=== PATIENT | male | born 1980 | race Caucasian/White ===

== ENCOUNTER 2023-04-25 15:43 | Emergency (ER) | payer MEDICAID, SELFPAY ==
[2023-04-25 15:46] VITALS: BP 141/90; PULSE 88; RESP 18; TEMP 36.4; O2SAT 98; BMI 36.0
--- NOTE | 2023-04-25 15:50 | XR_ITS ---
[address] [address] Patient Name: ARIADNA MONTEIRO MRN: [id number] date: 1980 Sex: M Assigned Patient Location: ER Current Patient Location: ER Accession/Order Number: [id number] Exam Date: 04/25/2023 15:55 Report Date: 04/25/2023 16:44 At the request of: GALINA BROWNE Procedure: XR knee LT 4V EXAM: XR knee LT 4V HISTORY: Left knee pain COMPARISON: None. TECHNIQUE: 4 views FINDINGS: No osseous lesion, fracture, dislocation or subluxation. Joint spaces are normal. No visualized effusion. No visualized soft tissue edema. XR/XR knee LT 4V IMPRESSION: Normal x-rays Electronically authenticated by: MICHAEL HATHAWAY Date: 04/25/2023 16:44
--- NOTE | 2023-04-25 16:03 | ED.LOWEXI1 ---
HPI - Extremity Injury (Lower) General Chief Complaint: Extremity Injury, Lower Stated Complaint: KNEE INJURY Time Seen by Provider: 04/25/23 15:47 Source: patient Mode of arrival: walk-in Limitations: no limitations History of Present Illness HPI Narrative: patient is a 42-year-old male who presents to the emergency department for the evaluation of a left knee injury that occurred two days ago. Patient states he was lifting a piece of plywood when it fell onto his left anterior knee. He denies any other associated symptoms or injuries. He reports pain to the left anterior knee with minimal pain to the left posterior knee. He is able to ambulate. No medications taken prior to arrival. Related Data Home Medications Medication Instructions Recorded Confirmed lisinopril 5 mg tablet 5 mg PO DAILY 04/25/23 04/25/23 Previous Rx's Medication Instructions Recorded naproxen sodium 550 mg tablet 550 mg PO BID PRN pain #10 tabs 04/25/23 Allergies Allergy/AdvReac Type Severity Reaction Status Date / Time Penicillins Allergy Intermediate Verified 04/25/23 15:50 tramadol [From Ultra] Allergy Intermediate Verified 04/25/23 15:50 Review of Systems ROS Constitutional Denies: fever or chills Ears, nose, mouth, and throat Denies: throat pain or neck pain Respiratory Denies: shortness of breath or cough Gastrointestinal Denies: nausea or vomiting Musculoskeletal Reports: extremity pain and joint pain; Denies: back pain or neck pain Integumentary/Breast Denies: rash Neurological Denies: headache Allergic/Immunologic Denies: hives Exam Narrative Exam Narrative: Gen.: Awake, alert, in no distress Head: Normocephalic, atraumatic ENT: Moist mucous membranes Respiratory: No respiratory distress Extremities: left knee is mildly edematous, tender to palpation in the left anterior patella and patellar tendon. No obvious deformity or laxity of the knee. No bony point tenderness of the distal tibia or left hip. 2+ left DP pulse. No abrasions or lacerations the left knee, minimal joint effusion noted with minimal pain to the left posterior knee. Pain with flexion and extension. Psych: Normal mood and affect Neuro: No focal neuro deficit Skin: Warm, dry, intact Constitutional Vital Signs, click to edit/add: Last Vital Signs Temp 97.6 F 04/25/23 15:46 Pulse 88 04/25/23 15:46 Resp 18 04/25/23 15:46 BP 141/90 H 04/25/23 15:46 Pulse Ox 98 04/25/23 15:46 O2 Del Method Room Air 04/25/23 15:46 Course Vital Signs Vital signs: Vital Signs Temperature 97.6 F 04/25/23 15:46 Pulse Rate 88 04/25/23 15:46 Respiratory Rate 18 04/25/23 15:46 Blood Pressure 141/90 H 04/25/23 15:46 Pulse Oximetry 98 04/25/23 15:46 Oxygen Delivery Method Room Air 04/25/23 15:46 Temperature 97.6 F 04/25/23 15:46 Pulse Rate 88 04/25/23 15:46 Respiratory Rate 18 04/25/23 15:46 Blood Pressure 141/90 H 04/25/23 15:46 Pulse Oximetry 98 04/25/23 15:46 Oxygen Delivery Method Room Air 04/25/23 15:46 MDM - Extremity Injury (Lower) MDM Narrative Medical decision making narrative: x-rays of the left knee with no evidence of fracture or dislocation. Patient placed in an Jarrell wrap and remains neurovascularly intact. Rest, ice, elevate. Crutches given as needed and the patient started on NSAIDs. Follow-up with PCP and return to the Emergency Room if symptoms change or worsen. Medical Records Attestation: I reviewed the patient's medical records. Imaging Data XR knee: Attestation: I have reviewed the pertinent imaging results. Radiologist's impression: Procedure: XR knee LT 4V EXAM: XR knee LT 4V HISTORY: Left knee pain COMPARISON: None. TECHNIQUE: 4 views FINDINGS: No osseous lesion, fracture, dislocation or subluxation. Joint spaces are normal. No visualized effusion. No visualized soft tissue edema. IMPRESSION: Normal x-rays Electronically authenticated by: MICHAEL HATHAWAY Date: 04/25/2023 16:44 Discharge Plan Discharge Chief Complaint: Extremity Injury, Lower Clinical Impression: Contusion of left knee Patient Disposition: Home, Self-Care Time of Disposition Decision: 16:54 Condition: Good Prescriptions / Home Meds: New naproxen sodium 550 mg tablet 550 mg PO BID PRN (Reason: pain) Qty: 10 0RF No Action lisinopril 5 mg tablet 5 mg PO DAILY Instructions: Contusion in Adults (ED), Knee Pain (ED) Stand Alone Forms: Portal Instructions Referrals: RODRIGUEZ KAPLAN [Primary Care Provider] - 1 week
== END 2023-04-25 17:07 | disposition home or self-care (01) ==
PROVIDERS: Emergency Provider Emergency Medicine; PCP Nurse Practitioner Family
DX: S80.02XA Contusion of left knee, initial encounter (principal); W20.8XXA Other cause of strike by thrown, projected or falling object, initial encounter; Z79.899 Other long term (current) drug therapy
CPT/HCPCS: 73564; 99283

== ENCOUNTER 2023-06-13 12:43 | Outpatient (OUT) | payer MEDICAID, SELFPAY ==
[2023-06-13 13:12] LABS: Basophils Absolute Auto 0.1 10^3/uL (0.0-0.1); Basophils Percent Auto 0.6 % (0.2-2.0); Eosinophils Absolute Auto 0.1 10^3/uL (0.0-0.7); Eosinophils Percent Auto 0.7 % (0.9-7.0); Hemoglobin 15.3 g/dL (14.0-18.0); Immature Granulocytes Abs Auto 0.05 10^3/uL (0.00-0.03); Immature Granulocytes Pct Auto 0.6 % (0.0-0.5); Lymphocytes Absolute Auto 2.4 10^3/uL (1.2-3.8); Lymphocytes Percent Auto 29.3 % (20.5-60.0); Mean Corpuscular HGB Conc 34.8 g/dL (29.9-35.2); Mean Corpuscular Hemoglobin 29.3 pg (25.9-34.0); Mean Corpuscular Volume 84.1 fL (80.0-94.0); Mean Platelet Volume 8.7 fL (9.5-13.5); Monocytes Absolute Auto 0.6 10^3/uL (0.3-0.8); Neutrophils Percent Auto 61.8 % (43.0-75.0); Platelet Count 175 10^3/uL (150-450); Red Blood Count 5.23 10^6/uL (4.70-6.10); Red Cell Distribution Width 12.3 % (11.0-15.0); White Blood Count 8.1 10^3/uL (4.0-11.0)
[2023-06-13 13:31] LABS: Estimated Average Glucose 94 mg/dL; Glycohemoglobin A1C 4.9 % (4.5-6.2)
[2023-06-13 15:01] LABS: Alanine Aminotransferase 42 U/L (16-63); Albumin Globulin Ratio 1.2; Albumin Level 4.3 g/dL (3.4-5.0); Alkaline Phosphatase 92 U/L (46-116); Anion Gap 11.9; Aspartate Amino Transferase 22 U/L (15-37); BUN Creatinine Ratio 18.5; Bilirubin Total 1.4 mg/dL (0.2-1.0); Carbon Dioxide 26.6 mmol/L (21.0-32.0); Chloride 104 mmol/L (98-107); Chol HDL Ratio 5.2; Cholesterol 197 mg/dL (<=200); Estimated GFR (African America >60 (>=60); Estimated GFR (Non-African Ame >60 (>=60); Free T3 3.18 pg/mL (2.18-3.98); Globulin 3.5 g/dL; Glucose 80 mg/dL (74-106); HDL Cholesterol 38 mg/dL (40-60); Potassium 4.5 mmol/L (3.5-5.1); Sodium 138 mmol/L (136-145); Thyroid Stimulating Hormone 2.037 uIU/mL (0.358-3.740); Total Protein 7.8 g/dL (6.4-8.2); Triglycerides 117 mg/dL (<=150); VLDL CHOLESTEROL 23.4 mg/dL
== END 2023-06-13 12:44 | disposition home or self-care (01) ==
LOC: LAB 12:43
PROVIDERS: PCP Nurse Practitioner Family; Visit Provider Nurse Practitioner Family
DX: Z00.00 Encounter for general adult medical examination without abnormal findings (principal)
CPT/HCPCS: 36415; 80053; 80061; 83036; 83525; 84436; 84443; 84481; 85025

== ENCOUNTER 2023-07-25 15:31 | Outpatient (OUT) | payer MEDICAID, SELFPAY ==
--- NOTE | 2023-07-25 15:39 | XR_ITS ---
The [address] [address] Patient Name: ARIADNA MONTEIRO MRN: [id number] date: 1980 Sex: M Assigned Patient Location: [facility] Current Patient Location: Accession/Order Number: [id number] Exam Date: 07/25/2023 15:39 Report Date: 07/27/2023 09:24 At the request of: RODRIGUEZ KAPLAN Procedure: XR lumbar spine 2-3V EXAMINATION: XR lumbar spine 2-3V HISTORY: Sacrococcygeal Disorder M53.3 low back pain for several months; no known injury COMPARISON: XR L-spine 02/22/2022 FINDINGS: BONES: No significant spondylosis, scoliosis, fracture, or visible bony lesion. DISC SPACES: Moderate narrowing L4-5. PARASPINOUS: Negative. No paraspinous abnormality is seen. OTHER: Negative. XR/XR lumbar spine 2-3V IMPRESSION: 1. L4-5 moderate degenerative disc disease; stable to slightly progressed compared to prior study. Electronically authenticated by: APRYL RIOS Date: 07/27/2023 09:24
== END 2023-07-25 15:32 | disposition home or self-care (01) ==
LOC: RAD 15:33
PROVIDERS: PCP Nurse Practitioner Family; Visit Provider Nurse Practitioner Family
DX: M53.3 Sacrococcygeal disorders, not elsewhere classified (principal); M51.36 Other intervertebral disc degeneration, lumbar region
CPT/HCPCS: 72100

== ENCOUNTER 2023-08-19 14:53 | Outpatient (OUT) | payer MEDICAID, SELFPAY ==
--- NOTE | 2023-08-19 14:59 | XR_ITS ---
The [place] [id number] Patient Name: ARIADNA MONTEIRO MRN: [id number] date: 1980 Sex: M Assigned Patient Location: [facility] Current Patient Location: Accession/Order Number: [id number] Exam Date: 08/19/2023 15:20 Report Date: 08/21/2023 22:08 At the request of: RODRIGUEZ KAPLAN Procedure: XR sacrum coccyx min 2V EXAM: XR sacrum coccyx min 2V HISTORY: Back pain COMPARISON: Lumbar spine x-rays 07/25/2023 TECHNIQUE: 3 views FINDINGS: There is no fracture, dislocation, subluxation or osseous lesion. The sacroiliac joints, pubic symphysis and hip joints are normal. The sacrum and coccyx are unremarkable. Age-related changes of the visualized lumbar spine and lumbosacral junction. XR/XR sacrum coccyx min 2V IMPRESSION: Normal x-rays Electronically authenticated by: MICHAEL HATHAWAY Date: 08/21/2023 22:08
== END 2023-08-19 14:54 | disposition home or self-care (01) ==
LOC: RAD 14:54
PROVIDERS: PCP Nurse Practitioner Family; Visit Provider Nurse Practitioner Family
DX: M53.3 Sacrococcygeal disorders, not elsewhere classified (principal)
CPT/HCPCS: 72220

== ENCOUNTER 2023-09-11 00:45 | Emergency (ER) | payer MEDICAID, SELFPAY ==
[2023-09-11 01:19] VITALS: BP 145/81; PULSE 116; RESP 22; TEMP 37.5; O2SAT 96; BMI 36.9
[2023-09-11 01:38] VITALS: PULSE 116
--- NOTE | 2023-09-11 01:47 | ECG_ITS ---
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
--- NOTE | 2023-09-11 01:51 | ED_ITS ---
HPI - Nausea/Vomiting/Diarrhea General Chief complaint: Nausea/Vomiting/Diarrhea Stated complaint: NAuSEA, VOMITING Time Seen by Provider: 09/11/23 01:48 Source: patient Mode of arrival: walk-in Limitations: no limitations History of Present Illness HPI Narrative: patient states he has been ill for a week. cough, chills, feels dizzy. Watery diarrhea for 3 days and body aches. Not short of breath. No abdominal pain. No known exposures MD elicited complaint: Reports diarrhea Related Data Home Medications Medication Instructions Recorded Confirmed lisinopril 5 mg tablet 5 mg PO DAILY 04/25/23 04/25/23 Previous Rx's Medication Instructions Recorded naproxen sodium 550 mg tablet 550 mg PO BID PRN pain #10 tabs 04/25/23 Allergies Allergy/AdvReac Type Severity Reaction Status Date / Time Penicillins Allergy Intermediate Verified 09/11/23 01:24 tramadol [From Ultram] Allergy Intermediate Verified 09/11/23 01:24 Review of Systems ROS Status of ROS 10 or more systems reviewed and unremark able except as noted in history and below Constitutional Reports: fever and chills PFSH PFSH Social History Smoking status: Never smoker Exam Constitutional Vital Signs, click to edit/add: Last Vital Signs Temp 99.5 F 09/11/23 01:19 Pulse 116 H 09/11/23 01:19 Resp 22 09/11/23 01:19 BP 145/81 H 09/11/23 01:19 Pulse Ox 96 09/11/23 01:19 Common normals: no apparent distress, oriented x3, no limitations, healthy appearing and alert Eye Common normals: PERRL and EOMs intact bilaterally Respiratory Common normals: normal respiratory effort, no retractions, no use of accessory muscles and clear to auscultation bilaterally Cardio Common normals: S1 normal heart sound and S2 normal heart sound Rate: tachycardic GI Other: mild RUQ tenderness Extremity Common normals: normal to inspection and full ROM Neuro Common normals: oriented x3, CN's II-XII intact bilaterally, moves all extremities and no focal motor deficits Psych Appearance: grossly normal Course Vital Signs Vital signs: Vital Signs Temperature 99.5 F 09/11/23 01:19 Pulse Rate 116 H 09/11/23 01:19 Respiratory Rate 22 09/11/23 01:19 Blood Pressure 145/81 H 09/11/23 01:19 Pulse Oximetry 96 09/11/23 01:19 Temperature 99.5 F 09/11/23 01:19 Pulse Rate 116 H 09/11/23 01:19 Respiratory Rate 22 09/11/23 01:19 Blood Pressure 145/81 H 09/11/23 01:19 Pulse Oximetry 96 09/11/23 01:19 MDM - Nausea/Vomiting/Diarrhea MDM Narrative Medical decision making narrative: patient presents with cough, diarrhea and body aches. Latic acid elevated but resolved to normal with hydration. Cxray with findings of bronchiolitis. Patient feeling better after hydration and Toradol. discharged home with zithromax and zofran UA with evidence of hematuria. Will have him follow up with his doctor regarding his hematuria Lab Data Labs: Lab Results 09/11/23 09/11/23 09/11/23 Range/Units 01:20 02:40 04:33 WBC 10.8 (4.0-11.0) 10^3/uL RBC 4.97 (4.70-6.10) 10^6/uL Hgb 14.4 (14.0-18.0) g/dL Hct 42.9 (42.0-54.0) % MCV 86.3 (80.0-94.0) fL MCH 29.0 (25.9-34.0) pg MCHC 33.6 (29.9-35.2) g/dL RDW 11.9 (11.0-15.0) % Plt Count 141 L (150-450) 10^3/uL MPV 8.7 L (9.5-13.5) fL Neut % (Auto) 85.5 H (43.0-75.0) % Lymph % (Auto) 7.0 L (20.5-60.0) % [place] % (Auto) 5.8 (1.7-12.0) % Eos % (Auto) 0.2 L (0.9-7.0) % Baso % (Auto) 0.4 (0.2-2.0) % Neut # (Auto) 9.2 H (1.4-6.5) 10^3/uL Lymph # (Auto) 0.8 L (1.2-3.8) 10^3/uL [place] # (Auto) 0.6 (0.3-0.8) 10^3/uL Eos # (Auto) 0.0 (0.0-0.7) 10^3/uL Baso # (Auto) 0.0 (0.0-0.1) 10^3/uL Abs Immat Gran (auto) 0.12 H (0.00-0.03) 10^3/uL Imm/Tot Granulo (auto) 1.1 H (0.0-0.5) % Sodium 135 L (136-145) mmol/L Potassium 3.8 (3.5-5.1) mmol/L Chloride 100 (98-107) mmol/L Carbon Dioxide 26.4 (21.0-32.0) mmol/L Anion Gap 12.4 BUN 15.0 (7.0-18.0) mg/dL Creatinine 1.62 H (0.70-1.30) mg/dL Est GFR ( Amer) 57 L (>=60) Est GFR (Non-Af Amer) 47 L (>=60) BUN/Creatinine Ratio 9.3 Glucose 159 H (74-106) mg/dL Lactate 2.4 H* 0.8 (0.4-2.0) mmol/L Calcium 9.5 (8.5-10.1) mg/dL Total Bilirubin 1.0 (0.2-1.0) mg/dL AST 17 (15-37) U/L ALT 21 (16-63) U/L Alkaline Phosphatase 95 (46-116) U/L Total Protein 7.5 (6.4-8.2) g/dL Albumin 3.7 (3.4-5.0) g/dL Globulin 3.8 g/dL Albumin/Globulin Ratio 1.0 Urine Color Yellow (YELLOW) Urine Clarity Clear (CLEAR) Urine pH 6.0 (5.0-9.0) Ur Specific [place] 1.015 (1.005-1.025) Urine Protein 30 A (NEG/TRACE) mg/dL Urine Glucose (UA) Negative (NEGATIVE) mg/dL Urine Ketones Negative (NEGATIVE) mg/dL Urine Occult Blood Large A (NEGATIVE) Urine Nitrite Negative (NEGATIVE) Urine Bilirubin Negative (NEGATIVE) Urine Urobilinogen 0.2 (0.2-1.0) EU/dL Ur Leukocyte Esterase Negative (NEGATIVE) Urine RBC 0-2 (0-2) #/HPF Urine WBC None seen (NONE SEEN) #/HPF Ur Squamous Epith Cells None seen (NONE/RARE) #/LPF Urine Crystals None seen (None Seen) #/HPF Urine Bacteria None seen (NONE SEEN) #/HPF Urine Casts None seen (NONE SEEN) #/LPF Urine Mucus None seen (NONE SEEN) Urine Sperm Seen Imaging Data Chest x-ray: Radiologist's impression: TABITHA EMERSON Procedure: XR chest 2V XR chest 2V 09/11/2023 2:35 AM EST CLINICAL INDICATION: Cough COMPARISON: None. TECHNIQUE: PA and lateral views of the chest. FINDINGS: There are no tubes or implants noted. The cardiomediastinal silhouette and pulmonary vasculature are within normal limits. Interstitial lung markings with peribronchial cuffing. No lobar consolidation. No pneumothorax or pleural effusion. Osseous structures and soft tissues are within normal limits. XR/XR chest 2V IMPRESSION: Findings which may represent infectious or inflammatory bronchiolitis. Discharge Plan Discharge Chief Complaint: Nausea/Vomiting/Diarrhea Clinical Impression: Bronchiolitis, Gastroenteritis Patient Disposition: Home, Self-Care Prescriptions / Home Meds: No Action lisinopril 5 mg tablet 5 mg PO DAILY naproxen sodium 550 mg tablet 550 mg PO BID PRN (Reason: pain) Qty: 10 0RF Instructions: Gastroenteritis (ED), Acute Bronchitis (ED) Stand Alone Forms: Portal Instructions Referrals: RODRIGUEZ KAPLAN [Primary Care Provider] - 1 week
--- NOTE | 2023-09-11 01:57 | XR_ITS ---
The [place] [id number] Patient Name: ARIADNA MONTEIRO MRN: [id number] date: 1980 Sex: M Assigned Patient Location: ER Current Patient Location: ER Accession/Order Number: [id number] Exam Date: 09/11/2023 02:35 Report Date: 09/11/2023 02:58 At the request of: TABITHA EMERSON Procedure: XR chest 2V XR chest 2V 09/11/2023 2:35 AM EST CLINICAL INDICATION: Cough COMPARISON: None. TECHNIQUE: PA and lateral views of the chest. FINDINGS: There are no tubes or implants noted. The cardiomediastinal silhouette and pulmonary vasculature are within normal limits. Interstitial lung markings with peribronchial cuffing. No lobar consolidation. No pneumothorax or pleural effusion. Osseous structures and soft tissues are within normal limits. XR/XR chest 2V IMPRESSION: Findings which may represent infectious or inflammatory bronchiolitis. Electronically authenticated by: ANDRE MCDANIELS Date: 09/11/2023 02:58
[2023-09-11] MEDS: 0.9 % SODIUM CHLORIDE 1,000 ML 999 ML IV ×2 (02:13→03:07)
[2023-09-11 02:17] LABS: Basophils Percent Auto 0.4 % (0.2-2.0); Eosinophils Percent Auto 0.2 % (0.9-7.0); Hematocrit 42.9 % (42.0-54.0); Hemoglobin 14.4 g/dL (14.0-18.0); Immature Granulocytes Abs Auto 0.12 10^3/uL (0.00-0.03); Immature Granulocytes Pct Auto 1.1 % (0.0-0.5); Lymphocytes Absolute Auto 0.8 10^3/uL (1.2-3.8); Mean Corpuscular HGB Conc 33.6 g/dL (29.9-35.2); Mean Corpuscular Volume 86.3 fL (80.0-94.0); Mean Platelet Volume 8.7 fL (9.5-13.5); Monocytes Absolute Auto 0.6 10^3/uL (0.3-0.8); Monocytes Percent Auto 5.8 % (1.7-12.0); Neutrophils Absolute Auto 9.2 10^3/uL (1.4-6.5); Neutrophils Percent Auto 85.5 % (43.0-75.0); Platelet Count 141 10^3/uL (150-450); Red Blood Count 4.97 10^6/uL (4.70-6.10); Red Cell Distribution Width 11.9 % (11.0-15.0); White Blood Count 10.8 10^3/uL (4.0-11.0)
[2023-09-11 02:29] LABS: Alanine Aminotransferase 21 U/L (16-63); Albumin Level 3.7 g/dL (3.4-5.0); Alkaline Phosphatase 95 U/L (46-116); Anion Gap 12.4; Aspartate Amino Transferase 17 U/L (15-37); BUN Creatinine Ratio 9.3; Calcium 9.5 mg/dL (8.5-10.1); Carbon Dioxide 26.4 mmol/L (21.0-32.0); Chloride 100 mmol/L (98-107); Estimated GFR (African America 57 (>=60); Estimated GFR (Non-African Ame 47 (>=60); Globulin 3.8 g/dL; Glucose 159 mg/dL (74-106); Potassium 3.8 mmol/L (3.5-5.1); Sodium 135 mmol/L (136-145); Total Protein 7.5 g/dL (6.4-8.2)
[2023-09-11 02:47] LABS: Lactate/Lactic Acid 2.4 mmol/L (0.4-2.0)
[2023-09-11 02:53] LABS: Bilirubin Urine NEGATIVE (NEGATIVE); Blood Urine LARGE (NEGATIVE); Clarity Urine CLEAR (CLEAR); Color Urine YELLOW (YELLOW); Glucose Urine UA NEGATIVE (NEGATIVE); Ketones Urine NEGATIVE (NEGATIVE); Leukocyte Esterase Urine NEGATIVE (NEGATIVE); Nitrite Urine NEGATIVE (NEGATIVE); Protein Urine 30 mg/dL (NEG/TRACE); Specific Gravity Urine 1.015 (1.005-1.025); Urobilinogen Urine 0.2 EU/dL (0.2-1.0)
[2023-09-11 02:55] LABS: Urine Microscopic Indicated YES
[2023-09-11 03:01] LABS: Bacteria Urine NONE SEEN #/HPF (NONE SEEN); Cast Seen? NONE SEEN #/LPF (NONE SEEN); Crystals Seen? None Seen #/HPF (None Seen); Mucus Urine NONE SEEN (NONE SEEN); RBC Urine 0-2 #/HPF (0-2); Sperm Urine SEEN; Squamous Epithelial Cell Urine NONE SEEN #/LPF (NONE/RARE); WBC Urine NONE SEEN #/HPF (NONE SEEN)
[2023-09-11] MEDS: ACETAMINOPHEN 325 MG TABLET 1000 MG PO (03:07)
[2023-09-11] MEDS: KETOROLAC TROMETHAMINE 30 MG/ML VIAL IVP (03:50)
[2023-09-11 05:29] LABS: Lactate/Lactic Acid 0.8 mmol/L (0.4-2.0)
[2023-09-11 08:52] LABS: C. Difficile PCR NEGATIVE (NEGATIVE)
== END 2023-09-11 06:07 | disposition home or self-care (01) ==
PROVIDERS: Emergency Provider Internal Medicine; PCP Nurse Practitioner Family
DX: K52.9 Noninfective gastroenteritis and colitis, unspecified (principal); J21.9 Acute bronchiolitis, unspecified; Z79.899 Other long term (current) drug therapy
CPT/HCPCS: 0202U; 36415; 71046; 80053; 81001; 83605; 85025; 87045; 87046; 87427; 87493; 93005; 96361; 96374; 99285

== ENCOUNTER 2023-10-16 21:18 | Emergency (ER) | payer MEDICAID, SELFPAY ==
[2023-10-16] VITALS (19 sets, daily range): BP systolic 126–141; BP diastolic 86–95; PULSE 85–113; RESP 8–24; TEMP 37.1; O2SAT 95–98; BMI 36.5
--- OUTSIDE RECORDS SUMMARY | 2023-10-16 21:23 | XMS_ITS | CCD ---
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 Role Phone Nilo Mendez Unavailable Unavailable JEAN HARPER Primary Care Unavailable KENYATTA KEN Attending Unavailable SANDOVALRI, ARTEMIO Consulting Unavailable Tim, Clari A Primary Care Provider [phone] Tim, Clari A Primary Care Provider [phone] Tim, Clari A Primary Care Provider [phone] TIM, CLARI A Primary Care Unavailable SHAHRZAD ZENG Referring Unavailable TIM, CLARI A Primary Care Unavailable TIM, CLARI A Primary Care Unavailable INTERIANOSAHIL R Referring Unavailable TIM, CLARI A Primary Care Unavailable SAHIL INTERIANO R Referring Unavailable INTERIANOSAHIL R Referring Unavailable TIM, CLARI A Primary Care Unavailable SHAHRZAD ZENG Referring Unavailable TIM, CLARI A Primary Care Unavailable TIM, CLARI A Primary Care Unavailable TIM, CLARI A Primary Care Unavailable INTERIANOSAHIL R Referring Unavailable TIM, CLARI A Primary Care Unavailable INTERIANOSAHIL R Referring Unavailable FATUMA MCKEON Referring Unavailable TIM, CLARI A Primary Care Unavailable INTERIANOSAHIL R Referring Unavailable TIM, CLARI A Primary Care Unavailable INTERIANOSAHIL R Referring Unavailable TIM, CLARI A Primary Care Unavailable SAHIL INTERIANO R Referring Unavailable TIM, CLARI A Primary Care Unavailable TIM, CLARI A Primary Care Unavailable INTERIANOSAHIL R Referring Unavailable TIM, CLARI A Primary Care Unavailable INTERIANOSAHIL R Referring Unavailable TIM, CLARI A Primary Care Unavailable INTERIANO, SAHIL R Referring Unavailable INTERIANO, SAHIL R Referring Unavailable TIM, CLARI A Primary Care Unavailable FRANCIS PINTO Attending Unavailable TIM, CLARI A Primary Care Unavailable KATE OLIVIER Attending Unavailable TIM, CLARI A Primary Care Unavailable EUSEBIO, RODRIGUEZ Primary Care Unavailable CONTRERAS ., DR YULI Schmidt Attending Unavailable CONTRERAS ., DR YULI Schmidt Consulting Unavailable CONTRERAS ., DR YULI Schmidt Admitting Unavailable EUSEBIO, RODRIGUEZ Primary Care Unavailable HOY ., DR PEARSON Referring Unavailable HOY ., DR PEARSON Attending Unavailable HOY ., DR PEARSON Consulting Unavailable HOY ., DR PEARSON Admitting Unavailable WEST, DR MICHAEL Carr Consulting Unavailable ZIEBER, DR RIKI Loera Consulting Unavailable ZIEBER, DR RIKI Loera Consulting Unavailable EUSEBIO, RODRIGUEZ Attending Unavailable EUSEBIO, RODRIGUEZ Admitting Unavailable TIM, CLARI Primary Care Unavailable EUSEBIO, RODRIGUEZ Consulting Unavailable EUSEBIO, RODRIGUEZ Admitting Unavailable EUSEBIO, RODRIGUEZ Attending Unavailable EUSEBIO, RODRIGUEZ Primary Care Unavailable Lakshmi Ruiz DDS Attending Unavailable APLINGTIMOTHY Attending Unavailable APLINGTIMOTHY B Referring Unavailable NILLDavid Attending Unavailable EUSEBIO, RODRIGUEZ S Referring Unavailable Allergies Allergy Classification Reported Allergen(s) Allergy Type Date of Onset Reaction(s) Facility Opioid Agonists (13 sources) traMADol Drug Allergy 6 [facility] Penicillins (antibiotic) (13 sources) Penicillins Drug Allergy 1 [facility] (6 sources) Penicillins; Translations: [penicillins] Propensity to adverse reactions to drug 1 [place] (5 sources) traMADol Drug Allergy 6 [place] (1 source) Penicillin Drug Allergy 8 [facility] (2 sources) traMADol; Translations: [Ultram] Drug Allergy [facility] Medications Current Medications Medication Drug Class(es) Dates Sig (Normalized) Sig (Original) acetaminophen 500 mg oral tablet (18 sources) Start: 01-08-2011 take 1 tablet by mouth every four hours as needed acetaminophen (TYLENOL) 500 MG tablet Take 500 mg by mouth every 4 hours as needed. 0 01/08/2011 Active allopurinol 100 mg oral tablet (14 sources) Xanthine Oxidase Inhibitor End: 09-13-2021 take 1 tablet by mouth once daily allopurinol (ZYLOPRIM) 100 MG tablet Take 100 mg by mouth daily 0 09/13/2021 Discontinued (LIST CLEANUP) citalopram 20 mg oral tablet (5 sources) Serotonin Reuptake Inhibitor take 2 tablets by mouth once daily citalopram (CELEXA) 20 MG tablet Take 40 mg by mouth daily 0 Active take 1 tablet by mouth once stevenson y citalopram (CELEXA) 20 MG tablet Take 20 mg by mouth daily 0 Active ibuprofen 600 mg oral tablet (15 sources) Nonsteroidal Anti-inflammatory Drug Start: 03-01-2021 take 1 tablet by mouth every six hours as needed for pain ibuprofen (IBU) 600 MG tablet Take 1 tablet by mouth every 6 hours as needed for Pain 35 tablet 0 03/01/2021 Active 1 ml ketorolac tromethamine 30 mg/ml cartridge (4 sources) Nonsteroidal Anti-inflammatory Drug, Cyclooxygenase Inhibitor Start: 09-06-2019 ketorolac (TORADOL) injection 30 mg Start: 09-06-2019 take 1 tablet by meme th every eight hours as needed for pain ketorolac (TORADOL) 10 MG tablet Take 1 tablet by mouth every 8 hours as needed for Pain 15 tablet 0 09/06/2019 Active meloxicam 15 mg oral tablet (13 sources) Nonsteroidal Anti-inflammatory Drug Start: 03-27-2021 take 1 tablet by mouth once daily at breakfast meloxicam (MOBIC) 15 MG tablet Take 1 tablet by mouth daily (with breakfast) 60 tablet 1 03/27/2021 Active predniSONE 20 mg oral tablet (2 sources) Start: 09-04-2019 End: 09-11-2019 take 1 tablet by mouth twice daily predniSONE (DELTASONE) 20 MG tablet Take 1 tablet by mouth 2 times daily for 7 days 14 tablet 0 09/04/2019 09/11/2019 Active 1 ml triamcinolone acetonide 40 mg/ml prefilled syringe (13 sources) Corticosteroid Start: 03-27-2021 triamcinolone acetonide (KENALOG-40) injection 40 mg Completed/Discontinued Medications Medication Drug Class(es) Dates Sig (Normalized) Sig (Original) acetaminophen 325 mg / HYDROcodone bitartrate 5 mg oral tablet (3 sources) Opioid Agonist Start: 09-13-2021 End: 09-13-2021 HYDROcodone-acetam inophen (NORCO) 5-325 MG per tablet 1 tablet Start: 09-04-2019 End: 09-09-2019 take 1 tablet by mouth every six hours as needed for pain HYDROcodone-acetaminophen (NORCO) 5-325 MG per tablet Indications: Injury of right knee, initial encounter , Effusion of right knee joint Take 1 tablet by mouth every 6 hours as needed for Pain for up to 5 days. 15 tablet 0 09/04/2019 09/09/2019 Active acetaminophen 325 mg / oxyCODONE hydrochloride 5 mg oral tablet (1 source) Opioid Agonist Start: 09-04-2019 End: 09-04-2019 oxyCODONE-acetaminophen (PERCOCET) 5-325 MG per tablet 2 tablet 200 actuat albuterol 0.09 mg/actuat metered dose inhaler (1 source) beta2-Adrenergic Agonist End: 05-12-2019 take 2 puff(s) by inhalation every six hours as needed for wheezing albuterol (PROVENTIL HFA;VENTOLIN HFA) 108 (90 BASE) MCG/ACT inhaler Inhale 2 puffs into the lungs every 6 hours as needed for Wheezing. 0 05/12/2019 Discontinued (LIST CLEANUP) etodolac 400 mg oral tablet (1 source) Nonsteroidal Anti-inflammator y Drug Start: 09-06-2018 End: 05-12-2019 take 1 tablet by mouth twice daily etodolac (LODINE) 400 MG tablet Take 1 tablet by mouth 2 times daily 30 tablet 0 09/06/2018 05/12/2019 Discontinued (LIST CLEANUP) Problems Active Problems Problem Classification Problem Date Documented Date Episodic/Chronic Abdominal pain (1 source) Flank pain; Translations: [Unspecified abdominal pain] Episodic Essential hypertension (1 source) Essential (primary) hypertension; Translations: [ESSENTIAL PRIMARY HYPERTENSION] Onset: 07-09-2022 Chronic Genitourinary symptoms and ill-defined conditions (1 source) Microscopic hematuria; Translations: [Other microscopic hematuria] Episodic Other connective tissue disease (14 sources) Weakness of right hand; Translations: [Other symptoms and signs involving the musculoskeletal system] 04-20-2019 Episodic Other connective tissue disease (4 sources) Weakness of right hand; Translations: [Right hand weakness] 04-20-2019 Other diseases of kidney and ureters (1 source) Hydronephrosis due to ureteral obstruction; Translations: [Hydronephrosis with renal and ureteral calculous obstruction] Episodic Other nervous system disorders (1 source) Other specified diseases of spinal cord; Translations: [OTH SPECIFIED DISEASES SPINAL CORD] Onset: 07-09-2022 Chronic Other non-traumatic joint disorders (4 sources) Effusion of right knee joint; Translations: [Effusion of right knee joint] Onset: 09-04-2019 09-04-2019 Residual codes; unclassified (1 source) Pain; Translations: [Pain, unspecified] Episodic Rheumatoid arthritis and related disease (8 sources) Seropositive rheumatoid arthritis; Translations: [Rheumatoid arthritis with rheumatoid factor, unspecified] Chronic Spondylosis; intervertebral disc disorders; other back problems (6 sources) Other intervertebral disc degeneration, lumbar region; Translations: [Spondylosis without myelopathy or radiculopathy, lumbar region] Onset: 02-25-2022 Chronic Sprains and strains (4 sources) Sprain of knee; Translations: [Strain of muscle of upper limb] Episodic Unclassified (4 sources) Injury of right knee; Translations: [Injury of right knee, initial encounter] Onset: 09-04-2019 09-04-2019 Unclassified (3 sources) LOW BACK PAIN, UNSPECIFIED; Translations: [LOW BACK PAIN, UNSPECIFIED] Onset: 07-09-2022 Past or Other Problems Problem Classification Problem Date Documented Da te Episodic/Chronic Gastrointestinal hemorrhage (18 sources) Rectal hemorrhage; Translations: [Hemorrhage of anus and rectum] Onset: 01-12-2011 01-12-2011 Episodic Open wounds of head; neck; and trunk (18 sources) Fracture of tooth ; Translations: [Fracture of tooth (traumatic), initial encounter for closed fracture] Onset: 09-06-2018 09-06-2018 Episodic Other gastrointestinal disorders (18 sources) Diarrhea; Translations: [Diarrhea, unspecified] Onset: 01-12-2011 01-12-2011 Episodic Other injuries and conditions due to external causes (14 sources) Injury of right knee; Translations: [Unspecified injury of right lower leg, initial encounter] Onset: 09-04-2019 09-04-2019 Episodic Other non-traumatic joint disorders (14 sources) Effusion of right knee joint; Translations: [Effusion, right knee] Onset: 09-04-2019 09-04-2019 Episodic Superficial injury; contusion (19 sources) Contusion of face; Translations: [Contusion of hand] Onset: 09-06-2018 09-06-2018 Episodic Unclassified (1 source) LOW BACK PAIN, UNSPECIFIED; Translations: [LOW BACK PAIN, UNSPECIFIED] Onset: 07-06-2022 Results Test Name Value Interpretation Reference Range Facility Physician Referralon 023 Physician Referral [id number] Normal [facility] MRI LSPINE WO CONon 05-21-20 22 MRI LSPINE WO CON EXAMINATION: MRI LSPINE WO CON HISTORY: Degeneration of lumbar intervertebral disc COMPARISON: No relevant comparison available. TECHNIQUE: A variety of imaging planes and parameters were utilized for visualization of suspected pathology. FINDINGS: For the purposes of numbering, sagittal T2 image # 8 extends from the T11 vertebral body superiorly to the S4 level inferiorly. PARASPINAL AREA: Normal with no visible mass. BONES: Normal alignment of the lumbar vertebral bodies with no acute fracture or spondylolisthesis. Increased T1 and T2 signal in the L4 and L5 vertebral bodies likely representing Modic type II changes. Round area of signal abnormality in the L4 vertebral body measuring 1.8 cm, a hemangioma is favored CORD/CAUDA EQUINA: Normal caliber, contour, and signal intensity. DISC LEVELS: 12-L1: No significant disc/facet abnormality, spinal stenosis, or foraminal stenosis. L1-L2: No significant disc/facet abnormality, spinal stenosis, or foraminal stenosis. L2-L3: No significant disc/facet abnormality, spinal stenosis, or foraminal stenosis. L3-L4: No significant disc/facet abnormality, spinal stenosis, or foraminal stenosis. L4-L5: Moderate disc space narrowing and disc desiccation with endplate sclerosis. Mild diffuse disc/osteophyte complex and facet osteoarthropathy. No central canal stenosis. Minimal bilateral foraminal stenosis. L5-S1: No significant disc/facet abnormality, spinal stenosis, or foraminal stenosis. IMPRESSION: Moderate discogenic and degenerative changes L4-L5 resulting in minimal bilateral foraminal stenosis Electronically authenticated by: MICHAEL RAE Date: 2022-05-21 18:38 Normal [facility] XR FOREIGN BODY EYEon 2021 XR FOREIGN BODY EYE EXAMINATION: XR FOREIGN BODY EYE HISTORY: Foreign body in eye COMPARISON: No relevant comparison available. FINDINGS: ORBITS: Negative for a metallic foreign body. OTHER: Negative. IMPRESSION: 1. No metallic foreign body within the orbits. Electronically authenticated by: RIKI RIOS Date: 2022-05-21 10:36 Normal [facility] XR LSPINE MIN 4 VIEWSon 02-01 XR LSPINE MIN 4 VIEWS EXAMINATION: XR LSPINE MIN 4 VIEWS HISTORY: Low back pain COMPARISON: XR lumbar spine 10/18/2016 FINDINGS: BONES: Unchanged mild anterior wedging of T12 vertebral body; developmental versus remote injury. No acute fracture, bone lesion, or listhesis. Mild degenerative facet arthropathy L4-5. DISC SPACES: Moderate narrowing L4-5. Mild narrowing L5-S1. PARASPINOUS: Negative. No paraspinous abnormality is seen. OTHER: Negative. IMPRESSION: 1. Mild to moderate degenerative changes of the lower lumbar spine; slightly progressed compared to 2017. Electronically authenticated by: RIKI RIOS Date: 2022-02-22 11:06 Normal [facility] CBC with Diffon 09-23-2021 Abs. Basophil 0.02 k/uL Normal 0.0-0.2 [facility] Comment on above: Performed By: #### C ELOY LOPEZ, IPF ####[address] [place] [address] Lab Director: Michael Meyer MD Abs.Imm.Granulocyte 0.02 k/uL Normal 0.00-0.30 [facility] Comment on above: Performed By: #### C ELOY LOPEZ, IPF ####[address] [place] [address] lab Director: Michael Meyer MD Abs.Neutrophil (Seg) 1.28 k/uL Low 1.50-8.10 [facility] Comment on above: Performed By: #### C ELOY LOPEZ, IPF ####[address] [place] [address] lab Director: Michael Meyer MD Basophils/100 WBC (Bld) 1 % Normal 0-2 [facility] Comment on above: Performed By: #### C DP, CP, IPF ####[address] , [place] [id number] Lab Director: Michael Meyer MD Eosinophils (Bld) [#/Vol] 0.00 10*3/uL Normal 0.00-0.44 [facility] Comment on above: Performed By: #### C DP, CP, IPF ####[address] , [place] [id number] Lab Director: Michael Meyer MD Eosinophils/100 WBC (Bld) 0 % Low 1-4 [facility] Comment on above: Performed By: #### C DP, CP, IPF ####[address] , [facility]83 Lab Director: Michael Meyer MD Immature granulocytes/100 WBC (Bld) 1 % High 0 [facility] Comment on above: Performed By: #### C JESSICA, CP, IPF ####[address] , [facility]83 Lab Director: Michael Meyer MD Lymphocytes (Bld) [#/Vol] 0.73 10*3/uL Low 1.10-3.70 [facility] Comment on above: Performed By: #### C DP, CP, IPF ####[address] [place] [address] Lab Director: Michael Meyer MD Lymphocytes/100 WBC (Bld) 33 % Normal 24-43 [facility] Comment on above: Performed By: #### C DP, CP, IPF ####[address] , [place] [id number] Lab Director: Michael Meyer MD Monocytes (Bld) [#/Vol] 0.15 10*3/uL Normal 0.10-1.20 [facility] Comment on above: Performed By: #### C DP, CP, IPF ####[address] , [place] [id number] Lab Director: Michael Meyer MD Monocytes/100 WBC (Bld) 7 % Normal 3-12 [facility] Comment on above: Performed By: #### C DP, CP, IPF ####[address] , [facility]83 Lab Director: Michael Meyer MD Morphology Fernando (Bld) [Interp] Platelet scan shows Normal Platelets Normal [facility] Comment on above: Performed By: #### C DP, CP, IPF ####[address] , [facility]83 Lab Director: Michael Meyer MD Neutrophil (Seg) 58 % Normal 36-65 [facility] Comment on above: Performed By: #### C DP, CP, IPF ####[address] , [facility]83 Lab Director: Michael Meyer MD Erythrocyte distribution width (RBC) [Ratio] 11.2 % Low 11.8-14.4 [facility] Comment on above: Performed By: #### C DP, CP, IPF ####[address] , [place] [id number] Lab Director: Michael Meyer MD Hematocrit (Bld) [Volume fraction] 46.3 % Normal 40.7-50.3 [facility] Comment on above: Performed By: #### C DP, CP, IPF ####[address] [place] [address] Lab Director: Michael Meyer MD Hemoglobin (Bld) [Mass/Vol] 15.6 g/dL Normal 13.0-17.0 [facility] Comment on above: Performed By: #### C DP, CP, IPF ####[address] , [place] [address] Lab Director: Michael Meyer MD MCH (RBC) [Entitic mass] 28.5 pg Normal 25.2-33.5 [facility] Comment on above: Performed By: #### C DP, CP, IPF ####[address] , [place] [id number] lab Director: Michael Meyer MD MCHC (RBC) [Mass/Vol] 33.7 g/dL Normal 28.4-34.8 [facility] Comment on above: Performed By: #### C DP, CP, IPF ####[address] [place] [address] [facility] Director: Michael Meyer MD MCV (RBC) [Entitic vol] 84.6 fL Normal 82.6-102.9 [facility] Comment on above: Performed By: #### C DP, CP, IPF ####[address] [place] [address] Cds Director: Michael Meyer MD NRBC Automated 0.0 per 100 WBC Normal 0.0 [facility] Comment on above: Performed By: #### C DP, CP, IPF ####[address] , [place] [id number] lab Director: Michael Meyer MD Platelet Count See Reflexed IPF Result Normal 138-453 [facility] Comment on above: Performed By: #### C DP, CP, IPF ####[address] , [place] [id number] Lab Director: Michael Meyer MD RBC (Bld) [#/Vol] 5.47 10*6/uL Normal 4.21-5.77 [facility] Comment on above: Performed By: #### C DP, CP, IPF ####[address] , [place] [id number] Lab Director: Michael Meyer MD WBC (Bld) [#/Vol] 2.2 10*3/uL Low 3.5-11.3 [facility] Comment on above: Performed By: #### C DP, CP, IPF ####[facility] [place] [address] Lab Director: Michael Meyer MD Auto Diff Performed NOT REPORTED Normal [facility] Comment on above: Performed By: #### C DP, CP, IPF ####[address] , [place] [phone] Director: Michael Meyer MD MPV NOT REPORTED Normal 8.1-13.5 [facility] Comment on above: Performed By: #### C DP, CP, IPF ####[address] [place] [address] Lab Director: Michael Meyer MD Platelet Comment NOT REPORTED Normal [facility] Comment on above: Performed By: #### C DP, CP, IPF ####[address] [place] [address] Lab Director: Michael Meyer MD RBC morphology finding Nom (Bld) NOT REPORTED Normal [facility] Comment on above: Performed By: #### C DP, CP, IPF ####[address] , [place] [phone] Director: Michael Meyer MD WBC Morphology NOT REPORTED Normal [facility] Comment on above: Performed By: #### C DP, CP, IPF ####[address] [place] [address] Lab Director: Michael Meyer MD Comp Metabolic Profon 2020 (cont.) Normal [facility] Comment on above: Result Comment: Aver age GFR for 40-49 years old: 99 mL/min/1.73sq m Chronic Kidney Disease: <60 mL/min/1.73sq m Kidney failure: <15 mL/min/1.73sq m eGFR calculated using average adult body mass. Additional eGFR calculator available at: http://[email or web address]_crcl_2012.htm Performed By: #### C DP, CP, IPF ####[address] [place] [address] Lab Director: Michael Meyer MD Albumin [Mass/Vol] 4.1 g/dL Normal 3.5-5.2 [facility] Comment on above: Performed By: #### C DP, CP, IPF ####[address] [place] [address] Lab Director: Michael Meyer MD Albumin/Glob Ratio 1.1 Normal 1.0-2.5 [facility] Comment on above: Performed By: #### C DP, CP, IPF ####[address] [place] [address] Lab Director: Michael Meyer MD Alkaline Phos 87 U/L Normal 40-129 [facility] Comment on above: Performed By: #### C DP, CP, IPF ####[address] [place] [address] Lab Director: Michael Meyer MD ALT [Catalytic activity/Vol] 65 U/L High 5-41 [facility] Comment on above: Performed By: #### C DP, CP, IPF ####[address] [place] [address] Lab Director: Micheal Meyer MD Anion gap [Moles/Vol] 13 mmol/L Normal 9-17 [facility] Comment on above: Performed By: #### C DP, CP, IPF ####[address] [place] [address] Lab Director: Michael Meyer MD AST [Catalytic activity/Vol] 68 U/L High <40 [facility] Comment on above: Performed By: #### C DP, CP, IPF ####[address] , [place] [id number] Lab Director: Michael Meyer MD Bilirubin [Mass/Vol] 0.52 mg/dL Normal 0.3-1.2 [facility] Comment on above: Performed By: #### C DP, CP, IPF ####[address] , [place] [id number] lab Director: Michael Meyer MD BUN/CRE Ratio 8 Low 9-20 [facility] Comment on above: Performed By: #### C DP, CP, IPF ####[address] , [place] [id number] lab Director: Michael Meyer MD Calcium [Mass/Vol] 8.8 mg/dL Normal 8.6-10.4 [facility] Comment on above: Performed By: #### C DP, CP, IPF ####[address] , [place] [id number] Lab Director: Michael Meyer MD Chloride [Moles/Vol] 100 mmol/L Normal 98-107 [facility] Comment on above: Performed By: #### C DP, CP, IPF ####[address] [place] [address] Lab Director: Michael Meyer MD CO2 [Moles/Vol] 23 mmol/L Normal 20-31 [facility] Comment on above: Performed By: #### C DP, CP, IPF ####[address] , [place] [id number] lab Director: Michael Meyer MD Creatinine [Mass/Vol] 1.55 mg/dL High 0.70-1.20 [facility] Comment on above: Performed By: #### C DP, CP, IPF ####[address] [place] [address] Lab Director: Michael Meyer MD GFR, Amer >60 Normal >60 [facility] Comment on above: Performed By: #### C DP, CP, IPF ####[address] [place] [address] Lab Director: Michael Meyer MD GFR,non Amer 50 mL/min Low >60 [facility] Comment on above: Performed By: #### C DP, CP, IPF ####[address] [place] [address] Lab Director: Michael Meyer MD Glucose [Mass/Vol] 94 mg/dL Normal 70-99 [facility] Comment on above: Performed By: #### C DP, CP, IPF ####[address] [place] [address] Lab Director: Michael Meyer MD Potassium [Moles/Vol] 3.9 mmol/L Normal 3.7-5.3 [facility] Comment on above: Performed By: #### C DP, CP, IPF ####[address] [place] [address] Lab Director: Michael Meyer MD Protein [Mass/Vol] 7.9 g/dL Normal 6.4-8.3 [facility] Comment on above: Performed By: #### C DP, CP, IPF ####[address] [place] [address] Lab Director: Michael Meyer MD Sodium [Moles/Vol] 136 mmol/L Normal 135-144 [facility] Comment on above: Performed By: #### C DP, CP, IPF ####[address] [place] [address] Lab Director: Michael Meyer MD Staging: Normal [facility] Comment on above: Result Comment: Stag e 1: Some kidney damage normal GFR Stage 2: Mild kidney damage GFR 60-89 Stage 3: Moderate kidney damage GFR 30-59 Stage 4: Severe kidney damage GFR 15-29 Stage 5: Severe kidney damage GFR <15 ESRD - chronic treatment by dialysis or transplant Performed By: #### C DP, CP, IPF ####[address] , [place] [id number] [facility] Director: Michael Meyer MD Urea nitrogen [Mass/Vol] 13 mg/dL Normal 6-20 [facility] Comment on above: Performed By: #### C JESSICA, CP, IPF ####[address] [place] [address] Lab Director: Michael Meyer MD Lactic Acidon 09-23-2021 Lactate [Moles/Vol] 0.9 mmol/L Normal 0.5-2.2 [facility] Comment on above: Performed By: #### L ACTIC ####[address] [place] [address] [facility] Director: Michael Meyer MD Lactic Acid,Whole Bl NOT REPORTED Normal 0.7-2.1 [facility] Comment on above: Performed By: #### L ACTIC ####[address] [place] [address] [facility] Director: Michael Meyer MD PLT, Immature Fract.on 09-23 Platelet, Fluoresc. 42 k/uL Low 138-453 [facility] Comment on above: Performed By: #### C DP, CP, IPF #### [address] [place] [address] Medical Laboratory Technical Officer: Michael Meyer MD PLT, Immature Fract. 1.2 % Normal 1.1-10.3 [facility] Comment on above: Performed By: #### C DP, CP, IPF #### [address] [place], [place] [id number] Medical Laboratory Technical Officer: Michael Meyer MD XR CHEST (SINGLE VIEW FRONTA L)on 09-23-2021 XR CHEST (SINGLE VIEW FRONTAL) EXAMINATION: ONE XRAY VIEW OF THE CHEST 09/22/2021 10:38 pm COMPARISON: 04/20/2019 HISTORY: ORDERING SYSTEM PROVIDED HISTORY: sob cough and pos covid test TECHNOLOGIST PROVIDED HISTORY: sob cough and pos covid test FINDINGS: Heart size and pulmonary vasculature are normal. Minor patchy interstitial/airsp linnette opacities are present bilaterally. Lung volumes are low. No pneumothorax or pleural effusion. Surrounding structures are unremarkable. IMPRESSION: Findings compatible with early COVID-19 pneumonia. Interpreted by: Julio C Calderón Signed by: Julio C Calderón 09/22/21 Final result Normal [facility] Resp Viral Panelon 1 Adenovirus Not detected Normal [facility] Comment on above: Performed By: #### R MONITORING ENGINEER ####[address] [address] Lab Director: Juan R Tang[address] [place] [id number] Lab Director: Michael Meyer MD Bordet.parapertussis Not detected Normal [facility] Comment on above: Performed By: #### R MONITORING ENGINEER ####[address] [place] [address] Lab Director: Juan R Tang[address] [place] [id number] Lab Director: Michael Meyer MD Bordetella pertussis Not detected Normal [facility] Comment on above: Performed By: #### R MONITORING ENGINEER ####[address] [place] [address] Lab Director: Juan R Tang[address] [place] [address] Lab Director: Michael Meyer MD Chlamyd.pneumoniae Not detected Normal [facility] Comment on above: Performed By: #### R MONITORING ENGINEER ####[facility] [address] [place] [address] Lab Director: Juan R [facility] [place] [address] Lab Director: Michael Meyer MD Coronavirus 229E Not detected [facility] Comment on above: Performed By: #### R MONITORING ENGINEER ####[address] [address] Lab Director: Juan R Tang[address] [place] [phone] Director: Michael Meyer MD Coronavirus HKU1 Not detected [facility] Comment on above: Performed By: #### R MONITORING ENGINEER ####[address] [address] Lab Director: Juan R [address] [place] [phone] Director: Michael Meyer MD Coronavirus NL63 Not detected [facility] Comment on above: Performed By: #### R MONITORING ENGINEER ####[address] [address] Lab Director: Juan R [address] [place] [address] Lab Director: Michael Meyer MD Coronavirus OC43 Not detected [facility] Comment on above: Performed By: #### R MONITORING ENGINEER ####[address] [place] [address] Lab Director: Juan R [address] [place] [address] Lab Director: Michael Meyer MD Human Metapneumo Not detected [facility] Comment on above: Performed By: #### R MONITORING ENGINEER ####[facility] [address] [place], [place] [phone] Director: Juan R [address] [place] [address] Lab Director: Michael Meyer MD Influenza A Not detected Normal [facility] Comment on above: Performed By: #### R MONITORING ENGINEER ####[facility] [address] [place] [address] Lab Director: Juan R [address] [place] [address] Lab Director: Michael Meyer MD Influenza B Not detected [facility] Comment on above: Performed By: #### R MONITORING ENGINEER ####[facility] [address] [place], [place] [phone] Director: Juan R [address] [place] [address] Lab Director: Michael Meyer MD Mycoplas.pneumoniae Not detected Normal [facility] Comment on above: Result Comment: Perf ormed by multiplexed nucleic acid assay. Performed By: #### R MONITORING ENGINEER ####[facility] [address] [place], [place] [id number])[phone] Director: Juan R [address] [place] [address] Lab Director: Michael Meyer MD Parainfluenza 1 Not detected Normal [facility] Comment on above: Performed By: #### R MONITORING ENGINEER ####[facility] [address] [place], [place] [id number])[phone] Director: Juan R [address] [place] [address] Lab Director: Michael Meyer MD Parainfluenza 2 Not detected Normal [facility] Comment on above: Performed By: #### R MONITORING ENGINEER ####[facility] [address] [place], [place] [id number])[phone] Director: Juan R [address] [place] [address] Lab Director: Michael Meyer MD Parainfluenza 3 Not detected Normal [facility] Comment on above: Performed By: #### R MONITORING ENGINEER ####[facility] [address] [place], [place] [phone])[phone] Director: Juan R Tang[address] [place] [address] Lab Director: Michael Meyer MD Parainfluenza 4 Not detected Normal [facility] Comment on above: Performed By: #### R MONITORING ENGINEER ####[facility] [address] [place] [address] Lab Director: Juan R [address] [place] [address] Lab Director: Michael Meyer MD Resp Syncytial Virus Not detected Normal [facility] Comment on above: Performed By: #### R MONITORING ENGINEER ####[facility] [address] [place], [place] [id number])[phone] Director: Juan R [address] [place] [address] Lab Director: Michael Meyer MD Rhino/Enterovirus Not detected Normal [facility] Comment on above: Performed By: #### R MONITORING ENGINEER ####[facility] [address] [place] [address] Lab Director: Juan R [address] [place] [address] Lab Director: Michael Meyer MD SARS-CoV-2 (COVID-19) RNA LYNDON+probe Ql (Unsp spec) Detected Abnormal [facility] Comment on above: Result Comment: Resu lts reported to the appropriate Health Department Performed By: #### R MONITORING ENGINEER ####[facility] [address] [place], [place] [id number])[phone] Director: Juan R [address] [place] [address] Lab Director: Michael Meyer MD Resp Viral Panelon 1 Source: .NASOPHARYNGEAL SWAB Normal [facility] Comment on above: Performed By: #### R MONITORING ENGINEER ####[facility] [address] [place], [place] [phone] Director: Juan R [facility] [place] [address] Lab Director: Michael Meyer MD Influenza A H1 NOT REPORTED Normal [facility] Comment on above: Performed By: #### R MONITORING ENGINEER ####[facility] [address] [place], [place] [phone])[phone] Director: Juan R [address] [place] [address] Lab Director: Michael Meyer MD Influenza A H1-2009 NOT REPORTED Normal [facility] Comment on above: Performed By: #### R MONITORING ENGINEER ####[facility] [address] [place] [address] Lab Director: Juan R [address] [place] [address] Lab Director: Michael Meyer MD Influenza A H3 NOT REPORTED Normal [facility] Comment on above: Performed By: #### R MONITORING ENGINEER ####[facility] [address] [place], [place] [phone])[phone] Director: Juan R Tang[address] [place] [address] Lab Director: Michael Meyer MD No Panel Informationon 09-13 No acute findings. [facility] EXAMINATION: THREE XRAY VIEWS OF THE RIGHT ANKLE; THREE XRAY VIEWS OF THE LEFT FOOT 09/13/2021 9:16 am COMPARISON: None. HISTORY: ORDERING SYSTEM PROVIDED HISTORY: Pain TECHNOLOGIST PROVIDED HISTORY: Pain FINDINGS: No acute fracture demonstrated. 2 threaded screws noted medial malleolus from repair prior injury. Alignment anatomic. Small plantar and dorsal calcaneal spurs present. Ipou-qx-orihmess degenerative change primarily midfoot. Overall alignment anatomic. Soft tissues unremarkable. [facility] Jeronimo Art DO - 09/13/2021 EXAMINATION: THREE XRAY VIEWS OF THE RIGHT ANKLE; THREE XRAY VIEWS OF THE LEFT FOOT 09/13/2021 9:16 am COMPARISON: None. HISTORY: ORDERING SYSTEM PROVIDED HISTORY: Pain TECHNOLOGIST PROVIDED HISTORY: Pain FINDINGS: No acute fracture demonstrated. 2 threaded screws noted medial malleolus from repair prior injury. Alignment anatomic. Small plantar and dorsal calcaneal spurs present. Ddtu-vt-wvujsawm degenerative change primarily midfoot. Overall alignment anatomic. Soft tissues unremarkable. IMPRESSION: No acute findings. [employer] Work Phone: [facility] Work Phone: No acute findings. [facility] EXAMINATION: THREE XRAY VIEWS OF THE RIGHT FOOT; THREE XRAY VIEWS OF THE LEFT ANKLE 09/13/2021 9:14 am COMPARISON: None. HISTORY: ORDERING SYSTEM PROVIDED HISTORY: pain TECHNOLOGIST PROVIDED HISTORY: pain FINDINGS: No acute fracture demonstrated. Alignment is anatomic. 2 threaded screws noted within the medial malleolus. Hult-uz-yrpufngz degenerative change primarily midfoot. Small plantar and dorsal calcaneal spurs present. Soft tissues unremarkable. [facility] Jeronimo Art DO - 09/13/2021 EXAMINATION: THREE XRAY VIEWS OF THE RIGHT FOOT; THREE XRAY VIEWS OF THE LEFT ANKLE 09/13/2021 9:14 am COMPARISON: None. HISTORY: ORDERING SYSTEM PROVIDED HISTORY: pain TECHNOLOGIST PROVIDED HISTORY: pain FINDINGS: No acute fracture demonstrated. Alignment is anatomic. 2 threaded screws noted within the medial malleolus. Lfuz-le-hooubabx degenerative change primarily midfoot. Small plantar and dorsal calcaneal spurs present. Soft tissues unremarkable. IMPRESSION: No acute findings. [employer] Phone: No Panel InformationOrdered By: Jeronimo Art on 09-13-2021 [employer] Phone: XR ANKLE LEFT (MIN 3 VIEWS)o n 09-13-2021 XR ANKLE LEFT (MIN 3 VIEWS) EXAMINATION: THREE XRAY VIEWS OF THE RIGHT FOOT; THREE XRAY VIEWS OF THE LEFT ANKLE 09/13/2021 9:14 am COMPARISON: None. HISTORY: ORDERING SYSTEM PROVIDED HISTORY: pain TECHNOLOGIST PROVIDED HISTORY: pain FINDINGS: No acute fracture demonstrated. Alignment is anatomic. 2 threaded screws noted within the medial malleolus. Jbsr-ss-uhxekobj degenerative change primarily midfoot. Small plantar and dorsal calcaneal spurs present. Soft tissues unremarkable. IMPRESSION: No acute findings. Interpreted by: Jeronimo Art DO Signed by: Jeronimo Art DO 09/13/21 Final result Normal [facility] Radiology Study observation (narrative) [employer] Phone: XR ANKLE RIGHT (MIN 3 VIEWS) on 09-13-2021 XR ANKLE RIGHT (MIN 3 VIEWS) EXAMINATION: THREE XRAY VIEWS OF THE RIGHT ANKLE; THREE XRAY VIEWS OF THE LEFT FOOT 09/13/2021 9:16 am COMPARISON: None. HISTORY: ORDERING SYSTEM PROVIDED HISTORY: Pain TECHNOLOGIST PROVIDED HISTORY: Pain FINDINGS: No acute fracture demonstrated. 2 threaded screws noted medial malleolus from repair prior injury. Alignment anatomic. Small plantar and dorsal calcaneal spurs present. Cwry-tc-ewzphoam degenerative change primarily midfoot. Overall alignment anatomic. Soft tissues unremarkable. IMPRESSION: No acute findings. Interpreted by: Jeronimo Art DO Signed by: Jeronimo Art DO 09/13/21 Final result Normal [facility] Study observation (narrative) [employer] Phone: XR FOOT LEFT (MIN 3 VIEWS)on 09-13-2021 XR FOOT LEFT (MIN 3 VIEWS) EXAMINATION: THREE XRAY VIEWS OF THE RIGHT ANKLE; THREE XRAY VIEWS OF THE LEFT FOOT 09/13/2021 9:16 am COMPARISON: None. HISTORY: ORDERING SYSTEM PROVIDED HISTORY: Pain TECHNOLOGIST PROVIDED HISTORY: Pain FINDINGS: No acute fracture demonstrated. 2 threaded screws noted medial malleolus from repair prior injury. Alignment anatomic. Small plantar and dorsal calcaneal spurs present. Xyud-pj-cmfqsokm degenerative change primarily midfoot. Overall alignment anatomic. Soft tissues unremarkable. IMPRESSION: No acute findings. Interpreted by: Jeronimo Art DO Signed by: Jeronimo Art DO 09/13/21 Final result Normal [facility] Study observation (narrative) [employer] Work Phone: XR FOOT RIGHT (MIN 3 VIEWS)o n 09-13-2021 XR FOOT RIGHT (MIN 3 VIEWS) EXAMINATION: THREE XRAY VIEWS OF THE RIGHT FOOT; THREE XRAY VIEWS OF THE LEFT ANKLE 09/13/2021 9:14 am COMPARISON: None. HISTORY: ORDERING SYSTEM PROVIDED HISTORY: pain TECHNOLOGIST PROVIDED HISTORY: pain FINDINGS: No acute fracture demonstrated. Alignment is anatomic. 2 threaded screws noted within the medial malleolus. Lfxu-tc-bsvpitcg degenerative change primarily midfoot. Small plantar and dorsal calcaneal spurs present. Soft tissues unremarkable. IMPRESSION: No acute findings. Interpreted by: Jeronimo Art DO Signed by: Jeronimo Art DO 09/13/21 Final result Normal [facility] Study observation (narrative) [employer] Work Phone: XR ABDOMEN (KUB) (SINGLE AP VIEW)on 05-08-2021 XR ABDOMEN (KUB) (SINGLE AP VIEW) EXAMINATION: ONE SUPINE XRAY VIEW(S) OF THE ABDOMEN 05/08/2021 10:35 am COMPARISON: 01 May 2021 HISTORY: ORDERING SYSTEM PROVIDED HISTORY: Microscopic hematuria FINDINGS: The bowel gas pattern is non obstructive. No organomegaly, free air or abnormal calcifications are noted. Mild levo scoliotic curvature is present. IMPRESSION: Nonobstructive bowel gas pattern. No radiodensities diagnostic of nephroliths. Interpreted by: Kerri Scott MD Signed by: Kerri Sctot MD 05/08/21 Final result Normal [facility] XR ABDOMEN (KUB) (SINGLE AP VIEW)Ordered By: Sahil Interiano on 05-08-2021 Nonobstructive bowel gas pattern. No radiodensities diagnostic of nephroliths. [employer] Phone: EXAMINATION: ONE SUPINE XRAY VIEW(S) OF THE ABDOMEN 05/08/2021 10:35 am COMPARISON: 01 May 2021 HISTORY: ORDERING SYSTEM PROVIDED HISTORY: Microscopic hematuria FINDINGS: The bowel gas pattern is non obstructive. No organomegaly, free air or abnormal calcifications are noted. Mild levo scoliotic curvature is present. [employer] Phone: Luther, Mh[employer] Incoming Radiant Results From Outline - 05/08/2021 2:06 PM EDT EXAMINATION: ONE SUPINE XRAY VIEW(S) OF THE ABDOMEN 05/08/2021 10:35 am COMPARISON: 01 May 2021 HISTORY: ORDERING SYSTEM PROVIDED HISTORY: Microscopic hematuria FINDINGS: The bowel gas pattern is non obstructive. No organomegaly, free air or abnormal calcifications are noted. Mild levo scoliotic curvature is present. IMPRESSION: Nonobstructive bowel gas pattern. No radiodensities diagnostic of nephroliths. [employer] Phone: [employer] Phone: No Panel InformationOrdered By: Fatuma Mckeon on 05-01-2021 1. No acute osseous abnormality of the right ankle. Posttraumatic and postsurgical changes as above. Mild tibiotalar joint osteoarthritis. 2. Acute osseous abnormality of the right foot. Chronic appearing well-defined erosion or subchondral cyst at the base of the 3rd metatarsal without associated joint space loss. This is a nonspecific finding. [employer] Phone: EXAMINATION: THREE XRAY VIEWS OF THE RIGHT ANKLE; TWO XRAY VIEWS OF THE RIGHT FOOT 05/01/2021 11:04 am COMPARISON: None HISTORY: ORDERING SYSTEM PROVIDED HISTORY: Seropositive rheumatoid arthritis (HCC) Chronic right ankle pain and right foot pain. FINDINGS: Right ankle: There has been prior ORIF of the medial malleolus. Hypertrophic osseous changes are present at the tip of the medial and lateral malleolus consistent with remote ligamentous injuries. No acute fracture or dislocation. No evidence of osteochondral lesion. There is mild tibiotalar joint osteoarthritis. No erosions are present. Mild calcaneal enthesopathy at the insertion of the Achilles tendon and the plantar aponeurosis. Right foot: No acute fracture or dislocation is present. Alignment and joint spaces are maintained. Well-defined chronic appearing erosion at the base of the 3rd metatarsal is nonspecific. [employer] Phone: Luther, pn Incoming Radiant Results From Outline - 05/01/2021 5:46 PM EDT EXAMINATION: THREE XRAY VIEWS OF THE RIGHT ANKLE; TWO XRAY VIEWS OF THE RIGHT FOOT 05/01/2021 11:04 am COMPARISON: None HISTORY: ORDERING SYSTEM PROVIDED HISTORY: Seropositive rheumatoid arthritis (HCC) Chronic right ankle pain and right foot pain. FINDINGS: Right ankle: There has been prior ORIF of the medial malleolus. Hypertrophic osseous changes are present at the tip of the medial and lateral malleolus consistent with remote ligamentous injuries. No acute fracture or dislocation. No evidence of osteochondral lesion. There is mild tibiotalar joint osteoarthritis. No erosions are present. Mild calcaneal enthesopathy at the insertion of the Achilles tendon and the plantar aponeurosis. Right foot: No acute fracture or dislocation is present. Alignment and joint spaces are maintained. Well-defined chronic appearing erosion at the base of the 3rd metatarsal is nonspecific. IMPRESSION: 1. No acute osseous abnormality of the right ankle. Posttraumatic and postsurgical changes as above. Mild tibiotalar joint osteoarthritis. 2. Acute osseous abnormality of the right foot. Chronic appearing well-defined erosion or subchondral cyst at the base of the 3rd metatarsal without associated joint space loss. This is a nonspecific finding. [employer] Phone: [employer] Phone: Unremarkable left wrist/left hand series. There are no plain radiographic findings to suggest an active synovial process of bone as rheumatoid arthritis [employer] Phone: EXAMINATION: 2 XRAY VIEWS OF THE LEFT WRIST; TWO XRAY VIEWS OF THE LEFT HAND 05/01/2021 11:10 am COMPARISON: None. HISTORY: ORDERING SYSTEM PROVIDED HISTORY: Seropositive rheumatoid arthritis (HCC) FINDINGS: The bones and joints are unremarkable without definite fracture, dislocation, significant degenerative/erosi ve change, radiopaque foreign body, abnormal soft tissue calcification or bony destructive lesion [employer] Phone: Luther, pn Incoming Radiant Results From Outline - 05/01/2021 11:26 AM EDT EXAMINATION: 2 XRAY VIEWS OF THE LEFT WRIST; TWO XRAY VIEWS OF THE LEFT HAND 05/01/2021 11:10 am COMPARISON: None. HISTORY: ORDERING SYSTEM PROVIDED HISTORY: Seropositive rheumatoid arthritis (HCC) FINDINGS: The bones and joints are unremarkable without definite fracture, dislocation, significant degenerative/erosi ve change, radiopaque foreign body, abnormal soft tissue calcification or bony destructive lesion IMPRESSION: Unremarkable left wrist/left hand series. There are no plain radiographic findings to suggest an active synovial process of bone as rheumatoid arthritis [employer] Phone: [employer] Phone: XR ABDOMEN (KUB) (SINGLE AP VIEW)on 05-01-2021 XR ABDOMEN (KUB) (SINGLE AP VIEW) EXAMINATION: ONE SUPINE XRAY VIEW(S) OF THE ABDOMEN 05/01/2021 10:51 am COMPARISON: None. HISTORY: ORDERING SYSTEM PROVIDED HISTORY: Pain FINDINGS: Nonobstructive bowel gas pattern. No abnormal calcifications overlying the gallbladder urinary tract. No mass effect. Osseous structures grossly intact. IMPRESSION: No significant radiographic abnormality in the abdomen. Interpreted by: Linda Albarran MD Signed by: Linda Albarran MD 05/01/21 Final result Normal [facility] XR ABDOMEN (KUB) (SINGLE AP VIEW)Ordered By: Sahil nIteriano on 05-01-2021 No significant radiographic abnormality in the abdomen. [employer] Phone: EXAMINATION: ONE SUPINE XRAY VIEW(S) OF THE ABDOMEN 05/01/2021 10:51 am COMPARISON: None. HISTORY: ORDERING SYSTEM PROVIDED HISTORY: Pain FINDINGS: Nonobstructive bowel gas pattern. No abnormal calcifications overlying the gallbladder urinary tract. No mass effect. Osseous structures grossly intact. [employer] Phone: [place], pn Incoming Radiant Results From Outline - 05/01/2021 11:21 AM EDT EXAMINATION: ONE SUPINE XRAY VIEW(S) OF THE ABDOMEN 05/01/2021 10:51 am COMPARISON: None. HISTORY: ORDERING SYSTEM PROVIDED HISTORY: Pain FINDINGS: Nonobstructive bowel gas pattern. No abnormal calcifications overlying the gallbladder urinary tract. No mass effect. Osseous structures grossly intact. IMPRESSION: No significant radiographic abnormality in the abdomen. [employer] Phone: [employer] Phone: XR ANKLE LEFT (MIN 3 VIEWS)o n 05-01-2021 XR ANKLE LEFT (MIN 3 VIEWS) EXAMINATION: THREE XRAY VIEWS OF THE LEFT ANKLE 05/01/2021 11:12 am COMPARISON: None. HISTORY: ORDERING SYSTEM PROVIDED HISTORY: Seropositive rheumatoid arthritis (HCC) FINDINGS: There is moderate spurring of the superior aspect of the os calcis. The bones and joints are otherwise unremarkable without definite effusion, acute fracture, dislocation radiopaque foreign body or bony destructive lesion IMPRESSION: Moderate calcaneal spurring Interpreted by: Clarissa Gomez MD Signed by: Clarissa Gomez MD 05/01/21 Final result Normal [facility] XR ANKLE LEFT (MIN 3 VIEWS)O rdered By: Fatuma Mckeon on 05-01-2021 Moderate calcaneal spurring [employer] Phone: EXAMINATION: THREE XRAY VIEWS OF THE LEFT ANKLE 05/01/2021 11:12 am COMPARISON: None. HISTORY: ORDERING SYSTEM PROVIDED HISTORY: Seropositive rheumatoid arthritis (HCC) FINDINGS: There is moderate spurring of the superior aspect of the os calcis. The bones and joints are otherwise unremarkable without definite effusion, acute fracture, dislocation radiopaque foreign body or bony destructive lesion [employer] Phone: Luther, pn Incoming Radiant Results From [employer] - 05/01/2021 11:21 AM EDT EXAMINATION: THREE XRAY VIEWS OF THE LEFT ANKLE 05/01/2021 11:12 am COMPARISON: None. HISTORY: ORDERING SYSTEM PROVIDED HISTORY: Seropositive rheumatoid arthritis (HCC) FINDINGS: There is moderate spurring of the superior aspect of the os calcis. The bones and joints are otherwise unremarkable without definite effusion, acute fracture, dislocation radiopaque foreign body or bony destructive lesion IMPRESSION: Moderate calcaneal spurring [facility] Work Phone: [facility] [employer] Work Phone: XR ANKLE RIGHT (MIN 3 VIEWS) on 05-01-2021 XR ANKLE RIGHT (MIN 3 VIEWS) EXAMINATION: THREE XRAY VIEWS OF THE RIGHT ANKLE; TWO XRAY VIEWS OF THE RIGHT FOOT 05/01/2021 11:04 am COMPARISON: None HISTORY: ORDERING SYSTEM PROVIDED HISTORY: Seropositive rheumatoid arthritis (HCC) Chronic right ankle pain and right foot pain. FINDINGS: Right ankle: There has been prior ORIF of the medial malleolus. Hypertrophic osseous changes are present at the tip of the medial and lateral malleolus consistent with remote ligamentous injuries. No acute fracture or dislocation. No evidence of osteochondral lesion. There is mild tibiotalar joint osteoarthritis. No erosions are present. Mild calcaneal enthesopathy at the insertion of the Achilles tendon and the plantar aponeurosis. Right foot: No acute fracture or dislocation is present. Alignment and joint spaces are maintained. Well-defined chronic appearing erosion at the base of the 3rd metatarsal is nonspecific. IMPRESSION: 1. No acute osseous abnormality of the right ankle. Posttraumatic and postsurgical changes as above. Mild tibiotalar joint osteoarthritis. 2. Acute osseous abnormality of the right foot. Chronic appearing well-defined erosion or subchondral cyst at the base of the 3rd metatarsal without associated joint space loss. This is a nonspecific finding. Interpreted by: Michael Caceres MD Signed by: Michael Caceres MD 05/01/21 Final result Normal [facility] XR FOOT LEFT (2 VIEWS)on XR FOOT LEFT (2 VIEWS) EXAMINATION: TWO XRAY VIEWS OF THE LEFT FOOT 05/01/2021 11:11 am COMPARISON: None. HISTORY: ORDERING SYSTEM PROVIDED HISTORY: Seropositive rheumatoid arthritis (HCC) FINDINGS: There is moderate spurring of the superior and mild spurring of the plantar aspects of the os calcis. There is minimal spurring of the anterior aspect of the distal tibia and dorsal aspect of mid tarsal bones. The bones and joints are otherwise unremarkable without definite fracture, dislocation, more significant degenerative/erosi ve change, abnormal soft tissue calcification, periostitis, radiopaque foreign body or bony destructive lesion IMPRESSION: Mild degenerative changes There are no plain radiographic findings to suggest an active synovial process of bone as rheumatoid arthritis Interpreted by: Clarissa Gomez MD Signed by: Clarissa Gomez MD 05/01/21 Final result Normal [facility] XR FOOT LEFT (2 VIEWS)Ordere d By: Fatuma Mckeon on 05-01-2021 Mild degenerative changes There are no plain radiographic findings to suggest an active synovial process of bone as rheumatoid arthritis [facility] Phone: EXAMINATION: TWO XRAY VIEWS OF THE LEFT FOOT 05/01/2021 11:11 am COMPARISON: None. HISTORY: ORDERING SYSTEM PROVIDED HISTORY: Seropositive rheumatoid arthritis (HCC) FINDINGS: There is moderate spurring of the superior and mild spurring of the plantar aspects of the os calcis. There is minimal spurring of the anterior aspect of the distal tibia and dorsal aspect of mid tarsal bones. The bones and joints are otherwise unremarkable without definite fracture, dislocation, more significant degenerative/erosi ve change, abnormal soft tissue calcification, periostitis, radiopaque foreign body or bony destructive lesion [facility] Phone: [place], pn Incoming Radiant Results From [employer] - 05/01/2021 11:29 AM EDT EXAMINATION: TWO XRAY VIEWS OF THE LEFT FOOT 05/01/2021 11:11 am COMPARISON: None. HISTORY: ORDERING SYSTEM PROVIDED HISTORY: Seropositive rheumatoid arthritis (HCC) FINDINGS: There is moderate spurring of the superior and mild spurring of the plantar aspects of the os calcis. There is minimal spurring of the anterior aspect of the distal tibia and dorsal aspect of mid tarsal bones. The bones and joints are otherwise unremarkable without definite fracture, dislocation, more significant degenerative/erosi ve change, abnormal soft tissue calcification, periostitis, radiopaque foreign body or bony destructive lesion IMPRESSION: Mild degenerative changes There are no plain radiographic findings to suggest an active synovial process of bone as rheumatoid arthritis [facility] Phone: [facility] Phone: XR FOOT RIGHT (2 VIEWS)on XR FOOT RIGHT (2 VIEWS) EXAMINATION: THREE XRAY VIEWS OF THE RIGHT ANKLE; TWO XRAY VIEWS OF THE RIGHT FOOT 05/01/2021 11:04 am COMPARISON: None HISTORY: ORDERING SYSTEM PROVIDED HISTORY: Seropositive rheumatoid arthritis (HCC) Chronic right ankle pain and right foot pain. FINDINGS: Right ankle: There has been prior ORIF of the medial malleolus. Hypertrophic osseous changes are present at the tip of the medial and lateral malleolus consistent with remote ligamentous injuries. No acute fracture or dislocation. No evidence of osteochondral lesion. There is mild tibiotalar joint osteoarthritis. No erosions are present. Mild calcaneal enthesopathy at the insertion of the Achilles tendon and the plantar aponeurosis. Right foot: No acute fracture or dislocation is present. Alignment and joint spaces are maintained. Well-defined chronic appearing erosion at the base of the 3rd metatarsal is nonspecific. IMPRESSION: 1. No acute osseous abnormality of the right ankle. Posttraumatic and postsurgical changes as above. Mild tibiotalar joint osteoarthritis. 2. Acute osseous abnormality of the right foot. Chronic appearing well-defined erosion or subchondral cyst at the base of the 3rd metatarsal without associated joint space loss. This is a nonspecific finding. Interpreted by: Michael Caceres MD Signed by: Michael Caceres MD 05/01/21 Final result Normal [facility] XR HAND LEFT (2 VIEWS)on XR HAND LEFT (2 VIEWS) EXAMINATION: 2 XRAY VIEWS OF THE LEFT WRIST; TWO XRAY VIEWS OF THE LEFT HAND 05/01/2021 11:10 am COMPARISON: None. HISTORY: ORDERING SYSTEM PROVIDED HISTORY: Seropositive rheumatoid arthritis (HCC) FINDINGS: The bones and joints are unremarkable without definite fracture, dislocation, significant degenerative/erosi ve change, radiopaque foreign body, abnormal soft tissue calcification or bony destructive lesion IMPRESSION: Unremarkable left wrist/left hand series. There are no plain radiographic findings to suggest an active synovial process of bone as rheumatoid arthritis Interpreted by: Clarissa Gomez MD Signed by: Clarissa Gomez MD 05/01/21 Final result Normal [facility] XR HAND RIGHT (2 VIEWS)on XR HAND RIGHT (2 VIEWS) EXAMINATION: TWO XRAY VIEWS OF THE RIGHT HAND 05/01/2021 11:12 am COMPARISON: None. HISTORY: ORDERING SYSTEM PROVIDED HISTORY: Seropositive rheumatoid arthritis (HCC) FINDINGS: The bones and joints are unremarkable without definite fracture, dislocation, significant degenerative/erosi ve change, radiopaque foreign body, abnormal soft tissue calcification or bony destructive lesion IMPRESSION: Unremarkable two-view right hand series. There are no definite plain radiographic findings to suggest an active synovial process of bone as rheumatoid arthritis Interpreted by: Clarissa Gomez MD Signed by: Clarissa Gomez MD 05/01/21 Final result Normal [facility] XR HAND RIGHT (2 VIEWS)Order ed By: Fatuma Mckeon on 05-01-2021 Unremarkable two-view right hand series. There are no definite plain radiographic findings to suggest an active synovial process of bone as rheumatoid arthritis [employer] Phone: EXAMINATION: TWO XRAY VIEWS OF THE RIGHT HAND 05/01/2021 11:12 am COMPARISON: None. HISTORY: ORDERING SYSTEM PROVIDED HISTORY: Seropositive rheumatoid arthritis (HCC) FINDINGS: The bones and joints are unremarkable without definite fracture, dislocation, significant degenerative/erosi ve change, radiopaque foreign body, abnormal soft tissue calcification or bony destructive lesion [employer] Phone: [place], [facility] Incoming Radiant Results From [employer] - 05/01/2021 11:24 AM EDT EXAMINATION: TWO XRAY VIEWS OF THE RIGHT HAND 05/01/2021 11:12 am COMPARISON: None. HISTORY: ORDERING SYSTEM PROVIDED HISTORY: Seropositive rheumatoid arthritis (HCC) FINDINGS: The bones and joints are unremarkable without definite fracture, dislocation, significant degenerative/erosi ve change, radiopaque foreign body, abnormal soft tissue calcification or bony destructive lesion IMPRESSION: Unremarkable two-view right hand series. There are no definite plain radiographic findings to suggest an active synovial process of bone as rheumatoid arthritis [employer] Phone: [employer] Phone: XR WRIST LEFT (2 VIEWS)on XR WRIST LEFT (2 VIEWS) EXAMINATION: 2 XRAY VIEWS OF THE LEFT WRIST; TWO XRAY VIEWS OF THE LEFT HAND 05/01/2021 11:10 am COMPARISON: None. HISTORY: ORDERING SYSTEM PROVIDED HISTORY: Seropositive rheumatoid arthritis (HCC) FINDINGS: The bones and joints are unremarkable without definite fracture, dislocation, significant degenerative/erosi ve change, radiopaque foreign body, abnormal soft tissue calcification or bony destructive lesion IMPRESSION: Unremarkable left wrist/left hand series. There are no plain radiographic findings to suggest an active synovial process of bone as rheumatoid arthritis Interpreted by: Clarissa Gomez MD Signed by: Clarissa Gomez MD 05/01/21 Final result Normal [facility] XR WRIST RIGHT (2 VIEWS)on 0 05-01-2021 XR WRIST RIGHT (2 VIEWS) EXAMINATION: 2 XRAY VIEWS OF THE RIGHT WRIST; 05/01/2021 11:11 am COMPARISON: None. HISTORY: ORDERING SYSTEM PROVIDED HISTORY: Seropositive rheumatoid arthritis (HCC) FINDINGS: The bones and joints are unremarkable without definite fracture, dislocation, significant degenerative/erosi ve change, radiopaque foreign body or bony destructive lesion IMPRESSION: Unremarkable two-view right wrist series Interpreted by: Clarissa Gomez MD Signed by: Clarissa Gomez MD 05/01/21 Final result Normal [facility] XR WRIST RIGHT (2 VIEWS)Orde red By: Fatuma Mckeon on 05-01-2021 Unremarkable two-view right wrist series [employer] Phone: EXAMINATION: 2 XRAY VIEWS OF THE RIGHT WRIST; 05/01/2021 11:11 am COMPARISON: None. HISTORY: ORDERING SYSTEM PROVIDED HISTORY: Seropositive rheumatoid arthritis (HCC) FINDINGS: The bones and joints are unremarkable without definite fracture, dislocation, significant degenerative/erosi ve change, radiopaque foreign body or bony destructive lesion [employer] Phone: [place], [facility] Incoming Radiant Results From [employer] - 05/01/2021 11:23 AM EDT EXAMINATION: 2 XRAY VIEWS OF THE RIGHT WRIST; 05/01/2021 11:11 am COMPARISON: None. HISTORY: ORDERING SYSTEM PROVIDED HISTORY: Seropositive rheumatoid arthritis (HCC) FINDINGS: The bones and joints are unremarkable without definite fracture, dislocation, significant degenerative/erosi ve change, radiopaque foreign body or bony destructive lesion IMPRESSION: Unremarkable two-view right wrist series [employer] Phone: [employer] Phone: XR WRIST RIGHT (MIN 3 VIEWS) on 03-01-2021 XR WRIST RIGHT (MIN 3 VIEWS) EXAMINATION: 3 XRAY VIEWS OF THE RIGHT WRIST 03/01/2021 6:30 pm COMPARISON: None. HISTORY: ORDERING SYSTEM PROVIDED HISTORY: right wrist pain after lifting hay lan TECHNOLOGIST PROVIDED HISTORY: right wrist pain after lifting hay lan FINDINGS: Frontal, lateral, and oblique view radiographs of the right wrist were obtained. Bone mineralization is normal. The osseous structures are intact without acute fracture or destructive abnormality. Carpal joint relationships are maintained. No significant degenerative findings. No appreciable soft tissue abnormality. IMPRESSION: Unremarkable right wrist. Interpreted by: Ebenezer Pepe MD Signed by: Ebenezer Pepe MD 03/01/21 Final result Normal [facility] XR WRIST RIGHT (MIN 3 VIEWS) Ordered By: Riki Tucker on 03-01-2021 Unremarkable right wrist. [employer] Phone: EXAMINATION: 3 XRAY VIEWS OF THE RIGHT WRIST 03/01/2021 6:30 pm COMPARISON: None. HISTORY: ORDERING SYSTEM PROVIDED HISTORY: right wrist pain after lifting hay lan TECHNOLOGIST PROVIDED HISTORY: right wrist pain after lifting hay lan FINDINGS: Frontal, lateral, and oblique view radiographs of the right wrist were obtained. Bone mineralization is normal. The osseous structures are intact without acute fracture or destructive abnormality. Carpal joint relationships are maintained. No significant degenerative findings. No appreciable soft tissue abnormality. [employer] Phone: [place], [facility] Incoming Radiant Results From [employer] - 03/01/2021 7:52 PM EDT EXAMINATION: 3 XRAY VIEWS OF THE RIGHT WRIST 03/01/2021 6:30 pm COMPARISON: None. HISTORY: ORDERING SYSTEM PROVIDED HISTORY: right wrist pain after lifting hay lan TECHNOLOGIST PROVIDED HISTORY: right wrist pain after lifting hay lan FINDINGS: Frontal, lateral, and oblique view radiographs of the right wrist were obtained. Bone mineralization is normal. The osseous structures are intact without acute fracture or destructive abnormality. Carpal joint relationships are maintained. No significant degenerative findings. No appreciable soft tissue abnormality. IMPRESSION: Unremarkable right wrist. [employer] Phone: [employer] Phone: XR KNEE RIGHT (1-2 VIEWS)on 11-07-2020 XR KNEE RIGHT (1-2 VIEWS) EXAMINATION: TWO XRAY VIEWS OF THE RIGHT KNEE 11/07/2020 2:42 pm COMPARISON: 09/04/2019 HISTORY: ORDERING SYSTEM PROVIDED HISTORY: Acute pain of right knee FINDINGS: Mild medial compartment joint space narrowing. Moderate to large patellofemoral joint effusion. Mild patellofemoral spurring. No fracture identified. IMPRESSION: Mild degenerative changes are noted. Moderate to large patellofemoral joint effusion is noted. This is of uncertain significance and should be correlated clinically. Interpreted by: Damion Leung MD Signed by: Damion Leung MD 11/07/20 Recipients: EDIE Ramon CNP - (authorizing provider) Final result Normal [facility] XR KNEE RIGHT (3 VIEWS)on Joint effusion without acute osseous abnormality. [facility] EXAMINATION: THREE XRAY VIEWS OF THE RIGHT KNEE 09/04/2019 6:01 pm COMPARISON: Right knee radiographs performed 07/14/2011 surgeons HISTORY: ORDERING SYSTEM PROVIDED HISTORY: Pain after peak pushed him against the gait. TECHNOLOGIST PROVIDED HISTORY: Pain after peak pushed him against the gait. FINDINGS: There is no acute osseous abnormality. The joint spaces are maintained. There is a joint effusion. The periarticular soft tissues are unremarkable. [facility] [place], [facility] Incoming Radiant Results From [employer] - 09/04/2019 6:08 PM EST EXAMINATION: THREE XRAY VIEWS OF THE RIGHT KNEE 09/04/2019 6:01 pm COMPARISON: Right knee radiographs performed 07/14/2011 surgeons HISTORY: ORDERING SYSTEM PROVIDED HISTORY: Pain after peak pushed him against the gait. TECHNOLOGIST PROVIDED HISTORY: Pain after peak pushed him against the gait. FINDINGS: There is no acute osseous abnormality. The joint spaces are maintained. There is a joint effusion. The periarticular soft tissues are unremarkable. IMPRESSION: Joint effusion without acute osseous abnormality. [facility] [employer] XR HAND LEFT (MIN 3 VIEWS)on 05-12-2019 No acute osseous abnormality. [facility] EXAMINATION: THREE XRAY VIEWS OF THE LEFT HAND 05/12/2019 12:22 pm COMPARISON: November 12, 2018 HISTORY: ORDERING SYSTEM PROVIDED HISTORY: pain TECHNOLOGIST PROVIDED HISTORY: pain FINDINGS: There is no evidence of acute fracture. There is normal alignment. No acute joint abnormality. No focal osseous lesion. No focal soft tissue abnormality. [facility] [place], [facility] Incoming Radiant Results From [employer] - 05/12/2019 12:48 PM EDT EXAMINATION: THREE XRAY VIEWS OF THE LEFT HAND 05/12/2019 12:22 pm COMPARISON: November 12, 2018 HISTORY: ORDERING SYSTEM PROVIDED HISTORY: pain TECHNOLOGIST PROVIDED HISTORY: pain FINDINGS: There is no evidence of acute fracture. There is normal alignment. No acute joint abnormality. No focal osseous lesion. No focal soft tissue abnormality. IMPRESSION: No acute osseous abnormality. [facility] MEHREEN COBB MRI BRAIN WO CONTRASTon 04-03 MRI BRAIN WO CONTRAST EXAMINATION: MRI OF THE BRAIN WITHOUT CONTRAST 04/20/2019 11:54 am TECHNIQUE: Multiplanar multisequence MRI of the brain was performed without the administration of intravenous contrast. COMPARISON: None. HISTORY: ORDERING SYSTEM PROVIDED HISTORY: STROKE Initial evaluation. FINDINGS: INTRACRANIAL STRUCTURES/VENTRIC LES: There is no acute infarct. The ventricles and cisternal spaces are normal in size, shape, and configuration for the age of the patient. No areas of abnormal signal are identified in the brain parenchyma. There is no midline shift or mass effect. There are no areas of restricted diffusion. ORBITS: The visualized portion of the orbits demonstrate no acute abnormality. SINUSES: The visualized paranasal sinuses and mastoid air cells are clear. BONES/SOFT TISSUES: The bone marrow signal intensity appears normal. The soft tissues demonstrate no acute abnormality. IMPRESSION: No acute brain parenchymal abnormality. Interpreted by: Tiffanie Hughes MD Signed by: Tiffanie Hughes MD 04/24/19 Final result Normal [facility] MRI CERVICAL SPINE WO CONTRA STon 04-24-2019 MRI CERVICAL SPINE WO CONTRAST EXAMINATION: MRI OF THE CERVICAL SPINE WITHOUT CONTRAST 04/20/2019 11:54 am TECHNIQUE: Multiplanar multisequence MRI of the cervical spine was performed without the administration of intravenous contrast. COMPARISON: None. HISTORY: ORDERING SYSTEM PROVIDED HISTORY: NECK PAIN, CERVICAL SPINE Initial evaluation. FINDINGS: BONES/ALIGNMENT: There is normal alignment of the spine. The vertebral body heights are maintained. The bone marrow signal appears unremarkable. There are vertebral body hemangiomas at C6, and T1. SPINAL CORD: No abnormal signal is identified within the spinal cord. SOFT TISSUES: No paraspinal mass identified. C2-C3: The thecal sac and neural foramina are intact. C3-C4: The thecal sac and neural foramina are intact. C4-C5: The thecal sac and neural foramina are intact. C5-C6: C5 The thecal sac and neural foramina are intact. C6-C7: The thecal sac and neural foramina are intact. C7-T1: The thecal sac and neural foramina are intact. IMPRESSION: No disc abnormality, stenosis of the thecal sac, or narrowing of the neural foramina in the cervical region. Interpreted by: Tiffanie Hughes MD Signed by: Tiffanie Hughes MD 04/24/19 Final result Normal [facility] Vital Signs Date Time Vital Sign Value Performing Clinician Robson henry 09-13-2021 08:22-0500 Diastolic blood pressure 86 mm[Hg] Francis MarleyMadefire Work Phone: [facility] 09-13-2021 08:22-0500 Systolic blood pressure 147 mm[Hg] Francis BeachroMadefire Work Phone: [facility] 09-13-2021 08:20-0500 Body mass index (BMI) [Ratio] 37.2 kg/m2 Francis MarleyMadefire Work Phone: [employer] 09-13-2021 08:20-0500 Body temperature 97.39 [degF] Francis [facility] DO Work Phone: [employer] 09-13-2021 08:20-0500 Body weight 95.25 kg Francis BeachroMadefire Work Phone: [employer] 09-13-2021 08:20-0500 Heart rate 85 /min Francis MarleyMadefire Work Phone: [employer] 09-13-2021 08:20-0500 Respiratory rate 16 /min Francis MarleyMadefire Work Phone: [facility] 09-13-2021 08:20-0500 SaO2% (BldA) [Mass fraction] 99 % Francis Pinto DO Work Phone: [employer] 03-01-2021 18:28-0400 Diastolic blood pressure 96 mm[Hg] Claricordell Bach Work Phone: [employer] Work Phone: 03-01-2021 18:28-0400 Systolic blood pressure 151 mm[Hg] Clari Tim Work Phone: [employer] Work Phone: 03-01-2021 18:26-0400 Body temperature 98.71 [degF] Clari Glasgowhmann Work Phone: [employer] Work Phone: 03-01-2021 18:26-0400 Heart rate 70 /min [employer] [facility] Work Phone: [employer] Work Phone: 03-01-2021 18:26-0400 Respiratory rate 18 /min Clari [employer] Work Phone: [employer] Work Phone: 03-01-2021 18:26-0400 SaO2% (BldA) [Mass fraction] 98 % Clari [employer] Work Phone: [employer] Work Phone: 09-06-2019 20:00-0500 Body Temperature 97.9 [degF] Oscar [employer] [place] [place] 09-06-2019 20:00-0500 BP Diastolic 100 mm[Hg] [facility] [employer] [place] , [place] 09-06-2019 20:00-0500 BP Systolic 154 mm[Hg] [facility] [place] 09-06-2019 20:00-0500 Pulse (Heart Rate) 89 /min [facility] [place] 09-06-2019 20:00-0500 Pulse Oximetry 97 % [facility] [place] 09-06-2019 20:00-0500 Respiratory Rate 19 /min Oscar Zuniga [facility], [place] 09-04-2019 17:38-0500 BMI (Body Mass Index) 36.49 kg/m2 David Perez [facility], [place] 09-04-2019 17:38-0500 Body Temperature 98.2 [degF] [facility] 09-04-2019 17:38-0500 Body weight 93.44 kg David Perez [facility], [place] 09-04-2019 17:38-0500 BP Diastolic 94 mm[Hg] David Perez [facility] 09-04-2019 17:38-0500 BP Systolic 142 mm[Hg] David Perez [facility] 09-04-2019 17:38-0500 Pulse (Heart Rate) 87 /min David Carter [facility], [place] 09-04-2019 17:38-0500 Pulse Oximetry 99 % David Perez [facility] 09-04-2019 17:38-0500 Respiratory Rate 14 /min David Perez [facility], [place] 05-12-2019 12:15-0400 Body Temperature 98.01 [degF] [place] 05-12-2019 12:14-0400 BP Diastolic 85 mm[Hg] [place] 05-12-2019 12:14-0400 BP Systolic 152 mm[Hg] [place] 05-12-2019 12:14-0400 Pulse (Heart Rate) 87 /min [place] 05-12-2019 12:14-0400 Pulse Oximetry 96 % [place]ari [place] 05-12-2019 12:14-0400 Respiratory Rate 16 /min Clari [place] Encounters Encounter Date Encounter Type Care Provider Facility Start: 09-27-2023 ambulatory David DIAMOND Facility :[facility] Start: 09-12-2023 End: 09-13-2023 ambulatory TIMOTHY WILL Not Available Start: 08-22-2023 ambulatory David DARA Facility:Marilu Schmidt [facility] Start: 08-12-2023 ambulatory Lakshmi Ruiz [facility] Start: 07-06-2022 End: 07-07-2022 ambulatory RODRIGUEZ KAPLAN Facility:[facility] Start: 05-21-2022 End: 05-22-2022 ambulatory RODRIGUEZ KAPLAN Facility:[facility] Start: 03-19-2022 End: 03-27-2022 ambulatory RODRIGUEZ KAPLAN Facility:[facility] Start: 02-22-2022 End: 02-23-[address] RIKI RIOS Facility:[facility] Start: 09-23-2021 End: 09-23-2021 [facility]: 09-21-2021 End: 09-21-2021 Emergency department patient visit [facility] Start: 09-13-2021 End: 09-13-2021 Emergency department patient visit PROVIDENCE Indira PINTO [facility] Start: 09-13-2021 End: 09-13-2021 Emergency department patient visit Francis Ribera [facility] DO Work Phone: [facility] ED Comment on above: Sprain of right foot , initial encounter (Primary Dx); Sprain of left ankle, unspecified ligament, initial encounter Start: 05-08-2021 End: 05-11-2021 ambulatory [facility]IL INTERIAN[facility] Start: 05-08-2021 End: 05-10-2021 Subsequent hospital visit by physician Karoline Meek Dr Room 4 [facility] Comment on above: Microscopic hematuri a; Flank pain; Hydronephrosis with ureteral calculus Start: 05-01-2021 End: 05-04-2021 ambulatory SAHIL INTERIANO [facility] Start: 05-01-2021 End: 05-03-2021 Subsequent hospital visit by physician Karoline Meek Dr Room 2 [facility] Comment on above: Seropositive rheumat oid arthritis (HCC) Pain Start: 03-01-2021 End: 03-01-2021 Emergency department patient visit [facility] Start: 03-01-2021 End: 03-01-2021 Emergency department patient visit Clari Tim Work Phone: [facility] ED Comment on above: Strain of right wris t, initial encounter (Primary Dx) Start: 11-07-2020 End: 11-10-2020 ambulatory SHAHRZAD ZENG [facility] Start: 11-07-2020 End: 11-09-2020 Subsequent hospital visit by physician Clari [facility] Start: 09-06-2019 End: 09-06-2019 Emergency department patient visit Oscar Zuniga Work Phone: [facility] ED Comment on above: Sprain of collateral ligament of right knee, initial encounter (Primary Dx) Start: 09-04-2019 End: 09-04-2019 Emergency department patient visit David Reynoso Perez [facility] ED Comment on above: Injury of right knee , initial encounter (Primary Dx); Effusion of right knee joint Start: 05-12-2019 End: 05-12-2019 Emergency department patient visit [facility] ED Comment on above: Contusion of left coles nd including fingers, initial encounter (Primary Dx) Start: 04-20-2019 End: 04-20-2019 Emergency department patient visit JEAN HARPER [facility] Start: 07-29-2017 End: 07-30-2017 Ambulatory Nilo Hastingsen Facility:[facility]urg[facility] Procedures Date Procedure Procedure Detail Performing Clinician Start: 09-13-2021 End: 09-13-2021 Radex ankle complete minimum 3 views Francis Pinto DO Work Phone: Start: 05-08-2021 Radiologic exam abdo men 1 view Sahil Interiano Work Phone: Start: 05-01-2021 End: 05-01-2021 Radex ankle complete minimum 3 views Fatuma Mckeon MD Work Phone: Start: 03-01-2021 Radex wrist complete minimum 3 views Riki Tucker PA-C Work Phone: Start: 09-04-2019 Radiologic examinati on knee 3 views David Reynoso Chris Start: 05-12-2019 Radex hand minimum 3 views Itzel Nice Work Phone: Start: 04-20-2019 Mri brain brain stem w/o contrast material JEAN LEROY Start: 04-20-2019 Mri spinal canal cer vical w/o contrast matrl JEAN LEROY Start: 04-20-2019 IP CONSULT TO NEUROLOGY JEANCANDE AHRPER Plan of Treatment Date Care Activity Detail Author Start: 11-28-2027 DTaP/Tdap/Td vaccine (2 - Td or Tdap) DTaP/Tdap/Td vaccine (2 - Td or Tdap) [facility] Start: 11-28-2027 DTaP/Tdap/Td vaccine (2 - Td) DTaP/Tdap/Td vaccine (2 - Td) [place], [place] Start: 11-25-2021 End: 11-25-2021 Patient encounter procedure 11/25/2021 Office Visit Rheumatology Fatuma Mckeon MD [address] [place] [id number] [facility] Start: 06-24-2021 End: 06-24-2021 Patient encounter procedure 06/24/2021 Office Visit Rheumatology Fatuma Mckeon MD [address] [place] [address] [id number] [facility] Start: 06-03-2021 Influenza vaccination [facility] Start: 2021 Lipid panel Lipid screen [facility] Start: 06-03-2020 Influenza vaccination Flu vaccine (# 1) [place], [place] Start: 06-03-2019 Influenza vaccination Flu vaccine (# 1) [place] Start: 2016 Diabetes screen Diabetes screen [facility] Start: 2000 DTaP/Tdap/Td vaccine (1 - Tdap) DTaP/Tdap/Td vaccine (1 - Tdap) [place], [place] Start: 1996 HIV screen HIV screen [place], [place] Start: 1996 HIV screening [facility] Start: 1994 Varicella Vaccine (1 of 2 - 13+ 2-dose series) Varicella Vaccine (1 of 2 - 13+ 2-dose series) [place], [place] Start: 1993 COVID-19 Vaccine (1) COVID-19 Vaccin e (1) [facility] Start: 1992 DTaP/Tdap/Td vaccine (1 - Tdap) DTaP/Tdap/Td vaccine (1 - Tdap) [place], [place] Start: 1982 Varicella Vaccine (1 of 2 - 2-dose childhood series) Varicella Vaccine (1 of 2 - 2-dose childhood series) [facility] Start: 1981 Hepatitis C screening Hepatitis C sc reen [facility] End: 05-12-2019 Splint application Splint application Procedures STAT One Time for 1 Occurrences starting 05/12/2019 until 05/12/2019 [place], [place] Comment on above: One Time for 1 Occur rences starting 05/12/2019 until 05/12/2019 Immunizations Immunization Date Immunization Notes Care Provider Deisy duong 07-14-2010 influenza virus vacc ine, whole virus Clari Tim [place], [place] Payers Date Payer Category Payer Medicaid [id number] 2020 Unknown [id number] 2019 Unknown [id number] 2019 Unknown [facility] [id number] xxxxxxxxx 2019-Present [address] [address] [place] [address] xxxxxxxxx [id number] 1981 Unknown [id number] 2.16.840.1.156961.3.579.2.175 1981 Unknown [id number] 2.16.840.1.377762.3.579.2.173 1981 Unknown [id number] 2.16.840.1.465496.3.579.2.173 1981 Unknown [id number] 2.16.840.1.382843.3.579.2.173 1981 Unknown [id number] 2.16.840.1.826146.3.579.2.173 1981 Unknown [id number] 2.16.840.1.208752.3.579.2.173 1981 Unknown [id number] 2.16.840.1.659502.3.579.2.173 1981 Unknown [id number] 2.16840.1.307801.3.579.2.173 1981 Unknown [id number] 2.16840.1.490758.3.579.2.173 1981 Unknown [id number] 2.840.1.195814.3.579.2.173 1981 Unknown [id number] 2.16840.1.484561.3.579.2.173 1981 Unknown [id number] 2.16840.1.098318.3.579.2.173 1981 Unknown [id number] 2.16840.1.387126.3.579.2.173 1981 Unknown [id number] 2.16840.1.835919.3.579.2.173 1981 Unknown [id number] 2.16840.1.685096.3.579.2.173 1981 Unknown [id number] 2.16840.1.735373.3.579.2.173 1981 Unknown [id number] 2.16840.1.145223.3.579.2.173 1981 Unknown [id number] 2.16840.1.483825.3.579.2.173 1981 Unknown [id number] 2.16840.1.825182.3.579.2.173 1981 Unknown [id number] 2.16.840.1.953632.3.579.2.173 1981 Unknown [id number] 2.16.840.1.219919.3.579.2.593 1981 Unknown [id number] 2.16.840.1.863498.3.579.2.593 1981 Unknown [id number] 2.16.840.1.289182.3.579.2.593 1981 Unknown [id number] 2.16.840.1.406395.3.579.2.593 1981 Unknown [id number] 2.16.840.1.327589.3.579.2.1259 1981 Unknown [id number] 2.16.840.1.331210.3.579.2.1259 1981 Unknown [id number] 2.16.840.1.629940.3.579.2.727 1959 Unknown [id number] 1.2.840.253893.1.13.239.2.7.3.6 [id number] 1959 Unknown [id number] Social History Date Type Detail Facility Start: 11-08-2014 End: 09-04-2019 Tobacco smoking status KYIS Never smoker [facility] Start: 09-04-2019 End: 03-27-2021 Alcohol intake Current non-drinker of alcohol (finding) [place], [place] Start: 10-16-2017 Alcohol Comment [facility] [place] Start: 1980 Sex Assigned At Not on file [place], [place] Start: 05-12-2019 Alcohol intake No Emma [place] Start: 11-08-2014 End: 09-06-2019 Tobacco use and exposure Never used [place], [place] Exposure to SARS-CoV -2 (event) Not sure [facility] Start: 03-27-2021 Alcohol Comment very rare Emma parikh Work Phone: Consultation note 07-06-2022 Note Date & Type Note Facility 07-06-2022 Note CONSULTATION CONSULTATION DATE: 07/06/2022 CHIEF COMPLAINT: Low back pain.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
--- NOTE | 2023-10-16 21:35 | ED_ITS ---
HPI - General Adult General Chief complaint: Chest Pain Stated complaint: Chest Pain, Nausea/Vomiting, Dizziness Time Seen by Provider: 10/16/23 21:29 Source: patient Mode of arrival: walk-in Limitations: no limitations History of Present Illness HPI narrative: patient states he has not felt well since yesterday. Describes chest tightness and productive cough. Feels short of breath and has a headache. Nonsmoker. No body aches. no associated nausea Onset (ago): day(s) Related Data Home Medications Medication Instructions Recorded Confirmed No Known Home Medications 10/16/23 10/16/23 Allergies Allergy/AdvReac Type Severity Reaction Status Date / Time Penicillins Allergy Intermediate Verified 09/11/23 01:24 tramadol [From Ultram] Allergy Intermediate Verified 09/11/23 01:24 Review of Systems ROS Status of ROS 10 or more systems reviewed and unremark able except as noted in history and below [facility] Social History Smoking status: Never smoker Exam Constitutional Vital Signs, click to edit/add: Last Vital Signs Temp 98.7 F 10/16/23 21:21 Pulse 95 H 10/16/23 22:41 Resp 17 10/16/23 22:41 BP 137/86 10/16/23 22:41 Pulse Ox 98 10/16/23 22:41 O2 Del Method Room Air 10/16/23 21:21 Common normals: no apparent distress, average body habitus and oriented x3 Eye Common normals: EOMs intact bilaterally and conjunctivae normal Respiratory Common normals: normal respiratory effort, no retractions, no use of accessory muscles and clear to auscultation bilaterally Cardio Common normals: regular rate, regular rhythm, S1 normal heart sound and S2 normal heart sound GI Common normals: Normal to inspection, nondistended, normoactive bowel sounds present, soft to palpation and non-tender Extremity Common normals: normal to inspection and full ROM Neuro Common normals: oriented x3, CN's II-XII intact bilaterally, moves all extremities, no focal motor deficits and no sensory deficits noted Psych Appearance: grossly normal Course Vital Signs Vital signs: Vital Signs Temperature 98.7 F 10/16/23 21:21 Pulse Rate 99 H 10/16/23 21:21 Respiratory Rate 10/16/23 21:21 Blood Pressure 126/93 H 10/16/23 21:21 Pulse Oximetry 95 10/16/23 21:21 Oxygen Delivery Method Room Air 10/16/23 21:21 Temperature 98.7 F 10/16/23 21:21 Pulse Rate 95 H 10/16/23 22:41 Respiratory Rate 17 10/16/23 22:41 Blood Pressure 137/86 10/16/23 22:41 Pulse Oximetry 98 10/16/23 22:41 Oxygen Delivery Method Room Air 10/16/23 21:21 Medical Decision Making MDM Narrative Medical decision making narrative: ill for couple of days . cough. chest pain and heaviness. Feels short of breath. swab positive for flu. CT with findings of bronchiolitis. Patient treated with zpak and referred to his PCP Lab Data Labs: Lab Results 10/16/23 10/16/23 Range/Units 21:40 21:42 WBC 7.3 (4.0-11.0) 10^3/uL RBC 5.04 (4.70-6.10) 10^6/uL Hgb 14.7 (14.0-18.0) g/dL Hct 43.6 (42.0-54.0) % MCV 86.5 (80.0-94.0) fL MCH 29.2 (25.9-34.0) pg MCHC 33.7 (29.9-35.2) g/dL RDW 12.6 (11.0-15.0) % Plt Count 109 L (150-450) 10^3/uL MPV 8.6 L (9.5-13.5) fL Neut % (Auto) 67.7 (43.0-75.0) % Lymph % (Auto) 10.9 L (20.5-60.0) % [place] % (Auto) 16.3 H (1.7-12.0) % Eos % (Auto) 2.5 (0.9-7.0) % Baso % (Auto) 1.0 (0.2-2.0) % Neut # (Auto) 4.9 (1.4-6.5) 10^3/uL Lymph # (Auto) 0.8 L (1.2-3.8) 10^3/uL [place] # (Auto) 1.2 H (0.3-0.8) 10^3/uL Eos # (Auto) 0.2 (0.0-0.7) 10^3/uL Baso # (Auto) 0.1 (0.0-0.1) 10^3/uL Abs Immat Gran (auto) 0.12 H (0.00-0.03) 10^3/uL Imm/Tot Granulo (auto) 1.6 H (0.0-0.5) % D-Dimer 1.45 H* (<=0.59) mg/L FEU Sodium 135 L (136-145) mmol/L Potassium 4.0 (3.5-5.1) mmol/L Chloride 102 (98-107) mmol/L Carbon Dioxide 25.1 (21.0-32.0) mmol/L Anion Gap 11.9 BUN 6.0 L (7.0-18.0) mg/dL Creatinine 1.37 H (0.70-1.30) mg/dL Est GFR ( Amer) >60 (>=60) Est GFR (Non-Af Amer) 57 L (>=60) BUN/Creatinine Ratio 4.4 Glucose 96 (74-106) mg/dL Calcium 9.0 (8.5-10.1) mg/dL Troponin I High Sens 4.8 (4.0-76.1) pg/mL Adenovirus (PCR) Not detected (NOT DETECTE) C. pneumoniae DNA (PCR) Not detected (NOT DETECTE) Coronavirus Type OC43 Not detected (NOT DETECTE) Coronavirus Type HKU1 Not detected (NOT DETECTE) Coronavirus Type 229E Not detected (NOT DETECTE) Coronavirus Type NL63 Not detected (NOT DETECTE) Human Metapneumovir PCR Not detected (NOT DETECTE) Influ A (H1N1/09) PCR Detected M. pneumoniae (PCR) Not detected (NOT DETECTE) Parainfluenza PCR Not detected (NOT DETECTE) Parainfluenza 2 (PCR) Not detected (NOT DETECTE) Parainfluenza 3 (PCR) Not detected (NOT DETECTE) Parainfluenza 4 (PCR) Not detected (NOT DETECTE) RSV (RT-PCR) Not detected (NOT DETECTE) Entero/Rhino (PCR) Not detected (NOT DETECTE) SARS-CoV-2 (PCR) Not detected (NOT DETECTE) Bordetella pertussis (PCR) Not detected (NOT DETECTE) B parapertussis DNA PCR Not detected (NOT DETECTE) Influenza Type A (PCR) Not detected (NOT DETECTE) Influenza Type B (PCR) Not detected (NOT DETECTE) Imaging Data CT scan - chest: Radiologist's impression: ITS Impressions Chest X-Ray 10/16/23 21:38 IMPRESSION: No acute cardiopulmonary process. Electronically authenticated by: MARCELINO SALVADOR Date: 10/16/2023 22:01 Chest CTA 10/16/23 22:13 IMPRESSION: No evidence for pulmonary embolism or aortic dissection. Diffuse mosaic attenuation throughout the lungs may be seen with bronchiolitis or small airway disease. Electronically authenticated by: MARCELINO SALVADOR Date: 10/16/2023 22:56 Discharge Plan Discharge Chief Complaint: Chest Pain Clinical Impression: Bronchiolitis, Influenza Patient Disposition: Home, Self-Care Prescriptions / Home Meds: No Action No Known Home Medications Instructions: Influenza (ED) Stand Alone Forms: Portal Instructions Referrals: RODRIGUEZ KAPLAN [Primary Care Provider] - 1 week
--- NOTE | 2023-10-16 21:38 | XR_ITS ---
[address] [address] Patient Name: ARIADNA MONTEIRO MRN: [id number] date: 1980 Sex: M Assigned Patient Location: ER Current Patient Location: ER Accession/Order Number: [id number] Exam Date: 10/16/2023 21:44 Report Date: 10/16/2023 22:01 At the request of: TABITHA EMERSON Procedure: XR chest 1V EXAM: XR chest 1V HISTORY: cough COMPARISON: Chest x-ray 09/11/2023 TECHNIQUE: Single AP radiograph of the chest FINDINGS: No pneumothorax, pleural effusion or consolidation. Normal heart size. No acute osseous abnormality. XR/XR chest 1V IMPRESSION: No acute cardiopulmonary process. Electronically authenticated by: MARCELINO SALVADOR Date: 10/16/2023 22:01
--- NOTE | 2023-10-16 21:38 | ECG_ITS ---
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
[2023-10-16 21:46] LABS: Basophils Absolute Auto 0.1 10^3/uL (0.0-0.1); Eosinophils Absolute Auto 0.2 10^3/uL (0.0-0.7); Eosinophils Percent Auto 2.5 % (0.9-7.0); Hematocrit 43.6 % (42.0-54.0); Hemoglobin 14.7 g/dL (14.0-18.0); Immature Granulocytes Abs Auto 0.12 10^3/uL (0.00-0.03); Immature Granulocytes Pct Auto 1.6 % (0.0-0.5); Lymphocytes Absolute Auto 0.8 10^3/uL (1.2-3.8); Lymphocytes Percent Auto 10.9 % (20.5-60.0); Mean Corpuscular HGB Conc 33.7 g/dL (29.9-35.2); Mean Corpuscular Hemoglobin 29.2 pg (25.9-34.0); Mean Corpuscular Volume 86.5 fL (80.0-94.0); Mean Platelet Volume 8.6 fL (9.5-13.5); Monocytes Absolute Auto 1.2 10^3/uL (0.3-0.8); Monocytes Percent Auto 16.3 % (1.7-12.0); Neutrophils Absolute Auto 4.9 10^3/uL (1.4-6.5); Neutrophils Percent Auto 67.7 % (43.0-75.0); Platelet Count 109 10^3/uL (150-450); Red Blood Count 5.04 10^6/uL (4.70-6.10); Red Cell Distribution Width 12.6 % (11.0-15.0); White Blood Count 7.3 10^3/uL (4.0-11.0)
[2023-10-16 22:04] LABS: D Dimer 1.45 mg/L FEU (<=0.59)
[2023-10-16 22:06] LABS: Anion Gap 11.9; BUN Creatinine Ratio 4.4; Carbon Dioxide 25.1 mmol/L (21.0-32.0); Chloride 102 mmol/L (98-107); Estimated GFR (African America >60 (>=60); Estimated GFR (Non-African Ame 57 (>=60); Glucose 96 mg/dL (74-106); Sodium 135 mmol/L (136-145); Troponin I High Sensitivity 4.8 pg/mL (4.0-76.1)
[2023-10-16 22:11] LABS: Adenovirus NOT DETECTED (NOT DETECTE); Bordetella parapertussis NOT DETECTED (NOT DETECTE); Coronavirus 229E NOT DETECTED (NOT DETECTE); Coronavirus HKU1 NOT DETECTED (NOT DETECTE); Coronavirus NL63 NOT DETECTED (NOT DETECTE); Coronavirus OC43 NOT DETECTED (NOT DETECTE); Human Metapneumovirus NOT DETECTED (NOT DETECTE); Human Rhinovirus/Enterovirus NOT DETECTED (NOT DETECTE); Influenza A NOT DETECTED (NOT DETECTE); Influenza B NOT DETECTED (NOT DETECTE); Mycoplasma pneumoniae NOT DETECTED (NOT DETECTE); Parainfluenza Virus 1 NOT DETECTED (NOT DETECTE); Parainfluenza Virus 2 NOT DETECTED (NOT DETECTE); Parainfluenza Virus 3 NOT DETECTED (NOT DETECTE); Parainfluenza Virus 4 NOT DETECTED (NOT DETECTE); Respiratory Syncytial Virus NOT DETECTED (NOT DETECTE); SARS-CoV-2 NOT DETECTED (NOT DETECTE)
--- NOTE | 2023-10-16 22:13 | CT_ITS ---
The [address] [address] Patient Name: ARAIDNA MONTEIRO MRN: [id number] date: 1980 Sex: M Assigned Patient Location: ER Current Patient Location: ER Accession/Order Number: [id number] Exam Date: 10/16/2023 23:30 Report Date: 10/16/2023 22:56 At the request of: TABITHA EMERSON Procedure: CT angio chest EXAM: CTA chest. CLINICAL SYMPTOMS: Male, 43 years, short of breath. COMPARISONS: Chest x-ray 10/16/2023. TECHNIQUE: Helical CTA of the pulmonary arteries was performed following rapid injection of intravenous contrast with coronal and sagittal MIP images following the administration of IV contrast. Dose reduction techniques were achieved by using automated exposure control and/or adjustment of mA and/or KVP according to patient size and/or use of iterative reconstruction technique. FINDINGS: Neck/Mediastinum: Normal imaged thyroid. No lymphadenopathy. Cardiovascular: Normal heart size without pericardial effusion or thickening. Normal caliber of the ascending thoracic aorta and main pulmonary artery. No central filling defects in the pulmonary arteries. No aortic dissection. Lungs/pleura/airways: No pneumothorax, pleural effusion or consolidation. There is diffuse mosaic attenuation throughout the lungs. No concerning pulmonary nodules. The trachea and mainstem bronchi are clear. Atelectasis at the lung bases. Upper Abdomen: Punctate calcification of the spleen likely sequelae of prior granulomatous disease. Musculoskeletal/Soft Tissues: No acute fracture or aggressive osseous abnormality. Normal appearance of the soft tissues. CT/CT angio chest IMPRESSION: No evidence for pulmonary embolism or aortic dissection. Diffuse mosaic attenuation throughout the lungs may be seen with bronchiolitis or small airway disease. Electronically authenticated by: MARCELINO SALVADOR Date: 10/16/2023 22:56
[2023-10-16 23:04] LABS: Influenza A\\H1-2009 DETECTED
[2023-10-16] MEDS: AZITHROMYCIN 250 MG TABLET 500 MG PO (23:45)
== END 2023-10-17 | disposition home or self-care (01) ==
PROVIDERS: Emergency Provider Internal Medicine; PCP Nurse Practitioner Family
DX: J10.1 Influenza due to other identified influenza virus with other respiratory manifestations (principal); Z20.822 Contact with and (suspected) exposure to COVID-19
CPT/HCPCS: 0202U; 36415; 71045; 71275; 80048; 84484; 85025; 85378; 93005; 99285; Q9967

== ENCOUNTER 2023-10-26 13:07 | Outpatient (RCR) | payer MEDICAID, SELFPAY | END 2023-11-03 12:17 | disposition home or self-care (01) | LOC: PT 13:07 | PROVIDERS: PCP Nurse Practitioner Family; Visit Provider Nurse Practitioner Family | DX: R42 Dizziness and giddiness (principal) | CPT/HCPCS: 97012; 97110; 97140; 97162 ==

== ENCOUNTER 2023-11-09 07:04 | Outpatient (OUT) | payer MEDICAID, SELFPAY ==
--- OUTSIDE RECORDS SUMMARY | 2023-11-09 07:06 | XMS_ITS | CCD ---
Author Name Unknown Address [address] [place] [address] Organization [facility] Care Team Providers Care Proj Mgr Name Role Phone Nilo Mendez Unavailable Unavailable JEAN HARPER Primary Care Unavailable KENYATTA KEN Attending Unavailable SANDOVALRI, ARTEMIO Consulting Unavailable Tim, Clari A Primary Care Provider [phone] Tim, Clari A Primary Care Provider [phone] Tim, Clari A Primary Care Provider [phone] TIM, CLARI A Primary Care Unavailable SHAHRZAD [...] Agonists (13 sources) traMADol Drug Allergy 6 [facility] Penicillins (antibiotic) (13 sources) Penicillins Drug Allergy 1 [facility] (6 sources) Penicillins; Translations: [penicillins] Propensity to adverse reactions to drug 1 [place], [place] (5 sources) traMADol Drug Allergy 6 [place] (1 source) Penicillin Drug Allergy 8 [facility] (2 sources) traMADol; Translations: [Ultram] Drug Allergy [facility] Medications Current Medications Medication Drug [...] Facility Physician Referralon 023 Physician Referral [phone] [id number] Normal [facility] MRI LSPINE WO CONon 05-21-20 22 [...] by: MICHAEL RAE Date: 2022-05-21 18:[address] [facility] XR FOREIGN BODY EYEon 2021 XR FOREIGN BODY EYE EXAMINATION: XR FOREIGN BODY EYE HISTORY: Foreign body in eye COMPARISON: No relevant comparison available. FINDINGS: ORBITS: Negative for a metallic foreign body. OTHER: Negative. IMPRESSION: 1. No metallic foreign body within the orbits. Electronically authenticated by: RIKI RIOS Date: 2022-05-21 10:[address] [facility] XR LSPINE MIN 4 VIEWSon 02-01 XR [...] by: RIKI RIOS Date: 2022-02-22 11:[address] [facility] CBC with Diffon 09-23-2021 Abs. Basophil 0.02 k/uL Normal 0.0-0.2 [facility] Comment on above: Performed By: #### C ELOY LOPEZ, IPF ####[address] [place] [address] Lab Director: Michael Meyer MD Abs.Imm.Granulocyte 0.02 k/uL Normal 0.00-0.30 [facility] Comment on above: Performed By: #### C ELOY LOPEZ, IPF ####[address] [place] [address] lab Director: Michael Meyer MD Abs.Neutrophil (Seg) 1.28 k/uL Low 1.50-8.10 [facility] Comment on above: Performed By: #### C ELOY LOPEZ, IPF ####[address] [place] [address] lab Director: Michael Meyer MD Basophils/100 WBC (Bld) 1 % Normal 0-2 M [facility] Comment on above: Performed By: #### C DP, CP, IPF ####[address] , [place] [phone] Lab Director: Michael Meyer MD Eosinophils (Bld) [#/Vol] 0.00 10*3/uL Normal 0.00-0.44 [facility] Comment on above: Performed By: #### C DP, CP, IPF ####[address] , [place] [phone] Lab Director: Michael Meyer MD Eosinophils/100 WBC (Bld) 0 % Low 1-4 [facility] Comment on above: Performed By: #### C DP, CP, IPF ####[address] , [facility] Lab Director: Michael Meyer MD Immature granulocytes/100 WBC (Bld) 1 % High 0 [facility] Comment on above: Performed By: #### C JESSICA, CP, IPF ####[address] , [facility] Lab Director: Michael Meyer MD Lymphocytes (Bld) [#/Vol] 0.73 10*3/uL Low 1.10-3.70 [facility] Comment on above: Performed By: #### C DP, CP, IPF ####[address] [place] [address] Lab Director: Michael Meyer MD Lymphocytes/100 WBC (Bld) 33 % Normal 24-43 [facility] Comment on above: Performed By: #### C DP, CP, IPF ####[address] , [place] [phone] Lab Director: Michael Meyer MD Monocytes (Bld) [#/Vol] 0.15 10*3/uL Normal 0.10-1.20 [facility] Comment on above: Performed By: #### C DP, CP, IPF ####[address] , [place] [phone] Lab Director: Michael Meyer MD Monocytes/100 WBC (Bld) 7 % Normal 3-12 M [facility] Comment on above: Performed By: #### C DP, CP, IPF ####[address] , [facility] Lab Director: Michael Meyer MD Morphology Fernando (Bld) [Interp] Platelet scan shows Normal Platelets Normal [facility] Comment on above: Performed By: #### C DP, CP, IPF ####[address] , [facility] Lab Director: Michael Meyer MD Neutrophil (Seg) 58 % Normal 36-65 [facility] Comment on above: Performed By: #### C DP, CP, IPF ####[address] , [facility] Lab Director: Michael Meyer MD Erythrocyte distribution width (RBC) [Ratio] 11.2 % Low 11.8-14.4 [facility] Comment on above: Performed By: #### C DP, CP, IPF ####[address] , [place] [phone] Lab Director: Michael Meyer MD Hematocrit (Bld) [Volume fraction] 46.3 % Normal 40.7-50.3 [facility] Comment on above: Performed By: #### C DP, CP, IPF ####[address] [place] [address] Lab Director: Michael Meyer MD Hemoglobin (Bld) [Mass/Vol] 15.6 g/dL Normal 13.0-17.0 [facility] Comment on above: Performed By: #### C DP, CP, IPF ####[address] , [place] [phone] Lab Director: Michael Meyer MD MCH (RBC) [Entitic mass] 28.5 pg Normal 25.2-33.5 [facility] Comment on above: Performed By: #### C DP, CP, IPF ####[address] , [place] [phone] lab Director: Michael Meyer MD MCHC (RBC) [Mass/Vol] 33.7 g/dL Normal 28.4-34.8 [facility] Comment on above: Performed By: #### C DP, CP, IPF ####[address] [place] [address] [employer] Director: Michael Meyer MD MCV (RBC) [Entitic vol] 84.6 fL Normal 82.6-102.9 M [facility] Comment on above: Performed By: #### C DP, CP, IPF ####[address] [place] [address] [employer]ky Director: Michael Meyer MD NRBC Automated 0.0 per 100 WBC Normal 0.0 [facility] Comment on above: Performed By: #### C DP, CP, IPF ####[address] , [place] 16[address] lab Director: Michael Meyer MD Platelet Count See Reflexed IPF Result Normal 138-453 [facility] Comment on above: Performed By: #### C DP, CP, IPF ####[address] , [place] 16[address]83 Lab Director: Michael Meyer MD RBC (Bld) [#/Vol] 5.47 10*6/uL Normal 4.21-5.77 [facility] Comment on above: Performed By: #### C DP, CP, IPF ####[address] , [place] 9[address]83 Lab Director: Michael Meyer MD WBC (Bld) [#/Vol] 2.2 10*3/uL Low 3.5-11.3 [facility] Comment on above: Performed By: #### C DP, CP, IPF ####[facility] [place] [address] Lab Director: Michael Meyer MD Auto Diff Performed NOT REPORTED Normal [facility] Comment on above: Performed By: #### C DP, CP, IPF ####[address] , [place] [phone] Director: Michael Meyer MD MPV NOT REPORTED Normal 8.1-13.5 [facility] Comment on above: Performed By: #### C DP, CP, IPF ####[address] [place] [address] Lab Director: Michael Meyer MD Platelet Comment NOT REPORTED Normal [facility] Comment on above: Performed By: #### C DP, CP, IPF ####[address] [place] [address] Lab Director: Michael Meyer MD RBC morphology finding Nom (Bld) NOT REPORTED Normal [facility] Comment on above: Performed By: #### C DP, CP, IPF ####[address] , [place] [phone] Director: Michael Meyer MD WBC Morphology NOT REPORTED Normal [facility] Comment on above: Performed By: #### C DP, CP, IPF ####[address] [place] [address] Lab Director: Michael Meyer MD Comp Metabolic Profon 2020 (cont.) Normal [facility] Comment on above: Result Comment: Aver age GFR for 40-49 years old: 99 mL/min/1.73sq m Chronic Kidney Disease: <60 mL/min/1.73sq m Kidney failure: <15 mL/min/1.73sq m eGFR calculated using average adult body mass. Additional eGFR calculator available at: http://www.[employer]/multiple_crcl_2012.htm Performed By: #### C DP, CP, IPF ####[address] [place] [address] Lab Director: Michael Meyer MD Albumin [Mass/Vol] 4.1 g/dL Normal 3.5-5.2 [facility] Comment on above: Performed By: #### C DP, CP, IPF ####[address] [place] [address] Lab Director: Michael Meyer MD Albumin/Glob Ratio 1.1 Normal 1.0-2.5 [facility] Comment on above: Performed By: #### C DP, CP, IPF ####[address] [place] [address] Lab Director: Michael Meyer MD Alkaline Phos 87 U/L Normal 40-129 [facility] Comment on above: Performed By: #### C DP, CP, IPF ####[address] [place] [address] Lab Director: Michael Meyer MD ALT [Catalytic activity/Vol] 65 U/L High 5-41 [facility] Comment on above: Performed By: #### C DP, CP, IPF ####[address] [place] [address] Lab Director: Michael Meyer MD Anion gap [Moles/Vol] 13 mmol/L Normal 9-17 [facility] Comment on above: Performed By: #### C DP, CP, IPF ####[address] [place] [address] Lab Director: Michael Meyer MD AST [Catalytic activity/Vol] 68 U/L High <40 [facility] Comment on above: Performed By: #### C DP, CP, IPF ####[address] , [place] 713[address] Lab Director: Michael Meyer MD Bilirubin [Mass/Vol] 0.52 mg/dL Normal 0.3-1.2 [facility] Comment on above: Performed By: #### C DP, CP, IPF ####[address] , [place] 170[address]83 lab Director: Michael Meyer MD BUN/CRE Ratio 8 Low 9-20 [facility] Comment on above: Performed By: #### C DP, CP, IPF ####[address] , [place] 2960383 lab Director: Michale Meyer MD Calcium [Mass/Vol] 8.8 mg/dL Normal 8.6-10.4 [facility] Comment on above: Performed By: #### C DP, CP, IPF ####[address] , [place] 6[address] Lab Director: Michael Meyer MD Chloride [Moles/Vol] 100 mmol/L Normal 98-107 [facility] Comment on above: Performed By: #### C DP, CP, IPF ####[address] [place] [address] Lab Director: Michael Meyer MD CO2 [Moles/Vol] 23 mmol/L Normal 20-31 [facility] Comment on above: Performed By: #### C DP, CP, IPF ####[address] , [place] [phone] lab Director: Michael Meyer MD Creatinine [Mass/Vol] 1.55 mg/dL High 0.70-1.20 [facility] Comment on above: Performed By: #### C DP, CP, IPF ####[address] [place] [address] Lab Director: Michael Meyer MD GFR, Amer >60 Normal >60 [facility] Comment on above: Performed By: #### C DP, CP, IPF ####[address] [place] [address] Lab Director: Michael Meyer MD GFR,non Amer 50 mL/min Low >60 [facility] Comment on above: Performed By: #### C DP, CP, IPF ####[address] [place] [address] Lab Director: Michael Meyer MD Glucose [Mass/Vol] 94 mg/dL Normal 70-99 [facility] Comment on above: Performed By: #### C DP, CP, IPF ####[address] [place] [address] Lab Director: Michael Meyer MD Potassium [Moles/Vol] 3.9 mmol/L Normal 3.7-5.3 [facility] Comment on above: Performed By: #### C DP, CP, IPF ####[address] [place] [address] Lab Director: Mihcael Meyer MD Protein [Mass/Vol] 7.9 g/dL Normal 6.4-8.3 [facility] Comment on above: Performed By: #### C DP, CP, IPF ####[address] [place] [address] Lab Director: Michael Meyer MD Sodium [Moles/Vol] 136 mmol/L Normal 135-144 [facility] Comment on above: Performed By: #### C DP, CP, IPF ####[address] [place] [address] Lab Director: Michael Meyer MD Staging: Normal [facility] Comment on above: Result Comment: Stag e 1: Some kidney damage normal GFR Stage 2: Mild kidney damage GFR 60-89 Stage 3: Moderate kidney damage GFR 30-59 Stage 4: Severe kidney damage GFR 15-29 Stage 5: Severe kidney damage GFR <15 ESRD - chronic treatment by dialysis or transplant Performed By: #### C DP, CP, IPF ####[address] , [place] [phone] [facility] Director: Michael Meyer MD Urea nitrogen [Mass/Vol] 13 mg/dL Normal 6-20 [facility] Comment on above: Performed By: #### C JESSICA, CP, IPF ####[address] [place] [address] Lab Director: Michael Meyer MD Lactic Acidon 09-23-2021 Lactate [Moles/Vol] 0.9 mmol/L Normal 0.5-2.2 [facility] Comment on above: Performed By: #### L ACTIC ####[address] [place] [address] [facility] Director: Michael Meyer MD Lactic Acid,Whole Bl NOT REPORTED Normal 0.7-2.1 [facility] Comment on above: Performed By: #### L ACTIC ####[address] [place] [address] [facility] Director: Michael Meyer MD PLT, Immature Fract.on 09-23 Platelet, Fluoresc. 42 k/uL Low 138-453 [facility] Comment on above: Performed By: #### C DP, CP, IPF #### [address] [place] [address] Immigration Investigator: Michael Meyer MD PLT, Immature Fract. 1.2 % Normal 1.1-10.3 [facility] Comment on above: Performed By: #### C DP, CP, IPF #### [address] [place], [place] [address] Immigration Investigator: Michael Meyer MD XR CHEST (SINGLE VIEW [...] Julio C Calderón 09/22/21 Final result Normal [facility] Resp Viral Panelon 1 Adenovirus Not detected Normal [facility] Comment on above: Performed By: #### R [employer] ####[address] [address] Lab Director: Juan R Tang[address] [place] [phone] Lab Director: Michael Meyer MD Bordet.parapertussis Not detected Normal [facility] Comment on above: Performed By: #### R [employer] ####[address] [place] [address] Lab Director: Juan R Tang[address] [place] [phone] Lab Director: Michael Meyer MD Bordetella pertussis Not detected Normal [facility] Comment on above: Performed By: #### R [employer] ####[address] [place] [address] Lab Director: Juan R Tang[address] [place] [address] Lab Director: Michael Meyer MD Chlamyd.pneumoniae Not detected Normal [facility] Comment on above: Performed By: #### R [employer] ####[facility] [address] [place] [address] Lab Director: Juan R [facility] [place] [address] Lab Director: Michael Meyer MD Coronavirus 229E Not detected [facility] Comment on above: Performed By: #### [employer] ####[address] [address] Lab Director: Juan R Tang[address] [place] [phone] Director: Michael Meyer MD Coronavirus HKU1 Not detected [facility] Comment on above: Performed By: #### [employer] ####[address] [address] Lab Director: Juan R Tang[address] [place] [phone] Director: Michael Meyer MD Coronavirus NL63 Not detected [facility] Comment on above: Performed By: #### [employer] ####[address] [address] Lab Director: Juan R [address] [place] [address] Lab Director: Michael Meyer MD Coronavirus OC43 Not detected [facility] Comment on above: Performed By: #### [employer] ####[address] [place] [address] Lab Director: Juan R [address] [place] [address] Lab Director: Michael Meyer MD Human Metapneumo Not detected [facility] Comment on above: Performed By: #### R [employer] ####[facility] [address] [place], [place] [phone] Director: Juan R Tang[address] [place] [address] Lab Director: Michael Meyer MD Influenza A Not detected Normal [facility] Comment on above: Performed By: #### R [employer] ####[facility] [address] [place] [address] Lab Director: Juan R [address] [place] [address] Lab Director: Michael Meyer MD Influenza B Not detected [facility] Comment on above: Performed By: #### R [employer] ####[facility] [address] [place], [place] [phone] Director: Juan R Tang[address] [place] [address] Lab Director: Michael Meyer MD Mycoplas.pneumoniae Not detected Normal [facility] Comment on above: Result Comment: Perf ormed by multiplexed nucleic acid assay. Performed By: #### R [employer] ####[facility] [address] [place], [place] [phone] Director: Juan R Tang[address] [place] [address] Lab Director: Michael Meyer MD Parainfluenza 1 Not detected Normal [facility] Comment on above: Performed By: #### R [employer] ####[facility] [address] [place], [place] [phone] Director: Juan R Tang[address] [place] [address] Lab Director: Michael Meyer MD Parainfluenza 2 Not detected Normal [facility] Comment on above: Performed By: #### R [employer] ####[facility] [address] [place], [place] [phone] Director: Juan R Tagn[address] [place] [address] Lab Director: Michael Meyer MD Parainfluenza 3 Not detected Normal [facility] Comment on above: Performed By: #### R [employer] ####[facility] [address] [place], [place] [phone] Director: Juan R Tang[address] [place] [address] Lab Director: Michael Meyer MD Parainfluenza 4 Not detected Normal [facility] Comment on above: Performed By: #### R [employer] ####[facility] [address] [place] [address] Lab Director: Juan R [address] [place] [address] Lab Director: Michael Meyer MD Resp Syncytial Virus Not detected Normal [facility] Comment on above: Performed By: #### [employer] ####[facility] [address] [place], [place] [phone] Director: Juan R [address] [place] [address] Lab Director: Michael Meyer MD Rhino/Enterovirus Not detected Normal [facility] Comment on above: Performed By: #### R [employer] ####[facility] [address] [place] [address] Lab Director: Juan R Tang[address] [place] [address] Lab Director: Michael Meyer MD SARS-CoV-2 (COVID-19) RNA LYNDON+probe Ql (Unsp spec) Detected Abnormal [facility] Comment on above: Result Comment: Resu lts reported to the appropriate Health Department Performed By: #### R [employer] ####[facility] [address] [place], [place] [phone] Director: Juan R Tang[address] [place] [address] Lab Director: Michael Meyer MD Resp Viral Panelon 1 Source: .NASOPHARYNGEAL SWAB Normal [facility] Comment on above: Performed By: #### R [employer] ####[facility] [address] [place], [place] [phone] Director: Juan R [facility] [place] [address] Lab Director: Michael Meyer MD Influenza A H1 NOT REPORTED Normal [facility] Comment on above: Performed By: #### R [employer] ####[facility] [address] [place], [place] [phone] Director: Juan R Tang[address] [place] [address] Lab Director: Michael Meyer MD Influenza A H1-2009 NOT REPORTED Normal [facility] Comment on above: Performed By: #### R [employer] ####[facility] [address] [place] [address] Lab Director: Juan R Tang[address] [place] [address] Lab Director: Michael Meyer MD Influenza A H3 NOT REPORTED Normal [facility] Comment on above: Performed By: #### R [employer] ####[facility] [address] [place], [place] [phone] Director: Juan R Tang[address] [place] [address] Lab Director: Michael Meyer MD No Panel Informationon 09-13 No acute findings. [facility] EXAMINATION: THREE XRAY VIEWS OF THE RIGHT ANKLE; THREE XRAY VIEWS OF THE LEFT FOOT 09/13/2021 9:16 am COMPARISON: None. HISTORY: ORDERING SYSTEM PROVIDED HISTORY: Pain TECHNOLOGIST PROVIDED HISTORY: Pain FINDINGS: No acute fracture demonstrated. 2 threaded screws noted medial malleolus from repair prior injury. Alignment anatomic. Small plantar and dorsal calcaneal spurs present. Mqbo-jh-gorpyptx degenerative change primarily midfoot. Overall alignment anatomic. Soft tissues unremarkable. [facility] Jeronimo Art DO - 09/13/2021 EXAMINATION: THREE XRAY VIEWS OF THE RIGHT ANKLE; THREE XRAY VIEWS OF THE LEFT FOOT 09/13/2021 9:16 am COMPARISON: None. HISTORY: ORDERING SYSTEM PROVIDED HISTORY: Pain TECHNOLOGIST PROVIDED HISTORY: Pain FINDINGS: No acute fracture demonstrated. 2 threaded screws noted medial malleolus from repair prior injury. Alignment anatomic. Small plantar and dorsal calcaneal spurs present. Zsqx-gl-lzspqizt degenerative change primarily midfoot. Overall alignment anatomic. Soft tissues unremarkable. IMPRESSION: No acute findings. [employer] Work Phone: [facility] Work Phone: No acute findings. [facility] EXAMINATION: THREE XRAY VIEWS OF THE RIGHT FOOT; THREE XRAY VIEWS OF THE LEFT ANKLE 09/13/2021 9:14 am COMPARISON: None. HISTORY: ORDERING SYSTEM PROVIDED HISTORY: pain TECHNOLOGIST PROVIDED HISTORY: pain FINDINGS: No acute fracture demonstrated. Alignment is anatomic. 2 threaded screws noted within the medial malleolus. Dtir-ax-varxndol degenerative change primarily midfoot. Small plantar and dorsal calcaneal spurs present. Soft tissues unremarkable. [facility] Jeronimo Art DO - 09/13/2021 EXAMINATION: THREE XRAY VIEWS OF THE RIGHT FOOT; THREE XRAY VIEWS OF THE LEFT ANKLE 09/13/2021 9:14 am COMPARISON: None. HISTORY: ORDERING SYSTEM PROVIDED HISTORY: pain TECHNOLOGIST PROVIDED HISTORY: pain FINDINGS: No acute fracture demonstrated. Alignment is anatomic. 2 threaded screws noted within the medial malleolus. Utgq-mi-pwklsjkj degenerative change primarily midfoot. Small plantar and dorsal calcaneal spurs present. Soft tissues unremarkable. IMPRESSION: No acute findings. [employer] Phone: No Panel InformationOrdered By: Jeronimo Art on 09-13-2021 [employer] Phone: XR ANKLE LEFT (MIN 3 VIEWS)o n 09-13-2021 XR ANKLE LEFT (MIN 3 VIEWS) EXAMINATION: THREE XRAY VIEWS OF THE RIGHT FOOT; THREE XRAY VIEWS OF THE LEFT ANKLE 09/13/2021 9:14 am COMPARISON: None. HISTORY: ORDERING SYSTEM PROVIDED HISTORY: pain TECHNOLOGIST PROVIDED HISTORY: pain FINDINGS: No acute fracture demonstrated. Alignment is anatomic. 2 threaded screws noted within the medial malleolus. Ahna-js-qqpdjlcf degenerative change primarily midfoot. Small plantar and dorsal calcaneal spurs present. Soft tissues unremarkable. IMPRESSION: No acute findings. Interpreted by: Jeronimo Art DO Signed by: Jeronimo Art DO 09/13/21 Final result Normal [facility] Radiology Study observation (narrative) [email or web address] Phone: XR ANKLE RIGHT (MIN 3 VIEWS) [...] Small plantar and dorsal calcaneal spurs present. Eyqj-fk-wrzjgnmy degenerative change primarily midfoot. Overall alignment anatomic. Soft tissues unremarkable. IMPRESSION: No acute findings. Interpreted by: Jeronimo Art DO Signed by: Jeronimo Art DO 09/13/21 Final result Normal [facility] Radiology Study observation (narrative) [employer] Phone: XR FOOT LEFT (MIN 3 VIEWS)on [...] Small plantar and dorsal calcaneal spurs present. Csdp-hm-htrfqmqa degenerative change primarily midfoot. Overall alignment anatomic. Soft tissues unremarkable. IMPRESSION: No acute findings. Interpreted by: Jeronimo Art DO Signed by: Jeronimo Art DO 09/13/21 Final result Normal [facility] Radiology Study observation (narrative) [employer] Work [...] threaded screws noted within the medial malleolus. Tlgj-cd-vrlntspv degenerative change primarily midfoot. Small plantar and dorsal calcaneal spurs present. Soft tissues unremarkable. IMPRESSION: No acute findings. Interpreted by: Jeronimo Art DO Signed by: Jeronimo Art DO 09/13/21 Final result Normal [facility] Radiology Study observation (narrative) [employer] Work [...] by: Kerri Scott MD Signed by: Kerri Scott MD 05/08/21 Final result Normal [facility] XR ABDOMEN (KUB) (SINGLE AP VIEW)Ordered By: Sahil Interiano on 05-08-2021 Nonobstructive bowel gas pattern. No radiodensities diagnostic of nephroliths. Clctin Phone: EXAMINATION: ONE SUPINE XRAY VIEW(S) OF THE ABDOMEN 05/08/2021 10:35 am COMPARISON: 01 May 2021 HISTORY: ORDERING SYSTEM PROVIDED HISTORY: Microscopic hematuria FINDINGS: The bowel gas pattern is non obstructive. No organomegaly, free air or abnormal calcifications are noted. Mild levo scoliotic curvature is present. Clctin Phone: Luther, Mhpn Incoming Radiant Results From ImpulseFlyer - 05/08/2021 2:06 PM EDT EXAMINATION: ONE SUPINE XRAY VIEW(S) OF THE ABDOMEN 05/08/2021 10:35 am COMPARISON: 01 May 2021 HISTORY: ORDERING SYSTEM PROVIDED HISTORY: Microscopic hematuria FINDINGS: The bowel gas pattern is non obstructive. No organomegaly, free air or abnormal calcifications are noted. Mild levo scoliotic curvature is present. IMPRESSION: Nonobstructive bowel gas pattern. No radiodensities diagnostic of nephroliths. Clctin Phone: Clctin Phone: No Panel InformationOrdered By: Fatuma Mckeon on 05-01-2021 1. No acute osseous abnormality of the right ankle. Posttraumatic and postsurgical changes as above. Mild tibiotalar joint osteoarthritis. 2. Acute osseous abnormality of the right foot. Chronic appearing well-defined erosion or subchondral cyst at the base of the 3rd metatarsal without associated joint space loss. This is a nonspecific finding. Clctin Phone: EXAMINATION: THREE XRAY VIEWS OF THE [...] base of the 3rd metatarsal is nonspecific. Clctin Phone: Luther, pn Incoming Radiant Results From ImpulseFlyer - 05/01/2021 5:46 PM EDT EXAMINATION: THREE [...] space loss. This is a nonspecific finding. Clctin Phone: Clctin Phone: Unremarkable left wrist/left hand series. There are no plain radiographic findings to suggest an active synovial process of bone as rheumatoid arthritis Clctin Phone: EXAMINATION: 2 XRAY VIEWS OF THE LEFT WRIST; TWO XRAY VIEWS OF THE LEFT HAND 05/01/2021 11:10 am COMPARISON: None. HISTORY: ORDERING SYSTEM PROVIDED HISTORY: Seropositive rheumatoid arthritis (HCC) FINDINGS: The bones and joints are unremarkable without definite fracture, dislocation, significant degenerative/erosi ve change, radiopaque foreign body, abnormal soft tissue calcification or bony destructive lesion Clctin Phone: Luther, pn Incoming Radiant Results From ImpulseFlyer - 05/01/2021 11:26 AM EDT EXAMINATION: 2 [...] synovial process of bone as rheumatoid arthritis Clctin Phone: Clctin Phone: XR ABDOMEN (KUB) (SINGLE AP VIEW)on [...] Linda Albarran MD 05/01/21 Final result Normal [facility] XR ABDOMEN (KUB) (SINGLE AP VIEW)Ordered By: Sahil Interiano on 05-01-2021 No significant radiographic abnormality in the abdomen. Clctin Phone: EXAMINATION: ONE SUPINE XRAY VIEW(S) OF THE ABDOMEN 05/01/2021 10:51 am COMPARISON: None. HISTORY: ORDERING SYSTEM PROVIDED HISTORY: Pain FINDINGS: Nonobstructive bowel gas pattern. No abnormal calcifications overlying the gallbladder urinary tract. No mass effect. Osseous structures grossly intact. Clctin Phone: Luther, pn Incoming Radiant Results From ImpulseFlyer - 05/01/2021 11:21 AM EDT EXAMINATION: ONE SUPINE XRAY VIEW(S) OF THE ABDOMEN 05/01/2021 10:51 am COMPARISON: None. HISTORY: ORDERING SYSTEM PROVIDED HISTORY: Pain FINDINGS: Nonobstructive bowel gas pattern. No abnormal calcifications overlying the gallbladder urinary tract. No mass effect. Osseous structures grossly intact. IMPRESSION: No significant radiographic abnormality in the abdomen. Clctin Phone: Clctin Phone: XR ANKLE LEFT (MIN 3 VIEWS)o [...] Clarissa Gomez MD 05/01/21 Final result Normal [facility] XR ANKLE LEFT (MIN 3 VIEWS)O rdered By: Fatuma Mckeon on 05-01-2021 Moderate calcaneal spurring Clctin Phone: EXAMINATION: THREE XRAY VIEWS OF THE LEFT ANKLE 05/01/2021 11:12 am COMPARISON: None. HISTORY: ORDERING SYSTEM PROVIDED HISTORY: Seropositive rheumatoid arthritis (HCC) FINDINGS: There is moderate spurring of the superior aspect of the os calcis. The bones and joints are otherwise unremarkable without definite effusion, acute fracture, dislocation radiopaque foreign body or bony destructive lesion Clctin Phone: Luther, pn Incoming Radiant Results From Yantra/Drop Messages - 05/01/2021 11:21 AM EDT EXAMINATION: THREE [...] bony destructive lesion IMPRESSION: Moderate calcaneal spurring [facility] [employer] Work Phone: XR ANKLE RIGHT (MIN 3 [...] Michael Caceres MD 05/01/21 Final result Normal [facility] XR FOOT LEFT (2 VIEWS)on XR FOOT [...] Clarissa Gomez MD 05/01/21 Final result Normal [facility] XR FOOT LEFT (2 VIEWS)Ordere d By: Fatuma Mckeon on 05-01-2021 Mild degenerative changes There are no plain radiographic findings to suggest an active synovial process of bone as rheumatoid arthritis [email or web address] Phone: EXAMINATION: TWO XRAY VIEWS OF THE [...] radiopaque foreign body or bony destructive lesion [email or web address] Phone: Luther, pn Incoming Radiant Results From Yantra/Drop Messages - 05/01/2021 11:29 AM EDT EXAMINATION: TWO [...] synovial process of bone as rheumatoid arthritis [email or web address] Phone: [email or web address] Phone: XR FOOT RIGHT (2 VIEWS)on XR [...] Michael Caceres MD 05/01/21 Final result Normal [facility] XR HAND LEFT (2 VIEWS)on XR HAND [...] Clarissa Gomez MD 05/01/21 Final result Normal [facility] XR HAND RIGHT (2 VIEWS)on XR HAND [...] Clarissa Gomez MD 05/01/21 Final result Normal [facility] XR HAND RIGHT (2 VIEWS)Order ed By: Fatuma Mckeon on 05-01-2021 Unremarkable two-view right hand series. There are no definite plain radiographic findings to suggest an active synovial process of bone as rheumatoid arthritis Clctin Phone: EXAMINATION: TWO XRAY VIEWS OF THE RIGHT HAND 05/01/2021 11:12 am COMPARISON: None. HISTORY: ORDERING SYSTEM PROVIDED HISTORY: Seropositive rheumatoid arthritis (HCC) FINDINGS: The bones and joints are unremarkable without definite fracture, dislocation, significant degenerative/erosi ve change, radiopaque foreign body, abnormal soft tissue calcification or bony destructive lesion Clctin Phone: Luther, [facility] Incoming Radiant Results From Yantra/Drop Messages - 05/01/2021 11:24 AM EDT EXAMINATION: TWO [...] synovial process of bone as rheumatoid arthritis Clctin Phone: Clctin Phone: XR WRIST LEFT (2 VIEWS)on XR [...] Clarissa Gomez MD 05/01/21 Final result Normal [facility] XR WRIST RIGHT (2 VIEWS)on 0 05-01-2021 [...] Clarissa Gomez MD 05/01/21 Final result Normal [facility] XR WRIST RIGHT (2 VIEWS)Orde red By: Fatuma Mckeon on 05-01-2021 Unremarkable two-view right wrist series Clctin Phone: EXAMINATION: 2 XRAY VIEWS OF THE RIGHT WRIST; 05/01/2021 11:11 am COMPARISON: None. HISTORY: ORDERING SYSTEM PROVIDED HISTORY: Seropositive rheumatoid arthritis (HCC) FINDINGS: The bones and joints are unremarkable without definite fracture, dislocation, significant degenerative/erosi ve change, radiopaque foreign body or bony destructive lesion Clctin Phone: Luther, [facility] Incoming Radiant Results From Yantra/Drop Messages - 05/01/2021 11:23 AM EDT EXAMINATION: 2 XRAY VIEWS OF THE RIGHT WRIST; 05/01/2021 11:11 am COMPARISON: None. HISTORY: ORDERING SYSTEM PROVIDED HISTORY: Seropositive rheumatoid arthritis (HCC) FINDINGS: The bones and joints are unremarkable without definite fracture, dislocation, significant degenerative/erosi ve change, radiopaque foreign body or bony destructive lesion IMPRESSION: Unremarkable two-view right wrist series Clctin Phone: Clctin Phone: XR WRIST RIGHT (MIN 3 VIEWS) [...] Ebenezer Pepe MD 03/01/21 Final result Normal [facility] XR WRIST RIGHT (MIN 3 VIEWS) Ordered By: Riki Tucker on 03-01-2021 Unremarkable right wrist. Clctin Phone: EXAMINATION: 3 XRAY VIEWS OF THE [...] degenerative findings. No appreciable soft tissue abnormality. Clctin Phone: Luther, [facility] Incoming Radiant Results From Yantra/JobConvos - 03/01/2021 7:52 PM EDT EXAMINATION: 3 [...] soft tissue abnormality. IMPRESSION: Unremarkable right wrist. Clctin Phone: Clctin Phone: XR KNEE RIGHT (1-2 VIEWS)on 11-07-2020 [...] CNP - (authorizing provider) Final result Normal [facility] XR KNEE RIGHT (3 VIEWS)on Joint effusion without acute osseous abnormality. [facility] [place] EXAMINATION: THREE XRAY VIEWS OF THE RIGHT [...] effusion. The periarticular soft tissues are unremarkable. [facility] [place] Luther, Mhpn Incoming Radiant Results From Yantra/JobConvos - 09/04/2019 6:08 PM EST EXAMINATION: THREE [...] IMPRESSION: Joint effusion without acute osseous abnormality. [facility] [employer] XR HAND LEFT (MIN 3 VIEWS)on 05-12-2019 No acute osseous abnormality. [facility] [place] EXAMINATION: THREE XRAY VIEWS OF THE LEFT HAND 05/12/2019 12:22 pm COMPARISON: November 12, 2018 HISTORY: ORDERING SYSTEM PROVIDED HISTORY: pain TECHNOLOGIST PROVIDED HISTORY: pain FINDINGS: There is no evidence of acute fracture. There is normal alignment. No acute joint abnormality. No focal osseous lesion. No focal soft tissue abnormality. [facility] Luther, Mhpn Incoming Radiant Results From Saran[employer]/Pacs - 05/12/2019 12:48 PM EDT EXAMINATION: THREE XRAY VIEWS OF THE LEFT HAND 05/12/2019 12:22 pm COMPARISON: November 12, 2018 HISTORY: ORDERING SYSTEM PROVIDED HISTORY: pain TECHNOLOGIST PROVIDED HISTORY: pain FINDINGS: There is no evidence of acute fracture. There is normal alignment. No acute joint abnormality. No focal osseous lesion. No focal soft tissue abnormality. IMPRESSION: No acute osseous abnormality. [facility] MEHREEN COBB MRI BRAIN WO CONTRASTon 04-03 [...] Tiffanie Hughes MD 04/24/19 Final result Normal [facility] MRI CERVICAL SPINE WO CONTRA STon [...] Tiffanie Hughes MD 04/24/19 Final result Normal [facility] Vital Signs Date Time Vital Sign Value Performing Clinician Robson henry 09-13-2021 08:22-0500 Diastolic blood pressure 86 mm[Hg] Francis MarleyDietBetter Work Phone: [facility] 09-13-2021 08:22-0500 Systolic blood pressure 147 mm[Hg] Francis BeachroDietBetter Work Phone: [facility] 09-13-2021 08:20-0500 Body mass index (BMI) [Ratio] 37.2 kg/m2 Francis MarleyDietBetter Work Phone: [employer] 09-13-2021 08:20-0500 Body temperature 97.39 [degF] Francis BeachroPhantom Pay DO Work Phone: [employer] 09-13-2021 08:20-0500 Body weight 95.25 kg Francis BeachroDietBetter Work Phone: [employer] 09-13-2021 08:20-0500 Heart rate 85 /min Francis MarleyDietBetter Work Phone: [employer] 09-13-2021 08:20-0500 Respiratory rate 16 /min Francis MarleyDietBetter Work Phone: [facility] 09-13-2021 08:20-0500 SaO2% (BldA) [Mass fraction] 99 % Francis Pinto DO Work Phone: [employer] 03-01-2021 18:28-0400 Diastolic blood pressure 96 mm[Hg] Claricordell Bach Work Phone: [employer] Work Phone: 03-01-2021 18:28-0400 Systolic blood pressure 151 mm[Hg] Clari Tim Work Phone: [employer] Work Phone: 03-01-2021 18:26-0400 Body temperature 98.71 [degF] Clari Glasgowhmann Work Phone: [employer] Work Phone: 03-01-2021 18:26-0400 Heart rate 70 /min [employer] Work Phone: [employer] Work Phone: 03-01-2021 18:26-0400 Respiratory rate 18 /min Clari [employer] Work Phone: [employer] Work Phone: 03-01-2021 18:26-0400 SaO2% (BldA) [Mass fraction] 98 % Clari [employer] Work Phone: [employer] Work Phone: 09-06-2019 20:00-0500 Body Temperature 97.9 [degF] [facility] 09-06-2019 20:00-0500 BP Diastolic 100 mm[Hg] [facility] [place] , [place] 09-06-2019 20:00-0500 BP Systolic 154 mm[Hg] [facility] [place] 09-06-2019 20:00-0500 Pulse (Heart Rate) 89 /min [facility] [place] 09-06-2019 20:00-0500 Pulse Oximetry 97 % [facility] [place] 09-06-2019 20:00-0500 Respiratory Rate 19 /min Oscar Zuniga [facility], [place] 09-04-2019 17:38-0500 BMI (Body Mass Index) 36.49 kg/m2 David Perez [facility], [place] 09-04-2019 17:38-0500 Body Temperature 98.2 [degF] [facility] [place] 09-04-2019 17:38-0500 Body weight 93.44 kg David Perez [facility], [place] 09-04-2019 17:38-0500 BP Diastolic 94 mm[Hg] David Perez [facility], [place] 09-04-2019 17:38-0500 BP Systolic 142 mm[Hg] David Perez [facility], [place] 09-04-2019 17:38-0500 Pulse (Heart Rate) 87 /min David Carter [facility], [place] 09-04-2019 17:38-0500 Pulse Oximetry 99 % David Perez [facility], [place] 09-04-2019 17:38-0500 Respiratory Rate 14 /min David Perez [facility], [place] 05-12-2019 12:15-0400 Body Temperature 98.01 [degF] [place] 05-12-2019 12:14-0400 BP Diastolic 85 mm[Hg] [place] 05-12-2019 12:14-0400 BP Systolic 152 mm[Hg] [place] 05-12-2019 12:14-0400 Pulse (Heart Rate) 87 /min [place] 05-12-2019 12:14-0400 Pulse Oximetry 96 % [place] 05-12-2019 12:14-0400 Respiratory Rate 16 /min [place] Encounters Encounter Date Encounter Type Care Provider Facility Start: 09-27-2023 ambulatory David DIAMOND Facility :[facility] Start: 09-12-2023 End: 09-13-2023 ambulatory TIMOTHY WILL Not Available Start: 08-22-2023 ambulatory David DARA Facility:Marilu Schmidt [place] Start: 08-12-2023 ambulatory Lakshmi Ruiz [facility] Start: 07-06-2022 End: 07-07-2022 ambulatory RODRIGUEZ KAPLAN Facility:[facility] Start: 05-21-2022 End: 05-22-2022 ambulatory RODRIGUEZ KAPLAN Facility:[facility] Start: 03-19-2022 End: 03-27-2022 ambulatory RODRIGUEZ KAPLAN Facility:[facility] Start: 02-22-2022 End: 02-23-[address] RIKI RIOS Facility:[facility] Start: 09-23-2021 End: 09-23-2021 [facility] Start: 09-21-2021 End: 09-21-2021 Emergency department patient [facility] Start: 09-13-2021 End: 09-13-2021 Emergency department patient visit [place] Indira PINTO [facility] Start: 09-13-2021 End: 09-13-2021 Emergency department patient visit Francis Ribera [facility] DO Work Phone: [facility] ED Comment on above: Sprain of right foot , initial encounter (Primary Dx); Sprain of left ankle, unspecified ligament, initial encounter Start: 05-08-2021 End: 05-11-2021 ambulatory SAHIL INTERIANO [facility] Start: 05-08-2021 End: 05-10-2021 Subsequent hospital visit by physician Karoline Meek Dr Room 4 [facility] Comment on above: Microscopic hematuri a; Flank pain; Hydronephrosis with ureteral calculus Start: 05-01-2021 End: 05-04-2021 ambulatory SAHIL INTERIANO [facility] Start: 05-01-2021 End: 05-03-2021 Subsequent hospital visit by physician Karoline Meek Dr Room 2 [facility] Comment on above: Seropositive rheumat oid arthritis (HCC) Pain Start: 03-01-2021 End: 03-01-2021 Emergency department patient visit [facility] Start: 03-01-2021 End: 03-01-2021 Emergency department patient visit Clari Tim Work Phone: [facility] ED Comment on above: Strain of right wris t, initial encounter (Primary Dx) Start: 11-07-2020 End: 11-10-2020 ambulatory SHAHRZAD ZENG [facility] Start: 11-07-2020 End: 11-09-2020 Subsequent hospital visit by physician Clari [facility] Start: 09-06-2019 End: 09-06-2019 Emergency department patient visit Oscar Zuniga Work Phone: [facility] ED Comment on above: Sprain of collateral ligament of right knee, initial encounter (Primary Dx) Start: 09-04-2019 End: 09-04-2019 Emergency department patient visit David Reynoso Perez [facility] ED Comment on above: Injury of right knee , initial encounter (Primary Dx); Effusion of right knee joint Start: 05-12-2019 End: 05-12-2019 Emergency department patient visit [facility] ED Comment on above: Contusion of left coles nd including fingers, initial encounter (Primary Dx) Start: 04-20-2019 End: 04-20-2019 Emergency department patient visit JEAN HARPER [facility] Start: 07-29-2017 End: 07-30-2017 Ambulatory Nilo Hastingsen Facility:[facility] Procedures Date Procedure Procedure Detail Performing Clinician [...] Start: 04-20-2019 IP CONSULT TO NEUROLOGY JEANCANDE HARPER Plan of Treatment Date Care Activity Detail Author Start: 11-28-2027 DTaP/Tdap/Td vaccine (2 - Td or Tdap) DTaP/Tdap/Td vaccine (2 - Td or Tdap) [facility] Start: 11-28-2027 DTaP/Tdap/Td vaccine (2 - Td) DTaP/Tdap/Td vaccine (2 - Td) [place] Start: 11-25-2021 End: 11-25-2021 Patient encounter procedure 11/25/2021 Office Visit Rheumatology Fatuma Mckeon MD [address] [place] [id number] [facility] Start: 06-24-2021 End: 06-24-2021 Patient encounter procedure 06/24/2021 Office Visit Rheumatology Fatuma Mckeon MD [address] [place] [address] [id number] [facility] Start: 06-03-2021 Influenza vaccination [facility] Start: 2021 Lipid panel Lipid screen [facility] Start: 06-03-2020 Influenza vaccination Flu vaccine (# 1) [place], [place] Start: 06-03-2019 Influenza vaccination Flu vaccine (# 1) [place] Start: 2016 Diabetes screen Diabetes screen [facility] Start: 2000 DTaP/Tdap/Td vaccine (1 - Tdap) DTaP/Tdap/Td vaccine (1 - Tdap) [place], [place] Start: 1996 HIV screen HIV screen [place], [place] Start: 1996 [facility] Start: 1994 Varicella Vaccine (1 of 2 - 13+ 2-dose series) Varicella Vaccine (1 of 2 - 13+ 2-dose series) [place], [place] Start: 1993 COVID-19 Vaccine (1) COVID-19 Vaccin e (1) [facility] Start: 1992 DTaP/Tdap/Td vaccine (1 - Tdap) DTaP/Tdap/Td vaccine (1 - Tdap) [place] Start: 1982 Varicella Vaccine (1 of 2 - 2-dose childhood series) Varicella Vaccine (1 of 2 - 2-dose childhood series) [facility] Start: 1981 Hepatitis C screening Hepatitis C sc reen [facility] End: 05-12-2019 Splint application Splint application Procedures STAT One Time for 1 Occurrences starting 05/12/2019 until 05/12/2019 [place], [place] Comment on above: One Time for 1 Occur rences starting 05/12/2019 until 05/12/2019 Immunizations Immunization Date Immunization Notes Care Provider Deisy duong 07-14-2010 influenza virus vacc ine, whole virus Clari Tim [place], [place] Payers Date Payer Category Payer Medicaid [id number] 2020 Unknown [id number] 2019 Unknown [id number] 2019 Unknown [facility] [id number] xxxxxxxxx 2019-Present [address] [address] [place] [address] xxxxxxxxx [id number] 1981 Unknown [id number] [id number] 1981 Unknown [id number] [id number]3 1981 Unknown [id number] 2.16.840.1.333993.3.579.2.173 1981 Unknown [id number] 2.16.840.1.791582.3.579.2.173 1981 Unknown [id number] 2.16.840.1.991134.3.579.2.173 1981 Unknown [id number] 2.16.840.1.852161.3.579.2.173 1981 Unknown [id number] 2.16.840.1.465124.3.579.2.173 1981 Unknown [id number] 2.16840.1.506580.3.579.2.173 1981 Unknown [id number] 2.16840.1.633010.3.579.2.173 1981 Unknown [id number] 2.840.1.622751.3.579.2.173 1981 Unknown [id number] 2.16840.1.221222.3.579.2.173 1981 Unknown [id number] 2.16840.1.663029.3.579.2.173 1981 Unknown [id number] 2.16840.1.945321.3.579.2.173 1981 Unknown [id number] 2.16840.1.618529.3.579.2.173 1981 Unknown [id number] 2.16840.1.230975.3.579.2.173 1981 Unknown [id number] 2.16840.1.182377.3.579.2.173 1981 Unknown [id number] 2.16840.1.450978.3.579.2.173 1981 Unknown [id number] 2.16840.1.969643.3.579.2.173 1981 Unknown [id number] 2.16840.1.236785.3.579.2.173 1981 Unknown [id number] 2.16.840.1.219331.3.579.2.173 1981 Unknown [id number] 2.16.840.1.550499.3.579.2.593 1981 Unknown [id number] 2.16.840.1.297379.3.579.2.593 1981 Unknown [id number] 2.16.840.1.458644.3.579.2.593 1981 Unknown [id number] 2.16.840.1.267888.3.579.2.593 1981 Unknown [id number] 2.16.840.1.326460.3.579.2.1259 1981 Unknown [id number] 2.16.840.1.137439.3.579.2.1259 1981 Unknown [id number] 2.16.840.1.596351.3.579.2.727 1959 Unknown [id number] [id number].3.6 [id number] 1959 Unknown [id number] Social History Date Type Detail Facility Start: 11-08-2014 End: 09-04-2019 Tobacco smoking status UTIS Never smoker [facility] Start: 09-04-2019 End: 03-27-2021 Alcohol intake Current non-drinker of alcohol (finding) [place], [place] Start: 10-16-2017 Alcohol Comment very reare [facility] [place] Start: 1981 Sex Assigned At Not on file [place], [place] Start: 05-12-2019 Alcohol intake No Emma [place] Start: 11-08-2014 End: 09-06-2019 Tobacco use and exposure Never used [place], [place] Exposure to SARS-CoV -2 (event) Not sure [facility] Start: 03-27-2021 Alcohol Comment very rare Emma [...] his work. 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 He has low back pain 3/10. The [...] in office. CC: Chen Kaplan CNP [facility] Discharge instructions 09-13-2021 InstructionsAttachments Note Date & Type Note Facility 09-13-2021 Hospital Discharg e instructions Francis Pinto, - 09/13/2021 Return to the Emergency Department immediately if you develop worsening pain, numbness, weakness , or you have any other concerns. Please follow up with your orthopaeidc doctor in 2-3 days. Ice, elevate Use crutches The following attachments cannot be sent through Care Everywhere.Ankle Sprain (Stateless)documented in this encounter Clctin Phone: Evaluation note Note Date & Type Note Facility Evaluation note Diagnosis Strain of right wrist, initial encounter- Primary documented in this encounter Clctin Phone: Evaluation note Note Date & Type Note Facility Evaluation note Diagnosis Seropositive rheumatoid arthritis (HCC) Rheumatoid arthritis documented in this encounter Clctin Phone: Evaluation note Note Date & Type Note Facility Evaluation note Diagnosis Pain Generalized pain documented in this encounter Clctin Phone: Evaluation note Note Date & Type Note Facility Evaluation note Diagnosis Microscopic hematuria Flank pain Abdominal pain, unspecified site Hydronephrosis with ureteral calculus Calculus of ureter documented in this encounter Clctin Phone: Evaluation note Note Date & Type Note Facility Evaluation note Diagnosis Sprain of right foot, initial encounter- Primary Sprain of left ankle, unspecified ligament, initial encounter documented in this encounter Clctin Phone: Hospital Discharge instructions Attachments Note Date & Type Note Facility Hospital Discharge instructions The following attachments cannot be sent through Care Everywhere.Strain or Sprain (Stateless)documented in this encounter Clctin Phone: Summary Purpose Family History No Family History Records FoundNo Family History Records FoundNo Family History Records FoundNo Family History Records FoundNo Family History Records FoundNo Family History Records FoundNo Family History Records Found Advance Directives No Advanced Directives Records FoundDocuments on File Type Date Recorded Patient Superintendent System Operation Expl anation Advance Directives and Living Will Power of Outside Production Inspector Documents on File Type Date Recorded Patient Superintendent System Operation Expl anation ACP-Advance Directive ACP-Power of Outside Production Inspector Assessments Diagnosis Injury of right knee, initial [...] sent through Care Everywhere. * Finger: Bruises (Stateless) documented in this encounter* Attachments The following attachments cannot be sent through Care Everywhere. * Knee Sprain (Stateless) documented in this encounter Additional Source Comments (unrecognized sect ion and content) No Status Records FoundNo Status Records FoundNo Status Records FoundNo Status Records FoundNo Status Records FoundNo Status Records FoundNo Status Records Found INFORMATION SOURCE (unrecogn ized section and content) DATE CREATED AUTHOR 03/31/2018 [facility] DATE CREATED AUTHOR AUTHOR'S ORGANIZ ATION 04/26/2019 [facility] DATE CREATED AUTHOR AUTHOR'S ORGANIZ ATION 09/23/2021 [facility] DATE CREATED AUTHOR AUTHOR'S ORGANIZ ATION 02/16/2023 [facility] DATE CREATED AUTHOR AUTHOR'S ORGANIZ ATION 08/14/2023 [facility] DATE CREATED AUTHOR AUTHOR'S ORGANIZ ATION 09/18/2023 [facility] EPIC DATE CREATED AUTHOR AUTHOR'S ORGANIZ ATION 09/29/2023 [facility] Reason for Visit (unrecogniz ed section and [...] Care Teams (unrecognized sec tion and content) Proj Mgr Relationship Specialty Start Date End Date TimClari [address] [place] [address] PCP - General Nurse Practitioner 04/21/19 FOR [...] BE BASED ON THE PRIMARY CLINICAL RECORDS. [employer] provides no warranty or guarantee of the accuracy or completeness of information in this document.
--- NOTE | 2023-11-09 15:22 | P.STRESS_ITS ---
Stress Test Stress Test Allergies Allergy/AdvReac Type Severity Reaction Status Date / Time Penicillins Allergy Intermediate Verified 09/11/23 01:24 tramadol [From Ultram] Allergy Intermediate Verified 09/11/23 01:24 Requesting physician: RODRIGUEZ KAPLAN Procedure: Exercise stress test General Information: Reason for Stress Test: Chest pain Cardiac History and Risk Factors: No personal history. Mother has afib and grandmother had CABG. Resting 12 - Lead Electrocardiogram: Rate & rhythm: Normal sinus at a rate of 81. [place]: Normal T-waves/ST-segments: Inverted in II & aVF Stress Test: Protocol: Rubin protocol was followed. Exercise capacity: Good exercise capacity. Total exercise time of 7 minutes 16 seconds reached Rubin stage 3 at 3.4MPH, 14% grade, & 10.1 METs. Blood pressure: Initial: 138/90, Maximum: 206/98, Recovery: 150/92 Rate & rhythm: Patient remained in sinus rhythm during the exercise and recovery portions of the study.? The maximum heart rate was 151, which was 85% of the maximum predicted heart rate 178. ST-segments & T-waves: T-waves in III became positive and were biphasic in lateral leads V4-6 during initial recovery. Returned to baseline at end of study. Patient response/symptoms: There were no symptoms similar to the chief complaint. Interpretation: Non-diagnostic exercise stress test based on abnormal T-wave findings in the inferolateral leads during recovery. Asymptomatic of chief complaint. [place] treadmill score is 7.3, which places patient in a low risk category. Clinical correlation required.
== END 2023-11-09 07:05 | disposition home or self-care (01) ==
LOC: CARD 07:04
PROVIDERS: PCP Nurse Practitioner Family; Visit Provider Family Medicine
DX: R07.9 Chest pain, unspecified (principal)
CPT/HCPCS: 93017

== ENCOUNTER 2023-11-09 08:22 | Outpatient (OUT) | payer MEDICAID, SELFPAY ==
--- OUTSIDE RECORDS SUMMARY | 2023-11-09 08:29 | XMS_ITS | CCD ---
Author Name Unknown Address [address] [place] [address] Organization [facility] Care Team Providers Care Skin Therapist Name Role Phone Nilo Mendez Unavailable Unavailable JEAN HARPER Primary Care Unavailable KENYATTA KEN Attending Unavailable SANDOVALRI, ARTEMIO Consulting Unavailable Tim, Clari A Primary Care Provider [phone] Tim, Clari A Primary Care Provider [phone] Tim, Clari A Primary Care Provider [phone] TIM, CLARI A Primary Care Unavailable SHAHRZAD [...] Agonists (13 sources) traMADol Drug Allergy 6 [facility] Penicillins (antibiotic) (13 sources) Penicillins Drug Allergy 1 [facility] (6 sources) Penicillins; Translations: [penicillins] Propensity to adverse reactions to drug 1 [place], [place] (5 sources) traMADol Drug Allergy 6 [place] (1 source) Penicillin Drug Allergy 8 [facility] Repository (2 sources) traMADol; Translations: [Ultram] Drug Allergy [facility] Repository Medications Current Medications Medication Drug Class(es) [...] Facility Physician Referralon 023 Physician Referral [phone] [id number] Normal [facility] MRI LSPINE WO CONon 05-21-20 22 MRI [...] by: MICHAEL RAE Date: 2022-05-21 18:38 Normal [facility] XR FOREIGN BODY EYEon 2021 XR FOREIGN BODY EYE EXAMINATION: XR FOREIGN BODY EYE HISTORY: Foreign body in eye COMPARISON: No relevant comparison available. FINDINGS: ORBITS: Negative for a metallic foreign body. OTHER: Negative. IMPRESSION: 1. No metallic foreign body within the orbits. Electronically authenticated by: RIKI RIOS Date: 2022-05-21 10:36 Normal [facility] XR LSPINE MIN 4 VIEWSon 02-01 [...] by: RIKI RIOS Date: 2022-02-22 11:06 Normal [facility] CBC with Diffon 09-23-2021 Abs. Basophil 0.02 k/uL Normal 0.0-0.2 [facility] Comment on above: Performed By: #### C ELOY LOPEZ, IPF ####[address] [place] [address] Lab Director: Michael Meyer MD Abs.Imm.Granulocyte 0.02 k/uL Normal 0.00-0.30 [facility] Comment on above: Performed By: #### C ELOY LOPEZ, IPF ####[address] [place] [address] lab Director: Michael Meyer MD Abs.Neutrophil (Seg) 1.28 k/uL Low 1.50-8.[address] [facility] Comment on above: Performed By: #### C ELOY LOPEZ, IPF ####[address] [place] [address] lab Director: Michael Meyer MD Basophils/100 WBC (Bld) 1 % Normal 0-2 M [facility] Comment on above: Performed By: #### C DP, CP, IPF ####[address] , [place] 134[address]83 Lab Director: Michael Meyer MD Eosinophils (Bld) [#/Vol] 0.00 10*3/uL Normal 0.00-0.44 [facility] Comment on above: Performed By: #### C DP, CP, IPF ####[address] , [place] 8[address] Lab Director: Michael Meyer MD Eosinophils/100 WBC (Bld) 0 % Low 1-4 [facility] Comment on above: Performed By: #### C DP, CP, IPF ####[address] , [facility]83 Lab Director: Michael Meyer MD Immature granulocytes/100 WBC (Bld) 1 % High 0 [facility] Comment on above: Performed By: #### C JESSICA, CP, IPF ####[address] , [facility] Lab Director: Michael Meyer MD Lymphocytes (Bld) [#/Vol] 0.73 10*3/uL Low 1.10-3.70 [facility] Comment on above: Performed By: #### C DP, CP, IPF ####[address] [place] [address] Lab Director: Michael Meyer MD Lymphocytes/100 WBC (Bld) 33 % Normal 24-43 [facility] Comment on above: Performed By: #### C DP, CP, IPF ####[address] , [place] 06[address] Lab Director: Michael Meyer MD Monocytes (Bld) [#/Vol] 0.15 10*3/uL Normal 0.10-1.20 [facility] Comment on above: Performed By: #### C DP, CP, IPF ####[address] , [place] 8[address] Lab Director: Michael Meyer MD Monocytes/100 WBC (Bld) 7 % Normal 3-12 M [facility] Comment on above: Performed By: #### C DP, CP, IPF ####[address] , [facility] Lab Director: Michael Meyer MD Morphology Fernando (Bld) [Interp] Platelet scan shows Normal Platelets Normal [facility] Comment on above: Performed By: #### C DP, CP, IPF ####[address] , [facility] Lab Director: Michael Meyer MD Neutrophil (Seg) 58 % Normal 36-65 [facility] Comment on above: Performed By: #### C DP, CP, IPF ####[address] , [facility] Lab Director: Michael Meyer MD Erythrocyte distribution width (RBC) [Ratio] 11.2 % Low 11.8-14.4 [facility] Comment on above: Performed By: #### C DP, CP, IPF ####[address] , [place] [address]83 Lab Director: Michael Meyer MD Hematocrit (Bld) [Volume fraction] 46.3 % Normal 40.7-50.3 [facility] Comment on above: Performed By: #### C DP, CP, IPF ####[address] [place] [address] Lab Director: Michael Meyer MD Hemoglobin (Bld) [Mass/Vol] 15.6 g/dL Normal 13.0-17.0 [facility] Comment on above: Performed By: #### C DP, CP, IPF ####[address] , [place] 258[address] Lab Director: Michael Meyer MD MCH (RBC) [Entitic mass] 28.5 pg Normal 25.2-33.5 [facility] Comment on above: Performed By: #### C DP, CP, IPF ####[address] , [place] [address] lab Director: Michael Meyer MD MCHC (RBC) [Mass/Vol] 33.7 g/dL Normal 28.4-34.8 [facility] Comment on above: Performed By: #### C DP, CP, IPF ####[address] [place] [address] Eea Director: Michael Meyer MD MCV (RBC) [Entitic vol] 84.6 fL Normal 82.6-102.9 M [facility] Comment on above: Performed By: #### C DP, CP, IPF ####[address] [place] [address] Sdr Director: Michael Meyer MD NRBC Automated 0.0 per 100 WBC Normal 0.0 [facility] Comment on above: Performed By: #### C DP, CP, IPF ####[address] , [place] 9047[address] lab Director: Michael Meyer MD Platelet Count See Reflexed IPF Result Normal 138-453 [facility] Comment on above: Performed By: #### C DP, CP, IPF ####[address] , [place] 4158[address] Lab Director: Michael Meyer MD RBC (Bld) [#/Vol] 5.47 10*6/uL Normal 4.21-5.77 [facility] Comment on above: Performed By: #### C DP, CP, IPF ####[address] , [place] 9[address]83 Lab Director: Michael Meyer MD WBC (Bld) [#/Vol] 2.2 10*3/uL Low 3.5-11.3 [facility] Comment on above: Performed By: #### C DP, CP, IPF ####[facility] [place] [address] Lab Director: Michael Meyer MD Auto Diff Performed NOT REPORTED Normal [facility] Comment on above: Performed By: #### C DP, CP, IPF ####[address] , [place] [phone] Director: Michael Meyer MD MPV NOT REPORTED Normal 8.1-13.5 [facility] Comment on above: Performed By: #### C DP, CP, IPF ####[address] [place] [address] Lab Director: Michael Meyer MD Platelet Comment NOT REPORTED Normal [facility] Comment on above: Performed By: #### C DP, CP, IPF ####[address] [place] [address] Lab Director: Michael Meyer MD RBC morphology finding Nom (Bld) NOT REPORTED Normal [facility] Comment on above: Performed By: #### C DP, CP, IPF ####[address] , [place] [phone] Director: Michael Meyer MD WBC Morphology NOT REPORTED Normal [facility] Comment on above: Performed By: #### C DP, CP, IPF ####[address] [place] [address] Lab Director: Michael Meyer MD Comp Metabolic Profon 2020 (cont.) Normal [facility] Comment on above: Result Comment: Aver age GFR for 40-49 years old: 99 mL/min/1.73sq m Chronic Kidney Disease: <60 mL/min/1.73sq m Kidney failure: <15 mL/min/1.73sq m eGFR calculated using average adult body mass. Additional eGFR calculator available at: http://www.WorldViz/multiple_crcl_2012.htm Performed By: #### C DP, CP, IPF ####[address] [place] [address] Lab Director: Michael Meyer MD Albumin [Mass/Vol] 4.1 g/dL Normal 3.5-5.2 [facility] Comment on above: Performed By: #### C DP, CP, IPF ####[address] [place] [address] Lab Director: Michael Meyer MD Albumin/Glob Ratio 1.1 Normal 1.0-2.5 [facility] Comment on above: Performed By: #### C DP, CP, IPF ####[address] [place] [address] Lab Director: Michael Meyer MD Alkaline Phos 87 U/L Normal 40-129 [facility] Comment on above: Performed By: #### C DP, CP, IPF ####[address] [place] [address] Lab Director: Michael Meyer MD ALT [Catalytic activity/Vol] 65 U/L High 5-41 [facility] Comment on above: Performed By: #### C DP, CP, IPF ####[address] [place] [address] Lab Director: Michael Meyer MD Anion gap [Moles/Vol] 13 mmol/L Normal 9-17 [facility] Comment on above: Performed By: #### C DP, CP, IPF ####[address] [place] [address] Lab Director: Michael Meyer MD AST [Catalytic activity/Vol] 68 U/L High <40 [facility] Comment on above: Performed By: #### C DP, CP, IPF ####[address] , [place] 1634[address] Lab Director: Michael Meyer MD Bilirubin [Mass/Vol] 0.52 mg/dL Normal 0.3-1.[address] [facility] Comment on above: Performed By: #### C DP, CP, IPF ####[address] , [place] 496[address]83 lab Director: Michael Meyer MD BUN/CRE Ratio 8 Low 9-20 [facility] Comment on above: Performed By: #### C DP, CP, IPF ####[address] , [place] 1178883 lab Director: Michael Meyer MD Calcium [Mass/Vol] 8.8 mg/dL Normal 8.6-10.4 [facility] Comment on above: Performed By: #### C DP, CP, IPF ####[address] , [place] 8457[address] Lab Director: Michael Meyer MD Chloride [Moles/Vol] 100 mmol/L Normal 98-[address] [facility] Comment on above: Performed By: #### C DP, CP, IPF ####[address] [place] [address] Lab Director: Michael Meyer MD CO2 [Moles/Vol] 23 mmol/L Normal 20-31 [facility] Comment on above: Performed By: #### C DP, CP, IPF ####[address] , [place] [address] lab Director: Michael Meyer MD Creatinine [Mass/Vol] 1.55 mg/dL High 0.70-1.20 [facility] Comment on above: Performed By: #### C DP, CP, IPF ####[address] [place] [address] Lab Director: Michael Meyer MD GFR, Amer >60 Normal >60 [facility] Comment on above: Performed By: #### C DP, CP, IPF ####[address] [place] [address] Lab Director: Michael Meyer MD GFR,non Amer 50 mL/min Low >[address] [facility] Comment on above: Performed By: #### C DP, CP, IPF ####[address] [place] [address] Lab Director: Michael Meyer MD Glucose [Mass/Vol] 94 mg/dL Normal 70-99 [facility] Comment on above: Performed By: #### C DP, CP, IPF ####[address] [place] [address] Lab Director: Michael Meyer MD Potassium [Moles/Vol] 3.9 mmol/L Normal 3.7-5.3 [facility] Comment on above: Performed By: #### C DP, CP, IPF ####[address] [place] [address] Lab Director: Michael Meyer MD Protein [Mass/Vol] 7.9 g/dL Normal 6.4-8.3 [facility] Comment on above: Performed By: #### C DP, CP, IPF ####[address] [place] [address] Lab Director: Michael Meyer MD Sodium [Moles/Vol] 136 mmol/L Normal 135-144 [facility] Comment on above: Performed By: #### C DP, CP, IPF ####[address] [place] [address] Lab Director: Michael Meyer MD Staging: Normal [facility] Comment on above: Result Comment: Stag e 1: Some kidney damage normal GFR Stage 2: Mild kidney damage GFR 60-89 Stage 3: Moderate kidney damage GFR 30-59 Stage 4: Severe kidney damage GFR 15-29 Stage 5: Severe kidney damage GFR <15 ESRD - chronic treatment by dialysis or transplant Performed By: #### C DP, CP, IPF ####[address] , [place] 7[address] [facility] Director: Michael Meyer MD Urea nitrogen [Mass/Vol] 13 mg/dL Normal 6-20 [facility] Comment on above: Performed By: #### C JESSICA, CP, IPF ####[address] [place] [address] Lab Director: Michael Meyer MD Lactic Acidon 09-23-2021 Lactate [Moles/Vol] 0.9 mmol/L Normal 0.5-2.2 [facility] Comment on above: Performed By: #### L ACTIC ####[address] [place] [address] [facility] Director: Michael Meyer MD Lactic Acid,Whole Bl NOT REPORTED Normal 0.7-2.1 [facility] Comment on above: Performed By: #### L ACTIC ####[address] [place] [address] [facility] Director: Michael Meyer MD PLT, Immature Fract.on 09-23 Platelet, Fluoresc. 42 k/uL Low 138-453 [facility] Comment on above: Performed By: #### C DP, CP, IPF #### [address] [place] [address] [employer]ch[employer]: Michael Meyer MD PLT, Immature Fract. 1.2 % Normal 1.1-10.[address] [facility] Comment on above: Performed By: #### C DP, CP, IPF #### [address] [place], [place] [address] Merchandiser Seasonal: Michael Meyer MD XR CHEST (SINGLE VIEW [...] Julio C Calderón 09/22/21 Final result Normal [facility] Resp Viral Panelon 1 Adenovirus Not detected Normal [facility] Comment on above: Performed By: #### R SILVER BRAZER ####[address] [address] Lab Director: Juan R Tang[address] [place] [id number] Lab Director: Michael Meyer MD Bordet.parapertussis Not detected Normal [facility] Comment on above: Performed By: #### R SILVER BRAZER ####[place] [place] [place] [address] Lab Director: Juan R Tang[address] [place] [id number] Lab Director: Michael Meyer MD Bordetella pertussis Not detected Normal [facility] Comment on above: Performed By: #### R SILVER BRAZER ####[address] [place] [address] Lab Director: Juan R Tang[address] [place] [address] Lab Director: Michael Meyer MD Chlamyd.pneumoniae Not detected Normal [facility] Comment on above: Performed By: #### R SILVER BRAZER ####[facility] [address] [place] [address] Lab Director: Juan R [facility] [place] [address] Lab Director: Michael Meyer MD Coronavirus 229E Not detected [facility] Comment on above: Performed By: #### R SILVER BRAZER ####[address] [address] Lab Director: Juan R Tang[address] [place] [phone] Director: Michael Meyer MD Coronavirus HKU1 Not detected [facility] Comment on above: Performed By: #### R SILVER BRAZER ####[address] [address] Lab Director: Juan R Tang[address] [place] [phone] Director: Michael Meyer MD Coronavirus NL63 Not detected [facility] Comment on above: Performed By: #### R SILVER BRAZER ####[address] [address] Lab Director: Juan R Tang[address] [place] [address] Lab Director: Michael Meyer MD Coronavirus OC43 Not detected [facility] Comment on above: Performed By: #### R SILVER BRAZER ####[address] [place] [address] Lab Director: Juan R [address] [place] [address] Lab Director: Michael Meyer MD Human Metapneumo Not detected [facility] Comment on above: Performed By: #### R SILVER BRAZER ####[facility] [address] [place], [place] [phone] Director: Juan R [address] [place] [address] Lab Director: Michael Meyer MD Influenza A Not detected Normal [facility] Comment on above: Performed By: #### R SILVER BRAZER ####[facility] [address] [place] [address] Lab Director: Juan R Tang[address] [place] [address] Lab Director: Michael Meyer MD Influenza B Not detected [facility] Comment on above: Performed By: #### R SILVER BRAZER ####[facility] [address] [place], [place] [phone] Director: Juan R Tang[address] [place] [address] Lab Director: Michael Meyer MD Mycoplas.pneumoniae Not detected Normal [facility] Comment on above: Result Comment: Perf ormed by multiplexed nucleic acid assay. Performed By: #### R SILVER BRAZER ####[facility] [address] [place], [place] [phone] Director: Juan R Tang[address] [place] [address] Lab Director: Michael Meyer MD Parainfluenza 1 Not detected Normal [facility] Comment on above: Performed By: #### R SILVER BRAZER ####[facility] [address] [place], [place] [phone] Director: Juan R Tang[address] [place] [address] Lab Director: Michael Meyer MD Parainfluenza 2 Not detected Normal [facility] Comment on above: Performed By: #### R SILVER BRAZER ####[facility] [address] [place], [place] [phone] Director: Juan R Tang[address] [place] [address] Lab Director: Michael Meyer MD Parainfluenza 3 Not detected Normal [facility] Comment on above: Performed By: #### R SILVER BRAZER ####[facility] [address] [place], [place] [phone] Director: Juan R Tang[address] [place] [address] Lab Director: Michael Meyer MD Parainfluenza 4 Not detected Normal [facility] Comment on above: Performed By: #### R SILVER BRAZER ####[facility] [address] [place] [address] Lab Director: Juan R Tang[address] [place] [address] Lab Director: Michael Meyer MD Resp Syncytial Virus Not detected Normal [facility] Comment on above: Performed By: #### R SILVER BRAZER ####[facility] [address] [place], [place] [phone] Director: Juan R Tang[address] [place] [address] Lab Director: Michael Meyer MD Rhino/Enterovirus Not detected Normal [facility] Comment on above: Performed By: #### R SILVER BRAZER ####[facility] [address] [place] [address] Lab Director: Juan R Tang[address] [place] [address] Lab Director: Michael Meyer MD SARS-CoV-2 (COVID-19) RNA LYNDON+probe Ql (Unsp spec) Detected Abnormal [facility] Comment on above: Result Comment: Resu lts reported to the appropriate Health Department Performed By: #### R SILVER BRAZER ####[facility] [address] [place], [place] [phone] Director: Juan R Tang[address] [place] [address] Lab Director: Michael Meyer MD Resp Viral Panelon 1 Source: .NASOPHARYNGEAL SWAB Normal [facility] Comment on above: Performed By: #### R SILVER BRAZER ####[facility] [address] [place], [place] [phone] Director: Juan R [facility] [place] [address] Lab Director: Michael Meyer MD Influenza A H1 NOT REPORTED Normal [facility] Comment on above: Performed By: #### R SILVER BRAZER ####[facility] [address] [place], [place] [phone] Director: Juan R Tang[address] [place] [address] Lab Director: Michael Meyer MD Influenza A H1-2009 NOT REPORTED Normal [facility] Comment on above: Performed By: #### R SILVER BRAZER ####[facility] [address] [place] [address] Lab Director: Juan R Tang[address] [place] [address] Lab Director: Michael Meyer MD Influenza A H3 NOT REPORTED Normal [facility] Comment on above: Performed By: #### R SILVER BRAZER ####[facility] [address] [place], [place] [phone] Director: Juan R Tang[address] [place] [address] Lab Director: Michael Meyer MD No Panel Informationon 09-13 No acute findings. [facility] EXAMINATION: THREE XRAY VIEWS OF THE RIGHT ANKLE; THREE XRAY VIEWS OF THE LEFT FOOT 09/13/2021 9:16 am COMPARISON: None. HISTORY: ORDERING SYSTEM PROVIDED HISTORY: Pain TECHNOLOGIST PROVIDED HISTORY: Pain FINDINGS: No acute fracture demonstrated. 2 threaded screws noted medial malleolus from repair prior injury. Alignment anatomic. Small plantar and dorsal calcaneal spurs present. Qzgs-sd-xeahkmab degenerative change primarily midfoot. Overall alignment anatomic. Soft tissues unremarkable. [facility] Jeronimo Art DO - 09/13/2021 EXAMINATION: THREE XRAY VIEWS OF THE RIGHT ANKLE; THREE XRAY VIEWS OF THE LEFT FOOT 09/13/2021 9:16 am COMPARISON: None. HISTORY: ORDERING SYSTEM PROVIDED HISTORY: Pain TECHNOLOGIST PROVIDED HISTORY: Pain FINDINGS: No acute fracture demonstrated. 2 threaded screws noted medial malleolus from repair prior injury. Alignment anatomic. Small plantar and dorsal calcaneal spurs present. Lztq-ej-iwvlwras degenerative change primarily midfoot. Overall alignment anatomic. Soft tissues unremarkable. IMPRESSION: No acute findings. [employer] Work Phone: [facility] Work Phone: No acute findings. [facility] EXAMINATION: THREE XRAY VIEWS OF THE RIGHT FOOT; THREE XRAY VIEWS OF THE LEFT ANKLE 09/13/2021 9:14 am COMPARISON: None. HISTORY: ORDERING SYSTEM PROVIDED HISTORY: pain TECHNOLOGIST PROVIDED HISTORY: pain FINDINGS: No acute fracture demonstrated. Alignment is anatomic. 2 threaded screws noted within the medial malleolus. Kcrw-re-pcqiketm degenerative change primarily midfoot. Small plantar and dorsal calcaneal spurs present. Soft tissues unremarkable. [facility] Jeronimo Art DO - 09/13/2021 EXAMINATION: THREE XRAY VIEWS OF THE RIGHT FOOT; THREE XRAY VIEWS OF THE LEFT ANKLE 09/13/2021 9:14 am COMPARISON: None. HISTORY: ORDERING SYSTEM PROVIDED HISTORY: pain TECHNOLOGIST PROVIDED HISTORY: pain FINDINGS: No acute fracture demonstrated. Alignment is anatomic. 2 threaded screws noted within the medial malleolus. Omre-ve-tkaqlnfn degenerative change primarily midfoot. Small plantar and dorsal calcaneal spurs present. Soft tissues unremarkable. IMPRESSION: No acute findings. [employer] Phone: No Panel InformationOrdered By: Jeronimo Art on 09-13-2021 [employer] Phone: XR ANKLE LEFT (MIN 3 VIEWS)o n 09-13-2021 XR ANKLE LEFT (MIN 3 VIEWS) EXAMINATION: THREE XRAY VIEWS OF THE RIGHT FOOT; THREE XRAY VIEWS OF THE LEFT ANKLE 09/13/2021 9:14 am COMPARISON: None. HISTORY: ORDERING SYSTEM PROVIDED HISTORY: pain TECHNOLOGIST PROVIDED HISTORY: pain FINDINGS: No acute fracture demonstrated. Alignment is anatomic. 2 threaded screws noted within the medial malleolus. Hfjv-xs-ifqvpxke degenerative change primarily midfoot. Small plantar and dorsal calcaneal spurs present. Soft tissues unremarkable. IMPRESSION: No acute findings. Interpreted by: Jeronimo Art DO Signed by: Jeronimo Art DO 09/13/21 Final result Normal [facility] Radiology Study observation (narrative) [employer] [place] Phone: XR ANKLE RIGHT (MIN 3 VIEWS) [...] Small plantar and dorsal calcaneal spurs present. Pkir-hm-ayobeztn degenerative change primarily midfoot. Overall alignment anatomic. Soft tissues unremarkable. IMPRESSION: No acute findings. Interpreted by: Jeronimo Art DO Signed by: Jeronimo Art DO 09/13/21 Final result Normal [facility] Radiology Study observation (narrative) [employer] Phone: XR FOOT LEFT (MIN 3 VIEWS)on [...] Small plantar and dorsal calcaneal spurs present. Ghnc-hv-fiaqcmjx degenerative change primarily midfoot. Overall alignment anatomic. Soft tissues unremarkable. IMPRESSION: No acute findings. Interpreted by: Jeronimo Art DO Signed by: Jeronimo Art DO 09/13/21 Final result Normal [facility] Radiology Study observation (narrative) Emma peralta Work [...] threaded screws noted within the medial malleolus. Ngyd-dk-nygrjeat degenerative change primarily midfoot. Small plantar and dorsal calcaneal spurs present. Soft tissues unremarkable. IMPRESSION: No acute findings. Interpreted by: Jeronimo Art DO Signed by: Jeronimo Art DO 09/13/21 Final result Normal [facility] Radiology Study observation (narrative) Emma peralta Work [...] Kerri Scott MD 05/08/21 Final result Normal [facility] XR ABDOMEN (KUB) (SINGLE AP VIEW)Ordered By: Sahil Interiano on 05-08-2021 Nonobstructive bowel gas pattern. No radiodensities diagnostic of nephroliths. [employer] Phone: EXAMINATION: ONE SUPINE XRAY VIEW(S) OF THE ABDOMEN 05/08/2021 10:35 am COMPARISON: 01 May 2021 HISTORY: ORDERING SYSTEM PROVIDED HISTORY: Microscopic hematuria FINDINGS: The bowel gas pattern is non obstructive. No organomegaly, free air or abnormal calcifications are noted. Mild levo scoliotic curvature is present. FOODSCR[employer]GE Phone: Luther, Mhpn Incoming Radiant Results From [employer] - 05/08/2021 2:06 PM EDT EXAMINATION: ONE SUPINE XRAY VIEW(S) OF THE ABDOMEN 05/08/2021 10:35 am COMPARISON: 01 May 2021 HISTORY: ORDERING SYSTEM PROVIDED HISTORY: Microscopic hematuria FINDINGS: The bowel gas pattern is non obstructive. No organomegaly, free air or abnormal calcifications are noted. Mild levo scoliotic curvature is present. IMPRESSION: Nonobstructive bowel gas pattern. No radiodensities diagnostic of nephroliths. FOOD[employer]GE Phone: FO[employer]GE Phone: No Panel InformationOrdered By: Fatuma Mckeon on 05-01-2021 1. No acute osseous abnormality of the right ankle. Posttraumatic and postsurgical changes as above. Mild tibiotalar joint osteoarthritis. 2. Acute osseous abnormality of the right foot. Chronic appearing well-defined erosion or subchondral cyst at the base of the 3rd metatarsal without associated joint space loss. This is a nonspecific finding. [employer]GE Phone: EXAMINATION: THREE XRAY VIEWS OF THE [...] base of the 3rd metatarsal is nonspecific. FOOD[employer]GE Phone: Luther, pn Incoming Radiant Results From [employer] - 05/01/2021 5:46 PM EDT EXAMINATION: THREE [...] space loss. This is a nonspecific finding. [employer] Phone: [employer] Phone: Unremarkable left wrist/left hand series. There are no plain radiographic findings to suggest an active synovial process of bone as rheumatoid arthritis [employer] Phone: EXAMINATION: 2 XRAY VIEWS OF THE LEFT WRIST; TWO XRAY VIEWS OF THE LEFT HAND 05/01/2021 11:10 am COMPARISON: None. HISTORY: ORDERING SYSTEM PROVIDED HISTORY: Seropositive rheumatoid arthritis (HCC) FINDINGS: The bones and joints are unremarkable without definite fracture, dislocation, significant degenerative/erosi ve change, radiopaque foreign body, abnormal soft tissue calcification or bony destructive lesion [employer] Phone: Luther, pn Incoming Radiant Results From [employer] - 05/01/2021 11:26 AM EDT EXAMINATION: 2 [...] synovial process of bone as rheumatoid arthritis [employer] Phone: [employer]GE Phone: XR ABDOMEN (KUB) (SINGLE AP VIEW)on [...] Linda Albarran MD 05/01/21 Final result Normal [facility] XR ABDOMEN (KUB) (SINGLE AP VIEW)Ordered By: Sahil Interiano on 05-01-2021 No significant radiographic abnormality in the abdomen. [employer] Phone: EXAMINATION: ONE SUPINE XRAY VIEW(S) OF THE ABDOMEN 05/01/2021 10:51 am COMPARISON: None. HISTORY: ORDERING SYSTEM PROVIDED HISTORY: Pain FINDINGS: Nonobstructive bowel gas pattern. No abnormal calcifications overlying the gallbladder urinary tract. No mass effect. Osseous structures grossly intact. FOODS[employer]GE Phone: Luther, pn Incoming Radiant Results From [employer] - 05/01/2021 11:21 AM EDT EXAMINATION: ONE SUPINE XRAY VIEW(S) OF THE ABDOMEN 05/01/2021 10:51 am COMPARISON: None. HISTORY: ORDERING SYSTEM PROVIDED HISTORY: Pain FINDINGS: Nonobstructive bowel gas pattern. No abnormal calcifications overlying the gallbladder urinary tract. No mass effect. Osseous structures grossly intact. IMPRESSION: No significant radiographic abnormality in the abdomen. FO[employer] Phone: FO[employer] Phone: XR ANKLE LEFT (MIN 3 VIEWS)o [...] Clarissa Gomez MD 05/01/21 Final result Normal [facility] XR ANKLE LEFT (MIN 3 VIEWS)O rdered By: Fatuma Mckeon on 05-01-2021 Moderate calcaneal spurring [employer] Phone: EXAMINATION: THREE XRAY VIEWS OF THE LEFT ANKLE 05/01/2021 11:12 am COMPARISON: None. HISTORY: ORDERING SYSTEM PROVIDED HISTORY: Seropositive rheumatoid arthritis (HCC) FINDINGS: There is moderate spurring of the superior aspect of the os calcis. The bones and joints are otherwise unremarkable without definite effusion, acute fracture, dislocation radiopaque foreign body or bony destructive lesion FO[employer]SCR[employer]GE Phone: Luther, pn Incoming Radiant Results From [employer] - 05/01/2021 11:21 AM EDT EXAMINATION: THREE [...] bony destructive lesion IMPRESSION: Moderate calcaneal spurring [facility] Work [facility]: [facility] [place] Work Phone: XR ANKLE RIGHT (MIN 3 [...] Michael Caceres MD 05/01/21 Final result Normal [facility] XR FOOT LEFT (2 VIEWS)on XR FOOT [...] Clarissa Gomez MD 05/01/21 Final result Normal [facility] XR FOOT LEFT (2 VIEWS)Ordere d By: Fatuma Mckeon on 05-01-2021 Mild degenerative changes There are no plain radiographic findings to suggest an active synovial process of bone as rheumatoid arthritis [facility] Phone: EXAMINATION: TWO XRAY VIEWS OF THE [...] radiopaque foreign body or bony destructive lesion [facility] Phone: Luther, pn Incoming Radiant Results From [employer] - 05/01/2021 11:29 AM EDT EXAMINATION: TWO [...] synovial process of bone as rheumatoid arthritis [facility] Phone: [facility] Phone: XR FOOT RIGHT (2 VIEWS)on XR [...] Michael Caceres MD 05/01/21 Final result Normal [facility] XR HAND LEFT (2 VIEWS)on XR HAND [...] Clarissa Gomez MD 05/01/21 Final result Normal [facility] XR HAND RIGHT (2 VIEWS)on XR HAND [...] Clarissa Gomez MD 05/01/21 Final result Normal [facility] XR HAND RIGHT (2 VIEWS)Order ed By: Fatuma Mckeon on 05-01-2021 Unremarkable two-view right hand series. There are no definite plain radiographic findings to suggest an active synovial process of bone as rheumatoid arthritis [employer] Phone: EXAMINATION: TWO XRAY VIEWS OF THE RIGHT HAND 05/01/2021 11:12 am COMPARISON: None. HISTORY: ORDERING SYSTEM PROVIDED HISTORY: Seropositive rheumatoid arthritis (HCC) FINDINGS: The bones and joints are unremarkable without definite fracture, dislocation, significant degenerative/erosi ve change, radiopaque foreign body, abnormal soft tissue calcification or bony destructive lesion [employer]GE Phone: Luther, [facility] Incoming Radiant Results From [employer] - 05/01/2021 11:24 AM EDT EXAMINATION: TWO [...] synovial process of bone as rheumatoid arthritis [employer] Phone: FO[employer]GE Phone: XR WRIST LEFT (2 VIEWS)on XR [...] Clarissa Gomez MD 05/01/21 Final result Normal [facility] XR WRIST RIGHT (2 VIEWS)on 0 05-01-2021 [...] Clarissa Gomez MD 05/01/21 Final result Normal [facility] XR WRIST RIGHT (2 VIEWS)Orde red By: Fatuma Mckeon on 05-01-2021 Unremarkable two-view right wrist series [employer] Phone: EXAMINATION: 2 XRAY VIEWS OF THE RIGHT WRIST; 05/01/2021 11:11 am COMPARISON: None. HISTORY: ORDERING SYSTEM PROVIDED HISTORY: Seropositive rheumatoid arthritis (HCC) FINDINGS: The bones and joints are unremarkable without definite fracture, dislocation, significant degenerative/erosi ve change, radiopaque foreign body or bony destructive lesion [employer] Phone: Luther, [facility] Incoming Radiant Results From [employer] - 05/01/2021 11:23 AM EDT EXAMINATION: 2 XRAY VIEWS OF THE RIGHT WRIST; 05/01/2021 11:11 am COMPARISON: None. HISTORY: ORDERING SYSTEM PROVIDED HISTORY: Seropositive rheumatoid arthritis (HCC) FINDINGS: The bones and joints are unremarkable without definite fracture, dislocation, significant degenerative/erosi ve change, radiopaque foreign body or bony destructive lesion IMPRESSION: Unremarkable two-view right wrist series FO[employer]GE Phone: FO[employer]GE Phone: XR WRIST RIGHT (MIN 3 VIEWS) [...] Ebenezer Pepe MD 03/01/21 Final result Normal [facility] XR WRIST RIGHT (MIN 3 VIEWS) Ordered By: Riki Tucker on 03-01-2021 Unremarkable right wrist. [employer] Phone: EXAMINATION: 3 XRAY VIEWS OF THE [...] degenerative findings. No appreciable soft tissue abnormality. FOOD[employer]GE Phone: Luther, [facility] Incoming Radiant Results From [employer] - 03/01/2021 7:52 PM EDT EXAMINATION: 3 [...] soft tissue abnormality. IMPRESSION: Unremarkable right wrist. FOODSCR[employer]GE Phone: FO[employer]GE Phone: XR KNEE RIGHT (1-2 VIEWS)on 11-07-2020 [...] CNP - (authorizing provider) Final result Normal [facility] XR KNEE RIGHT (3 VIEWS)on Joint effusion without acute osseous abnormality. [facility] [place] EXAMINATION: THREE XRAY VIEWS OF THE RIGHT [...] effusion. The periarticular soft tissues are unremarkable. [facility] [place] Luther, Mhpn Incoming Radiant Results From [employer] - 09/04/2019 6:08 PM EST EXAMINATION: THREE [...] IMPRESSION: Joint effusion without acute osseous abnormality. [facility] [employer] XR HAND LEFT (MIN 3 VIEWS)on 05-12-2019 No acute osseous abnormality. [facility] [place] EXAMINATION: THREE XRAY VIEWS OF THE LEFT HAND 05/12/2019 12:22 pm COMPARISON: November 12, 2018 HISTORY: ORDERING SYSTEM PROVIDED HISTORY: pain TECHNOLOGIST PROVIDED HISTORY: pain FINDINGS: There is no evidence of acute fracture. There is normal alignment. No acute joint abnormality. No focal osseous lesion. No focal soft tissue abnormality. [facility] [place], [facility]pn Incoming Radiant Results From [employer] - 05/12/2019 12:48 PM EDT EXAMINATION: THREE XRAY VIEWS OF THE LEFT HAND 05/12/2019 12:22 pm COMPARISON: November 12, 2018 HISTORY: ORDERING SYSTEM PROVIDED HISTORY: pain TECHNOLOGIST PROVIDED HISTORY: pain FINDINGS: There is no evidence of acute fracture. There is normal alignment. No acute joint abnormality. No focal osseous lesion. No focal soft tissue abnormality. IMPRESSION: No acute osseous abnormality. [facility] MEHREEN COBB MRI BRAIN WO CONTRASTon [...] Tiffanie Hughes MD 04/24/19 Final result Normal [facility] MRI CERVICAL SPINE WO CONTRA STon [...] Tiffanie Hughes MD 04/24/19 Final result Normal [facility] Vital Signs Date Time Vital Sign Value Performing Clinician Robson henry 09-13-2021 08:22-0500 Diastolic blood pressure 86 mm[Hg] Francis MarleySyndicatePlus Work Phone: [facility] 09-13-2021 08:22-0500 Systolic blood pressure 147 mm[Hg] Francis BeachroSyndicatePlus Work Phone: [facility] 09-13-2021 08:20-0500 Body mass index (BMI) [Ratio] 37.2 kg/m2 Francis MarleySyndicatePlus Work Phone: [employer] 09-13-2021 08:20-0500 Body temperature 97.39 [degF] Francis BeachroCittadino DO Work Phone: [employer] 09-13-2021 08:20-0500 Body weight 95.25 kg Francis BeachroSyndicatePlus Work Phone: [employer] 09-13-2021 08:20-0500 Heart rate 85 /min Francis MarleySyndicatePlus Work Phone: [employer] 09-13-2021 08:20-0500 Respiratory rate 16 /min Francis MarleySyndicatePlus Work Phone: [facility] 09-13-2021 08:20-0500 SaO2% (BldA) [Mass fraction] 99 % Francis Pinto DO Work Phone: [employer] 03-01-2021 18:28-0400 Diastolic blood pressure 96 mm[Hg] Claricordell Bach Work Phone: [employer] Work Phone: 03-01-2021 18:28-0400 Systolic blood pressure 151 mm[Hg] Clari Tim Work Phone: [employer] Work Phone: 03-01-2021 18:26-0400 Body temperature 98.71 [degF] Clari Glasgowhmann Work Phone: [employer] Work Phone: 03-01-2021 18:26-0400 Heart rate 70 /min [employer] Work Phone: [employer] Work Phone: 03-01-2021 18:26-0400 Respiratory rate 18 /min Clari klinify Work Phone: [employer] Work Phone: 03-01-2021 18:26-0400 SaO2% (BldA) [Mass fraction] 98 % Clari [employer]linify Work Phone: [employer] Work Phone: 09-06-2019 20:00-0500 Body Temperature 97.9 [degF] Oscar Savision[place] 09-06-2019 20:00-0500 BP Diastolic 100 mm[Hg] Oscar Savision [place] , [place] 09-06-2019 20:00-0500 BP Systolic 154 mm[Hg] [facility] [place] 09-06-2019 20:00-0500 Pulse (Heart Rate) 89 /min [facility] [place] 09-06-2019 20:00-0500 Pulse Oximetry 97 % Oscar [facility] [place] 09-06-2019 20:00-0500 Respiratory Rate 19 /min Oscar Zuniga [facility], [place] 09-04-2019 17:38-0500 BMI (Body Mass Index) 36.49 kg/m2 David Preez [facility], [place] 09-04-2019 17:38-0500 Body Temperature 98.2 [degF] David Perez [facility] 09-04-2019 17:38-0500 Body weight 93.44 kg David Perez [facility], [place] 09-04-2019 17:38-0500 BP Diastolic 94 mm[Hg] David Perez [facility], [place] 09-04-2019 17:38-0500 BP Systolic 142 mm[Hg] David Perez [facility], [place] 09-04-2019 17:38-0500 Pulse (Heart Rate) 87 /min David Carter [facility], [place] 09-04-2019 17:38-0500 Pulse Oximetry 99 % David Perez [facility], [place] 09-04-2019 17:38-0500 Respiratory Rate 14 /min David Perez [facility], [place] 05-12-2019 12:15-0400 Body Temperature 98.01 [degF] [place]ari [place] 05-12-2019 12:14-0400 BP Diastolic 85 mm[Hg] [place] 05-12-2019 12:14-0400 BP Systolic 152 mm[Hg] [place] 05-12-2019 12:14-0400 Pulse (Heart Rate) 87 /min [place], [place] 05-12-2019 12:14-0400 Pulse Oximetry 96 % [place] 05-12-2019 12:14-0400 Respiratory Rate 16 /min Clari [place] Encounters Encounter Date Encounter Type Care Provider Facility Start: 09-27-2023 ambulatory David DIAMOND Facility :[facility] Start: 09-12-2023 End: 09-13-2023 ambulatory TIMOTHY WILL Not Available Start: 08-22-2023 ambulatory David DARA Facility:Marilu Schmidt [place] Start: 08-12-2023 ambulatory Lakshmi Ruiz [facility] Start: 07-06-2022 End: 07-07-2022 ambulatory RODRIGUEZ KAPLAN Facility:[facility] Start: 05-21-2022 End: 05-22-2022 ambulatory RODRIGUEZ KAPLAN Facility:[facility] Start: 03-19-2022 End: 03-27-2022 ambulatory RODRIGUEZ KAPLAN Facility:[facility] Start: 02-22-2022 End: 02-23-[address] RIKI RIOS Facility:[facility] Start: 09-23-2021 End: 09-23-2021 [facility] Start: 09-21-2021 End: 09-21-2021 [facility] Start: 09-13-2021 End: 09-13-2021 Emergency department patient visit JACKSON Indira PINTO [facility] Start: 09-13-2021 End: 09-13-2021 Emergency department patient visit Francis Ribera [facility] DO Work Phone: [facility] ED Comment on above: Sprain of right foot , initial encounter (Primary Dx); Sprain of left ankle, unspecified ligament, initial encounter Start: 05-08-2021 End: 05-11-2021 ambulatory SAHIL INTERIANO [facility] Start: 05-08-2021 End: 05-10-2021 Subsequent hospital visit by physician Karoline Meek Dr Room 4 [facility] Radiology Comment on above: Microscopic hematuri a; Flank pain; Hydronephrosis with ureteral calculus Start: 05-01-2021 End: 05-04-2021 ambulatory SAHIL INTERIANO [facility] Start: 05-01-2021 End: 05-03-2021 Subsequent hospital visit by physician Karoline Meek Dr Room 2 [facility] Radiology Comment on above: Seropositive rheumat oid arthritis (HCC) Pain Start: 03-01-2021 End: 03-01-2021 Emergency department [facility] Start: 03-01-2021 End: 03-01-2021 Emergency department patient visit Clari Tim Work Phone: [facility] ED Comment on above: Strain of right wris t, initial encounter (Primary Dx) Start: 11-07-2020 End: 11-10-2020 ambulatory SHAHRZAD ZENG [facility] Start: 11-07-2020 End: 11-09-2020 Subsequent hospital visit by physician Clari [facility] Radiology Start: 09-06-2019 End: 09-06-2019 Emergency department patient visit Oscar Zuniga Work Phone: [facility] ED Comment on above: Sprain of collateral ligament of right knee, initial encounter (Primary Dx) Start: 09-04-2019 End: 09-04-2019 Emergency department patient visit David Reynoso Perez [facility] ED Comment on above: Injury of right knee , initial encounter (Primary Dx); Effusion of right knee joint Start: 05-12-2019 End: 05-12-2019 Emergency department patient visit [facility] ED Comment on above: Contusion of left coles nd including fingers, initial encounter (Primary Dx) Start: 04-20-2019 End: 04-20-2019 Emergency department patient visit JEAN HARPER [facility] Start: 07-29-2017 End: 07-30-2017 Ambulatory Nilo Hastingsen Facility:[facility]urg[facility] Procedures Date Procedure Procedure Detail Performing [...] DTaP/Tdap/Td vaccine (2 - Td or Tdap) Start: 11-28-2027 DTaP/Tdap/Td vaccine (2 - Td) DTaP/Tdap/Td vaccine (2 - Td) [place], [place] Start: 11-25-2021 End: 11-25-2021 Patient encounter procedure 11/25/2021 Office Visit Rheumatology Fatuma Mckeon MD [address] [place] [id number] [facility] Start: 06-24-2021 End: 06-24-2021 Patient encounter procedure 06/24/2021 Office Visit Rheumatology Fatuma Mckeon MD [address] [place] [address] [id number] [facility] Start: 06-03-2021 Influenza vaccination [facility] Start: 2021 Lipid panel Lipid screen [facility] Start: 06-03-2020 Influenza vaccination Flu vaccine (# 1) [place], [place] Start: 06-03-2019 Influenza vaccination Flu vaccine (# 1) [place], [place] Start: 2016 Diabetes screen Diabetes screen [facility] Start: 2000 DTaP/Tdap/Td vaccine (1 - Tdap) DTaP/Tdap/Td vaccine (1 - Tdap) [place], [place] Start: 1996 HIV screen HIV screen [place], [place] Start: 1996 [facility] Start: 1994 Varicella Vaccine (1 of 2 - 13+ 2-dose series) Varicella Vaccine (1 of 2 - 13+ 2-dose series) [place], [place] Start: 1993 COVID-19 Vaccine (1) COVID-19 Vaccin e (1) Start: 1992 DTaP/Tdap/Td vaccine (1 - Tdap) DTaP/Tdap/Td vaccine (1 - Tdap) [place], [place] Start: 1982 Varicella Vaccine (1 of 2 - 2-dose childhood series) Varicella Vaccine (1 of 2 - 2-dose childhood series) Start: 1981 Hepatitis C screening Hepatitis C sc reen End: 05-12-2019 Splint application Splint application Procedures STAT One Time for 1 Occurrences starting 05/12/2019 until 05/12/2019 [place], [place] Comment on above: One Time for 1 Occur rences starting 05/12/2019 until 05/12/2019 Immunizations Immunization Date Immunization Notes Care Provider Deisy duong 07-14-2010 influenza virus vacc ine, whole virus Clari Tim [place], [place] Payers Date Payer Category Payer Medicaid [id number] 2020 Unknown [id number] 2019 Unknown [id number] 2019 Unknown [facility] [id number] xxxxxxxxx 2019-Present [address] [address] [place] [address] xxxxxxxxx [id number] 1981 Unknown [id number] [id number] 1981 Unknown [id number] 2.16.840.1.392680.3.579.2.173 1981 Unknown [id number] 2.16.840.1.910969.3.579.2.173 1981 Unknown [id number] 2.16.840.1.495433.3.579.2.173 1981 Unknown [id number] 2.16.840.1.884605.3.579.2.173 1981 Unknown [id number] 2.16.840.1.774930.3.579.2.173 1981 Unknown [id number] 2.16.840.1.268939.3.579.2.173 1981 Unknown [id number] 2.16840.1.224737.3.579.2.173 1981 Unknown [id number] 2.16840.1.033449.3.579.2.173 1981 Unknown [id number] 2.840.1.555470.3.579.2.173 1981 Unknown [id number] 2.16840.1.280344.3.579.2.173 1981 Unknown [id number] 2.16840.1.636805.3.579.2.173 1981 Unknown [id number] 2.16840.1.039322.3.579.2.173 1981 Unknown [id number] 2.16840.1.902389.3.579.2.173 1981 Unknown [id number] 2.16840.1.701192.3.579.2.173 1981 Unknown [id number] 2.16840.1.007364.3.579.2.173 1981 Unknown [id number] 2.16840.1.069073.3.579.2.173 1981 Unknown [id number] 2.16840.1.390702.3.579.2.173 1981 Unknown [id number] 2.16840.1.457077.3.579.2.173 1981 Unknown [id number] 2.16.840.1.217801.3.579.2.173 1981 Unknown [id number] 2.16.840.1.304448.3.579.2.593 1981 Unknown [id number] 2.16.840.1.952055.3.579.2.593 1981 Unknown [id number] 2.16.840.1.390778.3.579.2.593 1981 Unknown [id number] 2.16.840.1.580188.3.579.2.593 1981 Unknown [id number] 2.16.840.1.634198.3.579.2.1259 1981 Unknown [id number] 2.16.840.1.334774.3.579.2.1259 1981 Unknown [id number] 2.16.840.1.849901.3.579.2.727 1959 Unknown [id number] [id number].3.6 [id number] 1959 Unknown [id number] Social History Date Type Detail Facility Start: 11-08-2014 End: 09-04-2019 Tobacco smoking status LAIS Never smoker Start: 09-04-2019 End: 03-27-2021 Alcohol intake Current non-drinker of alcohol (finding) [place], [place] Start: 10-16-2017 Alcohol Comment very reare [facility] [place] Start: 1981 Sex Assigned At Not on file [place], [place] Start: 05-12-2019 Alcohol intake No Emma [place] Start: 11-08-2014 End: 09-06-2019 Tobacco use and exposure Never used [place], [place] Exposure to SARS-CoV -2 (event) Not sure Start: 03-27-2021 Alcohol Comment very rare Emma [...] his work. 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 He has low back pain 3/10. The [...] in office. CC: Chen Kaplan CNP [facility] Discharge instructions 09-13-2021 InstructionsAttachments Note [...] cannot be sent through Care Everywhere.Ankle Sprain (Icelandic)documented in this encounter [employer] Phone: Evaluation note Note Date & Type Note Facility Evaluation note Diagnosis Strain of right wrist, initial encounter- Primary documented in this encounter [employer] Phone: Evaluation note Note Date & Type Note Facility Evaluation note Diagnosis Seropositive rheumatoid arthritis (HCC) Rheumatoid arthritis documented in this encounter [employer] Phone: Evaluation note Note Date & Type Note Facility Evaluation note Diagnosis Pain Generalized pain documented in this encounter [employer] Phone: Evaluation note Note Date & Type Note Facility Evaluation note Diagnosis Microscopic hematuria Flank pain Abdominal pain, unspecified site Hydronephrosis with ureteral calculus Calculus of ureter documented in this encounter [employer] Phone: Evaluation note Note Date & Type Note Facility Evaluation note Diagnosis Sprain of right foot, initial encounter- Primary Sprain of left ankle, unspecified ligament, initial encounter documented in this encounter [employer]SCR[employer]GE Phone: Hospital Discharge instructions Attachments Note Date & Type Note Facility Hospital Discharge instructions The following attachments cannot be sent through Care Everywhere.Strain or Sprain (Icelandic)documented in this encounter [employer] Phone: Summary Purpose Family History No Family History Records FoundNo Family History Records FoundNo Family History Records FoundNo Family History Records FoundNo Family History Records FoundNo Family History Records FoundNo Family History Records Found Advance Directives No Advanced Directives Records FoundDocuments on File Type Date Recorded 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 * Finger: Bruises (Icelandic) documented in this encounter* Attachments The following attachments cannot be sent through Care Everywhere. * Knee Sprain (Icelandic) documented in this encounter Additional Source Comments (unrecognized sect ion and content) No Status Records FoundNo Status Records FoundNo Status Records FoundNo Status Records FoundNo Status Records FoundNo Status Records FoundNo Status Records Found INFORMATION SOURCE (unrecogn ized section and content) DATE CREATED AUTHOR 03/31/2018 [facility] DATE CREATED AUTHOR AUTHOR'S ORGANIZ ATION 04/26/[address] [facility] DATE CREATED AUTHOR AUTHOR'S ORGANIZ ATION 09/23/2021 [facility] DATE CREATED AUTHOR AUTHOR'S ORGANIZ ATION 02/16/2023 [facility] DATE CREATED AUTHOR AUTHOR'S ORGANIZ ATION 08/14/2023 [facility] DATE CREATED AUTHOR AUTHOR'S ORGANIZ ATION 09/18/2023 [facility] DATE CREATED AUTHOR AUTHOR'S ORGANIZ ATION 09/29/2023 [facility] Reason for Visit (unrecogniz ed section and [...] Care Teams (unrecognized sec tion and content) Skin Therapist Relationship Specialty Start Date End Date TimClari [address] [place] [address] PCP - General Nurse Practitioner 04/21/19 FOR [...] BE BASED ON THE PRIMARY CLINICAL RECORDS. [email or web address] provides no warranty or guarantee of the accuracy or completeness of information in this document.
[2023-11-09 08:59] LABS: Basophils Absolute Auto 0.1 10^3/uL (0.0-0.1); Basophils Percent Auto 0.9 % (0.2-2.0); Eosinophils Absolute Auto 0.1 10^3/uL (0.0-0.7); Eosinophils Percent Auto 1.2 % (0.9-7.0); Hematocrit 45.2 % (42.0-54.0); Hemoglobin 15.3 g/dL (14.0-18.0); Immature Granulocytes Abs Auto 0.05 10^3/uL (0.00-0.03); Immature Granulocytes Pct Auto 0.6 % (0.0-0.5); Lymphocytes Absolute Auto 2.4 10^3/uL (1.2-3.8); Lymphocytes Percent Auto 29.2 % (20.5-60.0); Mean Corpuscular HGB Conc 33.8 g/dL (29.9-35.2); Mean Corpuscular Hemoglobin 29.5 pg (25.9-34.0); Mean Corpuscular Volume 87.1 fL (80.0-94.0); Monocytes Absolute Auto 0.7 10^3/uL (0.3-0.8); Monocytes Percent Auto 7.9 % (1.7-12.0); Neutrophils Absolute Auto 4.9 10^3/uL (1.4-6.5); Neutrophils Percent Auto 60.2 % (43.0-75.0); Platelet Count 177 10^3/uL (150-450); Red Blood Count 5.19 10^6/uL (4.70-6.10); Red Cell Distribution Width 12.8 % (11.0-15.0); White Blood Count 8.2 10^3/uL (4.0-11.0)
[2023-11-09 09:14] LABS: C Reactive Protein 0.65 mg/dL (<=0.50); Uric Acid 9.3 mg/dL (3.5-7.2)
[2023-11-10 08:13] LABS: Antistreptolysin O Ab 93.6 IU/mL (0.0-200.0); Rheumatoid Factor (RF) 38.2 IU/mL (<14.0)
== END 2023-11-09 08:23 | disposition home or self-care (01) ==
LOC: LAB 08:25
PROVIDERS: PCP Nurse Practitioner Family; Visit Provider Nurse Practitioner Family
DX: R07.9 Chest pain, unspecified (principal); M25.50 Pain in unspecified joint; R53.83 Other fatigue
CPT/HCPCS: 36415; 84550; 85025; 86038; 86060; 86140; 86430; 86431; 93017

== ENCOUNTER 2023-11-27 14:56 | Emergency (ER) | payer MEDICAID, SELFPAY ==
[2023-11-27 14:59] VITALS: BP 166/91; PULSE 93; RESP 20; TEMP 36.6; O2SAT 97; BMI 36.5
--- OUTSIDE RECORDS SUMMARY | 2023-11-27 15:01 | XMS_ITS | CCD ---
Author Name Unknown Address [address] [place] [address] Organization [facility] Care Team Providers Care Medical Insurance Claims Specialist Name Role Phone Nilo Mendez Unavailable Unavailable JEAN HARPER Primary Care Unavailable KENYATTA KEN Attending Unavailable SANDOVALRI, ARTEMIO Consulting Unavailable Tim, Clari A Primary Care Provider [phone] Tim, Clari A Primary Care Provider [phone] Tim, Clari A Primary Care Provider [phone] TIM, CLARI A Primary Care Unavailable SHAHRZAD ZENG Referring Unavailable TIM, CLARI A Primary Care Unavailable TIM, CLARI A Primary Care Unavailable INTERIANOSAHIL R Referring Unavailable TIM, CLARI A Primary Care Unavailable INTERIANOSAHIL R Referring Unavailable INTERIANOSAHIL R Referring Unavailable [...] Care Unavailable INTERIANO, SAHIL R Referring Unavailable TIM, [...] DR RIKI Loera Consulting Unavailable ZIEBER, DR IRKI Loera Consulting Unavailable EUSEBIO, RODRIGUEZ Attending Unavailable [...] Agonists (13 sources) traMADol Drug Allergy 6 [facility] Penicillins (antibiotic) (13 sources) Penicillins Drug Allergy 1 [facility] (6 sources) Penicillins; Translations: [penicillins] Propensity to adverse reactions to drug 1 [place], [place] (5 sources) traMADol Drug Allergy 6 [place], [place] (1 source) Penicillin Drug Allergy 8 [facility] (2 sources) traMADol; Translations: [Ultram] Drug Allergy [facility] Medications Current Medications Medication Drug [...] Facility Physician Referralon 023 Physician Referral [phone] [id number] Normal [facility] MRI LSPINE WO CONon 05-21-20 22 MRI [...] by: MICHAEL RAE Date: 2022-05-21 18:38 Normal [facility] XR FOREIGN BODY EYEon 2021 XR FOREIGN BODY EYE EXAMINATION: XR FOREIGN BODY EYE HISTORY: Foreign body in eye COMPARISON: No relevant comparison available. FINDINGS: ORBITS: Negative for a metallic foreign body. OTHER: Negative. IMPRESSION: 1. No metallic foreign body within the orbits. Electronically authenticated by: RIKI RIOS Date: 2022-05-21 10:36 Normal [facility] XR LSPINE MIN 4 VIEWSon 02-01 XR [...] by: RIKI RIOS Date: 2022-02-22 11:06 Normal [facility] CBC with Diffon 09-23-2021 Abs. Basophil 0.02 k/uL Normal 0.0-0.2 [facility] Comment on above: Performed By: #### C ELOY LOPEZ, IPF ####[address] [place] [address] Lab Director: Michael Meyer MD Abs.Imm.Granulocyte 0.02 k/uL Normal 0.00-0.30 [facility] Comment on above: Performed By: #### C ELOY LOPEZ, IPF ####[address] [place] [address] lab Director: Michael Meyer MD Abs.Neutrophil (Seg) 1.28 k/uL Low 1.50-8.10 [facility] Comment on above: Performed By: #### C ELOY LOPEZ, IPF ####[address] [place] [address] lab Director: Michael Meyer MD Basophils/100 WBC (Bld) 1 % Normal 0-2 [facility] Comment on above: Performed By: #### C DP, CP, IPF ####[address] , [place] [address] Lab Director: Michael Meyer MD Eosinophils (Bld) [#/Vol] 0.00 10*3/uL Normal 0.00-0.44 [facility] Comment on above: Performed By: #### C DP, CP, IPF ####[address] , [place] [address] Lab Director: Michael Meyer MD Eosinophils/100 WBC (Bld) 0 % Low 1-4 [facility] Comment on above: Performed By: #### C DP, CP, IPF ####[address] , [facility] Lab Director: Michael Meyer MD Immature granulocytes/100 WBC (Bld) 1 % High 0 [facility] Comment on above: Performed By: #### C JESSICA, CP, IPF ####[address] , [facility] Lab Director: Michael Meyer MD Lymphocytes (Bld) [#/Vol] 0.73 10*3/uL Low 1.10-3.70 [facility] Comment on above: Performed By: #### C DP, CP, IPF ####[address] [place] [address] Lab Director: Michael Meyer MD Lymphocytes/100 WBC (Bld) 33 % Normal 24-43 [facility] Comment on above: Performed By: #### C DP, CP, IPF ####[address] , [place] [address] Lab Director: Michael Meyer MD Monocytes (Bld) [#/Vol] 0.15 10*3/uL Normal 0.10-1.20 [facility] Comment on above: Performed By: #### C DP, CP, IPF ####[address] , [place] [address] Lab Director: Michael Meyer MD Monocytes/100 WBC (Bld) 7 % Normal 3-12 [facility] Comment on above: Performed By: #### C DP, CP, IPF ####[address] , [facility] Lab Director: Michael Meyer MD Morphology Fernando (Bld) [Interp] Platelet scan shows Normal Platelets Normal [facility] Comment on above: Performed By: #### C DP, CP, IPF ####[address] , [facility] Lab Director: Michael Meyer MD Neutrophil (Seg) 58 % Normal 36-65 [facility] Comment on above: Performed By: #### C DP, CP, IPF ####[address] , [facility] Lab Director: Michael Meyer MD Erythrocyte distribution width (RBC) [Ratio] 11.2 % Low 11.8-14.4 [facility] Comment on above: Performed By: #### C DP, CP, IPF ####[address] , [place] [address] Lab Director: Michael Meyer MD Hematocrit (Bld) [Volume fraction] 46.3 % Normal 40.7-50.3 [facility] Comment on above: Performed By: #### C DP, CP, IPF ####[address] [place] [address] Lab Director: Michael Meyer MD Hemoglobin (Bld) [Mass/Vol] 15.6 g/dL Normal 13.0-17.0 [facility] Comment on above: Performed By: #### C DP, CP, IPF ####[address] , [place] 125[address] Lab Director: Michael Meyer MD MCH (RBC) [Entitic mass] 28.5 pg Normal 25.2-33.5 [facility] Comment on above: Performed By: #### C DP, CP, IPF ####[address] , [place] 46[address] lab Director: Michael Meyer MD MCHC (RBC) [Mass/Vol] 33.7 g/dL Normal 28.4-34.8 [facility] Comment on above: Performed By: #### C DP, CP, IPF ####[address] [place] [address] Fym Director: Michael Meyer MD MCV (RBC) [Entitic vol] 84.6 fL Normal 82.6-102.9 [facility] Comment on above: Performed By: #### C DP, CP, IPF ####[address] [place] [address] Bqf Director: Michael Meyer MD NRBC Automated 0.0 per 100 WBC Normal 0.0 [facility] Comment on above: Performed By: #### C DP, CP, IPF ####[address] , [place] 477[address] lab Director: Michael Meyer MD Platelet Count See Reflexed IPF Result Normal 138-453 [facility] Comment on above: Performed By: #### C DP, CP, IPF ####[address] , [place] [address]83 Lab Director: Michael Meyer MD RBC (Bld) [#/Vol] 5.47 10*6/uL Normal 4.21-5.77 [facility] Comment on above: Performed By: #### C DP, CP, IPF ####[address] , [place] 222[address]83 Lab Director: Michael Meyer MD WBC (Bld) [#/Vol] 2.2 10*3/uL Low 3.5-11.3 [facility] Comment on above: Performed By: #### C DP, CP, IPF ####[facility] [place] [address] Lab Director: Michael Meyer MD Auto Diff Performed NOT REPORTED Normal [facility] Comment on above: Performed By: #### C DP, CP, IPF ####[address] , [place] [phone] Director: Michael Meyer MD MPV NOT REPORTED Normal 8.1-13.5 [facility] Comment on above: Performed By: #### C DP, CP, IPF ####[address] [place] [address] Lab Director: Michael Meyer MD Platelet Comment NOT REPORTED Normal [facility] Comment on above: Performed By: #### C DP, CP, IPF ####[address] [place] [address] Lab Director: Michael Meyer MD RBC morphology finding Nom (Bld) NOT REPORTED Normal [facility] Comment on above: Performed By: #### C DP, CP, IPF ####[address] , [place] [phone] Director: Michael Meyer MD WBC Morphology NOT REPORTED Normal [facility] Comment on above: Performed By: #### C DP, CP, IPF ####[address] [place] [address] Lab Director: Michael Meyer MD Comp Metabolic Profon 2020 (cont.) Normal [facility] Comment on above: Result Comment: Aver age GFR for 40-49 years old: 99 mL/min/1.73sq m Chronic Kidney Disease: <60 mL/min/1.73sq m Kidney failure: <15 mL/min/1.73sq m eGFR calculated using average adult body mass. Additional eGFR calculator available at: http://www.[employer]/multiple_crcl_2012.htm Performed By: #### C DP, CP, IPF ####[address] [place] [address] Lab Director: Michael Meyer MD Albumin [Mass/Vol] 4.1 g/dL Normal 3.5-5.2 [facility] Comment on above: Performed By: #### C DP, CP, IPF ####[address] [place] [address] Lab Director: Michael Meyer MD Albumin/Glob Ratio 1.1 Normal 1.0-2.5 [facility] Comment on above: Performed By: #### C DP, CP, IPF ####[address] [place] [address] Lab Director: Michael Meyer MD Alkaline Phos 87 U/L Normal 40-129 [facility] Comment on above: Performed By: #### C DP, CP, IPF ####[address] [place] [address] Lab Director: Michael Meyer MD ALT [Catalytic activity/Vol] 65 U/L High 5-41 [facility] Comment on above: Performed By: #### C DP, CP, IPF ####[address] [place] [address] Lab Director: Michael Meyer MD Anion gap [Moles/Vol] 13 mmol/L Normal 9-17 [facility] Comment on above: Performed By: #### C DP, CP, IPF ####[address] [place] [address] Lab Director: Michael Meyer MD AST [Catalytic activity/Vol] 68 U/L High <40 [facility] Comment on above: Performed By: #### C DP, CP, IPF ####[address] , [place] 6459[address] Lab Director: Michael Meyer MD Bilirubin [Mass/Vol] 0.52 mg/dL Normal 0.3-1.2 [facility] Comment on above: Performed By: #### C DP, CP, IPF ####[address] , [place] 4736[address] lab Director: Michael Meyer MD BUN/CRE Ratio 8 Low 9-20 [facility] Comment on above: Performed By: #### C DP, CP, IPF ####[address] , [place] 2916983 lab Director: Michael Meyer MD Calcium [Mass/Vol] 8.8 mg/dL Normal 8.6-10.4 [facility] Comment on above: Performed By: #### C DP, CP, IPF ####[address] , [place] 796[address]83 Lab Director: Michael Meyer MD Chloride [Moles/Vol] 100 mmol/L Normal 98-107 [facility] Comment on above: Performed By: #### C DP, CP, IPF ####[address] [place] [address] Lab Director: Michael Meyer MD CO2 [Moles/Vol] 23 mmol/L Normal 20-31 [facility] Comment on above: Performed By: #### C DP, CP, IPF ####[address] , [place] 64[address]83 lab Director: Michael Meyer MD Creatinine [Mass/Vol] 1.55 mg/dL High 0.70-1.20 [facility] Comment on above: Performed By: #### C DP, CP, IPF ####[address] [place] [address] Lab Director: Michael Meyer MD GFR, Amer >60 Normal >60 [facility] Comment on above: Performed By: #### C DP, CP, IPF ####[address] [place] [address] Lab Director: Michael Meyer MD GFR,non Amer 50 mL/min Low >60 [facility] Comment on above: Performed By: #### C DP, CP, IPF ####[address] [place] [address] Lab Director: Michael Meyer MD Glucose [Mass/Vol] 94 mg/dL Normal 70-99 [facility] Comment on above: Performed By: #### C DP, CP, IPF ####[address] [place] [address] Lab Director: Michael Meyer MD Potassium [Moles/Vol] 3.9 mmol/L Normal 3.7-5.3 [facility] Comment on above: Performed By: #### C DP, CP, IPF ####[address] [place] [address] Lab Director: Michael Meyer MD Protein [Mass/Vol] 7.9 g/dL Normal 6.4-8.3 [facility] Comment on above: Performed By: #### C DP, CP, IPF ####[address] [place] [address] Lab Director: Michael Meyer MD Sodium [Moles/Vol] 136 mmol/L Normal 135-144 [facility] Comment on above: Performed By: #### C DP, CP, IPF ####[address] [place] [address] Lab Director: Michael Meyer MD Staging: Normal [facility] Comment on above: Result Comment: Stag e 1: Some kidney damage normal GFR Stage 2: Mild kidney damage GFR 60-89 Stage 3: Moderate kidney damage GFR 30-59 Stage 4: Severe kidney damage GFR 15-29 Stage 5: Severe kidney damage GFR <15 ESRD - chronic treatment by dialysis or transplant Performed By: #### C DP, CP, IPF ####[address] , [place] 078[address] [facility] Director: Michael Meyer MD Urea nitrogen [Mass/Vol] 13 mg/dL Normal 6-20 [facility] Comment on above: Performed By: #### C JESSICA, CP, IPF ####[address] [place] [address] Lab Director: Michael Meyer MD Lactic Acidon 09-23-2021 Lactate [Moles/Vol] 0.9 mmol/L Normal 0.5-2.2 [facility] Comment on above: Performed By: #### L ACTIC ####[address] [place] [address] [facility] Director: Michael Meyer MD Lactic Acid,Whole Bl NOT REPORTED Normal 0.7-2.1 [facility] Comment on above: Performed By: #### L ACTIC ####[address] [place] [address] [facility] Director: Michael Meyer MD PLT, Immature Fract.on 09-23 Platelet, Fluoresc. 42 k/uL Low 138-453 [facility] Comment on above: Performed By: #### C DP, CP, IPF #### [address] [place] [address] Sash Clamp Operator: Michael Meyer MD PLT, Immature Fract. 1.2 % Normal 1.1-10.3 [facility] Comment on above: Performed By: #### C DP, CP, IPF #### [address] [place], [place] [address] [employer] Cl[employer] Operator: Michael Meyer MD XR CHEST (SINGLE VIEW [...] Julio C Calderón 09/22/21 Final result Normal [facility] Resp Viral Panelon 1 Adenovirus Not detected Normal [facility] Comment on above: Performed By: #### R MEDIUM CYCLE SALESPERSON ####[address] [address] Lab Director: Juan R Tang[address] [place] [id number] Lab Director: Michael Meyer MD Bordet.parapertussis Not detected Normal [facility] Comment on above: Performed By: #### R MEDIUM CYCLE SALESPERSON ####[address] [place] [address] Lab Director: Juan R aTng[address] [place] [id number] Lab Director: Michael Meyer MD Bordetella pertussis Not detected Normal [facility] Comment on above: Performed By: #### R MEDIUM CYCLE SALESPERSON ####[address] [place] [address] Lab Director: Juan R Tang[address] [place] [address] Lab Director: Michael Meyer MD Chlamyd.pneumoniae Not detected Normal [facility] Comment on above: Performed By: #### R MEDIUM CYCLE SALESPERSON ####[facility] [address] [place] [address] Lab Director: Juan R [facility] [place] [address] Lab Director: Michael Meyer MD Coronavirus 229E Not detected [facility] Comment on above: Performed By: #### R MEDIUM CYCLE SALESPERSON ####[address] [address] Lab Director: Juan R Tang[address] [place] [phone] Director: Michael Meyer MD Coronavirus HKU1 Not detected [facility] Comment on above: Performed By: #### R MEDIUM CYCLE SALESPERSON ####[address] [address] Lab Director: Juan R Tang[address] [place] [phone] Director: Michael Meyer MD Coronavirus NL63 Not detected [facility] Comment on above: Performed By: #### R MEDIUM CYCLE SALESPERSON ####[address] [address] Lab Director: Juan R Tang[address] [place] [address] Lab Director: Michael Meyer MD Coronavirus OC43 Not detected [facility] Comment on above: Performed By: #### R MEDIUM CYCLE SALESPERSON ####[address] [place] [address] Lab Director: Juan R [address] [place] [address] Lab Director: Michael Meyer MD Human Metapneumo Not detected [facility] Comment on above: Performed By: #### R MEDIUM CYCLE SALESPERSON ####[facility] [address] [place], [place] [phone])[phone] Director: Juan R Tang[address] [place] [address] Lab Director: Michael Meyer MD Influenza A Not detected Normal [facility] Comment on above: Performed By: #### R MEDIUM CYCLE SALESPERSON ####[facility] [address] [place] [address] Lab Director: Juan R Tang[address] [place] [address] Lab Director: Michael Meyer MD Influenza B Not detected [facility] Comment on above: Performed By: #### R MEDIUM CYCLE SALESPERSON ####[facility] [address] [place], [place] [phone] Director: Juan R Tang[address] [place] [address] Lab Director: Michael Meyer MD Mycoplas.pneumoniae Not detected Normal [facility] Comment on above: Result Comment: Perf ormed by multiplexed nucleic acid assay. Performed By: #### R MEDIUM CYCLE SALESPERSON ####[facility] [address] [place], [place] [phone])[phone] Director: Juan R Tang[address] [place] [address] Lab Director: Michael Meyer MD Parainfluenza 1 Not detected Normal [facility] Comment on above: Performed By: #### R MEDIUM CYCLE SALESPERSON ####[facility] [address] [place], [place] [phone] Director: Juan R Tang[address] [place] [address] Lab Director: Michael Meyer MD Parainfluenza 2 Not detected Normal [facility] Comment on above: Performed By: #### R MEDIUM CYCLE SALESPERSON ####[facility] [address] [place], [place] [phone] Director: Juan R Tang[address] [place] [address] Lab Director: Michael Meyer MD Parainfluenza 3 Not detected Normal [facility] Comment on above: Performed By: #### R MEDIUM CYCLE SALESPERSON ####[facility] [address] [place], [place] [phone] Director: Juan R Tang[address] [place] [address] Lab Director: Michael Meyer MD Parainfluenza 4 Not detected Normal [facility] Comment on above: Performed By: #### R MEDIUM CYCLE SALESPERSON ####[facility] [address] [place] [address] Lab Director: Juan R Tang[address] [place] [address] Lab Director: Michael Meyer MD Resp Syncytial Virus Not detected Normal [facility] Comment on above: Performed By: #### R MEDIUM CYCLE SALESPERSON ####[facility] [address] [place], [place] [phone])[phone] Director: Juan R Tang[address] [place] [address] Lab Director: Michael Meyer MD Rhino/Enterovirus Not detected Normal [facility] Comment on above: Performed By: #### R MEDIUM CYCLE SALESPERSON ####[facility] [address] [place] [address] Lab Director: Juan R Tang[address] [place] [address] Lab Director: Michael Meyer MD SARS-CoV-2 (COVID-19) RNA LYNDON+probe Ql (Unsp spec) Detected Abnormal [facility] Comment on above: Result Comment: Resu lts reported to the appropriate Health Department Performed By: #### R MEDIUM CYCLE SALESPERSON ####[facility] [address] [place], [place] [phone])[phone] Director: Juan R Tang[address] [place] [address] Lab Director: Michael Meyer MD Resp Viral Panelon 1 Source: .NASOPHARYNGEAL SWAB Normal [facility] Comment on above: Performed By: #### R MEDIUM CYCLE SALESPERSON ####[facility] [address] [place], [place] [phone])[phone] Director: Juan R [facility] [place] [address] Lab Director: Michael Meyer MD Influenza A H1 NOT REPORTED Normal [facility] Comment on above: Performed By: #### R MEDIUM CYCLE SALESPERSON ####[facility] [address] [place], [place] [phone])[phone] Director: Juan R Tang[address] [place] [address] Lab Director: Michael Meyer MD Influenza A H1-2009 NOT REPORTED Normal [facility] Comment on above: Performed By: #### R MEDIUM CYCLE SALESPERSON ####[facility] [address] [place] [address] Lab Director: Juan R Tang[address] [place] [address] Lab Director: Michael Meyer MD Influenza A H3 NOT REPORTED Normal [facility] Comment on above: Performed By: #### R MEDIUM CYCLE SALESPERSON ####[facility] [address] [place], [place] [phone] Director: Juan R Tang[address] [place] [address] Lab Director: Michael Meyer MD No Panel Informationon 09-13 No acute findings. [facility] EXAMINATION: THREE XRAY VIEWS OF THE RIGHT ANKLE; THREE XRAY VIEWS OF THE LEFT FOOT 09/13/2021 9:16 am COMPARISON: None. HISTORY: ORDERING SYSTEM PROVIDED HISTORY: Pain TECHNOLOGIST PROVIDED HISTORY: Pain FINDINGS: No acute fracture demonstrated. 2 threaded screws noted medial malleolus from repair prior injury. Alignment anatomic. Small plantar and dorsal calcaneal spurs present. Renf-dm-lswdunlr degenerative change primarily midfoot. Overall alignment anatomic. Soft tissues unremarkable. [facility] Jeronimo Art DO - 09/13/2021 EXAMINATION: THREE XRAY VIEWS OF THE RIGHT ANKLE; THREE XRAY VIEWS OF THE LEFT FOOT 09/13/2021 9:16 am COMPARISON: None. HISTORY: ORDERING SYSTEM PROVIDED HISTORY: Pain TECHNOLOGIST PROVIDED HISTORY: Pain FINDINGS: No acute fracture demonstrated. 2 threaded screws noted medial malleolus from repair prior injury. Alignment anatomic. Small plantar and dorsal calcaneal spurs present. Vbhj-bo-jyfvvmvn degenerative change primarily midfoot. Overall alignment anatomic. Soft tissues unremarkable. IMPRESSION: No acute findings. [employer] Work Phone: [facility] Work Phone: No acute findings. [facility] EXAMINATION: THREE XRAY VIEWS OF THE RIGHT FOOT; THREE XRAY VIEWS OF THE LEFT ANKLE 09/13/2021 9:14 am COMPARISON: None. HISTORY: ORDERING SYSTEM PROVIDED HISTORY: pain TECHNOLOGIST PROVIDED HISTORY: pain FINDINGS: No acute fracture demonstrated. Alignment is anatomic. 2 threaded screws noted within the medial malleolus. Hkrk-qq-bhhwqotm degenerative change primarily midfoot. Small plantar and dorsal calcaneal spurs present. Soft tissues unremarkable. [facility] Jeronimo Art DO - 09/13/2021 EXAMINATION: THREE XRAY VIEWS OF THE RIGHT FOOT; THREE XRAY VIEWS OF THE LEFT ANKLE 09/13/2021 9:14 am COMPARISON: None. HISTORY: ORDERING SYSTEM PROVIDED HISTORY: pain TECHNOLOGIST PROVIDED HISTORY: pain FINDINGS: No acute fracture demonstrated. Alignment is anatomic. 2 threaded screws noted within the medial malleolus. Gbbn-hd-satjsgje degenerative change primarily midfoot. Small plantar and dorsal calcaneal spurs present. Soft tissues unremarkable. IMPRESSION: No acute findings. [employer] Phone: No Panel InformationOrdered By: Jeronimo Art on 09-13-2021 [employer] Phone: XR ANKLE LEFT (MIN 3 VIEWS)o n 09-13-2021 XR ANKLE LEFT (MIN 3 VIEWS) EXAMINATION: THREE XRAY VIEWS OF THE RIGHT FOOT; THREE XRAY VIEWS OF THE LEFT ANKLE 09/13/2021 9:14 am COMPARISON: None. HISTORY: ORDERING SYSTEM PROVIDED HISTORY: pain TECHNOLOGIST PROVIDED HISTORY: pain FINDINGS: No acute fracture demonstrated. Alignment is anatomic. 2 threaded screws noted within the medial malleolus. Owoe-kr-axtxvnhx degenerative change primarily midfoot. Small plantar and dorsal calcaneal spurs present. Soft tissues unremarkable. IMPRESSION: No acute findings. Interpreted by: Jeronimo Art DO Signed by: Jeronimo Art DO 09/13/21 Final result Normal [facility] Radiology Study observation (narrative) [employer] Phone: XR ANKLE RIGHT (MIN 3 VIEWS) [...] Small plantar and dorsal calcaneal spurs present. Bfdg-fy-ortlpfxs degenerative change primarily midfoot. Overall alignment anatomic. Soft tissues unremarkable. IMPRESSION: No acute findings. Interpreted by: Jeronimo Art DO Signed by: Jeronimo Art DO 09/13/21 Final result Normal [facility] Radiology Study observation (narrative) [employer] Phone: XR FOOT LEFT (MIN 3 VIEWS)on [...] Small plantar and dorsal calcaneal spurs present. Bwbe-fl-uosvbzqy degenerative change primarily midfoot. Overall alignment anatomic. Soft tissues unremarkable. IMPRESSION: No acute findings. Interpreted by: Jeronimo Art DO Signed by: Jeronimo Art DO 09/13/21 Final result Normal [facility] Radiology Study observation (narrative) Emma peralta Work [...] threaded screws noted within the medial malleolus. [id number] degenerative change primarily midfoot. Small plantar and dorsal calcaneal spurs present. Soft tissues unremarkable. IMPRESSION: No acute findings. Interpreted by: Jeronimo Art DO Signed by: Jeronimo Art DO 09/13/21 Final result Normal [facility] Radiology Study observation (narrative) Emma peralta Work [...] Kerri Scott MD 05/08/21 Final result Normal [facility] XR ABDOMEN (KUB) (SINGLE AP VIEW)Ordered By: Sahil Interiano on 05-08-2021 Nonobstructive bowel gas pattern. No radiodensities diagnostic of nephroliths. [employer] Phone: EXAMINATION: ONE SUPINE XRAY VIEW(S) OF THE ABDOMEN 05/08/2021 10:35 am COMPARISON: 01 May 2021 HISTORY: ORDERING SYSTEM PROVIDED HISTORY: Microscopic hematuria FINDINGS: The bowel gas pattern is non obstructive. No organomegaly, free air or abnormal calcifications are noted. Mild levo scoliotic curvature is present. [employer] Phone: Luther, Mhpn Incoming Radiant Results From Sulia - 05/08/2021 2:06 PM EDT EXAMINATION: ONE SUPINE XRAY VIEW(S) OF THE ABDOMEN 05/08/2021 10:35 am COMPARISON: 01 May 2021 HISTORY: ORDERING SYSTEM PROVIDED HISTORY: Microscopic hematuria FINDINGS: The bowel gas pattern is non obstructive. No organomegaly, free air or abnormal calcifications are noted. Mild levo scoliotic curvature is present. IMPRESSION: Nonobstructive bowel gas pattern. No radiodensities diagnostic of nephroliths. [employer] Phone: [employer] Phone: No Panel InformationOrdered By: Fatuma Mckeon on 05-01-2021 1. No acute osseous abnormality of the right ankle. Posttraumatic and postsurgical changes as above. Mild tibiotalar joint osteoarthritis. 2. Acute osseous abnormality of the right foot. Chronic appearing well-defined erosion or subchondral cyst at the base of the 3rd metatarsal without associated joint space loss. This is a nonspecific finding. [employer] Phone: EXAMINATION: THREE XRAY VIEWS OF THE [...] base of the 3rd metatarsal is nonspecific. [employer] Phone: Luther, pn Incoming Radiant Results From Sul[facility] - 05/01/2021 5:46 PM EDT EXAMINATION: THREE [...] space loss. This is a nonspecific finding. [employer] Phone: [employer] Phone: Unremarkable left wrist/left hand series. There are no plain radiographic findings to suggest an active synovial process of bone as rheumatoid arthritis [employer] Phone: EXAMINATION: 2 XRAY VIEWS OF THE LEFT WRIST; TWO XRAY VIEWS OF THE LEFT HAND 05/01/2021 11:10 am COMPARISON: None. HISTORY: ORDERING SYSTEM PROVIDED HISTORY: Seropositive rheumatoid arthritis (HCC) FINDINGS: The bones and joints are unremarkable without definite fracture, dislocation, significant degenerative/erosi ve change, radiopaque foreign body, abnormal soft tissue calcification or bony destructive lesion [employer] Phone: Luther, pn Incoming Radiant Results From Sulia - 05/01/2021 11:26 AM EDT EXAMINATION: 2 [...] synovial process of bone as rheumatoid arthritis [employer] Phone: [employer] Phone: XR ABDOMEN (KUB) (SINGLE AP VIEW)on [...] Linda Albarran MD 05/01/21 Final result Normal [facility] XR ABDOMEN (KUB) (SINGLE AP VIEW)Ordered By: Sahil Interiano on 05-01-2021 No significant radiographic abnormality in the abdomen. [employer] Phone: EXAMINATION: ONE SUPINE XRAY VIEW(S) OF THE ABDOMEN 05/01/2021 10:51 am COMPARISON: None. HISTORY: ORDERING SYSTEM PROVIDED HISTORY: Pain FINDINGS: Nonobstructive bowel gas pattern. No abnormal calcifications overlying the gallbladder urinary tract. No mass effect. Osseous structures grossly intact. [employer] Phone: Luther, pn Incoming Radiant Results From [facility] - 05/01/2021 11:21 AM EDT EXAMINATION: ONE SUPINE XRAY VIEW(S) OF THE ABDOMEN 05/01/2021 10:51 am COMPARISON: None. HISTORY: ORDERING SYSTEM PROVIDED HISTORY: Pain FINDINGS: Nonobstructive bowel gas pattern. No abnormal calcifications overlying the gallbladder urinary tract. No mass effect. Osseous structures grossly intact. IMPRESSION: No significant radiographic abnormality in the abdomen. [employer] Phone: [employer] Phone: XR ANKLE LEFT (MIN 3 VIEWS)o [...] Clarissa Gomez MD 05/01/21 Final result Normal [facility] XR ANKLE LEFT (MIN 3 VIEWS)O rdered By: Fatuma Mckeon on 05-01-2021 Moderate calcaneal spurring [employer] Phone: EXAMINATION: THREE XRAY VIEWS OF THE LEFT ANKLE 05/01/2021 11:12 am COMPARISON: None. HISTORY: ORDERING SYSTEM PROVIDED HISTORY: Seropositive rheumatoid arthritis (HCC) FINDINGS: There is moderate spurring of the superior aspect of the os calcis. The bones and joints are otherwise unremarkable without definite effusion, acute fracture, dislocation radiopaque foreign body or bony destructive lesion [employer] Phone: Luther, pn Incoming Radiant Results From [employer] - 05/01/2021 11:21 AM EDT EXAMINATION: THREE [...] bony destructive lesion IMPRESSION: Moderate calcaneal spurring [facility] Work Phone: [facility] [employer] Work Phone: XR ANKLE RIGHT (MIN 3 [...] Michael Caceres MD 05/01/21 Final result Normal [facility] XR FOOT LEFT (2 VIEWS)on XR FOOT [...] Clarissa Gomez MD 05/01/21 Final result Normal [facility] XR FOOT LEFT (2 VIEWS)Ordere d By: Fatuma Mckeon on 05-01-2021 Mild degenerative changes There are no plain radiographic findings to suggest an active synovial process of bone as rheumatoid arthritis [facility] Phone: EXAMINATION: TWO XRAY VIEWS OF THE [...] radiopaque foreign body or bony destructive lesion [facility] Phone: Luther, pn Incoming Radiant Results From [employer] - 05/01/2021 11:29 AM EDT EXAMINATION: TWO [...] synovial process of bone as rheumatoid arthritis [facility] Phone: [facility] Phone: XR FOOT RIGHT (2 VIEWS)on XR [...] Michael Caceres MD 05/01/21 Final result Normal [facility] XR HAND LEFT (2 VIEWS)on XR HAND [...] Clarissa Gomez MD 05/01/21 Final result Normal [facility] XR HAND RIGHT (2 VIEWS)on XR HAND [...] Clarissa Gomez MD 05/01/21 Final result Normal [facility] XR HAND RIGHT (2 VIEWS)Order ed By: Fatuma Mckeon on 05-01-2021 Unremarkable two-view right hand series. There are no definite plain radiographic findings to suggest an active synovial process of bone as rheumatoid arthritis [employer] Phone: EXAMINATION: TWO XRAY VIEWS OF THE RIGHT HAND 05/01/2021 11:12 am COMPARISON: None. HISTORY: ORDERING SYSTEM PROVIDED HISTORY: Seropositive rheumatoid arthritis (HCC) FINDINGS: The bones and joints are unremarkable without definite fracture, dislocation, significant degenerative/erosi ve change, radiopaque foreign body, abnormal soft tissue calcification or bony destructive lesion [employer] Phone: Luther, [facility] Incoming Radiant Results From [employer] - 05/01/2021 11:24 AM EDT EXAMINATION: TWO [...] synovial process of bone as rheumatoid arthritis [employer] Phone: [employer] Phone: XR WRIST LEFT (2 VIEWS)on XR [...] Clarissa Gomez MD 05/01/21 Final result Normal [facility] XR WRIST RIGHT (2 VIEWS)on 0 05-01-2021 [...] Clarissa Gomez MD 05/01/21 Final result Normal [facility] XR WRIST RIGHT (2 VIEWS)Orde red By: Fatuma Mckeon on 05-01-2021 Unremarkable two-view right wrist series [employer] Phone: EXAMINATION: 2 XRAY VIEWS OF THE RIGHT WRIST; 05/01/2021 11:11 am COMPARISON: None. HISTORY: ORDERING SYSTEM PROVIDED HISTORY: Seropositive rheumatoid arthritis (HCC) FINDINGS: The bones and joints are unremarkable without definite fracture, dislocation, significant degenerative/erosi ve change, radiopaque foreign body or bony destructive lesion [employer] Phone: Luther, [facility] Incoming Radiant Results From [employer] - 05/01/2021 11:23 AM EDT EXAMINATION: 2 XRAY VIEWS OF THE RIGHT WRIST; 05/01/2021 11:11 am COMPARISON: None. HISTORY: ORDERING SYSTEM PROVIDED HISTORY: Seropositive rheumatoid arthritis (HCC) FINDINGS: The bones and joints are unremarkable without definite fracture, dislocation, significant degenerative/erosi ve change, radiopaque foreign body or bony destructive lesion IMPRESSION: Unremarkable two-view right wrist series [employer] Phone: [employer] Phone: XR WRIST RIGHT (MIN 3 VIEWS) [...] Ebenezer Pepe MD 03/01/21 Final result Normal [facility] XR WRIST RIGHT (MIN 3 VIEWS) Ordered By: Riki Tucker on 03-01-2021 Unremarkable right wrist. [employer] Phone: EXAMINATION: 3 XRAY VIEWS OF THE [...] degenerative findings. No appreciable soft tissue abnormality. [employer] Phone: Luther, [facility] Incoming Radiant Results From [employer] - 03/01/2021 7:52 PM EDT EXAMINATION: 3 [...] soft tissue abnormality. IMPRESSION: Unremarkable right wrist. [employer] Phone: [employer] Phone: XR KNEE RIGHT (1-2 VIEWS)on 11-07-2020 [...] Signed by: Damion Leung MD 11/07/20 Recipients: EDEI Ramon CNP - (authorizing provider) Final result Normal [facility] XR KNEE RIGHT (3 VIEWS)on Joint effusion without acute osseous abnormality. [facility] [place] EXAM[facility]ATION: THREE XRAY VIEWS OF THE RIGHT [...] effusion. The periarticular soft tissues are unremarkable. [facility] [place] Luther, Mhpn Incoming Radiant Results From [employer] - 09/04/2019 6:08 PM EST EXAMINATION: THREE [...] IMPRESSION: Joint effusion without acute osseous abnormality. [facility] [employer] XR HAND LEFT (MIN 3 VIEWS)on 05-12-2019 No acute osseous abnormality. [facility] [place] EXAMINATION: THREE XRAY VIEWS OF THE LEFT HAND 05/12/2019 12:22 pm COMPARISON: November 12, 2018 HISTORY: ORDERING SYSTEM PROVIDED HISTORY: pain TECHNOLOGIST PROVIDED HISTORY: pain FINDINGS: There is no evidence of acute fracture. There is normal alignment. No acute joint abnormality. No focal osseous lesion. No focal soft tissue abnormality. [facility] Luther, Mhpn Incoming Radiant Results From [employer] - 05/12/2019 12:48 PM EDT EXAMINATION: THREE XRAY VIEWS OF THE LEFT HAND 05/12/2019 12:22 pm COMPARISON: November 12, 2018 HISTORY: ORDERING SYSTEM PROVIDED HISTORY: pain TECHNOLOGIST PROVIDED HISTORY: pain FINDINGS: There is no evidence of acute fracture. There is normal alignment. No acute joint abnormality. No focal osseous lesion. No focal soft tissue abnormality. IMPRESSION: No acute osseous abnormality. [facility] MEHREEN COBB MRI BRAIN WO CONTRASTon 04-03 [...] Tiffanie Hughes MD 04/24/19 Final result Normal [facility] MRI CERVICAL SPINE WO CONTRA STon [...] Tiffanie Hughes MD 04/24/19 Final result Normal [facility] Vital Signs Date Time Vital Sign Value Performing Clinician Robson henry 09-13-2021 08:22-0500 Diastolic blood pressure 86 mm[Hg] Francis MarleyWeeve Work Phone: [facility] 09-13-2021 08:22-0500 Systolic blood pressure 147 mm[Hg] Francis BeachroWeeve Work Phone: [facility] 09-13-2021 08:20-0500 Body mass index (BMI) [Ratio] 37.2 kg/m2 Francis MarleyWeeve Work Phone: [employer] 09-13-2021 08:20-0500 Body temperature 97.39 [degF] Francis BeachroVictorOps DO Work Phone: [employer] 09-13-2021 08:20-0500 Body weight 95.25 kg Francis BeachroWeeve Work Phone: [employer] 09-13-2021 08:20-0500 Heart rate 85 /min Francis MarleyWeeve Work Phone: [employer] 09-13-2021 08:20-0500 Respiratory rate 16 /min Francis MarleyWeeve Work Phone: [facility] 09-13-2021 08:20-0500 SaO2% (BldA) [Mass fraction] 99 % Francis Pinto DO Work Phone: [employer] 03-01-2021 18:28-0400 Diastolic blood pressure 96 mm[Hg] Claricordell Bach Work Phone: [employer] Work Phone: 03-01-2021 18:28-0400 Systolic blood pressure 151 mm[Hg] Clari Tim Work Phone: [employer] Work Phone: 03-01-2021 18:26-0400 Body temperature 98.71 [degF] Clari Glasgowhmann Work Phone: [employer] Work Phone: 03-01-2021 18:26-0400 Heart rate 70 /min [employer] Work Phone: [employer] Work Phone: 03-01-2021 18:26-0400 Respiratory rate 18 /min Clari [employer] Work Phone: [employer] Work Phone: 03-01-2021 18:26-0400 SaO2% (BldA) [Mass fraction] 98 % Clari [employer] Work Phone: [employer] Work Phone: 09-06-2019 20:00-0500 Body Temperature 97.9 [degF] Oscar O[place]- [place], [place] 09-06-2019 20:00-0500 BP Diastolic 100 mm[Hg] Oscar O[place] , [place] 09-06-2019 20:00-0500 BP Systolic 154 mm[Hg] [facility] [place] 09-06-2019 20:00-0500 Pulse (Heart Rate) 89 /min [facility] [place] 09-06-2019 20:00-0500 Pulse Oximetry 97 % [facility] [place] 09-06-2019 20:00-0500 Respiratory Rate 19 /min Oscar Zuniga [facility], [place] 09-04-2019 17:38-0500 BMI (Body Mass Index) 36.49 kg/m2 David Perez [facility], [place] 09-04-2019 17:38-0500 Body Temperature 98.2 [degF] [facility], [place] 09-04-2019 17:38-0500 Body weight 93.44 kg David Perez [facility], [place] 09-04-2019 17:38-0500 BP Diastolic 94 mm[Hg] David Perez [facility], [place] 09-04-2019 17:38-0500 BP Systolic 142 mm[Hg] David Perez [facility], [place] 09-04-2019 17:38-0500 Pulse (Heart Rate) 87 /min David Carter [facility], [place] 09-04-2019 17:38-0500 Pulse Oximetry 99 % David Perez [facility], [place] 09-04-2019 17:38-0500 Respiratory Rate 14 /min David Perez [facility], [place] 05-12-2019 12:15-0400 Body Temperature 98.01 [degF] [place] 05-12-2019 12:14-0400 BP Diastolic 85 mm[Hg] [place] 05-12-2019 12:14-0400 BP Systolic 152 mm[Hg] [place], [place] 05-12-2019 12:14-0400 Pulse (Heart Rate) 87 /min [place], [place] 05-12-2019 12:14-0400 Pulse Oximetry 96 % [place], [place] 05-12-2019 12:14-0400 Respiratory Rate 16 /min [place] Encounters Encounter Date Encounter Type Care Provider Facility Start: 09-27-2023 ambulatory David DIAMOND Facility :DARIAN Nicholas Start: 09-12-2023 End: 09-13-2023 ambulatory TIMOTHY WILL Not Available Start: 08-22-2023 ambulatory David DARA Facility:Marilu Schmidt Yu Start: 08-12-2023 ambulatory Lakshmi Ruiz [facility] Start: 07-06-2022 End: 07-07-2022 ambulatory RODRIGUEZ KAPLAN Facility:[facility]1 Start: 05-21-2022 End: 05-22-2022 ambulatory RODRIGUEZ KAPLAN Facility:[facility] Start: 03-19-2022 End: 03-27-2022 ambulatory RODRIGUEZ KAPLAN Facility:[facility]1 Start: 02-22-2022 End: 02-23-[address] RIKI RIOS Facility:[facility]1 Start: 09-23-2021 End: 09-23-2021 [facility] Start: 09-21-2021 End: 09-21-2021 Emergency department patient visit [facility] Start: 09-13-2021 End: 09-13-2021 Emergency department patient visit JONESBORO Indira PINTO [facility] Start: 09-13-2021 End: 09-13-2021 Emergency department patient visit Francis Ribera [facility] DO Work Phone: [facility] ED Comment on above: Sprain of right foot , initial encounter (Primary Dx); Sprain of left ankle, unspecified ligament, initial encounter Start: 05-08-2021 End: 05-11-2021 ambulatory SAHIL INTERIANO [facility] Start: 05-08-2021 End: 05-10-2021 Subsequent hospital visit by physician Karoline Meek Dr Room 4 [facility] Comment on above: Microscopic hematuri a; Flank pain; Hydronephrosis with ureteral calculus Start: 05-01-2021 End: 05-04-2021 ambulatory SAHIL INTERIANO [facility] Start: 05-01-2021 End: 05-03-2021 Subsequent hospital visit by physician Karoline Meek Dr Room 2 [facility] Comment on above: Seropositive rheumat oid arthritis (HCC) Pain Start: 03-01-2021 End: 03-01-2021 Emergency department patient visit [facility] Start: 03-01-2021 End: 03-01-2021 Emergency department patient visit Clari Tim Work Phone: [facility] ED Comment on above: Strain of right wris t, initial encounter (Primary Dx) Start: 11-07-2020 End: 11-10-2020 ambulatory SHAHRZAD ZENG [facility] Start: 11-07-2020 End: 11-09-2020 Subsequent hospital visit by physician Clari [facility] Start: 09-06-2019 End: 09-06-2019 Emergency department patient visit Oscar Zuniga Work Phone: [facility] ED Comment on above: Sprain of collateral ligament of right knee, initial encounter (Primary Dx) Start: 09-04-2019 End: 09-04-2019 Emergency department patient visit David Reynoso Perez [facility] ED Comment on above: Injury of right knee , initial encounter (Primary Dx); Effusion of right knee joint Start: 05-12-2019 End: 05-12-2019 Emergency department patient visit [facility] ED Comment on above: Contusion of left coles nd including fingers, initial encounter (Primary Dx) Start: 04-20-2019 End: 04-20-2019 Emergency department patient visit JEAN HARPER [facility] Start: 07-29-2017 End: 07-30-2017 Ambulatory Nilo Hastingsen Facility:[facility] Procedures Date Procedure Procedure Detail [...] DTaP/Tdap/Td vaccine (2 - Td or Tdap) [facility] Start: 11-28-2027 DTaP/Tdap/Td vaccine (2 - Td) DTaP/Tdap/Td vaccine (2 - Td) [place], [place] Start: 11-25-2021 End: 11-25-2021 Patient encounter procedure 11/25/2021 Office Visit Rheumatology Fatuma Mckeon MD [address] [place] [id number] [facility] Start: 06-24-2021 End: 06-24-2021 Patient encounter procedure 06/24/2021 Office Visit Rheumatology Fatuma Mckeon MD [address] [place] [address] [id number] [facility] Start: 06-03-2021 Influenza vaccination [facility] Start: 2021 Lipid panel Lipid screen [facility] Start: 06-03-2020 Influenza vaccination Flu vaccine (# 1) [place], [place] Start: 06-03-2019 Influenza vaccination Flu vaccine (# 1) [place] Start: 2016 Diabetes screen Diabetes screen [facility] Start: 2000 DTaP/Tdap/Td vaccine (1 - Tdap) DTaP/Tdap/Td vaccine (1 - Tdap) [place], [place] Start: 1996 HIV screen HIV screen [place], [place] Start: 1996 [facility] screening [facility] Start: 1994 Varicella Vaccine (1 of 2 - 13+ 2-dose series) Varicella Vaccine (1 of 2 - 13+ 2-dose series) [place], [place] Start: 1993 COVID-19 Vaccine (1) COVID-19 Vaccin e (1) [facility] Start: 1992 DTaP/Tdap/Td vaccine (1 - Tdap) DTaP/Tdap/Td vaccine (1 - Tdap) [place] Start: 1982 Varicella Vaccine (1 of 2 - 2-dose childhood series) Varicella Vaccine (1 of 2 - 2-dose childhood series) [facility] Start: 1981 Hepatitis C screening Hepatitis C sc reen [facility] End: 05-12-2019 Splint application Splint application Procedures STAT One Time for 1 Occurrences starting 05/12/2019 until 05/12/2019 [place], [place] Comment on above: One Time for 1 Occur rences starting 05/12/2019 until 05/12/2019 Immunizations Immunization Date Immunization Notes Care Provider Deisy duong 07-14-2010 influenza virus vacc ine, whole virus Clari Tim [place], [place] Payers Date Payer Category Payer Medicaid [id number] 2020 Unknown [id number] 2019 Unknown [id number] 2019 Unknown [facility] [id number] xxxxxxxxx 2019-Present [address] [address] [place] [address] xxxxxxxxx [id number] 1981 Unknown [id number] [id number] 1981 Unknown [id number] [id number]3 1981 Unknown [id number] 2.16.840.1.487911.3.579.2.173 1981 Unknown [id number] 2.16.840.1.242573.3.579.2.173 1981 Unknown [id number] 2.16.840.1.966296.3.579.2.173 1981 Unknown [id number] 2.16.840.1.743255.3.579.2.173 1981 Unknown [id number] 2.16.840.1.115032.3.579.2.173 1981 Unknown [id number] 2.16840.1.893709.3.579.2.173 1981 Unknown [id number] 2.16840.1.872769.3.579.2.173 1981 Unknown [id number] 2.840.1.781083.3.579.2.173 1981 Unknown [id number] 2.16840.1.592204.3.579.2.173 1981 Unknown [id number] 2.16840.1.945231.3.579.2.173 1981 Unknown [id number] 2.16840.1.715722.3.579.2.173 1981 Unknown [id number] 2.16840.1.392778.3.579.2.173 1981 Unknown [id number] 2.16840.1.266133.3.579.2.173 1981 Unknown [id number] 2.16840.1.712716.3.579.2.173 1981 Unknown [id number] 2.16840.1.153028.3.579.2.173 1981 Unknown [id number] 2.16840.1.801889.3.579.2.173 1981 Unknown [id number] 2.16840.1.443649.3.579.2.173 1981 Unknown [id number] 2.16.840.1.315390.3.579.2.173 1981 Unknown [id number] 2.16.840.1.115625.3.579.2.593 1981 Unknown [id number] 2.16.840.1.100669.3.579.2.593 1981 Unknown [id number] 2.16.840.1.184438.3.579.2.593 1981 Unknown [id number] 2.16.840.1.100578.3.579.2.593 1981 Unknown [id number] 2.16.840.1.413853.3.579.2.1259 1981 Unknown [id number] 2.16.840.1.482603.3.579.2.1259 1981 Unknown [id number] 2.16.840.1.159142.3.579.2.727 1959 Unknown [id number] [id number] [id number] 1959 Unknown [id number] Social History Date Type Detail Facility Start: 11-08-2014 End: 09-04-2019 Tobacco smoking status PAIS Never smoker [facility] Start: 09-04-2019 End: 03-27-2021 Alcohol intake Current non-drinker of alcohol (finding) [place], [place] Start: 10-16-2017 Alcohol Comment very reare [facility] [place] Start: 1981 Sex Assigned At Not on file [place], [place] Start: 05-12-2019 Alcohol intake No Emma [place] Start: 11-08-2014 End: 09-06-2019 Tobacco use and exposure Never used [place], [place] Exposure to SARS-CoV -2 (event) Not sure [facility] Start: 03-27-2021 Alcohol Comment very rare Emma parikh Work Phone: Clinical Note 11-11-2023 Note Date & Type Note Facility 11-11-2023 Note TC to Home number fo r [employer] referral for: Elevated Rheumatoid Factor Referral in mediator Spoke with son and provider Rheum clinic call back number. Son states he will give his father the message to return call. [facility] Consultation note 07-06-2022 Note Date & Type [...] his work. 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 He has low back pain 3/10. The [...] in office. CC: Chen Kaplan CNP [facility] Discharge instructions 09-13-2021 InstructionsAttachments Note Date & Type Note Facility 09-13-2021 Hospital Discharg e instructions Francis Pinto, - 09/13/2021 Return to the Emergency Department immediately if you develop worsening pain, numbness, weakness , or you have any other concerns. Please follow up with your orthopaeidc doctor in 2-3 days. Ice, elevate Use crutches The following attachments cannot be sent through Care Everywhere.Ankle Sprain (Polish)documented in this encounter [employer] Phone: Evaluation note Note Date & Type Note Facility Evaluation note Diagnosis Strain of right wrist, initial encounter- Primary documented in this encounter [employer] Phone: Evaluation note Note Date & Type Note Facility Evaluation note Diagnosis Seropositive rheumatoid arthritis (HCC) Rheumatoid arthritis documented in this encounter [employer] Phone: Evaluation note Note Date & Type Note Facility Evaluation note Diagnosis Pain Generalized pain documented in this encounter [employer] Phone: Evaluation note Note Date & Type Note Facility Evaluation note Diagnosis Microscopic hematuria Flank pain Abdominal pain, unspecified site Hydronephrosis with ureteral calculus Calculus of ureter documented in this encounter [employer] Phone: Evaluation note Note Date & Type Note Facility Evaluation note Diagnosis Sprain of right foot, initial encounter- Primary Sprain of left ankle, unspecified ligament, initial encounter documented in this encounter [employer] Phone: Hospital Discharge instructions Attachments Note Date & Type Note Facility Hospital Discharge instructions The following attachments cannot be sent through Care Everywhere.Strain or Sprain (Polish)documented in this encounter [employer] Phone: Summary Purpose Family History No Family History Records FoundNo Family History Records FoundNo Family History Records FoundNo Family History Records FoundNo Family History Records FoundNo Family History Records FoundNo Family History Records FoundNo Family History Records Found Advance Directives No Advanced Directives Records FoundDocuments on File Type Date Recorded 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 * Finger: Bruises (Polish) documented in this encounter* Attachments The following attachments cannot be sent through Care Everywhere. * Knee Sprain (Polish) documented in this encounter Additional Source Comments (unrecognized sect ion and content) No Status Records FoundNo Status Records FoundNo Status Records FoundNo Status Records FoundNo Status Records FoundNo Status Records FoundNo Status Records FoundNo Status Records Found INFORMATION SOURCE (unrecogn ized section and content) DATE CREATED AUTHOR 03/31/2018 [facility] DATE CREATED AUTHOR AUTHOR'S ORGANIZ ATION 04/26/2019 [facility] DATE CREATED AUTHOR AUTHOR'S ORGANIZ ATION 09/23/2021 [facility] DATE CREATED AUTHOR AUTHOR'S ORGANIZ ATION 02/16/2023 [facility] DATE CREATED AUTHOR AUTHOR'S ORGANIZ ATION 08/14/2023 [facility] DATE CREATED AUTHOR AUTHOR'S ORGANIZ ATION 09/18/2023 [facility] DATE CREATED AUTHOR AUTHOR'S ORGANIZ ATION 09/29/2023 [facility] DATE CREATED AUTHOR AUTHOR'S ORGANIZ ATION 11/13/2023 [facility] Reason for Visit (unrecogniz ed section [...] On 03/01/21 at 1915, For 1 dose 1941 (Given - Provid er: Jean Auguste RN) Scheduled Medication Order 09/11/2021 09/12/2021 09/13/2021 HYDROcodone-acetaminophen (NORCO) 5-325 MG per tablet 1 tablet (COMPLETED) 1 tablet, Oral, ONCE, On 09/13/21 at 1015, For 1 dose, Maximum dose of acetaminophen is 4000 mg from all sources in 24 hours. 1020 (Given - Provid er: Rocio Neville RN) Care Teams (unrecognized sec tion and content) Medical Insurance Claims Specialist Relationship Specialty Start Date End Date Clari Bach [address] [place] [address] PCP - General Nurse Practitioner 04/21/19 FOR [...] BE BASED ON THE PRIMARY CLINICAL RECORDS. [facility]. provides no warranty or guarantee of the accuracy or completeness of information in this document.
--- NOTE | 2023-11-27 15:14 | XR_ITS ---
The [address] [address] Patient Name: ARIADNA MONTEIRO MRN: [id number] date: 1980 Sex: M Assigned Patient Location: ER Current Patient Location: ER Accession/Order Number: [id number] Exam Date: 11/27/2023 15:29 Report Date: 11/27/2023 16:08 At the request of: YOUNG REID Procedure: XR foot RT min 3V EXAM: XR foot RT min 3V HISTORY: pain dorsum of foot. COMPARISON: None. TECHNIQUE: 3 views right foot FINDINGS: No acute displaced fracture is evident. Lisfranc joint is congruent on this nonweightbearing study. The midfoot is congruent. Partially imaged surgical changes involving the medial malleolus. Mild midfoot osteoarthritis. Achilles enthesophyte and inferior calcaneal spur are noted. XR/XR foot RT min 3V IMPRESSION: No acute osseous abnormality. Electronically authenticated by: CHASITY MCMANUS Date: 11/27/2023 16:08
--- NOTE | 2023-11-27 15:14 | XR_ITS ---
The [address] [address] Patient Name: ARIADNA MONTEIRO MRN: [id number] date: 1980 Sex: M Assigned Patient Location: ER Current Patient Location: ER Accession/Order Number: [id number] Exam Date: 11/27/2023 15:29 Report Date: 11/27/2023 16:07 At the request of: YOUNG REID Procedure: XR lumbar spine 2-3V EXAM: XR lumbar spine 2-3V HISTORY: pain lower back COMPARISON: 07/25/2023 TECHNIQUE: 3 views lumbar spine FINDINGS: 5 nonrib-bearing lumbar vertebrae. Normal lumbar lordosis without severe listhesis. Vertebral body heights are maintained. No acute displaced fracture identified. Mild degenerative disc disease and facet arthropathy at the L4-L5 and L5-S1 levels. Visualized bony pelvis is congruent. The bowel gas pattern is nonobstructive. XR/XR lumbar spine 2-3V IMPRESSION: Degenerative changes without acute osseous abnormality. Electronically authenticated by: CHASITY MCMANUS Date: 11/27/2023 16:07
--- NOTE | 2023-11-27 15:16 | ED.LOWEXI1 ---
HPI - Extremity Injury (Lower) General Chief Complaint: Extremity Injury, Lower Stated Complaint: Lower Extremity Injury Time Seen by Provider: 11/27/23 15:07 Source: patient Mode of arrival: walk-in Limitations: no limitations History of Present Illness HPI Narrative: 43-year-old male presents to the ER with concerns of right foot pain. Patient states he was doing fired yesterday and dropped a large piece of wood on his foot, was wearing his shoe. No skin injury. Remote history of pins in his right ankle. Patient states preceding this he is experiencing low back pain from repetitious bending and lifting. 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 Denies numbness or tingling radiating into his legs. Notes occasional pain into the left lateral hip and lateral thigh. no bowel or bladder incontince or ha paresthesias. Pt last took motrin yesterday. MD complaint: Reports foot injury Injury: Right: foot Place: Reports home Severity: moderate Relieving factors: Reports nothing Exacerbating factors: Reports movement Context: Reports direct blow Associated symptoms: Reports swelling; Denies tingling Other symptoms: Reports other (low back pain after llifting/ pending preceeding days.. Of concern, but not primary reason for visit.. (using motrin) ) Related Data Previous Rx's Medication Instructions Recorded ibuprofen 600 mg tablet 600 mg PO TID PRN pain #30 tabs 11/27/23 Allergies Allergy/AdvReac Type Severity Reaction Status Date / Time Penicillins Allergy Intermediate Verified 09/11/23 01:24 tramadol [From Ultram] Allergy Intermediate Verified 09/11/23 01:24 Review of Systems ROS Constitutional Denies: fever or chills Eyes Denies: change in vision or blurry vision Ears, nose, mouth, and throat Denies: throat pain or neck pain Cardiovascular Denies: chest pain or palpitations Respiratory Denies: shortness of breath or cough Gastrointestinal Denies: abdominal pain Genitourinary Denies: testicular pain Musculoskeletal Reports: back pain, extremity pain, extremity swelling and joint pain (right foot); Denies: neck pain Integumentary/Breast Denies: rash Neurological Denies: headache Psychiatric Denies: anxiety or mood swings Hematologic/Lymphatic Denies: easy bruising Allergic/Immunologic Denies: hives PFSH PFSH Social History Smoking status: Never smoker Exam Narrative Exam Narrative: Vital Signs reviewed and nurse's notes reviewed. The patient is not hypoxic. General: Alert, no acute distress, patient resting comfortably Skin: warm, intact, no pallor noted, no rash Head: Normocephalic, atraumatic Eye: Normal conjunctiva, EOMI Respiratory: No acute distress Abdomen: Normal bowel sounds, soft, nontender, no masses detected. No rebound, guarding, or rigidity noted. No midline pulsatile mass. Back: inspection of the back shows no obvious deformity, no swelling, no ecchymosis, contusion, abrasion, swelling, erythema, fluctuance or induration. No step offs or crepitus noted. No CVA tenderness noted bilaterally. Tenderness noted to Paravertebral lower lumbar sacral junction.Myofascial tenderness noted. No midline bony tenderness. . Straight leg raise on left is Negative. Straight leg raise on right is Negative. Musculoskeletal: No deformity noted to bilateral lower extremities. + tenderness to 2nd tow and 2nd / 3rd MT. remote scar to ankle. no heel pain . no obvious hematoma or nail injury. no cyanosis or mottling noted. normal pulses at DP and PT 2+ bilaterally and symmetrically. Normal 5/5 strength at ankles with dorsiflexion and plantar flexion. Patient is able to ambulate. Normal sensation noted to the bilateral lower extremities. Neurological: alert and oriented x4, normal sensory and motor observed. DTR 2+ at patellar and achilles bilaterally. Psychiatric: Cooperative Constitutional Vital Signs, click to edit/add: Last Vital Signs Temp 98 F 11/27/23 14:59 Pulse 93 H 11/27/23 14:59 Resp 20 11/27/23 14:59 BP 166/91 H 11/27/23 14:59 Pulse Ox 97 11/27/23 14:59 O2 Del Method Room Air 11/27/23 14:59 Course Vital Signs Vital signs: Vital Signs Temperature 98 F 11/27/23 14:59 Pulse Rate 93 H 11/27/23 14:59 Respiratory Rate 11/27/23 14:59 Blood Pressure 166/91 H 11/27/23 14:59 Pulse Oximetry 97 11/27/23 14:59 Oxygen Delivery Method Room Air 11/27/23 14:59 Temperature 98 F 11/27/23 14:59 Pulse Rate 93 H 11/27/23 14:59 Respiratory Rate 20 11/27/23 14:59 Blood Pressure 166/91 H 11/27/23 14:59 Pulse Oximetry 97 11/27/23 14:59 Oxygen Delivery Method Room Air 11/27/23 14:59 MDM - Extremity Injury (Lower) MDM Narrative Medical decision making narrative: The patient was noted to be grossly neurologically intact. The patient was treated with adequate analgesia here in the emergency department. The patient vital signs were reviewed in the patient had no neurologic deficit noted. Due to the nature of the patient's history of present illness and the benign physical exam Xray preformed on right foot and lower back. The patient is to followup in the next 3-5 days for repeat evaluation or to return to the emergency department if symptoms worsen or new symptoms develop. The patient will be discharged home with adequate analgesia. The patient has no other questions or concerns at this time. 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 pt will contact pcp to discuss possible therapy referral for back. cont ice and motrin 600mg . Imaging Data l/s spine and (R) foot. : Radiologist's impression: ITS Impressions Foot X-Ray 11/27/23 15:14 IMPRESSION: No acute osseous abnormality. Electronically authenticated by: CHASITY MCMANUS Date: 11/27/2023 16:08 Lumbar Spine X-Ray 11/27/23 15:14 IMPRESSION: Degenerative changes without acute osseous abnormality. Electronically authenticated by: CHASITY MCMANUS Date: 11/27/2023 16:07 Discharge Plan Discharge Chief Complaint: Extremity Injury, Lower Clinical Impression: Low back strain, Acute pain of right foot, Contusion of right foot Patient Disposition: Home, Self-Care Time of Disposition Decision: 16:13 Condition: Good Prescriptions / Home Meds: New ibuprofen 600 mg tablet 600 mg PO TID PRN (Reason: pain) Qty: 30 0RF Instructions: Low Back Strain (ED), Foot Contusion (ED), Lower Back Exercises (ED) Stand Alone Forms: Portal Instructions Referrals: RODRIGUEZ KAPLAN [Primary Care Provider] - 1 week Tung Alexander DPM [Physician] - As soon as possible
[2023-11-27] MEDS: KETOROLAC TROMETHAMINE 60 MG/2 ML VIAL IM (15:33)
[2023-11-27 16:26] VITALS: BP 123/96; PULSE 87; RESP 16; O2SAT 95
== END 2023-11-27 16:28 | disposition home or self-care (01) ==
PROVIDERS: Emergency Provider Emergency Medicine; PCP Nurse Practitioner Family
DX: S90.31XA Contusion of right foot, initial encounter (principal); S39.012A Strain of muscle, fascia and tendon of lower back, initial encounter; X50.3XXA Overexertion from repetitive movements, initial encounter; W22.8XXA Striking against or struck by other objects, initial encounter
CPT/HCPCS: 72100; 73630; 96372; 99285; J1885

== ENCOUNTER 2023-12-12 14:27 | Outpatient (OUT) | payer MEDICAID, SELFPAY ==
[2023-12-12 14:56] LABS: Uric Acid 9.4 mg/dL (3.5-7.2)
[2023-12-12 15:04] LABS: Erythrocyte Sedimentation Rate 17 mm/hr (<=15)
== END 2023-12-12 14:28 | disposition home or self-care (01) ==
LOC: LAB 14:30
PROVIDERS: PCP Nurse Practitioner Family; Visit Provider Nurse Practitioner Family
DX: M10.9 Gout, unspecified (principal)
CPT/HCPCS: 36415; 84550; 85652

== ENCOUNTER 2024-01-14 22:44 | Emergency (ER) | payer MEDICAID, SELFPAY ==
[2024-01-14 22:46] VITALS: BP 158/100; PULSE 76; TEMP 36.6; O2SAT 97; BMI 36.5
--- OUTSIDE RECORDS SUMMARY | 2024-01-14 22:51 | XMS_ITS | CCD ---
Author Organization [facility] Care Team Providers Care Manager Of Sustainability Name Role Phone Nilo Mendez Unavailable Unavailable JEAN HARPER Primary Care Unavailable KENYATTA KEN Attending Unavailable SANDOVALRI, ARTEMIO Consulting Unavailable Tim, Clari A Primary Care Provider [phone] Tim, Clari A Primary Care Provider [phone] Tim, Clari A Primary Care Provider TIM, CLARI A Primary Care Unavailable YARITZA HENSLEY Referring Unavailable TIM, CLARI A Primary Care Unavailable TIM, CLARI A Primary Care Unavailable SAHIL INTERIANO R Referring Unavailable TIM, CLARI A Primary Care Unavailable SAHIL INTERIANO R Referring Unavailable INTERIANOSAHIL R Referring Unavailable TIM, CLARI A Primary Care Unavailable YARITZA HENSLEY Referring Unavailable TIM, CLARI A Primary Care Unavailable TIM, CLARI A Primary Care Unavailable TIM, CLARI A Primary Care Unavailable SAHIL INTERIANO R Referring Unavailable TIM, CLARI A Primary Care Unavailable INTERIANOSAHIL R Referring Unavailable FATUMA MCKEON Referring Unavailable TIM, CLARI A Primary Care Unavailable INTERIANO SAHIL R Referring Unavailable TIM, CLARI A Primary Care Unavailable INTERIANO SAHIL R Referring Unavailable TIM, CLARI A Primary Care Unavailable INTERIANO SAHIL R Referring Unavailable TIM, CLARI A Primary Care Unavailable TIM, CLARI A Primary Care Unavailable INTERIANO, SAHIL R Referring Unavailable TIM, CLARI A Primary Care Unavailable INTERIANO SAHIL R Referring Unavailable TIM, CLARI A Primary Care Unavailable INTERIANO SAHIL R Referring Unavailable INTERIANO SAHIL R Referring Unavailable TIM, CLARI A [...] Unavailable ZIEBER, DR RIKI Loera Consulting Unavailable ZIEBGILBERT, DR RIKI Loera Consulting Unavailable EUSEBIO, RODRIGUEZ Attending Unavailable EUSEBIO, RODRIGUEZ Admitting Unavailable TIM, CLARI Primary Care Unavailable EUSEBIO, RODRIGUEZ Consulting Unavailable EUSEBIO, RODRIGUEZ Admitting Unavailable EUSEBIO, RODRIGUEZ Attending Unavailable EUSEBIO, RODRIGUEZ Primary Care Unavailable Lakshmi Ruiz DDS Attending Unavailable David DIAMOND Attending Unavailable EUSEBIO, RODRIGUEZ S Referring Unavailable APLING, TIMOTHY B Attending Unavailable APLING, TIMOTHY B Referring Unavailable APLING, TIMOTHY B Referring Unavailable APLING, TIMOTHY B Attending Unavailable APLING, TIMOTHY B Attending Unavailable APLING, TIMOTHY B Attending Unavailable APLING, TIMOTHY B Referring Unavailable Allergies Allergy Classification Reported Allergen(s) Allergy Type Date of Onset Reaction(s) Facility Opioid Agonists (13 sources) traMADol Drug Allergy 6 [facility] Penicillins (antibiotic) (13 sources) Penicillins Drug Allergy 1 [facility] (6 sources) Penicillins; Translations: [penicillins] Propensity to adverse reactions to drug 1 [place] (5 sources) traMADol Drug Allergy 6 [place] (1 source) Penicillin Drug Allergy 8 [facility] Repository (2 sources) traMADol; Translations: [Ultram] Drug Allergy [facility] Medications Current Medications Medication Drug Class(es) [...] Facility Physician Referralon 023 Physician Referral [phone] [id number] Normal [facility] MRI LSPINE WO CONon 05-21-20 22 [...] by: MICHAEL RAE Date: 2022-05-21 18:38 Normal [facility] XR FOREIGN BODY EYEon 2021 XR FOREIGN BODY EYE EXAMINATION: XR FOREIGN BODY EYE HISTORY: Foreign body in eye COMPARISON: No relevant comparison available. FINDINGS: ORBITS: Negative for a metallic foreign body. OTHER: Negative. IMPRESSION: 1. No metallic foreign body within the orbits. Electronically authenticated by: RIKI RIOS Date: 2022-05-21 10:36 Normal [facility] XR LSPINE MIN 4 VIEWSon 02-01 [...] lower lumbar spine; slightly progressed compared to 2016. Electronically authenticated by: RIKI RIOS Date: 2022-02-22 11:06 Normal [facility] CBC with Diffon 09-23-2021 Abs. Basophil 0.02 k/uL Normal 0.0-0.2 [facility] Comment on above: Performed By: #### C ELOY LOPEZ, IPF ####[address] [place] [address] Lab Director: Michael Meyer MD Abs.Imm.Granulocyte 0.02 k/uL Normal 0.00-0.30 [facility] Comment on above: Performed By: #### C ELOY LOPEZ, IPF ####[facility] [place] [address] Lab Director: Michael Meyer MD Abs.Neutrophil (Seg) 1.28 k/uL Low 1.50-8.10 [facility] Comment on above: Performed By: #### C ELOY LOPEZ, IPF ####[facility] [place] [address] Lab Director: Michael Meyer MD Basophils/100 WBC (Bld) 1 % Normal 0-2 M [facility] Comment on above: Performed By: #### C JESSICA CP, IPF ####[address] , [place] [address] Lab Director: Michael Meyer MD Eosinophils (Bld) [#/Vol] 0.00 10*3/uL Normal 0.00-0.44 [facility] Comment on above: Performed By: #### C JESSICA, CP, IPF ####[address] [place] [address] Lab Director: Michael Meyer MD Eosinophils/100 WBC (Bld) 0 % Low 1-4 [facility] Comment on above: Performed By: #### C JESSICA CP, IPF ####[address] [place] [address] Lab Director: Michael Meyer MD Immature granulocytes/100 WBC (Bld) 1 % High 0 [facility] Comment on above: Performed By: #### C ELOY LOPEZ, IPF ####[address] [place] [address] Lab Director: Michael Meyer MD Lymphocytes (Bld) [#/Vol] 0.73 10*3/uL Low 1.10-3.70 [facility] Comment on above: Performed By: #### C JESSICA CP, IPF ####[address] [place] [address] Lab Director: Michael Meyer MD Lymphocytes/100 WBC (Bld) 33 % Normal 24-43 [facility] Comment on above: Performed By: #### C JESSICA CP, IPF ####[address] , [place] [id number] Lab Director: Michael Meyer MD Monocytes (Bld) [#/Vol] 0.15 10*3/uL Normal 0.10-1.20 [facility] Comment on above: Performed By: #### C DP, CP, IPF ####[address] [place] [address] Lab Director: Michael Meyer MD Monocytes/100 WBC (Bld) 7 % Normal 3-12 M [facility] Comment on above: Performed By: #### C DP, CP, IPF ####[address] , [facility] Lab Director: Michael Meyer MD Morphology Fernando (Bld) [Interp] Platelet scan shows Normal Platelets Normal [facility] Comment on above: Performed By: #### C DP, CP, IPF ####[address] [place] [address] Lab Director: Michael Meyer MD Neutrophil (Seg) 58 % Normal 36-65 [facility] Comment on above: Performed By: #### C DP, CP, IPF ####[address] [place] [address] Lab Director: Michael Meyer MD Erythrocyte distribution width (RBC) [Ratio] 11.2 % Low 11.8-14.4 [facility] Comment on above: Performed By: #### C DP, CP, IPF ####[address] , [place] [address])[phone] Director: Michael Meyer MD Hematocrit (Bld) [Volume fraction] 46.3 % Normal 40.7-50.3 [facility] Comment on above: Performed By: #### C DP, CP, IPF ####[address] , [place] 136[address] Lab Director: Michael Meyer MD Hemoglobin (Bld) [Mass/Vol] 15.6 g/dL Normal 13.0-17.0 [facility] Comment on above: Performed By: #### C DP, CP, IPF ####[address] , [place] [address] Lab Director: Michael Meyer MD MCH (RBC) [Entitic mass] 28.5 pg Normal 25.2-33.5 [facility] Comment on above: Performed By: #### C DP, CP, IPF ####[address] , [facility]83419)[phone] Director: Michael Meyer MD MCHC (RBC) [Mass/Vol] 33.7 g/dL Normal 28.4-34.8 [facility] Comment on above: Performed By: #### C DP, CP, IPF ####[address] , [facility]83419)[phone] Director: Michael Meyer MD MCV (RBC) [Entitic vol] 84.6 fL Normal 82.6-102.9 M [facility] Comment on above: Performed By: #### C DP, CP, IPF ####[address] , [facility]83419)[phone] Director: Michael Meyer MD NRBC Automated 0.0 per 100 WBC Normal 0.0 [facility] Comment on above: Performed By: #### C DP, CP, IPF ####[address] , [facility] lab Director: Michael Meyer MD Platelet Count See Reflexed IPF Result Normal 138-453 [facility] Comment on above: Performed By: #### C DP, CP, IPF ####[address] , [place] [address] lab Director: Michael Meyer MD RBC (Bld) [#/Vol] 5.47 10*6/uL Normal 4.21-5.77 [facility] Comment on above: Performed By: #### C DP, CP, IPF ####[address] [phone] Director: Michael Meyer MD WBC (Bld) [#/Vol] 2.2 10*3/uL Low 3.5-11.3 [facility] Comment on above: Performed By: #### C DP, CP, IPF ####[address] [place] [address] Lab Director: Michael Meyer MD Auto Diff Performed NOT REPORTED Normal [facility] Comment on above: Performed By: #### C DP, CP, IPF ####[address] , [place] [phone] Director: Michael Meyer MD MPV NOT REPORTED Normal 8.1-13.5 [facility] Comment on above: Performed By: #### C DP, CP, IPF ####[address] [place] [address] Lab Director: Michael Meyer MD Platelet Comment NOT REPORTED Normal [facility] Comment on above: Performed By: #### C DP, CP, IPF ####[address] [place] [address] Lab Director: Michael Meyer MD RBC morphology finding Nom (Bld) NOT REPORTED Normal [facility] Comment on above: Performed By: #### C DP, CP, IPF ####[address] [place] [address] Lab Director: Michael Meyer MD WBC Morphology NOT REPORTED Normal [facility] Comment on above: Performed By: #### C DP, CP, IPF ####[address] , [place] [address] Lab Director: Michael Meyer MD Comp Metabolic Profon 2020 (cont.) Normal [facility] Comment on above: Result Comment: Aver age GFR for 40-49 years old: 99 mL/min/1.73sq m Chronic Kidney Disease: <60 mL/min/1.73sq m Kidney failure: <15 mL/min/1.73sq m eGFR calculated using average adult body mass. Additional eGFR calculator available at: http://www.[employer]/multiple_crcl_2012.htm Performed By: #### C DP, CP, IPF ####[address] [place] [address] Lab Director: Michael Meyer MD Albumin [Mass/Vol] 4.1 g/dL Normal 3.5-5.2 [facility] Comment on above: Performed By: #### C DP, CP, IPF ####[address] [place] [address] Lab Director: Michael Meyer MD Albumin/Glob Ratio 1.1 Normal 1.0-2.5 [facility] Comment on above: Performed By: #### C DP, CP, IPF ####[address] [place] [address] Lab Director: Michael Meyer MD Alkaline Phos 87 U/L Normal 40-129 [facility] Comment on above: Performed By: #### C DP, CP, IPF ####[address] , [place] [phone] Director: Michael Meyer MD ALT [Catalytic activity/Vol] 65 U/L High 5-41 [facility] Comment on above: Performed By: #### C DP, CP, IPF ####[address] [place] [address] Lab Director: Michael Meyer MD Anion gap [Moles/Vol] 13 mmol/L Normal 9-17 [facility] Comment on above: Performed By: #### C DP, CP, IPF ####[address] , [place] [phone] Director: Michael Meyer MD AST [Catalytic activity/Vol] 68 U/L High <40 [facility] Comment on above: Performed By: #### C DP, CP, IPF ####[address] , [place] 1025483 Lab Director: Michael Meyer MD Bilirubin [Mass/Vol] 0.52 mg/dL Normal 0.3-1.2 [facility] Comment on above: Performed By: #### C DP, CP, IPF ####[address] [place] [address] Lab Director: Michael Meyer MD BUN/CRE Ratio 8 Low 9-20 [facility] Comment on above: Performed By: #### C DP, CP, IPF ####[address] [place] [address] Lab Director: Michael Meyer MD Calcium [Mass/Vol] 8.8 mg/dL Normal 8.6-10.4 [facility] Comment on above: Performed By: #### C DP, CP, IPF ####[address] [place] [address] Lab Director: Michael Meyer MD Chloride [Moles/Vol] 100 mmol/L Normal 98-107 [facility] Comment on above: Performed By: #### C DP, CP, IPF ####[address] [place] [address] Lab Director: Michael Meyer MD CO2 [Moles/Vol] 23 mmol/L Normal 20-31 [facility] Comment on above: Performed By: #### C DP, CP, IPF ####[address] , [place] 37[address] Lab Director: Michael Meyer MD Creatinine [Mass/Vol] 1.55 mg/dL High 0.70-1.20 [facility] Comment on above: Performed By: #### C DP CP, IPF ####[address] [place] [address] Lab Director: Michael Meyer MD GFR, Amer >60 Normal >60 [facility] Comment on above: Performed By: #### C DP, CP, IPF ####[facility] [place] [address] Lab Director: Michael Meyer MD GFR,non Amer 50 mL/min Low >60 [facility] Comment on above: Performed By: #### C DP, CP, IPF ####[address] [place] [address] Lab Director: Michael Meyer MD Glucose [Mass/Vol] 94 mg/dL Normal 70-99 [facility] Comment on above: Performed By: #### C DP, CP, IPF ####[address] [place] [address] Lab Director: Michael Meyer MD Potassium [Moles/Vol] 3.9 mmol/L Normal 3.7-5.3 [facility] Comment on above: Performed By: #### C DP, CP, IPF ####[address] [place] [address] Lab Director: Michael Meyer MD Protein [Mass/Vol] 7.9 g/dL Normal 6.4-8.3 [facility] Comment on above: Performed By: #### C DP, CP, IPF ####[address] [place] [address] Lab Director: Michael Meyer MD Sodium [Moles/Vol] 136 mmol/L Normal 135-144 [facility] Comment on above: Performed By: #### C DP, CP, IPF ####[address] [place] [address] Lab Director: Michael Meyer MD Staging: Normal [facility] Comment on above: Result Comment: Stag e 1: Some kidney damage normal GFR Stage 2: Mild kidney damage GFR 60-89 Stage 3: Moderate kidney damage GFR 30-59 Stage 4: Severe kidney damage GFR 15-29 Stage 5: Severe kidney damage GFR <15 ESRD - chronic treatment by dialysis or transplant Performed By: #### C JESSICA CP, IPF ####[address] , [place] 824[address]83 [facility] Director: Michael Meyer MD Urea nitrogen [Mass/Vol] 13 mg/dL Normal 6-20 [facility] Comment on above: Performed By: #### C ELOY LOPEZ, IPF ####[address] [place], [place] [address] [facility] Director: Michael Meyre MD Lactic Acidon 09-23-2021 Lactate [Moles/Vol] 0.9 mmol/L Normal 0.5-2.2 [facility] Comment on above: Performed By: #### L ACTIC ####[address] , [place] [id number] [facility] Director: Michael Meyer MD Lactic Acid,Whole Bl NOT REPORTED Normal 0.7-2.1 [facility] Comment on above: Performed By: #### L ACTIC ####[address] , [place] 60[address] [facility] Director: Michael Meyer MD PLT, Immature Fract.on 09-23 Platelet, Fluoresc. 42 k/uL Low 138-453 [facility] Comment on above: Performed By: #### C ELOY LOPEZ, IPF #### [address] [place], [place] 190[address]83 [employer]: Michael Meyer MD PLT, Immature Fract. 1.2 % Normal 1.1-10.3 [facility] Comment on above: Performed By: #### C JESSICA, CP, IPF #### [address] [place], [place] [address]83 [employer]: Michael Meyer MD XR CHEST (SINGLE VIEW [...] Julio C Calderón 09/22/21 Final result Normal [facility] Resp Viral Panelon 1 Adenovirus Not detected Normal [facility] Comment on above: Performed By: #### R PRODUCT DEVELOPMENT COORDINATOR ####[place] [address] [place] [address] Lab Director: Juan R Tang[address] [place], [place] [address] Lab Director: Michael Meyer MD Bordet.parapertussis Not detected Normal [facility] Comment on above: Performed By: #### R PRODUCT DEVELOPMENT COORDINATOR ####[facility] [address] [place] [address] Lab Director: Juan R Tang[address] [place] [address] Lab Director: Michael Meyer MD Bordetella pertussis Not detected Normal [facility] Comment on above: Performed By: #### R PRODUCT DEVELOPMENT COORDINATOR ####[facility] [address] [place] [address] Lab Director: Juan R Tang[address] [place], [place] 8385[address] Lab Director: Michael Meyer MD Chlamyd.pneumoniae Not detected Normal [facility] Comment on above: Performed By: #### R PRODUCT DEVELOPMENT COORDINATOR ####[facility] [address] [place] [address] Lab Director: [facility] [place] [address] Lab Director: Michael Meyer MD Coronavirus 229E Not detected Normal [facility] Comment on above: Performed By: #### R PRODUCT DEVELOPMENT COORDINATOR ####[facility] [address] [place] [address] Lab Director: Juan R Tang[address] [place] [address] Lab Director: Michael Meyer MD Coronavirus HKU1 Not detected [facility] Comment on above: Performed By: #### R PRODUCT DEVELOPMENT COORDINATOR ####[address] [address] Lab Director: Juan R Tang[address] [place] [phone] Director: Michael Meyer MD Coronavirus NL63 Not detected [facility] Comment on above: Performed By: #### R PRODUCT DEVELOPMENT COORDINATOR ####[facility] [place] [address] Lab Director: Juan R Tang[address] [place] [address] Lab Director: Michael Meyer MD Coronavirus OC43 Not detected [facility] Comment on above: Performed By: #### R PRODUCT DEVELOPMENT COORDINATOR ####[facility] [address] [place] [address] Lab Director: Juan R Tang[address] [place] [address] Lab Director: Michael Meyer MD Human Metapneumo Not detected Normal [facility] Comment on above: Performed By: #### R PRODUCT DEVELOPMENT COORDINATOR ####[facility] [address] [place] [address] Lab Director: Juan R [facility] [place] [address] Lab Director: Michael Meyer MD Influenza A Not detected [facility] Comment on above: Performed By: #### R PRODUCT DEVELOPMENT COORDINATOR ####[facility] [address] [place], [place] [phone] Director: Juan R [facility] [place] [address] Lab Director: Michael Meyer MD Influenza B Not detected [facility] Comment on above: Performed By: #### R PRODUCT DEVELOPMENT COORDINATOR ####[facility] [address] [place] [address] Lab Director: Juan R Tang[address] [place] [address] Lab Director: Michael Meyer MD Mycoplas.pneumoniae Not detected [facility] Comment on above: Result Comment: Perf ormed by multiplexed nucleic acid assay. Performed By: #### R PRODUCT DEVELOPMENT COORDINATOR ####[facility] [address] [place], [place] [phone])[phone] Director: Juan R Tnag[address] [place] [address] Lab Director: Michael Meyer MD Parainfluenza 1 Not detected [facility] Comment on above: Performed By: #### R PRODUCT DEVELOPMENT COORDINATOR ####[facility] [address] [place], [place] [phone])[phone] Director: Juan R Tang[address] [place] [address] Lab Director: Michael Meyer MD Parainfluenza 2 Not detected Normal [facility] Comment on above: Performed By: #### R PRODUCT DEVELOPMENT COORDINATOR ####[facility] [address] [place] [address] Lab Director: Juan R Tang[address] [place] [address] Lab Director: Michael Meyer MD Parainfluenza 3 Not detected Normal [facility] Comment on above: Performed By: #### R PRODUCT DEVELOPMENT COORDINATOR ####[facility] [address] [place], [place] [phone])[phone] Director: Juan R Tang[address] [place] [address] Lab Director: Michael Meyer MD Parainfluenza 4 Not detected Normal [facility] Comment on above: Performed By: #### R PRODUCT DEVELOPMENT COORDINATOR ####[facility] [address] [place] [address] Lab Director: Juan R Tang[address] [place] [address] Lab Director: Michael Meyer MD Resp Syncytial Virus Not detected Normal [facility] Comment on above: Performed By: #### R PRODUCT DEVELOPMENT COORDINATOR ####[facility] [address] [place], [place] [phone] Director: Juan R Tang[address] [place] [address] Lab Director: Michael Meyer MD Rhino/Enterovirus Not detected Normal [facility] Comment on above: Performed By: #### R PRODUCT DEVELOPMENT COORDINATOR ####[facility] [address] [place] [address] Lab Director: Juan R Tang[address] [place] [address] Lab Director: Michael Meyer MD SARS-CoV-2 (COVID-19) RNA LYNDON+probe Ql (Unsp spec) Detected Abnormal [facility] Comment on above: Result Comment: Resu lts reported to the appropriate Health Department Performed By: #### R PRODUCT DEVELOPMENT COORDINATOR ####[facility] [address] [place], [place] [phone] Director: Juan R Tang[address] [place] [address] Lab Director: Michael Meyer MD Resp Viral Panelon 1 Source: .NASOPHARYNGEAL SWAB Normal [facility] Comment on above: Performed By: #### R PRODUCT DEVELOPMENT COORDINATOR ####[facility] [address] [place], [place] [phone])[phone] Director: Juan R Tang[address] [place] [address] Lab Director: Michael Meyer MD Influenza A H1 NOT REPORTED Normal [facility] Comment on above: Performed By: #### R PRODUCT DEVELOPMENT COORDINATOR ####[facility] [address] [place], [place] [id number])[phone] Director: Juan R Tang[address] [place] [address] Lab Director: Michael Meyer MD Influenza A H1-2009 NOT REPORTED Normal [facility] Comment on above: Performed By: #### R PRODUCT DEVELOPMENT COORDINATOR ####[facility] [address] [place], [place] [phone] Director: Juan R Tang[address] [place] [address] Lab Director: Michael Meyer MD Influenza A H3 NOT REPORTED Normal [facility] Comment on above: Performed By: #### R PRODUCT DEVELOPMENT COORDINATOR ####[facility] [address] [place], [place] [phone] Director: Juan R Tang [facility] [place] [address] lab Director: Michael Meyer MD No Panel Informationon 09-13 No acute findings. [facility] EXAMINATION: THREE XRAY VIEWS OF THE RIGHT ANKLE; THREE XRAY VIEWS OF THE LEFT FOOT 09/13/2021 9:16 am COMPARISON: None. HISTORY: ORDERING SYSTEM PROVIDED HISTORY: Pain TECHNOLOGIST PROVIDED HISTORY: Pain FINDINGS: No acute fracture demonstrated. 2 threaded screws noted medial malleolus from repair prior injury. Alignment anatomic. Small plantar and dorsal calcaneal spurs present. Lqmb-iz-pymymrmo degenerative change primarily midfoot. Overall alignment anatomic. Soft tissues unremarkable. [facility] Jeronimo Art DO - 09/13/2021 EXAMINATION: THREE XRAY VIEWS OF THE RIGHT ANKLE; THREE XRAY VIEWS OF THE LEFT FOOT 09/13/2021 9:16 am COMPARISON: None. HISTORY: ORDERING SYSTEM PROVIDED HISTORY: Pain TECHNOLOGIST PROVIDED HISTORY: Pain FINDINGS: No acute fracture demonstrated. 2 threaded screws noted medial malleolus from repair prior injury. Alignment anatomic. Small plantar and dorsal calcaneal spurs present. Vfgs-bp-urbpkfag degenerative change primarily midfoot. Overall alignment anatomic. Soft tissues unremarkable. IMPRESSION: No acute findings. [facility] [employer] Work Phone: [facility] [employer] Work Phone: No acute findings. [facility] EXAMINATION: THREE XRAY VIEWS OF THE RIGHT FOOT; THREE XRAY VIEWS OF THE LEFT ANKLE 09/13/2021 9:14 am COMPARISON: None. HISTORY: ORDERING SYSTEM PROVIDED HISTORY: pain TECHNOLOGIST PROVIDED HISTORY: pain FINDINGS: No acute fracture demonstrated. Alignment is anatomic. 2 threaded screws noted within the medial malleolus. Vdtj-ne-zqkklmcy degenerative change primarily midfoot. Small plantar and dorsal calcaneal spurs present. Soft tissues unremarkable. [facility] Jeronimo Art DO - 09/13/2021 EXAMINATION: THREE XRAY VIEWS OF THE RIGHT FOOT; THREE XRAY VIEWS OF THE LEFT ANKLE 09/13/2021 9:14 am COMPARISON: None. HISTORY: ORDERING SYSTEM PROVIDED HISTORY: pain TECHNOLOGIST PROVIDED HISTORY: pain FINDINGS: No acute fracture demonstrated. Alignment is anatomic. 2 threaded screws noted within the medial malleolus. Rwns-ug-jyueukia degenerative change primarily midfoot. Small plantar and dorsal calcaneal spurs present. Soft tissues unremarkable. IMPRESSION: No acute findings. [employer] Phone: No Panel InformationOrdered By: Jeronimo Art on 09-13-2021 [employer] Phone: XR ANKLE LEFT (MIN 3 VIEWS)o n 09-13-2021 XR ANKLE LEFT (MIN 3 VIEWS) EXAMINATION: THREE XRAY VIEWS OF THE RIGHT FOOT; THREE XRAY VIEWS OF THE LEFT ANKLE 09/13/2021 9:14 am COMPARISON: None. HISTORY: ORDERING SYSTEM PROVIDED HISTORY: pain TECHNOLOGIST PROVIDED HISTORY: pain FINDINGS: No acute fracture demonstrated. Alignment is anatomic. 2 threaded screws noted within the medial malleolus. Ccra-la-qqotnmhn degenerative change primarily midfoot. Small plantar and dorsal calcaneal spurs present. Soft tissues unremarkable. IMPRESSION: No acute findings. Interpreted by: Jeronimo Art DO Signed by: Jeronimo Art DO 09/13/21 Final result Normal [facility] Radiology Study observation (narrative) Emma Ford [employer] Phone: XR ANKLE RIGHT (MIN 3 VIEWS) [...] Small plantar and dorsal calcaneal spurs present. Eqcu-qn-cchodhjn degenerative change primarily midfoot. Overall alignment anatomic. Soft tissues unremarkable. IMPRESSION: No acute findings. Interpreted by: Jeronimo Art DO Signed by: Jeronimo Art DO 09/13/21 Final result Normal [facility] [place] Radiology Study observation (narrative) Emma Ford [employer] Work Phone: XR FOOT LEFT (MIN 3 VIEWS)on [...] Small plantar and dorsal calcaneal spurs present. Qjqz-tj-fxauomvn degenerative change primarily midfoot. Overall alignment anatomic. Soft tissues unremarkable. IMPRESSION: No acute findings. Interpreted by: Jeronimo Art DO Signed by: Jeronimo Art DO 09/13/21 Final result Normal [facility] Radiology Study observation (narrative) Emma [employer]alta Work [...] threaded screws noted within the medial malleolus. Plrh-aq-coipmubp degenerative change primarily midfoot. Small plantar and dorsal calcaneal spurs present. Soft tissues unremarkable. IMPRESSION: No acute findings. Interpreted by: Jeronimo Art DO Signed by: Jeronimo Art DO 09/13/21 Final result Normal [facility] [place] Radiology Study observation (narrative) Emma [employer] Work [...] Kerri Scott MD 05/08/21 Final result Normal [facility] XR ABDOMEN (KUB) (SINGLE AP VIEW)Ordered By: Sahil Interiano on 05-08-2021 Nonobstructive bowel gas pattern. No radiodensities diagnostic of nephroliths. [employer] Phone: EXAMINATION: ONE SUPINE XRAY VIEW(S) OF THE ABDOMEN 05/08/2021 10:35 am COMPARISON: 01 May 2021 HISTORY: ORDERING SYSTEM PROVIDED HISTORY: Microscopic hematuria FINDINGS: The bowel gas pattern is non obstructive. No organomegaly, free air or abnormal calcifications are noted. Mild levo scoliotic curvature is present. [employer] Phone: [place], pn Incoming Radiant Results From [employer] - 05/08/2021 2:06 PM EDT EXAMINATION: ONE SUPINE XRAY VIEW(S) OF THE ABDOMEN 05/08/2021 10:35 am COMPARISON: 01 May 2021 HISTORY: ORDERING SYSTEM PROVIDED HISTORY: Microscopic hematuria FINDINGS: The bowel gas pattern is non obstructive. No organomegaly, free air or abnormal calcifications are noted. Mild levo scoliotic curvature is present. IMPRESSION: Nonobstructive bowel gas pattern. No radiodensities diagnostic of nephroliths. [employer] Phone: [employer] Phone: No Panel InformationOrdered By: Fatuma Mckeon on 05-01-2021 1. No acute osseous abnormality of the right ankle. Posttraumatic and postsurgical changes as above. Mild tibiotalar joint osteoarthritis. 2. Acute osseous abnormality of the right foot. Chronic appearing well-defined erosion or subchondral cyst at the base of the 3rd metatarsal without associated joint space loss. This is a nonspecific finding. [employer] Phone: EXAMINATION: THREE XRAY VIEWS OF THE [...] base of the 3rd metatarsal is nonspecific. [employer] Phone: [place], pn Incoming Radiant Results From [employer] - 05/01/2021 5:46 PM EDT EXAMINATION: THREE [...] space loss. This is a nonspecific finding. [employer] Phone: [employer] Phone: Unremarkable left wrist/left hand series. There are no plain radiographic findings to suggest an active synovial process of bone as rheumatoid arthritis [employer] Phone: EXAMINATION: 2 XRAY VIEWS OF THE LEFT WRIST; TWO XRAY VIEWS OF THE LEFT HAND 05/01/2021 11:10 am COMPARISON: None. HISTORY: ORDERING SYSTEM PROVIDED HISTORY: Seropositive rheumatoid arthritis (HCC) FINDINGS: The bones and joints are unremarkable without definite fracture, dislocation, significant degenerative/erosi ve change, radiopaque foreign body, abnormal soft tissue calcification or bony destructive lesion [employer] Phone: [place], [facility] Incoming Radiant Results From [employer] - 05/01/2021 11:26 AM EDT EXAMINATION: 2 [...] synovial process of bone as rheumatoid arthritis [employer] Phone: [employer] Phone: XR ABDOMEN (KUB) (SINGLE AP VIEW)on [...] Linda Albarran MD 05/01/21 Final result Normal [facility] XR ABDOMEN (KUB) (SINGLE AP VIEW)Ordered By: Sahil Interiano on 05-01-2021 No significant radiographic abnormality in the abdomen. [employer] Phone: EXAMINATION: ONE SUPINE XRAY VIEW(S) OF THE ABDOMEN 05/01/2021 10:51 am COMPARISON: None. HISTORY: ORDERING SYSTEM PROVIDED HISTORY: Pain FINDINGS: Nonobstructive bowel gas pattern. No abnormal calcifications overlying the gallbladder urinary tract. No mass effect. Osseous structures grossly intact. [employer] Phone: [place], [facility] Incoming Radiant Results From [employer] - 05/01/2021 11:21 AM EDT EXAMINATION: ONE SUPINE XRAY VIEW(S) OF THE ABDOMEN 05/01/2021 10:51 am COMPARISON: None. HISTORY: ORDERING SYSTEM PROVIDED HISTORY: Pain FINDINGS: Nonobstructive bowel gas pattern. No abnormal calcifications overlying the gallbladder urinary tract. No mass effect. Osseous structures grossly intact. IMPRESSION: No significant radiographic abnormality in the abdomen. [employer] Phone: [employer] Phone: XR ANKLE LEFT (MIN 3 VIEWS)o [...] Clarissa Gomez MD 05/01/21 Final result Normal [facility] XR ANKLE LEFT (MIN 3 VIEWS)O rdered By: Fatuma Mckeon on 05-01-2021 Moderate calcaneal spurring [employer] Phone: EXAMINATION: THREE XRAY VIEWS OF THE LEFT ANKLE 05/01/2021 11:12 am COMPARISON: None. HISTORY: ORDERING SYSTEM PROVIDED HISTORY: Seropositive rheumatoid arthritis (HCC) FINDINGS: There is moderate spurring of the superior aspect of the os calcis. The bones and joints are otherwise unremarkable without definite effusion, acute fracture, dislocation radiopaque foreign body or bony destructive lesion [employer] Phone: [place], pn Incoming Radiant Results From [employer] - 05/01/2021 11:21 AM EDT EXAMINATION: THREE [...] bony destructive lesion IMPRESSION: Moderate calcaneal spurring [employer] Work Phone: [facility] Work Phone: XR ANKLE RIGHT (MIN 3 [...] Michael Caceres MD 05/01/21 Final result Normal [facility] XR FOOT LEFT (2 VIEWS)on XR FOOT [...] Clarissa Gomez MD 05/01/21 Final result Normal [facility] XR FOOT LEFT (2 VIEWS)Ordere d By: Fatuma Mckeon on 05-01-2021 Mild degenerative changes There are no plain radiographic findings to suggest an active synovial process of bone as rheumatoid arthritis [employer] Phone: EXAMINATION: TWO XRAY VIEWS OF THE [...] radiopaque foreign body or bony destructive lesion [employer] Phone: [place], pn Incoming Radiant Results From [employer] - 05/01/2021 11:29 AM EDT EXAMINATION: TWO [...] synovial process of bone as rheumatoid arthritis [facility] Phone: [facility] Phone: XR FOOT RIGHT (2 VIEWS)on XR [...] Michael Caceres MD 05/01/21 Final result Normal [facility] XR HAND LEFT (2 VIEWS)on XR HAND [...] by: Clarissa Gomez MD Signed by: Clarissa Gmoez MD 05/01/21 Final result Normal [facility] XR HAND RIGHT (2 VIEWS)on XR HAND [...] Clarissa Gomez MD 05/01/21 Final result Normal [facility] XR HAND RIGHT (2 VIEWS)Order ed By: Fatuma Mckeon on 05-01-2021 Unremarkable two-view right hand series. There are no definite plain radiographic findings to suggest an active synovial process of bone as rheumatoid arthritis [employer] Phone: EXAMINATION: TWO XRAY VIEWS OF THE RIGHT HAND 05/01/2021 11:12 am COMPARISON: None. HISTORY: ORDERING SYSTEM PROVIDED HISTORY: Seropositive rheumatoid arthritis (HCC) FINDINGS: The bones and joints are unremarkable without definite fracture, dislocation, significant degenerative/erosi ve change, radiopaque foreign body, abnormal soft tissue calcification or bony destructive lesion [employer] Phone: [place], [facility] Incoming Radiant Results From [employer] - 05/01/2021 11:24 AM EDT EXAMINATION: TWO [...] synovial process of bone as rheumatoid arthritis [employer] Phone: [employer] Phone: XR WRIST LEFT (2 VIEWS)on XR [...] Clarissa Gomez MD 05/01/21 Final result Normal [facility] XR WRIST RIGHT (2 VIEWS)on 0 05-01-2021 [...] Clarissa Gomez MD 05/01/21 Final result Normal [facility] XR WRIST RIGHT (2 VIEWS)Orde red By: Fatuma Mckeon on 05-01-2021 Unremarkable two-view right wrist series [employer] Phone: EXAMINATION: 2 XRAY VIEWS OF THE RIGHT WRIST; 05/01/2021 11:11 am COMPARISON: None. HISTORY: ORDERING SYSTEM PROVIDED HISTORY: Seropositive rheumatoid arthritis (HCC) FINDINGS: The bones and joints are unremarkable without definite fracture, dislocation, significant degenerative/erosi ve change, radiopaque foreign body or bony destructive lesion [employer] Phone: [place], pn Incoming Radiant Results From [employer] - 05/01/2021 11:23 AM EDT EXAMINATION: 2 XRAY VIEWS OF THE RIGHT WRIST; 05/01/2021 11:11 am COMPARISON: None. HISTORY: ORDERING SYSTEM PROVIDED HISTORY: Seropositive rheumatoid arthritis (HCC) FINDINGS: The bones and joints are unremarkable without definite fracture, dislocation, significant degenerative/erosi ve change, radiopaque foreign body or bony destructive lesion IMPRESSION: Unremarkable two-view right wrist series [employer] Phone: [employer] Phone: XR WRIST RIGHT (MIN 3 VIEWS) [...] Ebenezer Pepe MD 03/01/21 Final result Normal [facility] XR WRIST RIGHT (MIN 3 VIEWS) Ordered By: Riki Tucker on 03-01-2021 Unremarkable right wrist. [employer] Phone: EXAMINATION: 3 XRAY VIEWS OF THE [...] degenerative findings. No appreciable soft tissue abnormality. [employer] Phone: [place], pn Incoming Radiant Results From [employer] - 03/01/2021 7:52 PM EDT EXAMINATION: 3 [...] soft tissue abnormality. IMPRESSION: Unremarkable right wrist. [employer] Phone: [facility] [employer] Work Phone: XR KNEE RIGHT (1-2 VIEWS)on 11-07-2020 [...] Signed by: Damion Leung MD 11/07/20 Recipients: Yaritza Hensley APRN - VENDOR MANAGEMENT SPECIALIST - (authorizing provider) Final result Normal [facility] XR KNEE RIGHT (3 VIEWS)on Joint effusion without acute osseous abnormality. [facility] [employer] EXAMINATION: THREE XRAY VIEWS OF THE RIGHT [...] effusion. The periarticular soft tissues are unremarkable. [facility] [place], [facility] Incoming Radiant Results From [employer] - 09/04/2019 6:08 PM EST EXAMINATION: THREE [...] IMPRESSION: Joint effusion without acute osseous abnormality. [facility] [employer] XR HAND LEFT (MIN 3 VIEWS)on 05-12-2019 No acute osseous abnormality. [facility] [employer] [place] EXAMINATION: THREE XRAY VIEWS OF THE LEFT HAND 05/12/2019 12:22 pm COMPARISON: November 12, 2018 HISTORY: ORDERING SYSTEM PROVIDED HISTORY: pain TECHNOLOGIST PROVIDED HISTORY: pain FINDINGS: There is no evidence of acute fracture. There is normal alignment. No acute joint abnormality. No focal osseous lesion. No focal soft tissue abnormality. [facility] [place], [facility] Incoming Radiant Results From [employer] - 05/12/2019 12:48 PM EDT EXAMINATION: THREE XRAY VIEWS OF THE LEFT HAND 05/12/2019 12:22 pm COMPARISON: November 12, 2018 HISTORY: ORDERING SYSTEM PROVIDED HISTORY: pain TECHNOLOGIST PROVIDED HISTORY: pain FINDINGS: There is no evidence of acute fracture. There is normal alignment. No acute joint abnormality. No focal osseous lesion. No focal soft tissue abnormality. IMPRESSION: No acute osseous abnormality. [facility] [place] MRI BRAIN WO CONTRASTon 04-03 MRI BRAIN [...] Tiffanie Hughes MD 04/24/19 Final result Normal [facility] MRI CERVICAL SPINE WO CONTRA [...] Tiffanie Hughes MD 04/24/19 Final result Normal [facility] Vital Signs Date Time Vital Sign Value Performing Clinician Robson henry 09-13-2021 08:22-0500 Diastolic blood pressure 86 mm[Hg] Francis MarleyBee Ware DO Work Phone: [facility] 09-13-2021 08:22-0500 Systolic blood pressure 147 mm[Hg] Francis BeachroBee Ware DO Work Phone: [employer] 09-13-2021 08:20-0500 Body mass index (BMI) [Ratio] 37.2 kg/m2 Francis BeachroBee Ware DO Work Phone: [employer] 09-13-2021 08:20-0500 Body temperature 97.39 [degF] Francis BeachroBee Ware DO Work Phone: [employer] 09-13-2021 08:20-0500 Body weight 95.25 kg Francis MarleyBee Ware DO Work Phone: [employer] 09-13-2021 08:20-0500 Heart rate 85 /min Francis MarleyBacktrace I/O Work Phone: [employer] 09-13-2021 08:20-0500 Respiratory rate 16 /min Francis MarleyBee Ware DO Work Phone: [employer] 09-13-2021 08:20-0500 SaO2% (BldA) [Mass fraction] 99 % Francis Pinto DO Work Phone: [employer] 03-01-2021 18:28-0400 Diastolic blood pressure 96 mm[Hg] Clari Tim Work Phone: [employer] Work Phone: 03-01-2021 18:28-0400 Systolic blood pressure 151 mm[Hg] Clari Tim Work Phone: [employer] Work Phone: 03-01-2021 18:26-0400 Body temperature 98.71 [degF] Clari Trendient Work Phone: [employer] Work Phone: 03-01-2021 18:26-0400 Heart rate 70 /min [employer] Work Phone: [employer] Work Phone: 03-01-2021 18:26-0400 Respiratory rate 18 /min [employer] Work Phone: [employer] Work Phone: 03-01-2021 18:26-0400 SaO2% (BldA) [Mass fraction] 98 % [employer] Work Phone: [employer] Work Phone: 09-06-2019 20:00-0500 Body Temperature 97.9 [degF] Oscar [employer] [place] 09-06-2019 20:00-0500 BP Diastolic 100 mm[Hg] [facility] [place] 09-06-2019 20:00-0500 BP Systolic 154 mm[Hg] Oscar [facility] [place] 09-06-2019 20:00-0500 Pulse (Heart Rate) 89 /min Oscar [facility]uniga [facility] [place] 09-06-2019 20:00-0500 Pulse Oximetry 97 % Oscar [facility] [place] 09-06-2019 20:00-0500 Respiratory Rate 19 /min Oscar [facility]uniga [facility], [place] 09-04-2019 17:38-0500 BMI (Body Mass Index) 36.49 kg/m2 David Perez [facility], [place] 09-04-2019 17:38-0500 Body Temperature 98.2 [degF] [facility] Perez [facility], [place] 09-04-2019 17:38-0500 Body weight 93.44 kg David Perez [facility], [place] 09-04-2019 17:38-0500 BP Diastolic 94 mm[Hg] David Perez [facility], [place] 09-04-2019 17:38-0500 BP Systolic 142 mm[Hg] David Perez [facility], [place] 09-04-2019 17:38-0500 Pulse (Heart Rate) 87 /min David Carter [facility], [place] 09-04-2019 17:38-0500 Pulse Oximetry 99 % David Perez [facility], [place] 09-04-2019 17:38-0500 Respiratory Rate 14 /min David Perez [facility], [place] 05-12-2019 12:15-0400 Body Temperature 98.01 [degF] [place] 05-12-2019 12:14-0400 BP Diastolic 85 mm[Hg] [place] 05-12-2019 12:14-0400 BP Systolic 152 mm[Hg] [place] 05-12-2019 12:14-0400 Pulse (Heart Rate) 87 /min [place] 05-12-2019 12:14-0400 Pulse Oximetry 96 % [place] 05-12-2019 12:14-0400 Respiratory Rate 16 /min [place]ari [place], [place] Encounters Encounter Date Encounter Type Care Provider Facility Start: 01-11-2024 End: 01-11-2024 ambulatory TIMOTHY B APLING Not Available Start: 12-12-2023 End: 12-12-2023 ambulatory TIMOTHY Elkins APLING Not Available Start: 11-28-2023 End: 11-29-2023 ambulatory TIMOTHY Elkins APLING Not Available Start: 09-27-2023 ambulatory David DIAMOND Facility :[facility] Start: 09-12-2023 End: 09-13-2023 ambulatory TIMOTHY Elkins APLING Not Available Start: 08-22-2023 ambulatory David DIAMOND [facility] Start: 08-12-2023 ambulatory Rangelnicole Ruiz DDS [facility] Start: 07-06-2022 End: 07-07-2022 ambulatory RODRIGUEZ KAPLAN Facility:[facility] Start: 05-21-2022 End: 05-22-2022 ambulatory RODRIGUEZ KAPLAN Facility:[facility] Start: 03-19-2022 End: 03-27-2022 ambulatory RODRIGUEZ KAPLAN Facility:[facility] Start: 02-22-2022 End: 02-23-[address] RIKI RIOS Facility:[facility] Start: 09-23-2021 End: 09-23-2021 [facility] Start: 09-21-2021 End: 09-21-2021 Emergency department patient visit CLARI WOLFHMANN [facility] Start: 09-13-2021 End: 09-13-2021 Emergency department patient visit FRANCIS Bacilio PINTO [facility] Start: 09-13-2021 End: 09-13-2021 Emergency department patient visit Francis Ribera Yongrich Work Phone: [facility] ED Comment on above: Sprain of right foot , initial encounter (Primary Dx); Sprain of left ankle, unspecified ligament, initial encounter Start: 05-08-2021 End: 05-11-2021 ambulatory SAHIL INTERIANO [facility] Start: 05-08-2021 End: 05-10-2021 Subsequent hospital visit by physician Karoline Meek Dr Room 4 [facility] Comment on above: Microscopic hematuri a; Flank pain; Hydronephrosis with ureteral calculus Start: 05-01-2021 End: 08-02-2021 ambulatory SAHIL INTERIANO [facility] Start: 05-01-2021 End: 05-03-2021 Subsequent hospital visit by physician Karoline Meek Dr Room 2 [facility] Radiology Comment on above: Seropositive rheumat oid arthritis (HCC) Pain Start: 03-01-2021 End: 03-01-2021 [facility] Start: 03-01-2021 End: 03-01-2021 Emergency department patient visit Clari Tim Work Phone: [facility] ED Comment on above: Strain of right wris t, initial encounter (Primary Dx) Start: 11-07-2020 End: 11-10-2020 ambulatory [facility]ITZA HENSLEY [facility] Start: 11-07-2020 End: 11-09-2020 Subsequent hospital visit by physician Clari Bach [facility] Start: 09-06-2019 End: 09-06-2019 Emergency department patient visit Oscar Zuniga Work Phone: [facility] ED Comment on above: Sprain of collateral ligament of right knee, initial encounter (Primary Dx) Start: 09-04-2019 End: 09-04-2019 Emergency department patient visit David Angeles Perez [facility] ED Comment on above: Injury of right knee , initial encounter (Primary Dx); Effusion of right knee joint Start: 05-12-2019 End: 05-12-2019 Emergency department patient visit [facility] ED Comment on above: Contusion of left coles nd including fingers, initial encounter (Primary Dx) Start: 04-20-2019 End: 04-20-2019 Emergency department patient visit JEAN HARPER [facility] Start: 07-29-2017 End: 07-30-2017 Ambulatory Nilo Mendez Facility:[facility] Procedures Date Procedure Procedure Detail [...] Mri brain brain stem w/o contrast material [facility] Start: 04-20-2019 Mri spinal canal cer vical w/o contrast matrl [facility] Start: 04-20-2019 IP CONSULT TO NEUROLOGY [facility] Plan of Treatment Date Care Activity Detail Author Start: 11-28-2027 DTaP/Tdap/Td vaccine (2 - Td or Tdap) DTaP/Tdap/Td vaccine (2 - Td or Tdap) [facility] Start: 11-28-2027 DTaP/Tdap/Td vaccine (2 - Td) DTaP/Tdap/Td vaccine (2 - Td) [place] Start: 11-25-2021 End: 11-25-2021 Patient encounter procedure 11/25/2021 Office Visit Rheumatology Fatuma Mckeon MD [address] [place] [address] [facility] Start: 06-24-2021 End: 06-24-2021 Patient encounter procedure 06/24/2021 Office Visit Rheumatology Fatuma Mckeon MD [address] [place], [place] [id number] [facility] Start: 06-03-2021 Influenza vaccination [facility] Start: 2021 Lipid panel Lipid screen [facility] Start: 06-03-2020 Influenza vaccination Flu vaccine (# 1) [place] Start: 06-03-2019 Influenza vaccination Flu vaccine (# 1) [place] Start: 2016 Diabetes screen Diabetes screen [facility] Start: 2000 DTaP/Tdap/Td vaccine (1 - Tdap) DTaP/Tdap/Td vaccine (1 - Tdap) [place] Start: 1996 HIV screen HIV screen [place], [place] Start: 1996 HIV screening HIV screen [facility] Start: 1994 Varicella Vaccine (1 of 2 - 13+ 2-dose series) Varicella Vaccine (1 of 2 - 13+ 2-dose series) [place] Start: 1993 COVID-19 Vaccine (1) COVID-19 Vaccin e (1) [facility] Start: 1992 DTaP/Tdap/Td vaccine (1 - Tdap) DTaP/Tdap/Td vaccine (1 - Tdap) [place] Start: 1982 Varicella Vaccine (1 of 2 - 2-dose childhood series) Varicella Vaccine (1 of 2 - 2-dose childhood series) [facility] Start: 1981 Hepatitis C screening Hepatitis C sc [facility] End: 05-12-2019 Splint application Splint application Procedures STAT One Time for 1 Occurrences starting 05/12/2019 until 05/12/2019 [place] Comment on above: One Time for 1 Occur rences starting 05/12/2019 until 05/12/2019 Immunizations Immunization Date Immunization Notes Care Provider eDisy duong 07-14-2010 influenza virus vacc ine, whole virus Clari Tim [place], [place] Payers Date Payer Category Payer Medicaid [id number] 2020 Unknown [id number] 2019 Unknown [id number] 2019 Unknown [facility] [id number] xxxxxxxxx 2019-Present [address] [address] [place] [address] xxxxxxxxx [id number] 1981 Unknown [id number] 1981 Unknown [id number] [id number] 1981 Unknown [id number] [id number] 1981 Unknown [id number] [id number] 1981 Unknown [id number] [id number] 1981 Unknown [id number] [id number] 1981 Unknown [id number] [id number] 1981 Unknown [id number] [id number] 1981 Unknown [id number] [id number] 1981 Unknown [id number] [id number] 1981 Unknown [id number] [id number] 1981 Unknown [id number] [id number] 1981 Unknown [id number] [id number] 1981 Unknown [id number] [id number] 1981 Unknown [id number] [id number] 1981 Unknown [id number] 2.16840.1.383286.3.579.2.173 1981 Unknown [id number] [id number] 1981 Unknown [id number] [id number] 1981 Unknown [id number] 1980 Unknown [id number] 2.16840.1.548841.3.579.2.173 1980 Unknown [id number] 2.16.840.1.099544.3.579.2.593 1980 Unknown [id number] 2.16840.1.148184.3.579.2.593 1980 Unknown [id number] 2.840.1.501183.3.579.2.593 1981 Unknown [id number] 2.840.1.517020.3.579.2.593 1980 Unknown [id number] 2.840.1.661381.3.579.2.727 1981 Unknown [id number] 2.16840.1.592164.3.579.2.1259 1981 Unknown [id number] 2.16840.1.882800.3.579.2.1259 1981 Unknown [id number] 2.840.1.100189.3.579.2.1259 1981 Unknown [id number] 2.16.840.1.433227.3.579.2.1259 1981 Unknown [id number] 2.16840.1.490438.3.579.2.1259 1981 Unknown [id number] 2.16.840.1.707442.3.579.2.1259 1981 Unknown [id number] 2.16.840.1.563446.3.579.2.1259 1959 Unknown [id number] 1.2.840.455668.1.13.239.2.7.3.6 [id number] 1959 Unknown [id number] Social History Date Type Detail Facility Start: 11-08-2014 End: 09-04-2019 Tobacco smoking status NHIS Never smoker [facility] Start: 09-04-2019 End: 03-27-2021 Alcohol intake Current non-drinker of alcohol (finding) [facility] [employer] [place], [place] Start: 10-16-2017 Alcohol Comment very [place] Start: 1980 Sex Assigned At Not on file M [place], [place] Start: 05-12-2019 Alcohol intake No [place] Start: 11-08-2014 End: 09-06-2019 Tobacco use and exposure Never used [place], [place] Exposure to SARS-CoV -2 (event) Not sure [facility] Start: 03-27-2021 Alcohol Comment very rare Emma parikh Work Phone: Clinical Note 11-11-2023 Note Date & Type Note Facility 11-11-2023 Note TC to Home number fo r SLAT GRADER referral for: Elevated Rheumatoid Factor Referral in media analytics manager Spoke with son and provider Rheum clinic call back number. Son states he will give his father the message to return call. [facility] Consultation note 07-06-2022 Note Date & Type [...] his work. 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 He has low back pain 3/10. The [...] in office. CC: Chen Kaplan CNP [facility] Discharge instructions 09-13-2021 InstructionsAttachments Note Date & Type Note Facility 09-13-2021 Hospital Discharg e instructions Francis Pinto, - 09/13/2021 Return to the Emergency Department immediately if you develop worsening pain, numbness, weakness , or you have any other concerns. Please follow up with your orthopaeidc doctor in 2-3 days. Ice, elevate Use crutches The following attachments cannot be sent through Care Everywhere.Ankle Sprain (Luxembourger)documented in this encounter [facility] Phone: Evaluation note Note Date & Type Note Facility Evaluation note Diagnosis Strain of right wrist, initial encounter- Primary documented in this encounter [facility] Phone: Evaluation note Note Date & Type Note Facility Evaluation note Diagnosis Seropositive rheumatoid arthritis (HCC) Rheumatoid arthritis documented in this encounter [facility] Phone: Evaluation note Note Date & Type Note Facility Evaluation note Diagnosis Pain Generalized pain documented in this encounter [employer] Phone: Evaluation note Note Date & Type Note Facility Evaluation note Diagnosis Microscopic hematuria Flank pain Abdominal pain, unspecified site Hydronephrosis with ureteral calculus Calculus of ureter documented in this encounter [employer] Phone: Evaluation note Note Date & Type Note Facility Evaluation note Diagnosis Sprain of right foot, initial encounter- Primary Sprain of left ankle, unspecified ligament, initial encounter documented in this encounter [facility] Phone: Hospital Discharge instructions Attachments Note Date & Type Note Facility Hospital Discharge instructions The following attachments cannot be sent through Care Everywhere.Strain or Sprain (Luxembourger)documented in this encounter [facility] Phone: Summary Purpose Family History No Family History Records FoundNo Family History Records FoundNo Family History Records FoundNo Family History Records FoundNo Family History Records FoundNo Family History Records FoundNo Family History Records FoundNo Family History Records Found Advance Directives No Advanced Directives Records FoundDocuments on File Type Date Recorded 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 * Finger: Bruises (Luxembourger) documented in this encounter* Attachments The following attachments cannot be sent through Care Everywhere. * Knee Sprain (Luxembourger) documented in this encounter Additional Source Comments (unrecognized sect ion and content) No Status Records FoundNo Status Records FoundNo Status Records FoundNo Status Records FoundNo Status Records FoundNo Status Records FoundNo Status Records FoundNo Status Records Found INFORMATION SOURCE (unrecogn ized section and content) DATE CREATED AUTHOR 03/31/2018 [facility] DATE CREATED AUTHOR AUTHOR'S ORGANIZ ATION 04/26/2019 [facility] DATE CREATED AUTHOR AUTHOR'S ORGANIZ ATION 09/23/2021 [facility] DATE CREATED AUTHOR AUTHOR'S ORGANIZ ATION 02/16/2023 [facility] DATE CREATED AUTHOR AUTHOR'S ORGANIZ ATION 08/14/2023 [facility] DATE CREATED AUTHOR AUTHOR'S ORGANIZ ATION 09/29/2023 [facility] DATE CREATED AUTHOR AUTHOR'S ORGANIZ ATION 11/13/2023 [facility] DATE CREATED AUTHOR AUTHOR'S ORGANIZ ATION 01/12/2024 [facility] EPIC Reason for Visit (unrecogniz ed section and [...] On 03/01/21 at 1915, For 1 dose 1940 (Given - Provid er: Jean Auguste RN) Scheduled Medication Order 09/11/2021 09/12/2021 09/13/2021 HYDROcodone-acetaminophen (NORCO) 5-325 MG per tablet 1 tablet (COMPLETED) 1 tablet, Oral, ONCE, On 09/13/21 at 1015, For 1 dose, Maximum dose of acetaminophen is 4000 mg from all sources in 24 hours. 1020 (Given - Provid er: Rocio Neville RN) Care Teams (unrecognized sec tion and content) Manager Of Sustainability Relationship Specialty Start Date End Date Clari Bach [address] [place], [place] [id number] PCP - General Nurse Practitioner 04/21/19 FOR [...] BE BASED ON THE PRIMARY CLINICAL RECORDS. [facility]. provides no warranty or guarantee of the accuracy or completeness of information in this document.
--- NOTE | 2024-01-14 22:55 | XR_ITS ---
The [address] [address] Patient Name: ARIADNA MONTEIRO MRN: [id number] date: 1980 Sex: M Assigned Patient Location: ER Current Patient Location: ER Accession/Order Number: [id number] Exam Date: 01/14/2024 23:00 Report Date: 01/14/2024 23:59 At the request of: WHITNEY FLYNN Procedure: XR hand LT min 3V EXAM: XR hand LT min 3V HISTORY: Pain, third finger third digit crush injury with pain and swelling. COMPARISON: None. TECHNIQUE: AP, oblique and lateral right hand x-rays. FINDINGS: There is prominent third digit/middle finger soft tissue swelling centered around the PIP joint. No acute right hip fracture or osseous malalignment is seen. Bony mineralization is normal. There is no soft tissue gas or foreign body. XR/XR hand LT min 3V IMPRESSION: Third digit soft tissue swelling. No acute right hand fracture or osseous malalignment. Electronically authenticated by: YAZMIN PELAYO Date: 01/14/2024 23:59
--- NOTE | 2024-01-14 22:55 | ED.UPPEXIN1 ---
HPI HPI - Extremity Injury (Upper) General Chief Complaint: Extremity Injury, Upper Stated Complaint: upper extremity injury Time Seen by Provider: 01/14/24 22:47 Source: patient Mode of arrival: walk-in Limitations: no limitations History of Present Illness HPI narrative: 43-year-old male presents for injury to his left third finger. Yesterday he was closing a gate and accidentally closed the gate on his third finger at the PIP. No other injury was sustained. It has been continuously swollen so he came in to get checked. He is right-handed. Related Data Previous Rx's ?Medication ?Instructions ?Recorded ibuprofen 600 mg tablet 600 mg PO TID PRN pain #30 tabs 11/27/23 Allergies Allergy/AdvReac Type Severity Reaction Status Date / Time Penicillins Allergy Intermediate Verified 01/14/24 22:53 tramadol [From Ultram] Allergy Intermediate Verified 01/14/24 22:53 Opioid HPI Opioid Management Most Recent Pain and Opioid Data: Last Pain Scale 9 01/14/24 23:28 Last ED Pain Assessment 01/14/24 22:56 Review of Systems ROS Narrative A ten point review of systems is negative except as noted above. PFSH PFSH Social History Smoking status: Never smoker Exam Narrative Exam Narrative: Nurses note and vital signs reviewed and patient is not hypoxic. General: The patient appears well and in no apparent distress. Patient is resting comfortably on cart. Skin: Warm, dry, no pallor noted. There is no rash noted. Head: Normocephalic, atraumatic Eye: Normal conjunctiva, no drainage Ears, Nose, Mouth, and Throat: oral mucosa is moist. Nares patent. Cardiovascular: Regular Rate and Rhythm Respiratory: Patient is in no distress, no accessory muscle use, lungs are clear to auscultation, no wheezing, rales or rhonchi Back: non-tender GI: Soft and nontender Musculoskeletal: The left hand is inspected. The first second fourth and fifth fingers are nontender and have full range of motion. He has swelling at the PIP of the middle finger. Skin intact. Neurological: A&O, normal speech Psychiatric: Cooperative Constitutional Vital Signs, click to edit/add: Last Vital Signs Temp 97.8 F 01/14/24 22:46 Pulse 76 01/14/24 22:46 Resp 16 04/13/24 22:46 BP 158/100 H 01/14/24 22:46 Pulse Ox 97 01/14/24 22:46 O2 Del Method Room Air 01/14/24 22:46 Course Vital Signs Vital signs: Vital Signs Temperature 97.8 F 01/14/24 22:46 Pulse Rate 76 01/14/24 22:46 Respiratory Rate 16 01/14/24 22:46 Blood Pressure 158/100 H 01/14/24 22:46 Pulse Oximetry 97 01/14/24 22:46 Oxygen Delivery Method Room Air 01/14/24 22:46 Temperature 97.8 F 01/14/24 22:46 Pulse Rate 76 01/14/24 22:46 Respiratory Rate 16 01/14/24 22:46 Blood Pressure 158/100 H 01/14/24 22:46 Pulse Oximetry 97 01/14/24 22:46 Oxygen Delivery Method Room Air 01/14/24 22:46 MDM - Extremity Injury (Upper) MDM Narrative Medical decision making narrative: X-ray of the finger on my interpretation shows no acute findings. Splint applied, application checked by me and found to be appropriate. He is neurovascularly intact. Treatment diagnosis and follow-up were discussed with the patient. Differential Diagnosis Differential diagnosis: Likely other (Finger fracture, finger sprain) Imaging Data Hand x-ray: My impression: No acute findings. Some degenerative changes are noted. Discharge Plan Discharge Stand Alone Forms: Portal Instructions Chief Complaint: Extremity Injury, Upper Clinical Impression: Finger sprain Patient Disposition: Home, Self-Care Time of Disposition Decision: 00:01 Condition: Good Mode of Transportation: Private Vehicle Prescriptions / Home Meds: No Action ibuprofen 600 mg tablet 600 mg PO TID PRN (Reason: pain) Qty: 30 0RF Print Language: Albanian Instructions: Finger Sprain (ED) Referrals: RODRIGUEZ KAPLAN [Primary Care Provider] - 1 week
[2024-01-14] MEDS: IBUPROFEN 400 MG TABLET 800 MG PO (23:28)
== END 2024-01-15 00:07 | disposition home or self-care (01) ==
PROVIDERS: Emergency Provider Emergency Medicine; PCP Nurse Practitioner Family
DX: S63.613A Unspecified sprain of left middle finger, initial encounter (principal); W23.0XXA Caught, crushed, jammed, or pinched between moving objects, initial encounter
CPT/HCPCS: 29130; 73130; 99283

== ENCOUNTER 2024-02-13 08:15 | Outpatient (OUT) | payer MEDICAID, SELFPAY ==
--- NOTE | 2024-02-13 | PCN_ITS ---
CARDIAC STRESS TEST Requesting Physician: Isabella Jimenes CNP Procedure Date: 02/13/2024 PERFORMING PROVIDER: Tayler Mccray M.D. REASON FOR TEST: Abnormal EKG. STRESS TEST PROTOCOL: Rubin protocol. Resting heart rate: 81 beats per minute. Maximum heart rate: 153 beats per minute. Peak maximal heart rate percentage: 85%. Resting blood pressure: 154/82 Maximum blood pressure: 192/80 Exercise time: 8 minutes 28 seconds Stage reached: 4 METS: 10.10 ST changes: Non-specific ST changes. No definite EKG changes meeting the criteria for ischemia. Symptoms: None reported. Arrhythmias: PVCs. CONCLUSIONS: 1. Resting EKG demonstrates normal sinus rhythm, minimal voltage criteria for LVH, may be normal variant. Patient had non-specific T-wave abnormality. 2. Patient exercised for 8 minutes and 28 second. He reached stage 4, at 10.10 METS. 3. Lake treadmill score is 8, portending low risk for angiographically significant coronary artery disease. 4. Patient had non-specific T-wave abnormality on resting EKG and with exercise. There were no definite EKG changes meeting the criteria for ischemia. 5. Clinical correlation recommending. MTDD
--- NOTE | 2024-02-13 08:00 | NM_ITS ---
Patient Name: ARIADNA MONTEIRO MR#: [id number] : 1980 Exam Date: 02/13/2024 Ordering Doctor: RODRIGUEZ KAPLAN CNP RADIOLOGY REPORT PROCEDURE: NM SANGEETA PERF SPECT REST STR COMPARISON: None. INDICATIONS: Abnormal EKG TECHNIQUE: Exam Description: Stress/Rest one day protocol gated SPECT Rest Imagin.5 mCi Tc-99m Cardiolite IV on 02/13/2024 Stress Imaging 29.7 mCi Tc-99m Cardiolite IV on 02/13/2024 Exercise Protocol: Rubin Heart Rate (bpm): Rest: 81 Max: 153 PMHR: 85 Blood Pressure: Rest: 154/82 Max: 192/88 Exercise Time: Minutes: 8 Seconds: 28 Stage Reached: Stage: 4 Mets 10.1 Symptoms: Rest and peak stress ECG findings were normal and the exercise portion of the study was normal per attending physician Dr. Mccray . For more details please see separate cardiac stress test report. FINDINGS: QUALITY OF STUDY: Excellent. PERFUSION DEFECT: None. LOCATION: N/A SIZE: N/A. SEVERITY: N/A. TYPE: N/A. WALL MOTION: Normal. LV SIZE: Normal. 78 mL. TID / TCD: None; 0.8 LVEF: Normal. Calculated EF 59%. SUMMARY: Myocardial perfusion imaging study is NORMAL. CONCLUSION: 1. Normal nuclear medicine myocardial perfusion scan. Dictated by: Riki Rebolledo M.D. on 02/14/2024 at 12:07 Approved by: Riki Rebolledo M.D. on 02/14/2024 at 12:12
== END 2024-02-13 08:16 | disposition home or self-care (01) ==
LOC: NM 08:15
PROVIDERS: PCP Nurse Practitioner Family; Visit Provider Nurse Practitioner Family
DX: R94.31 Abnormal electrocardiogram [ECG] [EKG] (principal)
CPT/HCPCS: 78452; 93017; A9500

== ENCOUNTER 2024-04-13 12:56 | Outpatient (OUT) | payer MEDICAID, SELFPAY | END 2024-04-13 12:57 | disposition home or self-care (01) | LOC: CARD 12:56 | PROVIDERS: PCP Nurse Practitioner Family; Visit Provider Nurse Practitioner Family | DX: R00.0 Tachycardia, unspecified (principal) | CPT/HCPCS: 93242 ==

== ENCOUNTER 2024-06-07 11:31 | Outpatient (REF) | payer BC, SELFPAY ==
--- OUTSIDE RECORDS SUMMARY | 2024-06-07 11:56 | XMS_ITS | CCD ---
Author Organization [facility] Care Team Providers Care Rivet Spinner Name Role Phone Nilo Mendez Unavailable Unavailable FRUTH, JEAN Primary Care Unavailable KENYATTA KEN Attending Unavailable CHIRRI, ARTEMIO Consulting Unavailable Tim, Clari A Primary Care Provider Tim, Clari A Primary Care Provider Tim, Clari A Primary Care Provider [phone] TIM, CLARI A Primary Care Unavailable YARITZA HENSLEY Referring Unavailable TIM, CLARI A Primary Care Unavailable TIM, CLARI A Primary Care Unavailable INTERIANO, SAHIL R Referring Unavailable TIM, CLARI A Primary Care Unavailable INTERIANO, SAHIL R Referring Unavailable INTERIANO, SAHIL R Referring Unavailable TIM, CLARI A Primary Care Unavailable YARITZA HENSLEY Referring Unavailable TMI, CLARI A Primary Care Unavailable TIM, CLARI A Primary Care Unavailable TIM, CLARI A Primary Care Unavailable INTERIANO, SAHIL R Referring Unavailable TIM, CLARI A Primary Care Unavailable INTERIANO, SAHIL R Referring Unavailable FATUMA SANCHEZ Referring Unavailable TIM, CLARI A Primary Care [...] Consulting Unavailable EUSEBIO, RODRIGUEZ Admitting Unavailable EUSEBIO, RORDIGUEZ Attending Unavailable EUSEBIO, RODRIGUEZ Primary Care Unavailable Ruiz Lakshmi PARISH Attending Unavailable APLING, TIMOTHY B Attending Unavailable APLING, TIMOTHY B Referring Unavailable APLING, TIMOTHY B Referring Unavailable APLING, TIMOTHY B Attending Unavailable APLING, TIMOTHY B Attending Unavailable WILL SANTANA Attending Unavailable APLING, TIMOTHY B Attending Unavailable APLING, TIMOTHY B Referring Unavailable TIM, CLARI A Primary Care Physician [phone] RODRIGUEZ KAPLAN S Referring Unavailable NILL, David R Attending Unavailable EUSEBIO, RODRIGUEZ S Referring Unavailable NILLDavid R Attending Unavailable Allergies Allergy Classification Reported Allergen(s) Allergy Type Date of Onset Reaction(s) Facility Opioid Agonists (13 sources) traMADol Drug Allergy 6 [facility] Penicillins (antibiotic) (13 sources) Penicillins Drug Allergy 1 [facility] (7 sources) Penicillins; Translations: [penicillins] Propensity to adverse reactions to drug 1 Rash, Eruption of skin (disorder) [place] (6 sources) traMADol; Translations: [tramadol] Drug Allergy 6 Rash, Eruption of skin (disorder) [place] (1 source) Penicillin Drug Allergy [address] [facility] (2 sources) traMADol; Translations: [Ultram] Drug Allergy [facility] Medications Current Medications Medication Drug Class(es) Dates Sig (Normalized) Sig (Original) acetaminophen 500 mg oral tablet (18 sources) Start: 01-08-2011 take 1 tablet by mouth every four hours as needed acetaminophen (TYLENOL) 500 MG tablet Take 500 mg by mouth every 4 hours as needed. 0 01/08/2011 Active allopurinol 100 mg oral tablet (15 sources) Xanthine Oxidase Inhibitor Start: 05-15-2024 take 1 tablet by mouth once daily allopurinol 100 mg Tab 100 mg = 1 tab(s), Oral, Daily, Refills(s) 0 Start Date: 05/15/24 Status: Ordered End: 09-13-2021 take 1 tablet by mouth [...] 20 mg by mouth daily 0 Active hydroCHLOROthiazide 12.5 mg oral capsule (1 source) Thiazide Diuretic Start: 05-15-2024 take 1 capsule by mouth once daily hydrochlorothiazide 12.5 mg Cap 12.5 mg = 1 cap(s), Oral, Daily, Refills(s) 0 Start Date: 05/15/24 Status: Ordered ibuprofen 600 mg oral tablet (15 sources) [...] days 14 tablet 0 09/04/2019 09/11/2019 Active tamsulosin hydrochloride 0.4 mg oral capsule (1 source) alpha-Adrenergic Tracey Start: 05-04-2021 take 1 capsule by mouth twice daily Flomax 0.4 mg Cap 0.4 mg = 1 cap(s), Oral, BID, # 20 cap(s), Refills(s) 0, Pharmacy: [id number], 160, cm, 05/04/21 15:08:00 EDT, Height/Length Dosing, 92, kg, 05/04/21 15:08:00 EDT, Weight Dosing Start Date: 05/04/21 Status: Ordered 1 ml triamcinolone acetonide 40 mg/ml prefilled [...] Active Problems Problem Classification Problem Date Documented Da te Episodic/Chronic Abdominal pain (2 sources) Flank pain; Translations: [Unspecified abdominal pain] Episodic Anal and rectal conditions (4 sources) Anal fissure; Translations: [Anal fissure, unspecified] Onset: 05-15-2024 Episodic Anxiety disorders (2 sources) Anxiety; Translations: [Posttraumatic stress disorder] Onset: 04-30-2019 08-26-2023 Chronic Calculus of urinary tract (2 sources) Kidney stone 05-04-2021 Episodic Essential hypertension (3 sources) Essential (primary) hypertension; Translations: [Essential hypertension] Onset: 07-09-2022 08-26-2023 Chronic Gastrointestinal hemorrhage (20 sources) Rectal hemorrhage; Translations: [Hemorrhage of anus and rectum] Onset: 01-12-2011 01-12-2011 Episodic Genitourinary symptoms and ill-defined conditions (3 sources) Microscopic hematuria; Translations: [Other microscopic hematuria] Episodic Gout and other crystal arthropathies (1 source) Chronic gouty arthritis Onset: 01-05-2021 08-26-2023 Chronic Headache; including migraine (1 source) Cluster headache 05-04-2021 Chronic Mood disorders (1 source) Bipolar disorder, most recent episode depression 05-04-2021 Chronic Osteoarthritis (1 source) Arthritis 05-04-2021 Chronic Other connective tissue disease (14 sources) Weakness of right hand; Translations: [Other symptoms and signs involving the musculoskeletal system] 04-20-2019 Episodic Other connective tissue disease (4 sources) Weakness of right hand; Translations: [Right hand weakness] 04-20-2019 Other diseases of kidney and ureters (2 sources) Hydronephrosis due to ureteral obstruction; Translations: [Hydronephrosis with renal and ureteral calculous obstruction] Episodic Other gastrointestinal disorders (2 sources) Altered bowel function; Translations: [Change in bowel habit] Onset: 05-15-2024 Episodic Other nervous system disorders (1 source) Other specified diseases of spinal cord; Translations: [OTH SPECIFIED DISEASES SPINAL CORD] Onset: 07-09-2022 Chronic Other non-traumatic joint disorders (4 sources) Effusion of right knee joint; Translations: [Effusion of right knee joint] Onset: 09-04-2019 09-04-2019 Other nutritional; endocrine; and metabolic disorders (1 source) Body mass index 30+ - obesity 05-15-2024 Chronic Other nutritional; endocrine; and metabolic disorders (1 source) Obesity caused by energy imbalance 05-15-2024 Chronic Residual codes; unclassified (1 source) Pain; Translations: [Pain, unspecified] Episodic Residual codes; unclassified (1 source) Insomnia 08-26-2023 Episodic Rheumatoid arthritis and related disease (9 sources) Seropositive rheumatoid arthritis; Translations: [Rheumatoid arthritis with rheumatoid factor, unspecified] Chronic Spondylosis; intervertebral disc disorders; other back problems (7 sources) Other intervertebral disc degeneration, lumbar region; [...] Classification Problem Date Documented Da te Episodic/Chronic Open wounds of head; neck; and trunk [...] Test Name Value Interpretation Reference Range Facility Ambulatory Visit Summaryon 0 05-15-2024 Ambulatory Visit Summary Ambulatory Visit Summary ARIADNA MONTEIRO :1980 Visit Date:05/15/2024 Ambulatory Visit Instructions Your Diagnosis Change in bowel habits Rectal bleeding Rectal or anal pain Anal fissure Your Care Team Attending Physician - David DIAMOND MD Primary Care Physician - CLARI DUMONT CNP Referring Physician - RODRIGUEZ KAPLAN CNP This Is Your Medications List Contact prescribing physician if questions or concerns allopurinol (allopurinol 100 mg Tab) hydrochlorothiazide (hydrochlorothiazide 12.5 mg Cap) tamsulosin (Flomax 0.4 mg Cap) Procedures Performed Ankle fracture, Colonoscopy. Discharge Vitals Heart Rate (Peripheral) 76 Respiratory Rate 16 Blood Pressure 118/76 Height 160 cm Height 63 in Weight 91 kg Weight 200.2 lb BMI 35.55 Medications What How Much When Instructions Unchanged allopurinol (allopurinol 100 mg Tab) 1 Tablets By Mouth Every day Contact prescribing physician if questions or concerns Unchanged hydrochlorothiazide (hydrochlorothiazide 12.5 mg Cap) 1 Capsules By Mouth Every day Contact prescribing physician if questions or concerns Unchanged tamsulosin (Flomax 0.4 mg Cap) 1 Capsules By Mouth 2 times a day Contact prescribing physician if questions or concerns Allergies Ultram (Rash) penicillins (Rash) Problems Ongoing - Any problem that you are currently receiving treatment for. Anal fissure Anxiety Arthritis Bilateral kidney stones Bipolar depression BMI 35.0-35.9,adult Change in bowel habits Chronic gouty arthritis Cluster headaches Degeneration of lumbar intervertebral disc Essential hypertension Flank pain Hydronephrosis with ureteral calculus Hypertension Insomnia Kidney stone Microscopic hematuria Nocturia Obesity due to excess calories Posttraumatic stress disorder Rectal bleeding Rectal or anal pain Seropositive rheumatoid arthritis Patient Survey You may receive a survey via text or e-mail asking about your office visit. Please share your experience with us by completing your survey. We appreciate your feedback and thank you for choosing us for your care. [facility] Ambulatory Visit Summary Ambulatory Visit Summary ARIADNA MONTEIRO :1980 Visit Date:05/15/2024 Ambulatory Visit Instructions Your Care Team Attending Physician - DARA FARIAS, David Loera Primary Care Physician - TIM JANE, CLARI Ribera Referring Physician - EUSEBIO JANE, RODRIGUEZ Schmidt This Is Your Medications List Contact prescribing physician if questions or concerns allopurinol (allopurinol 100 mg Tab) hydrochlorothiazide (hydrochlorothiazide 12.5 mg Cap) tamsulosin (Flomax 0.4 mg Cap) Procedures Performed Ankle fracture, Colonoscopy. Discharge Vitals Heart Rate (Peripheral) 76 Respiratory Rate 16 Blood Pressure 118/76 Height 160 cm Height 63 in Weight 91 kg Weight 200.2 lb BMI 35.55 Medications What How Much When Instructions Unchanged allopurinol (allopurinol 100 mg Tab) 1 Tablets By Mouth Every day Contact prescribing physician if questions or concerns Unchanged hydrochlorothiazide (hydrochlorothiazide 12.5 mg Cap) 1 Capsules By Mouth Every day Contact prescribing physician if questions or concerns Unchanged tamsulosin (Flomax 0.4 mg Cap) 1 Capsules By Mouth 2 times a day Contact prescribing physician if questions or concerns Allergies Ultram (Rash) penicillins (Rash) Problems Ongoing - Any problem that you are currently receiving treatment for. Anxiety Arthritis Bilateral kidney stones Bipolar depression BMI 35.0-35.9,adult Chronic gouty arthritis Cluster headaches Degeneration of lumbar intervertebral disc Essential hypertension Flank pain Hydronephrosis with ureteral calculus Hypertension Insomnia Kidney stone Microscopic hematuria Nocturia Obesity due to excess calories Posttraumatic stress disorder Seropositive rheumatoid arthritis Patient Survey You may receive a survey via text or e-mail asking about your office visit. Please share your experience with us by completing your survey. We appreciate your feedback and thank you for choosing us for your care. [facility] Physician Referralon 08-23- 023 Physician Referral [phone] [id number] TIFF [facility] MRI LSPINE WO CONon 05-21-20 22 MRI [...] MICHAEL RAE Date: 2022-05-21 18:[address] [facility] XR FOREIGN BODY EYEon 2021 XR FOREIGN BODY EYE EXAMINATION: XR FOREIGN BODY EYE HISTORY: Foreign body in eye COMPARISON: No relevant comparison available. FINDINGS: ORBITS: Negative for a metallic foreign body. OTHER: Negative. IMPRESSION: 1. No metallic foreign body within the orbits. Electronically authenticated by: RIKI RIOS Date: 2022-05-21 10:36 Normal [facility] XR LSPINE MIN 4 VIEWSon 02-01 XR LSPINE MIN 4 VIEWS EXAMINATION: XR LS PINE MIN 4 VIEWS HISTORY: Low back pain [...] RIKI RIOS Date: 2022-02-22 11:[address] [facility] CBC with Diffon 09-23-2021 Abs. Basophil 0.02 k/uL Normal 0.0-0.2 [facility] Comment on above: Performed By: #### C ELOY LOPEZ, IPF ####[address] [place] [id number] Lab Director: Michael Meyer MD Abs.Imm.Granulocyte 0.02 k/uL Normal 0.00-0.30 [facility] Comment on above: Performed By: #### C JESSICA CP, IPF ####[address] , [facility] Lab Director: Michael Meyer MD Abs.Neutrophil (Seg) 1.28 k/uL Low 1.50-8.10 [facility] Comment on above: Performed By: #### C ELOY LOPEZ, IPF ####[address] , [place] [address] Lab Director: Michael Meyer MD Basophils/100 WBC (Bld) 1 % Normal 0-2 [facility] Comment on above: Performed By: #### C JESSICA CP, IPF ####[address] , [facility] Lab Director: Michael Meyer MD Eosinophils (Bld) [#/Vol] 0.00 10*3/uL Normal 0.00-0.44 [facility] Comment on above: Performed By: #### C JESSICA CP, IPF ####[address] [place] [address] Lab Director: Michael Meyer MD Eosinophils/100 WBC (Bld) 0 % Low 1-4 [facility] Comment on above: Performed By: #### C DP, CP, IPF ####[address] [place] [address] Lab Director: Michael Meyer MD Immature granulocytes/100 WBC (Bld) 1 % High 0 [facility] Comment on above: Performed By: #### C DP, CP, IPF ####[address] , [place] [address])[phone] Director: Michael Meyer MD Lymphocytes (Bld) [#/Vol] 0.73 10*3/uL Low 1.10-3.70 [facility] Comment on above: Performed By: #### C JESSICA, CP, IPF ####[address] , [facility]83[facility])[phone] Director: Michael Meyer MD Lymphocytes/100 WBC (Bld) 33 % Normal 24-43 [facility] Comment on above: Performed By: #### C JESSICA CP, IPF ####[address] [place] [address] Lab Director: Michael Meyer MD Monocytes (Bld) [#/Vol] 0.15 10*3/uL Normal 0.10-1.20 [facility] Comment on above: Performed By: #### C DP, CP, IPF ####[address] [place] [address] Lab Director: Michael Meyer MD Monocytes/100 WBC (Bld) 7 % Normal 3-12 [facility] Comment on above: Performed By: #### C DP, CP, IPF ####[address] [place] [address] Lab Director: Michael Meyer MD Morphology Fernando (Bld) [Interp] Platelet scan shows Normal Platelets Normal [facility] Comment on above: Performed By: #### C JESSICA CP, IPF ####[address] , [place] [id number] Lab Director: Michael Meyer MD Neutrophil (Seg) 58 % Normal 36-65 [facility] Comment on above: Performed By: #### C DP, CP, IPF ####[address] [place] [address] Lab Director: Michael Meyer MD Erythrocyte distribution width (RBC) [Ratio] 11.2 % Low 11.8-14.4 [facility] Comment on above: Performed By: #### C JESSICA CP, IPF ####[address] , [place] [address] Lab Director: Michael Meyer MD Hematocrit (Bld) [Volume fraction] 46.3 % Normal 40.7-50.3 [facility] Comment on above: Performed By: #### C ELOY LOPEZ, IPF ####[address] [place] [address] Lab Director: Michael Meyer MD Hemoglobin (Bld) [Mass/Vol] 15.6 g/dL Normal 13.0-17.0 [facility] Comment on above: Performed By: #### C DP CP, IPF ####[address] [place] [address] Lab Director: Michael Meyer MD MCH (RBC) [Entitic mass] 28.5 pg Normal 25.2-33.5 [facility] Comment on above: Performed By: #### C DP, CP, IPF ####[address] , [place] [address] Lab Director: Michael Meyer MD MCHC (RBC) [Mass/Vol] 33.7 g/dL Normal 28.4-34.8 [facility] Comment on above: Performed By: #### C DP, CP, IPF ####[address] , [place] [phone] Director: Michael Meyer MD MCV (RBC) [Entitic vol] 84.6 fL Normal 82.6-102.9 [facility] Comment on above: Performed By: #### C DP, CP, IPF ####[address] , [place] [phone] Director: Michael Meyer MD NRBC Automated 0.0 per 100 WBC Normal 0.0 [facility] Comment on above: Performed By: #### C DP, CP, IPF ####[address] , [place] [id number])[phone] Director: Michael Meyer MD Platelet Count See Reflexed IPF Result Normal 138-453 [facility] Comment on above: Performed By: #### C DP, CP, IPF ####[address] , [place] [phone] Director: Michael Meyer MD RBC (Bld) [#/Vol] 5.47 10*6/uL Normal 4.21-5.77 [facility] Comment on above: Performed By: #### C DP, CP, IPF ####[address] [place] [address] Lab Director: Michael Meyer MD WBC (Bld) [#/Vol] 2.2 10*3/uL Low 3.5-11.3 [facility] Comment on above: Performed By: #### C DP, CP, IPF ####[address] [place] [address] Lab Director: Michael Meyer MD Auto Diff Performed NOT REPORTED Normal [facility] Comment on above: Performed By: #### C DP, CP, IPF ####[facility] , [place] [address] Lab Director: Michael Meyer MD MPV NOT REPORTED Normal 8.1-13.5 [facility] Comment on above: Performed By: #### C DP, CP, IPF ####[facility] , [place] [address] Lab Director: Michael Meyer MD Platelet Comment NOT REPORTED Normal [facility] Comment on above: Performed By: #### C DP, CP, IPF ####[address] [place] [address] Lab Director: Michael Meyer MD RBC morphology finding Nom (Bld) NOT REPORTED Normal [facility] Comment on above: Performed By: #### C DP, CP, IPF ####[address] [place] [address] Lab Director: Michael Meyer MD WBC Morphology NOT REPORTED Normal [facility] Comment on above: Performed By: #### C DP, CP, IPF ####[address] , [place] [address] Lab Director: Michael Meyer MD Comp Metabolic Profon 2020 (cont.) Normal [facility] Comment on above: Result Comment: Aver age GFR for 40-49 years old: 99 mL/min/1.73sq m Chronic Kidney Disease: <60 mL/min/1.73sq m Kidney failure: <15 mL/min/1.73sq m eGFR calculated using average adult body mass. Additional eGFR calculator available at: http://www.[employer].Invaluable/multiple_crcl_2012.htm Performed By: #### C DP, CP, IPF ####[address] , [place] [address] Lab Director: Michael Meyer MD Albumin [Mass/Vol] 4.1 g/dL Normal 3.5-5.2 [facility] Comment on above: Performed By: #### C DP, CP, IPF ####[address] [place] [address] Lab Director: Michael Meyer MD Albumin/Glob Ratio 1.1 Normal 1.0-2.5 [facility] Comment on above: Performed By: #### C DP, CP, IPF ####[address] [place] [address] Lab Director: Michael Meyer MD Alkaline Phos 87 U/L Normal 40-129 [facility] Comment on above: Performed By: #### C DP, CP, IPF ####[address] , [place] [address] Lab Director: Michael Meyer MD ALT [Catalytic activity/Vol] 65 U/L High 5-41 [facility] Comment on above: Performed By: #### C DP, CP, IPF ####[address] [place] [address] Lab Director: Michael Meyer MD Anion gap [Moles/Vol] 13 mmol/L Normal 9-17 [facility] Comment on above: Performed By: #### C DP, CP, IPF ####[address] [place] [address] Lab Director: Michael Meyer MD AST [Catalytic activity/Vol] 68 U/L High <40 [facility] Comment on above: Performed By: #### C DP, CP, IPF ####[address] [place] [address] Lab Director: Michael Meyer MD Bilirubin [Mass/Vol] 0.52 mg/dL Normal 0.3-1.2 [facility] Comment on above: Performed By: #### C DP, CP, IPF ####[address] , [place] [address] Lab Director: Michael Meyer MD BUN/CRE Ratio 8 Low 9-20 [facility] Comment on above: Performed By: #### C DP, CP, IPF ####[address] , [place] [address] lab Director: Michael Meyer MD Calcium [Mass/Vol] 8.8 mg/dL Normal 8.6-10.4 [facility] Comment on above: Performed By: #### C DP, CP, IPF ####[address] , [place] [address] lab Director: Michael Meyer MD Chloride [Moles/Vol] 100 mmol/L Normal 98-107 [facility] Comment on above: Performed By: #### C DP, CP, IPF ####[address] , [place] [address]238[address] lab Director: Michael Meyer MD CO2 [Moles/Vol] 23 mmol/L Normal 20-31 [facility] Comment on above: Performed By: #### C DP CP, IPF ####[address] , [place] 40[address] lab Director: Michael Meyer MD Creatinine [Mass/Vol] 1.55 mg/dL High 0.70-1.20 [facility] Comment on above: Performed By: #### C DP, CP, IPF ####[address] , [place] [address] lab Director: Michael Meyer MD GFR, Amer >60 Normal >60 [facility] Comment on above: Performed By: #### C DP, CP, IPF ####[address] , [place] [address] lab Director: Michael Meyer MD GFR,non Amer 50 mL/min Low >60 [facility] Comment on above: Performed By: #### C DP, CP, IPF ####[address] , [place] [address] Lab Director: Michael Meyer MD Glucose [Mass/Vol] 94 mg/dL Normal 70-99 [facility] Comment on above: Performed By: #### C DP, CP, IPF ####[address] , [place] [address] Lab Director: Michael Meyer MD Potassium [Moles/Vol] 3.9 mmol/L Normal 3.7-5.3 [facility] Comment on above: Performed By: #### C DP, CP, IPF ####[address] , [place] [id number] lab Director: Michael Meyer MD Protein [Mass/Vol] 7.9 g/dL Normal 6.4-8.3 [facility] Comment on above: Performed By: #### C DP, CP, IPF ####[address] , [place] [address] Lab Director: Michael Meyer MD Sodium [Moles/Vol] 136 mmol/L Normal 135-144 [facility] Comment on above: Performed By: #### C DP, CP, IPF ####[address] , [place] [address] Lab Director: Michael Meyer MD Staging: Normal [facility] Comment on above: Result Comment: Stag e 1: Some kidney damage normal GFR Stage 2: Mild kidney damage GFR 60-89 Stage 3: Moderate kidney damage GFR 30-59 Stage 4: Severe kidney damage GFR 15-29 Stage 5: Severe kidney damage GFR <15 ESRD - chronic treatment by dialysis or transplant Performed By: #### C DP, CP, IPF ####[address] , [place] [address] Lab Director: Michael Meyer MD Urea nitrogen [Mass/Vol] 13 mg/dL Normal 6-20 [facility] Comment on above: Performed By: #### C DP, CP, IPF ####[facility] , [place] [address] [facility] Director: Michael Meyer MD Lactic Acidon 09-23-2021 Lactate [Moles/Vol] 0.9 mmol/L Normal 0.5-2.2 [facility] Comment on above: Performed By: #### L ACTIC ####[facility] [address] [facility] Director: Michael Meyer MD Lactic Acid,Whole Bl NOT REPORTED Normal 0.7-2.1 [facility] Comment on above: Performed By: #### L ACTIC ####[facility] , [place] 9[address] [facility] Director: Michael Meyer MD PLT, Immature Fract.on 09-23 Platelet, Fluoresc. 42 k/uL Low 138-453 [facility] Comment on above: Performed By: #### C DP, CP, IPF #### [address] [place], [place] [address] Research Attorney: Michael Meyer MD PLT, Immature Fract. 1.2 % Normal 1.1-10.3 [facility] Comment on above: Performed By: #### C DP, CP, IPF #### [facility] [address] [place], [place] [phone] Research Attorney: Michael Meyer MD XR CHEST (SINGLE VIEW FRONTA L)on 09-23-2021 XR CHEST (SINGLE VIEW FRONTAL) EXAMINATION: ONE XRAY VIEW OF THE CHEST 09/22/2021 10:38 pm COMPARISON: 04/20/2019 HISTORY: ORDERING SYSTEM PROVIDED HISTORY: sob cough and pos covid test TECHNOLOGIST PROVIDED HISTORY: sob cough and pos covid test FINDINGS: Heart size and pulmonary vasculature are normal. Minor patchy interstitial/airspace opacities are present bilaterally. Lung volumes are low. No pneumothorax or pleural effusion. Surrounding structures are unremarkable. IMPRESSION: Findings compatible with early COVID-19 pneumonia. Interpreted by: Will Calderón Signed by: Will Calderón 09/22/21 Final result Normal [facility] Resp Viral Panelon 1 Adenovirus Not detected Normal [facility] Comment on above: Performed By: #### R PASTRYCOOK ####[facility] [address] [place], [place] [phone] Director: Juan R [address] [place] [address] Lab Director: MD Guille Oviedodet.parapertussis Not detected Normal [facility] Comment on above: Performed By: #### R PASTRYCOOK ####[facility] [address]sdwrf[address] [place], [place] [id number])[phone] Director: Juan [facility] [place] [address] Lab Director: Michael Meyer MD Bordetella pertussis Not detected Normal [facility] Comment on above: Performed By: #### R PASTRYCOOK ####[facility] Hjldsjmvbudn6[address] [place], [place] [id number])[phone] Director: Juan R Tang[address] [place] [address] Lab Director: Michael Meyer MD Chlamyd.pneumoniae Not detected Normal [facility] Comment on above: Performed By: #### R PASTRYCOOK ####[facility] [address] [place], [place] [id number])[phone] Director: Juan R [address] [place] [address] Lab Director: Michael Meyer MD Coronavirus 229E Not detected [facility] Comment on above: Performed By: #### R PASTRYCOOK ####[facility] [address] [place] [address] Lab Director: Juan R [address] [place] [address] Lab Director: Michael Meyer MD Coronavirus HKU1 Not detected [facility] Comment on above: Performed By: #### R PASTRYCOOK ####[facility] [address] [place] [address] Lab Director: [facility] [place] [address] Lab Director: Michael Meyer MD Coronavirus NL63 Not detected [facility] Comment on above: Performed By: #### R PASTRYCOOK ####[facility] Yrzfwhmjxcij7469 [place], [place] [phone])[phone] Director: Juan R [address] [place] [address] Lab Director: Michael Meyer MD Coronavirus OC43 Not detected [facility] Comment on above: Performed By: #### R PASTRYCOOK ####[facility] [address] [place] [address] Lab Director: Juan R [address] [place] [address] Lab Director: Michael Meyer MD Human Metapneumo Not detected [facility] Comment on above: Performed By: #### R PASTRYCOOK ####[facility] [address] [place] [address] Lab Director: Juan [facility] [place] [address] Lab Director: Michael Meyer MD Influenza A Not detected [facility] Comment on above: Performed By: #### R PASTRYCOOK ####[facility] [address] [place] [address] Lab Director: Juan R [address] [place] [address] Lab Director: Michael Meyer MD Influenza B Not detected Normal [facility] Comment on above: Performed By: #### R PASTRYCOOK ####[facility] [address] [place], [place] [id number])[phone] Director: Juan R [facility] [place] [address] Lab Director: Michael Meyer MD Mycoplas.pneumoniae Not detected Normal [facility] Comment on above: Result Comment: Perf ormed by multiplexed nucleic acid assay. Performed By: #### R PASTRYCOOK ####[facility] [address] [place], [place] [id number])[phone] Director: Juan R [address] [place] [address] Lab Director: Michael Meyer MD Parainfluenza 1 Not detected [facility] Comment on above: Performed By: #### R PASTRYCOOK ####[facility] [address] [place], [place] [id number])[phone] Director: Juan R [address] [place] [address] Lab Director: Michael Meyer MD Parainfluenza 2 Not detected [facility] Comment on above: Performed By: #### R PASTRYCOOK ####[facility] [address] [place], [place] [id number])[phone] Director: Juan R [address] [place] [address] Lab Director: Michael Meyer MD Parainfluenza 3 Not detected [facility] Comment on above: Performed By: #### R PASTRYCOOK ####[facility] [address] [place], [place] [id number])[phone] Director: Juan R [address] [place] [address] Lab Director: Michale Meyer MD Parainfluenza 4 Not detected Normal [facility] Comment on above: Performed By: #### R PASTRYCOOK ####[facility] [address] [place], [place] [id number])[phone] Director: Juan R [address] [place] [address] Lab Director: Michael Meyer MD Resp Syncytial Virus Not detected Normal [facility] Comment on above: Performed By: #### R PASTRYCOOK ####[facility] [address] [place], [place] [id number])[phone] Director: Juan R [address] [place] [address] Lab Director: Michael Meyer MD Rhino/Enterovirus Not detected Normal [facility] Comment on above: Performed By: #### R PASTRYCOOK ####[facility] [address] [place], [place] [id number])[phone] Director: Juan R [address] [place] [address] Lab Director: Michael Meyer MD SARS-CoV-2 (COVID-19) RNA LYNDON+probe Ql (Unsp spec) Detected Abnormal [facility] Comment on above: Result Comment: Resu lts reported to the appropriate Health Department Performed By: #### R PASTRYCOOK ####[facility] [address] [place], [place] [id number])[phone] Director: Juan R [address] [place] [address] Lab Director: Michael Meyer MD Resp Viral Panelon Source: .NASOPHARYNGEAL SWAB Normal [facility] Comment on above: Performed By: #### R PASTRYCOOK ####[facility] [address] [place] [address] Lab Director: Juan R [facility] , [place] [id number] Lab Director: Michael Meyer MD Influenza A H1 NOT REPORTED Normal [facility] Comment on above: Performed By: #### R PASTRYCOOK ####[facility] [address] [place] [address] Lab Director: Juan R [facility] [place], [place] [id number] Lab Director: Michael Meyer MD Influenza A H1-2009 NOT REPORTED Normal [facility] Comment on above: Performed By: #### R PASTRYCOOK ####[address] [address] Lab Director: Juan R [address] [place] [address] Lab Director: Michael Meyer MD Influenza A H3 NOT REPORTED Normal [facility] Comment on above: Performed By: #### R PASTRYCOOK ####[address] [place] [address] Lab Director: Juan R Patricia[address] [place] [address] Lab Director: Michael Meyer MD No Panel Informationon 09-13 No acute findings. [facility] CONSOLID[facility] EXAMINATION: THREE XRAY VIEWS OF THE RIGHT ANKLE; THREE XRAY VIEWS OF THE LEFT FOOT 09/13/2021 9:16 am COMPARISON: None. HISTORY: ORDERING SYSTEM PROVIDED HISTORY: Pain TECHNOLOGIST PROVIDED HISTORY: Pain FINDINGS: No acute fracture demonstrated. 2 threaded screws noted medial malleolus from repair prior injury. Alignment anatomic. Small plantar and dorsal calcaneal spurs present. Cdxj-xe-gbbovlep degenerative change primarily midfoot. Overall alignment anatomic. Soft tissues unremarkable. [facility] CONSOLID[facility] Art DO Jeronimo - 09/13/2021 EXAMINATION: THREE XRAY VIEWS OF THE RIGHT ANKLE; THREE XRAY VIEWS OF THE LEFT FOOT 09/13/2021 9:16 am COMPARISON: None. HISTORY: ORDERING SYSTEM PROVIDED HISTORY: Pain TECHNOLOGIST PROVIDED HISTORY: Pain FINDINGS: No acute fracture demonstrated. 2 threaded screws noted medial malleolus from repair prior injury. Alignment anatomic. Small plantar and dorsal calcaneal spurs present. Crly-wm-bthhfdre degenerative change primarily midfoot. Overall alignment anatomic. Soft tissues unremarkable. IMPRESSION: No acute findings. Pops Phone: Pops Phone: No acute findings. [facility] CONSOL[facility] EXAMINATION: THREE XRAY VIEWS OF THE RIGHT FOOT; THREE XRAY VIEWS OF THE LEFT ANKLE 09/13/2021 9:14 am COMPARISON: None. HISTORY: ORDERING SYSTEM PROVIDED HISTORY: pain TECHNOLOGIST PROVIDED HISTORY: pain FINDINGS: No acute fracture demonstrated. Alignment is anatomic. 2 threaded screws noted within the medial malleolus. Ihzm-de-mtdqebsw degenerative change primarily midfoot. Small plantar and dorsal calcaneal spurs present. Soft tissues unremarkable. [facility] CONSOLIDATED ArtVicDO cordell - 09/13/2021 EXAMINATION: THREE XRAY VIEWS OF THE RIGHT FOOT; THREE XRAY VIEWS OF THE LEFT ANKLE 09/13/2021 9:14 am COMPARISON: None. HISTORY: ORDERING SYSTEM PROVIDED HISTORY: pain TECHNOLOGIST PROVIDED HISTORY: pain FINDINGS: No acute fracture demonstrated. Alignment is anatomic. 2 threaded screws noted within the medial malleolus. Idkz-fb-eoqywxwt degenerative change primarily midfoot. Small plantar and dorsal calcaneal spurs present. Soft tissues unremarkable. IMPRESSION: No acute findings. Pops Phone: No Panel InformationOrdered By: Jeronimo Art on 09-13-2021 Pops Phone: XR ANKLE LEFT (MIN 3 VIEWS)o n 09-13-2021 XR ANKLE LEFT (MIN 3 VIEWS) EXAMINATION: THREE XRAY VIEWS OF THE RIGHT FOOT; THREE XRAY VIEWS OF THE LEFT ANKLE 09/13/2021 9:14 am COMPARISON: None. HISTORY: ORDERING SYSTEM PROVIDED HISTORY: pain TECHNOLOGIST PROVIDED HISTORY: pain FINDINGS: No acute fracture demonstrated. Alignment is anatomic. 2 threaded screws noted within the medial malleolus. Aosc-yn-gtpmkmiy degenerative change primarily midfoot. Small plantar and dorsal calcaneal spurs present. Soft tissues unremarkable. IMPRESSION: No acute findings. Interpreted by: Jeronimo Art DO Signed by: Jeronimo Art DO 09/13/21 Final result Normal [facility] Radiology Study observation (narrative) Pops Phone: XR ANKLE RIGHT (MIN 3 VIEWS) [...] Small plantar and dorsal calcaneal spurs present. Gral-uw-ofxwreda degenerative change primarily midfoot. Overall alignment anatomic. Soft tissues unremarkable. IMPRESSION: No acute findings. Interpreted by: Jeronimo Art DO Signed by: Jeronimo Art DO 09/13/21 Final result Normal [facility] Radiology Study observation (narrative) Pops Phone: XR FOOT LEFT (MIN 3 VIEWS)on [...] Small plantar and dorsal calcaneal spurs present. Pnrp-cq-rslmmbxn degenerative change primarily midfoot. Overall alignment anatomic. Soft tissues unremarkable. IMPRESSION: No acute findings. Interpreted by: Jeronimo Art DO Signed by: Jeronimo Art DO 09/13/21 Final result Normal [facility] Radiology Study observation (narrative) Pops Phone: XR FOOT RIGHT (MIN 3 VIEWS)o n 09-13-2021 XR FOOT RIGHT (MIN 3 VIEWS) EXAMINATION: THREE XRAY VIEWS OF THE RIGHT FOOT; THREE XRAY VIEWS OF THE LEFT ANKLE 09/13/2021 9:14 am COMPARISON: None. HISTORY: ORDERING SYSTEM PROVIDED HISTORY: pain TECHNOLOGIST PROVIDED HISTORY: pain FINDINGS: No acute fracture demonstrated. Alignment is anatomic. 2 threaded screws noted within the medial malleolus. Uvrx-fd-cobrpnph degenerative change primarily midfoot. Small plantar and dorsal calcaneal spurs present. Soft tissues unremarkable. IMPRESSION: No acute findings. Interpreted by: Jeronimo Art DO Signed by: Jeronimo Art DO 09/13/21 Final result Normal [facility] Radiology Study observation (narrative) Pops Phone: XR ABDOMEN (KUB) (SINGLE AP VIEW)on [...] Kerri Scott MD 05/08/21 Final result Normal [facility] XR ABDOMEN (KUB) (SINGLE AP VIEW)Ordered By: Sahil Interiano on 05-08-2021 Nonobstructive bowel gas pattern. No radiodensities diagnostic of nephroliths. Pops Phone: EXAMINATION: ONE SUPINE XRAY VIEW(S) OF THE ABDOMEN 05/08/2021 10:35 am COMPARISON: 01 May 2021 HISTORY: ORDERING SYSTEM PROVIDED HISTORY: Microscopic hematuria FINDINGS: The bowel gas pattern is non obstructive. No organomegaly, free air or abnormal calcifications are noted. Mild levo scoliotic curvature is present. Pops Phone: Luther, M[facility] Incoming Radiant Results From [employer] - 05/08/2021 2:06 PM EDT EXAMINATION: ONE SUPINE XRAY VIEW(S) OF THE ABDOMEN 05/08/2021 10:35 am COMPARISON: 01 May 2021 HISTORY: ORDERING SYSTEM PROVIDED HISTORY: Microscopic hematuria FINDINGS: The bowel gas pattern is non obstructive. No organomegaly, free air or abnormal calcifications are noted. Mild levo scoliotic curvature is present. IMPRESSION: Nonobstructive bowel gas pattern. No radiodensities diagnostic of nephroliths. Pops Phone: Pops Phone: No Panel InformationOrdered By: Fatuma Sanchez on 05-01-2021 1. No acute osseous abnormality of the right ankle. Posttraumatic and postsurgical changes as above. Mild tibiotalar joint osteoarthritis. 2. Acute osseous abnormality of the right foot. Chronic appearing well-defined erosion or subchondral cyst at the base of the 3rd metatarsal without associated joint space loss. This is a nonspecific finding. [employer] Phone: EXAMINATION: THREE XRAY VIEWS OF THE [...] base of the 3rd metatarsal is nonspecific. Pops Phone: Luther, pn Incoming Radiant Results From [employer] - 05/01/2021 5:46 PM EDT EXAMINATION: THREE [...] space loss. This is a nonspecific finding. Pops Phone: Pops Phone: Unremarkable left wrist/left hand series. There are no plain radiographic findings to suggest an active synovial process of bone as rheumatoid arthritis [employer] Phone: EXAMINATION: 2 XRAY VIEWS OF THE LEFT WRIST; TWO XRAY VIEWS OF THE LEFT HAND 05/01/2021 11:10 am COMPARISON: None. HISTORY: ORDERING SYSTEM PROVIDED HISTORY: Seropositive rheumatoid arthritis (HCC) FINDINGS: The bones and joints are unremarkable without definite fracture, dislocation, significant degenerative/erosive change, radiopaque foreign body, abnormal soft tissue calcification or bony destructive lesion Pops Phone: [place], [facility] Incoming Radiant Results From [employer] - 05/01/2021 11:26 AM EDT EXAMINATION: 2 XRAY VIEWS OF THE LEFT WRIST; TWO XRAY VIEWS OF THE LEFT HAND 05/01/2021 11:10 am COMPARISON: None. HISTORY: ORDERING SYSTEM PROVIDED HISTORY: Seropositive rheumatoid arthritis (HCC) FINDINGS: The bones and joints are unremarkable without definite fracture, dislocation, significant degenerative/erosive change, radiopaque foreign body, abnormal soft tissue calcification or bony destructive lesion IMPRESSION: Unremarkable left wrist/left hand series. There are no plain radiographic findings to suggest an active synovial process of bone as rheumatoid arthritis Pops Phone: Pops Phone: XR ABDOMEN (KUB) (SINGLE AP VIEW)on [...] MD 05/01/21 Final result Normal [facility] XR ABDOMEN (KUB) (SINGLE AP VIEW)Ordered By: Sahil Interiano on 05-01-2021 No significant radiographic abnormality in the abdomen. [employer]ops Phone: EXAMINATION: ONE SUPINE XRAY VIEW(S) OF THE ABDOMEN 05/01/2021 10:51 am COMPARISON: None. HISTORY: ORDERING SYSTEM PROVIDED HISTORY: Pain FINDINGS: Nonobstructive bowel gas pattern. No abnormal calcifications overlying the gallbladder urinary tract. No mass effect. Osseous structures grossly intact. Pops Phone: [place], pn Incoming Radiant Results From [employer] - 05/01/2021 11:21 AM EDT EXAMINATION: ONE SUPINE XRAY VIEW(S) OF THE ABDOMEN 05/01/2021 10:51 am COMPARISON: None. HISTORY: ORDERING SYSTEM PROVIDED HISTORY: Pain FINDINGS: Nonobstructive bowel gas pattern. No abnormal calcifications overlying the gallbladder urinary tract. No mass effect. Osseous structures grossly intact. IMPRESSION: No significant radiographic abnormality in the abdomen. Pops Phone: Pops Phone: XR ANKLE LEFT (MIN 3 VIEWS)o n 07-30-2021 XR ANKLE LEFT (MIN 3 VIEWS) EXAMINATION: [...] MD 05/01/21 Final result Normal [facility] XR ANKLE LEFT (MIN 3 VIEWS)O rdered By: Fatuma Sanchez on 05-01-2021 Moderate calcaneal spurring Pops Phone: EXAMINATION: THREE XRAY VIEWS OF THE LEFT ANKLE 05/01/2021 11:12 am COMPARISON: None. HISTORY: ORDERING SYSTEM PROVIDED HISTORY: Seropositive rheumatoid arthritis (HCC) FINDINGS: There is moderate spurring of the superior aspect of the os calcis. The bones and joints are otherwise unremarkable without definite effusion, acute fracture, dislocation radiopaque foreign body or bony destructive lesion Pops Phone: [place], pn Incoming Radiant Results From [employer] - 05/01/2021 11:21 AM EDT EXAMINATION: THREE [...] bony destructive lesion IMPRESSION: Moderate calcaneal spurring Pops Phone: Pops Phone: XR ANKLE RIGHT (MIN 3 VIEWS) [...] MD 05/01/21 Final result Normal [facility] XR FOOT LEFT (2 VIEWS)on XR [...] unremarkable without definite fracture, dislocation, more significant degenerative/erosive change, abnormal soft tissue calcification, periostitis, radiopaque foreign body or bony destructive lesion IMPRESSION: Mild degenerative changes There are no plain radiographic findings to suggest an active synovial process of bone as rheumatoid arthritis Interpreted by: Clarissa Gomez MD Signed by: Clarissa Gomez MD 05/01/21 Final result Normal [facility] XR FOOT LEFT (2 VIEWS)Ordere d By: Fatuma Sanchez on 05-01-2021 Mild degenerative changes There are no plain radiographic findings to suggest an active synovial process of bone as rheumatoid arthritis [employer] Work Phone: EXAMINATION: TWO XRA Y VIEWS OF THE LEFT FOOT 05/01/2021 11:11 [...] unremarkable without definite fracture, dislocation, more significant degenerative/erosive change, abnormal soft tissue calcification, periostitis, radiopaque foreign body or bony destructive lesion Pops Phone: [place], [facility] Incoming Radiant Results From [employer] - 05/01/2021 11:29 AM EDT EXAMINATION: TWO [...] unremarkable without definite fracture, dislocation, more significant degenerative/erosive change, abnormal soft tissue calcification, periostitis, radiopaque foreign body or bony destructive lesion IMPRESSION: Mild degenerative changes There are no plain radiographic findings to suggest an active synovial process of bone as rheumatoid arthritis Pops Phone: Pops Phone: XR FOOT RIGHT (2 VIEWS)on XR [...] MD 05/01/21 Final result Normal [facility] XR HAND LEFT (2 VIEWS)on XR HAND LEFT (2 VIEWS) EXAMINATION: 2 XRAY VIEWS OF THE LEFT WRIST; TWO XRAY VIEWS OF THE LEFT HAND 05/01/2021 11:10 am COMPARISON: None. HISTORY: ORDERING SYSTEM PROVIDED HISTORY: Seropositive rheumatoid arthritis (HCC) FINDINGS: The bones and joints are unremarkable without definite fracture, dislocation, significant degenerative/erosive change, radiopaque foreign body, abnormal soft tissue calcification or bony destructive lesion IMPRESSION: Unremarkable left wrist/left hand series. There are no plain radiographic findings to suggest an active synovial process of bone as rheumatoid arthritis Interpreted by: Clarissa Gomez MD Signed by: Clarissa Gomez MD 05/01/21 Final result Normal [facility] XR HAND RIGHT (2 VIEWS)on XR HAND RIGHT (2 VIEWS) EXAMINATION: TWO XRAY VIEWS OF THE RIGHT HAND 05/01/2021 11:12 am COMPARISON: None. HISTORY: ORDERING SYSTEM PROVIDED HISTORY: Seropositive rheumatoid arthritis (HCC) FINDINGS: The bones and joints are unremarkable without definite fracture, dislocation, significant degenerative/erosive change, radiopaque foreign body, abnormal soft tissue calcification or bony destructive lesion IMPRESSION: Unremarkable two-view right hand series. There are no definite plain radiographic findings to suggest an active synovial process of bone as rheumatoid arthritis Interpreted by: Clarissa Gomez MD Signed by: Clarissa Gomez MD 05/01/21 Final result Normal [facility] XR HAND RIGHT (2 VIEWS)Order ed By: Fatuma Sanchez on 05-01-2021 Unremarkable two-vie w right hand series. There are no definite plain radiographic findings to suggest an active synovial process of bone as rheumatoid arthritis [employer] Phone: EXAMINATION: TWO XRA Y VIEWS OF THE RIGHT HAND 05/01/2021 11:12 am COMPARISON: None. HISTORY: ORDERING SYSTEM PROVIDED HISTORY: Seropositive rheumatoid arthritis (HCC) FINDINGS: The bones and joints are unremarkable without definite fracture, dislocation, significant degenerative/erosive change, radiopaque foreign body, abnormal soft tissue calcification or bony destructive lesion Pops Phone: Luther, pn Incoming Radiant Results From [employer] - 05/01/2021 11:24 AM EDT EXAMINATION: TWO XRAY VIEWS OF THE RIGHT HAND 05/01/2021 11:12 am COMPARISON: None. HISTORY: ORDERING SYSTEM PROVIDED HISTORY: Seropositive rheumatoid arthritis (HCC) FINDINGS: The bones and joints are unremarkable without definite fracture, dislocation, significant degenerative/erosive change, radiopaque foreign body, abnormal soft tissue calcification or bony destructive lesion IMPRESSION: Unremarkable two-view right hand series. There are no definite plain radiographic findings to suggest an active synovial process of bone as rheumatoid arthritis Pops Phone: Pops Phone: XR WRIST LEFT (2 VIEWS)on XR WRIST LEFT (2 VIEWS) EXAMINATION: 2 XRAY VIEWS OF THE LEFT WRIST; TWO XRAY VIEWS OF THE LEFT HAND 05/01/2021 11:10 am COMPARISON: None. HISTORY: ORDERING SYSTEM PROVIDED HISTORY: Seropositive rheumatoid arthritis (HCC) FINDINGS: The bones and joints are unremarkable without definite fracture, dislocation, significant degenerative/erosive change, radiopaque foreign body, abnormal soft tissue calcification or bony destructive lesion IMPRESSION: Unremarkable left wrist/left hand series. There are no plain radiographic findings to suggest an active synovial process of bone as rheumatoid arthritis Interpreted by: Clarissa Gomez MD Signed by: Clarissa Gomez MD 05/01/21 Final result Normal [facility] XR WRIST RIGHT (2 VIEWS)on 0 05-01-2021 XR WRIST RIGHT (2 VIEWS) EXAMINATION: 2 XRAY VIEWS OF THE RIGHT WRIST; 05/01/2021 11:11 am COMPARISON: None. HISTORY: ORDERING SYSTEM PROVIDED HISTORY: Seropositive rheumatoid arthritis (HCC) FINDINGS: The bones and joints are unremarkable without definite fracture, dislocation, significant degenerative/erosive change, radiopaque foreign body or bony destructive lesion IMPRESSION: Unremarkable two-view right wrist series Interpreted by: Clarissa Gomez MD Signed by: Clarissa Gomez MD 05/01/21 Final result Normal [facility] XR WRIST RIGHT (2 VIEWS)Orde red By: Fatuma Sanchez on 05-01-2021 Unremarkable two-vie w right wrist series [employer] Phone: EXAMINATION: 2 XRAY VIEWS OF THE RIGHT WRIST; 05/01/2021 11:11 am COMPARISON: None. HISTORY: ORDERING SYSTEM PROVIDED HISTORY: Seropositive rheumatoid arthritis (HCC) FINDINGS: The bones and joints are unremarkable without definite fracture, dislocation, significant degenerative/erosive change, radiopaque foreign body or bony destructive lesion Pops Phone: Luther, pn Incoming Radiant Results From [employer] - 05/01/2021 11:23 AM EDT EXAMINATION: 2 XRAY VIEWS OF THE RIGHT WRIST; 05/01/2021 11:11 am COMPARISON: None. HISTORY: ORDERING SYSTEM PROVIDED HISTORY: Seropositive rheumatoid arthritis (HCC) FINDINGS: The bones and joints are unremarkable without definite fracture, dislocation, significant degenerative/erosive change, radiopaque foreign body or bony destructive lesion IMPRESSION: Unremarkable two-view right wrist series Pops Phone: Pops Phone: XR WRIST RIGHT (MIN 3 VIEWS) [...] MD 03/01/21 Final result Normal [facility] XR WRIST RIGHT (MIN 3 VIEWS) Ordered By: Riki Tucker on 03-01-2021 Unremarkable right wrist. [employer] Phone: EXAMINATION: 3 XRAY VIEWS OF THE [...] degenerative findings. No appreciable soft tissue abnormality. Pops Phone: Luther, pn Incoming Radiant Results From [employer] - 03/01/2021 7:52 PM EDT EXAMINATION: 3 [...] soft tissue abnormality. IMPRESSION: Unremarkable right wrist. Pops Phone: Pops Phone: XR KNEE RIGHT (1-2 VIEWS)on 11-07-2020 [...] MD Signed by: Damion Leung MD 11/07/20 CC Recipients: Yaritza Hensley APRN - CREDIT COLLECTIONS ANALYST - (authorizing provider) Final result Normal [facility] XR KNEE RIGHT (3 VIEWS)on Joint effusion witho ut acute osseous abnormality. [facility] [place] EXAMINATION: THREE XRAY VIEWS OF THE RIGHT [...] effusion. The periarticular soft tissues are unremarkable. [facility] [employer] [facility] [employer] [facility] [place], [facility] Incoming Radiant Results From [employer] - 09/04/2019 6:08 PM EST EXAMINATION: THREE [...] IMPRESSION: Joint effusion without acute osseous abnormality. [facility] [place] [facility])on 05-12-2019 No acute osseous abnormality. [facility] [place] EX[facility]: THREE XRAY VIEWS OF THE LEFT HAND 05/12/2019 12:22 pm COMPARISON: November 12, 2018 HISTORY: ORDERING SYSTEM PROVIDED HISTORY: pain TECHNOLOGIST PROVIDED HISTORY: pain FINDINGS: There is no evidence of acute fracture. There is normal alignment. No acute joint abnormality. No focal osseous lesion. No focal soft tissue abnormality. [facility] [employer], [facility] Incoming Radiant Results From Beyond [employer] - 05/12/2019 12:48 PM EDT EXAMINATION: THREE XRAY VIEWS OF THE LEFT HAND 05/12/2019 12:22 pm COMPARISON: November 12, 2018 HISTORY: ORDERING SYSTEM PROVIDED HISTORY: pain TECHNOLOGIST PROVIDED HISTORY: pain FINDINGS: There is no evidence of acute fracture. There is normal alignment. No acute joint abnormality. No focal osseous lesion. No focal soft tissue abnormality. IMPRESSION: No acute osseous abnormality. [facility] [place] MRI BRAIN WO CONTRASTon 04-03 MRI BRAIN WO CONTRAST EXAMINATION: MRI OF THE BRAIN WITHOUT CONTRAST 04/20/2019 11:54 am TECHNIQUE: Multiplanar multisequence MRI of the brain was performed without the administration of intravenous contrast. COMPARISON: None. HISTORY: ORDERING SYSTEM PROVIDED HISTORY: STROKE Initial evaluation. FINDINGS: INTRACRANIAL STRUCTURES/VENTRICLES: There is no acute infarct. The ventricles [...] Tiffanie Hughes MD 04/24/19 Final result Normal [facility] MRI CERVICAL SPINE WO CONTRA [...] Tiffanie Hughes MD 04/24/19 Final result Normal [facility] Vital Signs Date Time Vital Sign Value Performing Clinician Robson henry 05-15-2024 14:12-0400 Blood Pressure Location [facility] 05-15-2024 14:12-0400 Diastolic blood pressure 76 mm[Hg] David NILL [facility] 05-15-2024 14:12-0400 Heart rate 76 /min David NILL [facility] 05-15-2024 14:12-0400 Respiratory rate 16 /min David ArQuleL [facility] 05-15-2024 14:12-0400 Systolic blood pressure 118 mm[Hg] David NILL [facility] 09-13-2021 08:22-0500 Diastolic blood pressure 86 mm[Hg] Francis Yongrov DO Work Phone: [facility] [employer] 09-13-2021 08:22-0500 Systolic blood pressure 147 mm[Hg] Francis Bobrov DO Work Phone: [facility] 09-13-2021 08:20-0500 Body mass index (BMI) [Ratio] 37.2 kg/m2 Francis Bobrov DO Work Phone: [facility] [employer] 09-13-2021 08:20-0500 Body temperature 97.39 [degF] Francis Bobrov DO Work Phone: [facility] [employer] 09-13-2021 08:20-0500 Body weight 95.25 kg Francis Bobrov DO Work Phone: [facility] [employer] 09-13-2021 08:20-0500 Heart rate 85 /min Francis Bobrov DO Work Phone: [employer] 09-13-2021 08:20-0500 Respiratory rate 16 /min Francis Pinto DO Work Phone: [employer] 09-13-2021 08:20-0500 SaO2% (BldA) [Mass fraction] 99 % Francis Pinto DO Work Phone: [employer] 03-01-2021 18:28-0400 Diastolic blood pressure 96 mm[Hg] Clari Tim Work Phone: [employer] Work Phone: 03-01-2021 18:28-0400 Systolic blood pressure 151 mm[Hg] Clari Tim Work Phone: [employer] Work Phone: 03-01-2021 18:26-0400 Body temperature 98.71 [degF] Clari Tim Work Phone: [employer] Work Phone: 03-01-2021 18:26-0400 Heart rate 70 /min Clari Tim Work Phone: [employer] Work Phone: 03-01-2021 18:26-0400 Respiratory rate 18 /min [employer] Work Phone: [employer] Work Phone: 03-01-2021 18:26-0400 SaO2% (BldA) [Mass fraction] 98 % Clari Tim Work Phone: [employer] Work Phone: 09-06-2019 20:00-0500 Body Temperature 97.9 [degF] Oscar [facility] 09-06-2019 20:00-0500 BP Diastolic 100 mm[Hg] Oscar AdventEnna [place] , [place] 09-06-2019 20:00-0500 BP Systolic 154 mm[Hg] [facility] [place] 09-06-2019 20:00-0500 Pulse (Heart Rate) 89 /min Oscar Zuniga [facility], [place] 09-06-2019 20:00-0500 Pulse Oximetry 97 % [facility] , [place] 09-06-2019 20:00-0500 Respiratory Rate 19 /min [facility] [place] 09-04-2019 17:38-0500 BMI (Body Mass Index) 36.49 kg/m2 David Perez [facility], [place] 09-04-2019 17:38-0500 Body Temperature 98.2 [degF] David Perez [facility], [place] 09-04-2019 17:38-0500 Body weight 93.44 kg David Perez [facility], [place] 09-04-2019 17:38-0500 BP Diastolic 94 mm[Hg] David Perez [facility], [place] 09-04-2019 17:38-0500 BP Systolic 142 mm[Hg] [facility] [place] 09-04-2019 17:38-0500 Pulse (Heart Rate) 87 /min David Carter [facility], [place] 09-04-2019 17:38-0500 Pulse Oximetry 99 % David Perez [facility], [place] 09-04-2019 17:38-0500 Respiratory Rate 14 /min [facility] [place] 05-12-2019 12:15-0400 Body Temperature 98.01 [degF] Clari Glasgowhmann [facility], [place] 05-12-2019 12:14-0400 BP Diastolic 85 mm[Hg] [place] , [place] 05-12-2019 12:14-0400 BP Systolic 152 mm[Hg] [place] 05-12-2019 12:14-0400 Pulse (Heart Rate) 87 /min [place] 05-12-2019 12:14-0400 Pulse Oximetry 96 % [place] 05-12-2019 12:14-0400 Respiratory Rate 16 /min [facility] [place] [place] Encounters Encounter Date Encounter Type Care Provider Facility Start: 05-15-2024 End: 05-15-2024 ambulatory RODRIGUEZ KAPLAN Facility: [place] Start: 05-15-2024 End: 05-15-2024 Patient encounter procedure David Loera DARA [facility] [place] Start: 01-24-2024 End: 01-24-2024 ambulatory WILL SANTANA Not Available Start: 01-11-2024 End: 01-11-2024 ambulatory TIMOTHY Elkins APLING Not Available Start: 12-12-2023 End: 12-12-2023 ambulatory TIMOTHY B APLING Not Available Start: 11-28-2023 End: 11-29-2023 ambulatory TIMOTHY B APLING Not Available Start: 09-27-2023 ambulatory RODRIGUEZ Roxana EUSEBIO Facilit y:DARIAN Nicholas Start: 09-12-2023 End: 09-13-2023 ambulatory TIMOTHY B APLING Not Available Start: 08-22-2023 ambulatory RODRIGUEZ KAPLAN Facility: [place] Start: 08-12-2023 [facility] Start: 07-06-2022 End: 07-07-2022 ambulatory RODRIGUEZ KAPLAN Facility:[facility] Start: 05-21-2022 End: 05-22-2022 ambulatory RODRIGUEZ KAPLAN Facility:[facility] Start: 03-19-2022 End: 03-27-2022 ambulatory RODRIGUEZ KAPLAN Facility:[facility] Start: 02-22-2022 End: 02-23-[address] RIKI RIOS Facility:[facility] Start: 09-23-2021 End: 09-23-2021 [facility] Start: 09-21-2021 End: 09-21-2021 Emergency department patient visit CLARI A [facility] Start: 09-13-2021 End: 09-13-2021 Emergency department patient visit FRANCIS PINTO [facility] Start: 09-13-2021 End: 09-13-2021 Emergency department patient visit Francis Pinto DO Work Phone: [facility] ED Comment on above: Sprain of right foot , initial encounter (Primary Dx); Sprain of left ankle, unspecified ligament, initial encounter Start: 05-08-2021 End: 05-11-2021 ambulatory SAIHL ITNERIANO [facility] Start: 05-08-2021 End: 05-10-2021 Subsequent hospital visit by physician Karoline Meek Dr Room 4 [facility] Radiology Comment on above: Microscopic hematuri a; Flank pain; Hydronephrosis with ureteral calculus Start: 05-01-2021 End: 05-04-2021 ambulatory SAHIL INTERIANO [facility] Start: 05-01-2021 End: 05-03-2021 Subsequent hospital visit by physician Karoline Meek Dr Room 2 [facility] Radiology Comment on above: Seropositive rheumat oid arthritis (HCC) Pain Start: 03-01-2021 End: 03-01-2021 Emergency department patient visit CLARI Ribera [facility] Start: 03-01-2021 End: 03-01-2021 Emergency department patient [facility] Work Phone: [facility] ED Comment on above: Strain of right wris t, initial encounter (Primary Dx) Start: 11-07-2020 End: 11-10-2020 ambulatory YARITZA HENSLEY [facility] Start: 11-07-2020 End: 11-09-2020 [facility] Start: 09-06-2019 End: 09-06-2019 Emergency department patient visit Oscar Claytonimes Work Phone: [facility] ED Comment on above: Sprain of collateral ligament of right knee, initial encounter (Primary Dx) Start: 09-04-2019 End: 09-04-2019 Emergency department patient visit David Perez [facility] ED Comment on above: Injury of right knee , initial encounter (Primary Dx); Effusion of right knee joint Start: 05-12-2019 End: 05-12-2019 Emergency department patient visit [facility] ED Comment on above: Contusion of left coles nd including fingers, initial encounter (Primary Dx) Start: 04-20-2019 End: 04-20-2019 Emergency department patient visit JEAN [facility] Start: 07-29-2017 End: 07-30-2017 Ambulatory Nilo Mendez Facility:[facility]urosurgic [facility] Procedures Date Procedure Procedure Detail Performing Clinician Start: 09-13-2021 End: 09-13-2021 Radex ankle complete minimum 3 views Francis Pinto DO Work Phone: Start: 05-08-2021 Radiologic exam abdo men 1 view Sahil Luz Maria Interiano Work Phone: Start: 05-01-2021 End: 05-01-2021 Radex ankle complete minimum 3 views Fatuma Sanchez MD Work Phone: Start: 03-01-2021 Radex wrist complete minimum 3 views Riki Tucker PA-C Work Phone: Start: 09-04-2019 Radiologic examinati on knee 3 views David Perez Start: 05-12-2019 Radex hand minimum 3 views Itzel Tex Work Phone: Start: 04-20-2019 Mri brain brain stem w/o contrast material JEAN LEROY Start: 04-20-2019 Mri spinal canal cer vical w/o contrast matrl JEAN LEROY Start: 04-20-2019 IP CONSULT TO NEUROLOGY JEAN DIAMOND Fracture of ankle (disorder) David DIAMOND Plan of Treatment Date Care Activity Detail Author Start: 11-28-2027 DTaP/Tdap/Td vaccine (2 - Td or Tdap) DTaP/Tdap/Td vaccine (2 - Td or Tdap) [facility] Start: 11-28-2027 DTaP/Tdap/Td vaccine (2 - Td) DTaP/Tdap/Td vaccine (2 - Td) [facility] [place], [place] Start: 11-25-2021 End: 11-25-2021 Patient encounter procedure 11/25/2021 Office Visit Rheumatology Fatuma Sanchez MD [address] [place] [address] [facility] Start: 06-24-2021 End: 06-24-2021 Patient encounter procedure 06/24/2021 Office Visit Rheumatology Fatuma Sanchez MD [address] [place] [address] [phone] [facility] Start: 06-03-2021 Influenza vaccination [facility] Start: 2021 Lipid panel Lipid screen [facility] Start: 06-03-2020 Influenza vaccination Flu vaccine (# 1) [place], [place] Start: 06-03-2019 Influenza vaccination Flu vaccine (# 1) [place] Start: 2016 Diabetes screen Diabetes screen [facility] Start: 2000 DTaP/Tdap/Td vaccine (1 - Tdap) DTaP/Tdap/Td vaccine (1 - Tdap) [place], [place] Start: 1996 HIV screen HIV screen [place], [place] Start: 1996 HIV screening HIV screen [facility] Start: 1994 Varicella Vaccine (1 of 2 - 13+ 2-dose series) Varicella Vaccine (1 of 2 - 13+ 2-dose series) [place], [place] Start: 1993 COVID-19 Vaccine (1) COVID-19 Vaccin e (1) [facility] Start: 1992 DTaP/Tdap/Td vaccine (1 - Tdap) DTaP/Tdap/Td vaccine (1 - Tdap) [place], [place] Start: 1982 Varicella Vaccine (1 of 2 - 2-dose childhood series) Varicella Vaccine (1 of 2 - 2-dose childhood series) [facility] Start: 1981 Hepatitis C screening Hepatitis C sc reen [facility] End: 05-12-2019 Splint application Splint application Procedures STAT One Time for 1 Occurrences starting 05/12/2019 until 05/12/2019 [place] Comment on above: One Time for 1 Occur rences starting 05/12/2019 until 05/12/2019 Immunizations Immunization Date Immunization Notes Care Provider Deisy duong 07-14-2010 influenza virus vaccine, whole virus Clari [place], [place] NEGATED: Highlighted row has not occurred!05-11-2021 SARS-CoV-2 (COVID-19) Ad26 vaccine, recombinant David NILL [facility] Payers Date Payer Category Payer Unknown [id number] 2022 Medicaid [id number] 2020 Unknown [id number] 2019 Unknown [id number] 2019 Unknown [facility] [id number] xxxxxxxxx 2019-Present [address] [address] [place] [address] xxxxxxxxx [id number] [id number] 1981 Unknown [id number] 2.840.1.315146.3.579.2.175 1981 Unknown [id number] 2.0.1.436094.3.579.2.173 1981 Unknown [id number] 11.18.830.1.870245.3.579.2.173 1981 Unknown [id number] 2.840.1.632707.3.579.2.173 1981 Unknown [id number] 2.840.1.286716.3.579.2.173 1981 Unknown [id number] 2.840.1.962646.3.579.2.173 1981 Unknown [id number] 2.840.1.150140.3.579.2.173 1981 Unknown [id number] 2.16.840.1.664957.3.579.2.173 1981 Unknown [id number] 2.16.840.1.223586.3.579.2.173 1981 Unknown [id number] 2.16.840.1.347663.3.579.2.173 1981 Unknown [id number] 2.16.840.1.549682.3.579.2.173 1981 Unknown [id number] 2.16.840.1.724901.3.579.2.173 1981 Unknown [id number] 2.16.840.1.866612.3.579.2.173 1981 Unknown [id number] 2.16.840.1.114821.3.579.2.173 1981 Unknown [id number] 2.16840.1.324492.3.579.2.173 1981 Unknown [id number] 2.16.840.1.451551.3.579.2.173 1981 Unknown [id number] 2.16840.1.693657.3.579.2.173 1981 Unknown [id number] 2.16.840.1.866376.3.579.2.173 1981 Unknown [id number] 2.16840.1.200387.3.579.2.173 1981 Unknown [id number] 2.16.840.1.218939.3.579.2.173 1981 Unknown [id number] 2.16.840.1.070091.3.579.2.593 1981 Unknown [id number] 2.16.840.1.604823.3.579.2.593 1981 Unknown [id number] 2.16.840.1.047586.3.579.2.593 1981 Unknown [id number] 2.16.840.1.069269.3.579.2.593 1981 Unknown [id number] 2.16.840.1.116853.3.579.2.1259 1981 Unknown [id number] 2.16.840.1.390209.3.579.2.1259 1981 Unknown [id number] 2.16.840.1.427781.3.579.2.1259 1981 Unknown [id number] 2.16.840.1.514657.3.579.2.1259 1981 Unknown [id number] 2.16.840.1.117227.3.579.2.1259 1981 Unknown [id number] 2.16.840.1.227489.3.579.2.1259 1981 Unknown [id number] 2.16.840.1.911820.3.579.2.1259 1981 Unknown [id number] 2.16.840.1.111472.3.579.2.1259 1981 Unknown [id number] 2.16.840.1.714573.3.579.2.727 1981 Unknown [id number] 2.16.840.1.410693.3.579.2.727 1959 Unknown [id number] 1.2.840.458863.1.13.239.2.7.3.6 [id number] 1959 Unknown [id number] Social History Date Type Detail Facility Start: 09-04-2019 End: 05-15-2024 Tobacco smoking status NHIS Never smoker [facility] Start: 09-04-2019 End: 03-27-2021 Alcohol intake Current non-drinker of alcohol (finding) [place], [place] Start: 10-16-2017 Alcohol Comment very reare Emma Davis [place], [place] Start: 1981 Sex Assigned At Not on file [place], [place] Start: 05-12-2019 Alcohol intake No [facility] Start: 11-08-2014 End: 09-06-2019 Tobacco use and exposure Never used [employer]- [place], [place] Exposure to SARS-CoV -2 (event) Not sure [employer] Start: 03-27-2021 Alcohol Comment very rare Emma parikh Work Phone: Tobacco smoking status [facility] [place] Functional Status Date Assessment Result Facility 05-15-2024 Functional Status N/A [facility] [place] Clinical Notes 09-13-2021 to 05-15-2024 InstructionsAttachments Note Date & Type Note Facility 05-15-2024 Note General Surgery Offi ce/Clinic Note Chief Complaint consultation for rectal pain and bleeding HPI Staff 43 year old male presents on consultation from Chen Kaplan for rectal pain. Reports experiencing several month history of intermittent stated complaints. Reports over the past 2-3 months, he has constant rectal pain and right red blood per rectum with bowel movements. Verbalized blood in toiler water and on toilet tissue. Reports intermittent lower abdominal pain. Verbalized he has been experiencing constipation over the past 2-3 months. Verbalized PRN use of Colace. Denies nausea or vomiting. Last colonoscopy completed greater that 10 years ago for complaint of diarrhea reported normal per patient. History of Present Illness 43 yo male with h/o htn, nephrolithiasis, referred for daily rectal pain and rectal bleeding; initially began 1 year ago, was intermittent; some constipation; now daily pain and worsening constipation, firm bms every several days, has to strain, has red blood with bm, on outside of stool and with wiping; no abd pain, no N/V or wt loss; has used some hemorrhoid creams with temporary results; no asa or NSAID use; no tobacco use; no abd or anal operations; remote colonoscopy > 10 years ago, wnl; no tobacco use; no fmhx of GI malignancy or IBD. Review of Systems PHQ Score Initial Depression Screen Score: 0 SCORE ROS - Provider Constitutional: no fever, no sweats, no weight loss. Eyes: no glasses, no blurred vision, no visual loss. ENMT: no dentures, no hoarseness, no swallowing difficulties, no hearing loss, no ear infection(s), no nose bleeds. Cardiovascular: normal blood pressure, no chest pain, regular heartbeat, no heart murmur. Respiratory: no shortness of breath, no cough, no asthma, no wheezing. Gastrointestinal: no nausea, no vomiting, no diarrhea, no constipation, no blood in stool, no change in bowel habits, no abdominal pain, no hepatitis. Genitourinary: no kidney stones, no urine infection, no dysuria. Musculoskeletal: no pain, no weakness. Skin: no changing moles, no rash, no skin lumps. Neurologic: no seizures, no epilepsy, no headache. Psychiatric: no emotional or psychiatric problem. Heme/Lymph: no bleeding problems, no anemia, no blood clots, no transfusions. Allergy/Immunologic: no swollen lymph nodes/glands, no IV drug abuse. Other: Additional ROS info: Except as noted in the above Review of Systems and in the History of Present Illness, all other systems have been reviewed and are negative or noncontributory. Physical Exam Vitals & Measurements HR: 76(Peripheral) RR: 16 BP: 118/76 HT: 63 in HT: 160 cm WT: 91 kg WT: 200.2 lb BMI: 35.55 HEENT: normal conjunctiva, sclera clear, no scleral icterus, EOM intact, PERRLA, oral mucosa moist without lesions. Neck: trachea midline, no mass, symmetric, no thyromegaly or nodules, no adenopathy Respiratory: lungs CTA, respirations non labored. Cardiovascular: regular rate and rhythm, no murmur, no pedal edema or varicosities. Gastrointestinal: soft, non distended, no tenderness, no masses, no palpable hernias, diastasis recti no, no hepatosplenomegaly; normal bs rectal: acute left lateral anal fissure, no bleeding; posterior scarring; no external hemorrhoids Lymphatic: no cervical adenopathy, no supraclavicular adenopathy. Musculoskeletal: normal gait, digits and nails without infection, nodes, cyanosis, clubbing. Skin: no rashes, no lesions, no ulcers, no subcutaneous nodules, induration. Psychiatric/Neuro: oriented to time, place, person, judgement normal, affect appropriate for age, insight intact, no focal deficits. Tests: , review of old records completed , Discussed surgical options, risks, and possible complications with patient. Assessment/Plan 1. Change in bowel habits (R19.4: Change in bowel habit) plan colonoscopy under anesthesia for further evaluation, informed consent obtained. recommend high fiber diet and daily fiber supplement, total of 25-30 gms/day; increased water intake; MiraLAX daily. 2. Rectal bleeding (K62.5: Hemorrhage of anus and rectum) see # 1 3. Rectal or anal pain (K62.89: Other specified diseases of anus and rectum) see # 1 4. Anal fissure (K60.2: Anal fissure, unspecified) sitz baths before and after bms; over the counter topical numbing agents as needed. Follow-up No qualifying data available Problem List/Past Medical History Ongoing Anal fissure Anxiety Arthritis Bilateral kidney stones Bipolar depression BMI 35.0-35.9,adult Change in bowel habits Chronic gouty arthritis Cluster headaches Degeneration of lumbar intervertebral disc Essential hypertension Flank pain Hydronephrosis with ureteral calculus Hypertension Insomnia Kidney stone Microscopic hematuria Nocturia Obesity due to excess calories Posttraumatic stress disorder Rectal bleeding Rectal or anal pain Seropositive rheumatoid arthritis Historical No qualifying data Procedure/Surgica (more content not included)... [facility] Comment on above: Result Comment: Elec tronically Signed By: DARA FARIAS, David Loera\.parag\Date and Time Signed: 05/15/24 14:59 EDT 11-11-2023 Note TC to Home number fo r [employer] referral for: Elevated Rheumatoid Factor Referral in digital media strategist Spoke with son and provider Rheum clinic call back number. Son states he will give his father the message to return call. [facility] 07-06-2022 Note CONSULTATION CONSULTATION DATE: 07/06/2022 CHIEF [...] his work. 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 He has low back pain [...] in office. CC: Chen Kaplan CNP [facility] 09-13-2021 Hospital Discharge instructions Francis Pinto DO - 09/13/2021 Return to the Emergency Department immediately if you develop worsening pain, numbness, weakness , or you have any other concerns. Please follow up with your orthopaeidc doctor in 2-3 days. Ice, elevate Use crutches The following attachments cannot be sent through Care Everywhere.Ankle Sprain (Egyptian)documented in this encounter [employer] Work Phone: Evaluation + Plan note No data available for this section [facility] [place] Evaluation note Diagnosis Strain of right wrist, initial encounter- Primary documented in this encounter [employer] Phone: [email or web address] note* Diagnosis Seropositive rheumatoid arthritis (HCC) Rheumatoid arthritis documented in this encounter [employer] Phone: [email or web address] note* Diagnosis Pain Generalized pain documented in this encounter [employer] Phone: [email or web address] note* Diagnosis Microscopic hematuria Flank pain Abdominal pain, unspecified site Hydronephrosis with ureteral calculus Calculus of ureter documented in this encounter [employer] Phone: [email or web address] note* Diagnosis Sprain of right foot, initial encounter- Primary Sprain of left ankle, unspecified ligament, initial encounter documented in this encounter [employer] Phone: Hospital Discharge instructions* Attachments The following attachments cannot be sent through Care Everywhere. * Strain or Sprain (Egyptian) documented in this encounterPops Phone: Hospital Discharge instructions No data available for this section [facility] [employer] Progress note No data available for this section [facility] [employer] Summary Purpose Family History No Family History Records FoundNo Family History Records FoundNo Family History Records FoundNo Family History Records FoundNo Family History Records FoundNo Family History Records FoundNo Family History Records Found No data available for this section No Family History Records Found Advance Directives No Advanced Directives Records FoundDocuments on File Type Date Recorded Patient Manager Specialty Expl anation Advance Directives and Living Will Power of Political Reporter Documents on File Type Date Recorded Patient Manager Specialty Expl anation ACP-Advance Directive ACP-Power of Political Reporter Assessments Diagnosis Injury of right knee, initial [...] sent through Care Everywhere. * Finger: Bruises (Egyptian) documented in this encounter* Attachments The following attachments cannot be sent through Care Everywhere. * Knee Sprain (Egyptian) documented in this encounter Additional Source Comments (unrecognized sect ion and content) No Status Records FoundNo Status Records FoundNo Status Records FoundNo Status Records FoundNo Status Records FoundNo Status Records FoundNo Status Records FoundNo Status Records Found INFORMATION SOURCE (unrecogn ized section and content) DATE CREATED AUTHOR 03/31/2018 [facility] DATE CREATED AUTHOR AUTHOR'S ORGANIZ ATION 04/26/2019 [facility] DATE CREATED AUTHOR AUTHOR'S ORGANIZ ATION 09/23/2021 [facility] DATE CREATED AUTHOR AUTHOR'S ORGANIZ ATION 02/16/2023 [facility] DATE CREATED AUTHOR AUTHOR'S ORGANIZ ATION 08/14/2023 [facility] DATE CREATED AUTHOR AUTHOR'S ORGANIZ ATION 11/13/2023 [facility] DATE CREATED AUTHOR AUTHOR'S ORGANIZ ATION 01/25/2024 [facility] EPIC DATE CREATED AUTHOR AUTHOR'S ORGANIZ ATION 05/16/2024 [facility] Reason for Visit (unrecogniz ed [...] 1 dose 1941 (Given - Provid er: Jaen Auguste RN) Scheduled Medication Order 09/11/2021 09/12/2021 09/13/2021 HYDROcodone-acetaminophen (NORCO) 5-325 MG per tablet 1 tablet (COMPLETED) 1 tablet, Oral, ONCE, On 09/13/21 at 1015, For 1 dose, Maximum dose of acetaminophen is 4000 mg from all sources in 24 hours. 1020 (Given - Provid er: Rocio Neville RN) Care Teams (unrecognized sec tion and content) Rivet Spinner Relationship Specialty Start Date End Date TimClari [address] [place] [address] PCP - General Nurse Practitioner 04/21/19 FOR [...] BE BASED ON THE PRIMARY CLINICAL RECORDS. [employer] [facility]. provides no warranty or guarantee of the accuracy or completeness of information in this document.
[2024-06-07 12:30] LABS: Internal Control Within Normal Limits; SARS-CoV-2 Ag POSITIVE (NEGATIVE)
== END 2024-06-07 11:32 | disposition home or self-care (01) ==
LOC: LAB 11:31
PROVIDERS: PCP Nurse Practitioner Family; Visit Provider Nurse Practitioner Family
DX: J06.9 Acute upper respiratory infection, unspecified (principal)
CPT/HCPCS: 87811

== ENCOUNTER 2024-06-18 13:05 | Outpatient (OUT) | payer BC, SELFPAY | END 2024-06-18 13:06 | disposition home or self-care (01) | LOC: PST 13:06 | PROVIDERS: PCP Nurse Practitioner Family; Visit Provider Surgery | DX: Z01.818 Encounter for other preprocedural examination (principal); K62.89 Other specified diseases of anus and rectum; K62.5 Hemorrhage of anus and rectum ==

== ENCOUNTER 2024-06-27 06:22 | Day surgery (SDC) | payer BC, SELFPAY ==
--- NOTE | 2024-06-27 | OP_ITS ---
OPERATION DATE: 06/27/2024 PREOPERATIVE DIAGNOSIS: Rectal bleeding, rectal pain, change in bowel habits. POSTOPERATIVE DIAGNOSIS: Normal colonoscopy to cecum. PROCEDURE: Colonoscopy to cecum. SURGEON: David Murphy M.D. ANESTHESIA: Monitored anesthesia care. ESTIMATED BLOOD LOSS: Zero. INDICATIONS AND CONSENT: Patient is a 44-year-old male with history of intermittent rectal pain and bleeding, as well as change in bowel habits. Indications, risks, benefits, alternatives of proceeding with colonoscopy were explained extensively to the patient, including the risks of bleeding, colon perforation or anesthetic complications. All of his questions were answered. Informed consent was obtained. PROCEDURE: Patient brought to the operating room, placed in the left lateral decubitus position. Monitored anesthesia care was provided. Rectal exam was performed which revealed some decreased tone, no masses or blood, no fissures. The scope was inserted into the anal canal. Under direct visualization was advanced. It was advanced to the cecum where cecal markings were clearly identified. There was noted to be a good prep. Upon withdrawal of the scope, mucosal surfaces were carefully examined. There were no mass lesions or polyps. No inflammatory changes or ulcerations. No significant diverticulosis. The scope was retroflexed in the anal canal. There was no significant hemorrhoidal disease. Scope was then withdrawn. Patient tolerated procedure well, was sent to recovery room in good condition. Follow up screening colonoscopy should be in 10 years. CC: BUCK Boone
--- OUTSIDE RECORDS SUMMARY | 2024-06-27 06:25 | XMS_ITS | CCD ---
Author Organization [facility] Care Team Providers Care Service Tech Name Role Phone Nilo Mendez Unavailable Unavailable FRUTH, JEAN Primary Care Unavailable KENYATTA KEN Attending Unavailable CHIRRI, ARTEMIO Consulting Unavailable Tim, Clari A Primary Care Provider [phone] Tim, Clari A Primary Care Provider [phone] Tim, Clari A Primary Care Provider TIM, [...] DR PEARSON Consulting Unavailable HOY ., DR EPARSON Admitting Unavailable WEST, DR MICHAEL Carr Consulting [...] Unavailable TIM, CLARI A Primary Care Physician [phone] RODRIGUEZ KAPLAN S Referring Unavailable NILL, David R Attending Unavailable EUSEBIO, RODRIGUEZ S Referring Unavailable NILLDavid R Attending Unavailable Allergies Allergy Classification Reported Allergen(s) Allergy Type Date of Onset Reaction(s) Facility Opioid Agonists (13 sources) traMADol Drug Allergy 6 [facility] Penicillins (antibiotic) (13 sources) Penicillins Drug Allergy 1 [facility] (7 sources) Penicillins; Translations: [penicillins] Propensity to adverse reactions to drug 1 Rash, Eruption of skin (disorder) [place], [place] (6 sources) traMADol; Translations: [tramadol] Drug Allergy 6 Rash, Eruption of skin (disorder) [place] (1 source) Penicillin Drug Allergy [address] [facility] (2 sources) traMADol; Translations: [Ultram] Drug Allergy [facility] Medications Current Medications Medication Drug [...] BID, # 20 cap(s), Refills(s) 0, Pharmacy: [facility] 1622, 160, cm, 05/04/21 15:08:00 [...] you for choosing us for your care. [facility] Ambulatory Visit Summary Ambulatory Visit Summary [...] you for choosing us for your care. [facility] Physician Referralon 08-23- 023 Physician Referral [phone] [id number] TIFF [facility] MRI LSPINE WO CONon 05-21-20 22 [...] MICHAEL RAE Date: 2022-05-21 18:[address] [facility] XR FOREIGN BODY EYEon 2021 XR FOREIGN BODY EYE EXAMINATION: XR FOREIGN BODY EYE HISTORY: Foreign body in eye COMPARISON: No relevant comparison available. FINDINGS: ORBITS: Negative for a metallic foreign body. OTHER: Negative. IMPRESSION: 1. No metallic foreign body within the orbits. Electronically authenticated by: RIKI RIOS Date: 2022-05-21 10:36 Normal [facility] XR LSPINE MIN 4 VIEWSon 02-01 [...] RIKI RIOS Date: 2022-02-22 11:[address] [facility] CBC with Diffon 09-23-2021 Abs. Basophil 0.02 k/uL Normal 0.0-0.2 [facility] Comment on above: Performed By: #### C ELOY LOPEZ, IPF ####[address] [place] [id number] Lab Director: Michael Meyer MD Abs.Imm.Granulocyte 0.02 k/uL Normal 0.00-0.30 [facility] Comment on above: Performed By: #### C JESSICA CP, IPF ####[address] , [facility]83 Lab Director: Michael Meyer MD Abs.Neutrophil (Seg) 1.28 k/uL Low 1.50-8.10 [facility] Comment on above: Performed By: #### C ELOY LOPEZ, IPF ####[address] , [place] [address] Lab Director: Michael Meyer MD Basophils/100 WBC (Bld) 1 % Normal 0-2 [facility] Comment on above: Performed By: #### C JESSICA CP, IPF ####[address] , [facility]83 Lab Director: Michael Meyer MD Eosinophils (Bld) [#/Vol] 0.00 10*3/uL Normal 0.00-0.44 [facility] Comment on above: Performed By: #### C JESSICA CP, IPF ####[address] [place] [address] Lab Director: Michael Meyer MD Eosinophils/100 WBC (Bld) 0 % Low 1-4 [facility] Comment on above: Performed By: #### C DP, CP, IPF ####[address] [place] [address] Lab Director: Michael Meyer MD Immature granulocytes/100 WBC (Bld) 1 % High 0 [facility] Comment on above: Performed By: #### C DP, CP, IPF ####[address] , [place] [address])[phone] Director: Michael Meyer MD Lymphocytes (Bld) [#/Vol] 0.73 10*3/uL Low 1.10-3.70 [facility] Comment on above: Performed By: #### C JESSICA, CP, IPF ####[address] , [facility]83[facility])[phone] Director: Michael Meyer MD Lymphocytes/100 WBC (Bld) 33 % Normal 24-43 [facility] Comment on above: Performed By: #### C JESSICA CP, IPF ####[address] [place] [address] Lab Director: Michael Meyer MD Monocytes (Bld) [#/Vol] 0.15 10*3/uL Normal 0.10-1.20 [facility] Comment on above: Performed By: #### C DP, CP, IPF ####[address] [place] [address] Lab Director: Michael Meyer MD Monocytes/100 WBC (Bld) 7 % Normal 3-12 [facility] Comment on above: Performed By: #### C DP, CP, IPF ####[address] [place] [address] Lab Director: Michael Meyer MD Morphology Fernando (Bld) [Interp] Platelet scan shows Normal Platelets Normal [facility] Comment on above: Performed By: #### C JESSICA CP, IPF ####[address] , [place] 326[address]83 Lab Director: Michael Meyer MD Neutrophil (Seg) 58 % Normal 36-65 [facility] Comment on above: Performed By: #### C DP, CP, IPF ####[address] [place] [address] Lab Director: Michael Meyer MD Erythrocyte distribution width (RBC) [Ratio] 11.2 % Low 11.8-14.4 [facility] Comment on above: Performed By: #### C JESSICA CP, IPF ####[address] , [place] 1249683 Lab Director: Michael Meyer MD Hematocrit (Bld) [Volume fraction] 46.3 % Normal 40.7-50.3 [facility] Comment on above: Performed By: #### C ELOY LOPEZ, IPF ####[address] [place] [address] Lab Director: Michael Meyer MD Hemoglobin (Bld) [Mass/Vol] 15.6 g/dL Normal 13.0-17.0 [facility] Comment on above: Performed By: #### C DP CP, IPF ####[address] [place] [address] Lab Director: Michael Meyer MD MCH (RBC) [Entitic mass] 28.5 pg Normal 25.2-33.5 [facility] Comment on above: Performed By: #### C DP, CP, IPF ####[address] , [place] 9038183 Lab Director: Michael Meyer MD MCHC (RBC) [Mass/Vol] 33.7 g/dL Normal 28.4-34.8 [facility] Comment on above: Performed By: #### C DP, CP, IPF ####[address] , [place] [phone] Director: Michael Meyer MD MCV (RBC) [Entitic vol] 84.6 fL Normal 82.6-102.9 [facility] Comment on above: Performed By: #### C DP, CP, IPF ####[address] , [place] [phone] Director: Michael Meyer MD NRBC Automated 0.0 per 100 WBC Normal 0.0 [facility] Comment on above: Performed By: #### C DP, CP, IPF ####[address] , [place] [phone] Director: Michael Meyer MD Platelet Count See Reflexed IPF Result Normal 138-453 [facility] Comment on above: Performed By: #### C DP, CP, IPF ####[address] , [place] [phone] Director: Michael Meyer MD RBC (Bld) [#/Vol] 5.47 10*6/uL Normal 4.21-5.77 [facility] Comment on above: Performed By: #### C DP, CP, IPF ####[address] [place] [address] Lab Director: Michael Meyer MD WBC (Bld) [#/Vol] 2.2 10*3/uL Low 3.5-11.3 [facility] Comment on above: Performed By: #### C DP, CP, IPF ####[address] [place] [address] Lab Director: Michael Meyer MD Auto Diff Performed NOT REPORTED Normal [facility] Comment on above: Performed By: #### C DP, CP, IPF ####[facility] [place] , [place] 3156883 Lab Director: Michael Meyer MD MPV NOT REPORTED Normal 8.1-13.5 [facility] Comment on above: Performed By: #### C DP, CP, IPF ####[facility] [place] , [place] 7833883 Lab Director: Michael Meyer MD Platelet Comment NOT REPORTED Normal [facility] Comment on above: Performed By: #### C DP, CP, IPF ####[address] [place] [address] Lab Director: Michael Meyer MD RBC morphology finding Nom (Bld) NOT REPORTED Normal [facility] Comment on above: Performed By: #### C DP, CP, IPF ####[address] [place] [address] Lab Director: Michael Meyer MD WBC Morphology NOT REPORTED Normal [facility] Comment on above: Performed By: #### C DP, CP, IPF ####[address] , [place] 7422[address] Lab Director: Michael Meyer MD Comp Metabolic Profon 2020 (cont.) Normal [facility] Comment on above: Result Comment: Aver age GFR for 40-49 years old: 99 mL/min/1.73sq m Chronic Kidney Disease: <60 mL/min/1.73sq m Kidney failure: <15 mL/min/1.73sq m eGFR calculated using average adult body mass. Additional eGFR calculator available at: http://www.[employer]/multiple_crcl_2012.htm Performed By: #### C DP, CP, IPF ####[address] , [place] 3613083 Lab Director: Michael Meyer MD Albumin [Mass/Vol] 4.1 g/dL Normal 3.5-5.2 [facility] Comment on above: Performed By: #### C DP, CP, IPF ####[address] [place] [address] Lab Director: Michael Meyer MD Albumin/Glob Ratio 1.1 Normal 1.0-2.5 [facility] Comment on above: Performed By: #### C DP, CP, IPF ####[address] [place] [address] Lab Director: Michael Meyer MD Alkaline Phos 87 U/L Normal 40-129 [facility] Comment on above: Performed By: #### C DP, CP, IPF ####[address] , [place] 0[address] Lab Director: Michael Meyer MD ALT [Catalytic activity/Vol] 65 U/L High 5-41 [facility] Comment on above: Performed By: #### C DP, CP, IPF ####[address] [place] [address] Lab Director: Michael Meyer MD Anion gap [Moles/Vol] 13 mmol/L Normal 9-17 [facility] Comment on above: Performed By: #### C DP, CP, IPF ####[address] [place] [address] Lab Director: Michael Meyer MD AST [Catalytic activity/Vol] 68 U/L High <40 [facility] Comment on above: Performed By: #### C DP, CP, IPF ####[address] [place] [address] Lab Director: Michael Meyer MD Bilirubin [Mass/Vol] 0.52 mg/dL Normal 0.3-1.2 [facility] Comment on above: Performed By: #### C DP, CP, IPF ####[address] , [place] 2818483 Lab Director: Michael Meyer MD BUN/CRE Ratio 8 Low 9-20 [facility] Comment on above: Performed By: #### C DP, CP, IPF ####[address] , [place] 7764883 lab Director: Michael Meyer MD Calcium [Mass/Vol] 8.8 mg/dL Normal 8.6-10.4 [facility] Comment on above: Performed By: #### C DP, CP, IPF ####[address] , [place] 4800683 lab Director: Michael Meyer MD Chloride [Moles/Vol] 100 mmol/L Normal 98-107 [facility] Comment on above: Performed By: #### C DP, CP, IPF ####[address] , [place] 4342783 lab Director: Michael Meyer MD CO2 [Moles/Vol] 23 mmol/L Normal 20-31 [facility] Comment on above: Performed By: #### C DP CP, IPF ####[address] , [place] 6696383 lab Director: Michael Meyer MD Creatinine [Mass/Vol] 1.55 mg/dL High 0.70-1.20 [facility] Comment on above: Performed By: #### C DP, CP, IPF ####[address] , [place] 3949383 lab Director: Michael Meyer MD GFR, Amer >60 Normal >60 [facility] Comment on above: Performed By: #### C DP, CP, IPF ####[address] , [place] 5000[address] lab Director: Michael Meyer MD GFR,non Amer 50 mL/min Low >60 [facility] Comment on above: Performed By: #### C DP, CP, IPF ####[address] , [place] 944[address]83 Lab Director: Michael Meyer MD Glucose [Mass/Vol] 94 mg/dL Normal 70-99 [facility] Comment on above: Performed By: #### C DP, CP, IPF ####[address] , [place] 8197683 Lab Director: Michael Meyer MD Potassium [Moles/Vol] 3.9 mmol/L Normal 3.7-5.3 [facility] Comment on above: Performed By: #### C DP, CP, IPF ####[address] , [place] 196[address]83 lab Director: Michael Meyer MD Protein [Mass/Vol] 7.9 g/dL Normal 6.4-8.3 [facility] Comment on above: Performed By: #### C DP, CP, IPF ####[address] , [place] 6958[address] Lab Director: Michael Meyer MD Sodium [Moles/Vol] 136 mmol/L Normal 135-144 [facility] Comment on above: Performed By: #### C DP, CP, IPF ####[address] , [place] 6557[address] Lab Director: Michael Meyer MD Staging: Normal [facility] Comment on above: Result Comment: Stag e 1: Some kidney damage normal GFR Stage 2: Mild kidney damage GFR 60-89 Stage 3: Moderate kidney damage GFR 30-59 Stage 4: Severe kidney damage GFR 15-29 Stage 5: Severe kidney damage GFR <15 ESRD - chronic treatment by dialysis or transplant Performed By: #### C DP, CP, IPF ####[address] , [place] 8196483 Lab Director: Michael Meyer MD Urea nitrogen [Mass/Vol] 13 mg/dL Normal 6-20 [facility] Comment on above: Performed By: #### C DP, CP, IPF ####[facility] , [place] 0431283 [facility] Director: Michael Meyer MD Lactic Acidon 09-23-2021 Lactate [Moles/Vol] 0.9 mmol/L Normal 0.5-2.2 [facility] Comment on above: Performed By: #### L ACTIC ####[facility] [phone] [facility] Director: Michael Meyer MD Lactic Acid,Whole Bl NOT REPORTED Normal 0.7-2.1 [facility] Comment on above: Performed By: #### L ACTIC ####[facility] , [place] 2096483 [facility] Director: Michael Meyer MD PLT, Immature Fract.on 09-23 Platelet, Fluoresc. 42 k/uL Low 138-453 [facility] Comment on above: Performed By: #### C DP, CP, IPF #### [address] [place], [place] [address]83 Manager Recovery: Michael Meyer MD PLT, Immature Fract. 1.2 % Normal 1.1-10.3 [facility] Comment on above: Performed By: #### C DP, CP, IPF #### [facility] [address] [place], [place] 7418383 Manager Recovery: Michael Meyer MD XR CHEST (SINGLE VIEW [...] by: Will Calderón 09/22/21 Final result Normal [facility] Resp Viral Panelon 1 Adenovirus Not detected Normal [facility] Comment on above: Performed By: #### R ASSOCIATE WEB DEVELOPER ####[facility] [address] [place], [place] [phone] Director: Juan R [address] [place] [address] Lab Director: MD Guille Oviedodet.parapertussis Not detected Normal [facility] Comment on above: Performed By: #### R ASSOCIATE WEB DEVELOPER ####[facility] [address]wa[address] [place], [place] [phone] Director: Juan R [facility] [place] [address] Lab Director: Michael Meyer MD Bordetella pertussis Not detected Normal [facility] Comment on above: Performed By: #### R ASSOCIATE WEB DEVELOPER ####[facility] Rrpoxfqpelxl1260 [place], [place] [phone])[phone] Director: Juan R [address] [place] [address] Lab Director: Michael Meyer MD Chlamyd.pneumoniae Not detected Normal [facility] Comment on above: Performed By: #### R ASSOCIATE WEB DEVELOPER ####[facility] [address] [place], [place] [phone] Director: Juan R [address] [place] [address] Lab Director: Michael Meyer MD Coronavirus 229E Not detected [facility] Comment on above: Performed By: #### R ASSOCIATE WEB DEVELOPER ####[facility] Ntx[address]xvwkcz4601 [place] [address] Lab Director: Juan R [address] [place] [address] Lab Director: Michael Meyer MD Coronavirus HKU1 Not detected [facility] Comment on above: Performed By: #### R ASSOCIATE WEB DEVELOPER ####[facility] [address] [place] [address] Lab Director: Juan R [facility] [place] [address] Lab Director: Michael Meyer MD Coronavirus NL63 Not detected [facility] Comment on above: Performed By: #### R ASSOCIATE WEB DEVELOPER ####[facility] Zk[address]zqevep1181 [place], [place] [phone] Director: Juan R [address] [place] [address] Lab Director: Michael Meyer MD Coronavirus OC43 Not detected [facility] Comment on above: Performed By: #### R ASSOCIATE WEB DEVELOPER ####[facility] [address] [place] [address] Lab Director: Juan R [address] [place] [address] Lab Director: Michael Meyer MD Human Metapneumo Not detected [facility] Comment on above: Performed By: #### R ASSOCIATE WEB DEVELOPER ####[facility] [address] [place] [address] Lab Director: Juan R [facility] [place] [address] Lab Director: Michael Meyer MD Influenza A Not detected [facility] Comment on above: Performed By: #### R ASSOCIATE WEB DEVELOPER ####[facility] [address] [place] [address] Lab Director: Juan R [address] [place] [address] Lab Director: Michael Meyer MD Influenza B Not detected Normal [facility] Comment on above: Performed By: #### R ASSOCIATE WEB DEVELOPER ####[facility] [address]ql[address] [place], [place] [phone] Director: Juan R [facility] [place] [address] Lab Director: Michael Meyer MD Mycoplas.pneumoniae Not detected Normal [facility] Comment on above: Result Comment: Perf ormed by multiplexed nucleic acid assay. Performed By: #### R ASSOCIATE WEB DEVELOPER ####[facility] [address] [place], [place] [phone])[phone] Director: Juan R [address] [place] [address] Lab Director: Michael Meyer MD Parainfluenza 1 Not detected [facility] Comment on above: Performed By: #### R ASSOCIATE WEB DEVELOPER ####[facility] [address] [place], [place] [phone] Director: Juan R [address] [place] [address] Lab Director: Michael Meyer MD Parainfluenza 2 Not detected [facility] Comment on above: Performed By: #### R ASSOCIATE WEB DEVELOPER ####[facility] [address] [place], [place] [phone])[phone] Director: Juan R [address] [place] [address] Lab Director: Michael Meyer MD Parainfluenza 3 Not detected [facility] Comment on above: Performed By: #### R ASSOCIATE WEB DEVELOPER ####[facility] [address] [place], [place] [phone])[phone] Director: Juan R [address] [place] [address] Lab Director: Michael Meyer MD Parainfluenza 4 Not detected Normal [facility] Comment on above: Performed By: #### R ASSOCIATE WEB DEVELOPER ####[facility] [address] [place], [place] [id number])[phone] Director: Juan R [address] [place] [address] Lab Director: Michael Meyer MD Resp Syncytial Virus Not detected Normal [facility] Comment on above: Performed By: #### R ASSOCIATE WEB DEVELOPER ####[facility] F[address] [place], [place] [phone] Director: Juan R [address] [place] [address] Lab Director: Michael Meyer MD Rhino/Enterovirus Not detected Normal [facility] Comment on above: Performed By: #### R ASSOCIATE WEB DEVELOPER ####[facility] [address] [place], [place] [phone] Director: Juan R [address] [place] [address] Lab Director: Michael Meyer MD SARS-CoV-2 (COVID-19) RNA LYNDON+probe Ql (Unsp spec) Detected Abnormal [facility] Comment on above: Result Comment: Resu lts reported to the appropriate Health Department Performed By: #### R ASSOCIATE WEB DEVELOPER ####[facility] [address] [place], [place] [phone] Director: Juan R [address] [place] [address] Lab Director: Michael Meyer MD Resp Viral Panelon Source: .NASOPHARYNGEAL SWAB Normal [facility] Comment on above: Performed By: #### R ASSOCIATE WEB DEVELOPER ####[facility] [address] [place] [address] Lab Director: Juan R [facility] , [place] 111[address] Lab Director: Michael Meyer MD Influenza A H1 NOT REPORTED Normal [facility] Comment on above: Performed By: #### R ASSOCIATE WEB DEVELOPER ####[facility] [address] [place] [address] Lab Director: Juan R [facility] [place], [place] 1348083 Lab Director: Michael Meyer MD Influenza A H1-2009 NOT REPORTED Normal [facility] Comment on above: Performed By: #### R ASSOCIATE WEB DEVELOPER ####[address] [address] Lab Director: Juan R [address] [place] [address] Lab Director: Michael Meyer MD Influenza A H3 NOT REPORTED Normal [facility] Comment on above: Performed By: #### R ASSOCIATE WEB DEVELOPER ####[place] [address] [place] [address] Lab Director: Juan R [address] [place] [address] Lab Director: Michael Meyer MD No Panel Informationon 09-13 No acute findings. [facility] RIS CONSOLIDATED EXAMINATION: THREE XRAY VIEWS OF THE RIGHT ANKLE; THREE XRAY VIEWS OF THE LEFT FOOT 09/13/2021 9:16 am COMPARISON: None. HISTORY: ORDERING SYSTEM PROVIDED HISTORY: Pain TECHNOLOGIST PROVIDED HISTORY: Pain FINDINGS: No acute fracture demonstrated. 2 threaded screws noted medial malleolus from repair prior injury. Alignment anatomic. Small plantar and dorsal calcaneal spurs present. Almi-bm-uxtdjvzl degenerative change primarily midfoot. Overall alignment anatomic. Soft tissues unremarkable. [facility] CONSOLID[facility] Art DO Jeronimo - 09/13/2021 EXAMINATION: THREE XRAY VIEWS OF THE RIGHT ANKLE; THREE XRAY VIEWS OF THE LEFT FOOT 09/13/2021 9:16 am COMPARISON: None. HISTORY: ORDERING SYSTEM PROVIDED HISTORY: Pain TECHNOLOGIST PROVIDED HISTORY: Pain FINDINGS: No acute fracture demonstrated. 2 threaded screws noted medial malleolus from repair prior injury. Alignment anatomic. Small plantar and dorsal calcaneal spurs present. Iczu-kg-rtafilcr degenerative change primarily midfoot. Overall alignment anatomic. Soft tissues unremarkable. IMPRESSION: No acute findings. [employer] Phone: [employer] Phone: No acute findings. [facility] CON[facility] EXAMINATION: THREE XRAY VIEWS OF THE RIGHT FOOT; THREE XRAY VIEWS OF THE LEFT ANKLE 09/13/2021 9:14 am COMPARISON: None. HISTORY: ORDERING SYSTEM PROVIDED HISTORY: pain TECHNOLOGIST PROVIDED HISTORY: pain FINDINGS: No acute fracture demonstrated. Alignment is anatomic. 2 threaded screws noted within the medial malleolus. Edzg-sx-gkwifxba degenerative change primarily midfoot. Small plantar and dorsal calcaneal spurs present. Soft tissues unremarkable. [facility] CONSOL[facility] ArtVicDO cordell - 09/13/2021 EXAMINATION: THREE XRAY VIEWS OF THE RIGHT FOOT; THREE XRAY VIEWS OF THE LEFT ANKLE 09/13/2021 9:14 am COMPARISON: None. HISTORY: ORDERING SYSTEM PROVIDED HISTORY: pain TECHNOLOGIST PROVIDED HISTORY: pain FINDINGS: No acute fracture demonstrated. Alignment is anatomic. 2 threaded screws noted within the medial malleolus. Gkbr-yg-kklggoeu degenerative change primarily midfoot. Small plantar and dorsal calcaneal spurs present. Soft tissues unremarkable. IMPRESSION: No acute findings. [employer] Phone: No Panel InformationOrdered By: Jeronimo Art on 09-13-2021 [employer] Phone: XR ANKLE LEFT (MIN 3 VIEWS)o n 09-13-2021 XR ANKLE LEFT (MIN 3 VIEWS) EXAMINATION: THREE XRAY VIEWS OF THE RIGHT FOOT; THREE XRAY VIEWS OF THE LEFT ANKLE 09/13/2021 9:14 am COMPARISON: None. HISTORY: ORDERING SYSTEM PROVIDED HISTORY: pain TECHNOLOGIST PROVIDED HISTORY: pain FINDINGS: No acute fracture demonstrated. Alignment is anatomic. 2 threaded screws noted within the medial malleolus. Godt-ur-ctaajpgx degenerative change primarily midfoot. Small plantar and dorsal calcaneal spurs present. Soft tissues unremarkable. IMPRESSION: No acute findings. Interpreted by: Jeronimo Art DO Signed by: Jeronimo Art DO 09/13/21 Final result Normal [facility] Radiology Study observation (narrative) [employer] Phone: XR ANKLE RIGHT (MIN 3 VIEWS) [...] Small plantar and dorsal calcaneal spurs present. Ajba-bd-quxualmh degenerative change primarily midfoot. Overall alignment anatomic. Soft tissues unremarkable. IMPRESSION: No acute findings. Interpreted by: Jeronimo Art DO Signed by: Jeronimo Art DO 09/13/21 Final result Normal [facility] Radiology Study observation (narrative) [employer] Phone: XR FOOT LEFT (MIN 3 VIEWS)on [...] Small plantar and dorsal calcaneal spurs present. Evau-yq-[id number] degenerative change primarily midfoot. Overall alignment anatomic. Soft tissues unremarkable. IMPRESSION: No acute findings. Interpreted by: Jeronimo Art DO Signed by: Jeronimo Art DO 09/13/21 Final result Normal [facility] Radiology Study observation (narrative) [employer] Phone: XR FOOT RIGHT (MIN 3 VIEWS)o n 09-13-2021 XR FOOT RIGHT (MIN 3 VIEWS) EXAMINATION: THREE XRAY VIEWS OF THE RIGHT FOOT; THREE XRAY VIEWS OF THE LEFT ANKLE 09/13/2021 9:14 am COMPARISON: None. HISTORY: ORDERING SYSTEM PROVIDED HISTORY: pain TECHNOLOGIST PROVIDED HISTORY: pain FINDINGS: No acute fracture demonstrated. Alignment is anatomic. 2 threaded screws noted within the medial malleolus. Gmdg-px-[id number] degenerative change primarily midfoot. Small plantar and dorsal calcaneal spurs present. Soft tissues unremarkable. IMPRESSION: No acute findings. Interpreted by: Jeronimo Art DO Signed by: Jeronimo Art DO 09/13/21 Final result Normal [facility] Radiology Study observation (narrative) [employer] Phone: XR ABDOMEN (KUB) (SINGLE AP VIEW)on [...] Kerri Scott MD 05/08/21 Final result Normal [facility] XR ABDOMEN (KUB) (SINGLE AP VIEW)Ordered By: Sahil Interiano on 05-08-2021 Nonobstructive bowel gas pattern. No radiodensities diagnostic of nephroliths. [employer] Phone: EXAMINATION: ONE SUPINE XRAY VIEW(S) OF THE ABDOMEN 05/08/2021 10:35 am COMPARISON: 01 May 2021 HISTORY: ORDERING SYSTEM PROVIDED HISTORY: Microscopic hematuria FINDINGS: The bowel gas pattern is non obstructive. No organomegaly, free air or abnormal calcifications are noted. Mild levo scoliotic curvature is present. [employer] Phone: Luther, Mhpn Incoming Radiant Results From [employer] - 05/08/2021 2:06 PM EDT EXAMINATION: ONE SUPINE XRAY VIEW(S) OF THE ABDOMEN 05/08/2021 10:35 am COMPARISON: 01 May 2021 HISTORY: ORDERING SYSTEM PROVIDED HISTORY: Microscopic hematuria FINDINGS: The bowel gas pattern is non obstructive. No organomegaly, free air or abnormal calcifications are noted. Mild levo scoliotic curvature is present. IMPRESSION: Nonobstructive bowel gas pattern. No radiodensities diagnostic of nephroliths. [employer] Phone: [employer] Phone: No Panel InformationOrdered By: Fatuma Sanchez on 05-01-2021 1. No acute osseous abnormality of the right ankle. Posttraumatic and postsurgical changes as above. Mild tibiotalar joint osteoarthritis. 2. Acute osseous abnormality of the right foot. Chronic appearing well-defined erosion or subchondral cyst at the base of the 3rd metatarsal without associated joint space loss. This is a nonspecific finding. [employer] Phone: EXAMINATION: THREE XRAY VIEWS OF THE [...] base of the 3rd metatarsal is nonspecific. [employer] Phone: Luther, pn Incoming Radiant Results From [employer] - 05/01/2021 5:46 PM EDT EXAMINATION: THREE [...] space loss. This is a nonspecific finding. [employer] Phone: [employer] Phone: Unremarkable left wrist/left hand series. There are no plain radiographic findings to suggest an active synovial process of bone as rheumatoid arthritis [employer] Phone: EXAMINATION: 2 XRAY VIEWS OF THE LEFT WRIST; TWO XRAY VIEWS OF THE LEFT HAND 05/01/2021 11:10 am COMPARISON: None. HISTORY: ORDERING SYSTEM PROVIDED HISTORY: Seropositive rheumatoid arthritis (HCC) FINDINGS: The bones and joints are unremarkable without definite fracture, dislocation, significant degenerative/erosive change, radiopaque foreign body, abnormal soft tissue calcification or bony destructive lesion [employer] Phone: Luther, Mhpn Incoming Radiant Results From [employer] - 05/01/2021 11:26 AM EDT EXAMINATION: 2 [...] synovial process of bone as rheumatoid arthritis [employer] Phone: [employer] Phone: XR ABDOMEN (KUB) (SINGLE AP VIEW)on [...] Linda Albarran MD 05/01/21 Final result Normal [facility] XR ABDOMEN (KUB) (SINGLE AP VIEW)Ordered By: Sahil Interiano on 05-01-2021 No significant radiographic abnormality in the abdomen. [employer] Phone: EXAMINATION: ONE SUPINE XRAY VIEW(S) OF THE ABDOMEN 05/01/2021 10:51 am COMPARISON: None. HISTORY: ORDERING SYSTEM PROVIDED HISTORY: Pain FINDINGS: Nonobstructive bowel gas pattern. No abnormal calcifications overlying the gallbladder urinary tract. No mass effect. Osseous structures grossly intact. [employer] Phone: Luther, pn Incoming Radiant Results From [employer] - 05/01/2021 11:21 AM EDT EXAMINATION: ONE SUPINE XRAY VIEW(S) OF THE ABDOMEN 05/01/2021 10:51 am COMPARISON: None. HISTORY: ORDERING SYSTEM PROVIDED HISTORY: Pain FINDINGS: Nonobstructive bowel gas pattern. No abnormal calcifications overlying the gallbladder urinary tract. No mass effect. Osseous structures grossly intact. IMPRESSION: No significant radiographic abnormality in the abdomen. [employer] Phone: [employer] Phone: XR ANKLE LEFT (MIN 3 VIEWS)o [...] Clarissa Gomez MD 05/01/21 Final result Normal [facility] XR ANKLE LEFT (MIN 3 VIEWS)O rdered By: Fatuma Sanchez on 05-01-2021 Moderate calcaneal spurring [employer] Phone: EXAMINATION: THREE XRAY VIEWS OF THE LEFT ANKLE 05/01/2021 11:12 am COMPARISON: None. HISTORY: ORDERING SYSTEM PROVIDED HISTORY: Seropositive rheumatoid arthritis (HCC) FINDINGS: There is moderate spurring of the superior aspect of the os calcis. The bones and joints are otherwise unremarkable without definite effusion, acute fracture, dislocation radiopaque foreign body or bony destructive lesion [employer] Phone: Luther, pn Incoming Radiant Results From [employer] - 05/01/2021 11:21 AM EDT EXAMINATION: THREE [...] bony destructive lesion IMPRESSION: Moderate calcaneal spurring [employer] Phone: [employer] Phone: XR ANKLE RIGHT (MIN 3 VIEWS) [...] Michael Caceres MD 05/01/21 Final result Normal [facility] XR FOOT LEFT (2 VIEWS)on XR [...] Clarissa Gomez MD 05/01/21 Final result Normal [facility] XR FOOT LEFT (2 VIEWS)Ordere d By: Fatuma Sanchez on 05-01-2021 Mild degenerative changes There are no plain radiographic findings to suggest an active synovial process of bone as rheumatoid arthritis [email or web address] Work Phone: EXAMINATION: TWO XRA Y VIEWS [...] radiopaque foreign body or bony destructive lesion [employer] Phone: Luther, [facility] Incoming Radiant Results From [employer] - 05/01/2021 11:29 AM EDT EXAMINATION: TWO [...] synovial process of bone as rheumatoid arthritis [employer] Phone: [employer] Phone: XR FOOT RIGHT (2 VIEWS)on XR [...] Michael Caceres MD 05/01/21 Final result Normal [facility] XR HAND LEFT (2 VIEWS)on XR [...] Clarissa Gomez MD 05/01/21 Final result Normal [facility] XR HAND RIGHT (2 VIEWS)on XR [...] Clarissa Gomez MD 05/01/21 Final result Normal [facility] XR HAND RIGHT (2 VIEWS)Order ed By: Fatuma Sanchez on 05-01-2021 Unremarkable two-vie w right hand series. There are no definite plain radiographic findings to suggest an active synovial process of bone as rheumatoid arthritis [employer] Phone: EXAMINATION: TWO XRA Y VIEWS OF THE RIGHT HAND 05/01/2021 11:12 am COMPARISON: None. HISTORY: ORDERING SYSTEM PROVIDED HISTORY: Seropositive rheumatoid arthritis (HCC) FINDINGS: The bones and joints are unremarkable without definite fracture, dislocation, significant degenerative/erosive change, radiopaque foreign body, abnormal soft tissue calcification or bony destructive lesion [employer] Phone: Luther, pn Incoming Radiant Results From [email or web address] - 05/01/2021 11:24 AM EDT EXAMINATION: TWO [...] synovial process of bone as rheumatoid arthritis [employer] Phone: [employer] Phone: XR WRIST LEFT (2 VIEWS)on XR [...] Clarissa Gomez MD 05/01/21 Final result Normal [facility] XR WRIST RIGHT (2 VIEWS)on 0 [...] Clarissa Gomez MD 05/01/21 Final result Normal [facility] XR WRIST RIGHT (2 VIEWS)Orde red By: Fatuma Sanchez on 05-01-2021 Unremarkable two-vie w right wrist series [employer] Phone: EXAMINATION: 2 XRAY VIEWS OF THE RIGHT WRIST; 05/01/2021 11:11 am COMPARISON: None. HISTORY: ORDERING SYSTEM PROVIDED HISTORY: Seropositive rheumatoid arthritis (HCC) FINDINGS: The bones and joints are unremarkable without definite fracture, dislocation, significant degenerative/erosive change, radiopaque foreign body or bony destructive lesion [employer] Phone: Luther, pn Incoming Radiant Results From [facility] - 05/01/2021 11:23 AM EDT EXAMINATION: 2 XRAY VIEWS OF THE RIGHT WRIST; 05/01/2021 11:11 am COMPARISON: None. HISTORY: ORDERING SYSTEM PROVIDED HISTORY: Seropositive rheumatoid arthritis (HCC) FINDINGS: The bones and joints are unremarkable without definite fracture, dislocation, significant degenerative/erosive change, radiopaque foreign body or bony destructive lesion IMPRESSION: Unremarkable two-view right wrist series [employer] Phone: [employer] Phone: XR WRIST RIGHT (MIN 3 VIEWS) [...] Ebenezer Pepe MD 03/01/21 Final result Normal [facility] XR WRIST RIGHT (MIN 3 VIEWS) Ordered By: Riki Tucker on 03-01-2021 Unremarkable right wrist. [employer] Phone: EXAMINATION: 3 XRAY VIEWS OF THE [...] degenerative findings. No appreciable soft tissue abnormality. [employer] Phone: Luther, pn Incoming Radiant Results From [facility] - 03/01/2021 7:52 PM EDT EXAMINATION: 3 [...] soft tissue abnormality. IMPRESSION: Unremarkable right wrist. [employer] Phone: [employer] Phone: XR KNEE RIGHT (1-2 VIEWS)on 11-07-2020 [...] 11/07/20 CC Recipients: Yaritza Hensley APRN - MATERIALS INTERN - (authorizing provider) Final result Normal [facility] XR KNEE RIGHT (3 VIEWS)on Joint effusion witho ut acute osseous abnormality. [facility] [place] EXAMINATION: THREE XRAY VIEWS OF THE RIGHT [...] effusion. The periarticular soft tissues are unremarkable. [facility] [employer] [place], [facility] Incoming Radiant Results From [email or web address] - 09/04/2019 6:08 PM EST EXAMINATION: THREE [...] IMPRESSION: Joint effusion without acute osseous abnormality. [facility] [place] XR HAND LEFT (MIN 3 VIEWS)on 05-12-2019 No acute osseous abnormality. [facility] [place] EXAMINATION: THREE XRAY VIEWS OF THE LEFT HAND 05/12/2019 12:22 pm COMPARISON: November 12, 2018 HISTORY: ORDERING SYSTEM PROVIDED HISTORY: pain TECHNOLOGIST PROVIDED HISTORY: pain FINDINGS: There is no evidence of acute fracture. There is normal alignment. No acute joint abnormality. No focal osseous lesion. No focal soft tissue abnormality. [facility] [employer] Luther, Mhpn Incoming Radiant Results From [email or web address] - 05/12/2019 12:48 PM EDT EXAMINATION: THREE XRAY VIEWS OF THE LEFT HAND 05/12/2019 12:22 pm COMPARISON: November 12, 2018 HISTORY: ORDERING SYSTEM PROVIDED HISTORY: pain TECHNOLOGIST PROVIDED HISTORY: pain FINDINGS: There is no evidence of acute fracture. There is normal alignment. No acute joint abnormality. No focal osseous lesion. No focal soft tissue abnormality. IMPRESSION: No acute osseous abnormality. [facility], [place] MRI BRAIN WO CONTRASTon 04-03 MRI BRAIN [...] Tiffanie Hughes MD 04/24/19 Final result Normal [facility] MRI CERVICAL SPINE WO CONTRA STon 04-24-2019 [...] Tiffanie Hughes MD 04/24/19 Final result Normal [facility] Vital Signs Date Time Vital Sign Value Performing Clinician Robson henry 05-15-2024 14:12-0400 Blood Pressure Location [facility] 05-15-2024 14:12-0400 Diastolic blood pressure 76 mm[Hg] David NILL [facility] 05-15-2024 14:12-0400 Heart rate 76 /min David NILL [facility] 05-15-2024 14:12-0400 Respiratory rate 16 /min David GoCard[employer]L [facility] 05-15-2024 14:12-0400 Systolic blood pressure 118 mm[Hg] David NILL [facility] 09-13-2021 08:22-0500 Diastolic blood pressure 86 mm[Hg] Francis Yongrov DO Work Phone: [facility] [employer] 09-13-2021 08:22-0500 Systolic blood pressure 147 mm[Hg] Francis Bobrov DO Work Phone: [facility] 09-13-2021 08:20-0500 Body mass index (BMI) [Ratio] 37.2 kg/m2 Francis Bobrov DO Work Phone: [facility] [employer] 09-13-2021 08:20-0500 Body temperature 97.39 [degF] Francis Bobrov DO Work Phone: [facility] [employer] 09-13-2021 08:20-0500 Body weight 95.25 kg Francis Bobrov DO Work Phone: [facility] [employer] 09-13-2021 08:20-0500 Heart rate 85 /min Francis Bobrov DO Work Phone: [email or web address] 09-13-2021 08:20-0500 Respiratory rate 16 /min Francis Pinto DO Work Phone: [email or web address] 09-13-2021 08:20-0500 SaO2% (BldA) [Mass fraction] 99 % Francis Pinto DO Work Phone: [email or web address] 03-01-2021 18:28-0400 Diastolic blood pressure 96 mm[Hg] Clari Tim Work Phone: [email or web address] Work Phone: 03-01-2021 18:28-0400 Systolic blood pressure 151 mm[Hg] Clari Tim Work Phone: [email or web address] Work Phone: 03-01-2021 18:26-0400 Body temperature 98.71 [degF] Clari Tim Work Phone: [email or web address] Work Phone: 03-01-2021 18:26-0400 Heart rate 70 /min Clari Tim Work Phone: [email or web address] Work Phone: 03-01-2021 18:26-0400 Respiratory rate 18 /min Mc Kinney Locksmithann Work Phone: [email or web address] Work Phone: 03-01-2021 18:26-0400 SaO2% (BldA) [Mass fraction] 98 % Clari Tim Work Phone: [email or web address] Work Phone: 09-06-2019 20:00-0500 Body Temperature 97.9 [degF] Oscar [facility] [place] 09-06-2019 20:00-0500 BP Diastolic 100 mm[Hg] Oscar Plain [place] , [place] 09-06-2019 20:00-0500 BP Systolic 154 mm[Hg] Oscar [facility] [place] 09-06-2019 20:00-0500 Pulse (Heart Rate) 89 /min Oscar Zuniga [facility], [place] 09-06-2019 20:00-0500 Pulse Oximetry 97 % [facility] , [place] 09-06-2019 20:00-0500 Respiratory Rate 19 /min [facility] [place] 09-04-2019 17:38-0500 BMI (Body Mass Index) 36.49 kg/m2 David Perez [facility], [place] 09-04-2019 17:38-0500 Body Temperature 98.2 [degF] David Perez [facility], [place] 09-04-2019 17:38-0500 Body weight 93.44 kg David Perez [facility], [place] 09-04-2019 17:38-0500 BP Diastolic 94 mm[Hg] David Perez [facility], [place] 09-04-2019 17:38-0500 BP Systolic 142 mm[Hg] [facility] [place] 09-04-2019 17:38-0500 Pulse (Heart Rate) 87 /min David Carter [facility], [place] 09-04-2019 17:38-0500 Pulse Oximetry 99 % David Perez [facility], [place] 09-04-2019 17:38-0500 Respiratory Rate 14 /min [facility] [place] 05-12-2019 12:15-0400 Body Temperature 98.01 [degF] [facility], [place] 05-12-2019 12:14-0400 BP Diastolic 85 mm[Hg] [facility] , [place] 05-12-2019 12:14-0400 BP Systolic 152 mm[Hg] [facility] , [place] 05-12-2019 12:14-0400 Pulse (Heart Rate) 87 /min [facility] [place] 05-12-2019 12:14-0400 Pulse Oximetry 96 % [facility] , [place] 05-12-2019 12:14-0400 Respiratory Rate 16 /[facility] [place] Encounters Encounter Date Encounter Type Care Provider Facility Start: 05-15-2024 End: 05-15-2024 ambulatory RODRIGUEZ KAPLAN Facility: [place] Start: 05-15-2024 End: 05-15-2024 Patient encounter procedure David Loera DARA [facility] [place] Start: 01-24-2024 End: 01-24-2024 ambulatory WILL SANTANA [...] Available Start: 08-22-2023 ambulatory RODRIGUEZ KAPLAN Facility: [place] Start: 08-12-2023 [facility] Start: 07-06-2022 End: 07-07-2022 ambulatory RODRIGUEZ KAPLAN Facility:[facility] Start: 05-21-2022 End: 05-22-2022 ambulatory RODRIGUEZ KAPLAN Facility:[facility] Start: 03-19-2022 End: 03-27-2022 ambulatory RODRIGUEZ KAPLAN Facility:[facility] Start: 02-22-2022 End: 02-23-[address] RIKI RIOS Facility:[facility] Start: 09-23-2021 End: 09-23-2021 [facility]: 09-21-2021 End: 09-21-2021 Emergency department patient visit CLARI A [facility] Start: 09-13-2021 End: 09-13-2021 Emergency department patient visit FRANCIS PINTO [facility] Start: 09-13-2021 End: 09-13-2021 Emergency department patient visit Francis Pinto DO Work Phone: [facility] ED Comment on above: Sprain of right foot , initial encounter (Primary Dx); Sprain of left ankle, unspecified ligament, initial encounter Start: 05-08-2021 End: 05-11-2021 ambulatory SAHIL INTERIANO [facility] Start: 05-08-2021 End: 05-10-2021 Subsequent hospital visit by physician Karoline Meek Dr Room 4 [facility] Radiology Comment on above: Microscopic hematuri a; Flank pain; Hydronephrosis with ureteral calculus Start: 05-01-2021 End: 05-04-2021 ambulatory SAHIL INTERIANO [facility] Start: 05-01-2021 End: 05-03-2021 Subsequent hospital visit by physician Karoline Meek Dr Room 2 [facility] Radiology Comment on above: Seropositive rheumat oid arthritis (HCC) Pain Start: 03-01-2021 End: 03-01-2021 Emergency department patient visit CLARI Ribera [facility] Start: 03-01-2021 End: 03-01-2021 Emergency department patient visit [facility] Work Phone: [facility] ED Comment on above: Strain of right wris t, initial encounter (Primary Dx) Start: 11-07-2020 End: 11-10-2020 ambulatory [facility] Start: 11-07-2020 End: 11-09-2020 [facility] Start: 09-06-2019 End: 09-06-2019 Emergency department patient visit Oscar Claytonimes Work Phone: [facility] ED Comment on above: Sprain of collateral ligament of right knee, initial encounter (Primary Dx) Start: 09-04-2019 End: 09-04-2019 Emergency department patient visit David Perez [facility] ED Comment on above: Injury of right knee , initial encounter (Primary Dx); Effusion of right knee joint Start: 05-12-2019 End: 05-12-2019 Emergency department patient visit [facility] ED Comment on above: Contusion of left coles nd including fingers, initial encounter (Primary Dx) Start: 04-20-2019 End: 04-20-2019 Emergency department patient visit JEAN Carter [facility] Start: 07-29-2017 End: 07-30-2017 Ambulatory Nilo Mendez Facility:[facility]uro[facility]urgic [facility] Procedures Date Procedure Procedure Detail [...] DTaP/Tdap/Td vaccine (2 - Td or Tdap) [facility] Start: 11-28-2027 DTaP/Tdap/Td vaccine (2 - Td) DTaP/Tdap/Td vaccine (2 - Td) [facility] [place], [place] Start: 11-25-2021 End: 11-25-2021 Patient encounter procedure 11/25/2021 Office Visit Rheumatology Fatuma Sanchez MD [address] [place] [address] [facility] Start: 06-24-2021 End: 06-24-2021 Patient encounter procedure 06/24/2021 Office Visit Rheumatology Fatuma Sanchez MD [address] [place] [address] [phone] [facility] Start: 06-03-2021 Influenza vaccination [facility] Start: 2021 Lipid panel Lipid screen [facility] Start: 06-03-2020 Influenza vaccination Flu vaccine (# 1) [place], [place] Start: 06-03-2019 Influenza vaccination Flu vaccine (# 1) [place], [place] Start: 2016 Diabetes screen Diabetes screen [facility] Start: 2000 DTaP/Tdap/Td vaccine (1 - Tdap) DTaP/Tdap/Td vaccine (1 - Tdap) [place], [place] Start: 1996 HIV screen HIV screen [place], [place] Start: 1996 HIV screening HIV screen [facility] Start: 1994 Varicella Vaccine (1 of 2 - 13+ 2-dose series) Varicella Vaccine (1 of 2 - 13+ 2-dose series) [place], [place] Start: 1993 COVID-19 Vaccine (1) COVID-19 Vaccin e (1) [facility] Start: 1992 DTaP/Tdap/Td vaccine (1 - Tdap) DTaP/Tdap/Td vaccine (1 - Tdap) [place] Start: 1982 Varicella Vaccine (1 of 2 - 2-dose childhood series) Varicella Vaccine (1 of 2 - 2-dose childhood series) [facility] Start: 1981 Hepatitis C screening Hepatitis C sc reen [facility] End: 05-12-2019 Splint application Splint application Procedures STAT One Time for 1 Occurrences starting 05/12/2019 until 05/12/2019 [place], [place] Comment on above: One Time for 1 Occur rences starting 05/12/2019 until 05/12/2019 Immunizations Immunization Date Immunization Notes Care Provider Deisy duong 07-14-2010 influenza virus vaccine, whole virus Clari [place], [place] NEGATED: Highlighted row has not occurred!05-11-2021 SARS-CoV-2 (COVID-19) Ad26 vaccine, recombinant David NILL [facility] Payers Date Payer Category Payer Unknown [id number] 2022 Medicaid [id number] 2020 Unknown [id number] 2019 Unknown [id number] 2019 Unknown [facility] [id number] xxxxxxxxx 2019-Present [address] [address] [place] [address] xxxxxxxxx [id number] [id number] 1981 Unknown [id number] 2.840.1.427638.3.579.2.175 1981 Unknown [id number] 2.0.1.377813.3.579.2.173 1981 Unknown [id number] 11.18.830.1.109316.3.579.2.173 1981 Unknown [id number] 2.840.1.212592.3.579.2.173 1981 Unknown [id number] 2.840.1.999404.3.579.2.173 1981 Unknown [id number] 2.840.1.502192.3.579.2.173 1981 Unknown [id number] 2.840.1.125692.3.579.2.173 1981 Unknown [id number] 2.16.840.1.576473.3.579.2.173 1981 Unknown [id number] 2.16.840.1.225885.3.579.2.173 1981 Unknown [id number] 2.16.840.1.996767.3.579.2.173 1981 Unknown [id number] 2.16.840.1.395624.3.579.2.173 1981 Unknown [id number] 2.16.840.1.942869.3.579.2.173 1981 Unknown [id number] 2.16.840.1.186214.3.579.2.173 1981 Unknown [id number] 2.16.840.1.198879.3.579.2.173 1981 Unknown [id number] 2.16840.1.715395.3.579.2.173 1981 Unknown [id number] 2.16.840.1.665327.3.579.2.173 1981 Unknown [id number] 2.16840.1.447933.3.579.2.173 1981 Unknown [id number] 2.16.840.1.114923.3.579.2.173 1981 Unknown [id number] 2.16840.1.179551.3.579.2.173 1981 Unknown [id number] 2.16.840.1.252126.3.579.2.173 1981 Unknown [id number] 2.16.840.1.295615.3.579.2.593 1981 Unknown [id number] 2.16.840.1.857259.3.579.2.593 1981 Unknown [id number] 2.16.840.1.824462.3.579.2.593 1981 Unknown [id number] 2.16.840.1.862339.3.579.2.593 1981 Unknown [id number] 2.16.840.1.973110.3.579.2.1259 1981 Unknown [id number] 2.16.840.1.491555.3.579.2.1259 1981 Unknown [id number] 2.16.840.1.138633.3.579.2.1259 1981 Unknown [id number] 2.16.840.1.264992.3.579.2.1259 1981 Unknown [id number] 2.16.840.1.844125.3.579.2.1259 1981 Unknown [id number] 2.16.840.1.071578.3.579.2.1259 1981 Unknown [id number] 2.16.840.1.239170.3.579.2.1259 1981 Unknown [id number] 2.16.840.1.184191.3.579.2.1259 1981 Unknown [id number] 2.16.840.1.984248.3.579.2.727 1981 Unknown [id number] 2.16.840.1.290335.3.579.2.727 1959 Unknown [id number] 1.2.840.229141.1.13.239.2.7.3.6 [id number] 1959 Unknown [id number] Social History Date Type Detail Facility Start: 09-04-2019 End: 05-15-2024 Tobacco smoking status NHIS Never smoker [facility] Start: 09-04-2019 End: 03-27-2021 Alcohol intake Current non-drinker of alcohol (finding) [place], [place] Start: 10-16-2017 Alcohol Comment very reare Emma Davis [place], [place] Start: 1980 Sex Assigned At Not on file [place], [place] Start: 05-12-2019 Alcohol intake No [facility] Start: 11-08-2014 End: 09-06-2019 Tobacco use and exposure Never used [email or web address]- [place], [place] Exposure to SARS-CoV -2 (event) Not sure [email or web address] Start: 03-27-2021 Alcohol Comment very rare Emma parikh Work Phone: Tobacco smoking status Never [facility] [place] Functional Status Date Assessment Result Facility 05-15-2024 Functional Status N/A [facility] [place] Clinical Notes 09-13-2021 to 05-15-2024 InstructionsAttachments Note [...] qualifying data Procedure/Surgica (more content not included)... [facility] Comment on above: Result Comment: Elec tronically Signed By: DARA FARIAS, David Loera\.parag\Date and Time Signed: 05/15/24 14:59 EDT 11-11-2023 Note TC to Home number fo r CASE ASSISTANT referral for: Elevated Rheumatoid Factor Referral in media monitor Spoke with son and provider Rheum clinic call back number. Son states he will give his father the message to return call. [facility] 07-06-2022 Note CONSULTATION CONSULTATION DATE: 07/06/2022 CHIEF [...] his work. 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 He has low back pain [...] in office. CC: Chen Kaplan CNP [facility] 09-13-2021 Hospital Discharge instructions Francis Pinto DO - 09/13/2021 Return to the Emergency Department immediately if you develop worsening pain, numbness, weakness , or you have any other concerns. Please follow up with your orthopaeidc doctor in 2-3 days. Ice, elevate Use crutches The following attachments cannot be sent through Care Everywhere.Ankle Sprain (Ghanaian)documented in this encounter [email or web address] Work Phone: Evaluation + Plan note No data available for this section [facility] [place] Evaluation note Diagnosis Strain of right wrist, initial encounter- Primary documented in this encounter [employer] Phone: [email or web address] note* Diagnosis Seropositive rheumatoid arthritis (HCC) Rheumatoid arthritis documented in this encounter [employer] Phone: [email or web address] note* Diagnosis Pain Generalized pain documented in this encounter [employer] Phone: [email or web address] note* Diagnosis Microscopic hematuria Flank pain Abdominal pain, unspecified site Hydronephrosis with ureteral calculus Calculus of ureter documented in this encounter [employer] Phone: [email or web address] note* Diagnosis Sprain of right foot, initial encounter- Primary Sprain of left ankle, unspecified ligament, initial encounter documented in this encounter [employer] Phone: Hospital Discharge instructions* Attachments The following attachments cannot be sent through Care Everywhere. * Strain or Sprain (Ghanaian) documented in [facility] [employer] Phone: Hospital Discharge instructions No data available for this section [email or web address] Progress note No data available for this section [email or web address] Summary Purpose Family History No Family History Records FoundNo Family History Records FoundNo Family History Records FoundNo Family History Records FoundNo Family History Records FoundNo Family History Records FoundNo Family History Records Found No data available for this section No Family History Records Found Advance Directives No Advanced Directives Records FoundDocuments on File Type Date Recorded Patient Service Attendant Expl anation Advance Directives and Living Will Power of Mail Processing Machine Operator Documents on File Type Date Recorded Patient Service Attendant Expl anation ACP-Advance Directive ACP-Power of Mail Processing Machine Operator Assessments Diagnosis Injury of right knee, initial [...] sent through Care Everywhere. * Finger: Bruises (Ghanaian) documented in this encounter* Attachments The following attachments cannot be sent through Care Everywhere. * Knee Sprain (Ghanaian) documented in this encounter Additional Source Comments (unrecognized sect ion and content) No Status Records FoundNo Status Records FoundNo Status Records FoundNo Status Records FoundNo Status Records FoundNo Status Records FoundNo Status Records FoundNo Status Records Found INFORMATION SOURCE (unrecogn ized section and content) DATE CREATED AUTHOR 03/31/2018 [facility] DATE CREATED AUTHOR AUTHOR'S ORGANIZ ATION 04/26/2019 [facility] DATE CREATED AUTHOR AUTHOR'S ORGANIZ ATION 09/23/2021 [facility] DATE CREATED AUTHOR AUTHOR'S ORGANIZ ATION 02/16/2023 [facility] DATE CREATED AUTHOR AUTHOR'S ORGANIZ ATION 08/14/2023 [facility] DATE CREATED AUTHOR AUTHOR'S ORGANIZ ATION 11/13/2023 [facility] DATE CREATED AUTHOR AUTHOR'S ORGANIZ ATION 01/25/2024 [facility] DATE CREATED AUTHOR AUTHOR'S ORGANIZ ATION 05/16/2024 [facility] Reason for Visit (unrecogniz [...] Care Teams (unrecognized sec tion and content) Service Tech Relationship Specialty Start Date End Date TimClari [address] [place] [address] PCP - General Nurse Practitioner 04/21/19 FOR [...] BE BASED ON THE PRIMARY CLINICAL RECORDS. [email or web address] [facility]. provides no warranty or guarantee of the accuracy or completeness of information in this document.
[2024-06-27 06:41] VITALS: BP 141/95; PULSE 78; TEMP 36.2; O2SAT 96; BMI 35.1
[2024-06-27] MEDS: LACTATED RINGER'S SOLUTION 1,000 ML 50 ML IV (06:55)
[2024-06-27 07:38] VITALS: BP 133/79; PULSE 66; TEMP 36.1; O2SAT 93
[2024-06-27 07:53] VITALS: BP 118/81; PULSE 63; O2SAT 94
[2024-06-27 08:08] VITALS: BP 150/95; PULSE 66; O2SAT 97
== END 2024-06-27 08:17 | disposition home or self-care (01) ==
PROVIDERS: PCP Nurse Practitioner Family; Visit Provider Surgery
PROC: (CPT 00811; principal; 2024-06-27 07:30)
DX: K62.5 Hemorrhage of anus and rectum (principal); K62.89 Other specified diseases of anus and rectum; R19.4 Change in bowel habit; I10 Essential (primary) hypertension; K21.9 Gastro-esophageal reflux disease without esophagitis
CPT/HCPCS: 00811; 45378; J2704

== ENCOUNTER 2024-07-23 23:56 | Emergency (ER) | payer BC, SELFPAY ==
--- OUTSIDE RECORDS SUMMARY | 2024-07-24 00:06 | XMS_ITS | CCD ---
Author Organization [facility] Care Team Providers Care Cabinet Installer Name Role Phone Nilo Mendez Unavailable Unavailable FRUTH, JEAN Primary Care Unavailable KENYATTA KEN Attending Unavailable CHIRRI, ARTEMIO Consulting Unavailable Mikala, Clari A Primary Care Provider Mikala, Clari A Primary Care Provider [phone] Mikala, Clari A Primary Care Provider [phone] MIKALA, CLARI A Primary Care Unavailable SHAHRZAD HENSLEY Referring Unavailable MIKALA, CLARI A Primary Care Unavailable MIKALA, CLARI A Primary Care Unavailable INTERIANO, QUINCY R Referring Unavailable MIKALA, CLARI A Primary Care Unavailable INTERIANO, QUINCY R Referring Unavailable INTERIANO, QUINCY R Referring Unavailable MIKALA, CLARI A Primary Care Unavailable SHAHRZAD HENSLEY Referring Unavailable MIKALA, CLARI A Primary Care Unavailable MIKALA, CLARI A Primary Care Unavailable MIKALA, CLARI A Primary Care Unavailable INTERIANO, QUINCY R Referring Unavailable MIKALA, CLARI A Primary Care Unavailable INTERIANO, QUINCY R Referring Unavailable FATUMA SANCHEZ Referring Unavailable MIKALA, CLARI A Primary Care Unavailable INTERIANO, QUINCY R Referring Unavailable MIKALA, CLARI A Primary Care Unavailable INTERIANO, QUINCY R Referring Unavailable MIKALA, CLARI A Primary Care Unavailable INTERIANO, QUINCY R Referring Unavailable MIKALA, CLARI A Primary Care Unavailable MIKALA, CLARI A Primary Care Unavailable INTERIANO, QUINCY R Referring Unavailable MIKALA, CLARI A Primary Care Unavailable INTERIANO, QUINCY R Referring Unavailable MIKALA, CLARI A Primary Care Unavailable INTERIANO, QUINCY R Referring Unavailable INTERIANO, QUINCY R Referring Unavailable MIKALA, CLARI A Primary Care Unavailable FRANCIS PINTO Attending Unavailable MIKALA, CLARI A Primary Care Unavailable KATE OLIVIER Attending Unavailable MIKALA, CLARI A Primary Care Unavailable EUSEBIO, ISABELLA Primary Care Unavailable BEN ., DR YULI Schmidt Attending Unavailable BEN ., DR YULI Schmidt Consulting Unavailable CONTRERAS ., DR YULI Schmidt Admitting Unavailable EUSEBIO, ISABELLA Primary Care Unavailable HOY ., DR PEARSON Referring Unavailable HOY ., DR PEARSON Attending Unavailable HOCordell ., DR PEARSON Consulting Unavailable YOANA ., DR PEARSON Admitting Unavailable KYRA, DR MICHAEL Carr Consulting Unavailable ZIEBER, DR APRYL Loera Consulting Unavailable ZIEBER, DR APRYL Loera Consulting Unavailable EUSEBIO, ISABELLA Attending Unavailable EUSEBIO, ISABELLA Admitting Unavailable MIKALA, CLARI Primary Care Unavailable EUSEBIO, ISABELLA Consulting Unavailable EUSEBIO, ISAEBLLA Admitting Unavailable EUSEBIO, ISABELLA Attending Unavailable EUSEBIO, ISABELLA Primary Care Unavailable Ruiz Lakshmi PARISH Attending Unavailable MIKALA, CLARI A Primary Care Physician [phone] ISABELLA KAPLAN Referring Unavailable David DIAMOND Attending Unavailable EUSEBIO, ISABELLA S Referring Unavailable David DIAMOND Attending Unavailable Ac Schmid MD Primary Care Provider Isabella Kaplan MD Unavailable NICOLETTE, RUTH ANN Elkins Attending Unavailable APLING, RUTH ANN Elkins Referring Unavailable APLING, RUTH ANN Elkins Referring Unavailable APLING, RUTH ANN Elkins Attending Unavailable APLING, RUTH ANN Elkins Attending Unavailable MAXWILL FRAUSTO Attending Unavailable APLING, RUTH ANN Elkins Attending Unavailable APLING, RUTH ANN Elkins Referring Unavailable APLING, RUTH ANN Elkins Attending Unavailable Allergies Allergy Classification Reported Allergen(s) Allergy Type Date of Onset Reaction(s) Facility Opioid Agonists (13 sources) traMADol Drug Allergy 6 Rash [facility] Penicillins (antibiotic) (13 sources) Penicillins Drug Allergy 1 Rash [facility] (7 sources) Penicillins; Translations: [penicillins] Propensity to adverse reactions to drug 1 Rash, Eruption of skin (disorder) [place], [place] (9 sources) traMADol; Translations: [tramadol] Drug Allergy 6 Rash, Eruption of skin (disorder) [place], [place] (1 source) Penicillin Drug Allergy 8 [facility] (2 sources) traMADol; Translations: [Ultram] Drug Allergy [facility] (3 sources) Naproxen Drug Allergy 3 Rash [facility] (3 sources) Penicillins Drug Allergy 3 Hives [facility] Healthcare Medications Current Medications Medication Drug Class(es) Dates Sig (Normalized) Sig (Original) acetaminophen 500 mg oral tablet (18 sources) Start: 01-08-2011 take 1 tablet by mouth every four hours as needed acetaminophen (TYLENOL) 500 MG tablet Take 500 mg by mouth every 4 hours as needed. 0 01/08/2011 Active allopurinol 100 mg oral tablet (17 sources) Xanthine Oxidase Inhibitor Start: 05-15-2024 End: 09-13-2021 take 1 tablet by mouth once daily allopurinol 100 mg Tab 100 mg = 1 tab(s), Oral, Daily, Refills(s) 0 Start Date: 05/15/24 Status: Ordered allopurinol (Zyl oprim) 100 MG tablet Take by mouth Active citalopram 20 mg oral tablet (5 sources) Serotonin Reuptake Inhibitor take 2 tablets by mouth once daily citalopram (CELEXA) 20 MG tablet Take 40 mg by mouth daily 0 Active take 1 tablet by mouth once [facility] y citalopram (CELEXA) 20 MG tablet Take 20 mg by mouth daily 0 Active colchicine 0.6 mg oral tablet (3 sources) Start: 12-19-2023 End: 12-18-2024 take 2 tablets by mouth once, then take 1 tablet by mouth every hour colchicine 0.6 MG tablet Indications: Acute gout involving toe of right foot, unspecified cause 1.2mg po once then 0.6 mg 1 hour later 3 tablet 12/19/2023 12/18/2024 Active hydroCHLOROthiazide 12.5 mg oral capsule (3 sources) Thiazide Diuretic Start: 05-15-2024 take 1 capsule by mouth once daily hydrochlorothiazide 12.5 mg Cap 12.5 mg = 1 cap(s), Oral, Daily, Refills(s) 0 Start Date: 05/15/24 Status: Ordered take 1 tablet by mouth once stevenson y hydroCHLOROthiazide (HYDRODiuril) 25 MG tablet Take 25 mg by mouth Daily Active ibuprofen 600 mg oral tablet (20 sources) Nonsteroidal Anti-inflammatory Drug Start: 11-27-2023 ibuprofen 600 MG tablet 600 mg 11/27/2023 Active Start: 03-01-2021 take 1 tablet by meme th every six hours as needed for pain ibuprofen (IBU) 600 MG tablet Take 1 tablet by mouth every 6 hours as needed for Pain 35 tablet 0 03/01/2021 Active Ibuprofen (IBU P O) IBU Active 1 ml ketorolac tromethamine 30 mg/ml [...] (with breakfast) 60 tablet 1 03/27/2021 Active methylPREDNISolone (2 sources) Corticosteroid Start: 07-18-2024 methylPREDNISolone (Medrol Dospak) 4 MG tablets Indications: Low back pain, unspecified back pain laterality, unspecified chronicity, unspecified whether sciatica present Follow schedule on package instructions 21 tablet 07/18/2024 Active predniSONE 20 mg oral tablet (2 [...] BID, # 20 cap(s), Refills(s) 0, Pharmacy: [id number], 160, cm, 05/04/21 15:08:00 [...] Anal fissure; Translations: [Anal fissure, unspecified] Onset: 4 Episodic Anxiety disorders (5 sources) Anxiety; Translations: [Posttraumatic stress disorder] Onset: 9 08-26-2023 Chronic Calculus of urinary tract (2 sources) Kidney stone 05-04-2021 Episodic Disorders of lipid metabolism (3 sources) Dyslipidemia; Translations: [Hyperlipidemia, unspecified] Onset: 3 02-14-2023 Chronic Esophageal disorders (3 sources) Gastroesophageal reflux disease; Translations: [Gastro-esophageal reflux disease without esophagitis] Onset: 3 02-14-2023 Chronic Essential hypertension (6 sources) Essential (primary) hypertension; Translations: [Essential hypertension] Onset: 2 08-26-2023 Chronic Gastrointestinal hemorrhage (20 sources) Rectal hemorrhage; Translations: [Hemorrhage of anus and rectum] Onset: 1 01-12-2011 Episodic Genitourinary symptoms and ill-defined conditions (3 sources) Microscopic hematuria; Translations: [Other microscopic hematuria] Episodic Gout and other crystal arthropathies (1 source) Chronic gouty arthritis Onset: 1 08-26-2023 Chronic Headache; including migraine (1 source) Cluster headache 05-04-2021 Chronic Mood disorders (4 sources) Bipolar disorder, most recent episode depression; Translations: [Depressive disorder] Onset: 3 05-04-2021 Chronic Osteoarthritis (1 source) Arthritis 05-04-2021 [...] function; Translations: [Change in bowel habit] Onset: 4 Episodic Other nervous system disorders (1 source) Other specified diseases of spinal cord; Translations: [OTH SPECIFIED DISEASES SPINAL CORD] Onset: 2 Chronic Other non-traumatic joint disorders (3 sources) Derangement of left shoulder joint; Translations: [Other specific joint derangements of left shoulder, not elsewhere classified] Onset: 3 02-14-2023 Chronic Other non-traumatic joint disorders (4 sources) Effusion of right knee joint; Translations: [Effusion of right knee joint] Onset: 9 09-04-2019 Other nutritional; endocrine; and metabolic disorders (1 source) Body mass index 30+ - obesity 05-15-2024 Chronic Other nutritional; endocrine; and metabolic disorders (1 source) Obesity caused by energy imbalance 05-15-2024 Chronic Other upper respiratory disease (3 sources) Allergic rhinitis due to pollen; Translations: [Allergic rhinitis due to pollen] Onset: 3 02-14-2023 Chronic Residual codes; unclassified (1 source) Pain; Translations: [Pain, unspecified] Episodic Rheumatoid arthritis and related disease (9 sources) Seropositive rheumatoid arthritis; Translations: [Rheumatoid arthritis with rheumatoid factor, unspecified] Chronic Spondylosis; intervertebral disc disorders; other back problems (7 sources) Other intervertebral disc degeneration, lumbar region; Translations: [Spondylosis without myelopathy or radiculopathy, lumbar region] Onset: 2 Chronic Spondylosis; intervertebral disc disorders; other back problems (10 sources) Low back pain; Translations: [Low back pain] Onset: 3 02-14-2023 Episodic Unclassified (4 sources) Injury of right knee; Translations: [Injury of right knee, initial encounter] Onset: 9 09-04-2019 Unclassified (3 sources) LOW BACK PAIN, UNSPECIFIED; Translations: [LOW BACK PAIN, UNSPECIFIED] Onset: 2 Past or Other Problems Problem Classification Problem Date Documented Da te Episodic/Chronic Open wounds of head; neck; and trunk (18 sources) Fracture of tooth ; Translations: [Fracture of tooth (traumatic), initial encounter for closed fracture] Onset: 09-06-2018 09-06-2018 Episodic Other connective tissue disease (3 sources) Peroneal tendinitis of right lower limb; Translations: [Peroneal tendinitis, right leg] Onset: 02-14-2023 02-14-2023 Episodic Other gastrointestinal disorders (18 sources) Diarrhea; Translations: [Diarrhea, unspecified] Onset: 01-12-2011 01-12-2011 Episodic Other injuries and conditions due to external causes (14 sources) Injury of right knee; Translations: [Unspecified injury of right lower leg, initial encounter] Onset: 09-04-2019 09-04-2019 Episodic Other non-traumatic joint disorders (14 sources) Effusion of right knee joint; Translations: [Effusion, right knee] Onset: 09-04-2019 09-04-2019 Episodic Other non-traumatic joint disorders (3 sources) Effusion of joint of left elbow; Translations: [Effusion, left elbow] Onset: 02-14-2023 02-14-2023 Episodic Other non-traumatic joint disorders (3 sources) Acute ankle pain; Translations: [Pain in right ankle and joints of right foot] Onset: 02-14-2023 02-14-2023 Episodic Residual codes; unclassified (4 sources) Insomnia; Translations: [Insomnia, unspecified] Onset: 02-14-2023 08-26-2023 Episodic Sprains and strains (7 sources) Sprain of knee; Translations: [Strain of muscle of upper limb] Onset: 02-14-2023 Episodic Superficial injury; contusion (19 sources) Contusion of face; Translations: [Contusion of hand] Onset: 09-06-2018 09-06-2018 Episodic Unclassified (1 source) LOW BACK PAIN, UNSPECIFIED; Translations: [LOW BACK PAIN, UNSPECIFIED] Onset: 07-06-2022 Results Test Name Value Interpretation Reference Range Facility Ambulatory Visit Summaryon 0 05-15-2024 Ambulatory Visit Summary Ambulatory Visit Summary THANIA JUNIOR Masters :1980 Visit Date:05/15/2024 Ambulatory Visit Instructions Your Diagnosis Change in bowel habits Rectal bleeding Rectal or anal pain Anal fissure Your Care Team Attending Physician - DARA FARIAS, David Loera Primary Care Physician - CLARI DUMONT CNP Referring Physician - ISABELLA KAPLAN CNP This Is Your Medications List [...] you for choosing us for your care. [facility] Ambulatory Visit Summary Ambulatory Visit Summary JUNIOR GONZALEZ :1980 Visit Date:05/15/2024 Ambulatory Visit Instructions Your Care Team Attending Physician - David DIAMOND MD Primary Care Physician - CLARI DUMONT CNP Referring Physician - ISABELLA KAPLAN CNP This Is Your Medications List [...] you for choosing us for your care. Normal [facility] Physician Referralon 023 Physician Referral [id number] 02 [id number] TIFF Normal [facility] MRI LSPINE WO CONon 05-21-20 22 [...] MICHAEL RAE Date: 2022-05-21 18:38 Normal [facility] XR FOREIGN BODY EYEon 2021 XR FOREIGN BODY EYE EXAMINATION: XR FOREIGN BODY EYE HISTORY: Foreign body in eye COMPARISON: No relevant comparison available. FINDINGS: ORBITS: Negative for a metallic foreign body. OTHER: Negative. IMPRESSION: 1. No metallic foreign body within the orbits. Electronically authenticated by: APRYL RIOS Date: 2022-05-21 10:36 Normal [facility] XR LSPINE MIN 4 VIEWSon 02-01 XR [...] progressed compared to 2016. Electronically authenticated by: APRYL RIOS Date: 2022-02-22 11:06 Normal [facility] CBC with Diffon 09-23-2021 Abs. Basophil 0.02 k/uL Normal 0.0-0.2 [facility] Comment on above: Performed By: #### C ELOY LOPEZ, IPF ####[address] , [place] [id number] lab Director: Michael Meyer MD Abs.Imm.Granulocyte 0.02 k/uL Normal 0.00-0.30 [facility] Comment on above: Performed By: #### C ELOY LOPEZ, IPF ####[address] [place] [address] lab Director: Michael Meyer MD Abs.Neutrophil (Seg) 1.28 k/uL Low 1.50-8.10 [facility] Comment on above: Performed By: #### C ELOY LOPEZ, IPF ####[address] , [place] [phone] Director: Michael Meyer MD Basophils/100 WBC (Bld) 1 % Normal 0-2 [facility] Comment on above: Performed By: #### C DP, CP, IPF ####[address] [place] [address] Lab Director: Michael Meyer MD Eosinophils (Bld) [#/Vol] 0.00 10*3/uL Normal 0.00-0.44 [facility] Comment on above: Performed By: #### C DP, CP, IPF ####[address] , [facility]83[facility])[phone] Director: Michael Meyer MD Eosinophils/100 WBC (Bld) 0 % Low 1-4 [facility] Comment on above: Performed By: #### C JESSICA CP, IPF ####[address] , [facility]83[facility])[phone] Director: Michael Meyer MD Immature granulocytes/100 WBC (Bld) 1 % High 0 [facility] Comment on above: Performed By: #### C JESSICA, CP, IPF ####[address] , [phone] Director: Michael Meyer MD Lymphocytes (Bld) [#/Vol] 0.73 10*3/uL Low 1.10-3.70 [facility] Comment on above: Performed By: #### C DP, CP, IPF ####[address] , [place] [phone] Director: Michael Meyer MD Lymphocytes/100 WBC (Bld) 33 % Normal 24-43 [facility] Comment on above: Performed By: #### C DP, CP, IPF ####[address] , [place] [phone] Lab Director: Michael Meyer MD Monocytes (Bld) [#/Vol] 0.15 10*3/uL Normal 0.10-1.20 [facility] Comment on above: Performed By: #### C DP CP, IPF ####[address] [place] [address] Lab Director: Michael Meyer MD Monocytes/100 WBC (Bld) 7 % Normal 3-12 [facility] Comment on above: Performed By: #### C DP, CP, IPF ####[address] , [place] [phone] Director: Michael Meyer MD Morphology Fernando (Bld) [Interp] Platelet scan shows Normal Platelets Normal [facility] Comment on above: Performed By: #### C JESSICA CP, IPF ####[address] , [place] [phone] Director: Michael Meyer MD Neutrophil (Seg) 58 % Normal 36-65 [facility] Comment on above: Performed By: #### C JESSICA CP, IPF ####[address] , [facility]83[facility])[phone] Director: Michael Meyer MD Erythrocyte distribution width (RBC) [Ratio] 11.2 % Low 11.8-14.4 [facility] Comment on above: Performed By: #### C JESSICA CP, IPF ####[address] , [facility]83[facility])[phone] Director: Michael Meyer MD Hematocrit (Bld) [Volume fraction] 46.3 % Normal 40.7-50.3 [facility] Comment on above: Performed By: #### C DP, CP, IPF ####[address] [place] [address] Lab Director: Michael Meyer MD Hemoglobin (Bld) [Mass/Vol] 15.6 g/dL Normal 13.0-17.0 [facility] Comment on above: Performed By: #### C DP, CP, IPF ####[address] , [facility]83 [facility] Director: Michael Meyer MD MCH (RBC) [Entitic mass] 28.5 pg Normal 25.2-33.5 [facility] Comment on above: Performed By: #### C DP, CP, IPF ####[address] , [facility]68([facility])[phone] Director: Michael Meyer MD MCHC (RBC) [Mass/Vol] 33.7 g/dL Normal 28.4-34.8 [facility] Comment on above: Performed By: #### C DP, CP, IPF ####[address] , [place] [address])[phone] Director: Michael Meyer MD MCV (RBC) [Entitic vol] 84.6 fL Normal 82.6-102.9 [facility] Comment on above: Performed By: #### C DP, CP, IPF ####[address] , [facility]83 [facility] Director: Michael Meyer MD NRBC Automated 0.0 per 100 WBC Normal 0.0 [facility] Comment on above: Performed By: #### C DP, CP, IPF ####[address] , [place] [address])[phone] Director: Michael Meyer MD Platelet Count See Reflexed IPF Result Normal 138-453 [facility] Comment on above: Performed By: #### C DP, CP, IPF ####[address] , [facility]83 lab Director: Michael Meyer MD RBC (Bld) [#/Vol] 5.47 10*6/uL Normal 4.21-5.77 [facility] Comment on above: Performed By: #### C DP, CP, IPF ####[address] [place] [address] Lab Director: Michael Meyer MD WBC (Bld) [#/Vol] 2.2 10*3/uL Low 3.5-11.3 [facility] Comment on above: Performed By: #### C DP, CP, IPF ####[address] [place] [address] Lab Director: Michael Meyer MD Auto Diff Performed NOT REPORTED Normal [facility] Comment on above: Performed By: #### C DP, CP, IPF ####[address] [place] [address] Lab Director: Michael Meyer MD MPV NOT REPORTED Normal 8.1-13.5 [facility] Comment on above: Performed By: #### C DP, CP, IPF ####[address] [place] [address] Lab Director: Michael Meyer MD Platelet Comment NOT REPORTED Normal [facility] Comment on above: Performed By: #### C DP, CP, IPF ####[address] [place] [address] Lab Director: Michael Meyer MD RBC morphology finding Nom (Bld) NOT REPORTED Normal [facility] Comment on above: Performed By: #### C DP, CP, IPF ####[address] [place] [address] Lab Director: Michael Meyer MD WBC Morphology NOT REPORTED Normal [facility] Comment on above: Performed By: #### C DP, CP, IPF ####[address] [place] [address] Lab Director: Michael Meyer MD Comp Metabolic Profon 2020 (cont.) Normal [facility] Comment on above: Result Comment: Aver age GFR for 40-49 years old: 99 mL/min/1.73sq m Chronic Kidney Disease: <60 mL/min/1.73sq m Kidney failure: <15 mL/min/1.73sq m eGFR calculated using average adult body mass. Additional eGFR calculator available at: [email or web address] Learning [email or web address]_crcl_2012.htm Performed By: #### C DP, CP, IPF ####[address] , [place] [phone] Director: Michael Meyer MD Albumin [Mass/Vol] 4.1 g/dL Normal 3.5-5.2 [facility] Comment on above: Performed By: #### C DP, CP, IPF ####[address] [place] [address] Lab Director: Michael Meyer MD Albumin/Glob Ratio 1.1 Normal 1.0-2.5 [facility] Comment on above: Performed By: #### C DP, CP, IPF ####[address] [place] [address] Lab Director: Michael Meyer MD Alkaline Phos 87 U/L Normal 40-129 [facility] Comment on above: Performed By: #### C DP, CP, IPF ####[address] [place] [address] Lab Director: Michael Meyer MD ALT [Catalytic activity/Vol] 65 U/L High 5-41 [facility] Comment on above: Performed By: #### C DP, CP, IPF ####[address] [place] [address] Lab Director: Michael Meyer MD Anion gap [Moles/Vol] 13 mmol/L Normal 9-17 [facility] Comment on above: Performed By: #### C DP, CP, IPF ####[address] [place] [address] Lab Director: Michael Meyer MD AST [Catalytic activity/Vol] 68 U/L High <40 [facility] Comment on above: Performed By: #### C DP, CP, IPF ####[facility] [place] , [place] [id number] Lab Director: Michael Meyer MD Bilirubin [Mass/Vol] 0.52 mg/dL Normal 0.3-1.2 [facility] Comment on above: Performed By: #### C DP, CP, IPF ####[address] , [place] [phone] Lab Director: Michael Meyer MD BUN/CRE Ratio 8 Low 9-20 [facility] Comment on above: Performed By: #### C DP, CP, IPF ####[address] , [place] [phone] Lab Director: Michael Meyer MD Calcium [Mass/Vol] 8.8 mg/dL Normal 8.6-10.4 [facility] Comment on above: Performed By: #### C DP, CP, IPF ####[address] , [place] [phone] Lab Director: Michael Meyer MD Chloride [Moles/Vol] 100 mmol/L Normal 98-107 [facility] Comment on above: Performed By: #### C DP, CP, IPF ####[address] , [place] [phone] Lab Director: Michael Meyer MD CO2 [Moles/Vol] 23 mmol/L Normal 20-31 [facility] Comment on above: Performed By: #### C DP, CP, IPF ####[address] , [place] [phone] Lab Director: Michael Meyer MD Creatinine [Mass/Vol] 1.55 mg/dL High 0.70-1.20 [facility] Comment on above: Performed By: #### C DP, CP, IPF ####[address] [place] [address] Lab Director: Michael Meyer MD GFR, Amer >60 Normal >60 [facility] Comment on above: Performed By: #### C DP, CP, IPF ####[address] [place] [address] Lab Director: Michael Meyer MD GFR,non Amer 50 mL/min Low >60 [facility] Comment on above: Performed By: #### C DP, CP, IPF ####[address] [place] [address] lab Director: Michael Meyer MD Glucose [Mass/Vol] 94 mg/dL Normal 70-99 [facility] Comment on above: Performed By: #### C DP, CP, IPF ####[address] [place] [address] Lab Director: Michael Meyer MD Potassium [Moles/Vol] 3.9 mmol/L Normal 3.7-5.3 [facility] Comment on above: Performed By: #### C DP, CP, IPF ####[address] [place] [address] Lab Director: Michael Meyer MD Protein [Mass/Vol] 7.9 g/dL Normal 6.4-8.3 [facility] Comment on above: Performed By: #### C DP, CP, IPF ####[address] [place] [address] Lab Director: Michael Meyer MD Sodium [Moles/Vol] 136 mmol/L Normal 135-144 [facility] Comment on above: Performed By: #### C DP, CP, IPF ####[address] , [place] [phone] [facility] Director: Michael Meyer MD Staging: Normal [facility] Comment on above: Result Comment: Stag e 1: Some kidney damage normal GFR Stage 2: Mild kidney damage GFR 60-89 Stage 3: Moderate kidney damage GFR 30-59 Stage 4: Severe kidney damage GFR 15-29 Stage 5: Severe kidney damage GFR <15 ESRD - chronic treatment by dialysis or transplant Performed By: #### C ELOY LOPEZ, IPF ####[address] , [facility]83 [facility] Director: Michael Meyer MD Urea nitrogen [Mass/Vol] 13 mg/dL Normal 6-20 [facility] Comment on above: Performed By: #### C ELOY LOPEZ, IPF ####[address] , [facility]83 [facility] Director: Michael Meyer MD Lactic Acidon 09-23-2021 Lactate [Moles/Vol] 0.9 mmol/L Normal 0.5-2.2 [facility] Comment on above: Performed By: #### L ACTIC ####[address] , [facility]83 [facility] Director: Michael Meyer MD Lactic Acid,Whole Bl NOT REPORTED Normal 0.7-2.1 [facility] Comment on above: Performed By: #### L ACTIC ####[address] , [facility]83 [facility] Director: Michael Meyer MD PLT, Immature Fract.on 09-23 Platelet, Fluoresc. 42 k/uL Low 138-453 [facility] Comment on above: Performed By: #### C ELOY LOPEZ, IPF #### [address] [place] [id number] Meat Scrubber: Michael Meyer MD PLT, Immature Fract. 1.2 % Normal 1.1-10.3 [facility] Comment on above: Performed By: #### C ELOY LOPEZ, IPF #### [address] [place], [place] [id number] Meat Scrubber: Michael Meyer MD XR CHEST (SINGLE VIEW [...] by: Will Calderón 09/22/21 Final result Normal [facility] Resp Viral Panelon Adenovirus Not detected Normal [facility] Comment on above: Performed By: #### R KITCHEN STEWARD/STEWARDESS ####[address] [place] [address] Lab Director: Juan R Tang[address] [place] [address] Lab Director: MD Guille Oviedodet.parapertussis Not detected Normal [place] Comment on above: Performed By: #### R KITCHEN STEWARD/STEWARDESS ####[address] [address] Lab Director: Juan R Tang[address] [id number] Lab Director: Michael Meyer MD Bordetella pertussis Not detected Normal [place] Comment on above: Performed By: #### R KITCHEN STEWARD/STEWARDESS ####[address] [place] [address] Lab Director: Juan R Tang[address] [id number] Lab Director: Michael Meyer MD Chlamyd.pneumoniae Not detected Normal [facility] Comment on above: Performed By: #### R KITCHEN STEWARD/STEWARDESS ####[facility] [address] [place] [address] Lab Director: Juan R Tang[address] [place] [address] Lab Director: Michael Meyer MD Coronavirus 229E Not detected Normal [facility] Comment on above: Performed By: #### R KITCHEN STEWARD/STEWARDESS ####[facility] [address] [place] [address] Lab Director: [facility] [place] [phone] Director: Michael Meyer MD Coronavirus HKU1 Not detected [facility] Comment on above: Performed By: #### R KITCHEN STEWARD/STEWARDESS ####[facility] [address] [place] [address] Lab Director: Juan R Tang[address] [place] [address] Lab Director: Michael Meyer MD Coronavirus NL63 Not detected [facility] Comment on above: Performed By: #### R KITCHEN STEWARD/STEWARDESS ####[address] [address] Lab Director: Juan R Tang[address] [place] [address] Lab Director: Michael Meyer MD Coronavirus OC43 Not detected [facility] Comment on above: Performed By: #### R KITCHEN STEWARD/STEWARDESS ####[facility] [address] [place] [address] Lab Director: Juan R Tang[address] [place] [address] Lab Director: Michael Meyer MD Human Metapneumo Not detected Normal [facility] Comment on above: Performed By: #### R KITCHEN STEWARD/STEWARDESS ####[facility] [address] [place] [address] Lab Director: Juan [facility] [place] [address] Lab Director: Michael Meyer MD Influenza A Not detected Normal [facility] Comment on above: Performed By: #### R KITCHEN STEWARD/STEWARDESS ####[facility] [address] [place] [address] Lab Director: Juan [facility] [place] [address] Lab Director: Mcihael Meyer MD Influenza B Not detected [facility] Comment on above: Performed By: #### R KITCHEN STEWARD/STEWARDESS ####[facility] [address] [place] [address] Lab Director: Juan R Tang[address] [place] [address] Lab Director: Michael Meyer MD Mycoplas.pneumoniae Not detected Normal [facility] Comment on above: Result Comment: Perf ormed by multiplexed nucleic acid assay. Performed By: #### R KITCHEN STEWARD/STEWARDESS ####[facility] [address] [place] [address] Lab Director: Juan R Tang[address] [place] [address] Lab Director: Michael Meyer MD Parainfluenza 1 Not detected Normal [facility] Comment on above: Performed By: #### R KITCHEN STEWARD/STEWARDESS ####[facility] [address] [place] [address] Lab Director: Juan R Tang[address] [place] [address] Lab Director: Michael Meyer MD Parainfluenza 2 Not detected Normal [facility] Comment on above: Performed By: #### R KITCHEN STEWARD/STEWARDESS ####[facility] [address] [place] [address] Lab Director: Juan R Tang[address] [place] [address] Lab Director: Michael Meyer MD Parainfluenza 3 Not detected Normal [facility] Comment on above: Performed By: #### R KITCHEN STEWARD/STEWARDESS ####[facility] [address] [place], [place] [phone] Director: Juan R [facility] , [place] [address] Lab Director: Michael Meyer MD Parainfluenza 4 Not detected Normal [facility] Comment on above: Performed By: #### R KITCHEN STEWARD/STEWARDESS ####[facility] [address] [place], [place] [phone])[phone] Director: Juan R Tang[address] [place] [address] Lab Director: Michael Meyer MD Resp Syncytial Virus Not detected Normal [place] Comment on above: Performed By: #### R KITCHEN STEWARD/STEWARDESS ####[facility] [address] [place], [place] [phone] Director: Juan R Tang[address] [place] [address] Lab Director: Michael Meyer MD Rhino/Enterovirus Not detected Normal [facility] Comment on above: Performed By: #### R KITCHEN STEWARD/STEWARDESS ####[facility] [address] [place], [place] [phone] Director: Juan R Tang[address] [place] [address] Lab Director: Michael Meyer MD SARS-CoV-2 (COVID-19) RNA LYNDON+probe Ql (Unsp spec) Detected Abnormal [facility] Comment on above: Result Comment: Resu lts reported to the appropriate Health Department Performed By: #### R KITCHEN STEWARD/STEWARDESS ####[facility] [address] [place], [place] [phone] Director: Juan R Tang[address] [place] [address] Lab Director: Michael Meyer MD Resp Viral Panelon 1 Source: .NASOPHARYNGEAL SWAB Normal [facility] Comment on above: Performed By: #### R KITCHEN STEWARD/STEWARDESS ####[facility] [address] [place], [place] [phone] Director: Juan R Tang[address] [place] [address] Lab Director: Michael Meyer MD Influenza A H1 NOT REPORTED Normal [facility] Comment on above: Performed By: #### R KITCHEN STEWARD/STEWARDESS ####[facility] [address] [place], [place] [phone] Director: Juan R Tang[address] [place] [address] Lab Director: Michael Meyer MD Influenza A H1-2009 NOT REPORTED Normal [facility] Comment on above: Performed By: #### R KITCHEN STEWARD/STEWARDESS ####[facility] [address] [place], [place] [phone])[phone] Director: Juan R Tang[address] [place] [address] Lab Director: Michael Meyer MD Influenza A H3 NOT REPORTED Normal [facility] Comment on above: Performed By: #### R KITCHEN STEWARD/STEWARDESS ####[facility] [address]rmblfoxyi37[address] [place] [address] Lab Director: Juan R Tang, [facility] Lab[address] [place] [address] , [place] [id number] Lab Director: Michael Meyer MD No Panel [...] Small plantar and dorsal calcaneal spurs present. Sceh-zs-cqurciqb degenerative change primarily midfoot. Overall alignment anatomic. [...] Small plantar and dorsal calcaneal spurs present. Vixe-ou-gdiqysgm degenerative change primarily midfoot. Overall alignment anatomic. Soft tissues unremarkable. IMPRESSION: No acute findings. [facility] [employer] Work Phone: [facility] [employer] Work Phone: No acute findings. [facility] EXAMINATION: THREE XRAY VIEWS OF THE RIGHT FOOT; THREE XRAY VIEWS OF THE LEFT ANKLE 09/13/2021 9:14 am COMPARISON: None. HISTORY: ORDERING SYSTEM PROVIDED HISTORY: pain TECHNOLOGIST PROVIDED HISTORY: pain FINDINGS: No acute fracture demonstrated. Alignment is anatomic. 2 threaded screws noted within the medial malleolus. Jcts-be-qxehgqxj degenerative change primarily midfoot. Small plantar and [...] threaded screws noted within the medial malleolus. Mciq-zi-zbusbxoj degenerative change primarily midfoot. Small plantar and dorsal calcaneal spurs present. Soft tissues unremarkable. IMPRESSION: No acute findings. [employer] Phone: No Panel InformationOrdered By: Jeronimo Art on 09-13-2021 [employer] Phone: XR ANKLE LEFT (MIN 3 VIEWS)o n 09-13-2021 XR ANKLE LEFT (MIN 3 VIEWS) EXAMINATION: THREE XRAY VIEWS OF THE RIGHT FOOT; THREE XRAY VIEWS OF THE LEFT ANKLE 09/13/2021 9:14 am COMPARISON: None. HISTORY: ORDERING SYSTEM PROVIDED HISTORY: pain TECHNOLOGIST PROVIDED HISTORY: pain FINDINGS: No acute fracture demonstrated. Alignment is anatomic. 2 threaded screws noted within the medial malleolus. Mdzl-ko-okklieio degenerative change primarily midfoot. Small plantar and dorsal calcaneal spurs present. Soft tissues unremarkable. IMPRESSION: No acute findings. Interpreted by: Jeronimo Art DO Signed by: Jeronimo Art DO 09/13/21 Final result Normal [facility] Radiology Study observation (narrative) [employer] Phone: XR ANKLE RIGHT (MIN 3 VIEWS) [...] Small plantar and dorsal calcaneal spurs present. Lrfw-kq-gkvzgigk degenerative change primarily midfoot. Overall alignment anatomic. Soft tissues unremarkable. IMPRESSION: No acute findings. Interpreted by: Jeronimo Atr DO Signed by: Jeronimo Art DO 09/13/21 Final result Normal [facility] Radiology Study observation (narrative) [employer] Phone: XR FOOT LEFT (MIN 3 VIEWS)on [...] Small plantar and dorsal calcaneal spurs present. Cigw-es-gsymozvm degenerative change primarily midfoot. Overall alignment anatomic. Soft tissues unremarkable. IMPRESSION: No acute findings. Interpreted by: Jeronimo Art DO Signed by: Jeronimo Art DO 09/13/21 Final result Normal [facility] Radiology Study observation (narrative) [employer] Phone: XR FOOT RIGHT (MIN 3 VIEWS)o n 09-13-2021 XR FOOT RIGHT (MIN 3 VIEWS) EXAMINATION: THREE XRAY VIEWS OF THE RIGHT FOOT; THREE XRAY VIEWS OF THE LEFT ANKLE 09/13/2021 9:14 am COMPARISON: None. HISTORY: ORDERING SYSTEM PROVIDED HISTORY: pain TECHNOLOGIST PROVIDED HISTORY: pain FINDINGS: No acute fracture demonstrated. Alignment is anatomic. 2 threaded screws noted within the medial malleolus. Olze-ro-rhigmalm degenerative change primarily midfoot. Small plantar and dorsal calcaneal spurs present. Soft tissues unremarkable. IMPRESSION: No acute findings. Interpreted by: Jeronimo Art DO Signed by: Jeronimo Art DO 09/13/21 Final result Normal [facility] Radiology Study observation (narrative) [employer] Phone: XR ABDOMEN (KUB) (SINGLE AP VIEW)on [...] Kerri Scott MD 05/08/21 Final result Normal [facility] XR ABDOMEN (KUB) (SINGLE AP VIEW)Ordered By: Quincy Interiano on 05-08-2021 Nonobstructive bowel gas pattern. No radiodensities diagnostic of nephroliths. [employer] Phone: EXAMINATION: ONE SUPINE XRAY VIEW(S) OF THE ABDOMEN 05/08/2021 10:35 am COMPARISON: 01 May 2021 HISTORY: ORDERING SYSTEM PROVIDED HISTORY: Microscopic hematuria FINDINGS: The bowel gas pattern is non obstructive. No organomegaly, free air or abnormal calcifications are noted. Mild levo scoliotic curvature is present. [employer] Phone: [place], pn Incoming Radiant Results From [employer] - 05/08/2021 2:06 PM EDT EXAMINATION: ONE SUPINE XRAY VIEW(S) OF THE ABDOMEN 05/08/2021 10:35 am COMPARISON: 01 May 2021 HISTORY: ORDERING SYSTEM PROVIDED HISTORY: Microscopic hematuria FINDINGS: The bowel gas pattern is non obstructive. No organomegaly, free air or abnormal calcifications are noted. Mild levo scoliotic curvature is present. IMPRESSION: Nonobstructive bowel gas pattern. No radiodensities diagnostic of nephroliths. [employer] Phone: [employer] Phone: No Panel InformationOrdered By: Fatuma Sanchez on 05-01-2021 1. No acute osseous abnormality of the right ankle. Posttraumatic and postsurgical changes as above. Mild tibiotalar joint osteoarthritis. 2. Acute osseous abnormality of the right foot. Chronic appearing well-defined erosion or subchondral cyst at the base of the 3rd metatarsal without associated joint space loss. This is a nonspecific finding. [employer] Phone: EXAMINATION: THREE XRAY VIEWS OF THE [...] base of the 3rd metatarsal is nonspecific. [employer] Phone: [place], pn Incoming Radiant Results From [employer] - 05/01/2021 5:46 PM EDT EXAMINATION: THREE [...] space loss. This is a nonspecific finding. [employer] Phone: [employer] Phone: Unremarkable left wrist/left hand series. There are no plain radiographic findings to suggest an active synovial process of bone as rheumatoid arthritis [employer] Phone: EXAMINATION: 2 XRAY VIEWS OF THE LEFT WRIST; TWO XRAY VIEWS OF THE LEFT HAND 05/01/2021 11:10 am COMPARISON: None. HISTORY: ORDERING SYSTEM PROVIDED HISTORY: Seropositive rheumatoid arthritis (HCC) FINDINGS: The bones and joints are unremarkable without definite fracture, dislocation, significant degenerative/erosive change, radiopaque foreign body, abnormal soft tissue calcification or bony destructive lesion [employer] Phone: [place], [facility] [[email or web address] Incoming Radiant Results From [employer] - 05/01/2021 11:26 AM EDT EXAMINATION: 2 XRAY VIEWS OF THE LEFT WRIST; TWO XRAY VIEWS OF THE LEFT HAND 05/01/2021 11:10 am COMPARISON: None. HISTORY: ORDERING SYSTEM PROVIDED HISTORY: Seropositive rheumatoid arthritis ([facility]) FINDINGS: The bones and joints are unremarkable without definite fracture, dislocation, significant degenerative/erosive change, radiopaque foreign body, abnormal soft tissue calcification or bony destructive lesion IMPRESSION: Unremarkable left wrist/left hand series. There are no plain radiographic findings to suggest an active synovial process of bone as rheumatoid arthritis [employer] Phone: [employer] Phone: XR ABDOMEN (KUB) (SINGLE AP VIEW)on [...] Linda Albarran MD 05/01/21 Final result Normal [facility] XR ABDOMEN (KUB) (SINGLE AP VIEW)Ordered By: Quincy Interiano on 05-01-2021 No significant radiographic abnormality in the abdomen. [employer] Phone: EXAMINATION: ONE SUPINE XRAY VIEW(S) OF THE ABDOMEN 05/01/2021 10:51 am COMPARISON: None. HISTORY: ORDERING SYSTEM PROVIDED HISTORY: Pain FINDINGS: Nonobstructive bowel gas pattern. No abnormal calcifications overlying the gallbladder urinary tract. No mass effect. Osseous structures grossly intact. [employer] Phone: [place], [facility] [[email or web address] Incoming Radiant Results From [employer] - 05/01/2021 11:21 AM EDT EXAMINATION: ONE SUPINE XRAY VIEW(S) OF THE ABDOMEN 05/01/2021 10:51 am COMPARISON: None. HISTORY: ORDERING SYSTEM PROVIDED HISTORY: Pain FINDINGS: Nonobstructive bowel gas pattern. No abnormal calcifications overlying the gallbladder urinary tract. No mass effect. Osseous structures grossly intact. IMPRESSION: No significant radiographic abnormality in the abdomen. [employer] Phone: [employer] Phone: XR ANKLE LEFT (MIN 3 VIEWS)o [...] Clarissa Gomez MD 05/01/21 Final result Normal [facility] XR ANKLE LEFT (MIN 3 VIEWS)O rdered By: Fatuma Sanchez on 05-01-2021 Moderate calcaneal spurring [employer] Phone: EXAMINATION: THREE XRAY VIEWS OF THE LEFT ANKLE 05/01/2021 11:12 am COMPARISON: None. HISTORY: ORDERING SYSTEM PROVIDED HISTORY: Seropositive rheumatoid arthritis (HCC) FINDINGS: There is moderate spurring of the superior aspect of the os calcis. The bones and joints are otherwise unremarkable without definite effusion, acute fracture, dislocation radiopaque foreign body or bony destructive lesion [employer] Phone: [place], [facility] [[email or web address] Incoming Radiant Results From [employer] - 05/01/2021 11:21 AM EDT EXAMINATION: THREE [...] bony destructive lesion IMPRESSION: Moderate calcaneal spurring [employer] Work Phone: [facility] [employer] Work Phone: XR ANKLE RIGHT (MIN 3 [...] Michael Caceres MD 05/01/21 Final result Normal [facility] XR FOOT LEFT (2 VIEWS)on XR [...] Clarissa Gomez MD 05/01/21 Final result Normal [facility] XR FOOT LEFT (2 VIEWS)Ordere d By: Fatuma Sanchez on 05-01-2021 Mild degenerative changes There are no plain radiographic findings to suggest an active synovial process of bone as rheumatoid arthritis [employer] Phone: EXAMINATION: TWO XRA Y VIEWS OF [...] radiopaque foreign body or bony destructive lesion [employer] Phone: [place], [facility] [[email or web address] Incoming Radiant Results From [employer] - 05/01/2021 11:29 AM EDT EXAMINATION: TWO [...] synovial process of bone as rheumatoid arthritis [employer] Phone: [employer] Phone: XR FOOT RIGHT (2 VIEWS)on XR [...] Michael Caceres MD 05/01/21 Final result Normal [facility] XR HAND LEFT (2 VIEWS)on XR [...] Clarissa Gomez MD 05/01/21 Final result Normal [facility] XR HAND RIGHT (2 VIEWS)on XR [...] Clarissa Gomez MD 05/01/21 Final result Normal [facility] XR HAND RIGHT (2 VIEWS)Order ed By: Fatuma Sanchez on 05-01-2021 Unremarkable two-vie w right hand series. There are no definite plain radiographic findings to suggest an active synovial process of bone as rheumatoid arthritis [employer] Phone: EXAMINATION: TWO XRA Y VIEWS OF THE RIGHT HAND 05/01/2021 11:12 am COMPARISON: None. HISTORY: ORDERING SYSTEM PROVIDED HISTORY: Seropositive rheumatoid arthritis (HCC) FINDINGS: The bones and joints are unremarkable without definite fracture, dislocation, significant degenerative/erosive change, radiopaque foreign body, abnormal soft tissue calcification or bony destructive lesion [employer] Phone: [place], [facility] [[email or web address]] Incoming Radiant Results From [employer] - 05/01/2021 11:24 AM EDT EXAMINATION: TWO [...] synovial process of bone as rheumatoid arthritis [employer] Phone: [employer] Phone: XR WRIST LEFT (2 VIEWS)on XR [...] Clarissa Gomez MD 05/01/21 Final result Normal [facility] XR WRIST RIGHT (2 VIEWS)on 0 [...] Clarissa Gomez MD 05/01/21 Final result Normal [facility] XR WRIST RIGHT (2 VIEWS)Orde red By: Fatuma Sanchez on 05-01-2021 Unremarkable two-vie w right wrist series [employer] Phone: EXAMINATION: 2 XRAY VIEWS OF THE RIGHT WRIST; 05/01/2021 11:11 am COMPARISON: None. HISTORY: ORDERING SYSTEM PROVIDED HISTORY: Seropositive rheumatoid arthritis (HCC) FINDINGS: The bones and joints are unremarkable without definite fracture, dislocation, significant degenerative/erosive change, radiopaque foreign body or bony destructive lesion [employer] Phone: [place], [employer] Incoming Radiant Results From [employer] - 05/01/2021 11:23 AM EDT EXAMINATION: 2 XRAY VIEWS OF THE RIGHT WRIST; 05/01/2021 11:11 am COMPARISON: None. HISTORY: ORDERING SYSTEM PROVIDED HISTORY: Seropositive rheumatoid arthritis (HCC) FINDINGS: The bones and joints are unremarkable without definite fracture, dislocation, significant degenerative/erosive change, radiopaque foreign body or bony destructive lesion IMPRESSION: Unremarkable two-view right wrist series [employer] Phone: [employer] Phone: XR WRIST RIGHT (MIN 3 VIEWS) [...] Ebenezer Pepe MD 03/01/21 Final result Normal [facility] XR WRIST RIGHT (MIN 3 VIEWS) Ordered By: Apryl Tucker on 03-01-2021 Unremarkable right wrist. [employer] Phone: EXAMINATION: 3 XRAY VIEWS OF THE [...] degenerative findings. No appreciable soft tissue abnormality. [employer] Phone: [place], pn Incoming Radiant Results From [employer] - 03/01/2021 7:52 PM EDT EXAMINATION: 3 [...] soft tissue abnormality. IMPRESSION: Unremarkable right wrist. [employer] Phone: [facility] [employer] Work Phone: XR KNEE RIGHT (1-2 VIEWS)on [...] Signed by: Damion Leung MD 11/07/20 Recipients: Shahrzad Hensley APRN - GRITTING MACHINE OPERATOR - (authorizing provider) Final result Normal [facility] XR KNEE RIGHT (3 VIEWS)on Joint effusion witho ut acute osseous abnormality. [facility] [place] EXAMINATION: THREE XRAY VIEWS OF THE RIGHT [...] effusion. The periarticular soft tissues are unremarkable. [place], [place] Luther, [employer] Incoming Radiant Results From [employer] - 09/04/2019 6:08 PM EST EXAMINATION: THREE [...] IMPRESSION: Joint effusion without acute [facility]seous abnormality. [facility] [place] [facility] (MIN 3 VIEWS)on 05-12-2019 No acute osseous abnormality. [facility] [place] EXAMINATION: THREE XRAY VIEWS OF THE LEFT HAND 05/12/2019 12:22 pm COMPARISON: November 12, 2018 HISTORY: ORDERING SYSTEM PROVIDED HISTORY: pain TECHNOLOGIST PROVIDED HISTORY: pain FINDINGS: There is no evidence of acute fracture. There is normal alignment. No acute joint abnormality. No focal osseous lesion. No focal soft tissue abnormality. [facility] [place], [employer] Incoming Radiant Results From [employer] - 05/12/2019 12:48 PM EDT EXAMINATION: THREE XRAY VIEWS OF THE LEFT HAND 05/12/2019 12:22 pm COMPARISON: November 12, 2018 HISTORY: ORDERING SYSTEM PROVIDED HISTORY: pain TECHNOLOGIST PROVIDED HISTORY: pain FINDINGS: There is no evidence of acute fracture. There is normal alignment. No acute joint abnormality. No focal osseous lesion. No focal soft tissue abnormality. IMPRESSION: No acute osseous abnormality. [facility] [place] MRI BRAIN WO CONTRASTon 04-03 MRI BRAIN [...] Tiffanie Hughes MD 04/24/19 Final result Normal [facility] MRI CERVICAL SPINE WO CONTRA STon 04-24-2019 [...] Tiffanie Hughes MD 04/24/19 Final result Normal [facility] Vital Signs Date Time Vital Sign Value Performing Clinician Robson henry 05-15-2024 14:12-0400 Blood Pressure Location [facility] [employer] 05-15-2024 14:12-0400 Diastolic blood pressure 76 mm[Hg] David NILL [facility] 05-15-2024 14:12-0400 Heart rate 76 /min David NILL [facility] 05-15-2024 14:12-0400 Respiratory rate 16 /min David NILL [facility] 05-15-2024 14:12-0400 Systolic blood pressure 118 mm[Hg] David NILL [facility] 09-13-2021 08:22-0500 Diastolic blood pressure 86 mm[Hg] Francis Pinto DO Work Phone: [facility] 09-13-2021 08:22-0500 Systolic blood pressure 147 mm[Hg] Francis Pinto DO Work Phone: [employer] 09-13-2021 08:20-0500 Body mass index (BMI) [Ratio] 37.2 kg/m2 Francis Melendrezrov DO Work Phone: [employer] 09-13-2021 08:20-0500 Body temperature 97.39 [degF] Francis Melendrezrov DO Work Phone: [employer] 09-13-2021 08:20-0500 Body weight 95.25 kg Francis Melendrezrov DO Work Phone: [employer] 09-13-2021 08:20-0500 Heart rate 85 /min Francis Melendrezrov DO Work Phone: [employer] 09-13-2021 08:20-0500 Respiratory rate 16 /min Francis Melendrezrov DO Work Phone: [employer] 09-13-2021 08:20-0500 SaO2% (BldA) [Mass fraction] 99 % Francis Melendrezrov [employer] Work Phone: [employer] 03-01-2021 18:28-0400 Diastolic blood pressure 96 mm[Hg] [employer] Work Phone: [employer] Work Phone: 03-01-2021 18:28-0400 Systolic blood pressure 151 mm[Hg] Clari Mikala Work Phone: [employer] Work Phone: 03-01-2021 18:26-0400 Body temperature 98.71 [degF] [employer] Work Phone: [employer] Work Phone: 03-01-2021 18:26-0400 Heart rate 70 /min [employer] Work Phone: [employer] Work Phone: 03-01-2021 18:26-0400 Respiratory rate 18 /min [employer] Work Phone: [employer] Work Phone: 03-01-2021 18:26-0400 SaO2% (BldA) [Mass fraction] 98 % Clari Dumont Work Phone: [facility] [employer] Work Phone: 09-06-2019 20:00-0500 Body Temperature 97.9 [degF] Oscar Claytonimes [facility] [place] 09-06-2019 20:00-0500 BP Diastolic 100 mm[Hg] [facility] [place] 09-06-2019 20:00-0500 BP Systolic 154 mm[Hg] [facility] [place] 09-06-2019 20:00-0500 Pulse (Heart Rate) 89 /min [facility] [place] 09-06-2019 20:00-0500 Pulse Oximetry 97 % [facility] [place] 09-06-2019 20:00-0500 Respiratory Rate 19 /min [facility] [place] 09-04-2019 17:38-0500 BMI (Body Mass Index) 36.49 kg/m2 David Huitronpatrick [facility], [place] 09-04-2019 17:38-0500 Body Temperature 98.2 [degF] David Perez [facility], [place] 09-04-2019 17:38-0500 Body weight 93.44 kg aDvid Huitronpatrick [facility], [place] 09-04-2019 17:38-0500 BP Diastolic 94 mm[Hg] [facility] [place] 09-04-2019 17:38-0500 BP Systolic 142 mm[Hg] [facility] [place] 09-04-2019 17:38-0500 Pulse (Heart Rate) 87 /min David Carter [facility], [place] 09-04-2019 17:38-0500 Pulse Oximetry 99 % David Perez [facility], [place] 09-04-2019 17:38-0500 Respiratory Rate 14 /min David Carter [facility], [place] 05-12-2019 12:15-0400 Body Temperature 98.01 [degF] Clari Dumont [facility], [place] 05-12-2019 12:14-0400 BP Diastolic 85 mm[Hg] [facility] , [place] 05-12-2019 12:14-0400 BP Systolic 152 mm[Hg] [facility] [place] 05-12-2019 12:14-0400 Pulse (Heart Rate) 87 /min [facility], [place] 05-12-2019 12:14-0400 Pulse Oximetry 96 % Clari Dumont [facility] , [place] 05-12-2019 12:14-0400 Respiratory Rate 16 /min [facility], [place] Encounters Encounter Date Encounter Type Care Provider Facility Start: 07-18-2024 End: 07-18-2024 Bamboo flowsheet Ruth Ann Gonzalez EDITING CLERK Work Phone: [facility] Start: 07-18-2024 End: 07-18-2024 Bamboo flowsheet Ruth Ann Gonzalez EDITING CLERK Work Phone: [facility] Start: 07-18-2024 End: 07-18-2024 Office outpatient visit 25 minutes Ruth Ann Gonzalez EDITING CLERK Work Phone: [facility] Comment on above: Low back pain, unspe cified back pain laterality, unspecified chronicity, unspecified whether sciatica present (Primary Dx); Bilateral sciatica Start: 07-18-2024 End: 07-18-2024 ambulatory RUTH ANN GONZALEZ Not Available Start: 05-15-2024 End: 05-15-2024 ambulatory ISABELLA KAPLAN Facility:[facility] Start: 05-15-2024 End: 05-15-2024 Patient encounter procedure David DIAMOND [facility] [place] Start: 01-24-2024 End: 01-24-2024 ambulatory WILL SANTANA Not Available Start: 01-11-2024 End: 01-11-2024 ambulatory RUTH ANN B APLING Not Available Start: 12-12-2023 End: 12-12-2023 ambulatory RUTH ANN Elkins APLING Not Available Start: 11-28-2023 End: 11-28-2023 ambulatory RUTH ANN Elkins APLING Not Available Start: 09-27-2023 ambulatory ISABELLA Roxana KAPLAN Facilit y:DARIAN Nicholas Start: 09-12-2023 End: 09-12-2023 ambulatory RUTH ANN Elkins APLING Not Available Start: 08-22-2023 ambulatory ISABELLA KAPLAN Facility: [facility] Start: 08-12-2023 ambulatory Lakshmi Ruiz [facility] Start: 07-06-2022 End: 07-07-2022 ambulatory ISABELLA KAPLAN Facility:[facility] Start: 05-21-2022 End: 05-22-2022 ambulatory ISABELLA KAPLAN Facility:[facility] Start: 03-19-2022 End: 03-27-2022 ambulatory ISABELLA KAPLAN Facility:[facility] Start: 02-22-2022 End: 02-23-[address] APRYL RIOS Facility:[facility] Start: 09-23-2021 End: 09-23-2021 [facility] Start: 09-21-2021 End: 09-21-2021 Emergency department patient visit CLARI WOLFHMANN [facility] Start: 09-13-2021 End: 09-13-2021 Emergency department patient visit FRANCIS Bacilio MELENDREZLilly [facility] Start: 09-13-2021 End: 09-13-2021 [facility] Phone: [facility] Comment on above: Sprain of right foot , initial encounter (Primary Dx); Sprain of left ankle, unspecified ligament, initial encounter Start: 05-08-2021 End: 05-11-2021 ambulatory [facility]IN[facility] INTER[facility]O [facility] Start: 05-08-2021 End: 05-10-2021 Subsequent hospital visit by physician Karoline Varela 4 [facility] Comment on above: Microscopic hematuri a; Flank pain; Hydronephrosis with ureteral calculus Start: 05-01-2021 End: 05-04-2021 [facility]ulatory [facility] Start: 05-01-2021 End: 05-03-2021 Subsequent hospital visit by physician Karoline Meek Dr Room 2 [facility] Comment on above: Seropositive rheumat oid arthritis (HCC) Pain Start: 03-01-2021 End: 03-01-2021 [facility] Start: 03-01-2021 End: 03-01-2021 Emergency department patient visit Clari Wolfhmann Work Phone: [facility] Comment on above: Strain of right wris t, initial encounter (Primary Dx) Start: 11-07-2020 End: 11-10-2020 ambulatory SHAHRZAD HENSLEY [facility] Start: 11-07-2020 End: 11-09-2020 Subsequent hospital visit by physician Clari Wolfhmann [facility] Start: 09-06-2019 End: 09-06-2019 Emergency department patient visit Oscar Zuniga Work Phone: [facility] Comment on above: Sprain of collateral ligament of right knee, initial encounter (Primary Dx) Start: 09-04-2019 End: 09-04-2019 Emergency department patient visit David Perez [facility] ED Comment on above: Injury of right knee , initial encounter (Primary Dx); Effusion of right knee joint Start: 05-12-2019 End: 05-12-2019 Emergency department patient visit [facility] ED Comment on above: Contusion of left coles nd including fingers, initial encounter (Primary Dx) Start: 04-20-2019 End: 04-20-2019 Emergency department patient visit JEAN HARPER [facility] Start: 07-29-2017 End: 07-30-2017 Ambulatory Nilo Mendez Facility:[facility] Procedures Date Procedure Procedure Detail Performing Clinician Start: 09-13-2021 End: 09-13-2021 Radex ankle complete minimum 3 views Francis Pinto DO Work Phone: Start: 05-08-2021 Radiologic exam abdo men 1 view Quincy Interiano Work Phone: Start: 05-01-2021 End: 05-01-2021 Radex ankle complete minimum 3 views Fatuma Sanchez MD Work Phone: Start: 03-01-2021 Radex wrist complete minimum 3 views Apryl Tucker PA-C Work Phone: Start: 09-04-2019 Radiologic examinati on knee 3 views David Perez Start: 05-12-2019 Radex hand minimum 3 views Itzel Nice Work Phone: Start: 04-20-2019 Mri brain brain stem w/o contrast material JEAN LEROY Start: 04-20-2019 Mri spinal canal cer vical w/o contrast matrl JEAN HARPER Start: 04-20-2019 IP CONSULT TO NEUROLOGY JEAN DIAMOND Fracture of ankle (disorder) David DIAMOND Plan of Treatment Date Care Activity Detail Author Start: 11-28-2027 DTaP/Tdap/Td vaccine (2 - Td or Tdap) DTaP/Tdap/Td vaccine (2 - Td or Tdap) [facility] Start: 11-28-2027 DTaP/Tdap/Td vaccine (2 - Td) DTaP/Tdap/Td vaccine (2 - Td) [place] Start: 08-01-2024 End: 08-01-2024 Patient encounter procedure 08/01/2024 8:00 AM EDT Office Visit [facility] [address] [place] [address] Ruth Ann Gonzalez EDITING CLERK [address] [place] [address] [facility] Start: 07-18-2024 End: 07-18-2024 Patient encounter procedure 07/18/2024 8:45 AM EDT Office Visit [facility] [address] [place] [address] Ruth Ann Gonzalez, EDITING CLERK [address] [place] [address] Low back pain, unspecified back pain laterality, unspecified chronicity, unspecified whether sciatica present (Primary Dx) [facility] Comment on above: Low back pain, unspe cified back pain laterality, unspecified chronicity, unspecified whether sciatica present (Primary Dx) Start: 11-25-2021 End: 11-25-2021 Patient encounter procedure 11/25/2021 Office Visit Rheumatology Fatuma Sanchez MD [address] [place] [address] [facility] Start: 06-24-2021 End: 06-24-2021 Patient encounter procedure 06/24/2021 Office Visit Rheumatology Fatuma Sanchez MD [address] [place] [address] [phone] [facility] Start: 06-03-2021 Influenza vaccination [facility] Start: 2021 Lipid panel Lipid screen [facility] Start: 06-03-2020 Influenza vaccination Flu vaccine (# 1) [place], [place] Start: 06-03-2019 Influenza vaccination Flu vaccine (# 1) [place] Start: 2016 Diabetes screen Diabetes screen [facility] Start: 2000 DTaP/Tdap/Td vaccine (1 - Tdap) DTaP/Tdap/Td vaccine (1 - Tdap) [place] Start: 1996 HIV screen HIV screen [place], [place] Start: 1996 HIV screening HIV screen [facility] Start: 1994 Varicella Vaccine (1 of 2 - 13+ 2-dose series) Varicella Vaccine (1 of 2 - 13+ 2-dose series) [place] Start: 1993 COVID-19 Vaccine (1) COVID-19 Vaccin e (1) [facility] Start: 1992 DTaP/Tdap/Td vaccine (1 - Tdap) DTaP/Tdap/Td vaccine (1 - Tdap) [place] Start: 1982 Varicella Vaccine (1 of 2 - 2-dose childhood series) Varicella Vaccine (1 of 2 - 2-dose childhood series) [facility] Start: 1981 Hepatitis C screening Hepatitis C sc reen [facility] End: 05-12-2019 Splint application Splint application Procedures STAT One Time for 1 Occurrences starting 05/12/2019 until 05/12/2019 [place], [place] Comment on above: One Time for 1 Occur rences starting 05/12/2019 until 05/12/2019 Immunizations Immunization Date Immunization Notes Care Provider Fa cility 10-22-2019 influenza, injectable, quadrivalent, preservative free Ruth Ann Gonzalez EDITING CLERK Work Phone: [facility] 11-28-2017 tetanus toxoid, reduced diphtheria toxoid, and acellular pertussis vaccine, adsorbed Ruth Ann Gonzalez EDITING CLERK Work Phone: [facility] 07-14-2010 influenza virus vaccine, whole virus Clari Dumont [place], [place] NEGATED: Highlighted row has not occurred!05-11-2021 SARS-CoV-2 (COVID-19) Ad26 vaccine, recombinant David NILL [facility] Payers Date Payer Category Payer [facility] BCBS [id number] 2024 Unknown [id number] 2022 Medicaid [id number] 2020 Unknown [id number]. [id number] 2019 Unknown [id number] 2019 Unknown [facility] [place] [id number] xxxxxxxxx 2019-Present [address] [address] [place] [address] xxxxxxxxx [id number]. 7.3.845196.315 1981 Unknown [id number] 2.16.840.1.462668.3.579.2. 175 1981 Unknown [id number] 2.16.840.1.333971.3.579.2. 173 1981 Unknown [id number] 2.16.840.1.780840.3.579.2. 173 1981 Unknown [id number] 2.16.840.1.201888.3.579.2. 173 1981 Unknown [id number] 2.16.840.1.075812.3.579.2. 173 1981 Unknown [id number] 2.16.840.1.532566.3.579.2. 173 1981 Unknown [id number] 2.16.840.1.198423.3.579.2. 173 1981 Unknown [id number] 2.16.840.1.717997.3.579.2. 173 1981 Unknown [id number] 2.16.840.1.408618.3.579.2. 173 1981 Unknown [id number] 2.16.840.1.593318.3.579.2. 173 1981 Unknown [id number] 2.16.840.1.275524.3.579.2. 173 1981 Unknown [id number] 2.16.840.1.075839.3.579.2. 173 1981 Unknown [id number] 2.16.840.1.260722.3.579.2. 173 1981 Unknown [id number] 2.16.840.1.813054.3.579.2. 173 1981 Unknown [id number] 2.16.840.1.550239.3.579.2. 173 1981 Unknown [id number] 2.16.840.1.899540.3.579.2. 173 1981 Unknown [id number] 2.16.840.1.487029.3.579.2. 173 1981 Unknown [id number] 2.16.840.1.148028.3.579.2. 173 1981 Unknown [id number] 2.16840.1.468493.3.579.2. 173 1981 Unknown [id number] 2.16840.1.868334.3.579.2. 173 1981 Unknown [id number] 2.16840.1.545320.3.579.2. 593 1981 Unknown [id number] 2.16840.1.139864.3.579.2. 593 1981 Unknown [id number] 2.16840.1.198980.3.579.2. 593 1981 Unknown [id number] 2.16840.1.236399.3.579.2. 593 1981 Unknown [id number] 2.16840.1.722022.3.579.2. 727 1981 Unknown [id number] 2.16.840.1.950202.3.579.2. 727 1981 Unknown [id number] 2.16.840.1.955570.3.579.2. 1259 1981 Unknown [id number] 2.16.840.1.532327.3.579.2. 1259 1981 Unknown [id number] 2.16.840.1.407401.3.579.2. 1259 1981 Unknown [id number] 2.16.840.1.098049.3.579.2. 9 1981 Unknown [id number] 2.16.840.1.939016.3.579.2. 1258 1981 Unknown [id number] 2.16.840.1.437160.3.579.2. 1258 1981 Unknown [id number] 2.16.840.1.905205.3.579.2. 1258 1981 Unknown [id number] 2.16.840.1.340441.3.579.2. 1258 1981 Unknown [id number] 2.16.840.1.060299.3.579.2. 9 1959 Unknown [id number] 1.2.840.886705.1.13.239.2. 7.3.130952.315 1959 Unknown [id number] Social History Date Type Detail Facility Start: 09-04-2019 End: 02-10-2023 Tobacco smoking status NHIS Never smoker [facility] [employer] Start: 09-04-2019 End: 03-27-2021 Alcohol intake Current non-drinker of alcohol (finding) [place], [place] Start: 10-16-2017 Alcohol Comment [place] Start: 1980 Sex Assigned At Not on file [place] Start: 05-12-2019 End: 01-11-2024 Alcohol intake No [facility] Start: 09-06-2019 End: 02-10-2023 Tobacco use and exposure Never used [place], [place] Exposure to SARS-CoV -2 (event) Not sure [facility] Start: 03-27-2021 Alcohol Comment very rare Emma parikh Work Phone: Tobacco smoking status Never [facility] [place] Start: 01-11-2024 End: 07-18-2024 Alcoholic beverage intake Current drinker of alcohol (finding) [facility] Start: 01-11-2024 End: 07-18-2024 Alcoholic beverage intake [facility] Start: 02-10-2023 Alcohol Comment caffeine intak e: 3-4 cups per day, soda [facility] Start: 10-03-2023 Gender identity Identifies as male gender (finding) [facility] Functional Status Date Assessment Result Facility 05-15-2024 Functional Status N/A [facility] [place] Clinical Notes 09-13-2021 to 07-18-2024 Ruth Ann Gonzalez EDITING CLERK - 07/18/2024 8:45 AM EDTInstructionsAttachments Note Date & Type Note Facility 07-18-2024 History of Present illness Narrative Subjective Patient ID: Junior Gonzalez is a 44 y.o. male. LT side LBP/LT hip Last s/p RT SI trigger point depo medrol injection (12/12/23) with 70% improvement until 2 months ago, denies new injury. He is c/o of LT side low back pain and LT hip pain x 2 months, NKI. States it is progressively getting worse. Constant LBP and LT buttock pain. Low back pain on both sides, a little worse on the left. Pain in LT buttock and occas radiates anterior to his groin. Also notes he will occas get a sharp pain in the center of his abdomen. Admits waking HS. 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 Describes pain as a constant dull ache and with certain movements can be sharp. Pain at rest 7/10. Pain at worst 9/10 with bending/twisting. Admits IBU with little relief. Has tried ice and heat without relief. Admits cracking/popping in the low back. Admits N/T that goes to bilateral feet, that is intermittent but happening more frequently. Notes this is more prominent in the LT leg now than the RT. Admits some constipation that comes and goes and frequent urination a, when he has a lot of pain, and sometimes feels like he will pee his pants x past 2 months (May 2024) Notes he has a new job working at a [employer], 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 TX: XR [facility] 11/28/23, IBU, ice, heat, biofreeze, MDP 11/28/23, RT SI trigger point injection 12/12/23 Objective Ortho Exam Spine Musculoskeletal Exam Gait Gait additional comments: Pain with extension and flexion of the l-spine, no pain with turning to the right or left, pain with leaning to the left. Negative straight leg raise bilaterally. 5/5 knee flexion/extension/hip abduction/adduction. Pain over tailbone and bilateral SI joint Assessment/Plan Encounter Diagnoses: ICD-10-CM 1. Low back pain, unspecified back pain laterality, unspecified chronicity, unspecified whether sciatica present M54.50 methylPREDNISolone (Medrol Dospak) 4 MG tablets 2. Bilateral sciatica M54.31 M54.32 will try MDP, take as directed, no nsaids while taking MDP until 24 hrs after the last dose of MDP, may increase BP/HR, f/U in 2 weeks, discussed heat and also lidocaine patches, he may continue to do activities as tolerated documented in this encounter [facility] 05-15-2024 Note General Surgery Offi ce/Clinic Note [...] qualifying data Procedure/Surgica (more content not included)... [facility] Comment on above: Result Comment: Elec tronically Signed By: DARA FARIAS, David Loera\.br\Date and Time Signed: 05/15/24 14:59 EDT 11-11-2023 Note TC to Home number fo r EDITING CLERK referral for: Elevated Rheumatoid Factor Referral in intermediate teacher Spoke with son and provider Rheum clinic call back number. Son states he will give his father the message to return call. [facility] 07-06-2022 Note CONSULTATION CONSULTATION DATE: 07/06/2022 [...] work. 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 He has low back pain 3/10. The [...] in office. CC: Chen Kaplan CNP [facility] 09-13-2021 Hospital Discharge instructions Francis Pinto DO - 09/13/2021 Return to the Emergency Department immediately if you develop worsening pain, numbness, weakness , or you have any other concerns. Please follow up with your orthopaeidc doctor in 2-3 days. Ice, elevate Use crutches The following attachments cannot be sent through Care Everywhere.Ankle Sprain (Tongan)documented in this encounter [employer] Phone: Evaluation + Plan note No data available for this section [facility] [employer] Evaluation note Diagnosis Strain of right wrist, initial encounter- Primary documented in this encounter [employer] Phone: evaluation note* Diagnosis Seropositive rheumatoid arthritis (HCC) Rheumatoid arthritis documented in this encounter [employer] Phone: evaluation note* Diagnosis Pain Generalized pain documented in this encounter [employer] Phone: evaljeagvj note* Diagnosis Microscopic hematuria Flank pain Abdominal pain, unspecified site Hydronephrosis with ureteral calculus Calculus of ureter documented in this encounter [employer] Phone: evaluation note* Diagnosis Sprain of right foot, initial encounter- Primary Sprain of left ankle, unspecified ligament, initial encounter documented in this encounter [employer] Phone: evaluation note* Diagnosis Low back pain, unspecified back pain laterality, unspecified chronicity, unspecified whether sciatica present- Primary Bilateral sciatica Sciatica documented in this encounter [facility]* Attachments The following attachments cannot be sent through Care Everywhere. * Strain or Sprain (Tongan) documented [facility] Phone: Hospital Discharge instructions No data available for this section [facility] [employer] Progress note No data available for this section [facility] [employer] Summary Purpose Family History No Family History Records FoundNo Family History Records FoundNo Family History Records FoundNo Family History Records FoundNo Family History Records FoundNo Family History Records Found No data available for this section No Family History Records FoundNo Family History Records Found Advance Directives No Advanced Directives Records FoundDocuments on File Type Date Recorded Patient Work Manager Expl anation Advance Directives and Living Will Power of Wire Stitcher Documents on File Type Date Recorded Patient Work Manager Expl anation ACP-Advance Directive ACP-Power of Wire Stitcher Assessments Diagnosis Injury of right knee, initial [...] sent through Care Everywhere. * Finger: Bruises (Tongan) documented in this encounter* Attachments The following attachments cannot be sent through Care Everywhere. * Knee Sprain (Tongan) documented in this encounter Additional Source Comments (unrecognized sect ion and content) No Status Records FoundNo Status Records FoundNo Status Records FoundNo Status Records FoundNo Status Records FoundNo Status Records FoundNo Status Records FoundNo Status Records Found INFORMATION SOURCE (unrecogn ized section and content) DATE CREATED AUTHOR 03/31/2018 [facility] DATE CREATED AUTHOR AUTHOR'S ORGANIZ ATION 04/26/2019 [facility] DATE CREATED AUTHOR AUTHOR'S ORGANIZ ATION 09/23/2021 [place] DATE CREATED AUTHOR AUTHOR'S ORGANIZ ATION 02/16/2023 [facility] DATE CREATED AUTHOR AUTHOR'S ORGANIZ ATION 08/14/2023 [facility] DATE CREATED AUTHOR AUTHOR'S ORGANIZ ATION 11/13/2023 [facility] DATE CREATED AUTHOR AUTHOR'S ORGANIZ ATION 05/16/2024 [facility] DATE CREATED AUTHOR AUTHOR'S ORGANIZ ATION 07/20/2024 [facility] d[facility] Specialists EPIC Reason for Visit (unrecogniz [...] bottom step--injury on Ankle Pain left ankle Reason Comments Pain Ordered Prescriptions (unrec ognized section and content) [...] Care Teams (unrecognized sec tion and content) Cabinet Installer Relationship Specialty Start Date [place] [address] PCP - General Nurse Practitioner 04/21/19 Cabinet Installer Relationship Specialty Start Date End Date Ac Schmid MD [address] [place] [phone] PCP - General Family Medicine 02/08/23 [place] [address] [place] [address] Referring Physician Family Medicine 09/12/23 Cabinet Installer Relationship Specialty Start Date End Date Ac Schmid MD [address] [place] [address] PCP - General Family Medicine 02/08/23 Isabella Kaplan MD [address] [place], [place] [id number] Referring Physician Family Medicine 09/12/23 FOR RECORDS PERTAINING TO PATIENTS WHO ARE [...] BE BASED ON THE PRIMARY CLINICAL RECORDS. [employer] provides no warranty or guarantee of the accuracy or completeness of information in this document.
[2024-07-24 00:08] VITALS: BP 136/92; PULSE 84; TEMP 36.9; O2SAT 96; BMI 35.4
--- NOTE | 2024-07-24 00:12 | XR_ITS ---
The [address] [address] Patient Name: ARIADNA MONTEIRO MRN: [id number] date: 1980 Sex: M Assigned Patient Location: ER Current Patient Location: Accession/Order Number: [id number] Exam Date: 07/24/2024 00:30 Report Date: 07/24/2024 02:57 At the request of: WHITNEY FLYNN Procedure: XR lumbar spine 2-3V EXAM: XR lumbar spine 2-3V HISTORY: Atraumatic pain COMPARISON: Lumbar spine radiographs dated 11/27/2023. TECHNIQUE: Frontal and lateral views of the lumbar spine and a coned-down lateral view of the lumbosacral junction were obtained. FINDINGS: There are 5 lumbar type vertebral bodies. No acute fracture or subluxation is seen. There is stable anterior wedging of the T12 vertebral body. Otherwise, the vertebral body heights are preserved. The vertebral elements are in anatomic alignment. There is mild degenerative disc disease at L4-L5. There are scattered degenerative changes including endplate osteophytes and degenerative facet arthropathy. The sacroiliac joints are patent. XR/XR lumbar spine 2-3V IMPRESSION: 1. Degenerative changes of the lumbar spine with no acute abnormality seen. Electronically authenticated by: Torey ARMANDO Date: 07/24/2024 02:57
--- NOTE | 2024-07-24 00:13 | ED.BACK1 ---
HPI HPI - Back Pain/Injury General Chief Complaint: Back Pain/Injury Stated Complaint: BACK PAIN Time Seen by Provider: 07/24/24 00:02 Source: patient Mode of arrival: walk-in Limitations: no limitations History of Present Illness HPI Narrative: 44-year-old male presents for low back pain. He has had it for 6 or 8 months and was not precipitated by injury but it got worse in the past few hours. No injury. No weakness or numbness in his legs and no dysuria or hematuria. It goes into both buttocks. The pain is moderate. Related Data Home Medications ?Medication ?Instructions ?Recorded ?Confirmed HYDROCHLOROTHIAZIDE 12.5 mg PO DAILY 06/15/24 06/15/24 allopurinol 100 mg tablet 100 mg PO DAILY 06/15/24 06/15/24 Previous Rx's ?Medication ?Instructions ?Recorded acetaminophen 300 mg-codeine 30 mg 1 tab PO Q6H PRN pain #20 tabs 07/24/24 tablet methocarbamol 750 mg tablet 750 mg PO Q6H PRN pain #20 tabs 07/24/24 Allergies Allergy/AdvReac Type Severity Reaction Status Date / Time Penicillins Allergy Severe Rash Verified 06/27/24 06:38 tramadol (From Ultram) Allergy Severe Rash Verified 06/27/24 06:38 Opioid HPI Opioid Management Most Recent Opioid Data: Last Pain Scale 8 07/24/24 00:12 07/24/24 Review of Systems ROS Narrative A ten point review of systems is negative except as noted above. PFSH PFS Medical History (Updated 07/24/24 @ 01:04 by Adrián Bee MD) Low back strain ?S39.012A - Strain of muscle, fascia and tendon of lower back, initial encounter (ICD-10) Influenza ?J11.1 - Influenza due to unidentified influenza virus with other respiratory manifestations (ICD-10) Gastroenteritis ?K52.9 - Noninfective gastroenteritis and colitis, unspecified (ICD-10) Bronchiolitis ?J21.9 - Acute bronchiolitis, unspecified (ICD-10) Anxiety ?F41.9 - Anxiety disorder, unspecified (ICD-10) Finger sprain ?S63.619A - Unspecified sprain of unspecified finger, initial encounter (ICD-10) Arthritis ?M19.90 - Unspecified osteoarthritis, unspecified site (ICD-10) Bipolar 1 disorder, depressed ?F31.9 - Bipolar disorder, unspecified (ICD-10) Cluster headaches ?G44.009 - Cluster headache syndrome, unspecified, not intractable (ICD-10) Hypertension ?I10 - Essential (primary) hypertension (ICD-10) DDD (degenerative disc disease) Rectal pain ?K62.89 - Other specified diseases of anus and rectum (ICD-10) Rectal bleeding ?K62.5 - Hemorrhage of anus and rectum (ICD-10) Insomnia ?G47.00 - Insomnia, unspecified (ICD-10) Normal colonoscopy Kidney stones, calcium oxalate ?N20.0 - Calculus of kidney (ICD-10) Anal fissure ?K60.2 - Anal fissure, unspecified (ICD-10) Surgical History (Updated 06/18/24 @ 10:57 by Shagufta Lowe RN) Hx of colonoscopy ?Z98.890 - Other specified postprocedural states (ICD-10) Status post ORIF of fracture of ankle ?Z98.890 - Other specified postprocedural states (ICD-10) ?Z87.81 - Personal history of (healed) traumatic fracture (ICD-10) Family History Other Family history of COPD (chronic obstructive pulmonary disease) Family history of diabetes mellitus Family history of hypertension Heart disease Multiple kidney stones Social History (Updated 06/18/24 @ 10:55 by Shagufta Lowe, RN) Within the past year, how often did you have a drink containing alcohol: never Score interpretation: A score less than 4 is consistent with normal alcohol consumption. 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 General: The patient appears no apparent distress. Patient is sitting on the edge of the cart. Skin: Warm, dry, no pallor noted. There is no rash noted. Head: Normocephalic, atraumatic Eye: Normal conjunctiva, no drainage Ears, Nose, Mouth, and Throat: oral mucosa is moist. Nares patent. Cardiovascular: Regular Rate and Rhythm Respiratory: Patient is in no distress, no accessory muscle use Back: No bruise or rash. He has some mild tenderness in the very low back. GI: Soft and nontender Musculoskeletal: The patient has no evidence of calf tenderness, no pitting edema, symmetrical pulses noted bilaterally Neurological: A&O, normal speech Psychiatric: Cooperative Constitutional Vital Signs, click to edit/add: Last Vital Signs Temp 98.5 F 07/24/24 00:08 Pulse 84 07/24/24 00:08 Resp 18 07/24/24 00:08 BP 136/92 H 07/24/24 00:08 Pulse Ox 96 07/24/24 00:08 O2 Del Method Room Air 07/24/24 00:08 Course Vital Signs Vital signs: Vital Signs Temperature 98.5 F 07/24/24 00:08 Pulse Rate 84 07/24/24 00:08 Respiratory Rate 18 07/24/24 00:08 Blood Pressure 136/92 H 07/24/24 00:08 Pulse Oximetry 96 07/24/24 00:08 Oxygen Delivery Method Room Air 07/24/24 00:08 Temperature 98.5 F 07/24/24 00:08 Pulse Rate 84 07/24/24 00:08 Respiratory Rate 18 07/24/24 00:08 Blood Pressure 136/92 H 07/24/24 00:08 Pulse Oximetry 96 07/24/24 00:08 Oxygen Delivery Method Room Air 07/24/24 00:08 MDM - Back Pain/Injury MDM Narrative Medical decision making narrative: Urinalysis is negative and lumbar films on my interpretation showed no acute findings. No change from lumbar series taken in November of this year. Some mild degenerative changes present. He was given IM Toradol here and prescribed Tylenol 3 and Robaxin and will follow-up with his family doctor. Treatment diagnosis and follow-up were discussed with the patient. Differential Diagnosis Differential diagnosis: Likely strain of lumbar region and other (UTI, muscle strain, degenerative disc disease) Lab Data Attestation: I reviewed the patient's lab results. Labs: Lab Results 07/24/24 Range/Units 00:22 Urine Color Lt. yellow (YELLOW) Urine Clarity Clear (CLEAR) Urine pH 6.0 (5.0-9.0) Ur Specific [place] <=1.005 A (1.005-1.025) Urine Protein Negative (NEG/TRACE) mg/dL Urine Glucose (UA) Negative (NEGATIVE) mg/dL Urine Ketones Negative (NEGATIVE) mg/dL Urine Occult Blood Negative (NEGATIVE) Urine Nitrite Negative (NEGATIVE) Urine Bilirubin Negative (NEGATIVE) Urine Urobilinogen 0.2 (0.2-1.0) EU/dL Ur Leukocyte Esterase Negative (NEGATIVE) Urine RBC None seen (0-2) #/HPF Urine WBC None seen (NONE SEEN) #/HPF Ur Squamous Epith Cells Rare (NONE/RARE) #/LPF Urine Crystals None seen (None Seen) #/HPF Urine Bacteria None seen (NONE SEEN) #/HPF Urine Casts None seen (NONE SEEN) #/LPF Urine Mucus None seen (NONE SEEN) Imaging Data Lumbar x-rays: My impression: No acute findings. Degenerative changes present. Discharge Plan Discharge Chief Complaint: Back Pain/Injury Clinical Impression: Low back pain Patient Disposition: Home, Self-Care Time of Disposition Decision: 01:03 Condition: Good Mode of Transportation: Private Vehicle Prescriptions / Home Meds: New acetaminophen-codeine 300-30 mg tablet 1 tab PO Q6H PRN (Reason: pain) Qty: 20 0RF methocarbamol 750 mg tablet 750 mg PO Q6H PRN (Reason: pain) Qty: 20 0RF No Action allopurinol 100 mg tablet 100 mg PO DAILY HYDROCHLOROTHIAZIDE 12.5 mg 12.5 mg PO DAILY Print Language: South African Instructions: Acute Low Back Pain (ED) Referrals: RODRIGUEZ KAPLAN [Primary Care Provider] - 1 week
[2024-07-24 00:30] LABS: Bilirubin Urine NEGATIVE (NEGATIVE); Blood Urine NEGATIVE (NEGATIVE); Clarity Urine CLEAR (CLEAR); Color Urine LT. YELLOW (YELLOW); Glucose Urine UA NEGATIVE (NEGATIVE); Ketones Urine NEGATIVE (NEGATIVE); Leukocyte Esterase Urine NEGATIVE (NEGATIVE); Nitrite Urine NEGATIVE (NEGATIVE); Protein Urine NEGATIVE (NEG/TRACE); Specific Gravity Urine <=1.005 (1.005-1.025); Urobilinogen Urine 0.2 EU/dL (0.2-1.0)
[2024-07-24 00:37] LABS: RBC Urine NONE SEEN #/HPF (0-2); WBC Urine NONE SEEN #/HPF (NONE SEEN)
[2024-07-24 00:38] LABS: Bacteria Urine NONE SEEN #/HPF (NONE SEEN); Cast Seen? NONE SEEN #/LPF (NONE SEEN); Crystals Seen? None Seen #/HPF (None Seen); Mucus Urine NONE SEEN (NONE SEEN); Squamous Epithelial Cell Urine RARE #/LPF (NONE/RARE)
[2024-07-24] MEDS: KETOROLAC TROMETHAMINE 60 MG/2 ML VIAL IM (00:39)
== END 2024-07-24 01:13 | disposition home or self-care (01) ==
PROVIDERS: Emergency Provider Emergency Medicine; PCP Nurse Practitioner Family
DX: M54.50 Low back pain, unspecified (principal)
CPT/HCPCS: 72100; 81001; 96372; 99284; J1885

== ENCOUNTER 2024-09-02 16:51 | Emergency (ER) | payer BC, SELFPAY ==
[2024-09-02 16:57] VITALS: BP 169/117; PULSE 88; TEMP 36.6; O2SAT 98; BMI 36.5
--- NOTE | 2024-09-02 17:06 | XR_ITS ---
[address] [address] Patient Name: ARIADNA MONTEIRO MRN: [id number] date: 1980 Sex: M Assigned Patient Location: ER Current Patient Location: ER Accession/Order Number: [id number] Exam Date: 09/02/2024 17:08 Report Date: 09/02/2024 17:29 At the request of: WHITNEY FLYNN Procedure: XR abdomen 1V Exam: Radiographs: XR abdomen 1V Reason for exam: Pain, possible constipation Comparison: None XR/XR abdomen 1V IMPRESSION: No gas-filled dilated loops of small bowel or colon. No gaseous dilation of the stomach. No fecal impaction. Remainder unremarkable. Electronically authenticated by: KAVEH ESCOBAR Date: 09/02/2024 17:29
--- NOTE | 2024-09-02 17:10 | ED.GENADUL1 ---
HPI HPI - General Adult General Chief complaint: Back Pain/Injury Stated complaint: L HIP & LEG PAIN, ABDOMINAL PAIN Time Seen by Provider: 09/02/24 16:55 Source: patient Mode of arrival: walk-in Limitations: no limitations History of Present Illness HPI narrative: 44-year-old male presents for 2 issues. First he states he has been having this pain in his left buttock area that goes into his hip and into his legs. 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 He sees his PCP for this issue and he is on an anti-inflammatory and a muscle relaxant. Second, he states he has been having both constipation and diarrhea. He gets cramps in his abdomen when he tries to have a bowel movement and that has been present for a few days. He had lumbar films here about 4 weeks ago that showed some mild degenerative changes. Related Data Home Medications ?Medication ?Instructions ?Recorded ?Confirmed HYDROCHLOROTHIAZIDE 12.5 mg PO DAILY 06/15/24 06/15/24 allopurinol 100 mg tablet 100 mg PO DAILY 06/15/24 06/15/24 Previous Rx's ?Medication ?Instructions ?Recorded methocarbamol 750 mg tablet 750 mg PO Q6H PRN pain #20 tabs 07/24/24 prednisone 10 mg tablet See Rx Instructions .Route 09/02/24 .COMPLEX #30 tabs Allergies Allergy/AdvReac Type Severity Reaction Status Date / Time Penicillins Allergy Severe Rash Verified 06/27/24 06:38 tramadol (From Ultram) Allergy Severe Rash Verified 06/27/24 06:38 Opioid HPI Opioid Management Most Recent Opioid Data: Last Pain Scale 8 07/24/24 00:12 07/24/24 Review of Systems ROS Narrative A ten point review of systems is negative except as noted above. [facility] Medical History (Updated 09/02/24 @ 17:38 by Adrián Bee MD) Low back strain ?S39.012A - Strain of muscle, fascia and tendon of lower back, initial encounter (ICD-10) Influenza ?J11.1 - Influenza due to unidentified influenza virus with other respiratory manifestations (ICD-10) Gastroenteritis ?K52.9 - Noninfective gastroenteritis and colitis, unspecified (ICD-10) Bronchiolitis ?J21.9 - Acute bronchiolitis, unspecified (ICD-10) Anxiety ?F41.9 - Anxiety disorder, unspecified (ICD-10) Finger sprain ?S63.619A - Unspecified sprain of unspecified finger, initial encounter (ICD-10) Arthritis ?M19.90 - Unspecified osteoarthritis, unspecified site (ICD-10) Bipolar 1 disorder, depressed ?F31.9 - Bipolar disorder, unspecified (ICD-10) Cluster headaches ?G44.009 - Cluster headache syndrome, unspecified, not intractable (ICD-10) Hypertension ?I10 - Essential (primary) hypertension (ICD-10) DDD (degenerative disc disease) Rectal pain ?K62.89 - Other specified diseases of anus and rectum (ICD-10) Rectal bleeding ?K62.5 - Hemorrhage of anus and rectum (ICD-10) Insomnia ?G47.00 - Insomnia, unspecified (ICD-10) Normal colonoscopy Kidney stones, calcium oxalate ?N20.0 - Calculus of kidney (ICD-10) Anal fissure ?K60.2 - Anal fissure, unspecified (ICD-10) Surgical History (Updated 06/18/24 @ 10:57 by Shagufta Lowe RN) Hx of colonoscopy ?Z98.890 - Other specified postprocedural states (ICD-10) Status post ORIF of fracture of ankle ?Z98.890 - Other specified postprocedural states (ICD-10) ?Z87.81 - Personal history of (healed) traumatic fracture (ICD-10) Family History Other Family history of COPD (chronic obstructive pulmonary disease) Family history of diabetes mellitus Family history of hypertension Heart disease Multiple kidney stones Social History (Updated 06/18/24 @ 10:55 by Shagufta Lowe, RN) Within the past year, how often did you have a drink containing alcohol: never Score interpretation: A score less than 4 is consistent with normal alcohol consumption. 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 General: The patient appears well and in no apparent distress. Patient is resting comfortably on cart. Skin: Warm, dry, no pallor noted. There is no rash noted. Head: Normocephalic, atraumatic Eye: Normal conjunctiva, no drainage Ears, Nose, Mouth, and Throat: oral mucosa is moist. Nares patent. Cardiovascular: Regular Rate and Rhythm Respiratory: Patient is in no distress, no accessory muscle use, lungs are clear to auscultation, no wheezing, rales or rhonchi Back: No bruise rash or focal area of tenderness to palpation GI: Soft and nontender Musculoskeletal: His left hip has full range of motion. No palpable tenderness Neurological: A&O, normal speech Psychiatric: Cooperative Constitutional Vital Signs, click to edit/add: Last Vital Signs Temp 97.9 F 09/02/24 16:57 Pulse 88 09/02/24 16:57 Resp 18 09/02/24 16:57 BP 169/117 H 09/02/24 16:57 Pulse Ox 98 09/02/24 16:57 O2 Del Method Room Air 09/02/24 16:57 Course Vital Signs Vital signs: Vital Signs Temperature 97.9 F 09/02/24 16:57 Pulse Rate 88 09/02/24 16:57 Respiratory Rate 18 09/02/24 16:57 Blood Pressure 169/117 H 09/02/24 16:57 Pulse Oximetry 98 09/02/24 16:57 Oxygen Delivery Method Room Air 09/02/24 16:57 Temperature 97.9 F 09/02/24 16:57 Pulse Rate 88 09/02/24 16:57 Respiratory Rate 18 09/02/24 16:57 Blood Pressure 169/117 H 09/02/24 16:57 Pulse Oximetry 98 09/02/24 16:57 Oxygen Delivery Method Room Air 09/02/24 16:57 Medical Decision Making MDM Narrative Medical decision making narrative: X-ray of the abdomen today is nonspecific. I reviewed his lumbar films from late July and mild degenerative changes were present. He was given IM Toradol and Solu-Medrol and will continue his muscle relaxer and anti-inflammatories that were prescribed by his PCP. In terms of the diarrhea he most likely has viral gastroenteritis. Treatment diagnosis and follow-up were discussed with the patient. Differential Diagnosis Differential Diagnosis: Sciatica, diarrhea Imaging Data Abdominal x-ray: Radiologist's impression: ITS Impressions Abdomen X-Ray 09/02/24 17:06 IMPRESSION: No gas-filled dilated loops of small bowel or colon. No gaseous dilation of the stomach. No fecal impaction. Remainder unremarkable. Electronically authenticated by: KAVEH ESCOBAR Date: 09/02/2024 17:29 Discharge Plan Discharge Chief Complaint: Back Pain/Injury Clinical Impression: Diarrhea, Sciatica Patient Disposition: Home, Self-Care Time of Disposition Decision: 17:38 Condition: Good Mode of Transportation: Private Vehicle Prescriptions / Home Meds: New prednisone 10 mg tablet See Rx Instructions .ROUTE .COMPLEX Qty: 30 0RF Rx Instructions: 4 by mouth daily for three days then 3 by mouth daily for three days then 2 by mouth daily for three days then 1 by mouth daily for three days No Action allopurinol 100 mg tablet 100 mg PO DAILY HYDROCHLOROTHIAZIDE 12.5 mg 12.5 mg PO DAILY methocarbamol 750 mg tablet 750 mg PO Q6H PRN (Reason: pain) Qty: 20 0RF Print Language: Amharic Instructions: Sciatica (ED), Acute Diarrhea (ED) Referrals: RODRIGUEZ KAPLAN [Primary Care Provider] - 1 week
--- OUTSIDE RECORDS SUMMARY | 2024-09-02 17:15 | XMS_ITS | CCD ---
Author Organization [facility] Care Team Providers Care Medical Technologist Prn Name Role Phone Nilo Mendez Unavailable Unavailable FRUTH, JEAN Primary Care Unavailable KENYATTA KEN Attending Unavailable CHIRRI, ARTEMIO Consulting Unavailable Mikala, Clari A Primary Care Provider Mikala, Clari A Primary Care Provider Mikala, Clari A Primary Care Provider MIKALA, CLARI A Primary Care Unavailable SHAHRZAD [...] Care Unavailable EUSEBIO, ISABELLA Consulting Unavailable EUSEBIO, ISABELLA Admitting Unavailable EUSEBIO, ISABELLA Attending Unavailable EUSEBIO, ISABELLA Primary Care Unavailable Ruiz Lakshmi PARISH Attending Unavailable MIKALA, CLARI A Primary Care Physician ISABELLA KAPLAN Referring Unavailable David DIAMOND Attending [...] (13 sources) traMADol Drug Allergy 6 Rash [facility] Penicillins (antibiotic) (13 sources) Penicillins Drug Allergy 1 Rash [facility] (7 sources) Penicillins; Translations: [penicillins] Propensity to adverse reactions to drug 1 Rash, Eruption of skin (disorder) [place] (9 sources) traMADol; Translations: [tramadol] Drug Allergy 6 Rash, Eruption of skin (disorder) [place] (1 source) Penicillin Drug Allergy 8 [facility] Repository (2 sources) traMADol; Translations: [Ultram] Drug Allergy [facility] Repository (3 sources) Naproxen Drug Allergy 3 Rash [facility] (3 sources) Penicillins Drug Allergy 3 Hives [facility] Healthcare Medications Current Medications Medication Drug [...] BID, # 20 cap(s), Refills(s) 0, Pharmacy: [facility]22, 160, cm, 05/04/21 15:08:00 [...] you for choosing us for your care. [facility] Ambulatory Visit Summary Ambulatory Visit Summary JUNIOR [...] for choosing us for your care. Normal [facility] Physician Referralon 023 Physician Referral [phone] 02 [id number] TIFF Normal [facility] MRI LSPINE WO CONon 05-21-20 22 [...] MICHAEL RAE Date: 2022-05-21 18:38 Normal [facility] XR FOREIGN BODY EYEon 2021 XR FOREIGN BODY EYE EXAMINATION: XR FOREIGN BODY EYE HISTORY: Foreign body in eye COMPARISON: No relevant comparison available. FINDINGS: ORBITS: Negative for a metallic foreign body. OTHER: Negative. IMPRESSION: 1. No metallic foreign body within the orbits. Electronically authenticated by: APRYL RIOS Date: 2022-05-21 10:36 Normal [facility] XR LSPINE MIN 4 VIEWSon 02-01 [...] APRYL RIOS Date: 2022-02-22 11:06 Normal [facility] CBC with Diffon 09-23-2021 Abs. Basophil 0.02 k/uL Normal 0.0-0.2 [facility] Comment on above: Performed By: #### C ELOY LOPEZ, IPF ####[address] , [place] [id number] lab Director: Michael Meyer MD Abs.Imm.Granulocyte 0.02 k/uL Normal 0.00-0.30 [facility] Comment on above: Performed By: #### C ELOY LOPEZ, IPF ####[address] [place] [address] lab Director: Michael Meyer MD Abs.Neutrophil (Seg) 1.28 k/uL Low 1.50-8.10 [facility] Comment on above: Performed By: #### C ELOY LOPEZ, IPF ####[address] , [place] [phone] Director: Michael Meyer MD Basophils/100 WBC (Bld) 1 % Normal 0-2 [facility] Comment on above: Performed By: #### C DP, CP, IPF ####[address] [place] [address] Lab Director: Michael Meyer MD Eosinophils (Bld) [#/Vol] 0.00 10*3/uL Normal 0.00-0.44 [facility] Comment on above: Performed By: #### C DP, CP, IPF ####[address] , [facility]83[facility])[phone] Director: Michael Meyer MD Eosinophils/100 WBC (Bld) 0 % Low 1-4 [facility] Comment on above: Performed By: #### C JESSICA CP, IPF ####[address] , [facility]83[facility])[phone] Director: Michael Meyer MD Immature granulocytes/100 WBC (Bld) 1 % High 0 [facility] Comment on above: Performed By: #### C JESSICA, CP, IPF ####[address] , [facility]83419)[phone] Director: Michael Meyer MD Lymphocytes (Bld) [#/Vol] 0.73 10*3/uL Low 1.10-3.70 [facility] Comment on above: Performed By: #### C DP, CP, IPF ####[address] , [place] [phone] Director: Michael Meyer MD Lymphocytes/100 WBC (Bld) 33 % Normal 24-43 [facility] Comment on above: Performed By: #### C DP, CP, IPF ####[address] , [place] [phone] Lab Director: Michael Meyer MD Monocytes (Bld) [#/Vol] 0.15 10*3/uL Normal 0.10-1.20 [facility] Comment on above: Performed By: #### C DP CP, IPF ####[address] [place] [address] Lab Director: Michael Meyer MD Monocytes/100 WBC (Bld) 7 % Normal 3-12 [facility] Comment on above: Performed By: #### C DP, CP, IPF ####[address] , [place] [phone] Director: Michael Meyer MD Morphology Fernando (Bld) [Interp] Platelet scan shows Normal Platelets Normal [facility] Comment on above: Performed By: #### C JESSICA CP, IPF ####[address] , [place] [phone] Director: Michael Meyer MD Neutrophil (Seg) 58 % Normal 36-65 [facility] Comment on above: Performed By: #### C JESSICA CP, IPF ####[address] , [facility]83[facility])[phone] Director: Michael Meyer MD Erythrocyte distribution width (RBC) [Ratio] 11.2 % Low 11.8-14.4 [facility] Comment on above: Performed By: #### C JESSICA CP, IPF ####[address] , [facility]83[facility])[phone] Director: Michael Meyer MD Hematocrit (Bld) [Volume fraction] 46.3 % Normal 40.7-50.3 [facility] Comment on above: Performed By: #### C DP, CP, IPF ####[address] [place] [address] Lab Director: Michael Meyer MD Hemoglobin (Bld) [Mass/Vol] 15.6 g/dL Normal 13.0-17.0 [facility] Comment on above: Performed By: #### C DP, CP, IPF ####[address] , [facility]83 [facility] Director: Michael Meyer MD MCH (RBC) [Entitic mass] 28.5 pg Normal 25.2-33.5 [facility] Comment on above: Performed By: #### C DP, CP, IPF ####[address] , [facility]49([facility])[phone] Director: Michael Meyer MD MCHC (RBC) [Mass/Vol] 33.7 g/dL Normal 28.4-34.8 [facility] Comment on above: Performed By: #### C DP, CP, IPF ####[address] , [place] [address])[phone] Director: Michael Meyer MD MCV (RBC) [Entitic vol] 84.6 fL Normal 82.6-102.9 [facility] Comment on above: Performed By: #### C DP, CP, IPF ####[address] , [facility]83 [facility] Director: Michael Meyer MD NRBC Automated 0.0 per 100 WBC Normal 0.0 [facility] Comment on above: Performed By: #### C DP, CP, IPF ####[address] , [place] [address])[phone] Director: Michael Meyer MD Platelet Count See Reflexed IPF Result Normal 138-453 [facility] Comment on above: Performed By: #### C DP, CP, IPF ####[address] , [facility]83 lab Director: Michael Meyer MD RBC (Bld) [#/Vol] 5.47 10*6/uL Normal 4.21-5.77 [facility] Comment on above: Performed By: #### C DP, CP, IPF ####[address] [place] [address] Lab Director: Michael Meyer MD WBC (Bld) [#/Vol] 2.2 10*3/uL Low 3.5-11.3 [facility] Comment on above: Performed By: #### C DP, CP, IPF ####[address] [place] [address] Lab Director: Michael Meyer MD Auto Diff Performed NOT REPORTED Normal [facility] Comment on above: Performed By: #### C DP, CP, IPF ####[address] [place] [address] Lab Director: Michael Meyer MD MPV NOT REPORTED Normal 8.1-13.5 [facility] Comment on above: Performed By: #### C DP, CP, IPF ####[address] [place] [address] Lab Director: Michael Meyer MD Platelet Comment NOT REPORTED Normal [facility] Comment on above: Performed By: #### C DP, CP, IPF ####[address] [place] [address] Lab Director: Michael Meyer MD RBC morphology finding Nom (Bld) NOT REPORTED Normal [facility] Comment on above: Performed By: #### C DP, CP, IPF ####[address] [place] [address] Lab Director: Michael Meyer MD WBC Morphology NOT REPORTED Normal [facility] Comment on above: Performed By: #### C DP, CP, IPF ####[address] [place] [address] Lab Director: Michael Meyer MD Comp Metabolic Profon 2020 (cont.) Normal [facility] Comment on above: Result Comment: Aver age GFR for 40-49 years old: 99 mL/min/1.73sq m Chronic Kidney Disease: <60 mL/min/1.73sq m Kidney failure: <15 mL/min/1.73sq m eGFR calculated using average adult body mass. Additional eGFR calculator available at: http://www.Sendmebox/multiple_crcl_2012.htm Performed By: #### C DP, CP, IPF ####[address] , [place] [phone])[phone] Director: Michael Meyer MD Albumin [Mass/Vol] 4.1 g/dL Normal 3.5-5.2 [facility] Comment on above: Performed By: #### C DP, CP, IPF ####[address] [place] [address] Lab Director: Michael Meyer MD Albumin/Glob Ratio 1.1 Normal 1.0-2.5 [facility] Comment on above: Performed By: #### C DP, CP, IPF ####[address] [place] [address] Lab Director: Michael Meyer MD Alkaline Phos 87 U/L Normal 40-129 [facility] Comment on above: Performed By: #### C DP, CP, IPF ####[address] [place] [address] Lab Director: Michael Meyer MD ALT [Catalytic activity/Vol] 65 U/L High 5-41 [facility] Comment on above: Performed By: #### C DP, CP, IPF ####[address] [place] [address] Lab Director: Michael Meyer MD Anion gap [Moles/Vol] 13 mmol/L Normal 9-17 [facility] Comment on above: Performed By: #### C DP, CP, IPF ####[address] [place] [address] Lab Director: Michael Meyer MD AST [Catalytic activity/Vol] 68 U/L High <40 [facility] Comment on above: Performed By: #### C DP, CP, IPF ####[facility] [place] , [place] [address]8883 Lab Director: Michael Meyer MD Bilirubin [Mass/Vol] 0.52 mg/dL Normal 0.3-1.2 [facility] Comment on above: Performed By: #### C DP, CP, IPF ####[address] , [place] 1224283 Lab Director: Michael Meyer MD BUN/CRE Ratio 8 Low 9-20 [facility] Comment on above: Performed By: #### C DP, CP, IPF ####[address] , [place] 2443483 Lab Director: Michael Meyer MD Calcium [Mass/Vol] 8.8 mg/dL Normal 8.6-10.4 [facility] Comment on above: Performed By: #### C DP, CP, IPF ####[address] , [place] 3270683 Lab Director: Michael Meyer MD Chloride [Moles/Vol] 100 mmol/L Normal 98-107 [facility] Comment on above: Performed By: #### C DP, CP, IPF ####[address] , [place] 1463683 Lab Director: Michael Meyer MD CO2 [Moles/Vol] 23 mmol/L Normal 20-31 [facility] Comment on above: Performed By: #### C DP, CP, IPF ####[address] , [place] 7108083 Lab Director: Michael Meyer MD Creatinine [Mass/Vol] 1.55 mg/dL High 0.70-1.20 [facility] Comment on above: Performed By: #### C DP, CP, IPF ####[address] [place] [address] Lab Director: Michael Meyer MD GFR, Amer >60 Normal >60 [facility] Comment on above: Performed By: #### C DP, CP, IPF ####[address] [place] [address] Lab Director: Michael Meyer MD GFR,non Amer 50 mL/min Low >60 [facility] Comment on above: Performed By: #### C DP, CP, IPF ####[address] [place] [address] lab Director: Michael Meyer MD Glucose [Mass/Vol] 94 mg/dL Normal 70-99 [facility] Comment on above: Performed By: #### C DP, CP, IPF ####[address] [place] [address] Lab Director: Michael Meyer MD Potassium [Moles/Vol] 3.9 mmol/L Normal 3.7-5.3 [facility] Comment on above: Performed By: #### C DP, CP, IPF ####[address] [place] [address] Lab Director: Michael Meyer MD Protein [Mass/Vol] 7.9 g/dL Normal 6.4-8.3 [facility] Comment on above: Performed By: #### C DP, CP, IPF ####[address] [place] [address] Lab Director: Michael eMyer MD Sodium [Moles/Vol] 136 mmol/L Normal 135-144 [facility] Comment on above: Performed By: #### C DP, CP, IPF ####[address] , [place] 1791183 [facility] Director: Michael Meyer MD Staging: Normal [facility] Comment on above: Result Comment: Stag e 1: Some kidney damage normal GFR Stage 2: Mild kidney damage GFR 60-89 Stage 3: Moderate kidney damage GFR 30-59 Stage 4: Severe kidney damage GFR 15-29 Stage 5: Severe kidney damage GFR <15 ESRD - chronic treatment by dialysis or transplant Performed By: #### C ELOY LOPEZ, IPF ####[address] , [facility]83 [facility] Director: Michael Meyer MD Urea nitrogen [Mass/Vol] 13 mg/dL Normal 6-20 [facility] Comment on above: Performed By: #### C ELOY LOPEZ, IPF ####[address] , [facility]83 [facility] Director: Michael Meyer MD Lactic Acidon 09-23-2021 Lactate [Moles/Vol] 0.9 mmol/L Normal 0.5-2.2 [facility] Comment on above: Performed By: #### L ACTIC ####[address] , [facility]83 [facility] Director: Michael Meyer MD Lactic Acid,Whole Bl NOT REPORTED Normal 0.7-2.1 [facility] Comment on above: Performed By: #### L ACTIC ####[address] , [facility]83 [facility] Director: Michael Meyer MD PLT, Immature Fract.on 09-23 Platelet, Fluoresc. 42 k/uL Low 138-453 [facility] Comment on above: Performed By: #### C ELOY LOPEZ, IPF #### [address] [place] [id number] School Bus Driver/Custodian: Michael Meyer MD PLT, Immature Fract. 1.2 % Normal 1.1-10.3 [facility] Comment on above: Performed By: #### C ELOY LOPEZ, IPF #### [address] [place], [place] [address]83 School Bus Driver/Custodian: Michael Meyer MD XR CHEST (SINGLE VIEW [...] by: Will Calderón 09/22/21 Final result Normal [facility] Resp Viral Panelon Adenovirus Not detected Normal [facility] Comment on above: Performed By: #### R SWAGER OPERATOR ####[place] [address] [place] [address] Lab Director: Juan R Tang[address] [place] [address] Lab Director: MD Guille Oviedodet.parapertussis Not detected Normal [facility] Comment on above: Performed By: #### R SWAGER OPERATOR ####[address] [address] Lab Director: Juan R Tang[address] 4973983 Lab Director: Michael Meyer MD Bordetella pertussis Not detected Normal [facility] Comment on above: Performed By: #### R SWAGER OPERATOR ####[place] [address] [place] [address] Lab Director: Juan R Tang[address] 0569983 Lab Director: Michael Meyer MD Chlamyd.pneumoniae Not detected Normal [facility] Comment on above: Performed By: #### R SWAGER OPERATOR ####[facility] [address] [place] [address] Lab Director: Juan R Tang[address] [place] [address] Lab Director: Michael Meyer MD Coronavirus 229E Not detected Normal [facility] Comment on above: Performed By: #### R SWAGER OPERATOR ####[facility] [address] [place] [address] Lab Director: Juan R [facility] Center[facility]ine[address] [place] [phone] Director: Michael Meyer MD Coronavirus HKU1 Not detected [facility] Comment on above: Performed By: #### R SWAGER OPERATOR ####[facility] [address] [place] [address] Lab Director: Juan R Tang[address] [place] [address] Lab Director: Michael Meyer MD Coronavirus NL63 Not detected [facility] Comment on above: Performed By: #### R SWAGER OPERATOR ####[address] [address] Lab Director: Juan R Tang[address] [place] [address] Lab Director: Michael Meyer MD Coronavirus OC43 Not detected [facility] Comment on above: Performed By: #### R SWAGER OPERATOR ####[facility] [address] [place] [address] Lab Director: Juan R Tang[address] [place] [address] Lab Director: Michael Meyer MD Human Metapneumo Not detected Normal [facility] Comment on above: Performed By: #### R SWAGER OPERATOR ####[facility] [address] [place] [address] Lab Director: Juan R [facility] Center[facility] [place] [address] Lab Director: Michael Meyer MD Influenza A Not detected Normal [facility] Comment on above: Performed By: #### R SWAGER OPERATOR ####[facility] [address] [place] [address] Lab Director: Juan R [facility] Centerjustine[address] [place] [address] Lab Director: Michael Meyer MD Influenza B Not detected [facility] Comment on above: Performed By: #### R SWAGER OPERATOR ####[facility] [address] [place] [address] Lab Director: Juan R Tang[address] [place] [address] Lab Director: Michael Meyer MD Mycoplas.pneumoniae Not detected Normal [facility] Comment on above: Result Comment: Perf ormed by multiplexed nucleic acid assay. Performed By: #### R SWAGER OPERATOR ####[facility] [address] [place] [address] Lab Director: Juan R Tang[address] [place] [address] Lab Director: Michael Meyer MD Parainfluenza 1 Not detected Normal [facility] Comment on above: Performed By: #### R SWAGER OPERATOR ####[facility] [address] [place] [address] Lab Director: Juan R Tang[address] [place] [address] Lab Director: Michael Meyer MD Parainfluenza 2 Not detected Normal [facility] Comment on above: Performed By: #### R SWAGER OPERATOR ####[facility] [address] [place] [address] Lab Director: Juan R Tang[address] [place] [address] Lab Director: Michael Meyer MD Parainfluenza 3 Not detected Normal [facility] Comment on above: Performed By: #### R SWAGER OPERATOR ####[facility] [address] [place], [place] [phone] Director: Juan R [facility] Centerjustine[address] , [place] 8425283 Lab Director: Michael Meyer MD Parainfluenza 4 Not detected Normal [facility] Comment on above: Performed By: #### R SWAGER OPERATOR ####[facility] [address] [place], [place] [phone])[phone] Director: Juan R Tang[address] [place] [address] Lab Director: Michael Meyer MD Resp Syncytial Virus Not detected Normal [facility] Comment on above: Performed By: #### R SWAGER OPERATOR ####[facility] [address] [place], [place] [phone])[phone] Director: Juan R Tang[address] [place] [address] Lab Director: Michael Meyer MD Rhino/Enterovirus Not detected Normal [facility] Comment on above: Performed By: #### R SWAGER OPERATOR ####[facility] [address] [place], [place] [phone])[phone] Director: Juan R Tang[address] [place] [address] Lab Director: Michael Meyer MD SARS-CoV-2 (COVID-19) RNA LYNDON+probe Ql (Unsp spec) Detected Abnormal [facility] Comment on above: Result Comment: Resu lts reported to the appropriate Health Department Performed By: #### R SWAGER OPERATOR ####[facility] [address] [place], [place] [phone] Director: Juan R Tang[address] [place] [address] Lab Director: Michael Meyer MD Resp Viral Panelon 1 Source: .NASOPHARYNGEAL SWAB Normal [facility] Comment on above: Performed By: #### R SWAGER OPERATOR ####[facility] [address] [place], [place] [phone])[phone] Director: Juan R Tang[address] [place] [address] Lab Director: Michael Meyer MD Influenza A H1 NOT REPORTED Normal [facility] Comment on above: Performed By: #### R SWAGER OPERATOR ####[facility] [address] [place], [place] [phone])[phone] Director: Juan R Tang[address] [place] [address] Lab Director: Michael Meyer MD Influenza A H1-2009 NOT REPORTED Normal [facility] Comment on above: Performed By: #### R SWAGER OPERATOR ####[facility] [address] [place], [place] [phone])[phone] Director: Juan R Tang[address] [place] [address] Lab Director: Michael Meyer MD Influenza A H3 NOT REPORTED Normal [facility] Comment on above: Performed By: #### R SWAGER OPERATOR ####[facility] [address] [place] [address] Lab Director: Juan R Tang, [facility] [place] [address] , [place] 2952083 Lab Director: Michael Meyer MD No Panel Informationon 09-13 No acute findings. [facility] EXAMINATION: THREE XRAY VIEWS OF THE RIGHT ANKLE; THREE XRAY VIEWS OF THE LEFT FOOT 09/13/2021 9:16 am COMPARISON: None. HISTORY: ORDERING SYSTEM PROVIDED HISTORY: Pain TECHNOLOGIST PROVIDED HISTORY: Pain FINDINGS: No acute fracture demonstrated. 2 threaded screws noted medial malleolus from repair prior injury. Alignment anatomic. Small plantar and dorsal calcaneal spurs present. Gjdv-gh-eycmwkaq degenerative change primarily midfoot. Overall alignment anatomic. Soft tissues unremarkable. [facility] Jeronimo Art DO - 09/13/2021 EXAMINATION: THREE XRAY VIEWS OF THE RIGHT ANKLE; THREE XRAY VIEWS OF THE LEFT FOOT 09/13/2021 9:16 am COMPARISON: None. HISTORY: ORDERING SYSTEM PROVIDED HISTORY: Pain TECHNOLOGIST PROVIDED HISTORY: Pain FINDINGS: No acute fracture demonstrated. 2 threaded screws noted medial malleolus from repair prior injury. Alignment anatomic. Small plantar and dorsal calcaneal spurs present. Nhoj-df-iwpwggnt degenerative change primarily midfoot. Overall alignment anatomic. Soft tissues unremarkable. IMPRESSION: No acute findings. [facility] [employer] Work Phone: [facility] [employer] Work Phone: No acute findings. [facility] EXAMINATION: THREE XRAY VIEWS OF THE RIGHT FOOT; THREE XRAY VIEWS OF THE LEFT ANKLE 09/13/2021 9:14 am COMPARISON: None. HISTORY: ORDERING SYSTEM PROVIDED HISTORY: pain TECHNOLOGIST PROVIDED HISTORY: pain FINDINGS: No acute fracture demonstrated. Alignment is anatomic. 2 threaded screws noted within the medial malleolus. Clpr-bb-uahtoobm degenerative change primarily midfoot. Small plantar and dorsal calcaneal spurs present. Soft tissues unremarkable. [facility] Jeronimo Art DO - 09/13/2021 EXAMINATION: THREE XRAY VIEWS OF THE RIGHT FOOT; THREE XRAY VIEWS OF THE LEFT ANKLE 09/13/2021 9:14 am COMPARISON: None. HISTORY: ORDERING SYSTEM PROVIDED HISTORY: pain TECHNOLOGIST PROVIDED HISTORY: pain FINDINGS: No acute fracture demonstrated. Alignment is anatomic. 2 threaded screws noted within the medial malleolus. Gvqz-rd-zllufbgk degenerative change primarily midfoot. Small plantar and dorsal calcaneal spurs present. Soft tissues unremarkable. IMPRESSION: No acute findings. [employer] Phone: No Panel InformationOrdered By: Jeronimo Art on 09-13-2021 [employer] Phone: XR ANKLE LEFT (MIN 3 VIEWS)o n 09-13-2021 XR ANKLE LEFT (MIN 3 VIEWS) EXAMINATION: THREE XRAY VIEWS OF THE RIGHT FOOT; THREE XRAY VIEWS OF THE LEFT ANKLE 09/13/2021 9:14 am COMPARISON: None. HISTORY: ORDERING SYSTEM PROVIDED HISTORY: pain TECHNOLOGIST PROVIDED HISTORY: pain FINDINGS: No acute fracture demonstrated. Alignment is anatomic. 2 threaded screws noted within the medial malleolus. Zeuz-bd-fzylvlqw degenerative change primarily midfoot. Small plantar and dorsal calcaneal spurs present. Soft tissues unremarkable. IMPRESSION: No acute findings. Interpreted by: Jeronimo Art DO Signed by: Jeronimo Art DO 09/13/21 Final result Normal [facility] Radiology Study observation (narrative) [employer] Phone: XR ANKLE RIGHT (MIN 3 VIEWS) [...] Small plantar and dorsal calcaneal spurs present. Xwau-py-penoofqp degenerative change primarily midfoot. Overall alignment anatomic. Soft tissues unremarkable. IMPRESSION: No acute findings. Interpreted by: Jeronimo Art DO Signed by: Jeronimo Art DO 09/13/21 Final result Normal [facility] Radiology Study observation (narrative) [employer] Phone: XR FOOT LEFT (MIN 3 VIEWS)on [...] Small plantar and dorsal calcaneal spurs present. Ppuo-us-qoqjknzh degenerative change primarily midfoot. Overall alignment anatomic. Soft tissues unremarkable. IMPRESSION: No acute findings. Interpreted by: Jeronimo Art DO Signed by: Jeronimo Art DO 09/13/21 Final result Normal [facility] Radiology Study observation (narrative) [employer] Phone: XR FOOT RIGHT (MIN 3 VIEWS)o n 09-13-2021 XR FOOT RIGHT (MIN 3 VIEWS) EXAMINATION: THREE XRAY VIEWS OF THE RIGHT FOOT; THREE XRAY VIEWS OF THE LEFT ANKLE 09/13/2021 9:14 am COMPARISON: None. HISTORY: ORDERING SYSTEM PROVIDED HISTORY: pain TECHNOLOGIST PROVIDED HISTORY: pain FINDINGS: No acute fracture demonstrated. Alignment is anatomic. 2 threaded screws noted within the medial malleolus. Miss-dx-ttnjtoai degenerative change primarily midfoot. Small plantar and dorsal calcaneal spurs present. Soft tissues unremarkable. IMPRESSION: No acute findings. Interpreted by: Jeronimo Art DO Signed by: Jeronimo Art DO 09/13/21 Final result Normal [facility] Radiology Study observation (narrative) [employer] Phone: XR ABDOMEN (KUB) (SINGLE AP VIEW)on [...] Kerri Scott MD 05/08/21 Final result Normal [facility] XR ABDOMEN (KUB) (SINGLE AP VIEW)Ordered By: Quincy Interiano on 05-08-2021 Nonobstructive bowel gas pattern. No radiodensities diagnostic of nephroliths. [employer] Phone: EXAMINATION: ONE SUPINE XRAY VIEW(S) OF THE ABDOMEN 05/08/2021 10:35 am COMPARISON: 01 May 2021 HISTORY: ORDERING SYSTEM PROVIDED HISTORY: Microscopic hematuria FINDINGS: The bowel gas pattern is non obstructive. No organomegaly, free air or abnormal calcifications are noted. Mild levo scoliotic curvature is present. [employer] Phone: Luther, pn Incoming Radiant Results From [employer] - 05/08/2021 2:06 PM EDT EXAMINATION: ONE SUPINE XRAY VIEW(S) OF THE ABDOMEN 05/08/2021 10:35 am COMPARISON: 01 May 2021 HISTORY: ORDERING SYSTEM PROVIDED HISTORY: Microscopic hematuria FINDINGS: The bowel gas pattern is non obstructive. No organomegaly, free air or abnormal calcifications are noted. Mild levo scoliotic curvature is present. IMPRESSION: Nonobstructive bowel gas pattern. No radiodensities diagnostic of nephroliths. [employer] Phone: [employer] Phone: No Panel InformationOrdered By: Fatuma Sanchez on 05-01-2021 1. No acute osseous abnormality of the right ankle. Posttraumatic and postsurgical changes as above. Mild tibiotalar joint osteoarthritis. 2. Acute osseous abnormality of the right foot. Chronic appearing well-defined erosion or subchondral cyst at the base of the 3rd metatarsal without associated joint space loss. This is a nonspecific finding. [employer] Phone: EXAMINATION: THREE XRAY VIEWS OF THE [...] base of the 3rd metatarsal is nonspecific. [employer] Phone: Luther, pn Incoming Radiant Results From [employer] - 05/01/2021 5:46 PM EDT EXAMINATION: THREE [...] space loss. This is a nonspecific finding. [employer] Phone: [employer] Phone: Unremarkable left wrist/left hand series. There are no plain radiographic findings to suggest an active synovial process of bone as rheumatoid arthritis [employer] Phone: EXAMINATION: 2 XRAY VIEWS OF THE LEFT WRIST; TWO XRAY VIEWS OF THE LEFT HAND 05/01/2021 11:10 am COMPARISON: None. HISTORY: ORDERING SYSTEM PROVIDED HISTORY: Seropositive rheumatoid arthritis (HCC) FINDINGS: The bones and joints are unremarkable without definite fracture, dislocation, significant degenerative/erosive change, radiopaque foreign body, abnormal soft tissue calcification or bony destructive lesion [employer] Phone: Luther, [facility] Incoming Radiant Results From [employer] - 05/01/2021 11:26 AM EDT EXAMINATION: 2 XRAY VIEWS OF THE LEFT WRIST; TWO XRAY VIEWS OF THE LEFT HAND 05/01/2021 11:10 am COMPARISON: None. HISTORY: ORDERING SYSTEM PROVIDED HISTORY: Seropositive rheumatoid arthritis ([facility]) FINDINGS: The bones and joints are unremarkable without definite fracture, dislocation, significant degenerative/erosive change, radiopaque foreign body, abnormal soft tissue calcification or bony destructive lesion IMPRESSION: Unremarkable left wrist/left hand series. There are no plain radiographic findings to suggest an active synovial process of bone as rheumatoid arthritis [employer] Phone: [employer] Phone: XR ABDOMEN (KUB) (SINGLE AP VIEW)on [...] Linda Albarran MD 05/01/21 Final result Normal [facility] XR ABDOMEN (KUB) (SINGLE AP VIEW)Ordered By: Quincy Interiano on 05-01-2021 No significant radiographic abnormality in the abdomen. [employer] Phone: EXAMINATION: ONE SUPINE XRAY VIEW(S) OF THE ABDOMEN 05/01/2021 10:51 am COMPARISON: None. HISTORY: ORDERING SYSTEM PROVIDED HISTORY: Pain FINDINGS: Nonobstructive bowel gas pattern. No abnormal calcifications overlying the gallbladder urinary tract. No mass effect. Osseous structures grossly intact. [employer] Phone: Luther, [facility] Incoming Radiant Results From [employer] - 05/01/2021 11:21 AM EDT EXAMINATION: ONE SUPINE XRAY VIEW(S) OF THE ABDOMEN 05/01/2021 10:51 am COMPARISON: None. HISTORY: ORDERING SYSTEM PROVIDED HISTORY: Pain FINDINGS: Nonobstructive bowel gas pattern. No abnormal calcifications overlying the gallbladder urinary tract. No mass effect. Osseous structures grossly intact. IMPRESSION: No significant radiographic abnormality in the abdomen. [employer] Phone: [employer] Phone: XR ANKLE LEFT (MIN 3 VIEWS)o [...] Clarissa Gomez MD 05/01/21 Final result Normal [facility] XR ANKLE LEFT (MIN 3 VIEWS)O rdered By: Fatuma Sanchez on 05-01-2021 Moderate calcaneal spurring [employer] Phone: EXAMINATION: THREE XRAY VIEWS OF THE LEFT ANKLE 05/01/2021 11:12 am COMPARISON: None. HISTORY: ORDERING SYSTEM PROVIDED HISTORY: Seropositive rheumatoid arthritis (HCC) FINDINGS: There is moderate spurring of the superior aspect of the os calcis. The bones and joints are otherwise unremarkable without definite effusion, acute fracture, dislocation radiopaque foreign body or bony destructive lesion [employer] Phone: Luther, [facility] Incoming Radiant Results From [employer] - 05/01/2021 11:21 AM EDT EXAMINATION: THREE [...] bony destructive lesion IMPRESSION: Moderate calcaneal spurring [employer] Work Phone: [facility] [employer] Work Phone: XR ANKLE RIGHT (MIN 3 [...] Michael Caceres MD 05/01/21 Final result Normal [facility] XR FOOT LEFT (2 VIEWS)on XR FOOT [...] Clarissa Gomez MD 05/01/21 Final result Normal [facility] XR FOOT LEFT (2 VIEWS)Ordere d By: Fatuma Sanchez on 05-01-2021 Mild degenerative changes There are no plain radiographic findings to suggest an active synovial process of bone as rheumatoid arthritis [employer] Phone: EXAMINATION: TWO XRA Y VIEWS OF [...] radiopaque foreign body or bony destructive lesion [employer] Phone: Luther, [facility] Incoming Radiant Results From [employer] - 05/01/2021 11:29 AM EDT EXAMINATION: TWO [...] synovial process of bone as rheumatoid arthritis [employer] Phone: [employer] Phone: XR FOOT RIGHT (2 VIEWS)on XR [...] Michael Caceres MD 05/01/21 Final result Normal [facility] XR HAND LEFT (2 VIEWS)on XR HAND [...] Clarissa Gomez MD 05/01/21 Final result Normal [facility] XR HAND RIGHT (2 VIEWS)on XR HAND [...] Clarissa Gomez MD 05/01/21 Final result Normal [facility] XR HAND RIGHT (2 VIEWS)Order ed By: Fatuma Sanchez on 05-01-2021 Unremarkable two-vie w right hand series. There are no definite plain radiographic findings to suggest an active synovial process of bone as rheumatoid arthritis [employer] Phone: EXAMINATION: TWO XRA Y VIEWS OF THE RIGHT HAND 05/01/2021 11:12 am COMPARISON: None. HISTORY: ORDERING SYSTEM PROVIDED HISTORY: Seropositive rheumatoid arthritis (HCC) FINDINGS: The bones and joints are unremarkable without definite fracture, dislocation, significant degenerative/erosive change, radiopaque foreign body, abnormal soft tissue calcification or bony destructive lesion [employer] Phone: Luther, [facility] Incoming Radiant Results From [employer] - 05/01/2021 11:24 AM EDT EXAMINATION: TWO [...] synovial process of bone as rheumatoid arthritis [employer] Phone: [employer] Phone: XR WRIST LEFT (2 VIEWS)on XR [...] Clarissa Gomez MD 05/01/21 Final result Normal [facility] XR WRIST RIGHT (2 VIEWS)on 0 05-01-2021 [...] Clarissa Gomez MD 05/01/21 Final result Normal [facility] XR WRIST RIGHT (2 VIEWS)Orde red By: Fatuma Sanchez on 05-01-2021 Unremarkable two-vie w right wrist series [employer] Phone: EXAMINATION: 2 XRAY VIEWS OF THE RIGHT WRIST; 05/01/2021 11:11 am COMPARISON: None. HISTORY: ORDERING SYSTEM PROVIDED HISTORY: Seropositive rheumatoid arthritis (HCC) FINDINGS: The bones and joints are unremarkable without definite fracture, dislocation, significant degenerative/erosive change, radiopaque foreign body or bony destructive lesion [employer] Phone: Luther, [employer] Incoming Radiant Results From [employer] - 05/01/2021 11:23 AM EDT EXAMINATION: 2 XRAY VIEWS OF THE RIGHT WRIST; 05/01/2021 11:11 am COMPARISON: None. HISTORY: ORDERING SYSTEM PROVIDED HISTORY: Seropositive rheumatoid arthritis (HCC) FINDINGS: The bones and joints are unremarkable without definite fracture, dislocation, significant degenerative/erosive change, radiopaque foreign body or bony destructive lesion IMPRESSION: Unremarkable two-view right wrist series [employer] Phone: [employer] Phone: XR WRIST RIGHT (MIN 3 VIEWS) [...] Ebenezer Pepe MD 03/01/21 Final result Normal [facility] XR WRIST RIGHT (MIN 3 VIEWS) Ordered By: Apryl Tucker on 03-01-2021 Unremarkable right wrist. [employer] Phone: EXAMINATION: 3 XRAY VIEWS OF THE [...] degenerative findings. No appreciable soft tissue abnormality. [employer] Phone: Luther, pn Incoming Radiant Results From [employer] - 03/01/2021 7:52 PM EDT EXAMINATION: 3 [...] soft tissue abnormality. IMPRESSION: Unremarkable right wrist. [employer] Phone: [facility] [employer] Work Phone: XR KNEE RIGHT (1-2 VIEWS)on [...] MD 11/07/20 Recipients: Shahrzad Hensley APRN - ADVISORY SOFTWARE ENGINEER - (authorizing provider) Final result Normal [facility] XR KNEE RIGHT (3 VIEWS)on Joint effusion witho ut acute osseous abnormality. [facility] [place] EXAMINATION: THREE XRAY VIEWS OF THE RIGHT [...] effusion. The periarticular soft tissues are unremarkable. [place], [place] Luther, [employer] Incoming Radiant Results From [employer] - 09/04/2019 6:08 PM EST EXAMINATION: THREE [...] effusion without acute osseous abnormality. [facility] [place] [facility] LEFT (MIN 3 VIEWS)on 05-12-2019 No acute osseous abnormality. [facility] [place] EXAMINATION: THREE XRAY VIEWS OF THE LEFT HAND 05/12/2019 12:22 pm COMPARISON: November 12, 2018 HISTORY: ORDERING SYSTEM PROVIDED HISTORY: pain TECHNOLOGIST PROVIDED HISTORY: pain FINDINGS: There is no evidence of acute fracture. There is normal alignment. No acute joint abnormality. No focal osseous lesion. No focal soft tissue abnormality. [facility] [place] Luther, [employer] Incoming Radiant Results From [employer] - 05/12/2019 12:48 PM EDT EXAMINATION: THREE XRAY VIEWS OF THE LEFT HAND 05/12/2019 12:22 pm COMPARISON: November 12, 2018 HISTORY: ORDERING SYSTEM PROVIDED HISTORY: pain TECHNOLOGIST PROVIDED HISTORY: pain FINDINGS: There is no evidence of acute fracture. There is normal alignment. No acute joint abnormality. No focal osseous lesion. No focal soft tissue abnormality. IMPRESSION: No acute osseous abnormality. [facility] [place] MRI BRAIN WO CONTRASTon 04-03 MRI BRAIN [...] Tiffanie Hughes MD 04/24/19 Final result Normal [facility] MRI CERVICAL SPINE WO CONTRA STon [...] Tiffanie Hughes MD 04/24/19 Final result Normal [facility] Vital Signs Date Time Vital Sign Value Performing Clinician Robson henry 05-15-2024 14:12-0400 Blood Pressure Location [facility]els[facility] 05-15-2024 14:12-0400 Diastolic blood pressure 76 mm[Hg] David NILL [facility] 05-15-2024 14:12-0400 Heart rate 76 /min David NILL [facility] 05-15-2024 14:12-0400 Respiratory rate 16 /min David NILL [facility] 05-15-2024 14:12-0400 Systolic blood pressure 118 mm[Hg] David NILL [facility] 09-13-2021 08:22-0500 Diastolic blood pressure 86 mm[Hg] Francis Pinto DO Work Phone: [facility] 09-13-2021 08:22-0500 Systolic blood pressure 147 mm[Hg] Francis Pinto DO Work Phone: [employer] 09-13-2021 08:20-0500 Body mass index (BMI) [Ratio] 37.2 kg/m2 Francis Melendrezrov DO Work Phone: [employer] 09-13-2021 08:20-0500 Body temperature 97.39 [degF] Francis Melendrezrov DO Work Phone: [employer] 09-13-2021 08:20-0500 Body weight 95.25 kg Francis Melendrezrov DO Work Phone: [employer] 09-13-2021 08:20-0500 Heart rate 85 /min Francis Melendrezrov DO Work Phone: [employer] 09-13-2021 08:20-0500 Respiratory rate 16 /min Francis Melendrezrov DO Work Phone: [employer] 09-13-2021 08:20-0500 SaO2% (BldA) [Mass fraction] 99 % Francis Melendrezrov [employer] Work Phone: [employer] 03-01-2021 18:28-0400 Diastolic blood pressure 96 mm[Hg] Sumomi Work Phone: [employer] Work Phone: 03-01-2021 18:28-0400 Systolic blood pressure 151 mm[Hg] Clari Mikala Work Phone: [employer] Work Phone: 03-01-2021 18:26-0400 Body temperature 98.71 [degF] [employer] Work Phone: [employer] Work Phone: 03-01-2021 18:26-0400 Heart rate 70 /min [employer] Work Phone: [employer] Work Phone: 03-01-2021 18:26-0400 Respiratory rate 18 /min [employer] Work Phone: [employer] Work Phone: 03-01-2021 18:26-0400 SaO2% (BldA) [Mass fraction] 98 % Clari Dumont Work Phone: [facility] [employer] Work Phone: 09-06-2019 20:00-0500 Body Temperature 97.9 [degF] Oscar Claytonimes [employer] [facility] [place] 09-06-2019 20:00-0500 BP Diastolic 100 mm[Hg] [facility] [place] 09-06-2019 20:00-0500 BP Systolic 154 mm[Hg] [facility] [place] 09-06-2019 20:00-0500 Pulse (Heart Rate) 89 /min [facility] [place] [place] 09-06-2019 20:00-0500 Pulse Oximetry 97 % [facility] [place] [facility] [place] 09-06-2019 20:00-0500 Respiratory Rate 19 /min Oscar Claytonimes [employer] [facility] [place] 09-04-2019 17:38-0500 BMI (Body Mass Index) 36.49 kg/m2 David Huitronpatrick [facility], [place] 09-04-2019 17:38-0500 Body Temperature 98.2 [degF] David Perez [facility], [place] 09-04-2019 17:38-0500 Body weight 93.44 kg David Huitronpatrick [facility], [place] 09-04-2019 17:38-0500 BP Diastolic 94 mm[Hg] [facility] [place] 09-04-2019 17:38-0500 BP Systolic 142 mm[Hg] [facility] [place] 09-04-2019 17:38-0500 Pulse (Heart Rate) 87 /min David Carter [facility], [place] 09-04-2019 17:38-0500 Pulse Oximetry 99 % David Perez [facility], [place] 09-04-2019 17:38-0500 Respiratory Rate 14 /min David Crater [facility], [place] 05-12-2019 12:15-0400 Body Temperature 98.01 [degF] Clari Dumont [facility], [place] 05-12-2019 12:14-0400 BP Diastolic 85 mm[Hg] [facility] , [place] 05-12-2019 12:14-0400 BP Systolic 152 mm[Hg] [facility] [place] 05-12-2019 12:14-0400 Pulse (Heart Rate) 87 /min [facility], [place] 05-12-2019 12:14-0400 Pulse Oximetry 96 % Clari Dumont [facility] , [place] 05-12-2019 12:14-0400 Respiratory Rate 16 /min Cl[facility], [place] Encounters Encounter Date Encounter Type Care Provider Facility Start: 07-18-2024 End: 07-18-2024 Bamboo flowsheet Ruth Ann Gonzalez [employer]EL[employer] Work Phone: [facility] Start: 07-18-2024 End: 07-18-2024 Bamboo flowsheet Ruth Ann Gonzalez [employer] ACCESS DEVELOPER Work Phone: [facility] Start: 07-18-2024 End: 07-18-2024 Office outpatient visit 25 minutes Ruth Ann Gonzalez [employer] ACCESS DEVELOPER Work Phone: [facility] Comment on above: Low back pain, unspe cified back pain laterality, unspecified chronicity, unspecified whether sciatica present (Primary Dx); Bilateral sciatica Start: 07-18-2024 End: 07-18-2024 ambulatory RUTH ANN GONZALEZ Not Available Start: 05-15-2024 End: 05-15-2024 ambulatory ISABELLA KAPLAN Facility:[facility] Start: 05-15-2024 End: 05-15-2024 Patient encounter procedure David DIAMOND [facility] [place] Start: 01-24-2024 End: 01-24-2024 ambulatory WILL SANTANA [...] Start: 08-12-2023 ambulatory Laksh[facility] Ruiz [facility] Start: 07-06-2022 End: 07-07-2022 ambulatory ISABELLA KAPLAN Facility:[facility] Start: 05-21-2022 End: 05-22-2022 ambulatory ISABELLA KAPLAN Facility:[facility] Start: 03-19-2022 End: 03-27-2022 ambulatory ISABELLA KAPLAN Facility:[facility] Start: 02-22-2022 End: 02-23-[address] APRYL RIOS Facility:[facility] Start: 09-23-2021 End: 09-23-2021 [facility] Start: 09-21-2021 End: 09-21-2021 Emergency department patient visit CLARI WOLFHMANN [facility] Start: 09-13-2021 End: 09-13-2021 Emergency department patient visit FRANCIS Bacilio MELENDREZLilly [facility] Start: 09-13-2021 End: 09-13-2021 [facility] ED Comment on above: Sprain of right foot , initial encounter (Primary Dx); Sprain of left ankle, unspecified ligament, initial encounter Start: 05-08-2021 End: 05-11-2021 ambulatory QUINCY INTERIANO [facility] Start: 05-08-2021 End: 05-10-2021 Subsequent hospital visit by physician Karoline Varela [facility] Comment on above: Microscopic hematuri a; Flank pain; Hydronephrosis with ureteral calculus Start: 05-01-2021 End: 05-04-[address] [facility] Start: 05-01-2021 End: 05-03-2021 Subsequent hospital visit by physician Karoline Meek Dr Room 2 [facility] Comment on above: Seropositive rheumat oid arthritis (HCC) Pain Start: 03-01-2021 End: 03-01-2021 [facility] Start: 03-01-2021 End: 03-01-2021 Emergency department patient visit Clari Wolfhmann Work Phone: [facility] ED Comment on above: Strain of right wris t, initial encounter (Primary Dx) Start: 11-07-2020 End: 11-10-2020 ambulatory SHAHRZAD HENSLEY [facility] Start: 11-07-2020 End: 11-09-2020 Subsequent hospital visit by physician Clari Wolfhmann [facility] Start: 09-06-2019 End: 09-06-2019 Emergency department patient visit Oscar Zuniga Work Phone: [facility] ED Comment on above: Sprain of collateral ligament of right knee, initial encounter (Primary Dx) Start: 09-04-2019 End: 09-04-2019 Emergency department patient visit David Perez [facility] ED Comment on above: Injury of right knee , initial encounter (Primary Dx); Effusion of right knee joint Start: 05-12-2019 End: 05-12-2019 Emergency department [facility] Comment on above: Contusion of left coles nd including fingers, initial encounter (Primary Dx) Start: 04-20-2019 End: 04-20-2019 Emergency department patient visit JEAN HARPER [facility] Start: 07-29-2017 End: 07-30-2017 Ambulatory Nilo Mendez Facility:[facility] Procedures Date Procedure Procedure Detail [...] DTaP/Tdap/Td vaccine (2 - Td or Tdap) [facility] Start: 11-28-2027 DTaP/Tdap/Td vaccine (2 - Td) DTaP/Tdap/Td vaccine (2 - Td) [place] Start: 08-01-2024 End: 08-01-2024 Patient encounter procedure 08/01/2024 8:00 AM EDT Office Visit [facility] [address] [place] [address] Ruth Ann Gonzalez [employer] ACCESS DEVELOPER [address] [place] [address] [facility] Start: 07-18-2024 End: 07-18-2024 Patient encounter procedure 07/18/2024 8:45 AM EDT Office Visit [facility] [address] [place] [address] Ruth Ann Gonzalez, [employer]ESS DEVELOPER [address] [place] [address] Low back pain, unspecified back pain laterality, unspecified chronicity, unspecified whether sciatica present (Primary Dx) [facility] Comment on above: Low back pain, unspe cified back pain laterality, unspecified chronicity, unspecified whether sciatica present (Primary Dx) Start: 11-25-2021 End: 11-25-2021 Patient encounter procedure 11/25/2021 Office Visit Rheumatology Fatuma Sanchez MD [address] [place] [address] [facility] Start: 06-24-2021 End: 06-24-2021 Patient encounter procedure 06/24/2021 Office Visit Rheumatology Fatuma Sanchez MD [address] [place] [address] [phone] [facility] Start: 06-03-2021 Influenza vaccination [facility] Start: 2021 Lipid panel Lipid screen [facility] Start: 06-03-2020 Influenza vaccination Flu vaccine (# 1) [place] Start: 06-03-2019 Influenza vaccination Flu vaccine (# 1) [place] Start: 2016 Diabetes screen Diabetes screen [facility] Start: 2000 DTaP/Tdap/Td vaccine (1 - Tdap) DTaP/Tdap/Td vaccine (1 - Tdap) [place] Start: 1996 HIV screen HIV screen [place], [place] Start: 1996 HIV screening HIV screen [facility] Start: 1994 Varicella Vaccine (1 of 2 - 13+ 2-dose series) Varicella Vaccine (1 of 2 - 13+ 2-dose series) [place] Start: 1993 COVID-19 Vaccine (1) COVID-19 Vaccin e (1) [facility] Start: 1992 DTaP/Tdap/Td vaccine (1 - Tdap) DTaP/Tdap/Td vaccine (1 - Tdap) [place] Start: 1982 Varicella Vaccine (1 of 2 - 2-dose childhood series) Varicella Vaccine (1 of 2 - 2-dose childhood series) [facility] Start: 1981 Hepatitis C screening Hepatitis C sc reen [facility] End: 05-12-2019 [place] application Splint application Procedures STAT One Time for 1 Occurrences starting 05/12/2019 until 05/12/2019 [place], [place] Comment on above: One Time for 1 Occur rences starting 05/12/2019 until 05/12/2019 Immunizations Immunization Date Immunization Notes Care Provider Fa cility 10-22-2019 influenza, injectable, quadrivalent, preservative free Ruth Ann Gonzalez [employer] ACCESS DEVELOPER Work Phone: [facility] 11-28-2017 tetanus toxoid, reduced diphtheria toxoid, and acellular pertussis vaccine, adsorbed Ruth Ann Gonzalez [employer] ACCESS DEVELOPER Work Phone: [facility] 07-14-2010 influenza virus vaccine, whole virus Clari Dumont [place], [place] NEGATED: Highlighted row has not occurred!05-11-2021 SARS-CoV-2 (COVID-19) Ad26 vaccine, recombinant David NILL [facility] Payers Date Payer Category Payer [facility] BCBS [id number] 2024 Unknown [id number] 2022 Medicaid [id number] 2020 Unknown [id number] 10.04.840.829086.1.13.239.2. 7.3.003224.315 2019 Unknown [id number] 2019 Unknown [facility] [id number] xxxxxxxxx 2019-Present [address] [address] [place] [address] xxxxxxxxx 1.2.840.224954.1.13.239.2. 7.3.371502.315 1981 Unknown [id number] 2.16.840.1.401884.3.579.2. 175 1981 Unknown [id number] 2.16.840.1.386324.3.579.2. 173 1981 Unknown [id number] 2.16.840.1.984856.3.579.2. 173 1981 Unknown [id number] 2.16.840.1.570834.3.579.2. 173 1981 Unknown [id number] 2.16.840.1.810582.3.579.2. 173 1981 Unknown [id number] 2.16.840.1.754590.3.579.2. 173 1981 Unknown [id number] 2.16.840.1.551999.3.579.2. 173 1981 Unknown [id number] 2.16.840.1.146615.3.579.2. 173 1981 Unknown [id number] 2.16.840.1.593314.3.579.2. 173 1981 Unknown [id number] 2.16.840.1.276992.3.579.2. 173 1981 Unknown [id number] 2.16.840.1.970865.3.579.2. 173 1981 Unknown [id number] 2.16.840.1.904337.3.579.2. 173 1981 Unknown [id number] 2.16.840.1.078842.3.579.2. 173 1981 Unknown [id number] 2.16.840.1.099403.3.579.2. 173 1981 Unknown [id number] 2.16.840.1.032961.3.579.2. 173 1981 Unknown [id number] 2.16.840.1.190143.3.579.2. 173 1981 Unknown [id number] 2.16.840.1.476155.3.579.2. 173 1981 Unknown [id number] 2.16.840.1.355192.3.579.2. 173 1981 Unknown [id number] 2.16840.1.720543.3.579.2. 173 1981 Unknown [id number] 2.16840.1.905700.3.579.2. 173 1981 Unknown [id number] 2.16840.1.384500.3.579.2. 593 1981 Unknown [id number] 2.16840.1.020372.3.579.2. 593 1981 Unknown [id number] 2.16840.1.554295.3.579.2. 593 1981 Unknown [id number] 2.16840.1.572072.3.579.2. 593 1981 Unknown [id number] 2.16840.1.092815.3.579.2. 727 1981 Unknown [id number] 2.16.840.1.053950.3.579.2. 727 1981 Unknown [id number] 2.16.840.1.823915.3.579.2. 1259 1981 Unknown [id number] 2.16.840.1.443270.3.579.2. 1259 1981 Unknown [id number] 2.16.840.1.941695.3.579.2. 1259 1981 Unknown [id number] 2.16.840.1.635161.3.579.2. 9 1981 Unknown [id number] 2.16.840.1.627282.3.579.2. 1258 1981 Unknown [id number] 2.16.840.1.380747.3.579.2. 1258 1981 Unknown [id number] 2.16.840.1.453082.3.579.2. 1258 1981 Unknown [id number] 2.16.840.1.702278.3.579.2. 1258 1981 Unknown [id number] 2.16.840.1.219280.3.579.2. 9 1959 Unknown [id number] 1.2.840.128325.1.13.239.2. 7.3.926548.315 1959 Unknown [id number] Social History Date Type Detail Facility Start: 09-04-2019 End: 02-10-2023 Tobacco smoking status NHIS Never smoker [facility] Start: 09-04-2019 End: 03-27-2021 Alcohol intake Current non-drinker of alcohol (finding) [place], [place] Start: 10-16-2017 Alcohol Comment very reare [place] Start: 1980 Sex Assigned At Not on file [place] Start: 05-12-2019 End: 01-11-2024 Alcohol intake No [facility] Start: 09-06-2019 End: 02-10-2023 Tobacco use and exposure Never used [place] Exposure to SARS-CoV -2 (event) Not sure [facility] Start: 03-27-2021 Alcohol Comment very rare Emma parikh Work Phone: Tobacco smoking status Never [facility] [place] Start: 01-11-2024 End: 07-18-2024 Alcoholic beverage intake Current drinker of alcohol (finding) [facility] Start: 01-11-2024 End: 07-18-2024 Alcoholic beverage intake [facility] Start: 02-10-2023 Alcohol Comment caffeine intak e: 3-4 cups per day, soda [facility] Start: 10-03-2023 Gender identity Identifies as male gender (finding) [facility] Functional Status Date Assessment Result Facility 05-15-2024 Functional Status N/A [facility] [place] Clinical Notes 09-13-2021 to 07-18-2024 Ruth Ann Gonzalez [employer] ACCESS DEVELOPER - 07/18/2024 8:45 AM EDTInstructionsAttachments Note Date [...] has a new job working at a [employer], 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 [place]: XR NOMS 11/28/23, [...] activities as tolerated documented in this encounter [facility] 05-15-2024 Note General Surgery Offi ce/Clinic [...] Procedure/Surgica (more content not included)... [facility] Comment on above: Result Comment: Elec tronically Signed By: DARA FARIAS, David Loera\.br\Date and Time Signed: 05/15/24 14:59 EDT 11-11-2023 Note TC to Home number fo r [employer] DEVELOPER referral for: Elevated Rheumatoid Factor Referral in remedial teacher Spoke with son and provider Rheum clinic call back number. Son states he will give his father the message to return call. [facility] 07-06-2022 Note CONSULTATION CONSULTATION DATE: 07/06/2022 [...] work. 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 He has low back pain 3/10. The [...] in office. CC: Chen Kaplan CNP [facility] 09-13-2021 Hospital Discharge instructions Francis Pinto DO - 09/13/2021 Return to the Emergency Department immediately if you develop worsening pain, numbness, weakness , or you have any other concerns. Please follow up with your orthopaeidc doctor in 2-3 days. Ice, elevate Use crutches The following attachments cannot be sent through Care Everywhere.Ankle Sprain (Honduran)documented in this encounter [facility] Phone: Evaluation + Plan note No data available for this section [facility] [employer] Evaluation note Diagnosis Strain of right wrist, initial encounter- Primary documented in this encounter [facility] Phone: evaluation note* Diagnosis Seropositive rheumatoid arthritis (HCC) Rheumatoid arthritis documented in this encounter [facility] Phone: evaluation note* Diagnosis Pain Generalized pain documented in this encounter [facility] [facility] Phone: evalcmesnd note* Diagnosis Microscopic hematuria Flank pain Abdominal pain, unspecified site Hydronephrosis with ureteral calculus Calculus of ureter documented in this encounter [facility] Phone: evaluation note* Diagnosis Sprain of right foot, initial encounter- Primary Sprain of left ankle, unspecified ligament, initial encounter documented in this encounter [facility] Phone: evaluation note* Diagnosis Low back pain, unspecified back pain laterality, unspecified chronicity, unspecified whether sciatica present- Primary Bilateral sciatica Sciatica documented in this encounter [facility]ospital Discharge instructions* Attachments The following attachments cannot be sent through Care Everywhere. * Strain or Sprain (Honduran) [facility]: Hospital Discharge instructions No data available for this section [facility] [employer] Progress note No data available for this section [facility] [employer] Summary Purpose Family History No Family History Records FoundNo Family History Records FoundNo Family History Records FoundNo Family History Records FoundNo Family History Records FoundNo Family History Records Found No data available for this section No Family History Records FoundNo Family History Records Found Advance Directives No Advanced Directives Records FoundDocuments on File Type Date Recorded Patient Cassandra Consultant Expl anation Advance Directives and Living Will Power of Juvenile Officer Documents on File Type Date Recorded Patient Cassandra Consultant Expl anation ACP-Advance Directive ACP-Power of Juvenile Officer Assessments Diagnosis Injury of right knee, initial [...] sent through Care Everywhere. * Finger: Bruises (Honduran) documented in this encounter* Attachments The following attachments cannot be sent through Care Everywhere. * Knee Sprain (Honduran) documented in this encounter Additional Source Comments (unrecognized sect ion and content) No Status Records FoundNo Status Records FoundNo Status Records FoundNo Status Records FoundNo Status Records FoundNo Status Records FoundNo Status Records FoundNo Status Records Found INFORMATION SOURCE (unrecogn ized section and content) DATE CREATED AUTHOR 03/31/2018 [facility] DATE CREATED AUTHOR AUTHOR'S ORGANIZ ATION 04/26/2019 [facility] DATE CREATED AUTHOR AUTHOR'S ORGANIZ ATION 09/23/2021 [facility] DATE CREATED AUTHOR AUTHOR'S ORGANIZ ATION 02/16/2023 [facility] DATE CREATED AUTHOR AUTHOR'S ORGANIZ ATION 08/14/2023 [facility] DATE CREATED AUTHOR AUTHOR'S ORGANIZ ATION 11/13/2023 [facility] DATE CREATED AUTHOR AUTHOR'S ORGANIZ ATION 05/16/2024 [facility] DATE CREATED AUTHOR AUTHOR'S ORGANIZ ATION 07/20/2024 [facility] EPIC Reason for Visit (unrecogniz [...] Teams (unrecognized sec tion and content) Medical Technologist Prn Relationship Specialty Start Date [place] [address] PCP - General Nurse Practitioner 04/21/19 Medical Technologist Prn Relationship Specialty Start Date End Date Ac Schmid MD [address] [place] [phone] PCP - General Family Medicine 02/08/23 [place] [address] [place] [id number] Referring Physician Family Medicine 09/12/23 Medical Technologist Prn Relationship Specialty Start Date End Date Ac Schmid MD [address] [place] [phone] PCP - General Family Medicine 02/08/23 Isabella Kaplan MD [address] [place], [place] [id number] Referring Physician Family Medicine 09/12/23 FOR RECORDS [...] BE BASED ON THE PRIMARY CLINICAL RECORDS. [employer] provides no warranty or guarantee of the accuracy or completeness of information in this document.
[2024-09-02] MEDS: KETOROLAC TROMETHAMINE 60 MG/2 ML VIAL IM (17:47)
[2024-09-02] MEDS: METHYLPREDNISOLONE SOD SUCC PF 125 MG/2 ML VIAL IM (17:48)
== END 2024-09-02 17:52 | disposition home or self-care (01) ==
PROVIDERS: Emergency Provider Emergency Medicine; PCP Nurse Practitioner Family
DX: R19.7 Diarrhea, unspecified (principal); M54.32 Sciatica, left side
CPT/HCPCS: 74018; 96372; 99284; J1885; J2919

== ENCOUNTER 2024-09-07 09:20 | Outpatient (OUT) | payer BC, SELFPAY ==
--- NOTE | 2024-09-07 | XR_ITS ---
[address] [address] Patient Name: ARIADNA MONTEIRO MRN: [id number] date: 1980 Sex: M Assigned Patient Location: Current Patient Location: Accession/Order Number: [id number] Exam Date: 09/07/2024 09:21 Report Date: 09/09/2024 04:29 At the request of: SIRENA MCCABE Procedure: XR lumbar spine bending only EXAMINATION: XR lumbar spine bending only HISTORY: LUMBAR SPINE PAIN COMPARISON: XR lumbar spine 07/24/2024 FINDINGS: BONES: Lateral flexion and extension views were obtained. Minimal anterior wedging of T12 vertebral body without increased density of the trabecula. No anterior-posterior listhesis. No change in alignment during flexion and extension. Minimal degenerative facet arthropathy of the lower lumbar spine. DISC SPACES: Moderate narrowing L4-L5. Mild narrowing L5-S1. PARASPINOUS: Negative. No paraspinous abnormality is seen. OTHER: Negative. XR/XR lumbar spine bending only IMPRESSION: 1. Degenerative disc disease of lower lumbar spine. 2. No listhesis or change in alignment during flexion and extension. Electronically authenticated by: APRYL RIOS Date: 09/09/2024 04:29
== END 2024-09-07 09:21 | disposition home or self-care (01) ==
LOC: EC 09:20
PROVIDERS: PCP Nurse Practitioner Family; Visit Provider Orthopaedic Surgery Orthopaedic Surgery of the Spine
DX: M54.50 Low back pain, unspecified (principal); M51.369 Other intervertebral disc degeneration, lumbar region without mention of lumbar back pain or lower extremity pain
CPT/HCPCS: 72120

== ENCOUNTER 2024-09-10 15:37 | Outpatient (RCR) | payer BC, SELFPAY | END 2024-10-02 14:25 | disposition home or self-care (01) | LOC: PT 15:37 | PROVIDERS: PCP Nurse Practitioner Family; Visit Provider Nurse Practitioner Family | DX: M54.30 Sciatica, unspecified side (principal) | CPT/HCPCS: 97110; 97113; 97140; 97161 ==

== ENCOUNTER 2024-09-21 09:42 | Outpatient (OUT) | payer BC, SELFPAY ==
--- NOTE | 2024-09-21 09:50 | MR_ITS ---
[address] [address] Patient Name: ARIADNA MONTEIRO MRN: [id number] date: 1980 Sex: M Assigned Patient Location: MRI Current Patient Location: MRI Accession/Order Number: [id number] Exam Date: 09/21/2024 10:00 Report Date: 09/21/2024 13:37 At the request of: GENOVEVA BARBOSA Procedure: MR lumbar spine wo con EXAMINATION: MR lumbar spine wo con HISTORY: Degeneration Of Lumbar Region With Back Pain COMPARISON: No relevant comparison available. TECHNIQUE: A variety of imaging planes and parameters were utilized for visualization of suspected pathology. FINDINGS: For the purposes of numbering, sagittal T2 image # 8 extends from the 11th vertebral body superiorly to the S3 level inferiorly. PARASPINAL AREA: Normal with no visible mass. BONES: Normal alignment with no acute fracture or spondylolisthesis. CORD/CAUDA EQUINA: Partially visualized cystic area. No central or foraminal stenosis measuring 5.1 x 2.8 cm posterior to the S2 and S3 vertebral body best seen on sagittal image #7 DISC LEVELS: 12-L1: No significant disc/facet abnormality, spinal stenosis, or foraminal stenosis. L1-L2: No significant disc/facet abnormality, spinal stenosis, or foraminal stenosis. L2-L3: No significant disc/facet abnormality, spinal stenosis, or foraminal stenosis. L3-L4: No significant disc/facet abnormality, spinal stenosis, or foraminal stenosis. L4-L5: Moderate disc space narrowing and disc desiccation. Posterior broad-based disc protrusion extending up to 3 mm L5-S1: No significant disc/facet abnormality, spinal stenosis, or foraminal stenosis. MR/MR lumbar spine wo con IMPRESSION: Degenerative disc disease L4-L5 with no central or foraminal stenosis 5.1 cm cystic area posterior to the S2 and S3 vertebral bodies. Consider MRI of the sacrum with and without contrast for further evaluation. Electronically authenticated by: MICHAEL RAE Date: 09/21/2024 13:37
--- OUTSIDE RECORDS SUMMARY | 2024-09-21 10:04 | XMS_ITS | CCD ---
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 Name Role Phone Nilo Mendez Unavailable Unavailable [...] MIKALA, CLARI A Primary Care Unavailable EUSEBIO, ISABLELA Primary Care Unavailable BEN ., DR YULI [...] Unavailable Ac Schmid MD Primary Care Provider [phone] Isabella Kaplan MD Unavailable NICOLETTE, RUTH ANN [...] (13 sources) traMADol Drug Allergy 6 Rash [facility] Penicillins (antibiotic) (13 sources) Penicillins Drug Allergy 1 Rash [facility] (7 sources) Penicillins; Translations: [penicillins] Propensity to adverse reactions to drug 1 Rash, Eruption of skin (disorder) [place], [place] (9 sources) traMADol; Translations: [tramadol] Drug Allergy 6 Rash, Eruption of skin (disorder) [place], [place] (1 source) Penicillin Drug Allergy 8 [facility] (2 sources) traMADol; Translations: [Ultram] Drug Allergy [facility] Repository (3 sources) Naproxen Drug Allergy 3 Rash [facility] (3 sources) Penicillins Drug Allergy 3 Hives [facility] Medications Current Medications Medication Drug Class(es) [...] BID, # 20 cap(s), Refills(s) 0, Pharmacy: [facility], 160, cm, 05/04/21 15:08:00 EDT, [...] you for choosing us for your care. [facility] Ambulatory Visit Summary Ambulatory Visit Summary JUNIOR [...] for choosing us for your care. Normal [facility] Physician Referralon 023 Physician Referral [phone] 02 [id number] TIFF Normal [facility] MRI LSPINE WO CONon 05-21-20 22 [...] MICHAEL RAE Date: 2022-05-21 18:38 Normal [facility] XR FOREIGN BODY EYEon 2021 XR FOREIGN BODY EYE EXAMINATION: XR FOREIGN BODY EYE HISTORY: Foreign body in eye COMPARISON: No relevant comparison available. FINDINGS: ORBITS: Negative for a metallic foreign body. OTHER: Negative. IMPRESSION: 1. No metallic foreign body within the orbits. Electronically authenticated by: APRYL RIOS Date: 2022-05-21 10:36 Normal [facility] XR LSPINE MIN 4 VIEWSon 02-01 XR [...] APRYL RIOS Date: 2022-02-22 11:06 Normal [facility] CBC with Diffon 09-23-2021 Abs. Basophil 0.02 k/uL Normal 0.0-0.2 [facility] Comment on above: Performed By: #### C ELOY LOPEZ, IPF ####[address] , [place] [id number] lab Director: Michael Meyer MD Abs.Imm.Granulocyte 0.02 k/uL Normal 0.00-0.30 [facility] Comment on above: Performed By: #### C ELOY LOPEZ, IPF ####[address] [place] [address] lab Director: Michael Meyer MD Abs.Neutrophil (Seg) 1.28 k/uL Low 1.50-8.10 [facility] Comment on above: Performed By: #### C ELOY LOPEZ, IPF ####[address] , [place] [phone] Director: Michael Meyer MD Basophils/100 WBC (Bld) 1 % Normal 0-2 [facility] Comment on above: Performed By: #### C DP, CP, IPF ####[address] [place] [address] Lab Director: Michael Meyer MD Eosinophils (Bld) [#/Vol] 0.00 10*3/uL Normal 0.00-0.44 [facility] Comment on above: Performed By: #### C DP, CP, IPF ####[address] , [facility]83[facility])[phone] Director: Michael Meyer MD Eosinophils/100 WBC (Bld) 0 % Low 1-4 [facility] Comment on above: Performed By: #### C JESSICA CP, IPF ####[address] , [facility]83[facility])[phone] Director: Michael Meyer MD Immature granulocytes/100 WBC (Bld) 1 % High 0 [facility] Comment on above: Performed By: #### C JESSICA, CP, IPF ####[address] , [phone] Director: Michael Meyer MD Lymphocytes (Bld) [#/Vol] 0.73 10*3/uL Low 1.10-3.70 [facility] Comment on above: Performed By: #### C DP, CP, IPF ####[address] , [place] [phone] Director: Michael Meyer MD Lymphocytes/100 WBC (Bld) 33 % Normal 24-43 [facility] Comment on above: Performed By: #### C DP, CP, IPF ####[address] , [place] [id number] Lab Director: Michael Meyer MD Monocytes (Bld) [#/Vol] 0.15 10*3/uL Normal 0.10-1.20 [facility] Comment on above: Performed By: #### C DP CP, IPF ####[address] [place] [address] Lab Director: Michael Meyer MD Monocytes/100 WBC (Bld) 7 % Normal 3-12 [facility] Comment on above: Performed By: #### C DP, CP, IPF ####[address] , [place] [phone] Director: Michael Meyer MD Morphology Fernando (Bld) [Interp] Platelet scan shows Normal Platelets Normal [facility] Comment on above: Performed By: #### C JESSICA CP, IPF ####[address] , [place] [phone] Director: Michael Meyer MD Neutrophil (Seg) 58 % Normal 36-65 [facility] Comment on above: Performed By: #### C JESSICA CP, IPF ####[address] , [facility]83[facility])[phone] Director: Michael Meyer MD Erythrocyte distribution width (RBC) [Ratio] 11.2 % Low 11.8-14.4 [facility] Comment on above: Performed By: #### C JESSICA CP, IPF ####[address] , [facility]83[facility])[phone] Director: Michael Meyer MD Hematocrit (Bld) [Volume fraction] 46.3 % Normal 40.7-50.3 [facility] Comment on above: Performed By: #### C DP, CP, IPF ####[address] [place] [address] Lab Director: Michael Meyer MD Hemoglobin (Bld) [Mass/Vol] 15.6 g/dL Normal 13.0-17.0 [facility] Comment on above: Performed By: #### C DP, CP, IPF ####[address] , [facility]83 [facility] Director: Michael Meyer MD MCH (RBC) [Entitic mass] 28.5 pg Normal 25.2-33.5 [facility] Comment on above: Performed By: #### C DP, CP, IPF ####[address] , [facility]26([facility])[phone] Director: Michael Meyer MD MCHC (RBC) [Mass/Vol] 33.7 g/dL Normal 28.4-34.8 [facility] Comment on above: Performed By: #### C DP, CP, IPF ####[address] , [place] [address])[phone] Director: Michael Meyer MD MCV (RBC) [Entitic vol] 84.6 fL Normal 82.6-102.9 [facility] Comment on above: Performed By: #### C DP, CP, IPF ####[address] , [facility]83 [facility] Director: Michael Meyer MD NRBC Automated 0.0 per 100 WBC Normal 0.0 [facility] Comment on above: Performed By: #### C DP, CP, IPF ####[address] , [place] [address])[phone] Director: Michael Meyer MD Platelet Count See Reflexed IPF Result Normal 138-453 [facility] Comment on above: Performed By: #### C DP, CP, IPF ####[address] , [facility]83 lab Director: Michael Meyer MD RBC (Bld) [#/Vol] 5.47 10*6/uL Normal 4.21-5.77 [facility] Comment on above: Performed By: #### C DP, CP, IPF ####[address] [place] [address] Lab Director: Michael Meyer MD WBC (Bld) [#/Vol] 2.2 10*3/uL Low 3.5-11.3 [facility] Comment on above: Performed By: #### C DP, CP, IPF ####[address] [place] [address] Lab Director: Michael Meyer MD Auto Diff Performed NOT REPORTED Normal [facility] Comment on above: Performed By: #### C DP, CP, IPF ####[address] [place] [address] Lab Director: Michael Meyer MD MPV NOT REPORTED Normal 8.1-13.5 [facility] Comment on above: Performed By: #### C DP, CP, IPF ####[address] [place] [address] Lab Director: Michael Meyer MD Platelet Comment NOT REPORTED Normal [facility] Comment on above: Performed By: #### C DP, CP, IPF ####[address] [place] [address] Lab Director: Michael Meyer MD RBC morphology finding Nom (Bld) NOT REPORTED Normal [facility] Comment on above: Performed By: #### C DP, CP, IPF ####[address] [place] [address] Lab Director: Michael Meyer MD WBC Morphology NOT REPORTED Normal [facility] Comment on above: Performed By: #### C DP, CP, IPF ####[address] [place] [address] Lab Director: Michael Meyer MD Comp Metabolic Profon 2020 (cont.) Normal [facility] Comment on above: Result Comment: Aver age GFR for 40-49 years old: 99 mL/min/1.73sq m Chronic Kidney Disease: <60 mL/min/1.73sq m Kidney failure: <15 mL/min/1.73sq m eGFR calculated using average adult body mass. Additional eGFR calculator available at: http://www.[employer]/multiple_crcl_2012.htm Performed By: #### C DP, CP, IPF ####[address] , [place] [phone] Director: Michael Meyer MD Albumin [Mass/Vol] 4.1 g/dL Normal 3.5-5.2 [facility] Comment on above: Performed By: #### C DP, CP, IPF ####[address] [place] [address] Lab Director: Michael Meyer MD Albumin/Glob Ratio 1.1 Normal 1.0-2.5 [facility] Comment on above: Performed By: #### C DP, CP, IPF ####[address] [place] [address] Lab Director: Michael Meyer MD Alkaline Phos 87 U/L Normal 40-129 [facility] Comment on above: Performed By: #### C DP, CP, IPF ####[address] [place] [address] Lab Director: Michael Meyer MD ALT [Catalytic activity/Vol] 65 U/L High 5-41 [facility] Comment on above: Performed By: #### C DP, CP, IPF ####[address] [place] [address] Lab Director: Michael Meyer MD Anion gap [Moles/Vol] 13 mmol/L Normal 9-17 [facility] Comment on above: Performed By: #### C DP, CP, IPF ####[address] [place] [address] Lab Director: Michael Meyer MD AST [Catalytic activity/Vol] 68 U/L High <40 [facility] Comment on above: Performed By: #### C DP, CP, IPF ####[facility] [place] , [place] 7[address]83 Lab Director: Michael Meyer MD Bilirubin [Mass/Vol] 0.52 mg/dL Normal 0.3-1.2 [facility] Comment on above: Performed By: #### C DP, CP, IPF ####[address] , [place] 1715683 Lab Director: Michael Meyer MD BUN/CRE Ratio 8 Low 9-20 [facility] Comment on above: Performed By: #### C DP, CP, IPF ####[address] , [place] 5899583 Lab Director: Michael Meyer MD Calcium [Mass/Vol] 8.8 mg/dL Normal 8.6-10.4 [facility] Comment on above: Performed By: #### C DP, CP, IPF ####[address] , [place] 9992783 Lab Director: Michael Meyer MD Chloride [Moles/Vol] 100 mmol/L Normal 98-107 [facility] Comment on above: Performed By: #### C DP, CP, IPF ####[address] , [place] 8597183 Lab Director: Michael Meyer MD CO2 [Moles/Vol] 23 mmol/L Normal 20-31 [facility] Comment on above: Performed By: #### C DP, CP, IPF ####[address] , [place] 1573683 Lab Director: Michael Meyer MD Creatinine [Mass/Vol] 1.55 mg/dL High 0.70-1.20 [facility] Comment on above: Performed By: #### C DP, CP, IPF ####[address] [place] [address] Lab Director: Michael Meyer MD GFR, Amer >60 Normal >60 [facility] Comment on above: Performed By: #### C DP, CP, IPF ####[address] [place] [address] Lab Director: Michael Meyer MD GFR,non Amer 50 mL/min Low >60 [facility] Comment on above: Performed By: #### C DP, CP, IPF ####[address] [place] [address] lab Director: Michael Meyer MD Glucose [Mass/Vol] 94 mg/dL Normal 70-99 [facility] Comment on above: Performed By: #### C DP, CP, IPF ####[address] [place] [address] Lab Director: Michael Meyer MD Potassium [Moles/Vol] 3.9 mmol/L Normal 3.7-5.3 [facility] Comment on above: Performed By: #### C DP, CP, IPF ####[address] [place] [address] Lab Director: Michael Meyer MD Protein [Mass/Vol] 7.9 g/dL Normal 6.4-8.3 [facility] Comment on above: Performed By: #### C DP, CP, IPF ####[address] [place] [address] Lab Director: Michael Meyer MD Sodium [Moles/Vol] 136 mmol/L Normal 135-144 [facility] Comment on above: Performed By: #### C DP, CP, IPF ####[address] , [place] [phone] [facility] Director: Michael Meyer MD Staging: Normal [facility] Comment on above: Result Comment: Stag e 1: Some kidney damage normal GFR Stage 2: Mild kidney damage GFR 60-89 Stage 3: Moderate kidney damage GFR 30-59 Stage 4: Severe kidney damage GFR 15-29 Stage 5: Severe kidney damage GFR <15 ESRD - chronic treatment by dialysis or transplant Performed By: #### C ELOY LOPEZ, IPF ####[address] , [facility]83 [facility] Director: Michael Meyer MD Urea nitrogen [Mass/Vol] 13 mg/dL Normal 6-20 [facility] Comment on above: Performed By: #### C ELOY LOPEZ, IPF ####[address] , [facility]83 [facility] Director: Michael Meyer MD Lactic Acidon 09-23-2021 Lactate [Moles/Vol] 0.9 mmol/L Normal 0.5-2.2 [facility] Comment on above: Performed By: #### L ACTIC ####[address] , [facility]83 [facility] Director: Michael Meyer MD Lactic Acid,Whole Bl NOT REPORTED Normal 0.7-2.1 [facility] Comment on above: Performed By: #### L ACTIC ####[address] , [facility]83 [facility] Director: Michael Meyer MD PLT, Immature Fract.on 09-23 Platelet, Fluoresc. 42 k/uL Low 138-453 [facility] Comment on above: Performed By: #### C ELOY LOPEZ, IPF #### [address] [place] [id number] Storage Wharfage Clerk: Michael Meyer MD PLT, Immature Fract. 1.2 % Normal 1.1-10.3 [facility] Comment on above: Performed By: #### C ELOY LOPEZ, IPF #### [address] [place], [place] [phone] Storage Wharfage Clerk: Michael Meyer MD XR CHEST (SINGLE VIEW [...] by: Will Calderón 09/22/21 Final result Normal [facility] Resp Viral Panelon Adenovirus Not detected Normal [facility] Comment on above: Performed By: #### R AIR FORCE SENIOR OFFICER ####[place] [address] [place] [address] Lab Director: Juan R Tang[address] [place] [address] Lab Director: MD Guille Oviedodet.parapertussis Not detected Normal [facility] Comment on above: Performed By: #### R AIR FORCE SENIOR OFFICER ####[address] [address] Lab Director: Juan R Tang[address] [place] [id number] Lab Director: Michael Meyer MD Bordetella pertussis Not detected Normal [facility] Comment on above: Performed By: #### R AIR FORCE SENIOR OFFICER ####[place] [place] [address] Lab Director: Juan R Tang[address] [id number] Lab Director: Michael Meyer MD Chlamyd.pneumoniae Not detected Normal [facility] Comment on above: Performed By: #### R AIR FORCE SENIOR OFFICER ####[facility] [address] [place] [address] Lab Director: Juan R Tang[address] [place] [address] Lab Director: Michael Meyer MD Coronavirus 229E Not detected Normal [facility] Comment on above: Performed By: #### R AIR FORCE SENIOR OFFICER ####[facility] [address] [place] [address] Lab Director: Juan R [facility] [place] [phone] Director: Michael Meyer MD Coronavirus HKU1 Not detected [facility] Comment on above: Performed By: #### R AIR FORCE SENIOR OFFICER ####[facility] [address] [place] [address] Lab Director: Juan R Tang[address] [place] [address] Lab Director: Michael Meyer MD Coronavirus NL63 Not detected [facility] Comment on above: Performed By: #### R AIR FORCE SENIOR OFFICER ####[address] [address] Lab Director: Juan R Tang[address] [place] [address] Lab Director: Michael Meyer MD Coronavirus OC43 Not detected [facility] Comment on above: Performed By: #### R AIR FORCE SENIOR OFFICER ####[facility] [address] [place] [address] Lab Director: Juan R Tang[address] [place] [address] Lab Director: Michael Meyer MD Human Metapneumo Not detected Normal [facility] Comment on above: Performed By: #### R AIR FORCE SENIOR OFFICER ####[facility] [address] [place] [address] Lab Director: Juan R [facility] [place] [address] Lab Director: Michael Meyer MD Influenza A Not detected Normal [facility] Comment on above: Performed By: #### R AIR FORCE SENIOR OFFICER ####[facility] [address] [place] [address] Lab Director: Juan R [facility] [place] [address] Lab Director: Michael Meyer MD Influenza B Not detected [facility] Comment on above: Performed By: #### R AIR FORCE SENIOR OFFICER ####[facility] [address] [place] [address] Lab Director: Juan R Tang[address] [place] [address] Lab Director: Michael Meyer MD Mycoplas.pneumoniae Not detected Normal [facility] Comment on above: Result Comment: Perf ormed by multiplexed nucleic acid assay. Performed By: #### R AIR FORCE SENIOR OFFICER ####[facility] [address] [place] [address] Lab Director: Juan R Tang[address] [place] [address] Lab Director: Michael Meyer MD Parainfluenza 1 Not detected Normal [facility] Comment on above: Performed By: #### R AIR FORCE SENIOR OFFICER ####[facility] [address] [place] [address] Lab Director: Juan R Tang[address] [place] [address] Lab Director: Michael Meyer MD Parainfluenza 2 Not detected Normal [facility] Comment on above: Performed By: #### R AIR FORCE SENIOR OFFICER ####[facility] [address] [place] [address] Lab Director: Juan R Tang[address] [place] [address] Lab Director: Michael Meyer MD Parainfluenza 3 Not detected Normal [facility] Comment on above: Performed By: #### R AIR FORCE SENIOR OFFICER ####[facility] [address] [place], [place] [phone])[phone] Director: Juan R [facility] , [place] 8203[address] Lab Director: Michael Meyer MD Parainfluenza 4 Not detected Normal [facility] Comment on above: Performed By: #### R AIR FORCE SENIOR OFFICER ####[facility] [address] [place], [place] [phone] Director: Juan R Tang[address] [place] [address] Lab Director: Michael Meyer MD Resp Syncytial Virus Not detected Normal [facility] Comment on above: Performed By: #### R AIR FORCE SENIOR OFFICER ####[facility] [address] [place], [place] [phone])[phone] Director: Juan R Tang[address] [place] [address] Lab Director: Michael Meyer MD Rhino/Enterovirus Not detected Normal [facility] Comment on above: Performed By: #### R AIR FORCE SENIOR OFFICER ####[facility] [address] [place], [place] [phone])[phone] Director: Juan R Tang[address] [place] [address] Lab Director: Michael Meyer MD SARS-CoV-2 (COVID-19) RNA LYNDON+probe Ql (Unsp spec) Detected Abnormal [facility] Comment on above: Result Comment: Resu lts reported to the appropriate Health Department Performed By: #### R AIR FORCE SENIOR OFFICER ####[facility] [address] [place], [place] [id number])[phone] Director: Juan R Tang[address] [place] [address] Lab Director: Michael Meyer MD Resp Viral Panelon 1 Source: .NASOPHARYNGEAL SWAB Normal [facility] Comment on above: Performed By: #### R AIR FORCE SENIOR OFFICER ####[facility] [address] [place], [place] [phone])[phone] Director: Juan R Tang[address] [place] [address] Lab Director: Michael Meyer MD Influenza A H1 NOT REPORTED Normal [facility] Comment on above: Performed By: #### R AIR FORCE SENIOR OFFICER ####[facility] [address] [place], [place] [phone] Director: Juan R Tang[address] [place] [address] Lab Director: Michael Meyer MD Influenza A H1-2009 NOT REPORTED Normal [facility] Comment on above: Performed By: #### R AIR FORCE SENIOR OFFICER ####[facility] [address] [place], [place] [id number])[phone] Director: Juan R Tang[address] [place] [address] Lab Director: Michael Meyer MD Influenza A H3 NOT REPORTED Normal [facility] Comment on above: Performed By: #### R AIR FORCE SENIOR OFFICER ####[facility] [address] [place] [address] Lab Director: Juan R Tang, [facility] [place] [address] , [place] [id number] Lab Director: Michael Meyer MD No Panel Informationon 09-[address] [facility] EXAMINATION: THREE XRAY VIEWS OF THE RIGHT ANKLE; THREE XRAY VIEWS OF THE LEFT FOOT 09/13/2021 9:16 am COMPARISON: None. HISTORY: ORDERING SYSTEM PROVIDED HISTORY: Pain TECHNOLOGIST PROVIDED HISTORY: Pain FINDINGS: No acute fracture demonstrated. 2 threaded screws noted medial malleolus from repair prior injury. Alignment anatomic. Small plantar and dorsal calcaneal spurs present. Msii-wz-egztadgk degenerative change primarily midfoot. Overall alignment anatomic. Soft tissues unremarkable. [facility] Jeronimo Art DO - 09/13/2021 EXAMINATION: THREE XRAY VIEWS OF THE RIGHT ANKLE; THREE XRAY VIEWS OF THE LEFT FOOT 09/13/2021 9:16 am COMPARISON: None. HISTORY: ORDERING SYSTEM PROVIDED HISTORY: Pain TECHNOLOGIST PROVIDED HISTORY: Pain FINDINGS: No acute fracture demonstrated. 2 threaded screws noted medial malleolus from repair prior injury. Alignment anatomic. Small plantar and dorsal calcaneal spurs present. Vsws-lq-taujkrvt degenerative change primarily midfoot. Overall alignment anatomic. Soft tissues unremarkable. IMPRESSION: No acute findings. [facility] Work Phone: [facility] Work Phone: No acute findings. [facility] EXAMINATION: THREE XRAY VIEWS OF THE RIGHT FOOT; THREE XRAY VIEWS OF THE LEFT ANKLE 09/13/2021 9:14 am COMPARISON: None. HISTORY: ORDERING SYSTEM PROVIDED HISTORY: pain TECHNOLOGIST PROVIDED HISTORY: pain FINDINGS: No acute fracture demonstrated. Alignment is anatomic. 2 threaded screws noted within the medial malleolus. Hlju-ox-cxzhozsh degenerative change primarily midfoot. Small plantar and dorsal calcaneal spurs present. Soft tissues unremarkable. [facility] Jeronimo Art DO - 09/13/2021 EXAMINATION: THREE XRAY VIEWS OF THE RIGHT FOOT; THREE XRAY VIEWS OF THE LEFT ANKLE 09/13/2021 9:14 am COMPARISON: None. HISTORY: ORDERING SYSTEM PROVIDED HISTORY: pain TECHNOLOGIST PROVIDED HISTORY: pain FINDINGS: No acute fracture demonstrated. Alignment is anatomic. 2 threaded screws noted within the medial malleolus. Hfuz-gr-iaaqloce degenerative change primarily midfoot. Small plantar and dorsal calcaneal spurs present. Soft tissues unremarkable. IMPRESSION: No acute findings. [employer] Phone: No Panel InformationOrdered By: Jeronimo Art on 09-13-2021 [employer] Phone: XR ANKLE LEFT (MIN 3 VIEWS)o n 09-13-2021 XR ANKLE LEFT (MIN 3 VIEWS) EXAMINATION: THREE XRAY VIEWS OF THE RIGHT FOOT; THREE XRAY VIEWS OF THE LEFT ANKLE 09/13/2021 9:14 am COMPARISON: None. HISTORY: ORDERING SYSTEM PROVIDED HISTORY: pain TECHNOLOGIST PROVIDED HISTORY: pain FINDINGS: No acute fracture demonstrated. Alignment is anatomic. 2 threaded screws noted within the medial malleolus. Rslr-nr-kfnyiqcu degenerative change primarily midfoot. Small plantar and dorsal calcaneal spurs present. Soft tissues unremarkable. IMPRESSION: No acute findings. Interpreted by: Jeronimo Art DO Signed by: Jeronimo Art DO 09/13/21 Final result Normal [facility] Radiology Study observation (narrative) [employer] Phone: XR ANKLE RIGHT (MIN 3 VIEWS) [...] Small plantar and dorsal calcaneal spurs present. Wfps-zm-beygjeqy degenerative change primarily midfoot. Overall alignment anatomic. Soft tissues unremarkable. IMPRESSION: No acute findings. Interpreted by: Jeronimo Art DO Signed by: Jeronimo Art DO 09/13/21 Final result Normal [facility] Radiology Study observation (narrative) [employer] Phone: XR FOOT LEFT (MIN 3 VIEWS)on [...] Small plantar and dorsal calcaneal spurs present. Xyyo-mj-mgpnoevg degenerative change primarily midfoot. Overall alignment anatomic. Soft tissues unremarkable. IMPRESSION: No acute findings. Interpreted by: Jeronimo Art DO Signed by: Jeronimo Art DO 09/13/21 Final result Normal [facility] Radiology Study observation (narrative) [employer] Phone: XR FOOT RIGHT (MIN 3 VIEWS)o n 09-13-2021 XR FOOT RIGHT (MIN 3 VIEWS) EXAMINATION: THREE XRAY VIEWS OF THE RIGHT FOOT; THREE XRAY VIEWS OF THE LEFT ANKLE 09/13/2021 9:14 am COMPARISON: None. HISTORY: ORDERING SYSTEM PROVIDED HISTORY: pain TECHNOLOGIST PROVIDED HISTORY: pain FINDINGS: No acute fracture demonstrated. Alignment is anatomic. 2 threaded screws noted within the medial malleolus. Rjij-us-zzzpkpuf degenerative change primarily midfoot. Small plantar and dorsal calcaneal spurs present. Soft tissues unremarkable. IMPRESSION: No acute findings. Interpreted by: Jeronimo Art DO Signed by: Jeronimo Art DO 09/13/21 Final result Normal [facility] Radiology Study observation (narrative) [employer] Phone: XR ABDOMEN (KUB) (SINGLE AP VIEW)on [...] Kerri Scott MD 05/08/21 Final result Normal [facility] XR ABDOMEN (KUB) (SINGLE AP VIEW)Ordered By: Quincy Interiano on 05-08-2021 Nonobstructive bowel gas pattern. No radiodensities diagnostic of nephroliths. [employer] Phone: EXAMINATION: ONE SUPINE XRAY VIEW(S) OF THE ABDOMEN 05/08/2021 10:35 am COMPARISON: 01 May 2021 HISTORY: ORDERING SYSTEM PROVIDED HISTORY: Microscopic hematuria FINDINGS: The bowel gas pattern is non obstructive. No organomegaly, free air or abnormal calcifications are noted. Mild levo scoliotic curvature is present. [facility] Phone: Luther, pn Incoming Radiant Results From [employer] - 05/08/2021 2:06 PM EDT EXAMINATION: ONE SUPINE XRAY VIEW(S) OF THE ABDOMEN 05/08/2021 10:35 am COMPARISON: 01 May 2021 HISTORY: ORDERING SYSTEM PROVIDED HISTORY: Microscopic hematuria FINDINGS: The bowel gas pattern is non obstructive. No organomegaly, free air or abnormal calcifications are noted. Mild levo scoliotic curvature is present. IMPRESSION: Nonobstructive bowel gas pattern. No radiodensities diagnostic of nephroliths. [employer]u Phone: Piictu Phone: No Panel InformationOrdered By: Fatuma Sanchez on 05-01-2021 1. No acute osseous abnormality of the right ankle. Posttraumatic and postsurgical changes as above. Mild tibiotalar joint osteoarthritis. 2. Acute osseous abnormality of the right foot. Chronic appearing well-defined erosion or subchondral cyst at the base of the 3rd metatarsal without associated joint space loss. This is a nonspecific finding. [employer] Phone: EXAMINATION: THREE XRAY VIEWS OF THE [...] base of the 3rd metatarsal is nonspecific. [facility] Phone: Luther, pn Incoming Radiant Results From [employer] - 05/01/2021 5:46 PM EDT EXAMINATION: THREE [...] space loss. This is a nonspecific finding. [employer] Phone: Piictu Phone: Unremarkable left wrist/left hand series. There are no plain radiographic findings to suggest an active synovial process of bone as rheumatoid arthritis [employer] Phone: EXAMINATION: 2 XRAY VIEWS OF THE LEFT WRIST; TWO XRAY VIEWS OF THE LEFT HAND 05/01/2021 11:10 am COMPARISON: None. HISTORY: ORDERING SYSTEM PROVIDED HISTORY: Seropositive rheumatoid arthritis (HCC) FINDINGS: The bones and joints are unremarkable without definite fracture, dislocation, significant degenerative/erosive change, radiopaque foreign body, abnormal soft tissue calcification or bony destructive lesion [employer] Phone: [place], [facility] Incoming Radiant Results From [employer] - 05/01/2021 11:26 AM EDT EXAMINATION: 2 XRAY VIEWS OF THE LEFT WRIST; TWO XRAY VIEWS OF THE LEFT HAND 05/01/2021 11:10 am COMPARISON: None. HISTORY: ORDERING SYSTEM PROVIDED HISTORY: Seropositive rheumatoid arthritis ([facility]) FINDINGS: The bones and joints are unremarkable without definite fracture, dislocation, significant degenerative/erosive change, radiopaque foreign body, abnormal soft tissue calcification or bony destructive lesion IMPRESSION: Unremarkable left wrist/left hand series. There are no plain radiographic findings to suggest an active synovial process of bone as rheumatoid arthritis [employer] Phone: Piictu Phone: XR ABDOMEN (KUB) (SINGLE AP VIEW)on [...] Linda Albarran MD 05/01/21 Final result Normal [facility] XR ABDOMEN (KUB) (SINGLE AP VIEW)Ordered By: Quincy Interiano on 05-01-2021 No significant radiographic abnormality in the abdomen. [employer] Phone: EXAMINATION: ONE SUPINE XRAY VIEW(S) OF THE ABDOMEN 05/01/2021 10:51 am COMPARISON: None. HISTORY: ORDERING SYSTEM PROVIDED HISTORY: Pain FINDINGS: Nonobstructive bowel gas pattern. No abnormal calcifications overlying the gallbladder urinary tract. No mass effect. Osseous structures grossly intact. [employer] Phone: [place], [facility] Incoming Radiant Results From [employer] - 05/01/2021 11:21 AM EDT EXAMINATION: ONE SUPINE XRAY VIEW(S) OF THE ABDOMEN 05/01/2021 10:51 am COMPARISON: None. HISTORY: ORDERING SYSTEM PROVIDED HISTORY: Pain FINDINGS: Nonobstructive bowel gas pattern. No abnormal calcifications overlying the gallbladder urinary tract. No mass effect. Osseous structures grossly intact. IMPRESSION: No significant radiographic abnormality in the abdomen. [employer] Phone: Piictu Phone: XR ANKLE LEFT (MIN 3 VIEWS)o [...] Clarissa Gomez MD 05/01/21 Final result Normal [facility] XR ANKLE LEFT (MIN 3 VIEWS)O rdered By: Fatuma Sanchez on 05-01-2021 Moderate calcaneal spurring [employer] Phone: EXAMINATION: THREE XRAY VIEWS OF THE LEFT ANKLE 05/01/2021 11:12 am COMPARISON: None. HISTORY: ORDERING SYSTEM PROVIDED HISTORY: Seropositive rheumatoid arthritis (HCC) FINDINGS: There is moderate spurring of the superior aspect of the os calcis. The bones and joints are otherwise unremarkable without definite effusion, acute fracture, dislocation radiopaque foreign body or bony destructive lesion [employer] Phone: [place], [facility] Incoming Radiant Results From [employer] - 05/01/2021 11:21 AM EDT EXAMINATION: THREE [...] bony destructive lesion IMPRESSION: Moderate calcaneal spurring [employer] Work Phone: [facility] Work Phone: XR ANKLE RIGHT (MIN 3 [...] Michael Caceres MD 05/01/21 Final result Normal [facility] XR FOOT LEFT (2 VIEWS)on XR FOOT [...] Clarissa Gomez MD 05/01/21 Final result Normal [facility] XR FOOT LEFT (2 VIEWS)Ordere d By: Fatuma Sanchez on 05-01-2021 Mild degenerative changes There are no plain radiographic findings to suggest an active synovial process of bone as rheumatoid arthritis [employer] Phone: EXAMINATION: TWO XRA Y VIEWS OF [...] radiopaque foreign body or bony destructive lesion [employer] Phone: [place], [facility] Incoming Radiant Results From [employer] - 05/01/2021 11:29 AM EDT EXAMINATION: TWO [...] synovial process of bone as rheumatoid arthritis [employer] Phone: Piictu Phone: XR FOOT RIGHT (2 VIEWS)on XR [...] Michael Caceres MD 05/01/21 Final result Normal [facility] XR HAND LEFT (2 VIEWS)on XR HAND [...] Clarissa Gomez MD 05/01/21 Final result Normal [facility] XR HAND RIGHT (2 VIEWS)on XR HAND [...] Clarissa Gomez MD 05/01/21 Final result Normal [facility] XR HAND RIGHT (2 VIEWS)Order ed By: Fatuma Sanchez on 05-01-2021 Unremarkable two-vie w right hand series. There are no definite plain radiographic findings to suggest an active synovial process of bone as rheumatoid arthritis [employer] Phone: EXAMINATION: TWO XRA Y VIEWS OF THE RIGHT HAND 05/01/2021 11:12 am COMPARISON: None. HISTORY: ORDERING SYSTEM PROVIDED HISTORY: Seropositive rheumatoid arthritis (HCC) FINDINGS: The bones and joints are unremarkable without definite fracture, dislocation, significant degenerative/erosive change, radiopaque foreign body, abnormal soft tissue calcification or bony destructive lesion [employer] Phone: [place], [facility] Incoming Radiant Results From [employer] - 05/01/2021 11:24 AM EDT EXAMINATION: TWO [...] synovial process of bone as rheumatoid arthritis [employer] Phone: Piictu Phone: XR WRIST LEFT (2 VIEWS)on XR [...] Clarissa Gomez MD 05/01/21 Final result Normal [facility] XR WRIST RIGHT (2 VIEWS)on 0 05-01-2021 [...] Clarissa Gomez MD 05/01/21 Final result Normal [facility] XR WRIST RIGHT (2 VIEWS)Orde red By: Fatuma Sanchez on 05-01-2021 Unremarkable two-vie w right wrist series [employer] Phone: EXAMINATION: 2 XRAY VIEWS OF THE RIGHT WRIST; 05/01/2021 11:11 am COMPARISON: None. HISTORY: ORDERING SYSTEM PROVIDED HISTORY: Seropositive rheumatoid arthritis (HCC) FINDINGS: The bones and joints are unremarkable without definite fracture, dislocation, significant degenerative/erosive change, radiopaque foreign body or bony destructive lesion [employer] Phone: Luther, [facility] Incoming Radiant Results From [employer] - 05/01/2021 11:23 AM EDT EXAMINATION: 2 XRAY VIEWS OF THE RIGHT WRIST; 05/01/2021 11:11 am COMPARISON: None. HISTORY: ORDERING SYSTEM PROVIDED HISTORY: Seropositive rheumatoid arthritis (HCC) FINDINGS: The bones and joints are unremarkable without definite fracture, dislocation, significant degenerative/erosive change, radiopaque foreign body or bony destructive lesion IMPRESSION: Unremarkable two-view right wrist series [employer] Phone: Piictu Phone: XR WRIST RIGHT (MIN 3 VIEWS) [...] Ebenezer Pepe MD 03/01/21 Final result Normal [facility] XR WRIST RIGHT (MIN 3 VIEWS) Ordered By: Apryl Tucker on 03-01-2021 Unremarkable right wrist. [employer] Phone: EXAMINATION: 3 XRAY VIEWS OF THE [...] degenerative findings. No appreciable soft tissue abnormality. [employer] Phone: Luther, pn Incoming Radiant Results From [employer] - 03/01/2021 7:52 PM EDT EXAMINATION: 3 [...] soft tissue abnormality. IMPRESSION: Unremarkable right wrist. [employer] Phone: [facility] Work Phone: XR KNEE RIGHT (1-2 VIEWS)on [...] MD 11/07/20 Recipients: Shahrzad Hensley APRN - CYBER SECURITY SPECIALIST - (authorizing provider) Final result Normal [facility] XR KNEE RIGHT (3 VIEWS)on Joint effusion witho ut acute osseous abnormality. [facility] [place] EXAMINATION: THREE XRAY VIEWS OF THE RIGHT [...] effusion. The periarticular soft tissues are unremarkable. [place], [place] Luther, [facility] Incoming Radiant Results From [employer] - 09/04/2019 6:08 PM EST EXAMINATION: THREE [...] IMPRESSION: Joint effusion without acute osseous abnormality. [facility] [place] [facility] (MIN 3 VIEWS)on 05-12-2019 No acute osseous abnormality. [facility] [place] EXAMINATION: THREE XRAY VIEWS OF THE LEFT HAND 05/12/2019 12:22 pm COMPARISON: November 12, 2018 HISTORY: ORDERING SYSTEM PROVIDED HISTORY: pain TECHNOLOGIST PROVIDED HISTORY: pain FINDINGS: There is no evidence of acute fracture. There is normal alignment. No acute joint abnormality. No focal osseous lesion. No focal soft tissue abnormality. [facility] [place] [facility], [facility] Incoming Radiant Results From [employer] - 05/12/2019 12:48 PM EDT EXAMINATION: THREE XRAY VIEWS OF THE LEFT HAND 05/12/2019 12:22 pm COMPARISON: November 12, 2018 HISTORY: ORDERING SYSTEM PROVIDED HISTORY: pain TECHNOLOGIST PROVIDED HISTORY: pain FINDINGS: There is no evidence of acute fracture. There is normal alignment. No acute joint abnormality. No focal osseous lesion. No focal soft tissue abnormality. IMPRESSION: No acute osseous abnormality. [facility] [place] MRI BRAIN WO CONTRASTon 04-03 MRI BRAIN [...] Tiffanie Hughes MD 04/24/19 Final result Normal [facility] MRI CERVICAL SPINE WO CONTRA STon 04-24-2019 [...] Tiffanie Hughes MD 04/24/19 Final result Normal [facility] Vital Signs Date Time Vital Sign Value Performing Clinician Robson henry 05-15-2024 14:12-0400 Blood Pressure Location KartelaL [facility] 05-15-2024 14:12-0400 Diastolic blood pressure 76 mm[Hg] David NILL [facility] 05-15-2024 14:12-0400 Heart rate 76 /min David NILL [facility] 05-15-2024 14:12-0400 Respiratory rate 16 /min David NILL [facility] 05-15-2024 14:12-0400 Systolic blood pressure 118 mm[Hg] David NILL [facility] 09-13-2021 08:22-0500 Diastolic blood pressure 86 mm[Hg] Francis Pinto DO Work Phone: [facility] 09-13-2021 08:22-0500 Systolic blood pressure 147 mm[Hg] Francis Pinto DO Work Phone: [employer] 09-13-2021 08:20-0500 Body mass index (BMI) [Ratio] 37.2 kg/m2 Francis Melendrezrov DO Work Phone: [employer] 09-13-2021 08:20-0500 Body temperature 97.39 [degF] Francis Melendrezrov DO Work Phone: [employer] 09-13-2021 08:20-0500 Body weight 95.25 kg Francis Melendrezrov DO Work Phone: [employer] 09-13-2021 08:20-0500 Heart rate 85 /min Francis Melendrezrov DO Work Phone: [employer] 09-13-2021 08:20-0500 Respiratory rate 16 /min Francis Melendrezrov DO Work Phone: [employer] 09-13-2021 08:20-0500 SaO2% (BldA) [Mass fraction] 99 % Francis Melendrezrov [employer] Work Phone: [employer] 03-01-2021 18:28-0400 Diastolic blood pressure 96 mm[Hg] [employer] Work Phone: [employer] Work Phone: 03-01-2021 18:28-0400 Systolic blood pressure 151 mm[Hg] Clari Mikala Work Phone: [employer] Work Phone: 03-01-2021 18:26-0400 Body temperature 98.71 [degF] [employer] Work Phone: [employer] Work Phone: 03-01-2021 18:26-0400 Heart rate 70 /min [employer] Work Phone: [employer] Work Phone: 03-01-2021 18:26-0400 Respiratory rate 18 /min [employer] Work Phone: [employer] Work Phone: 03-01-2021 18:26-0400 SaO2% (BldA) [Mass fraction] 98 % Clari Dumont Work Phone: [facility] Work Phone: 09-06-2019 20:00-0500 Body Temperature 97.9 [degF] Oscar Claytonimes [facility] [facility] [place] 09-06-2019 20:00-0500 BP Diastolic 100 mm[Hg] [facility] [place] 09-06-2019 20:00-0500 BP Systolic 154 mm[Hg] [facility] [place] 09-06-2019 20:00-0500 Pulse (Heart Rate) 89 /min [facility] [place] 09-06-2019 20:00-0500 Pulse Oximetry 97 % [facility] [place] 09-06-2019 20:00-0500 Respiratory Rate 19 /min Oscar Claytonimes [facility] [place] 09-04-2019 17:38-0500 BMI (Body Mass Index) 36.49 kg/m2 David Huitronpatrick [facility], [place] 09-04-2019 17:38-0500 Body Temperature 98.2 [degF] David Perez [facility], [place] 09-04-2019 17:38-0500 Body weight 93.44 kg David Huitronpatrick [facility], [place] 09-04-2019 17:38-0500 BP Diastolic 94 mm[Hg] [facility] [place] 09-04-2019 17:38-0500 BP Systolic 142 mm[Hg] [facility] [place] 09-04-2019 17:38-0500 Pulse (Heart Rate) 87 /min David Carter [facility], [place] 09-04-2019 17:38-0500 Pulse Oximetry 99 % David Perez [facility], [place] 09-04-2019 17:38-0500 Respiratory Rate 14 /min David Carter [facility], [place] 05-12-2019 12:15-0400 Body Temperature 98.01 [degF] Clari Dumont [facility], [place] 05-12-2019 12:14-0400 BP Diastolic 85 mm[Hg] [facility] , [place] 05-12-2019 12:14-0400 BP Systolic 152 mm[Hg] [facility] [place] 05-12-2019 12:14-0400 Pulse (Heart Rate) 87 /min Clari Dumont [facility], [place] 05-12-2019 12:14-0400 Pulse Oximetry 96 % Clari Dumont [facility] , [place] 05-12-2019 12:14-0400 Respiratory Rate 16 /min Clari Dumont [facility], [place] Encounters Encounter Date Encounter Type Care Provider Facility Start: 07-18-2024 End: 07-18-2024 Bamboo flowsheet Ruth Ann Gonzalez [employer] Work Phone: [facility] Start: 07-18-2024 End: 07-18-2024 Bamboo flowsheet Ruth Ann Gonzalez [employer] Work Phone: [facility] Start: 07-18-2024 End: 07-18-2024 Office outpatient visit 25 minutes Ruth Ann Gonzalez [employer] Work Phone: [facility] Comment on above: Low back pain, unspe cified back pain laterality, unspecified chronicity, unspecified whether sciatica present (Primary Dx); Bilateral sciatica Start: 07-18-2024 End: 07-18-2024 ambulatory RUTH ANN GONZALEZ Not Available Start: 05-15-2024 End: 05-15-2024 ambulatory ISABELLA KAPLAN Facility:[facility] Start: 05-15-2024 End: 05-15-2024 Patient encounter procedure David DIAMOND [facility] [place] Start: 01-24-2024 End: 01-24-2024 ambulatory WILL SANTANA [...] Start: 08-22-2023 ambulatory ISABELLA KAPLAN Facility: [facility] [place] Start: 08-12-2023 ambulatory Lakshmi Ruiz [facility] Start: 07-06-2022 End: 07-07-2022 ambulatory ISABELLA KAPLAN Facility:[facility] Start: 05-21-2022 End: 05-22-2022 ambulatory ISABELLA KAPLAN Facility:[facility] Start: 03-19-2022 End: 03-27-2022 ambulatory ISABELLA KAPLAN Facility:[facility] Start: 02-22-2022 End: 02-23-[address] APRYL RIOS Facility:[facility] Start: 09-23-2021 End: 09-23-2021 [facility] Start: 09-21-2021 End: 09-21-2021 Emergency department patient visit CLARI WOLFHMANN [facility] Start: 09-13-2021 End: 09-13-2021 Emergency department patient visit FRANCIS Bacilio MELENDREZLilly [facility] Start: 09-13-2021 End: 09-13-2021 [facility] ED Comment on above: Sprain of right foot , initial encounter (Primary Dx); Sprain of left ankle, unspecified ligament, initial encounter Start: 05-08-2021 End: 05-11-2021 ambulatory [facility] Start: 05-08-2021 End: 05-10-2021 Subsequent hospital visit by physician Karoline Varela 4 [facility] Comment on above: Microscopic hematuri a; Flank pain; Hydronephrosis with ureteral calculus Start: 05-01-2021 End: 05-04-2021 ambulatory [facility] Start: 05-01-2021 End: 05-03-2021 Subsequent hospital visit by physician Karoline Meek Dr Room 2 [facility] Comment on above: Seropositive rheumat oid arthritis (HCC) Pain Start: 03-01-2021 End: 03-01-2021 [facility] Start: 03-01-2021 End: 03-01-2021 Emergency department patient visit Clari Wolfhmann Work Phone: [facility] ED Comment on above: Strain of right wris t, initial encounter (Primary Dx) Start: 11-07-2020 End: 11-10-2020 ambulatory SHAHRZAD HENSLEY [facility] Start: 11-07-2020 End: 11-09-2020 Subsequent hospital visit by physician Clari Wolfhmann [facility] Start: 09-06-2019 End: 09-06-2019 Emergency department patient visit Oscar Zuniga Work Phone: [facility] ED Comment on above: Sprain of collateral ligament of right knee, initial encounter (Primary Dx) Start: 09-04-2019 End: 09-04-2019 Emergency department patient visit David Perez [facility] ED Comment on above: Injury of right knee , initial encounter (Primary Dx); Effusion of right knee joint Start: 05-12-2019 End: 05-12-2019 Emergency department patient visit [facility] ED Comment on above: Contusion of left coles nd including fingers, initial encounter (Primary Dx) Start: 04-20-2019 End: 04-20-2019 Emergency department patient visit JEAN HARPER [facility] Start: 07-29-2017 End: 07-30-2017 Ambulatory Nilo Mendez Facility:[facility] Procedures Date Procedure Procedure Detail [...] DTaP/Tdap/Td vaccine (2 - Td or Tdap) [facility] Start: 11-28-2027 DTaP/Tdap/Td vaccine (2 - Td) DTaP/Tdap/Td vaccine (2 - Td) [place], [place] Start: 08-01-2024 End: 08-01-2024 Patient encounter procedure 08/01/2024 8:00 AM EDT Office Visit [facility] [address] [place] [address] Ruth Ann Gonzalez W[employer] W[employer]ER [address] [place] [address] [facility] Start: 07-18-2024 End: 07-18-2024 Patient encounter procedure 07/18/2024 8:45 AM EDT Office Visit [facility] [address] [place] [address] Ruth Ann Gonzalez, [employer] [address] [place] [address] Low back pain, unspecified back pain laterality, unspecified chronicity, unspecified whether sciatica present (Primary Dx) [facility] Comment on above: Low back pain, unspe cified back pain laterality, unspecified chronicity, unspecified whether sciatica present (Primary Dx) Start: 11-25-2021 End: 11-25-2021 Patient encounter procedure 11/25/2021 Office Visit Rheumatology Fatuma Sanchez MD [address] [place] [address] [facility] Start: 06-24-2021 End: 06-24-2021 Patient encounter procedure 06/24/2021 Office Visit Rheumatology Fatuma Sanchez MD [address] [place] [address] [phone] [facility] Start: 06-03-2021 Influenza vaccination [facility] Start: 2021 Lipid panel Lipid screen [facility] Start: 06-03-2020 Influenza vaccination Flu vaccine (# 1) [place], [place] Start: 06-03-2019 Influenza vaccination Flu vaccine (# 1) [place], [place] Start: 2016 Diabetes screen Diabetes screen [facility] Start: 2000 DTaP/Tdap/Td vaccine (1 - Tdap) DTaP/Tdap/Td vaccine (1 - Tdap) [place], [place] Start: 1996 HIV screen HIV screen [place], [place] Start: 1996 HIV screening HIV screen [facility] Start: 1994 Varicella Vaccine (1 of 2 - 13+ 2-dose series) Varicella Vaccine (1 of 2 - 13+ 2-dose series) [place], [place] Start: 1993 COVID-19 Vaccine (1) COVID-19 Vaccin e (1) [facility] Start: 1992 DTaP/Tdap/Td vaccine (1 - Tdap) DTaP/Tdap/Td vaccine (1 - Tdap) [place] Start: 1982 Varicella Vaccine (1 of 2 - 2-dose childhood series) Varicella Vaccine (1 of 2 - 2-dose childhood series) [facility] Start: 1981 Hepatitis C screening Hepatitis C sc reen [facility] End: 05-12-2019 Splint application Splint application Procedures STAT One Time for 1 Occurrences starting 05/12/2019 until 05/12/2019 [place], [place] Comment on above: One Time for 1 Occur rences starting 05/12/2019 until 05/12/2019 Immunizations Immunization Date Immunization Notes Care Provider Fa cility 10-22-2019 influenza, injectable, quadrivalent, preservative free Ruth Ann Gonzalez W[employer] Work Phone: [facility] 11-28-2017 tetanus toxoid, reduced diphtheria toxoid, and acellular pertussis vaccine, adsorbed Ruth Ann Gonzalez WASHCOAT WIPER Work Phone: [facility] 07-14-2010 influenza virus vaccine, whole virus Clari Dumont [place], [place] NEGATED: Highlighted row has not occurred!05-11-2021 SARS-CoV-2 (COVID-19) Ad26 vaccine, recombinant David NILL [facility] Payers Date Payer Category Payer [facility] BCBS .[id number] 2024 Unknown [id number] 2022 Medicaid [id number] 2020 Unknown [id number] 10.04.840.861992.1.13.239.2. 7.3.516762.315 2019 Unknown [id number] 2019 Unknown [facility] [place] [id number] xxxxxxxxx 2019-Present [address] [address] [place] [address] xxxxxxxxx 1.2.840.476597.1.13.239.2. 7.3.378144.315 1981 Unknown [id number] 2.16.840.1.770731.3.579.2. 175 1981 Unknown [id number] 2.16.840.1.977676.3.579.2. 173 1981 Unknown [id number] 2.16.840.1.765172.3.579.2. 173 1981 Unknown [id number] 2.16.840.1.484358.3.579.2. 173 1981 Unknown [id number] 2.16.840.1.727153.3.579.2. 173 1981 Unknown [id number] 2.16.840.1.820239.3.579.2. 173 1981 Unknown [id number] 2.16.840.1.053118.3.579.2. 173 1981 Unknown [id number] 2.16.840.1.341292.3.579.2. 173 1981 Unknown [id number] 2.16.840.1.155549.3.579.2. 173 1981 Unknown [id number] 2.16.840.1.397428.3.579.2. 173 1981 Unknown [id number] 2.16.840.1.621829.3.579.2. 173 1981 Unknown [id number] 2.16.840.1.559426.3.579.2. 173 1981 Unknown [id number] 2.16.840.1.033200.3.579.2. 173 1981 Unknown [id number] 2.16.840.1.618701.3.579.2. 173 1981 Unknown [id number] 2.16.840.1.410569.3.579.2. 173 1981 Unknown [id number] 2.16.840.1.842722.3.579.2. 173 1981 Unknown [id number] 2.16.840.1.825073.3.579.2. 173 1981 Unknown [id number] 2.16.840.1.749116.3.579.2. 173 1981 Unknown [id number] 2.16840.1.374127.3.579.2. 173 1981 Unknown [id number] 2.16840.1.609069.3.579.2. 173 1981 Unknown [id number] 2.16840.1.985152.3.579.2. 593 1981 Unknown [id number] 2.16840.1.954832.3.579.2. 593 1981 Unknown [id number] 2.16840.1.322606.3.579.2. 593 1981 Unknown [id number] 2.16840.1.282378.3.579.2. 593 1981 Unknown [id number] 2.16840.1.788711.3.579.2. 727 1981 Unknown [id number] 2.16.840.1.616150.3.579.2. 727 1981 Unknown [id number] 2.16.840.1.020104.3.579.2. 1259 1981 Unknown [id number] 2.16.840.1.681158.3.579.2. 1259 1981 Unknown [id number] 2.16.840.1.563522.3.579.2. 1259 1981 Unknown [id number] 2.16.840.1.785950.3.579.2. 9 1981 Unknown [id number] 2.16.840.1.058855.3.579.2. 1258 1981 Unknown [id number] 2.16.840.1.176900.3.579.2. 1258 1981 Unknown [id number] 2.16.840.1.770431.3.579.2. 1258 1981 Unknown [id number] 2.16.840.1.280248.3.579.2. 1258 1981 Unknown [id number] 2.16.840.1.196790.3.579.2. 9 1959 Unknown [id number] 1.2.840.501429.1.13.239.2. 7.3.192858.315 1959 Unknown [id number] Social History Date Type Detail Facility Start: 09-04-2019 End: 02-10-2023 Tobacco smoking status NHIS Never smoker [facility] Start: 09-04-2019 End: 03-27-2021 Alcohol intake Current non-drinker of alcohol (finding) [place], [place] Start: 10-16-2017 Alcohol Comment [place] Start: 1980 Sex Assigned At Not on file [place], [place] Start: 05-12-2019 End: 01-11-2024 Alcohol intake No [facility] Start: 09-06-2019 End: 02-10-2023 Tobacco use and exposure Never used [place], [place] Exposure to SARS-CoV -2 (event) Not sure [facility] Start: 03-27-2021 Alcohol Comment very rare Emma parikh Work Phone: Tobacco smoking status Never [facility] [place] Start: 01-11-2024 End: 07-18-2024 Alcoholic beverage intake Current drinker of alcohol (finding) [facility] Start: 01-11-2024 End: 07-18-2024 Alcoholic beverage intake [facility] Start: 02-10-2023 Alcohol Comment caffeine intak e: 3-4 cups per day, soda [facility] Start: 10-03-2023 Gender identity Identifies as male gender (finding) [facility] Functional Status Date Assessment Result Facility 05-15-2024 Functional Status N/A [facility] [place] Clinical Notes 09-13-2021 to 07-18-2024 Ruth Ann Gonzalez WASHCOAT WIPER - 07/18/2024 8:45 AM EDTInstructionsAttachments Note Date [...] has a new job working at a [employer], 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 [place]: XR NOMS 11/28/23, [...] activities as tolerated documented in this encounter [facility] 05-15-2024 Note General Surgery Offi ce/Clinic Note [...] qualifying data Procedure/Surgica (more content not included)... [facility] Comment on above: Result Comment: Elec tronically Signed By: DARA FARIAS, David Loera\.br\Date and Time Signed: 05/15/24 14:59 EDT 11-11-2023 Note TC to Home number fo r WASHCOAT WIPER referral for: Elevated Rheumatoid Factor Referral in social media job titles Spoke with son and provider Rheum clinic call back number. Son states he will give his father the message to return call. [facility] 07-06-2022 Note CONSULTATION CONSULTATION DATE: 07/06/2022 [...] his work. 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 He has low back pain [...] in office. CC: Chen Kaplan CNP [facility] 09-13-2021 Hospital Discharge instructions Francis Pinto DO - 09/13/2021 Return to the Emergency Department immediately if you develop worsening pain, numbness, weakness , or you have any other concerns. Please follow up with your orthopaeidc doctor in 2-3 days. Ice, elevate Use crutches The following attachments cannot be sent through Care Everywhere.Ankle Sprain ([place])documented in this encounter [employer] Phone: Evaluation + Plan note No data available for this section [facility] Evaluation note Diagnosis Strain of right wrist, initial encounter- Primary documented in this encounter [employer] Phone: evaluation note* Diagnosis Seropositive rheumatoid arthritis (HCC) Rheumatoid arthritis documented in this encounter [employer] Phone: evaluation note* Diagnosis Pain Generalized pain documented in this encounter [employer] Phone: evalwyurwh note* Diagnosis Microscopic hematuria Flank pain Abdominal pain, unspecified site Hydronephrosis with ureteral calculus Calculus of ureter documented in this encounter [employer] Phone: evaluation note* Diagnosis Sprain of right foot, initial encounter- Primary Sprain of left ankle, unspecified ligament, initial encounter documented in this encounter [employer] Phone: evaluation note* Diagnosis Low back pain, unspecified back pain laterality, unspecified chronicity, unspecified whether sciatica present- Primary Bilateral sciatica Sciatica documented in this encounter [facility]* Attachments The following attachments cannot be sent through Care Everywhere. * Strain or Sprain ([place]) [facility]: Hospital Discharge instructions No data available for this section [facility] Progress note No data available for this section [facility] Summary Purpose Family History No Family History Records FoundNo Family History Records FoundNo Family History Records FoundNo Family History Records FoundNo Family History Records FoundNo Family History Records Found No data available for this section No Family History Records FoundNo Family History Records Found Advance Directives No Advanced Directives Records FoundDocuments on File Type Date Recorded 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 * Finger: Bruises ([place]) documented in this encounter* Attachments The following attachments cannot be sent through Care Everywhere. * Knee Sprain ([place]) documented in this encounter Additional Source Comments (unrecognized sect ion and content) No Status Records FoundNo Status Records FoundNo Status Records FoundNo Status Records FoundNo Status Records FoundNo Status Records FoundNo Status Records FoundNo Status Records Found INFORMATION SOURCE (unrecogn ized section and content) DATE CREATED AUTHOR 03/31/2018 [facility] DATE CREATED AUTHOR AUTHOR'S ORGANIZ ATION 04/26/2019 [facility] DATE CREATED AUTHOR AUTHOR'S ORGANIZ ATION 09/23/2021 [facility] DATE CREATED AUTHOR AUTHOR'S ORGANIZ ATION 02/16/2023 [facility] DATE CREATED AUTHOR AUTHOR'S ORGANIZ ATION 08/14/2023 [facility] DATE CREATED AUTHOR AUTHOR'S ORGANIZ ATION 11/13/2023 [facility] DATE CREATED AUTHOR AUTHOR'S ORGANIZ ATION 05/16/2024 [facility] DATE CREATED AUTHOR AUTHOR'S ORGANIZ ATION 07/20/2024 [facility] EPIC Reason for Visit (unrecogniz [...] Care Teams (unrecognized sec tion and content) [employer] 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 Relationship Specialty Start Date [place] [address] PCP - General Nurse Practitioner 04/21/19 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 Relationship Specialty Start Date End Date Ac Schmid MD [address] [place] [phone] PCP - General Family Medicine 02/08/23 [place] [address] [place] [id number] Referring Physician Family Medicine 09/12/23 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 Relationship Specialty Start Date End Date Ac Schmid MD [address] [place] [phone] PCP - General Family Medicine 02/08/23 Isabella Kaplan MD [address] [place], [place] [id number] Referring Physician Family Medicine 09/12/23 FOR RECORDS [...] BE BASED ON THE PRIMARY CLINICAL RECORDS. [employer] provides no warranty or guarantee of the accuracy or completeness of information in this document.
== END 2024-09-21 09:43 | disposition home or self-care (01) ==
LOC: MRI 09:42
PROVIDERS: PCP Nurse Practitioner Family; Visit Provider Physician Assistant
DX: M51.362 Other intervertebral disc degeneration, lumbar region with discogenic back pain and lower extremity pain (principal); M54.16 Radiculopathy, lumbar region
CPT/HCPCS: 72148

== ENCOUNTER 2024-09-30 17:43 | Emergency (ER) | payer BC, SELFPAY ==
--- OUTSIDE RECORDS SUMMARY | 2024-09-30 17:48 | XMS_ITS | CCD ---
Author Organization [facility] Care Team Providers Care Digital Ad Trafficker Name Role Phone Nilo Mendez Unavailable Unavailable FRUTH, JEAN Primary Care Unavailable KENYATTA KEN Attending Unavailable CHIRRI, ARTEMIO Consulting Unavailable Mikala, Clari A Primary Care Provider [phone] Mikala, Clari A Primary Care Provider [phone] Mikala, Clari A Primary Care Provider MIKALA, [...] Unavailable MIKALA, CLARI A Primary Care Physician [phone] ISABELLA KAPLAN Referring Unavailable David DIAMOND Attending [...] (13 sources) traMADol Drug Allergy 6 Rash [facility] Penicillins (antibiotic) (13 sources) Penicillins Drug Allergy 1 Rash [facility] (7 sources) Penicillins; Translations: [penicillins] Propensity to adverse reactions to drug 1 Rash, Eruption of skin (disorder) [place] (9 sources) traMADol; Translations: [tramadol] Drug Allergy 6 Rash, Eruption of skin (disorder) [place] (1 source) Penicillin Drug Allergy 8 [facility] (2 sources) traMADol; Translations: [Ultram] Drug Allergy [facility] Repository (3 sources) Naproxen Drug Allergy 3 Rash [facility] Healthcare (3 sources) Penicillins Drug Allergy 3 Hives [facility] Healthcare Medications Current Medications Medication Drug Class(es) [...] BID, # 20 cap(s), Refills(s) 0, Pharmacy: [facility]22, 160, cm, 05/04/21 15:08:00 [...] you for choosing us for your care. [facility] Ambulatory Visit Summary Ambulatory Visit [...] for choosing us for your care. Normal [facility] Physician Referralon 023 Physician Referral [phone] 02 [id number] TIFF Normal [facility] MRI LSPINE WO CONon 05-21-20 [...] Date: 2022-05-21 18:38 Normal [facility] XR FOREIGN BODY EYEon 2021 XR FOREIGN BODY EYE EXAMINATION: XR FOREIGN BODY EYE HISTORY: Foreign body in eye COMPARISON: No relevant comparison available. FINDINGS: ORBITS: Negative for a metallic foreign body. OTHER: Negative. IMPRESSION: 1. No metallic foreign body within the orbits. Electronically authenticated by: APRYL RIOS Date: 2022-05-21 10:36 Normal [facility] XR LSPINE MIN 4 VIEWSon 02-01 XR [...] APRYL RIOS Date: 2022-02-22 11:06 Normal [facility] CBC with Diffon 09-23-2021 Abs. Basophil 0.02 k/uL Normal 0.0-0.2 [facility] Comment on above: Performed By: #### C ELOY LOPEZ, IPF ####[address] , [place] [id number] lab Director: Michael Meyer MD Abs.Imm.Granulocyte 0.02 k/uL Normal 0.00-0.30 [facility] Comment on above: Performed By: #### C ELOY LOPEZ, IPF ####[address] [place] [address] lab Director: Michael Meyer MD Abs.Neutrophil (Seg) 1.28 k/uL Low 1.50-8.10 [facility] Comment on above: Performed By: #### C ELOY LOPEZ, IPF ####[address] , [place] [phone] Director: Michael Meyer MD Basophils/100 WBC (Bld) 1 % Normal 0-2 [facility] Comment on above: Performed By: #### C DP, CP, IPF ####[address] [place] [address] Lab Director: Michael Meyer MD Eosinophils (Bld) [#/Vol] 0.00 10*3/uL Normal 0.00-0.44 [facility] Comment on above: Performed By: #### C DP, CP, IPF ####[address] , [facility]83[facility])[phone] Director: Michael Meyer MD Eosinophils/100 WBC (Bld) 0 % Low 1-4 [facility] Comment on above: Performed By: #### C JESSICA CP, IPF ####[address] , [facility]83[facility])[phone] Director: Michael Meyer MD Immature granulocytes/100 WBC (Bld) 1 % High 0 [facility] Comment on above: Performed By: #### C JESSICA, CP, IPF ####[address] , [facility]83419)[phone] Director: Michael Meyer MD Lymphocytes (Bld) [#/Vol] 0.73 10*3/uL Low 1.10-3.70 [facility] Comment on above: Performed By: #### C DP, CP, IPF ####[address] , [place] [phone] Director: Michael Meyer MD Lymphocytes/100 WBC (Bld) 33 % Normal 24-43 [facility] Comment on above: Performed By: #### C DP, CP, IPF ####[address] , [place] [id number] Lab Director: Michael Meyer MD Monocytes (Bld) [#/Vol] 0.15 10*3/uL Normal 0.10-1.20 [facility] Comment on above: Performed By: #### C DP CP, IPF ####[address] [place] [address] Lab Director: Michael Meyer MD Monocytes/100 WBC (Bld) 7 % Normal 3-12 [facility] Comment on above: Performed By: #### C DP, CP, IPF ####[address] , [place] [phone] Director: Michael Meyer MD Morphology Fernando (Bld) [Interp] Platelet scan shows Normal Platelets Normal [facility] Comment on above: Performed By: #### C JESSICA CP, IPF ####[address] , [place] [phone] Director: Michael Meyer MD Neutrophil (Seg) 58 % Normal 36-65 [facility] Comment on above: Performed By: #### C JESSICA CP, IPF ####[address] , [facility]83[facility])[phone] Director: Michael Meyer MD Erythrocyte distribution width (RBC) [Ratio] 11.2 % Low 11.8-14.4 [facility] Comment on above: Performed By: #### C JESSICA CP, IPF ####[address] , [facility]83[facility])[phone] Director: Michael Meyer MD Hematocrit (Bld) [Volume fraction] 46.3 % Normal 40.7-50.3 [facility] Comment on above: Performed By: #### C DP, CP, IPF ####[address] [place] [address] Lab Director: Michael Meyer MD Hemoglobin (Bld) [Mass/Vol] 15.6 g/dL Normal 13.0-17.0 [facility] Comment on above: Performed By: #### C DP, CP, IPF ####[address] , [facility]83 [facility] Director: Michael Meyer MD MCH (RBC) [Entitic mass] 28.5 pg Normal 25.2-33.5 [facility] Comment on above: Performed By: #### C DP, CP, IPF ####[address] , [facility]76([facility])[phone] Director: Michael Meyer MD MCHC (RBC) [Mass/Vol] 33.7 g/dL Normal 28.4-34.8 [facility] Comment on above: Performed By: #### C DP, CP, IPF ####[address] , [place] [address])[phone] Director: Michael Meyer MD MCV (RBC) [Entitic vol] 84.6 fL Normal 82.6-102.9 [facility] Comment on above: Performed By: #### C DP, CP, IPF ####[address] , [facility]83 [facility] Director: Michael Meyer MD NRBC Automated 0.0 per 100 WBC Normal 0.0 [facility] Comment on above: Performed By: #### C DP, CP, IPF ####[address] , [place] [address])[phone] Director: Michael Meyer MD Platelet Count See Reflexed IPF Result Normal 138-453 [facility] Comment on above: Performed By: #### C DP, CP, IPF ####[address] , [facility]83 lab Director: Michael Meyer MD RBC (Bld) [#/Vol] 5.47 10*6/uL Normal 4.21-5.77 [facility] Comment on above: Performed By: #### C DP, CP, IPF ####[address] [place] [address] Lab Director: Michael Meyer MD WBC (Bld) [#/Vol] 2.2 10*3/uL Low 3.5-11.3 [facility] Comment on above: Performed By: #### C DP, CP, IPF ####[address] [place] [address] Lab Director: Michael Meyer MD Auto Diff Performed NOT REPORTED Normal [facility] Comment on above: Performed By: #### C DP, CP, IPF ####[address] [place] [address] Lab Director: Michael Meyer MD MPV NOT REPORTED Normal 8.1-13.5 [facility] Comment on above: Performed By: #### C DP, CP, IPF ####[address] [place] [address] Lab Director: Michael Meyer MD Platelet Comment NOT REPORTED Normal [facility] Comment on above: Performed By: #### C DP, CP, IPF ####[address] [place] [address] Lab Director: Michael Meyer MD RBC morphology finding Nom (Bld) NOT REPORTED Normal [facility] Comment on above: Performed By: #### C DP, CP, IPF ####[address] [place] [address] Lab Director: Michael Meyer MD WBC Morphology NOT REPORTED Normal [facility] Comment on above: Performed By: #### C DP, CP, IPF ####[address] [place] [address] Lab Director: Michael Meyer MD Comp Metabolic Profon 2020 (cont.) Normal [facility] Comment on above: Result Comment: Aver age GFR for 40-49 years old: 99 mL/min/1.73sq m Chronic Kidney Disease: <60 mL/min/1.73sq m Kidney failure: <15 mL/min/1.73sq m eGFR calculated using average adult body mass. Additional eGFR calculator available at: http://www.Buy.On.Social/multiple_crcl_2012.htm Performed By: #### C DP, CP, IPF ####[address] , [place] [phone] Director: Mihcael Meyer MD Albumin [Mass/Vol] 4.1 g/dL Normal 3.5-5.2 [facility] Comment on above: Performed By: #### C DP, CP, IPF ####[address] [place] [address] Lab Director: Michael Meyer MD Albumin/Glob Ratio 1.1 Normal 1.0-2.5 [facility] Comment on above: Performed By: #### C DP, CP, IPF ####[address] [place] [address] Lab Director: Michael Meyer MD Alkaline Phos 87 U/L Normal 40-129 [facility] Comment on above: Performed By: #### C DP, CP, IPF ####[address] [place] [address] Lab Director: Michael Meyer MD ALT [Catalytic activity/Vol] 65 U/L High 5-41 [facility] Comment on above: Performed By: #### C DP, CP, IPF ####[address] [place] [address] Lab Director: Michael Meyer MD Anion gap [Moles/Vol] 13 mmol/L Normal 9-17 [facility] Comment on above: Performed By: #### C DP, CP, IPF ####[address] [place] [address] Lab Director: Michael Meyer MD AST [Catalytic activity/Vol] 68 U/L High <40 [facility] Comment on above: Performed By: #### C DP, CP, IPF ####[facility] [place] , [place] [id number] Lab Director: Michael Meyer MD Bilirubin [Mass/Vol] 0.52 mg/dL Normal 0.3-1.2 [facility] Comment on above: Performed By: #### C DP, CP, IPF ####[address] , [place] [phone] Lab Director: Michael Meyer MD BUN/CRE Ratio 8 Low 9-20 [facility] Comment on above: Performed By: #### C DP, CP, IPF ####[address] , [place] [address]83 Lab Director: Michael Meyer MD Calcium [Mass/Vol] 8.8 mg/dL Normal 8.6-10.4 [facility] Comment on above: Performed By: #### C DP, CP, IPF ####[address] , [place] [address]83 Lab Director: Michael Meyer MD Chloride [Moles/Vol] 100 mmol/L Normal 98-107 [facility] Comment on above: Performed By: #### C DP, CP, IPF ####[address] , [place] [id number] Lab Director: Michael Meyer MD CO2 [Moles/Vol] 23 mmol/L Normal 20-31 [facility] Comment on above: Performed By: #### C DP, CP, IPF ####[address] , [place] [id number] Lab Director: Michael Meyer MD Creatinine [Mass/Vol] 1.55 mg/dL High 0.70-1.20 [facility] Comment on above: Performed By: #### C DP, CP, IPF ####[address] [place] [address] Lab Director: Michael Meyer MD GFR, Amer >60 Normal >60 [facility] Comment on above: Performed By: #### C DP, CP, IPF ####[address] [place] [address] Lab Director: Michael Meyer MD GFR,non Amer 50 mL/min Low >60 [facility] Comment on above: Performed By: #### C DP, CP, IPF ####[address] [place] [address] lab Director: Michael Meyer MD Glucose [Mass/Vol] 94 mg/dL Normal 70-99 [facility] Comment on above: Performed By: #### C DP, CP, IPF ####[address] [place] [address] Lab Director: Michael Meyer MD Potassium [Moles/Vol] 3.9 mmol/L Normal 3.7-5.3 [facility] Comment on above: Performed By: #### C DP, CP, IPF ####[address] [place] [address] Lab Director: Michael Meyer MD Protein [Mass/Vol] 7.9 g/dL Normal 6.4-8.3 [facility] Comment on above: Performed By: #### C DP, CP, IPF ####[address] [place] [address] Lab Director: Michael Meyer MD Sodium [Moles/Vol] 136 mmol/L Normal 135-144 [facility] Comment on above: Performed By: #### C DP, CP, IPF ####[address] , [place] [id number] [facility] Director: Michael Meyer MD Staging: Normal [facility] Comment on above: Result Comment: Stag e 1: Some kidney damage normal GFR Stage 2: Mild kidney damage GFR 60-89 Stage 3: Moderate kidney damage GFR 30-59 Stage 4: Severe kidney damage GFR 15-29 Stage 5: Severe kidney damage GFR <15 ESRD - chronic treatment by dialysis or transplant Performed By: #### C ELOY LOPEZ, IPF ####[address] , [facility]83 [facility] Director: Michael Meyer MD Urea nitrogen [Mass/Vol] 13 mg/dL Normal 6-20 [facility] Comment on above: Performed By: #### C ELOY LOPEZ, IPF ####[address] , [facility]83 [facility] Director: Michael Meyer MD Lactic Acidon 09-23-2021 Lactate [Moles/Vol] 0.9 mmol/L Normal 0.5-2.2 [facility] Comment on above: Performed By: #### L ACTIC ####[address] , [facility]83 [facility] Director: Michael Meyer MD Lactic Acid,Whole Bl NOT REPORTED Normal 0.7-2.1 [facility] Comment on above: Performed By: #### L ACTIC ####[address] , [facility]83 [facility] Director: Michael Meyer MD PLT, Immature Fract.on 09-23 Platelet, Fluoresc. 42 k/uL Low 138-453 [facility] Comment on above: Performed By: #### C ELOY LOPEZ, IPF #### [address] [place] [id number] Sanding Machine Tender: Michael Meyer MD PLT, Immature Fract. 1.2 % Normal 1.1-10.3 [facility] Comment on above: Performed By: #### C ELOY LOPEZ, IPF #### [address] [place], [place] [phone] [employer] Tender: Michael Meyer MD XR CHEST (SINGLE VIEW [...] by: Will Calderón 09/22/21 Final result Normal [facility] Resp Viral Panelon Adenovirus Not detected Normal [facility] Comment on above: Performed By: #### R MEDICAL LIAISON ####[place] [address] [place] [address] Lab Director: Juan R Tang[address] [place] [address] Lab Director: MD Guille Oviedodet.parapertussis Not detected Normal [facility] Comment on above: Performed By: #### R MEDICAL LIAISON ####[address] [address] Lab Director: Juan R Tang[address] [place] [id number] Lab Director: Michael Meyer MD Bordetella pertussis Not detected Normal [facility] Comment on above: Performed By: #### R MEDICAL LIAISON ####[address] [place] [address] Lab Director: Juan R Tang[address] 8[address]83 Lab Director: Michael Meyer MD Chlamyd.pneumoniae Not detected Normal [facility] Comment on above: Performed By: #### R MEDICAL LIAISON ####[facility] [address] [place] [address] Lab Director: Juan R Tang[address] [place] [address] Lab Director: Michael Meyer MD Coronavirus 229E Not detected Normal [facility] Comment on above: Performed By: #### R MEDICAL LIAISON ####[facility] [address] [place] [address] Lab Director: Juan R [facility] [place] [phone] Director: Michael Meyer MD Coronavirus HKU1 Not detected [facility] Comment on above: Performed By: #### R MEDICAL LIAISON ####[facility] [address] [place] [address] Lab Director: Juan R Tang[address] [place] [address] Lab Director: Michael Meyer MD Coronavirus NL63 Not detected [facility] Comment on above: Performed By: #### R MEDICAL LIAISON ####[address] [address] Lab Director: Juan R Tang[address] [place] [address] Lab Director: Michael Meyer MD Coronavirus OC43 Not detected [facility] Comment on above: Performed By: #### R MEDICAL LIAISON ####[facility] [address] [place] [address] Lab Director: Juan R Tang[address] [place] [address] Lab Director: Michael Meyer MD Human Metapneumo Not detected Normal [facility] Comment on above: Performed By: #### R MEDICAL LIAISON ####[facility] [address] [place] [address] Lab Director: Juan R [facility] [place] [address] Lab Director: Michael Meyer MD Influenza A Not detected Normal [facility] Comment on above: Performed By: #### R MEDICAL LIAISON ####[facility] [address] [place] [address] Lab Director: Juan R [facility] [place] [address] Lab Director: Michael Meyer MD Influenza B Not detected [facility] Comment on above: Performed By: #### R MEDICAL LIAISON ####[facility] [address] [place] [address] Lab Director: Juan R Tang[address] [place] [address] Lab Director: Michael Meyer MD Mycoplas.pneumoniae Not detected Normal [facility] Comment on above: Result Comment: Perf ormed by multiplexed nucleic acid assay. Performed By: #### R MEDICAL LIAISON ####[facility] [address] [place] [address] Lab Director: Juan R Tang[address] [place] [address] Lab Director: Michael Meyer MD Parainfluenza 1 Not detected Normal [facility] Comment on above: Performed By: #### R MEDICAL LIAISON ####[facility] [address] [place] [address] Lab Director: Juan R Tang[address] [place] [address] Lab Director: Michael Meyer MD Parainfluenza 2 Not detected Normal [facility] Comment on above: Performed By: #### R MEDICAL LIAISON ####[facility] [address] [place] [address] Lab Director: Juan R Tang[address] [place] [address] Lab Director: Michael Meyer MD Parainfluenza 3 Not detected Normal [facility] Comment on above: Performed By: #### R MEDICAL LIAISON ####[facility] [address] [place], [place] [phone] Director: Juan R [facility] , [place] 3649[address] Lab Director: Michael Meyer MD Parainfluenza 4 Not detected Normal [facility] Comment on above: Performed By: #### R MEDICAL LIAISON ####[facility] [address] [place], [place] [phone] Director: Juan R Tang[address] [place] [address] Lab Director: Michael Meyer MD Resp Syncytial Virus Not detected Normal [facility] Comment on above: Performed By: #### R MEDICAL LIAISON ####[facility] [address] [place], [place] [phone] Director: Juan R Tang[address] [place] [address] Lab Director: Michael Meyer MD Rhino/Enterovirus Not detected Normal [facility] Comment on above: Performed By: #### R MEDICAL LIAISON ####[facility] Femlj[address] [place], [place] [phone] Director: Juan R Tang[address] [place] [address] Lab Director: Michael Meyer MD SARS-CoV-2 (COVID-19) RNA LYNDON+probe Ql (Unsp spec) Detected Abnormal [facility] Comment on above: Result Comment: Resu lts reported to the appropriate Health Department Performed By: #### R MEDICAL LIAISON ####[facility] [address] [place], [place] [phone])[phone] Director: Juan R Tang[address] [place] [address] Lab Director: Michael Meyer MD Resp Viral Panelon 1 Source: .NASOPHARYNGEAL SWAB Normal [facility] Comment on above: Performed By: #### R MEDICAL LIAISON ####[facility] [address]uvjcyri7916 [place], [place] [phone] Director: Juan R Tang[address] [place] [address] Lab Director: Micheal Meyer MD Influenza A H1 NOT REPORTED Normal [facility] Comment on above: Performed By: #### R MEDICAL LIAISON ####[facility] [address] [place], [place] [phone] Director: Juan R Tang[address] [place] [address] Lab Director: Michael Meyer MD Influenza A H1-2009 NOT REPORTED Normal [facility] Comment on above: Performed By: #### R MEDICAL LIAISON ####[facility] Ac[address]hr[address]71 [place], [place] [phone] Director: Juan R Tang[address] [place] [address] Lab Director: Michael Meyer MD Influenza A H3 NOT REPORTED Normal [facility] Comment on above: Performed By: #### R MEDICAL LIAISON ####[facility] [address]vcjnyh[address]75 [place] [address] Lab Director: Juan R Tang, [facility] [place] [address] , [place] [id number] Lab Director: Michael Meyer MD No Panel [...] Small plantar and dorsal calcaneal spurs present. Kott-ry-qknjvcfh degenerative change primarily midfoot. Overall alignment anatomic. [...] Small plantar and dorsal calcaneal spurs present. Bnmy-ly-chxmzpwn degenerative change primarily midfoot. Overall alignment anatomic. Soft tissues unremarkable. IMPRESSION: No acute findings. [facility] [employer] Work Phone: [facility] [employer] Work Phone: No acute findings. [facility] CONSOLIDATED EXAMINATION: THREE XRAY VIEWS OF THE RIGHT FOOT; THREE XRAY VIEWS OF THE LEFT ANKLE 09/13/2021 9:14 am COMPARISON: None. HISTORY: ORDERING SYSTEM PROVIDED HISTORY: pain TECHNOLOGIST PROVIDED HISTORY: pain FINDINGS: No acute fracture demonstrated. Alignment is anatomic. 2 threaded screws noted within the medial malleolus. Xemf-kn-dterihqs degenerative change primarily midfoot. Small plantar and [...] threaded screws noted within the medial malleolus. Mcni-gr-nhaoccvf degenerative change primarily midfoot. Small plantar and dorsal calcaneal spurs present. Soft tissues unremarkable. IMPRESSION: No acute findings. [employer] Phone: No Panel InformationOrdered By: Jeronimo Art on 09-13-2021 [employer] Phone: XR ANKLE LEFT (MIN 3 VIEWS)o n 09-13-2021 XR ANKLE LEFT (MIN 3 VIEWS) EXAMINATION: THREE XRAY VIEWS OF THE RIGHT FOOT; THREE XRAY VIEWS OF THE LEFT ANKLE 09/13/2021 9:14 am COMPARISON: None. HISTORY: ORDERING SYSTEM PROVIDED HISTORY: pain TECHNOLOGIST PROVIDED HISTORY: pain FINDINGS: No acute fracture demonstrated. Alignment is anatomic. 2 threaded screws noted within the medial malleolus. Uerm-xz-lefidgfo degenerative change primarily midfoot. Small plantar and dorsal calcaneal spurs present. Soft tissues unremarkable. IMPRESSION: No acute findings. Interpreted by: Jeronimo Art DO Signed by: Jeronimo Art DO 09/13/21 Final result Normal [facility] Radiology Study observation (narrative) [employer] Phone: XR ANKLE RIGHT (MIN 3 VIEWS) [...] Small plantar and dorsal calcaneal spurs present. Fhxm-tm-kyiluyfr degenerative change primarily midfoot. Overall alignment anatomic. Soft tissues unremarkable. IMPRESSION: No acute findings. Interpreted by: Jeronimo Art DO Signed by: Jeronimo Atr DO 09/13/21 Final result Normal [facility] Radiology Study observation (narrative) [employer] Phone: XR FOOT LEFT (MIN 3 VIEWS)on [...] Small plantar and dorsal calcaneal spurs present. Jqmb-mb-scsmbcpf degenerative change primarily midfoot. Overall alignment anatomic. Soft tissues unremarkable. IMPRESSION: No acute findings. Interpreted by: Jeronimo Art DO Signed by: Jeronimo Art DO 09/13/21 Final result Normal [facility] Radiology Study observation (narrative) [employer] Phone: XR FOOT RIGHT (MIN 3 VIEWS)o n 09-13-2021 XR FOOT RIGHT (MIN 3 VIEWS) EXAMINATION: THREE XRAY VIEWS OF THE RIGHT FOOT; THREE XRAY VIEWS OF THE LEFT ANKLE 09/13/2021 9:14 am COMPARISON: None. HISTORY: ORDERING SYSTEM PROVIDED HISTORY: pain TECHNOLOGIST PROVIDED HISTORY: pain FINDINGS: No acute fracture demonstrated. Alignment is anatomic. 2 threaded screws noted within the medial malleolus. Gpal-wh-tivmnylr degenerative change primarily midfoot. Small plantar and dorsal calcaneal spurs present. Soft tissues unremarkable. IMPRESSION: No acute findings. Interpreted by: Jeronimo Art DO Signed by: Jeronimo Art DO 09/13/21 Final result Normal [facility] Radiology Study observation (narrative) [employer] Phone: XR ABDOMEN (KUB) (SINGLE AP VIEW)on [...] Scott MD 05/08/21 Final result Normal [facility] XR ABDOMEN (KUB) (SINGLE AP VIEW)Ordered By: Quincy Interiano on 05-08-2021 Nonobstructive bowel gas pattern. No radiodensities diagnostic of nephroliths. [employer] Phone: EXAMINATION: ONE SUPINE XRAY VIEW(S) OF THE ABDOMEN 05/08/2021 10:35 am COMPARISON: 01 May 2021 HISTORY: ORDERING SYSTEM PROVIDED HISTORY: Microscopic hematuria FINDINGS: The bowel gas pattern is non obstructive. No organomegaly, free air or abnormal calcifications are noted. Mild levo scoliotic curvature is present. [employer] Phone: Luther, pn Incoming Radiant Results From [employer] - 05/08/2021 2:06 PM EDT EXAMINATION: ONE SUPINE XRAY VIEW(S) OF THE ABDOMEN 05/08/2021 10:35 am COMPARISON: 01 May 2021 HISTORY: ORDERING SYSTEM PROVIDED HISTORY: Microscopic hematuria FINDINGS: The bowel gas pattern is non obstructive. No organomegaly, free air or abnormal calcifications are noted. Mild levo scoliotic curvature is present. IMPRESSION: Nonobstructive bowel gas pattern. No radiodensities diagnostic of nephroliths. [employer] Phone: [employer] Phone: No Panel InformationOrdered By: Fatuma Sanchez on 05-01-2021 1. No acute osseous abnormality of the right ankle. Posttraumatic and postsurgical changes as above. Mild tibiotalar joint osteoarthritis. 2. Acute osseous abnormality of the right foot. Chronic appearing well-defined erosion or subchondral cyst at the base of the 3rd metatarsal without associated joint space loss. This is a nonspecific finding. [employer] Phone: EXAMINATION: THREE XRAY VIEWS OF THE [...] base of the 3rd metatarsal is nonspecific. [employer] Phone: Luther, pn Incoming Radiant Results From [employer] - 05/01/2021 5:46 PM EDT EXAMINATION: THREE [...] space loss. This is a nonspecific finding. [employer] Phone: [employer] Phone: Unremarkable left wrist/left hand series. There are no plain radiographic findings to suggest an active synovial process of bone as rheumatoid arthritis [employer] Phone: EXAMINATION: 2 XRAY VIEWS OF THE LEFT WRIST; TWO XRAY VIEWS OF THE LEFT HAND 05/01/2021 11:10 am COMPARISON: None. HISTORY: ORDERING SYSTEM PROVIDED HISTORY: Seropositive rheumatoid arthritis (HCC) FINDINGS: The bones and joints are unremarkable without definite fracture, dislocation, significant degenerative/erosive change, radiopaque foreign body, abnormal soft tissue calcification or bony destructive lesion [employer] Phone: [place], [facility] Incoming Radiant Results From [employer]/Primary Data - 05/01/2021 11:26 AM EDT EXAMINATION: 2 XRAY VIEWS OF THE LEFT WRIST; TWO XRAY VIEWS OF THE LEFT HAND 05/01/2021 11:10 am COMPARISON: None. HISTORY: ORDERING SYSTEM PROVIDED HISTORY: Seropositive rheumatoid arthritis ([facility]) FINDINGS: The bones and joints are unremarkable without definite fracture, dislocation, significant degenerative/erosive change, radiopaque foreign body, abnormal soft tissue calcification or bony destructive lesion IMPRESSION: Unremarkable left wrist/left hand series. There are no plain radiographic findings to suggest an active synovial process of bone as rheumatoid arthritis [employer] Phone: [employer] Phone: XR ABDOMEN (KUB) (SINGLE AP VIEW)on [...] Albarran MD 05/01/21 Final result Normal [facility] XR ABDOMEN (KUB) (SINGLE AP VIEW)Ordered By: Quincy Interiano on 05-01-2021 No significant radiographic abnormality in the abdomen. [employer] Phone: EXAMINATION: ONE SUPINE XRAY VIEW(S) OF THE ABDOMEN 05/01/2021 10:51 am COMPARISON: None. HISTORY: ORDERING SYSTEM PROVIDED HISTORY: Pain FINDINGS: Nonobstructive bowel gas pattern. No abnormal calcifications overlying the gallbladder urinary tract. No mass effect. Osseous structures grossly intact. [employer] Phone: Luther, [facility] Incoming Radiant Results From [employer] - 05/01/2021 11:21 AM EDT EXAMINATION: ONE SUPINE XRAY VIEW(S) OF THE ABDOMEN 05/01/2021 10:51 am COMPARISON: None. HISTORY: ORDERING SYSTEM PROVIDED HISTORY: Pain FINDINGS: Nonobstructive bowel gas pattern. No abnormal calcifications overlying the gallbladder urinary tract. No mass effect. Osseous structures grossly intact. IMPRESSION: No significant radiographic abnormality in the abdomen. [employer] Phone: [employer] Phone: XR ANKLE LEFT (MIN 3 VIEWS)o [...] Gomez MD 05/01/21 Final result Normal [facility] XR ANKLE LEFT (MIN 3 VIEWS)O rdered By: Fatuma Sanchez on 05-01-2021 Moderate calcaneal spurring [employer] Phone: EXAMINATION: THREE XRAY VIEWS OF THE LEFT ANKLE 05/01/2021 11:12 am COMPARISON: None. HISTORY: ORDERING SYSTEM PROVIDED HISTORY: Seropositive rheumatoid arthritis (HCC) FINDINGS: There is moderate spurring of the superior aspect of the os calcis. The bones and joints are otherwise unremarkable without definite effusion, acute fracture, dislocation radiopaque foreign body or bony destructive lesion [employer] Phone: [place], [facility] Incoming Radiant Results From [employer] - 05/01/2021 11:21 AM EDT EXAMINATION: THREE [...] bony destructive lesion IMPRESSION: Moderate calcaneal spurring [employer] Work Phone: [facility] [employer] Work Phone: XR ANKLE RIGHT (MIN 3 [...] Caceres MD 05/01/21 Final result Normal [facility] XR FOOT LEFT (2 VIEWS)on XR [...] Gomez MD 05/01/21 Final result Normal [facility] XR FOOT LEFT (2 VIEWS)Ordere d By: Fatuma Sanchez on 05-01-2021 Mild degenerative changes There are no plain radiographic findings to suggest an active synovial process of bone as rheumatoid arthritis [employer] Phone: EXAMINATION: TWO XRA Y VIEWS OF [...] radiopaque foreign body or bony destructive lesion [employer] Phone: Luther, [facility] Incoming Radiant Results From [employer]/Primary Data - 05/01/2021 11:29 AM EDT EXAMINATION: TWO [...] synovial process of bone as rheumatoid arthritis [employer] Phone: [employer] Phone: XR FOOT RIGHT (2 VIEWS)on XR [...] Caceres MD 05/01/21 Final result Normal [facility] XR HAND LEFT (2 VIEWS)on XR [...] Gomez MD 05/01/21 Final result Normal [facility] XR HAND RIGHT (2 VIEWS)on XR [...] Gomez MD 05/01/21 Final result Normal [facility] XR HAND RIGHT (2 VIEWS)Order ed By: Fatuma Sanchez on 05-01-2021 Unremarkable two-vie w right hand series. There are no definite plain radiographic findings to suggest an active synovial process of bone as rheumatoid arthritis [employer] Phone: EXAMINATION: TWO XRA Y VIEWS OF THE RIGHT HAND 05/01/2021 11:12 am COMPARISON: None. HISTORY: ORDERING SYSTEM PROVIDED HISTORY: Seropositive rheumatoid arthritis (HCC) FINDINGS: The bones and joints are unremarkable without definite fracture, dislocation, significant degenerative/erosive change, radiopaque foreign body, abnormal soft tissue calcification or bony destructive lesion [employer] Phone: [place], [facility] Incoming Radiant Results From [employer]/Primary Data - 05/01/2021 11:24 AM EDT EXAMINATION: TWO [...] synovial process of bone as rheumatoid arthritis [employer] Phone: [employer] Phone: XR WRIST LEFT (2 VIEWS)on XR [...] Gomez MD 05/01/21 Final result Normal [facility] XR WRIST RIGHT (2 VIEWS)on 0 [...] Gomez MD 05/01/21 Final result Normal [facility] XR WRIST RIGHT (2 VIEWS)Orde red By: Fatuma Sanchez on 05-01-2021 Unremarkable two-vie w right wrist series [employer] Phone: EXAMINATION: 2 XRAY VIEWS OF THE RIGHT WRIST; 05/01/2021 11:11 am COMPARISON: None. HISTORY: ORDERING SYSTEM PROVIDED HISTORY: Seropositive rheumatoid arthritis (HCC) FINDINGS: The bones and joints are unremarkable without definite fracture, dislocation, significant degenerative/erosive change, radiopaque foreign body or bony destructive lesion [employer] Phone: Luther, [employer] Incoming Radiant Results From [employer]/Primary Data - 05/01/2021 11:23 AM EDT EXAMINATION: 2 XRAY VIEWS OF THE RIGHT WRIST; 05/01/2021 11:11 am COMPARISON: None. HISTORY: ORDERING SYSTEM PROVIDED HISTORY: Seropositive rheumatoid arthritis (HCC) FINDINGS: The bones and joints are unremarkable without definite fracture, dislocation, significant degenerative/erosive change, radiopaque foreign body or bony destructive lesion IMPRESSION: Unremarkable two-view right wrist series [employer] Phone: [employer] Phone: XR WRIST RIGHT (MIN 3 VIEWS) [...] Pepe MD 03/01/21 Final result Normal [facility] XR WRIST RIGHT (MIN 3 VIEWS) Ordered By: Apryl Tucker on 03-01-2021 Unremarkable right wrist. [employer] Phone: EXAMINATION: 3 XRAY VIEWS OF THE [...] degenerative findings. No appreciable soft tissue abnormality. [employer] Phone: Luther, pn Incoming Radiant Results From [employer]/Primary Data - 03/01/2021 7:52 PM EDT EXAMINATION: 3 [...] soft tissue abnormality. IMPRESSION: Unremarkable right wrist. [employer] Phone: [facility] [employer] Work Phone: XR KNEE RIGHT (1-2 VIEWS)on [...] MD 11/07/20 Recipients: Shahrzad Hensley APRN - [employer] - (authorizing provider) Final result Normal [facility] XR KNEE RIGHT (3 VIEWS)on Joint effusion witho ut acute osseous abnormality. [facility] [place] EXAMINATION: THREE XRAY VIEWS OF THE RIGHT [...] effusion. The periarticular soft tissues are unremarkable. [place] Luther, [employer] Incoming Radiant Results From [employer]/Munch [employer] Bunchs - 09/04/2019 6:08 PM EST EXAMINATION: THREE [...] effusion without acute osseous abnormality. [facility] [place] X[facility] HAND LEFT (MIN 3 VIEWS)on 05-12-2019 No acute osseous abnormality. [facility] [place] EXAMINATION: THREE XRAY VIEWS OF THE LEFT HAND 05/12/2019 12:22 pm COMPARISON: November 12, 2018 HISTORY: ORDERING SYSTEM PROVIDED HISTORY: pain TECHNOLOGIST PROVIDED HISTORY: pain FINDINGS: There is no evidence of acute fracture. There is normal alignment. No acute joint abnormality. No focal osseous lesion. No focal soft tissue abnormality. [facility] [place] Luther, [employer] Incoming Radiant Results From [employer]unch[employer] - 05/12/2019 12:48 PM EDT EXAMINATION: THREE XRAY VIEWS OF THE LEFT HAND 05/12/2019 12:22 pm COMPARISON: November 12, 2018 HISTORY: ORDERING SYSTEM PROVIDED HISTORY: pain TECHNOLOGIST PROVIDED HISTORY: pain FINDINGS: There is no evidence of acute fracture. There is normal alignment. No acute joint abnormality. No focal osseous lesion. No focal soft tissue abnormality. IMPRESSION: No acute osseous abnormality. [facility] [place] MRI BRAIN WO CONTRASTon 04-03 MRI BRAIN [...] Tiffanie Hughes MD 04/24/19 Final result Normal [facility] MRI CERVICAL SPINE WO CONTRA STon 04-24-2019 [...] Tiffanie Hughes MD 04/24/19 Final result Normal [facility] Vital Signs Date Time Vital Sign Value Performing Clinician Robson henry 05-15-2024 14:12-0400 Blood Pressure Location [facility]ISL [facility] 05-15-2024 14:12-0400 Diastolic blood pressure 76 mm[Hg] David NILL [facility] 05-15-2024 14:12-0400 Heart rate 76 /min David NILL [facility] 05-15-2024 14:12-0400 Respiratory rate 16 /min David NILL [facility] 05-15-2024 14:12-0400 Systolic blood pressure 118 mm[Hg] David NILL [facility] 09-13-2021 08:22-0500 Diastolic blood pressure 86 mm[Hg] Francis Pinto DO Work Phone: [facility] 09-13-2021 08:22-0500 Systolic blood pressure 147 mm[Hg] Francis Pinto DO Work Phone: [employer] 09-13-2021 08:20-0500 Body mass index (BMI) [Ratio] 37.2 kg/m2 Francis Melendrezrov DO Work Phone: [employer] 09-13-2021 08:20-0500 Body temperature 97.39 [degF] Francis Melendrezrov DO Work Phone: [employer] 09-13-2021 08:20-0500 Body weight 95.25 kg Francis Melendrezrov DO Work Phone: [employer] 09-13-2021 08:20-0500 Heart rate 85 /min Francis Melendrezrov DO Work Phone: [employer] 09-13-2021 08:20-0500 Respiratory rate 16 /min Francis Melendrezrov DO Work Phone: [employer] 09-13-2021 08:20-0500 SaO2% (BldA) [Mass fraction] 99 % Francis Melendrezrov [employer] Work Phone: [employer] 03-01-2021 18:28-0400 Diastolic blood pressure 96 mm[Hg] [employer] Work Phone: [employer] Work Phone: 03-01-2021 18:28-0400 Systolic blood pressure 151 mm[Hg] Clari Mikala Work Phone: [employer] Work Phone: 03-01-2021 18:26-0400 Body temperature 98.71 [degF] [employer] Work Phone: [employer] Work Phone: 03-01-2021 18:26-0400 Heart rate 70 /min [employer] Work Phone: [employer] Work Phone: 03-01-2021 18:26-0400 Respiratory rate 18 /min [employer] Work Phone: [employer] Work Phone: 03-01-2021 18:26-0400 SaO2% (BldA) [Mass fraction] 98 % Clari Dumont Work Phone: [facility] [employer] Work Phone: 09-06-2019 20:00-0500 Body Temperature 97.9 [degF] Oscar Claytonimes [employer] [facility] [place] 09-06-2019 20:00-0500 BP Diastolic 100 mm[Hg] [facility] [place] 09-06-2019 20:00-0500 BP Systolic 154 mm[Hg] [facility] [place] 09-06-2019 20:00-0500 Pulse (Heart Rate) 89 /min [facility] [place] [place] 09-06-2019 20:00-0500 Pulse Oximetry 97 % [facility] [place] [facility] [place] 09-06-2019 20:00-0500 Respiratory Rate 19 /min Oscar [facility]imes [facility] [place] 09-04-2019 17:38-0500 BMI (Body Mass Index) 36.49 kg/m2 David Huitronpatrick [facility] 09-04-2019 17:38-0500 Body Temperature 98.2 [degF] David Perez [facility] [place] 09-04-2019 17:38-0500 Body weight 93.44 kg David Huitronpatrick [facility], [place] 09-04-2019 17:38-0500 BP Diastolic 94 mm[Hg] [facility] [place] 09-04-2019 17:38-0500 BP Systolic 142 mm[Hg] [facility] [place] 09-04-2019 17:38-0500 Pulse (Heart Rate) 87 /min David Carter [facility], [place] 09-04-2019 17:38-0500 Pulse Oximetry 99 % David Perez [facility], [place] 09-04-2019 17:38-0500 Respiratory Rate 14 /min David Carter [facility], [place] 05-12-2019 12:15-0400 Body Temperature 98.01 [degF] Clari Dumont [facility], [place] 05-12-2019 12:14-0400 BP Diastolic 85 mm[Hg] [facility] , [place] 05-12-2019 12:14-0400 BP Systolic 152 mm[Hg] [facility] [place] 05-12-2019 12:14-0400 Pulse (Heart Rate) 87 /min [facility]ont [facility], [place] 05-12-2019 12:14-0400 Pulse Oximetry 96 % Clari Dumont [facility] , [place] 05-12-2019 12:14-0400 Respiratory Rate 16 /min [facility], [place] Encounters Encounter Date Encounter Type Care Provider Facility Start: 07-18-2024 End: 07-18-2024 Bamboo flowsheet Ruth Ann Gonzalez ELECTRONIC DEVELOPMENT TECHNICIAN Work Phone: [facility] Start: 07-18-2024 End: 07-18-2024 Bamboo flowsheet Ruth Ann Gonzalez ELECTRONIC DEVELOPMENT TECHNICIAN Work Phone: [facility] Start: 07-18-2024 End: 07-18-2024 Office outpatient visit 25 minutes Ruth Ann Gonzalez ELECTRONIC DEVELOPMENT TECHNICIAN Work Phone: [facility] Comment on above: Low back pain, unspe cified back pain laterality, unspecified chronicity, unspecified whether sciatica present (Primary Dx); Bilateral sciatica Start: 07-18-2024 End: 07-18-2024 ambulatory RT[facility] ANN GONZALEZ Not Available Start: 05-15-2024 End: 05-15-2024 ambulatory ISABELLA KAPLAN Facility:[facility] Start: 05-15-2024 End: 05-15-2024 Patient encounter procedure David DIAMOND [facility] Start: 01-24-2024 End: 01-24-2024 ambulatory WILL SANTANA [...] Start: 08-22-2023 ambulatory ISABELLA KAPLAN Facility: [facility] Start: 08-12-2023 ambulatory Lakshmi Ruiz [facility] Start: 07-06-2022 End: 07-07-2022 ambulatory ISABELLA KAPLAN Facility:[facility] Start: 05-21-2022 End: 05-22-2022 ambulatory ISABELLA KAPLAN Facility:[facility] Start: 03-19-2022 End: 03-27-2022 ambulatory ISABELLA KAPLAN Facility:[facility] Start: 02-22-2022 End: 02-23-[address] APRYL RIOS Facility:[facility] Start: 09-23-2021 End: 09-23-2021 [facility]: 09-21-2021 End: 09-21-2021 Emergency department patient visit CLARI WOLFHMANN [facility] Start: 09-13-2021 End: 09-13-2021 Emergency department patient visit FRANCIS Bacilio MELENDREZLilly [facility] Start: 09-13-2021 End: 09-13-2021 Emergency department [facility] Work [facility]: [facility] ED Comment on above: Sprain of right foot , initial encounter (Primary Dx); Sprain of left ankle, unspecified ligament, initial encounter Start: 05-08-2021 End: 05-11-2021 ambulatory [facility] Start: 05-08-2021 End: 05-10-2021 Subsequent hospital visit by physician Karoline Varela 4 [facility] Comment on above: Microscopic hematuri a; Flank pain; Hydronephrosis with ureteral calculus Start: 05-01-2021 End: 05-04-2021 [facility] Start: 05-01-2021 End: 05-03-2021 Subsequent hospital visit by physician Karoline Meek Dr Room 2 [facility] Comment on above: Seropositive rheumat oid arthritis (HCC) Pain Start: 03-01-2021 End: 03-01-2021 [facility] Start: 03-01-2021 End: 03-01-2021 Emergency department patient visit Clari Wolfhmann Work Phone: [facility] ED Comment on above: Strain of right wris t, initial encounter (Primary Dx) Start: 11-07-2020 End: 11-10-2020 ambulatory [facility]AD [facility]ENS[facility] Start: 11-07-2020 End: 11-09-2020 Subsequent hospital visit by physician Clari Wolfhmann [facility] Start: 09-06-2019 End: 09-06-2019 Emergency department patient visit Oscar Zuniga Work Phone: [facility] ED Comment on above: Sprain of collateral ligament of right knee, initial encounter (Primary Dx) Start: 09-04-2019 End: 09-04-2019 Emergency department patient visit David Perez [facility] ED Comment on above: Injury of right knee , initial encounter (Primary Dx); Effusion of right knee joint Start: 05-12-2019 End: 05-12-2019 Emergency department patient visit [facility] ED Comment on above: Contusion of left coles nd including fingers, initial encounter (Primary Dx) Start: 04-20-2019 End: 04-20-2019 Emergency department patient visit JEAN HARPER [facility] Start: 07-29-2017 End: 07-30-2017 Ambulatory Nilo Mendez Facility:[facility] Procedures Date Procedure Procedure Detail Performing [...] DTaP/Tdap/Td vaccine (2 - Td or Tdap) [facility] Start: 11-28-2027 DTaP/Tdap/Td vaccine (2 - Td) DTaP/Tdap/Td vaccine (2 - Td) [place] Start: 08-01-2024 End: 08-01-2024 Patient encounter procedure 08/01/2024 8:00 AM EDT Office Visit [facility] [address] [place] [address] Ruth Ann Gonzalez ELECTRONIC DEVELOPMENT TECHNICIAN [address] [place] [address] [facility] Start: 07-18-2024 End: 07-18-2024 Patient encounter procedure 07/18/2024 8:45 AM EDT Office Visit [facility] [address] [place] [address] Ruth Ann Gonzalez, ELECTRONIC DEVELOPMENT TECHNICIAN [address] [place] [address] Low back pain, unspecified back pain laterality, unspecified chronicity, unspecified whether sciatica present (Primary Dx) [facility] Comment on above: Low back pain, unspe cified back pain laterality, unspecified chronicity, unspecified whether sciatica present (Primary Dx) Start: 11-25-2021 End: 11-25-2021 Patient encounter procedure 11/25/2021 Office Visit Rheumatology Fatuma Sanchez MD [address] [place] [address] [facility] Start: 06-24-2021 End: 06-24-2021 Patient encounter procedure 06/24/2021 Office Visit Rheumatology aFtuma Sanchez MD [address] [place] [address] [phone] [facility] Start: 06-03-2021 Influenza vaccination [facility] Start: 2021 Lipid panel Lipid screen [facility] Start: 06-03-2020 Influenza vaccination Flu vaccine (# 1) [place] Start: 06-03-2019 Influenza vaccination Flu vaccine (# 1) [place] Start: 2016 Diabetes screen Diabetes screen [facility] Start: 2000 DTaP/Tdap/Td vaccine (1 - Tdap) DTaP/Tdap/Td vaccine (1 - Tdap) [place] Start: 1996 HIV screen HIV screen [place], [place] Start: 1996 HIV screening HIV screen [facility] Start: 1994 Varicella Vaccine (1 of 2 - 13+ 2-dose series) Varicella Vaccine (1 of 2 - 13+ 2-dose series) [place] Start: 1993 COVID-19 Vaccine (1) COVID-19 Vaccin e (1) [facility] Start: 1992 DTaP/Tdap/Td vaccine (1 - Tdap) DTaP/Tdap/Td vaccine (1 - Tdap) [place] Start: 1982 Varicella Vaccine (1 of 2 - 2-dose childhood series) Varicella Vaccine (1 of 2 - 2-dose childhood series) [facility] Start: 1981 Hepatitis C screening Hepatitis C sc reen [facility] End: 05-12-2019 Splint application Splint application Procedures STAT One Time for 1 Occurrences starting 05/12/2019 until 05/12/2019 [place] Comment on above: One Time for 1 Occur rences starting 05/12/2019 until 05/12/2019 Immunizations Immunization Date Immunization Notes Care Provider Fa cility 10-22-2019 influenza, injectable, quadrivalent, preservative free Ruth Ann Gonzalez ELECTRONIC DEVELOPMENT TECHNICIAN Work Phone: [facility] 11-28-2017 tetanus toxoid, reduced diphtheria toxoid, and acellular pertussis vaccine, adsorbed Ruth Ann Gonzalez ELECTRONIC DEVELOPMENT TECHNICIAN Work Phone: [facility] 07-14-2010 influenza virus vaccine, whole virus Clari Dumont [place] NEGATED: Highlighted row has not occurred!05-11-2021 SARS-CoV-2 (COVID-19) Ad26 vaccine, recombinant David NILL [facility] Payers Date Payer Category Payer [employer] [facility] BCBS .2.840.797288.1.13.693.2. 7.9.510047.532414.315 2024 Unknown [id number] 2022 Medicaid [id number] 2020 Unknown [id number] 10.04.840.444862.1.13.239.2. 7.3.814665.315 2019 Unknown [id number] 2019 Unknown [facility] [id number] xxxxxxxxx 2019-Present [address] [address] [place] [address] xxxxxxxxx 1.2.840.139174.1.13.239.2. 7.3.128290.315 1981 Unknown [id number] 2.16.840.1.348874.3.579.2. 175 1981 Unknown [id number] 2.16.840.1.429346.3.579.2. 173 1981 Unknown [id number] 2.16.840.1.461895.3.579.2. 173 1981 Unknown [id number] 2.16.840.1.736573.3.579.2. 173 1981 Unknown [id number] 2.16.840.1.668343.3.579.2. 173 1981 Unknown [id number] 2.16.840.1.232005.3.579.2. 173 1981 Unknown [id number] 2.16.840.1.245127.3.579.2. 173 1981 Unknown [id number] 2.16.840.1.580969.3.579.2. 173 1981 Unknown [id number] 2.16.840.1.499770.3.579.2. 173 1981 Unknown [id number] 2.16.840.1.236535.3.579.2. 173 1981 Unknown [id number] 2.16.840.1.670811.3.579.2. 173 1981 Unknown [id number] 2.16.840.1.467907.3.579.2. 173 1981 Unknown [id number] 2.16.840.1.990111.3.579.2. 173 1981 Unknown [id number] 2.16.840.1.839816.3.579.2. 173 1981 Unknown [id number] 2.16.840.1.365113.3.579.2. 173 1981 Unknown [id number] 2.16.840.1.667883.3.579.2. 173 1981 Unknown [id number] 2.16.840.1.069856.3.579.2. 173 1981 Unknown [id number] 2.16.840.1.950943.3.579.2. 173 1981 Unknown [id number] 2.16840.1.094951.3.579.2. 173 1981 Unknown [id number] 2.16840.1.824317.3.579.2. 173 1981 Unknown [id number] 2.16840.1.670718.3.579.2. 593 1981 Unknown [id number] 2.16840.1.156394.3.579.2. 593 1981 Unknown [id number] 2.16840.1.899558.3.579.2. 593 1981 Unknown [id number] 2.16840.1.541471.3.579.2. 593 1981 Unknown [id number] 2.16840.1.686201.3.579.2. 727 1981 Unknown [id number] 2.16.840.1.986541.3.579.2. 727 1981 Unknown [id number] 2.16.840.1.754416.3.579.2. 1259 1981 Unknown [id number] 2.16.840.1.894144.3.579.2. 1259 1981 Unknown [id number] 2.16.840.1.302176.3.579.2. 1259 1981 Unknown [id number] 2.16.840.1.901300.3.579.2. 9 1981 Unknown [id number] 2.16.840.1.989578.3.579.2. 1258 1981 Unknown [id number] 2.16.840.1.101447.3.579.2. 1258 1981 Unknown [id number] 2.16.840.1.503745.3.579.2. 1258 1981 Unknown [id number] 2.16.840.1.317366.3.579.2. 1258 1981 Unknown [id number] 2.16.840.1.533864.3.579.2. 9 1959 Unknown [id number] 1.2.840.731869.1.13.239.2. 7.3.599434.315 1959 Unknown [id number] Social History Date Type Detail Facility Start: 09-04-2019 End: 02-10-2023 Tobacco smoking status NHIS Never smoker [facility] [employer] Start: 09-04-2019 End: 03-27-2021 Alcohol intake Current non-drinker of alcohol (finding) [place], [place] Start: 10-16-2017 Alcohol Comment [place] Start: 1980 Sex Assigned At Not on file M [place], [place] Start: 05-12-2019 End: 01-11-2024 Alcohol intake No [facility] Start: 09-06-2019 End: 02-10-2023 Tobacco use and exposure Never used [place] Exposure to SARS-CoV -2 (event) Not sure [facility] Start: 03-27-2021 Alcohol Comment very rare Emma parikh Work Phone: Tobacco smoking status Never [facility] Start: 01-11-2024 End: 07-18-2024 Alcoholic beverage intake Current drinker of alcohol (finding) [facility] Start: 01-11-2024 End: 07-18-2024 Alcoholic beverage intake [facility] Start: 02-10-2023 Alcohol Comment caffeine intak e: 3-4 cups per day, soda [facility] Start: 10-03-2023 Gender identity Identifies as male gender (finding) [facility] Functional Status Date Assessment Result Facility 05-15-2024 Functional Status N/A [facility] Clinical Notes 09-13-2021 to 07-18-2024 Ruth Ann Gonzalez ELECTRONIC DEVELOPMENT TECHNICIAN - 07/18/2024 8:45 AM EDTInstructionsAttachments Note Date [...] has a new job working at a [employer], 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 [place]: XR NOMS 11/28/23, [...] activities as tolerated documented in this encounter [facility] 05-15-2024 Note General Surgery Offi ce/Clinic Note [...] qualifying data Procedure/Surgica (more content not included)... [facility] Comment on above: Result Comment: Elec tronically Signed By: DARA FARIAS, David Loera\.br\Date and Time Signed: 05/15/24 14:59 EDT 11-11-2023 Note TC to Home number fo r ELECTRONIC DEVELOPMENT TECHNICIAN referral for: Elevated Rheumatoid Factor Referral in media sales consultant Spoke with son and provider Rheum clinic call back number. Son states he will give his father the message to return call. [facility] 07-06-2022 Note CONSULTATION CONSULTATION DATE: 07/06/2022 CHIEF [...] his work. 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 He has low back pain [...] in office. CC: Chen Kaplan CNP [facility] 09-13-2021 Hospital Discharge instructions Francis Pinto DO - 09/13/2021 Return to the Emergency Department immediately if you develop worsening pain, numbness, weakness , or you have any other concerns. Please follow up with your orthopaeidc doctor in 2-3 days. Ice, elevate Use crutches The following attachments cannot be sent through Care Everywhere.Ankle Sprain ([place])documented in this encounter [employer] Phone: Evaluation + Plan note No data available for this section [facility] Evaluation note Diagnosis Strain of right wrist, initial encounter- Primary documented in this encounter [employer] Phone: evaluation note* Diagnosis Seropositive rheumatoid arthritis (HCC) Rheumatoid arthritis documented in this encounter [employer] Phone: evaluation note* Diagnosis Pain Generalized pain documented in this encounter [employer] Phone: evalfwpvea note* Diagnosis Microscopic hematuria Flank pain Abdominal pain, unspecified site Hydronephrosis with ureteral calculus Calculus of ureter documented in this encounter [employer] Phone: evaluation note* Diagnosis Sprain of right foot, initial encounter- Primary Sprain of left ankle, unspecified ligament, initial encounter documented in this encounter [employer] Phone: evaluation note* Diagnosis Low back pain, unspecified back pain laterality, unspecified chronicity, unspecified whether sciatica present- Primary Bilateral sciatica Sciatica documented in this encounter [facility] Healthcare[facility]ospital Discharge instructions* Attachments The following attachments cannot be sent through Care Everywhere. * Strain or Sprain ([place]) [facility]: Hospital Discharge instructions No data available for this section [facility] Progress note No data available for this section [facility] Summary Purpose Family History No Family History Records FoundNo Family History Records FoundNo Family History Records FoundNo Family History Records FoundNo Family History Records FoundNo Family History Records Found No data available for this section No Family History Records FoundNo Family History Records Found Advance Directives No Advanced Directives Records FoundDocuments on File Type Date 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 * Finger: Bruises ([place]) documented in this encounter* Attachments The following attachments cannot be sent through Care Everywhere. * Knee Sprain ([place]) documented in this encounter Additional Source Comments (unrecognized sect ion and content) No Status Records FoundNo Status Records FoundNo Status Records FoundNo Status Records FoundNo Status Records FoundNo Status Records FoundNo Status Records FoundNo Status Records Found INFORMATION SOURCE (unrecogn ized section and content) DATE CREATED AUTHOR 03/31/2018 [facility] DATE CREATED AUTHOR AUTHOR'S ORGANIZ ATION 04/26/2019 [facility] DATE CREATED AUTHOR AUTHOR'S ORGANIZ ATION 09/23/2021 [facility] DATE CREATED AUTHOR AUTHOR'S ORGANIZ ATION 02/16/2023 [facility] DATE CREATED AUTHOR AUTHOR'S ORGANIZ ATION 08/14/2023 [facility] DATE CREATED AUTHOR AUTHOR'S ORGANIZ ATION 11/13/2023 [facility] DATE CREATED AUTHOR AUTHOR'S ORGANIZ ATION 05/16/2024 [facility] DATE CREATED AUTHOR AUTHOR'S ORGANIZ ATION 07/20/2024 [facility] EPIC Reason for Visit (unrecogniz [...] Care Teams (unrecognized sec tion and content) Digital Ad Trafficker Relationship Specialty Start Date [place] [address] PCP - General Nurse Practitioner 04/21/19 Digital Ad Trafficker Relationship Specialty Start Date End Date Ac Schmid MD [address] [place] [id number] PCP - General Family Medicine 02/08/23 [place] [address] [place] [id number] Referring Physician Family Medicine 09/12/23 Digital Ad Trafficker Relationship Specialty Start Date End Date Ac Schmid MD [address] [place] [phone] PCP - General Family Medicine 02/08/23 Isabella Kaplan MD [address] [place], [place] [id number] Referring Physician Family Medicine 09/12/23 FOR RECORDS [...] BE BASED ON THE PRIMARY CLINICAL RECORDS. [employer] provides no warranty or guarantee of the accuracy or completeness of information in this document.
[2024-09-30 18:17] VITALS: BP 151/104; PULSE 86; TEMP 36.8; O2SAT 98; BMI 35.4
--- NOTE | 2024-09-30 18:39 | ED.BACK1 ---
HPI HPI - Back Pain/Injury General Chief Complaint: Back Pain/Injury Stated Complaint: flank pain Time Seen by Provider: 09/30/24 18:06 Source: patient Mode of arrival: walk-in History of Present Illness HPI Narrative: 44 male with history of kidney stones. He has been under the care of Dr. Interiano in the past to his had to laser the stones. There was nearly 4 years ago. He started noticing some blood in his urine a couple days ago but the pain started today. It is intermittent quite severe over the right flank rating to his right belly. He has not had shakes or chills. He has not been on any antibiotics. He has not taken anything for pain. Related Data Home Medications ?Medication ?Instructions ?Recorded ?Confirmed HYDROCHLOROTHIAZIDE 12.5 mg PO DAILY 06/15/24 06/15/24 allopurinol 100 mg tablet 100 mg PO DAILY 06/15/24 06/15/24 Previous Rx's ?Medication ?Instructions ?Recorded methocarbamol 750 mg tablet 750 mg PO Q6H PRN pain #20 tabs 07/24/24 prednisone 10 mg tablet See Rx Instructions .Route 09/02/24 .COMPLEX #30 tabs Allergies Allergy/AdvReac Type Severity Reaction Status Date / Time Penicillins Allergy Severe Rash Verified 06/27/24 06:38 tramadol (From [facility]) Allergy Severe Rash Verified 06/27/24 06:38 Opioid HPI Opioid Management Most Recent Opioid Data: Last Pain Scale 8 07/24/24 00:12 07/24/24 PFS PFSH Medical History (Updated 09/30/24 @ 18:42 by Damion Whitaker MD) Low back strain ?S39.012A - Strain of muscle, fascia and tendon of lower back, initial encounter (ICD-10) Influenza ?J11.1 - Influenza due to unidentified influenza virus with other respiratory manifestations (ICD-10) Gastroenteritis ?K52.9 - Noninfective gastroenteritis and colitis, unspecified (ICD-10) Bronchiolitis ?J21.9 - Acute bronchiolitis, unspecified (ICD-10) Anxiety ?F41.9 - Anxiety disorder, unspecified (ICD-10) Finger sprain ?S63.619A - Unspecified sprain of unspecified finger, initial encounter (ICD-10) Arthritis ?M19.90 - Unspecified osteoarthritis, unspecified site (ICD-10) Bipolar 1 disorder, depressed ?F31.9 - Bipolar disorder, unspecified (ICD-10) Cluster headaches ?G44.009 - Cluster headache syndrome, unspecified, not intractable (ICD-10) Hypertension ?I10 - Essential (primary) hypertension (ICD-10) DDD (degenerative disc disease) Rectal pain ?K62.89 - Other specified diseases of anus and rectum (ICD-10) Rectal bleeding ?K62.5 - Hemorrhage of anus and rectum (ICD-10) Insomnia ?G47.00 - Insomnia, unspecified (ICD-10) Normal colonoscopy Kidney stones, calcium oxalate ?N20.0 - Calculus of kidney (ICD-10) Anal fissure ?K60.2 - Anal fissure, unspecified (ICD-10) Surgical History (Updated 06/18/24 @ 10:57 by Shagufta Lowe, RN) Hx of colonoscopy ?Z98.890 - Other specified postprocedural states (ICD-10) Status post ORIF of fracture of ankle ?Z98.890 - Other specified postprocedural states (ICD-10) ?Z87.81 - Personal history of (healed) traumatic fracture (ICD-10) Family History Other Family history of COPD (chronic obstructive pulmonary disease) Family history of diabetes mellitus Family history of hypertension Heart disease Multiple kidney stones Social History (Updated 06/18/24 @ 10:55 by Shagufta Lowe, RN) Within the past year, how often did you have a drink containing alcohol: never Score interpretation: A score less than 4 is consistent with normal alcohol consumption. 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 Examining his back he is got no shingles no evidence of skin lesions trauma or injury. Does have tenderness to percussion over the right costovertebral angle. His lungs are completely clear with no wheeze rales or rhonchi. He denies any abdominal discomfort at this time. His extremities are unremarkable Constitutional Vital Signs, click to edit/add: Last Vital Signs Temp 98.2 F 09/30/24 18:17 Pulse 86 09/30/24 18:17 Resp 18 09/30/24 18:17 BP 151/104 H 09/30/24 18:17 Pulse Ox 98 09/30/24 18:17 O2 Del Method Room Air 09/30/24 18:17 Course Vital Signs Vital signs: Vital Signs Temperature 98.2 F 09/30/24 18:17 Pulse Rate 86 09/30/24 18:17 Respiratory Rate 18 09/30/24 18:17 Blood Pressure 151/104 H 09/30/24 18:17 Pulse Oximetry 98 09/30/24 18:17 Oxygen Delivery Method Room Air 09/30/24 18:17 Temperature 98.2 F 09/30/24 18:17 Pulse Rate 86 09/30/24 18:17 Respiratory Rate 18 09/30/24 18:17 Blood Pressure 151/104 H 09/30/24 18:17 Pulse Oximetry 98 09/30/24 18:17 Oxygen Delivery Method Room Air 09/30/24 18:17 Discharge Plan Discharge Chief Complaint: Back Pain/Injury Clinical Impression: Nephrolithiasis Patient Disposition: Still a Patient Prescriptions / Home Meds: No Action allopurinol 100 mg tablet 100 mg PO DAILY HYDROCHLOROTHIAZIDE 12.5 mg 12.5 mg PO DAILY methocarbamol 750 mg tablet 750 mg PO Q6H PRN (Reason: pain) Qty: 20 0RF prednisone 10 mg tablet See Rx Instructions .ROUTE .COMPLEX Qty: 30 0RF Rx Instructions: 4 by mouth daily for three days then 3 by mouth daily for three days then 2 by mouth daily for three days then 1 by mouth daily for three days Print Language: Latvian Referrals: RODRIGUEZ KAPLAN [Primary Care Provider] - 1 week
--- NOTE | 2024-09-30 18:43 | CT_ITS ---
The [address] [address] Patient Name: ARIADNA MONTEIRO MRN: [id number] date: 1980 Sex: M Assigned Patient Location: ER Current Patient Location: ED.MAIN Accession/Order Number: [id number] Exam Date: 09/30/2024 18:47 Report Date: 09/30/2024 19:54 At the request of: SONJA RAMSAY Procedure: CT abdomen pelvis wo con EXAM: CT scan of the abdomen and pelvis without contrast. Dose reduction technique used: Automated exposure control and/or adjustment of the mA and/or kV according to patient size and/or use of iterative reconstruction technique. REASON FOR EXAM: Right flank pain COMPARISON: CT scan dated 10/30/2012 FINDINGS: Predominantly lytic expansile sacral lesion involving the majority of the lower sacrum. This was not present in 2012. This measures approximately 6.7 x 5.1 cm in maximal axial dimensions. Sclerotic lesion in the right iliac bone is new since 2012. Right ureterovesical junction 3 mm stone with mild right hydroureteronephrosis. Multiple bilateral renal lesions are likely represent cysts. Tiny nonobstructing left calyceal tip renal stone. Normal appendix. No free fluid in the abdomen or pelvis. No free intraperitoneal air. No dilated or thickened loops of small bowel or colon. Liver, pancreas, spleen, bilateral kidneys, and bilateral adrenal glands are otherwise unremarkable within the limitations of noncontrast CT. No lymphadenopathy in the abdomen or pelvis. Remainder unremarkable. CT/CT abdomen pelvis wo con IMPRESSION: 1. Expansile lytic sacral lesion measuring up to 6.7 cm concerning for malignancy. Recommend further evaluation with contrast-enhanced sacrococcygeal MRI. 2. Right ureterovesical junction 3 mm stone with mild right hydroureteronephrosis. 3. Indeterminate sclerotic right iliac bone lesion. Electronically authenticated by: KAVEH ESCOBAR Date: 09/30/2024 19:54
[2024-09-30 18:49] LABS: Bilirubin Urine NEGATIVE (NEGATIVE); Blood Urine LARGE (NEGATIVE); Clarity Urine CLEAR (CLEAR); Color Urine YELLOW (YELLOW); Glucose Urine UA NEGATIVE (NEGATIVE); Ketones Urine TRACE mg/dL (NEGATIVE); Leukocyte Esterase Urine NEGATIVE (NEGATIVE); Nitrite Urine NEGATIVE (NEGATIVE); Protein Urine NEGATIVE (NEG/TRACE); Specific Gravity Urine 1.025 (1.005-1.025); Urobilinogen Urine 0.2 EU/dL (0.2-1.0)
[2024-09-30 18:58] LABS: Bacteria Urine NONE SEEN #/HPF (NONE SEEN); Calcium Oxalate Crystals Urine FEW; Cast Seen? NONE SEEN #/LPF (NONE SEEN); Crystals Seen? Seen #/HPF (None Seen); Mucus Urine NONE SEEN (NONE SEEN); Squamous Epithelial Cell Urine RARE #/LPF (NONE/RARE); Starch Urine FEW; Urine Culture Indicated NO; WBC Urine NONE SEEN #/HPF (NONE SEEN)
[2024-09-30] MEDS: ONDANSETRON PF 4 MG/2 ML VIAL IV (19:01)
[2024-09-30] MEDS: KETOROLAC TROMETHAMINE 30 MG/ML VIAL IVP (19:01)
[2024-09-30] MEDS: HYDROMORPHONE HCL 1 MG/ML CARTRIDGE IV ×2 (19:01→19:48)
--- NOTE | 2024-09-30 20:12 | ED.GENADUL1 ---
HPI HPI - General Adult General Chief complaint: Back Pain/Injury Stated complaint: flank pain Time Seen by Provider: 09/30/24 18:06 Source: patient Mode of arrival: walk-in History of Present Illness HPI narrative: 44-year-old male presents to the emergency department for a chief complaint of flank pain. He was initially seen by Dr. Whitaker and signed out to me after discussing the case with him thoroughly. Please see his full history and physical exam Related Data Home Medications ?Medication ?Instructions ?Recorded ?Confirmed HYDROCHLOROTHIAZIDE 12.5 mg PO DAILY 06/15/24 06/15/24 allopurinol 100 mg tablet 100 mg PO DAILY 06/15/24 06/15/24 Previous Rx's ?Medication ?Instructions ?Recorded methocarbamol 750 mg tablet 750 mg PO Q6H PRN pain #20 tabs 07/24/24 prednisone 10 mg tablet See Rx Instructions .Route 09/02/24 .COMPLEX #30 tabs hydrocodone 5 mg-acetaminophen 325 1 tab PO Q6H PRN pain 5 days #20 09/30/24 mg tablet tabs Allergies Allergy/AdvReac Type Severity Reaction Status Date / Time Penicillins Allergy Severe Rash Verified 06/27/24 06:38 tramadol (From Ultra) Allergy Severe Rash Verified 06/27/24 06:38 Opioid HPI Opioid Management Most Recent Opioid Data: Last Pain Scale 7 09/30/24 19:48 09/30/24 PFS PFS Medical History (Updated 09/30/24 @ 18:42 by Damion Whitaker MD) Low back strain ?S39.012A - Strain of muscle, fascia and tendon of lower back, initial encounter (ICD-10) Influenza ?J11.1 - Influenza due to unidentified influenza virus with other respiratory manifestations (ICD-10) Gastroenteritis ?K52.9 - Noninfective gastroenteritis and colitis, unspecified (ICD-10) Bronchiolitis ?J21.9 - Acute bronchiolitis, unspecified (ICD-10) Anxiety ?F41.9 - Anxiety disorder, unspecified (ICD-10) Finger sprain ?S63.619A - Unspecified sprain of unspecified finger, initial encounter (ICD-10) Arthritis ?M19.90 - Unspecified osteoarthritis, unspecified site (ICD-10) Bipolar 1 disorder, depressed ?F31.9 - Bipolar disorder, unspecified (ICD-10) Cluster headaches ?G44.009 - Cluster headache syndrome, unspecified, not intractable (ICD-10) Hypertension ?I10 - Essential (primary) hypertension (ICD-10) DDD (degenerative disc disease) Rectal pain ?K62.89 - Other specified diseases of anus and rectum (ICD-10) Rectal bleeding ?K62.5 - Hemorrhage of anus and rectum (ICD-10) Insomnia ?G47.00 - Insomnia, unspecified (ICD-10) Normal colonoscopy Kidney stones, calcium oxalate ?N20.0 - Calculus of kidney (ICD-10) Anal fissure ?K60.2 - Anal fissure, unspecified (ICD-10) Surgical History (Updated 06/18/24 @ 10:57 by Shagufta Lowe, RN) Hx of colonoscopy ?Z98.890 - Other specified postprocedural states (ICD-10) Status post ORIF of fracture of ankle ?Z98.890 - Other specified postprocedural states (ICD-10) ?Z87.81 - Personal history of (healed) traumatic fracture (ICD-10) Family History Other Family history of COPD (chronic obstructive pulmonary disease) Family history of diabetes mellitus Family history of hypertension Heart disease Multiple kidney stones Social History (Updated 06/18/24 @ 10:55 by Shagufta Lowe, RN) Within the past year, how often did you have a drink containing alcohol: never Score interpretation: A score less than 4 is consistent with normal alcohol consumption. 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 Highest level of school completed/degree received: high school graduate Little interest or pleasure in doing things: not at all Feeling down, depressed, or hopeless: not at all Exam Constitutional Vital Signs, click to edit/add: Last Vital Signs Temp 98.2 F 09/30/24 18:17 Pulse 86 09/30/24 18:17 Resp 18 09/30/24 18:17 BP 151/104 H 09/30/24 18:17 Pulse Ox 98 09/30/24 18:17 O2 Del Method Room Air 09/30/24 18:17 Course Vital Signs Vital signs: Vital Signs Temperature 98.2 F 09/30/24 18:17 Pulse Rate 86 09/30/24 18:17 Respiratory Rate 18 09/30/24 18:17 Blood Pressure 151/104 H 09/30/24 18:17 Pulse Oximetry 98 09/30/24 18:17 Oxygen Delivery Method Room Air 09/30/24 18:17 Temperature 98.2 F 09/30/24 18:17 Pulse Rate 86 09/30/24 18:17 Respiratory Rate 18 09/30/24 18:17 Blood Pressure 151/104 H 09/30/24 18:17 Pulse Oximetry 98 09/30/24 18:17 Oxygen Delivery Method Room Air 09/30/24 18:17 Medical Decision Making MDM Narrative Medical decision making narrative: CT findings of the stone were discussed with the patient. He is able to be discharged home and was prescribed [place] and he will follow-up with his urologist. It is at the UV junction. The lytic finding of the sacrum is known to the patient and he is seeing a back specialist and has an appointment with him on October 05. He also had a recent MRI. Treatment diagnosis and follow-up were discussed with the patient. Differential Diagnosis Differential Diagnosis: Kidney stone, muscle strain, hydronephrosis Lab Data Lab results reviewed: Yes I reviewed the patient's lab results Labs: Lab Results 09/30/24 Range/Units 18:20 Urine Color Yellow (YELLOW) Urine Clarity Clear (CLEAR) Urine pH 6.0 (5.0-9.0) Ur Specific [place] 1.025 (1.005-1.025) Urine Protein Negative (NEG/TRACE) mg/dL Urine Glucose (UA) Negative (NEGATIVE) mg/dL Urine Ketones Trace A (NEGATIVE) mg/dL Urine Occult Blood Large A (NEGATIVE) Urine Nitrite Negative (NEGATIVE) Urine Bilirubin Negative (NEGATIVE) Urine Urobilinogen 0.2 (0.2-1.0) EU/dL Ur Leukocyte Esterase Negative (NEGATIVE) Urine RBC 2-5 A (0-2) #/HPF Urine WBC None seen (NONE SEEN) #/HPF Ur Squamous Epith Cells Rare (NONE/RARE) #/LPF Urine Crystals Seen A (None Seen) #/HPF Calcium Oxalate Crystal Few Urine Bacteria None seen (NONE SEEN) #/HPF Urine Casts None seen (NONE SEEN) #/LPF Urine Starch Few Urine Mucus None seen (NONE SEEN) Ur Culture Indicated? No Imaging Data CT scan - abdomen: Radiologist's impression: ITS Impressions Abdomen/Pelvis CT 09/30/24 18:43 IMPRESSION: 1. Expansile lytic sacral lesion measuring up to 6.7 cm concerning for malignancy. Recommend further evaluation with contrast-enhanced sacrococcygeal MRI. 2. Right ureterovesical junction 3 mm stone with mild right hydroureteronephrosis. 3. Indeterminate sclerotic right iliac bone lesion. Electronically authenticated by: KAVEH ESCOBAR Date: 09/30/2024 19:54 Discharge Plan Discharge Chief Complaint: Back Pain/Injury Clinical Impression: Nephrolithiasis Patient Disposition: Home, Self-Care Time of Disposition Decision: 20:09 Condition: Good Mode of Transportation: Private Vehicle Prescriptions / Home Meds: New hydrocodone-acetaminophen 5-325 mg tablet 1 tab PO Q6H PRN (Reason: pain) 5 Days Qty: 20 0RF No Action allopurinol 100 mg tablet 100 mg PO DAILY HYDROCHLOROTHIAZIDE 12.5 mg 12.5 mg PO DAILY methocarbamol 750 mg tablet 750 mg PO Q6H PRN (Reason: pain) Qty: 20 0RF prednisone 10 mg tablet See Rx Instructions .ROUTE .COMPLEX Qty: 30 0RF Rx Instructions: 4 by mouth daily for three days then 3 by mouth daily for three days then 2 by mouth daily for three days then 1 by mouth daily for three days Print Language: Czech Instructions: Kidney Stones (ED), How to Strain Your Urine (ED) Referrals: RODRIGUEZ KAPLAN [Primary Care Provider] - 1 week Sahil Interiano MD [Physician] -
[2024-09-30] MEDS: HYDROCODONE/ACET 5-325 MG TABLET 1 TAB PO ×2 (20:38→20:43)
== END 2024-09-30 20:52 | disposition home or self-care (01) ==
PROVIDERS: Physician Assistant; Emergency Provider Emergency Medicine; PCP Nurse Practitioner Family
DX: N20.0 Calculus of kidney (principal); Z87.442 Personal history of urinary calculi
CPT/HCPCS: 74176; 81001; 96374; 96375; 96376; 99285; J1171; J1885; J2405

== ENCOUNTER 2024-10-03 08:28 | Outpatient (RCR) | payer BC, SELFPAY | END 2024-10-27 10:15 | disposition home or self-care (01) | LOC: PT 08:28 | PROVIDERS: PCP Nurse Practitioner Family; Visit Provider Nurse Practitioner Family | DX: M54.30 Sciatica, unspecified side (principal) | CPT/HCPCS: 97110 ==

== ENCOUNTER 2024-10-15 12:46 | Outpatient (OUT) | payer MEDICAID, SELFPAY ==
--- NOTE | 2024-10-15 14:22 | P.CN_ITS ---
Consult Note: HPI Data of Consult Patient: new to practice Consult date: 10/15/24 Requesting Physician: Lee Maradiaga MD Primary Care Provider: RODRIGUEZ KAPLAN Consult Narrative Reason for consult: low back, bilateral LE pain Narrative: 44yom who presents for evaluation. notes persistence of pain from low back into bilateral LEs. imaging reviewed, shows disc herniation at L4-5. recently saw spine surgeon, who recommended YONI at L4-5. has completed 6 weeks of PT last month, which did not help. uses otc meds as needed. denies adverse med side effects. cc:: CC: Lee Maradiaga MD Review of Systems ROS Status of ROS 10 or more systems reviewed and unremark able except as noted in history and below [facility] Medical History Low back strain ?S39.012A - Strain of muscle, fascia and tendon of lower back, initial encounter (ICD-10) Influenza ?J11.1 - Influenza due to unidentified influenza virus with other respiratory manifestations (ICD-10) Gastroenteritis ?K52.9 - Noninfective gastroenteritis and colitis, unspecified (ICD-10) Bronchiolitis ?J21.9 - Acute bronchiolitis, unspecified (ICD-10) Anxiety ?F41.9 - Anxiety disorder, unspecified (ICD-10) Finger sprain ?S63.619A - Unspecified sprain of unspecified finger, initial encounter (ICD- 10) Arthritis ?M19.90 - Unspecified osteoarthritis, unspecified site (ICD-10) Bipolar 1 disorder, depressed ?F31.9 - Bipolar disorder, unspecified (ICD-10) Cluster headaches ?G44.009 - Cluster headache syndrome, unspecified, not intractable (ICD-10) Hypertension ?I10 - Essential (primary) hypertension (ICD-10) DDD (degenerative disc disease) Rectal pain ?K62.89 - Other specified diseases of anus and rectum (ICD-10) Rectal bleeding ?K62.5 - Hemorrhage of anus and rectum (ICD-10) Insomnia ?G47.00 - Insomnia, unspecified (ICD-10) Normal colonoscopy Kidney stones, calcium oxalate ?N20.0 - Calculus of kidney (ICD-10) Anal fissure ?K60.2 - Anal fissure, unspecified (ICD-10) Surgical History Hx of colonoscopy ?Z98.890 - Other specified postprocedural states (ICD-10) Status post ORIF of fracture of ankle ?Z98.890 - Other specified postprocedural states (ICD-10) ?Z87.81 - Personal history of (healed) traumatic fracture (ICD-10) Family History Other Family history of COPD (chronic obstructive pulmonary disease) Family history of diabetes mellitus Family history of hypertension Heart disease Multiple kidney stones Social History Within the past year, how often did you have a drink containing alcohol: never Score interpretation: A score less than 4 is consistent with normal alcohol consumption. 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 Highest level of school completed/degree received: high school graduate Little interest or pleasure in doing things: not at all Feeling down, depressed, or hopeless: not at all Meds Home Medications and Allergies Home Medications ?Medication ?Instructions ?Recorded ?Confirmed ?Type HYDROCHLOROTHIAZIDE 12.5 mg PO DAILY 06/15/24 06/15/24 History allopurinol 100 mg tablet 100 mg PO DAILY 06/15/24 06/15/24 History methocarbamol 750 mg tablet 750 mg PO Q6H PRN pain #20 tabs 07/24/24 Rx prednisone 10 mg tablet See Rx Instructions .Route 09/02/24 Rx .COMPLEX #30 tabs hydrocodone 5 mg-acetaminophen 325 1 tab PO Q6H PRN pain 5 days #20 09/30/24 Rx mg tablet tabs Allergies Allergy/AdvReac Type Severity Reaction Status Date / Time Penicillins Allergy Severe Rash Verified 06/27/24 06:38 tramadol (From Ultram) Allergy Severe Rash Verified 06/27/24 06:38 Exam Narrative Exam Narrative: Psych-alert and oriented x 3. Attentive and appropriate, constitutionally normal, displays normal mood and affect per situation. There are no obvious deficits in memory, reasoning, or intellect.? Skin-no obvious rashes, bruising, erythema noted to the patient's area of pain.? Extremities- extremities are warm with minimal edema and palpable pulses. Lumbar-tenderness to palpation noted in the lumbar spine and paraspinal musculature. Pain is not elicited with flexion, extension, and lateral rotation of the lumbar spine. Range of motion is not diminished with these motions. Facet loading maneuvers are negative.? Strength-noted to be unremarkable Sensory-no notable sensory deficits in the bilateral lower extremities to touch or pinprick in all dermatomal distributions with the exception to decreased sensation to the bilateral L4, 5 dermatomal distribution Coordination remains intact.? Gait remains non-antalgic. Assessment and Plan Assessment and Plan (1) Lumbar stenosis with neurogenic claudication: (2) Lumbar spondylosis: Plan 44yom who presents for evaluation. failed conservative measures, as noted. imaging reviewed, as noted. given symptoms and imaging, prudent to attempt bilateral l4-5 tfesi under fluoroscopic guidance, as recommended by his spinal surgeon. he is in agreement. meds reviewed, no changes. follow up after procedure.
== END 2024-10-15 12:47 | disposition home or self-care (01) ==
LOC: PM 12:47
PROVIDERS: PCP Nurse Practitioner Family; Visit Provider Anesthesiology
DX: M48.062 Spinal stenosis, lumbar region with neurogenic claudication (principal); M47.816 Spondylosis without myelopathy or radiculopathy, lumbar region
CPT/HCPCS: G0463

== ENCOUNTER 2024-10-22 07:36 | Day surgery (SDC) | payer MEDICAID, SELFPAY ==
--- OUTSIDE RECORDS SUMMARY | 2024-10-22 07:39 | XMS_ITS | CCD ---
Author Organization [facility] Care Team Providers Care Ski Maker Name Role Phone Nilo Mendez Unavailable Unavailable FRUTH, JEAN Primary Care Unavailable KENYATTA KEN Attending Unavailable CHIRRI, ARTEMIO Consulting Unavailable Mikala, Clari A Primary Care Provider Mikala, Clari A Primary Care Provider [phone] Mikala, Clari A Primary Care Provider MIKALA, [...] Unavailable MIKALA, CLARI A Primary Care Physician [phone] ISABELLA KAPLAN Referring Unavailable David DIAMOND Attending Unavailable EUSEBIO, ISABELLA S Referring Unavailable David DIAMOND Attending Unavailable Ac Schmid MD Primary Care Provider [phone] Isabella Kaplan MD Unavailable NICOLETTE, RUTH ANN [...] (13 sources) traMADol Drug Allergy 6 Rash [facility] Penicillins (antibiotic) (13 sources) Penicillins Drug Allergy 1 Rash [facility] (7 sources) Penicillins; Translations: [penicillins] Propensity to adverse reactions to drug 1 Rash, Eruption of skin (disorder) [place], [place] (9 sources) traMADol; Translations: [tramadol] Drug Allergy 6 Rash, Eruption of skin (disorder) [place] (1 source) Penicillin Drug Allergy 8 [facility] Repository (2 sources) traMADol; Translations: [Ultram] Drug Allergy [facility] Repository (3 sources) Naproxen Drug Allergy 3 Rash [facility] Healthcare (3 sources) Penicillins Drug Allergy 3 Hives [facility] Healthcare Medications Current Medications Medication Drug [...] 20 cap(s), Refills(s) 0, Pharmacy: [facility]22, 160, cm, 05/04/21 15:08:00 EDT, [...] you for choosing us for your care. [facility] Ambulatory Visit Summary Ambulatory Visit Summary JUNIOR [...] for choosing us for your care. Normal [facility] Physician Referralon 023 Physician Referral [phone] 02 [id number] TIFF Normal [facility] MRI LSPINE WO CONon 05-21-20 22 [...] MICHAEL RAE Date: 2022-05-21 18:38 Normal [facility] XR FOREIGN BODY EYEon 2021 XR FOREIGN BODY EYE EXAMINATION: XR FOREIGN BODY EYE HISTORY: Foreign body in eye COMPARISON: No relevant comparison available. FINDINGS: ORBITS: Negative for a metallic foreign body. OTHER: Negative. IMPRESSION: 1. No metallic foreign body within the orbits. Electronically authenticated by: APRYL RIOS Date: 2022-05-21 10:36 Normal [facility] XR LSPINE MIN 4 VIEWSon [...] APRYL RIOS Date: 2022-02-22 11:06 Normal [facility] CBC with Diffon 09-23-2021 Abs. Basophil 0.02 k/uL Normal 0.0-0.2 [facility] Comment on above: Performed By: #### C ELOY LOPEZ, IPF ####[address] , [place] [id number] lab Director: Michael Meyer MD Abs.Imm.Granulocyte 0.02 k/uL Normal 0.00-0.30 [facility] Comment on above: Performed By: #### C ELOY LOPEZ, IPF ####[address] [place] [address] lab Director: Michael Meyer MD Abs.Neutrophil (Seg) 1.28 k/uL Low 1.50-8.10 [facility] Comment on above: Performed By: #### C ELOY LOPEZ, IPF ####[address] , [place] [phone] Director: Michael Meyer MD Basophils/100 WBC (Bld) 1 % Normal 0-2 [facility] Comment on above: Performed By: #### C DP, CP, IPF ####[address] [place] [address] Lab Director: Michael Meyer MD Eosinophils (Bld) [#/Vol] 0.00 10*3/uL Normal 0.00-0.44 [facility] Comment on above: Performed By: #### C DP, CP, IPF ####[address] , [facility]83[facility])[phone] Director: Michael Meyer MD Eosinophils/100 WBC (Bld) 0 % Low 1-4 [facility] Comment on above: Performed By: #### C JESSICA CP, IPF ####[address] , [facility]83[facility])[phone] Director: Michael Meyer MD Immature granulocytes/100 WBC (Bld) 1 % High 0 [facility] Comment on above: Performed By: #### C JESSICA, CP, IPF ####[address] , [facility]83419)[phone] Director: Michael Meyer MD Lymphocytes (Bld) [#/Vol] 0.73 10*3/uL Low 1.10-3.70 [facility] Comment on above: Performed By: #### C DP, CP, IPF ####[address] , [place] [phone] Director: Michael Meyer MD Lymphocytes/100 WBC (Bld) 33 % Normal 24-43 [facility] Comment on above: Performed By: #### C DP, CP, IPF ####[address] , [place] 8759383 Lab Director: Michael Meyer MD Monocytes (Bld) [#/Vol] 0.15 10*3/uL Normal 0.10-1.20 [facility] Comment on above: Performed By: #### C DP CP, IPF ####[address] [place] [address] Lab Director: Michael Meyer MD Monocytes/100 WBC (Bld) 7 % Normal 3-12 [facility] Comment on above: Performed By: #### C DP, CP, IPF ####[address] , [place] [phone] Director: Michael Meyer MD Morphology Fernando (Bld) [Interp] Platelet scan shows Normal Platelets Normal [facility] Comment on above: Performed By: #### C JESSICA CP, IPF ####[address] , [place] [phone] Director: Michael Meyer MD Neutrophil (Seg) 58 % Normal 36-65 [facility] Comment on above: Performed By: #### C JESSICA CP, IPF ####[address] , [facility]83[facility])[phone] Director: Michael Meyer MD Erythrocyte distribution width (RBC) [Ratio] 11.2 % Low 11.8-14.4 [facility] Comment on above: Performed By: #### C JESSICA CP, IPF ####[address] , [facility]83[facility])[phone] Director: Michael Meyer MD Hematocrit (Bld) [Volume fraction] 46.3 % Normal 40.7-50.3 [facility] Comment on above: Performed By: #### C DP, CP, IPF ####[address] [place] [address] Lab Director: Michael Meyer MD Hemoglobin (Bld) [Mass/Vol] 15.6 g/dL Normal 13.0-17.0 [facility] Comment on above: Performed By: #### C DP, CP, IPF ####[address] , [facility] Director: Michael Meyer MD MCH (RBC) [Entitic mass] 28.5 pg Normal 25.2-33.5 [facility] Comment on above: Performed By: #### C DP, CP, IPF ####[address] , [facility]22([facility])[phone] Director: Michael Meyer MD MCHC (RBC) [Mass/Vol] 33.7 g/dL Normal 28.4-34.8 [facility] Comment on above: Performed By: #### C DP, CP, IPF ####[address] , [place] [address])[phone] Director: Michael Meyer MD MCV (RBC) [Entitic vol] 84.6 fL Normal 82.6-102.9 [facility] Comment on above: Performed By: #### C DP, CP, IPF ####[address] , [facility]83 [facility] Director: Michael Meyer MD NRBC Automated 0.0 per 100 WBC Normal 0.0 [facility] Comment on above: Performed By: #### C DP, CP, IPF ####[address] , [place] [address])[phone] Director: Michael Meyer MD Platelet Count See Reflexed IPF Result Normal 138-453 [facility] Comment on above: Performed By: #### C DP, CP, IPF ####[address] , [facility]83 lab Director: Michael Meyer MD RBC (Bld) [#/Vol] 5.47 10*6/uL Normal 4.21-5.77 [facility] Comment on above: Performed By: #### C DP, CP, IPF ####[address] [place] [address] Lab Director: Michael Meyer MD WBC (Bld) [#/Vol] 2.2 10*3/uL Low 3.5-11.3 [facility] Comment on above: Performed By: #### C DP, CP, IPF ####[address] [place] [address] Lab Director: Michael Meyer MD Auto Diff Performed NOT REPORTED Normal [facility] Comment on above: Performed By: #### C DP, CP, IPF ####[address] [place] [address] Lab Director: Michael Meyer MD MPV NOT REPORTED Normal 8.1-13.5 [facility] Comment on above: Performed By: #### C DP, CP, IPF ####[address] [place] [address] Lab Director: Michael Meyer MD Platelet Comment NOT REPORTED Normal [facility] Comment on above: Performed By: #### C DP, CP, IPF ####[address] [place] [address] Lab Director: Michael Meyer MD RBC morphology finding Nom (Bld) NOT REPORTED Normal [facility] Comment on above: Performed By: #### C DP, CP, IPF ####[address] [place] [address] Lab Director: Michael Meyer MD WBC Morphology NOT REPORTED Normal [facility] Comment on above: Performed By: #### C DP, CP, IPF ####[address] [place] [address] Lab Director: Michael Meyer MD Comp Metabolic Profon 2020 (cont.) Normal [facility] Comment on above: Result Comment: Aver age GFR for 40-49 years old: 99 mL/min/1.73sq m Chronic Kidney Disease: <60 mL/min/1.73sq m Kidney failure: <15 mL/min/1.73sq m eGFR calculated using average adult body mass. Additional eGFR calculator available at: http://www.[employer]/multiple_crcl_2012.htm Performed By: #### C DP, CP, IPF ####[address] , [place] [phone] Director: Michael Meyer MD Albumin [Mass/Vol] 4.1 g/dL Normal 3.5-5.2 [facility] Comment on above: Performed By: #### C DP, CP, IPF ####[address] [place] [address] Lab Director: Michael Meyer MD Albumin/Glob Ratio 1.1 Normal 1.0-2.5 [facility] Comment on above: Performed By: #### C DP, CP, IPF ####[address] [place] [address] Lab Director: Michael Meyer MD Alkaline Phos 87 U/L Normal 40-129 [facility] Comment on above: Performed By: #### C DP, CP, IPF ####[address] [place] [address] Lab Director: Michael Meyer MD ALT [Catalytic activity/Vol] 65 U/L High 5-41 [facility] Comment on above: Performed By: #### C DP, CP, IPF ####[address] [place] [address] Lab Director: Michael Meyer MD Anion gap [Moles/Vol] 13 mmol/L Normal 9-17 [facility] Comment on above: Performed By: #### C DP, CP, IPF ####[address] [place] [address] Lab Director: Michael Meyer MD AST [Catalytic activity/Vol] 68 U/L High <40 [facility] Comment on above: Performed By: #### C DP, CP, IPF ####[facility] [place] , [place] 48[address] Lab Director: Michael Meyer MD Bilirubin [Mass/Vol] 0.52 mg/dL Normal 0.3-1.2 [facility] Comment on above: Performed By: #### C DP, CP, IPF ####[address] , [place] 7898683 Lab Director: Michael Meyer MD BUN/CRE Ratio 8 Low 9-20 [facility] Comment on above: Performed By: #### C DP, CP, IPF ####[address] , [place] 9550983 Lab Director: Michael Meyer MD Calcium [Mass/Vol] 8.8 mg/dL Normal 8.6-10.4 [facility] Comment on above: Performed By: #### C DP, CP, IPF ####[address] , [place] 6969483 Lab Director: Michael Meyer MD Chloride [Moles/Vol] 100 mmol/L Normal 98-107 [facility] Comment on above: Performed By: #### C DP, CP, IPF ####[address] , [place] 952[address]83 Lab Director: Michael Meyer MD CO2 [Moles/Vol] 23 mmol/L Normal 20-31 [facility] Comment on above: Performed By: #### C DP, CP, IPF ####[address] , [place] 7305483 Lab Director: Michael Meyer MD Creatinine [Mass/Vol] 1.55 mg/dL High 0.70-1.20 [facility] Comment on above: Performed By: #### C DP, CP, IPF ####[address] [place] [address] Lab Director: Michael Meyer MD GFR, Amer >60 Normal >60 [facility] Comment on above: Performed By: #### C DP, CP, IPF ####[address] [place] [address] Lab Director: Michael Meyer MD GFR,non Amer 50 mL/min Low >60 [facility] Comment on above: Performed By: #### C DP, CP, IPF ####[address] [place] [address] lab Director: Michael Meyer MD Glucose [Mass/Vol] 94 mg/dL Normal 70-99 [facility] Comment on above: Performed By: #### C DP, CP, IPF ####[address] [place] [address] Lab Director: Michael Meyer MD Potassium [Moles/Vol] 3.9 mmol/L Normal 3.7-5.3 [facility] Comment on above: Performed By: #### C DP, CP, IPF ####[address] [place] [address] Lab Director: Michael Meyer MD Protein [Mass/Vol] 7.9 g/dL Normal 6.4-8.3 [facility] Comment on above: Performed By: #### C DP, CP, IPF ####[address] [place] [address] Lab Director: Michael Meyer MD Sodium [Moles/Vol] 136 mmol/L Normal 135-144 [facility] Comment on above: Performed By: #### C DP, CP, IPF ####[address] , [place] 86[address]83 [facility] Director: Michael Meyer MD Staging: Normal [facility] Comment on above: Result Comment: Stag e 1: Some kidney damage normal GFR Stage 2: Mild kidney damage GFR 60-89 Stage 3: Moderate kidney damage GFR 30-59 Stage 4: Severe kidney damage GFR 15-29 Stage 5: Severe kidney damage GFR <15 ESRD - chronic treatment by dialysis or transplant Performed By: #### C ELOY LOPEZ, IPF ####[address] , [facility] Director: Michael Meyer MD Urea nitrogen [Mass/Vol] 13 mg/dL Normal 6-20 [facility] Comment on above: Performed By: #### C ELOY LOPEZ, IPF ####[address] , [facility] Director: Michael Meyer MD Lactic Acidon 09-23-2021 Lactate [Moles/Vol] 0.9 mmol/L Normal 0.5-2.2 [facility] Comment on above: Performed By: #### L ACTIC ####[address] , [facility] Director: Michael Meyer MD Lactic Acid,Whole Bl NOT REPORTED Normal 0.7-2.1 [facility] Comment on above: Performed By: #### L ACTIC ####[address] , [facility]83 [facility] Director: Michael Meyer MD PLT, Immature Fract.on 09-23 Platelet, Fluoresc. 42 k/uL Low 138-453 [facility] Comment on above: Performed By: #### C ELOY LOPEZ, IPF #### [address] [place] [id number] Senior Engineering Specialist: Michael Meyer MD PLT, Immature Fract. 1.2 % Normal 1.1-10.3 [facility] Comment on above: Performed By: #### C ELOY LOPEZ, IPF #### [address] [place], [place] [address]83 Senior Engineering Specialist: Michael Meyer MD XR CHEST (SINGLE VIEW [...] by: Will Calderón 09/22/21 Final result Normal [facility] Resp Viral Panelon Adenovirus Not detected Normal [facility] Comment on above: Performed By: #### R WALLPAPER EMBOSSER HELPER ####[place] [address] [place] [address] Lab Director: Juan R Tang[address] [place] [address] Lab Director: MD Guille Oviedodet.parapertussis Not detected Normal [facility] Comment on above: Performed By: #### R WALLPAPER EMBOSSER HELPER ####[address] [address] Lab Director: Juan R Tang[address] 4459183 Lab Director: Michael Meyer MD Bordetella pertussis Not detected Normal [facility] Comment on above: Performed By: #### R WALLPAPER EMBOSSER HELPER ####[place] [address] [place] [address] Lab Director: Juan R Tang[address] 2208183 Lab Director: Michael Meyer MD Chlamyd.pneumoniae Not detected Normal [facility] Comment on above: Performed By: #### R WALLPAPER EMBOSSER HELPER ####[facility] [address] [place] [address] Lab Director: Juan R Tang[address] [place] [address] Lab Director: Michael Meyer MD Coronavirus 229E Not detected Normal [facility] Comment on above: Performed By: #### R WALLPAPER EMBOSSER HELPER ####[facility] [address] [place] [address] Lab Director: Juan R [facility] [place] [phone] Director: Michael Meyer MD Coronavirus HKU1 Not detected [facility] Comment on above: Performed By: #### R WALLPAPER EMBOSSER HELPER ####[facility] [address] [place] [address] Lab Director: Juan R Tang[address] [place] [address] Lab Director: Michael Meyer MD Coronavirus NL63 Not detected [facility] Comment on above: Performed By: #### R WALLPAPER EMBOSSER HELPER ####[address] [address] Lab Director: Juan R Tang[address] [place] [address] Lab Director: Michael Meyer MD Coronavirus OC43 Not detected [facility] Comment on above: Performed By: #### R WALLPAPER EMBOSSER HELPER ####[facility] [address] [place] [address] Lab Director: Juan R Tang[address] [place] [address] Lab Director: Michael Meyer MD Human Metapneumo Not detected Normal [facility] Comment on above: Performed By: #### R WALLPAPER EMBOSSER HELPER ####[facility] [address] [place] [address] Lab Director: Juan R [facility] [place] [address] Lab Director: Michael Meyer MD Influenza A Not detected Normal [facility] Comment on above: Performed By: #### R WALLPAPER EMBOSSER HELPER ####[facility] [address] [place] [address] Lab Director: Juan R [facility] [place] [address] Lab Director: Michael Meyer MD Influenza B Not detected [facility] Comment on above: Performed By: #### R WALLPAPER EMBOSSER HELPER ####[facility] [address] [place] [address] Lab Director: Juan R Tang[address] [place] [address] Lab Director: Michael Meyer MD Mycoplas.pneumoniae Not detected Normal [facility] Comment on above: Result Comment: Perf ormed by multiplexed nucleic acid assay. Performed By: #### R WALLPAPER EMBOSSER HELPER ####[facility] [address] [place] [address] Lab Director: Juan R Tang[address] [place] [address] Lab Director: Michael Meyer MD Parainfluenza 1 Not detected Normal [facility] Comment on above: Performed By: #### R WALLPAPER EMBOSSER HELPER ####[facility] [address] [place] [address] Lab Director: Juan R Tang[address] [place] [address] Lab Director: Michael Meyer MD Parainfluenza 2 Not detected Normal [facility] Comment on above: Performed By: #### R WALLPAPER EMBOSSER HELPER ####[facility] [address]00 [place] [address] Lab Director: Juan R Tang[address] [place] [address] Lab Director: Michael Meyer MD Parainfluenza 3 Not detected Normal [facility] Comment on above: Performed By: #### R WALLPAPER EMBOSSER HELPER ####[facility] [address]86 [place], [place] [id number])[phone] Director: Juan R [facility] , [place] 6923583 Lab Director: Michael Meyer MD Parainfluenza 4 Not detected Normal [facility] Comment on above: Performed By: #### R WALLPAPER EMBOSSER HELPER ####[facility] [address] [place], [place] [id number])[phone] Director: Juan R Tang[address] [place] [address] Lab Director: Michael Meyer MD Resp Syncytial Virus Not detected Normal [facility] Comment on above: Performed By: #### R WALLPAPER EMBOSSER HELPER ####[facility] [address] [place], [place] [id number])[phone] Director: Juan R Tang[address] [place] [address] Lab Director: Michael Meyer MD Rhino/Enterovirus Not detected Normal [facility] Comment on above: Performed By: #### R WALLPAPER EMBOSSER HELPER ####[facility] [address] [place], [place] [id number])[phone] Director: Juan R Tang[address] [place] [address] Lab Director: Michael Meyer MD SARS-CoV-2 (COVID-19) RNA LYNDON+probe Ql (Unsp spec) Detected Abnormal [facility] Comment on above: Result Comment: Resu lts reported to the appropriate Health Department Performed By: #### R WALLPAPER EMBOSSER HELPER ####[facility] [address] [place], [place] [id number])[phone] Director: Juan R Tang[address] [place] [address] Lab Director: Michael Meyer MD Resp Viral Panelon 1 Source: .NASOPHARYNGEAL SWAB Normal [facility] Comment on above: Performed By: #### R WALLPAPER EMBOSSER HELPER ####[facility] [address]usi[address]23 [place], [place] [id number])[phone] Director: Juan R Tang[address] [place] [address] Lab Director: Michael Meyer MD Influenza A H1 NOT REPORTED Normal [facility] Comment on above: Performed By: #### R WALLPAPER EMBOSSER HELPER ####[facility] [address]695 [place], [place] [id number])[phone] Director: Juan R Tang[address] [place] [address] Lab Director: Michael Meyer MD Influenza A H1-2009 NOT REPORTED Normal [facility] Comment on above: Performed By: #### R WALLPAPER EMBOSSER HELPER ####[facility] [address] [place], [place] [id number])[phone] Director: Juan R Tang[address] [place] [address] Lab Director: Michael Meyer MD Influenza A H3 NOT REPORTED Normal [facility] Comment on above: Performed By: #### R WALLPAPER EMBOSSER HELPER ####[facility] Qlnzb[address]ztakvw8366 [place] [address] Lab Director: Juan R Tang, [facility] [place] [address] , [place] 6549583 Lab Director: Michael Meyer MD No Panel Informationon 09-13 No acute findings. [facility] EXAMINATION: THREE XRAY VIEWS OF THE RIGHT ANKLE; THREE XRAY VIEWS OF THE LEFT FOOT 09/13/2021 9:16 am COMPARISON: None. HISTORY: ORDERING SYSTEM PROVIDED HISTORY: Pain TECHNOLOGIST PROVIDED HISTORY: Pain FINDINGS: No acute fracture demonstrated. 2 threaded screws noted medial malleolus from repair prior injury. Alignment anatomic. Small plantar and dorsal calcaneal spurs present. Yzbm-wh-gpnyqqsz degenerative change primarily midfoot. Overall alignment anatomic. Soft tissues unremarkable. [facility] Jeronimo Art DO - 09/13/2021 EXAMINATION: THREE XRAY VIEWS OF THE RIGHT ANKLE; THREE XRAY VIEWS OF THE LEFT FOOT 09/13/2021 9:16 am COMPARISON: None. HISTORY: ORDERING SYSTEM PROVIDED HISTORY: Pain TECHNOLOGIST PROVIDED HISTORY: Pain FINDINGS: No acute fracture demonstrated. 2 threaded screws noted medial malleolus from repair prior injury. Alignment anatomic. Small plantar and dorsal calcaneal spurs present. Tvzo-hl-oqthdkjx degenerative change primarily midfoot. Overall alignment anatomic. Soft tissues unremarkable. IMPRESSION: No acute findings. [facility] [employer] Work Phone: [facility] [employer] Work Phone: No acute findings. [facility] EXAMINATION: THREE XRAY VIEWS OF THE RIGHT FOOT; THREE XRAY VIEWS OF THE LEFT ANKLE 09/13/2021 9:14 am COMPARISON: None. HISTORY: ORDERING SYSTEM PROVIDED HISTORY: pain TECHNOLOGIST PROVIDED HISTORY: pain FINDINGS: No acute fracture demonstrated. Alignment is anatomic. 2 threaded screws noted within the medial malleolus. Hfov-sw-desvcrel degenerative change primarily midfoot. Small plantar and dorsal calcaneal spurs present. Soft tissues unremarkable. [facility] Jeronimo Art DO - 09/13/2021 EXAMINATION: THREE XRAY VIEWS OF THE RIGHT FOOT; THREE XRAY VIEWS OF THE LEFT ANKLE 09/13/2021 9:14 am COMPARISON: None. HISTORY: ORDERING SYSTEM PROVIDED HISTORY: pain TECHNOLOGIST PROVIDED HISTORY: pain FINDINGS: No acute fracture demonstrated. Alignment is anatomic. 2 threaded screws noted within the medial malleolus. Ffwi-dt-rhuaqgxa degenerative change primarily midfoot. Small plantar and dorsal calcaneal spurs present. Soft tissues unremarkable. IMPRESSION: No acute findings. [employer] Phone: No Panel InformationOrdered By: Jeronimo Art on 09-13-2021 [employer] Phone: XR ANKLE LEFT (MIN 3 VIEWS)o n 09-13-2021 XR ANKLE LEFT (MIN 3 VIEWS) EXAMINATION: THREE XRAY VIEWS OF THE RIGHT FOOT; THREE XRAY VIEWS OF THE LEFT ANKLE 09/13/2021 9:14 am COMPARISON: None. HISTORY: ORDERING SYSTEM PROVIDED HISTORY: pain TECHNOLOGIST PROVIDED HISTORY: pain FINDINGS: No acute fracture demonstrated. Alignment is anatomic. 2 threaded screws noted within the medial malleolus. Hnqz-rk-tpxtmcej degenerative change primarily midfoot. Small plantar and dorsal calcaneal spurs present. Soft tissues unremarkable. IMPRESSION: No acute findings. Interpreted by: Jeronimo Art DO Signed by: Jeronimo Art DO 09/13/21 Final result Normal [facility] Radiology Study observation (narrative) [employer] Phone: XR ANKLE RIGHT (MIN 3 VIEWS) [...] Small plantar and dorsal calcaneal spurs present. Jrwk-xd-eluzofiu degenerative change primarily midfoot. Overall alignment anatomic. Soft tissues unremarkable. IMPRESSION: No acute findings. Interpreted by: Jeronimo Art DO Signed by: Jeronimo Art DO 09/13/21 Final result Normal [facility] Radiology Study observation (narrative) [employer] Phone: XR FOOT LEFT (MIN 3 [...] Small plantar and dorsal calcaneal spurs present. Eefr-iw-nfiyoozc degenerative change primarily midfoot. Overall alignment anatomic. Soft tissues unremarkable. IMPRESSION: No acute findings. Interpreted by: Jeronimo Art DO Signed by: Jeronimo Art DO 09/13/21 Final result Normal [facility] Radiology Study observation (narrative) [employer] Phone: XR FOOT RIGHT (MIN 3 VIEWS)o n 09-13-2021 XR FOOT RIGHT (MIN 3 VIEWS) EXAMINATION: THREE XRAY VIEWS OF THE RIGHT FOOT; THREE XRAY VIEWS OF THE LEFT ANKLE 09/13/2021 9:14 am COMPARISON: None. HISTORY: ORDERING SYSTEM PROVIDED HISTORY: pain TECHNOLOGIST PROVIDED HISTORY: pain FINDINGS: No acute fracture demonstrated. Alignment is anatomic. 2 threaded screws noted within the medial malleolus. Fifc-pf-uqzwyqpq degenerative change primarily midfoot. Small plantar and dorsal calcaneal spurs present. Soft tissues unremarkable. IMPRESSION: No acute findings. Interpreted by: Jeronimo Art DO Signed by: Jeronimo Art DO 09/13/21 Final result Normal [facility] Radiology Study observation (narrative) [employer] Phone: XR ABDOMEN (KUB) (SINGLE AP [...] Kerri Scott MD 05/08/21 Final result Normal [facility] XR ABDOMEN (KUB) (SINGLE AP VIEW)Ordered By: Quincy Interiano on 05-08-2021 Nonobstructive bowel gas pattern. No radiodensities diagnostic of nephroliths. [employer] Phone: EXAMINATION: ONE SUPINE XRAY VIEW(S) OF THE ABDOMEN 05/08/2021 10:35 am COMPARISON: 01 May 2021 HISTORY: ORDERING SYSTEM PROVIDED HISTORY: Microscopic hematuria FINDINGS: The bowel gas pattern is non obstructive. No organomegaly, free air or abnormal calcifications are noted. Mild levo scoliotic curvature is present. [employer] Phone: Luther, pn Incoming Radiant Results From [employer] - 05/08/2021 2:06 PM EDT EXAMINATION: ONE SUPINE XRAY VIEW(S) OF THE ABDOMEN 05/08/2021 10:35 am COMPARISON: 01 May 2021 HISTORY: ORDERING SYSTEM PROVIDED HISTORY: Microscopic hematuria FINDINGS: The bowel gas pattern is non obstructive. No organomegaly, free air or abnormal calcifications are noted. Mild levo scoliotic curvature is present. IMPRESSION: Nonobstructive bowel gas pattern. No radiodensities diagnostic of nephroliths. [employer] Phone: [employer] Phone: No Panel InformationOrdered By: Fatuma Sanchez on 05-01-2021 1. No acute osseous abnormality of the right ankle. Posttraumatic and postsurgical changes as above. Mild tibiotalar joint osteoarthritis. 2. Acute osseous abnormality of the right foot. Chronic appearing well-defined erosion or subchondral cyst at the base of the 3rd metatarsal without associated joint space loss. This is a nonspecific finding. [employer] Phone: EXAMINATION: THREE XRAY VIEWS OF [...] base of the 3rd metatarsal is nonspecific. [employer] Phone: Luther, pn Incoming Radiant Results From [employer] - 05/01/2021 5:46 PM EDT EXAMINATION: THREE [...] space loss. This is a nonspecific finding. [employer] Phone: [employer] Phone: Unremarkable left wrist/left hand series. There are no plain radiographic findings to suggest an active synovial process of bone as rheumatoid arthritis [employer] Phone: EXAMINATION: 2 XRAY VIEWS OF THE LEFT WRIST; TWO XRAY VIEWS OF THE LEFT HAND 05/01/2021 11:10 am COMPARISON: None. HISTORY: ORDERING SYSTEM PROVIDED HISTORY: Seropositive rheumatoid arthritis (HCC) FINDINGS: The bones and joints are unremarkable without definite fracture, dislocation, significant degenerative/erosive change, radiopaque foreign body, abnormal soft tissue calcification or bony destructive lesion [employer] Phone: [place], Rust Incoming Radiant Results From [facility] - 05/01/2021 11:26 AM EDT EXAMINATION: 2 [...] synovial process of bone as rheumatoid arthritis [employer] Phone: [employer] Phone: XR ABDOMEN (KUB) (SINGLE AP [...] Linda Albarran MD 05/01/21 Final result Normal [facility] XR ABDOMEN (KUB) (SINGLE AP VIEW)Ordered By: Quincy Interiano on 05-01-2021 No significant radiographic abnormality in the abdomen. [employer] Phone: EXAMINATION: ONE SUPINE XRAY VIEW(S) OF THE ABDOMEN 05/01/2021 10:51 am COMPARISON: None. HISTORY: ORDERING SYSTEM PROVIDED HISTORY: Pain FINDINGS: Nonobstructive bowel gas pattern. No abnormal calcifications overlying the gallbladder urinary tract. No mass effect. Osseous structures grossly intact. [employer] Phone: Luther, Rust Incoming Radiant Results From [employer] - 05/01/2021 11:21 AM EDT EXAMINATION: ONE SUPINE XRAY VIEW(S) OF THE ABDOMEN 05/01/2021 10:51 am COMPARISON: None. HISTORY: ORDERING SYSTEM PROVIDED HISTORY: Pain FINDINGS: Nonobstructive bowel gas pattern. No abnormal calcifications overlying the gallbladder urinary tract. No mass effect. Osseous structures grossly intact. IMPRESSION: No significant radiographic abnormality in the abdomen. [employer] Phone: [employer] Phone: XR ANKLE LEFT (MIN 3 [...] Clarissa Gomez MD 05/01/21 Final result Normal [facility] XR ANKLE LEFT (MIN 3 VIEWS)O rdered By: Fatuma Sanchez on 05-01-2021 Moderate calcaneal spurring [employer] Phone: EXAMINATION: THREE XRAY VIEWS OF THE LEFT ANKLE 05/01/2021 11:12 am COMPARISON: None. HISTORY: ORDERING SYSTEM PROVIDED HISTORY: Seropositive rheumatoid arthritis (HCC) FINDINGS: There is moderate spurring of the superior aspect of the os calcis. The bones and joints are otherwise unremarkable without definite effusion, acute fracture, dislocation radiopaque foreign body or bony destructive lesion [employer] Phone: [place], Rust Incoming Radiant Results From [employer] - 05/01/2021 11:21 AM EDT EXAMINATION: THREE [...] bony destructive lesion IMPRESSION: Moderate calcaneal spurring [facility] Work Phone: [facility] [employer] Work Phone: XR ANKLE RIGHT (MIN 3 [...] Michael Caceres MD 05/01/21 Final result Normal [facility] XR FOOT LEFT (2 VIEWS)on XR [...] Clarissa Gomez MD 05/01/21 Final result Normal [facility] XR FOOT LEFT (2 VIEWS)Ordere d By: Fatuma Sanchez on 05-01-2021 Mild degenerative changes There are no plain radiographic findings to suggest an active synovial process of bone as rheumatoid arthritis [employer] Phone: EXAMINATION: TWO XRA Y VIEWS OF [...] radiopaque foreign body or bony destructive lesion [employer] Phone: [place], Rust Incoming Radiant Results From [facility] - 05/01/2021 11:29 AM EDT EXAMINATION: TWO [...] synovial process of bone as rheumatoid arthritis [employer] Phone: [employer] Phone: XR FOOT RIGHT (2 VIEWS)on XR [...] Michael Caceres MD 05/01/21 Final result Normal [facility] XR HAND LEFT (2 VIEWS)on XR [...] Clarissa Gomez MD 05/01/21 Final result Normal [facility] XR HAND RIGHT (2 VIEWS)on XR [...] Clarissa Gomez MD 05/01/21 Final result Normal [facility] XR HAND RIGHT (2 VIEWS)Order ed By: Fatuma Sanchez on 05-01-2021 Unremarkable two-vie w right hand series. There are no definite plain radiographic findings to suggest an active synovial process of bone as rheumatoid arthritis [employer] Phone: EXAMINATION: TWO XRA Y VIEWS OF THE RIGHT HAND 05/01/2021 11:12 am COMPARISON: None. HISTORY: ORDERING SYSTEM PROVIDED HISTORY: Seropositive rheumatoid arthritis (HCC) FINDINGS: The bones and joints are unremarkable without definite fracture, dislocation, significant degenerative/erosive change, radiopaque foreign body, abnormal soft tissue calcification or bony destructive lesion [employer] Phone: [place], Rust Incoming Radiant Results From [facility] - 05/01/2021 11:24 AM EDT EXAMINATION: TWO [...] synovial process of bone as rheumatoid arthritis [employer] Phone: [employer] Phone: XR WRIST LEFT (2 VIEWS)on [...] Clarissa Gomez MD 05/01/21 Final result Normal [facility] XR WRIST RIGHT (2 VIEWS)on 0 [...] Clarissa Gomez MD 05/01/21 Final result Normal [facility] XR WRIST RIGHT (2 VIEWS)Orde red By: Fatuma Sanchez on 05-01-2021 Unremarkable two-vie w right wrist series [employer] Phone: EXAMINATION: 2 XRAY VIEWS OF THE RIGHT WRIST; 05/01/2021 11:11 am COMPARISON: None. HISTORY: ORDERING SYSTEM PROVIDED HISTORY: Seropositive rheumatoid arthritis (HCC) FINDINGS: The bones and joints are unremarkable without definite fracture, dislocation, significant degenerative/erosive change, radiopaque foreign body or bony destructive lesion [employer] Phone: Luther, [employer] Incoming Radiant Results From [facility] - 05/01/2021 11:23 AM EDT EXAMINATION: 2 XRAY VIEWS OF THE RIGHT WRIST; 05/01/2021 11:11 am COMPARISON: None. HISTORY: ORDERING SYSTEM PROVIDED HISTORY: Seropositive rheumatoid arthritis (HCC) FINDINGS: The bones and joints are unremarkable without definite fracture, dislocation, significant degenerative/erosive change, radiopaque foreign body or bony destructive lesion IMPRESSION: Unremarkable two-view right wrist series [employer] Phone: [employer] Phone: XR WRIST RIGHT (MIN 3 [...] Ebenezer Pepe MD 03/01/21 Final result Normal [facility] XR WRIST RIGHT (MIN 3 VIEWS) Ordered By: Apryl Tucker on 03-01-2021 Unremarkable right wrist. [employer] Phone: EXAMINATION: 3 XRAY VIEWS OF [...] degenerative findings. No appreciable soft tissue abnormality. [employer] Phone: Luther, pn Incoming Radiant Results From [facility] - 03/01/2021 7:52 PM EDT EXAMINATION: 3 [...] soft tissue abnormality. IMPRESSION: Unremarkable right wrist. [employer] Phone: [facility] [employer] Work Phone: XR KNEE RIGHT (1-2 VIEWS)on [...] MD 11/07/20 Recipients: Shahrzad Hensley APRN - SMALL ENGINE TRAINER - (authorizing provider) Final result Normal [facility] XR KNEE RIGHT (3 VIEWS)on Joint effusion witho ut acute osseous abnormality. [facility] [place] EXAMINATION: THREE XRAY VIEWS OF THE RIGHT [...] effusion. The periarticular soft tissues are unremarkable. [place], [place] [employer], [employer] Incoming Radiant Results From [facility] - 09/04/2019 6:08 PM EST EXAMINATION: THREE [...] IMPRESSION: Joint effusion without acute osseous abnormality. [facility] [place] X[facility] HAND LEFT (MIN 3 VIEWS)on 05-12-2019 No acute osseous abnormality. [facility] [place] EXAMINATION: THREE XRAY VIEWS OF THE LEFT HAND 05/12/2019 12:22 pm COMPARISON: November 12, 2018 HISTORY: ORDERING SYSTEM PROVIDED HISTORY: pain TECHNOLOGIST PROVIDED HISTORY: pain FINDINGS: There is no evidence of acute fracture. There is normal alignment. No acute joint abnormality. No focal osseous lesion. No focal soft tissue abnormality. [facility] [place] [employer], [employer] Incoming Radiant Results From [employer] - 05/12/2019 12:48 PM EDT EXAMINATION: THREE XRAY VIEWS OF THE LEFT HAND 05/12/2019 12:22 pm COMPARISON: November 12, 2018 HISTORY: ORDERING SYSTEM PROVIDED HISTORY: pain TECHNOLOGIST PROVIDED HISTORY: pain FINDINGS: There is no evidence of acute fracture. There is normal alignment. No acute joint abnormality. No focal osseous lesion. No focal soft tissue abnormality. IMPRESSION: No acute osseous abnormality. [facility] [place] MRI BRAIN WO CONTRASTon 04-03 MRI BRAIN [...] Tiffanie Hughes MD 04/24/19 Final result Normal [facility] MRI CERVICAL SPINE WO CONTRA STon [...] Tiffanie Hughes MD 04/24/19 Final result Normal [facility] Vital Signs Date Time Vital Sign Value Performing Clinician Robson henry 05-15-2024 14:12-0400 Blood Pressure Location [facility] 05-15-2024 14:12-0400 Diastolic blood pressure 76 mm[Hg] David NILL [facility] 05-15-2024 14:12-0400 Heart rate 76 /min David NILL [facility] 05-15-2024 14:12-0400 Respiratory rate 16 /min David NILL [facility] 05-15-2024 14:12-0400 Systolic blood pressure 118 mm[Hg] David NILL [facility] 09-13-2021 08:22-0500 Diastolic blood pressure 86 mm[Hg] Francis Pinto DO Work Phone: [facility] 09-13-2021 08:22-0500 Systolic blood pressure 147 mm[Hg] Francis Pinto DO Work Phone: [facility] 09-13-2021 08:20-0500 Body mass index (BMI) [Ratio] 37.2 kg/m2 Francis Melendrezrov DO Work Phone: [facility] 09-13-2021 08:20-0500 Body temperature 97.39 [degF] Francis Melendrezrov DO Work Phone: [facility] 09-13-2021 08:20-0500 Body weight 95.25 kg Francis Melendrezrov DO Work Phone: [facility] 09-13-2021 08:20-0500 Heart rate 85 /min Francis Melendrezrov DO Work Phone: [facility] 09-13-2021 08:20-0500 Respiratory rate 16 /min Francis Melendrezrov DO Work Phone: [facility] 09-13-2021 08:20-0500 SaO2% (BldA) [Mass fraction] 99 % Francis Melendrezrov [employer] Work Phone: [facility] 03-01-2021 18:28-0400 Diastolic blood pressure 96 mm[Hg] [employer] Work Phone: [facility] Work Phone: 03-01-2021 18:28-0400 Systolic blood pressure 151 mm[Hg] Clari Mikala Work Phone: [facility] Work Phone: 03-01-2021 18:26-0400 Body temperature 98.71 [degF] [employer] Work Phone: [facility] Work Phone: 03-01-2021 18:26-0400 Heart rate 70 /min [employer] Work Phone: [facility] Work Phone: 03-01-2021 18:26-0400 Respiratory rate 18 /min [employer] Work Phone: [facility] Work Phone: 03-01-2021 18:26-0400 SaO2% (BldA) [Mass fraction] 98 % Clari Dumont Work Phone: [facility] [employer] Work Phone: 09-06-2019 20:00-0500 Body Temperature 97.9 [degF] Oscar Claytonimes [employer] [place] 09-06-2019 20:00-0500 BP Diastolic 100 mm[Hg] [facility] [place] 09-06-2019 20:00-0500 BP Systolic 154 mm[Hg] [facility] [place] 09-06-2019 20:00-0500 Pulse (Heart Rate) 89 /min [facility] [place] 09-06-2019 20:00-0500 Pulse Oximetry 97 % [facility] [place] 09-06-2019 20:00-0500 Respiratory Rate 19 /min Oscar Claytonimes [facility] [place] 09-04-2019 17:38-0500 BMI (Body Mass Index) 36.49 kg/m2 David Huitronpatrick [facility], [place] 09-04-2019 17:38-0500 Body Temperature 98.2 [degF] David Perez [facility], [place] 09-04-2019 17:38-0500 Body weight 93.44 kg David Huitronpatrick [facility], [place] 09-04-2019 17:38-0500 BP Diastolic 94 mm[Hg] [facility] [place] 09-04-2019 17:38-0500 BP Systolic 142 mm[Hg] [facility] [place] 09-04-2019 17:38-0500 Pulse (Heart Rate) 87 /min David Carter [facility], [place] 09-04-2019 17:38-0500 Pulse Oximetry 99 % David Perez [facility], [place] 09-04-2019 17:38-0500 Respiratory Rate 14 /min David Carter [facility], [place] 05-12-2019 12:15-0400 Body Temperature 98.01 [degF] Clari Dumont [facility], [place] 05-12-2019 12:14-0400 BP Diastolic 85 mm[Hg] [facility] , [place] 05-12-2019 12:14-0400 BP Systolic 152 mm[Hg] Cl[facility] Dumont [facility] [place] 05-12-2019 12:14-0400 Pulse (Heart Rate) 87 /min Clari Dumont [facility], [place] 05-12-2019 12:14-0400 Pulse Oximetry 96 % Clari Dumont [facility] , [place] 05-12-2019 12:14-0400 Respiratory Rate 16 /min Clari Dumont [facility], [place] Encounters Encounter Date Encounter Type Care Provider Facility Start: 07-18-2024 End: 07-18-2024 Bamboo flowsheet Ruth Ann Gonzalez AIRPLANE RENTAL CLERK Work Phone: [facility] Start: 07-18-2024 End: 07-18-2024 Bamboo flowsheet Ruth Ann Gonzalez AIRPLANE RENTAL CLERK Work Phone: [facility] Start: 07-18-2024 End: 07-18-2024 Office outpatient visit 25 minutes Ruth Ann Gonzalez AIRPLANE RENTAL CLERK Work Phone: [facility] Comment on above: Low back pain, unspe cified back pain laterality, unspecified chronicity, unspecified whether sciatica present (Primary Dx); Bilateral sciatica Start: 07-18-2024 End: 07-18-2024 ambulatory RUTH ANN GONZALEZ Not Available Start: 05-15-2024 End: 05-15-2024 ambulatory ISABELLA KAPLAN Facility:[facility] Start: 05-15-2024 End: 05-15-2024 Patient encounter procedure David DIAMODN [facility] [place] Start: 01-24-2024 End: 01-24-2024 ambulatory WILL SANTANA [...] Start: 08-12-2023 ambulatory Lakshmi Ruiz [facility] Start: 07-06-2022 End: 07-07-2022 ambulatory ISABELLA KAPLAN Facility:[facility] Start: 05-21-2022 End: 05-22-2022 ambulatory ISABELLA KAPLAN Facility:[facility] Start: 03-19-2022 End: 03-27-2022 ambulatory ISABELLA KAPLAN Facility:[facility] Start: 02-22-2022 End: 02-23-[address] APRYL RIOS Facility:[facility] Start: 09-23-2021 End: 09-23-2021 [facility] Start: 09-21-2021 End: 09-21-2021 Emergency department patient visit CLARI WOLFHMANN [facility] Start: 09-13-2021 End: 09-13-2021 Emergency department patient visit FRANCIS Bacilio MELENDREZLilly [facility] Start: 09-13-2021 End: 09-13-2021 Emergency department [facility] Work Phone: [facility] ED Comment on above: Sprain of right foot , initial encounter (Primary Dx); Sprain of left ankle, unspecified ligament, initial encounter Start: 05-08-2021 End: 05-11-2021 ambulatory QUINCY INTERIANO [facility] Start: 05-08-2021 End: 05-10-2021 Subsequent hospital visit by physician Karoline Varela 4 [facility] Comment on above: Microscopic hematuri a; Flank pain; Hydronephrosis with ureteral calculus Start: 05-01-2021 End: 05-04-2021 [facility] Start: 05-01-2021 End: 05-03-2021 Subsequent hospital visit by physician Karoline Meek Dr Room 2 [facility] Comment on above: Seropositive rheumat oid arthritis (HCC) Pain Start: 03-01-2021 End: 03-01-2021 [facility] Start: 03-01-2021 End: 03-01-2021 Emergency department patient visit Clari Wolfhmann Work Phone: [facility] ED Comment on above: Strain of right wris t, initial encounter (Primary Dx) Start: 11-07-2020 End: 11-10-2020 ambulatory SHAHRZAD HENSLEY [facility] Start: 11-07-2020 End: 11-09-2020 Subsequent hospital visit by physician Clari Wolfhmann [facility] Start: 09-06-2019 End: 09-06-2019 Emergency department patient visit Oscar Zuniga Work Phone: [facility] ED Comment on above: Sprain of collateral ligament of right knee, initial encounter (Primary Dx) Start: 09-04-2019 End: 09-04-2019 Emergency department patient visit David Perez [facility] ED Comment on above: Injury of right knee , initial encounter (Primary Dx); Effusion of right knee joint Start: 05-12-2019 End: 05-12-2019 Emergency department patient visit [facility] ED Comment on above: Contusion of left coles nd including fingers, initial encounter (Primary Dx) Start: 04-20-2019 End: 04-20-2019 Emergency department patient visit JEAN HARPER [facility] Start: 07-29-2017 End: 07-30-2017 Ambulatory Nilo Mendez Facility:[facility] Procedures Date Procedure Procedure Detail Performing [...] DTaP/Tdap/Td vaccine (2 - Td or Tdap) [facility] Start: 11-28-2027 DTaP/Tdap/Td vaccine (2 - Td) DTaP/Tdap/Td vaccine (2 - Td) [place] Start: 08-01-2024 End: 08-01-2024 Patient encounter procedure 08/01/2024 8:00 AM EDT Office Visit [facility] [address] [place] [address] Ruth Ann Gonzalez AIRPLANE RENTAL CLERK [address] [place] [address] [facility] Start: 07-18-2024 End: 07-18-2024 Patient encounter procedure 07/18/2024 8:45 AM EDT Office Visit [facility] [address] [place] [address] Ruth Ann Gonzalez, AIRPLANE RENTAL CLERK [address] [place] [address] Low back pain, unspecified back pain laterality, unspecified chronicity, unspecified whether sciatica present (Primary Dx) [facility] Comment on above: Low back pain, unspe cified back pain laterality, unspecified chronicity, unspecified whether sciatica present (Primary Dx) Start: 11-25-2021 End: 11-25-2021 Patient encounter procedure 11/25/2021 Office Visit Rheumatology Fatuma Sanchez MD [address] [place] [address] [facility] Start: 06-24-2021 End: 06-24-2021 Patient encounter procedure 06/24/2021 Office Visit Rheumatology Fatuma Sanchez MD [address] [place] [address] [phone] [facility] Start: 06-03-2021 Influenza vaccination [facility] Start: 2021 Lipid panel Lipid screen [facility] Start: 06-03-2020 Influenza vaccination Flu vaccine (# 1) [place], [place] Start: 06-03-2019 Influenza vaccination Flu vaccine (# 1) [place] Start: 2016 Diabetes screen Diabetes screen [facility] Start: 2000 DTaP/Tdap/Td vaccine (1 - Tdap) DTaP/Tdap/Td vaccine (1 - Tdap) [place] Start: 1996 HIV screen HIV screen [place], [place] Start: 1996 HIV screening HIV screen [facility] Start: 1994 Varicella Vaccine (1 of 2 - 13+ 2-dose series) Varicella Vaccine (1 of 2 - 13+ 2-dose series) [place] Start: 1993 COVID-19 Vaccine (1) COVID-19 Vaccin e (1) [facility] Start: 1992 DTaP/Tdap/Td vaccine (1 - Tdap) DTaP/Tdap/Td vaccine (1 - Tdap) [place] Start: 1982 Varicella Vaccine (1 of 2 - 2-dose childhood series) Varicella Vaccine (1 of 2 - 2-dose childhood series) [facility] Start: 1981 Hepatitis C screening Hepatitis C sc reen [facility] End: 05-12-2019 Splint application Splint application Procedures STAT One Time for 1 Occurrences starting 05/12/2019 until 05/12/2019 [place] Comment on above: One Time for 1 Occur rences starting 05/12/2019 until 05/12/2019 Immunizations Immunization Date Immunization Notes Care Provider Fa cility 10-22-2019 influenza, injectable, quadrivalent, preservative free Ruth Ann Gonzalez AIRPLANE RENTAL CLERK Work Phone: [facility] 11-28-2017 tetanus toxoid, reduced diphtheria toxoid, and acellular pertussis vaccine, adsorbed Ruth Ann Gonzalez AIRPLANE RENTAL CLERK Work Phone: [facility] 07-14-2010 influenza virus vaccine, whole virus Clari Dumont [place], [place] NEGATED: Highlighted row has not occurred!05-11-2021 SARS-CoV-2 (COVID-19) Ad26 vaccine, recombinant David NILL [facility] Payers Date Payer Category Payer [facility] BCBS .[id number]. [id number] 2024 Unknown [id number] 2022 Medicaid [id number] 2020 Unknown [id number] 10.04.840.018204.1.13.239.2. 7.3.862767.315 2019 Unknown [id number] 2019 Unknown [facility] [id number] xxxxxxxxx 2019-Present [address] [address] [place] [address] xxxxxxxxx 1.2.840.933714.1.13.239.2. 7.3.653427.315 1981 Unknown [id number] 2.16.840.1.554978.3.579.2. 175 1981 Unknown [id number] 2.16.840.1.977410.3.579.2. 173 1981 Unknown [id number] 2.16.840.1.094984.3.579.2. 173 1981 Unknown [id number] 2.16.840.1.593031.3.579.2. 173 1981 Unknown [id number] 2.16.840.1.142633.3.579.2. 173 1981 Unknown [id number] 2.16.840.1.564755.3.579.2. 173 1981 Unknown [id number] 2.16.840.1.717420.3.579.2. 173 1981 Unknown [id number] 2.16.840.1.866782.3.579.2. 173 1981 Unknown [id number] 2.16.840.1.859144.3.579.2. 173 1981 Unknown [id number] 2.16.840.1.239116.3.579.2. 173 1981 Unknown [id number] 2.16.840.1.033140.3.579.2. 173 1981 Unknown [id number] 2.16.840.1.425816.3.579.2. 173 1981 Unknown [id number] 2.16.840.1.740247.3.579.2. 173 1981 Unknown [id number] 2.16.840.1.496440.3.579.2. 173 1981 Unknown [id number] 2.16.840.1.872126.3.579.2. 173 1981 Unknown [id number] 2.16.840.1.497265.3.579.2. 173 1981 Unknown [id number] 2.16.840.1.302719.3.579.2. 173 1981 Unknown [id number] 2.16.840.1.445026.3.579.2. 173 1981 Unknown [id number] 2.16840.1.259896.3.579.2. 173 1981 Unknown [id number] 2.16840.1.981653.3.579.2. 173 1981 Unknown [id number] 2.16840.1.221513.3.579.2. 593 1981 Unknown [id number] 2.16840.1.275272.3.579.2. 593 1981 Unknown [id number] 2.16840.1.156390.3.579.2. 593 1981 Unknown [id number] 2.16840.1.973301.3.579.2. 593 1981 Unknown [id number] 2.16840.1.567976.3.579.2. 727 1981 Unknown [id number] 2.16.840.1.465862.3.579.2. 727 1981 Unknown [id number] 2.16.840.1.581896.3.579.2. 1259 1981 Unknown [id number] 2.16.840.1.673292.3.579.2. 1259 1981 Unknown [id number] 2.16.840.1.638812.3.579.2. 1259 1981 Unknown [id number] 2.16.840.1.814695.3.579.2. 9 1981 Unknown [id number] 2.16.840.1.871894.3.579.2. 1258 1981 Unknown [id number] 2.16.840.1.488476.3.579.2. 1258 1981 Unknown [id number] 2.16.840.1.825623.3.579.2. 1258 1981 Unknown [id number] 2.16.840.1.966107.3.579.2. 1258 1981 Unknown [id number] 2.16.840.1.194220.3.579.2. 9 1959 Unknown [id number] 1.2.840.148250.1.13.239.2. 7.3.150865.315 1959 Unknown [id number] Social History Date Type Detail Facility Start: 09-04-2019 End: 02-10-2023 Tobacco smoking status NHIS Never smoker [facility] [employer] Start: 09-04-2019 End: 03-27-2021 Alcohol intake Current non-drinker of alcohol (finding) [place], [place] Start: 10-16-2017 Alcohol Comment [place] Start: 1980 Sex Assigned At Not on file [place], [place] Start: 05-12-2019 End: 01-11-2024 Alcohol intake No [facility] Start: 09-06-2019 End: 02-10-2023 Tobacco use and exposure Never used [place], [place] Exposure to SARS-CoV -2 (event) Not sure [facility] Start: 03-27-2021 Alcohol Comment very rare Emma parikh Work Phone: Tobacco smoking status Never [facility] [place] Start: 01-11-2024 End: 07-18-2024 Alcoholic beverage intake Current drinker of alcohol (finding) [facility] Start: 01-11-2024 End: 07-18-2024 Alcoholic beverage intake [facility] Start: 02-10-2023 Alcohol Comment caffeine intak e: 3-4 cups per day, soda [facility] Start: 10-03-2023 Gender identity Identifies as male gender (finding) [facility] Functional Status Date Assessment Result Facility 05-15-2024 Functional Status N/A [facility] [place] Clinical Notes 09-13-2021 to 07-18-2024 Ruth Ann Gonzalez AIRPLANE RENTAL CLERK - 07/18/2024 8:45 AM EDTInstructionsAttachments Note [...] has a new job working at a [employer], 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 [place]: XR NOMS 11/28/23, [...] activities as tolerated documented in this encounter [facility] 05-15-2024 Note General Surgery [...] qualifying data Procedure/Surgica (more content not included)... [facility] Comment on above: Result Comment: Elec tronically Signed By: DARA FARIAS, David Loera\.br\Date and Time Signed: 05/15/24 14:59 EDT 11-11-2023 Note TC to Home number fo r AIRPLANE RENTAL CLERK referral for: Elevated Rheumatoid Factor Referral in senior media director Spoke with son and provider Rheum clinic call back number. Son states he will give his father the message to return call. [facility] 07-06-2022 Note CONSULTATION CONSULTATION DATE: 07/06/2022 [...] work. 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 He has low back pain 3/10. The [...] in office. CC: Chen Kaplan CNP [facility] 09-13-2021 Hospital Discharge instructions Francis Pinto DO - 09/13/2021 Return to the Emergency Department immediately if you develop worsening pain, numbness, weakness , or you have any other concerns. Please follow up with your orthopaeidc doctor in 2-3 days. Ice, elevate Use crutches The following attachments cannot be sent through Care Everywhere.Ankle Sprain (Libyan)documented in this encounter [employer] Phone: Evaluation + Plan note No data available for this section [facility] Evaluation note Diagnosis Strain of right wrist, initial encounter- Primary documented in this encounter [employer] Phone: evaluation note* Diagnosis Seropositive rheumatoid arthritis (HCC) Rheumatoid arthritis documented in this encounter [employer] Phone: evaluation note* Diagnosis Pain Generalized pain documented in this encounter [employer] Phone: [email or web address] note* Diagnosis Microscopic hematuria Flank pain Abdominal pain, unspecified site Hydronephrosis with ureteral calculus Calculus of ureter documented in this encounter [employer] Phone: evaluation note* Diagnosis Sprain of right foot, initial encounter- Primary Sprain of left ankle, unspecified ligament, initial encounter documented in this encounter [employer] Phone: evaluation note* Diagnosis Low back pain, unspecified back pain laterality, unspecified chronicity, unspecified whether sciatica present- Primary Bilateral sciatica Sciatica documented in this encounter [facility] Dis[facility]* Attachments The following attachments cannot be sent through Care Everywhere. * Strain or Sprain (Libyan) [facility] Phone: Hospital Discharge instructions No data available for this section [facility] Progress note No data available for this section [facility] Summary Purpose Family History No Family History Records FoundNo Family History Records FoundNo Family History Records FoundNo Family History Records FoundNo Family History Records FoundNo Family History Records Found No data available for this section No Family History Records FoundNo Family History Records Found Advance Directives No Advanced Directives Records FoundDocuments on File Type Date Recorded 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 * Finger: Bruises (Libyan) documented in this encounter* Attachments The following attachments cannot be sent through Care Everywhere. * Knee Sprain (Libyan) documented in this encounter Additional Source Comments (unrecognized sect ion and content) No Status Records FoundNo Status Records FoundNo Status Records FoundNo Status Records FoundNo Status Records FoundNo Status Records FoundNo Status Records FoundNo Status Records Found INFORMATION SOURCE (unrecogn ized section and content) DATE CREATED AUTHOR 03/31/2018 [facility] DATE CREATED AUTHOR AUTHOR'S ORGANIZ ATION 04/26/2019 [facility] DATE CREATED AUTHOR AUTHOR'S ORGANIZ ATION 09/23/2021 [facility] DATE CREATED AUTHOR AUTHOR'S ORGANIZ ATION 02/16/2023 [facility] DATE CREATED AUTHOR AUTHOR'S ORGANIZ ATION 08/14/2023 [facility] DATE CREATED AUTHOR AUTHOR'S ORGANIZ ATION 11/13/2023 [facility] DATE CREATED AUTHOR AUTHOR'S ORGANIZ ATION 05/16/2024 [facility] DATE CREATED AUTHOR AUTHOR'S ORGANIZ ATION 07/20/2024 [facility] EPIC Reason for Visit (unrecogniz [...] Care Teams (unrecognized sec tion and content) Ski Maker Relationship Specialty Start Date [place] [address] PCP - General Nurse Practitioner 04/21/19 Ski Maker Relationship Specialty Start Date End Date Ac Schmid MD [address] [place] [id number] PCP - General Family Medicine 02/08/23 [place] [address] [place] [id number] Referring Physician Family Medicine 09/12/23 Ski Maker Relationship Specialty Start Date End Date Ac Schmid MD [address] [place] [id number] PCP - General Family Medicine 02/08/23 Isabella Kaplan MD [address] [place], [place] [id number] Referring Physician Family Medicine 09/12/23 FOR RECORDS [...] BE BASED ON THE PRIMARY CLINICAL RECORDS. [employer] provides no warranty or guarantee of the accuracy or completeness of information in this document.
[2024-10-22 07:52] VITALS: BP 151/103; PULSE 85; TEMP 36.3; O2SAT 97
[2024-10-22 08:39] VITALS: BP 155/106; BP 164/109; PULSE 79; PULSE 81; O2SAT 96; O2SAT 97
--- NOTE | 2024-10-22 08:43 | W.PM.PROCNOT ---
Date of procedure: 10/22/24 Pre-op diagnosis: Pain due to lumbar stenosis with neurogenic claudication Post-op diagnosis: same as pre-op Procedure: Procedure: Bilateral L4-5 transforaminal epidural steroid injection Medications: Bupivacaine 0.25% 2cc, lidocaine 2% 1cc, depomedrol 80mg The patient was seen and examined in the preoperative holding area.? Informed consent was obtained and placed on the chart.? Patient was brought to the medical procedure unit and placed in the prone position where a timeout was completed verifying the correct patient, procedure site, position, and planned special equipment using sterile aseptic technique.? Under direct fluoroscopic visualization a 25-gauge Quincke tipped spinal needle was advanced at level left L4-5 to the designated neural foramen where contrast dye was injected to show adequate spread.? There was no evidence of vascular or adverse uptake.? Epidural spread was appreciated.? The above-mentioned injectate was then placed in a 1.5 mL aliquot preceded by negative aspiration.? The needle was removed. The same procedure, at the same level, was completed on the opposite side. ? Patient was taken to the postprocedural recovery area and monitored for an appropriate length of time before found suitable for discharge in the accompaniment of a responsible adult. Anesthesia: Local Surgeon: Lee Maradiaga Pathology: none sent Condition: stable Disposition: no change
[2024-10-22] MEDS: BUPIVACAINE HCL 0.25% PF 25 MG/10 ML VIAL INJ (08:44)
[2024-10-22] MEDS: IOHEXOL 240 MG/ML - 10 ML VIAL 12 MG INJ (08:44)
[2024-10-22] MEDS: LIDOCAINE HCL 2% 400 MG/20 ML MDV 3 ML INJ (08:44)
[2024-10-22] MEDS: 0.9 % SODIUM CHLORIDE 10 ML SYRINGE - SALINE FLUSH INJ (08:44)
[2024-10-22] MEDS: METHYLPREDNISOLONE ACETATE 80 MG/ML VIAL INJ (08:45)
== END 2024-10-22 08:48 | disposition home or self-care (01) ==
LOC: SURGOUT 07:36
PROVIDERS: PCP Nurse Practitioner Family; Visit Provider Anesthesiology
DX: M48.062 Spinal stenosis, lumbar region with neurogenic claudication (principal)
CPT/HCPCS: 64483; J0665; J1010; Q9966

== ENCOUNTER 2024-10-29 14:46 | Emergency (ER) | payer MEDICAID, SELFPAY ==
[2024-10-29 14:56] VITALS: BP 150/96; PULSE 89; TEMP 36.4; O2SAT 98; BMI 37.2
--- OUTSIDE RECORDS SUMMARY | 2024-10-29 15:08 | XMS_ITS | CCD ---
Author Organization [facility] Informat ion Partnership [facility] Care Team Providers Care Environmental Property Assessor Name Role Phone LEROYJEAN Primary Care Unavailable KENYATTA KEN Attending Unavailable FAN, ARTEMIO Consulting Unavailable Mikala, Clari A Primary Care Provider Mikala, Clair A Primary Care Provider [phone] Mikala, Clari A Primary Care Provider MIKALA, CLARI A Primary Care Unavailable SHAHRZAD HENSLEY Referring Unavailable MIKALA, CLARI A Primary Care Unavailable MIKALA, CLARI A Primary Care Unavailable QUINCY INTERIANO R Referring Unavailable MIKALA, CLARI A Primary Care Unavailable QUINCY INTERIANO R Referring Unavailable INTERIANO, QUINCY R Referring Unavailable MIKALA, CLARI A Primary Care Unavailable SHAHRZAD HENSLEY Referring Unavailable MIKALA, CLARI A Primary Care Unavailable MIKALA, CLARI A Primary Care Unavailable MIKALA, CLARI A Primary Care Unavailable INTERIANOQUINCY R Referring Unavailable MIKALA, CLARI A Primary Care Unavailable INTERIANOQUINCY R Referring Unavailable FATUMA SANCHEZ Referring Unavailable MIKALA, CLARI A Primary Care Unavailable INTERIANO, QUINCY R Referring Unavailable MIKALA, CLARI A Primary Care Unavailable INTERIANO, QUINCY R Referring Unavailable MIKALA, CLARI A Primary Care Unavailable INTERIANO, QUINCY R Referring Unavailable MIKALA, CLARI A Primary Care Unavailable MIKALA, CLARI A Primary Care Unavailable INTERIANO, QUINYC R Referring Unavailable MIKALA, CLARI A Primary Care Unavailable INTERIANO, QUINCY R Referring Unavailable MIKALA, CALRI A Primary Care Unavailable INTERIANO, QUINCY R Referring Unavailable INTERIANO, QUINCY R Referring Unavailable MIKALA, CLARI A Primary Care Unavailable FRANCIS PINTO Attending Unavailable MIKALA, CLARI A Primary Care Unavailable KATE OLIVIER Attending Unavailable MIKALA, CLARI A Primary Care Unavailable EUSEBIO, ISABELLA Primary Care Unavailable CONTRERAS ., DR YULI Schmidt Attending Unavailable CONTRERAS ., DR YULI Schmidt Consulting Unavailable CONTRERAS ., DR YULI Schmidt Admitting Unavailable EUSEBIO, ISABELLA Primary Care Unavailable HOCordell ., DR PEARSON Referring Unavailable HOY ., DR PEARSON Attending Unavailable HOY ., DR PEARSON Consulting Unavailable HOY ., DR PEARSON Admitting Unavailable WEST, DR MICHAEL Carr Consulting Unavailable ZIEBER, DR APRYL Loera Consulting Unavailable ZIEBGILBERT, DR APRYL Loera Consulting Unavailable EUSEBIO, ISABELLA Attending Unavailable EUSEBIO, ISABELLA Admitting Unavailable MIKALA, CLARI Primary Care Unavailable EUSEBIO, ISABELLA Consulting Unavailable EUSEBIO, ISABELLA Admitting Unavailable EUSEBIO, ISABELLA Attending Unavailable EUSEBIO, ISABELLA Primary Care Unavailable Sara PARISH, Lakshmi Attending Unavailable MIKALA, CLARI A Primary Care Physician [phone] ISABELLA KAPLAN Referring Unavailable NILLDavid Attending Unavailable EUSEBIO, ISABELLA S Referring Unavailable NILL, David Loera Attending Unavailable Sharmaine FARIAS, Ac Godwin Primary Care Provider [phone] Eusebio FARIAS, Isabella Unavailable NICOLETTE, RUTH ANN Elkins Attending Unavailable APLING, RUTH ANN B Referring Unavailable APLING, RUTH ANN B Referring Unavailable APLING, RUTH ANN B Attending Unavailable APLING, RUTH ANN B Attending Unavailable WILL SANTANA Attending Unavailable APLING, RUTH ANN Elkins Attending Unavailable APLING, RUTH ANN B Referring Unavailable APLING, RUTH ANN B Attending Unavailable Lee Maradiaga MD Attending Unavailable Allergies Allergy Classification Reported Allergen(s) Allergy Type Date of Onset Reaction(s) Facility Opioid Agonists (13 sources) traMADol Drug Allergy 6 Rash [facility] Penicillins (antibiotic) (13 sources) Penicillins Drug Allergy 1 Rash [facility] (7 sources) Penicillins; Translations: [penicillins] Propensity to adverse reactions to drug 1 Rash, Eruption of skin (disorder) [facility] [place], [place] (9 sources) traMADol; Translations: [tramadol] Drug Allergy 6 Rash, Eruption of skin (disorder) [facility] [place] (2 sources) Penicillin; Translations: [penicillin] Drug Allergy 8 [facility] (2 sources) traMADol; Translations: [Ultram] Drug Allergy [facility] (3 sources) Naproxen Drug Allergy 3 Rash [facility] (3 sources) Penicillins Drug Allergy 3 Hives [facility] Medications Current Medications Medication Drug Class(es) [...] BID, # 20 cap(s), Refills(s) 0, Pharmacy: [facility]22, 160, cm, 05/04/21 15:08:00 [...] 05-15-2024 Ambulatory Visit Summary Ambulatory Visit Summary JUNIOR [...] choosing us for your care. [facility] Ambulatory Visit Summary Ambulatory Visit Summary [...] for choosing us for your care. Normal [facility] Physician Referralon 023 Physician Referral [phone] 02 [id number] TIFF Normal [facility] MRI LSPINE WO CONon 05-21-20 [...] MICHAEL RAE Date: 2022-05-21 18:38 Normal [facility] XR FOREIGN BODY EYEon 2021 XR FOREIGN BODY EYE EXAMINATION: XR FOREIGN BODY EYE HISTORY: Foreign body in eye COMPARISON: No relevant comparison available. FINDINGS: ORBITS: Negative for a metallic foreign body. OTHER: Negative. IMPRESSION: 1. No metallic foreign body within the orbits. Electronically authenticated by: APRYL RIOS Date: 2022-05-21 10:36 Normal [facility] XR LSPINE MIN 4 VIEWSon 02-01 [...] progressed compared to 2017. Electronically authenticated by: APRYL RIOS Date: 2022-02-22 11:06 Normal [facility] CBC with Diffon 09-23-2021 Abs. Basophil 0.02 k/uL Normal 0.0-0.2 [facility] Comment on above: Performed By: #### C ELOY LOPEZ, IPF ####[facility] [place] , [place] [id number] Lab Director: Michael Meyer MD Abs.Imm.Granulocyte 0.02 k/uL Normal 0.00-0.30 [facility] Comment on above: Performed By: #### C ELOY LOPEZ, IPF ####[facility] [place] [address] lab Director: Michael Meyer MD Abs.Neutrophil (Seg) 1.28 k/uL Low 1.50-8.[address] [facility] Comment on above: Performed By: #### C DP, CP, IPF ####[address] , [place] [address])[phone] Director: Michael Meyer MD Basophils/100 WBC (Bld) 1 % Normal 0-2 [facility] Comment on above: Performed By: #### C DP, CP, IPF ####[address] , [place] [address])[phone] Director: Michael Meyer MD Eosinophils (Bld) [#/Vol] 0.00 10*3/uL Normal 0.00-0.44 [facility] Comment on above: Performed By: #### C DP, CP, IPF ####[address] [place], [place] [address])[phone] Director: Michael Meyer MD Eosinophils/100 WBC (Bld) 0 % Low 1-4 [facility] Comment on above: Performed By: #### C DP, CP, IPF ####[address] , [place] [address])[phone] Director: Michael Meyer MD Immature granulocytes/100 WBC (Bld) 1 % High 0 [facility] Comment on above: Performed By: #### C DP, CP, IPF ####[address] , [place] [address])[phone] Director: Michael Meyer MD Lymphocytes (Bld) [#/Vol] 0.73 10*3/uL Low 1.10-3.70 [facility] Comment on above: Performed By: #### C DP, CP, IPF ####[address] , [facility]83[facility])[phone] Director: Michael Meyer MD Lymphocytes/100 WBC (Bld) 33 % Normal 24-43 [facility] Comment on above: Performed By: #### C DP, CP, IPF ####[address] , [place] [phone])[phone] Director: Michael Meyer MD Monocytes (Bld) [#/Vol] 0.15 10*3/uL Normal 0.10-1.20 [facility] Comment on above: Performed By: #### C DP, CP, IPF ####[address] , [place] [phone] Director: Michael Meyer MD Monocytes/100 WBC (Bld) 7 % Normal 3-12 [facility] Comment on above: Performed By: #### C DP, CP, IPF ####[address] , [place] [phone])[phone] Director: Michael Meyer MD Morphology Fernando (Bld) [Interp] Platelet scan shows Normal Platelets Normal [facility] Comment on above: Performed By: #### C DP, CP, IPF ####[address] , [place] [id number])[phone] Director: Michael Meyer MD Neutrophil (Seg) 58 % Normal 36-[address] [facility] Comment on above: Performed By: #### C DP, CP, IPF ####[address] , [place] [phone])[phone] Director: Michael Meyer MD Erythrocyte distribution width (RBC) [Ratio] 11.2 % Low 11.8-14.4 [facility] Comment on above: Performed By: #### C DP, CP, IPF ####[address] , [place] [phone])[phone] Director: Michael Meyer MD Hematocrit (Bld) [Volume fraction] 46.3 % Normal 40.7-50.3 [facility] Comment on above: Performed By: #### C DP, CP, IPF ####[address] [place] [address] lab Director: Michael Meyer MD Hemoglobin (Bld) [Mass/Vol] 15.6 g/dL Normal 13.0-17.0 [facility] Comment on above: Performed By: #### C DP, CP, IPF ####[address] [place] [address] lab Director: Michael Meyer MD MCH (RBC) [Entitic mass] 28.5 pg Normal 25.2-33.5 [facility] Comment on above: Performed By: #### C DP, CP, IPF ####[address] [place] [address] lab Director: Michael Meyer MD MCHC (RBC) [Mass/Vol] 33.7 g/dL Normal 28.4-34.8 [facility] Comment on above: Performed By: #### C JESSICA CP, IPF ####[address] , [place] 8[address]83 lab Director: Michael Meyer MD MCV (RBC) [Entitic vol] 84.6 fL Normal 82.6-102.9 [facility] Comment on above: Performed By: #### C DP CP, IPF ####[address] , [place] 16[address]83 lab Director: Michael Meyer MD NRBC Automated 0.0 per 100 WBC Normal 0.0 [facility] Comment on above: Performed By: #### C DP, CP, IPF ####[address] , [place] 7207[address] lab Director: Michael Meyer MD Platelet Count See Reflexed IPF Result Normal 138-453 [facility] Comment on above: Performed By: #### C DP, CP, IPF ####[address] , [place] 9[address] lab Director: Michael Meyer MD RBC (Bld) [#/Vol] 5.47 10*6/uL Normal 4.21-5.77 [facility] Comment on above: Performed By: #### C DP, CP, IPF ####[address] [place] [address] Lab Director: Michael Meyer MD WBC (Bld) [#/Vol] 2.2 10*3/uL Low 3.5-11.3 [facility] Comment on above: Performed By: #### C DP, CP, IPF ####[address] [place] [address] Lab Director: Michael Meyer MD Auto Diff Performed NOT REPORTED Normal [facility] Comment on above: Performed By: #### C DP, CP, IPF ####[address] , [place] [phone] Director: Michael Meyer MD MPV NOT REPORTED Normal 8.1-13.5 [facility] Comment on above: Performed By: #### C DP, CP, IPF ####[address] , [place] [address])[phone] Director: Michael Meyer MD Platelet Comment NOT REPORTED Normal [facility] Comment on above: Performed By: #### C DP, CP, IPF ####[address] , [place] [phone])[phone] Director: Michael Meyer MD RBC morphology finding Nom (Bld) NOT REPORTED Normal [facility] Comment on above: Performed By: #### C DP, CP, IPF ####[address] [place] [address] Lab Director: Michael Meyer MD WBC Morphology NOT REPORTED Normal [facility] Comment on above: Performed By: #### C DP, CP, IPF ####[address] [place] [address] lab Director: Michael Meyer MD Comp Metabolic Profon 2020 (cont.) Normal [facility] Comment on above: Result Comment: Aver age GFR for 40-49 years old: 99 mL/min/1.73sq m Chronic Kidney Disease: <60 mL/min/1.73sq m Kidney failure: <15 mL/min/1.73sq m eGFR calculated using average adult body mass. Additional eGFR calculator available at: http://www.[employer]/multiple_crcl_2011.htm Performed By: #### C DP CP, IPF ####[address] [place] [address] Lab Director: Michael Meyer MD Albumin [Mass/Vol] 4.1 g/dL Normal 3.5-5.2 [facility] Comment on above: Performed By: #### C JESSICA CP, IPF ####[address] , [place] 574[address]83 Lab Director: Michael Meyer MD Albumin/Glob Ratio 1.1 Normal 1.0-2.5 [facility] Comment on above: Performed By: #### C JESSICA CP, IPF ####[address] , [place] 515[address]83 Lab Director: Michael Meyer MD Alkaline Phos 87 U/L Normal 40-129 [facility] Comment on above: Performed By: #### C DP CP, IPF ####[address] , [place] 456[address]83 Lab Director: Michael Meyer MD ALT [Catalytic activity/Vol] 65 U/L High 5-41 [facility] Comment on above: Performed By: #### C DP, CP, IPF ####[address] , [place] 3838683 Lab Director: Michael Meyer MD Anion gap [Moles/Vol] 13 mmol/L Normal 9-17 [facility] Comment on above: Performed By: #### C DP, CP, IPF ####[address] , [place] 9[address]83 Lab Director: Michael Meyer MD AST [Catalytic activity/Vol] 68 U/L High <40 [facility] Comment on above: Performed By: #### C DP, CP, IPF ####[address] , [place] 7679483 Lab Director: Michael Meyer MD Bilirubin [Mass/Vol] 0.52 mg/dL Normal 0.3-1.[address] [facility] Comment on above: Performed By: #### C DP, CP, IPF ####[address] , [place] [address]83 Lab Director: Michael Meyer MD BUN/CRE Ratio 8 Low 9-20 [facility] Comment on above: Performed By: #### C DP, CP, IPF ####[address] [place] [address] Lab Director: Michael Meyer MD Calcium [Mass/Vol] 8.8 mg/dL Normal 8.6-10.4 [facility] Comment on above: Performed By: #### C DP, CP, IPF ####[address] [place] [address] Lab Director: Michael Meyer MD Chloride [Moles/Vol] 100 mmol/L Normal 98-[address] [facility] Comment on above: Performed By: #### C DP, CP, IPF ####[address] , [place] 555[address]83 Lab Director: Michael Meyer MD CO2 [Moles/Vol] 23 mmol/L Normal 20-31 [facility] Comment on above: Performed By: #### C DP, CP, IPF ####[address] [place] [address] Lab Director: Michael Meyer MD Creatinine [Mass/Vol] 1.55 mg/dL High 0.70-1.20 [facility] Comment on above: Performed By: #### C DP, CP, IPF ####[address] [place] [address] Lab Director: Michael Meyer MD GFR, Amer >60 Normal >[address] [facility] Comment on above: Performed By: #### C DP, CP, IPF ####[address] [place] [address] Lab Director: Michael Meyer MD GFR,non Amer 50 mL/min Low >[address] [facility] Comment on above: Performed By: #### C DP, CP, IPF ####[address] [place] [address] Lab Director: Michael Meyer MD Glucose [Mass/Vol] 94 mg/dL Normal 70-99 [facility] Comment on above: Performed By: #### C DP, CP, IPF ####[address] [place] [address] Lab Director: Michael Meyer MD Potassium [Moles/Vol] 3.9 mmol/L Normal 3.7-5.3 [facility] Comment on above: Performed By: #### C DP, CP, IPF ####[address] [place] [address] Lab Director: Michael Meyer MD Protein [Mass/Vol] 7.9 g/dL Normal 6.4-8.3 [facility] Comment on above: Performed By: #### C DP, CP, IPF ####[address] [place] [address] Lab Director: Michael Meyer MD Sodium [Moles/Vol] 136 mmol/L Normal 135-144 [facility] Comment on above: Performed By: #### C DP, CP, IPF ####[address] [id number] [facility] Director: Michael Meyer MD Staging: Normal [facility] Comment on above: Result Comment: Stag e 1: Some kidney damage normal GFR Stage 2: Mild kidney damage GFR 60-89 Stage 3: Moderate kidney damage GFR 30-59 Stage 4: Severe kidney damage GFR 15-29 Stage 5: Severe kidney damage GFR <15 ESRD - chronic treatment by dialysis or transplant Performed By: #### C DP, CP, IPF ####[address] , [place] 547[address]83 lab Director: Michael Meyer MD Urea nitrogen [Mass/Vol] 13 mg/dL Normal 6-20 [facility] Comment on above: Performed By: #### C JESSICA CP, IPF ####[address] , [facility]83 [facility] Director: Michael Meyer MD Lactic Acidon 09-23-2021 Lactate [Moles/Vol] 0.9 mmol/L Normal 0.5-2.2 [facility] Comment on above: Performed By: #### L ACTIC ####[address] [address]83 lab Director: Michael Meyer MD Lactic Acid,Whole Bl NOT REPORTED Normal 0.7-2.1 [facility] Comment on above: Performed By: #### L ACTIC ####[address] [place] [address] [facility] Director: Michael Meyer MD PLT, Immature Fract.on 09-23 Platelet, Fluoresc. 42 k/uL Low 138-453 [facility] Comment on above: Performed By: #### C DP, CP, IPF #### [address] [place] [id number] Money Manager: Michael Meyer MD PLT, Immature Fract. 1.2 % Normal 1.1-10.[address] [facility] Comment on above: Performed By: #### C DP, CP, IPF #### [address] [place], [place] [id number] Money Manager: Michael Meyer MD XR CHEST (SINGLE VIEW [...] by: Will Calderón 09/22/21 Final result Normal [facility] Resp Viral Panelon Adenovirus Not detected Normal [facility] Comment on above: Performed By: #### R ALUMINUM POOL INSTALLER ####[place] [address] [place] [address] Lab Director: Juan R Tang, [address] [place] [address] Lab Director: Michael Meyer MD Bordet.parapertussis Not detected Normal [facility] Comment on above: Performed By: #### R ALUMINUM POOL INSTALLER ####[facility] [place] [address] Lab Director: Juan R Tang[address] [place], [place] [address]83 Lab Director: Michael Meyer MD Bordetella pertussis Not detected Normal [facility] Comment on above: Performed By: #### R ALUMINUM POOL INSTALLER ####[place] [address] [place] [address] Lab Director: Juan R [address] [place] [address] Lab Director: Michael Meyer MD Chlamyd.pneumoniae Not detected [facility] Comment on above: Performed By: #### R ALUMINUM POOL INSTALLER ####[facility] [address] [place] [address] Lab Director: Juan R [address] [place] [address] Lab Director: Michael Meyer MD Coronavirus 229E Not detected [facility] Comment on above: Performed By: #### R ALUMINUM POOL INSTALLER ####[facility] [address] [place], [place] [phone] Director: Juan R [address] [place] [address] Lab Director: Michael Meyer MD Coronavirus HKU1 Not detected [facility] Comment on above: Performed By: #### R ALUMINUM POOL INSTALLER ####[facility] [address] [place] [address] Lab Director: Juan R [address] [place] [address] Lab Director: Michael Meyer MD Coronavirus NL63 Not detected [facility] Comment on above: Performed By: #### R ALUMINUM POOL INSTALLER ####[facility] [address] [place] [address] Lab Director: Juan R [address] [place] [address] Lab Director: Michael Meyer MD Coronavirus OC43 Not detected [facility] Comment on above: Performed By: #### R ALUMINUM POOL INSTALLER ####[facility] [address] [place] [address] Lab Director: Juan R [address] [place] [address] Lab Director: Michael Meyer MD Human Metapneumo Not detected [facility] Comment on above: Performed By: #### R ALUMINUM POOL INSTALLER ####[facility] [address] [place] [address] Lab Director: Juan R [address] [place] [address] Lab Director: Michael Meyer MD Influenza A Not detected [facility] Comment on above: Performed By: #### R ALUMINUM POOL INSTALLER ####[facility] [address] [place], [place] [phone] Director: [facility] [place] [address] Lab Director: Michael Meyer MD Influenza B Not detected [facility] Comment on above: Performed By: #### R ALUMINUM POOL INSTALLER ####[facility] [address] [place] [address] Lab Director: Juan [facility] [place] [address] Lab Director: Michael Myeer MD Mycoplas.pneumoniae Not detected Normal [facility] Comment on above: Result Comment: Perf ormed by multiplexed nucleic acid assay. Performed By: #### R ALUMINUM POOL INSTALLER ####[facility] [address] [place], [place] [phone] Director: Juan R Tang[address] [place] [address] Lab Director: Michael Meyer MD Parainfluenza 1 Not detected Normal [facility] Comment on above: Performed By: #### R ALUMINUM POOL INSTALLER ####[facility] [address] [place] [address] Lab Director: Juan R [address] [place] [address] Lab Director: Michael Meyer MD Parainfluenza 2 Not detected Normal [facility] Comment on above: Performed By: #### R ALUMINUM POOL INSTALLER ####[facility] [address] [place], [place] [phone] Director: Juan R [address] [place] [address] Lab Director: Michael Meyer MD Parainfluenza 3 Not detected Normal [facility] Comment on above: Performed By: #### R ALUMINUM POOL INSTALLER ####[place] [address] [place], [place] [phone] Director: Juan R [address] [place] [address] Lab Director: Michael Meyer MD Parainfluenza 4 Not detected Normal [facility] Comment on above: Performed By: #### R ALUMINUM POOL INSTALLER ####[facility] [address] [place] [address] Lab Director: Juan R [address] [place] [address] Lab Director: Michael Meyer MD Resp Syncytial Virus Not detected Normal [facility] Comment on above: Performed By: #### R ALUMINUM POOL INSTALLER ####[facility] [address] [place], [place] [phone] Director: Juan R [facility] [place] [address] Lab Director: Michael Meyer MD Rhino/Enterovirus Not detected [facility] Comment on above: Performed By: #### R ALUMINUM POOL INSTALLER ####[facility] [address] [place], [place] [phone] Director: Juan R [address] [place] [address] Lab Director: Michael Meyer MD SARS-CoV-2 (COVID-19) RNA LYNDON+probe Ql (Unsp spec) Detected Abnormal [facility] Comment on above: Result Comment: Resu lts reported to the appropriate Health Department Performed By: #### R ALUMINUM POOL INSTALLER ####[facility] [address] [place], [place] [phone] Director: Juan R Tang[address] [place] [address] Lab Director: Michael Meyer MD Resp Viral Panelon 1 Source: .NASOPHARYNGEAL SWAB Normal [facility] Comment on above: Performed By: #### R ALUMINUM POOL INSTALLER ####[address] [phone])[phone] Director: Juan R Tang[address] [place] [address] Lab Director: Michael Meyer MD Influenza A H1 NOT REPORTED Normal [facility] Comment on above: Performed By: #### R ALUMINUM POOL INSTALLER ####[address] [phone])[phone] Director: Juan R [address] [place] [address] Lab Director: Michael Meyer MD Influenza A H1-2009 NOT REPORTED Normal [facility] Comment on above: Performed By: #### R ALUMINUM POOL INSTALLER ####[address] [id number])[phone] Director: Juan R Tang[address] [place] [address] Lab Director: Michael Meyer MD Influenza A H3 NOT REPORTED Normal [facility] Comment on above: Performed By: #### R ALUMINUM POOL INSTALLER ####[facility] [address] [place] [address] lab Director: Juan R Tang, [facility] [place] [address] lab Director: Michael Meyer MD No Panel Informationon 09-13 No acute findings. [facility] EXAMINATION: THREE XRAY VIEWS OF THE RIGHT ANKLE; THREE XRAY VIEWS OF THE LEFT FOOT 09/13/2021 9:16 am COMPARISON: None. HISTORY: ORDERING SYSTEM PROVIDED HISTORY: Pain TECHNOLOGIST PROVIDED HISTORY: Pain FINDINGS: No acute fracture demonstrated. 2 threaded screws noted medial malleolus from repair prior injury. Alignment anatomic. Small plantar and dorsal calcaneal spurs present. Vxgj-yn-rasversd degenerative change primarily midfoot. Overall alignment anatomic. Soft tissues unremarkable. [facility] Jeronimo Art DO - 09/13/2021 EXAMINATION: THREE XRAY VIEWS OF THE RIGHT ANKLE; THREE XRAY VIEWS OF THE LEFT FOOT 09/13/2021 9:16 am COMPARISON: None. HISTORY: ORDERING SYSTEM PROVIDED HISTORY: Pain TECHNOLOGIST PROVIDED HISTORY: Pain FINDINGS: No acute fracture demonstrated. 2 threaded screws noted medial malleolus from repair prior injury. Alignment anatomic. Small plantar and dorsal calcaneal spurs present. Sqkq-ev-jpvbewpo degenerative change primarily midfoot. Overall alignment anatomic. Soft tissues unremarkable. IMPRESSION: No acute findings. [facility] Work Phone: [facility] Work Phone: No acute findings. [facility] EXAMINATION: THREE XRAY VIEWS OF THE RIGHT FOOT; THREE XRAY VIEWS OF THE LEFT ANKLE 09/13/2021 9:14 am COMPARISON: None. HISTORY: ORDERING SYSTEM PROVIDED HISTORY: pain TECHNOLOGIST PROVIDED HISTORY: pain FINDINGS: No acute fracture demonstrated. Alignment is anatomic. 2 threaded screws noted within the medial malleolus. Iqtx-ky-kvbqfhpb degenerative change primarily midfoot. Small plantar and dorsal calcaneal spurs present. Soft tissues unremarkable. [facility] Jeronimo Art DO - 09/13/2021 EXAMINATION: THREE XRAY VIEWS OF THE RIGHT FOOT; THREE XRAY VIEWS OF THE LEFT ANKLE 09/13/2021 9:14 am COMPARISON: None. HISTORY: ORDERING SYSTEM PROVIDED HISTORY: pain TECHNOLOGIST PROVIDED HISTORY: pain FINDINGS: No acute fracture demonstrated. Alignment is anatomic. 2 threaded screws noted within the medial malleolus. Tpas-zp-yujrnhqn degenerative change primarily midfoot. Small plantar and dorsal calcaneal spurs present. Soft tissues unremarkable. IMPRESSION: No acute findings. [employer] Phone: No Panel InformationOrdered By: Jeronimo Art on 09-13-2021 [employer] Phone: XR ANKLE LEFT (MIN 3 VIEWS)o n 09-13-2021 XR ANKLE LEFT (MIN 3 VIEWS) EXAMINATION: THREE XRAY VIEWS OF THE RIGHT FOOT; THREE XRAY VIEWS OF THE LEFT ANKLE 09/13/2021 9:14 am COMPARISON: None. HISTORY: ORDERING SYSTEM PROVIDED HISTORY: pain TECHNOLOGIST PROVIDED HISTORY: pain FINDINGS: No acute fracture demonstrated. Alignment is anatomic. 2 threaded screws noted within the medial malleolus. Xnng-ux-kkikffpt degenerative change primarily midfoot. Small plantar and dorsal calcaneal spurs present. Soft tissues unremarkable. IMPRESSION: No acute findings. Interpreted by: Jeronimo Art DO Signed by: Jeronimo Art DO 09/13/21 Final result Normal [facility] Radiology Study observation (narrative) [employer] Phone: XR ANKLE RIGHT (MIN 3 VIEWS) [...] Small plantar and dorsal calcaneal spurs present. Uclg-cp-udiibuqd degenerative change primarily midfoot. Overall alignment anatomic. Soft tissues unremarkable. IMPRESSION: No acute findings. Interpreted by: Jeronimo Art DO Signed by: Jeronimo Art DO 09/13/21 Final result Normal [facility] Radiology Study observation (narrative) [employer] Phone: XR FOOT LEFT (MIN 3 VIEWS)on [...] Small plantar and dorsal calcaneal spurs present. Waml-io-iqyvuggq degenerative change primarily midfoot. Overall alignment anatomic. Soft tissues unremarkable. IMPRESSION: No acute findings. Interpreted by: Jeronimo Art DO Signed by: Jeronimo Art DO 09/13/21 Final result Normal [facility] Radiology Study observation (narrative) [facility] Phone: XR FOOT RIGHT (MIN 3 VIEWS)o n 09-13-2021 XR FOOT RIGHT (MIN 3 VIEWS) EXAMINATION: THREE XRAY VIEWS OF THE RIGHT FOOT; THREE XRAY VIEWS OF THE LEFT ANKLE 09/13/2021 9:14 am COMPARISON: None. HISTORY: ORDERING SYSTEM PROVIDED HISTORY: pain TECHNOLOGIST PROVIDED HISTORY: pain FINDINGS: No acute fracture demonstrated. Alignment is anatomic. 2 threaded screws noted within the medial malleolus. Fcjv-wo-qbjodlce degenerative change primarily midfoot. Small plantar and dorsal calcaneal spurs present. Soft tissues unremarkable. IMPRESSION: No acute findings. Interpreted by: Jeronimo Art DO Signed by: Jeronimo Art DO 09/13/21 Final result Normal [facility] Radiology Study observation (narrative) [facility]R ABDOMEN (KUB) (SINGLE AP VIEW)on [...] Kerri Scott MD 05/08/21 Final result Normal [facility] XR ABDOMEN (KUB) (SINGLE AP VIEW)Ordered By: Quincy Interiano on 05-08-2021 Nonobstructive bowel gas pattern. No radiodensities diagnostic of nephroliths. [employer] Phone: EXAMINATION: ONE SUPINE XRAY VIEW(S) OF THE ABDOMEN 05/08/2021 10:35 am COMPARISON: 01 May 2021 HISTORY: ORDERING SYSTEM PROVIDED HISTORY: Microscopic hematuria FINDINGS: The bowel gas pattern is non obstructive. No organomegaly, free air or abnormal calcifications are noted. Mild levo scoliotic curvature is present. [employer] Phone: Luther, pn Incoming Radiant Results From [employer] - 05/08/2021 2:06 PM EDT EXAMINATION: ONE SUPINE XRAY VIEW(S) OF THE ABDOMEN 05/08/2021 10:35 am COMPARISON: 01 May 2021 HISTORY: ORDERING SYSTEM PROVIDED HISTORY: Microscopic hematuria FINDINGS: The bowel gas pattern is non obstructive. No organomegaly, free air or abnormal calcifications are noted. Mild levo scoliotic curvature is present. IMPRESSION: Nonobstructive bowel gas pattern. No radiodensities diagnostic of nephroliths. [employer] Phone: [facility] Phone: No Panel InformationOrdered By: Fatuma Sanchez on 05-01-2021 1. No acute osseous abnormality of the right ankle. Posttraumatic and postsurgical changes as above. Mild tibiotalar joint osteoarthritis. 2. Acute osseous abnormality of the right foot. Chronic appearing well-defined erosion or subchondral cyst at the base of the 3rd metatarsal without associated joint space loss. This is a nonspecific finding. [employer] Phone: EXAMINATION: THREE XRAY VIEWS OF THE [...] base of the 3rd metatarsal is nonspecific. [employer] Phone: Luther, pn Incoming Radiant Results From [employer] - 05/01/2021 5:46 PM EDT EXAMINATION: THREE [...] space loss. This is a nonspecific finding. [employer] Phone: [employer] Phone: Unremarkable left wrist/left hand series. There are no plain radiographic findings to suggest an active synovial process of bone as rheumatoid arthritis [employer] Phone: EXAMINATION: 2 XRAY VIEWS OF THE LEFT WRIST; TWO XRAY VIEWS OF THE LEFT HAND 05/01/2021 11:10 am COMPARISON: None. HISTORY: ORDERING SYSTEM PROVIDED HISTORY: Seropositive rheumatoid arthritis (HCC) FINDINGS: The bones and joints are unremarkable without definite fracture, dislocation, significant degenerative/erosive change, radiopaque foreign body, abnormal soft tissue calcification or bony destructive lesion [facility] Phone: Luther, pn Incoming Radiant Results From [employer] - 05/01/2021 11:26 AM EDT EXAMINATION: 2 [...] synovial process of bone as rheumatoid arthritis [employer] Phone: [employer] Phone: XR ABDOMEN (KUB) (SINGLE AP VIEW)on [...] Linda Albarran MD 05/01/21 Final result Normal [facility] XR ABDOMEN (KUB) (SINGLE AP VIEW)Ordered By: Quincy Interiano on 05-01-2021 No significant radiographic abnormality in the abdomen. [employer] Phone: EXAMINATION: ONE SUPINE XRAY VIEW(S) OF THE ABDOMEN 05/01/2021 10:51 am COMPARISON: None. HISTORY: ORDERING SYSTEM PROVIDED HISTORY: Pain FINDINGS: Nonobstructive bowel gas pattern. No abnormal calcifications overlying the gallbladder urinary tract. No mass effect. Osseous structures grossly intact. [employer] Phone: Luther, pn Incoming Radiant Results From [employer] - 05/01/2021 11:21 AM EDT EXAMINATION: ONE SUPINE XRAY VIEW(S) OF THE ABDOMEN 05/01/2021 10:51 am COMPARISON: None. HISTORY: ORDERING SYSTEM PROVIDED HISTORY: Pain FINDINGS: Nonobstructive bowel gas pattern. No abnormal calcifications overlying the gallbladder urinary tract. No mass effect. Osseous structures grossly intact. IMPRESSION: No significant radiographic abnormality in the abdomen. [employer] Phone: [employer] Phone: XR ANKLE LEFT (MIN 3 VIEWS)o [...] Clarissa Gomez MD 05/01/21 Final result Normal [facility] XR ANKLE LEFT (MIN 3 VIEWS)O rdered By: Fatuma Sanchez on 05-01-2021 Moderate calcaneal spurring [employer] Phone: EXAMINATION: THREE XRAY VIEWS OF THE LEFT ANKLE 05/01/2021 11:12 am COMPARISON: None. HISTORY: ORDERING SYSTEM PROVIDED HISTORY: Seropositive rheumatoid arthritis (HCC) FINDINGS: There is moderate spurring of the superior aspect of the os calcis. The bones and joints are otherwise unremarkable without definite effusion, acute fracture, dislocation radiopaque foreign body or bony destructive lesion [employer] Phone: Luther, pn Incoming Radiant Results From [employer] - 05/01/2021 11:21 AM EDT EXAMINATION: THREE [...] bony destructive lesion IMPRESSION: Moderate calcaneal spurring [facility] Work Phone: XR ANKLE RIGHT (MIN 3 [...] Michael Caceres MD 05/01/21 Final result Normal [facility] XR FOOT LEFT (2 VIEWS)on XR [...] Clarissa Gomez MD 05/01/21 Final result Normal [facility] XR FOOT LEFT (2 VIEWS)Ordere d By: Fatuma Sanchez on 05-01-2021 Mild degenerative changes There are no plain radiographic findings to suggest an active synovial process of bone as rheumatoid arthritis [facility]: EXAMINATION: TWO XRA Y VIEWS OF [...] radiopaque foreign body or bony destructive lesion [employer] Phone: Luther, pn Incoming Radiant Results From [employer] - 05/01/2021 11:29 AM EDT EXAMINATION: TWO [...] synovial process of bone as rheumatoid arthritis [facility] Work Phone: [facility] Work Phone: XR FOOT RIGHT (2 VIEWS)on XR [...] Michael Caceres MD 05/01/21 Final result Normal [facility] XR HAND LEFT (2 VIEWS)on XR [...] Clarissa Gomez MD 05/01/21 Final result Normal [facility] XR HAND RIGHT (2 VIEWS)on XR [...] Clarissa Gomez MD 05/01/21 Final result Normal [facility] XR HAND RIGHT (2 VIEWS)Order ed By: Fatuma Sanchez on 05-01-2021 Unremarkable two-vie w right hand series. There are no definite plain radiographic findings to suggest an active synovial process of bone as rheumatoid arthritis [employer] Phone: EXAMINATION: TWO XRA Y VIEWS OF THE RIGHT HAND 05/01/2021 11:12 am COMPARISON: None. HISTORY: ORDERING SYSTEM PROVIDED HISTORY: Seropositive rheumatoid arthritis (HCC) FINDINGS: The bones and joints are unremarkable without definite fracture, dislocation, significant degenerative/erosive change, radiopaque foreign body, abnormal soft tissue calcification or bony destructive lesion [employer] Phone: Luther, [facility] Incoming Radiant Results From [employer] - 05/01/2021 11:24 AM EDT EXAMINATION: TWO [...] synovial process of bone as rheumatoid arthritis [employer] Phone: [employer] Phone: XR WRIST LEFT (2 VIEWS)on XR [...] Clarissa Gomez MD 05/01/21 Final result Normal [facility] XR WRIST RIGHT (2 VIEWS)on 0 [...] Clarissa Gomez MD 05/01/21 Final result Normal [facility] XR WRIST RIGHT (2 VIEWS)Orde red By: Fatuma Sanchez on 05-01-2021 Unremarkable two-vie w right wrist series [employer] Phone: EXAMINATION: 2 XRAY VIEWS OF THE RIGHT WRIST; 05/01/2021 11:11 am COMPARISON: None. HISTORY: ORDERING SYSTEM PROVIDED HISTORY: Seropositive rheumatoid arthritis (HCC) FINDINGS: The bones and joints are unremarkable without definite fracture, dislocation, significant degenerative/erosive change, radiopaque foreign body or bony destructive lesion [employer] Phone: Luther, [employer] Incoming Radiant Results From [employer] - 05/01/2021 11:23 AM EDT EXAMINATION: 2 XRAY VIEWS OF THE RIGHT WRIST; 05/01/2021 11:11 am COMPARISON: None. HISTORY: ORDERING SYSTEM PROVIDED HISTORY: Seropositive rheumatoid arthritis (HCC) FINDINGS: The bones and joints are unremarkable without definite fracture, dislocation, significant degenerative/erosive change, radiopaque foreign body or bony destructive lesion IMPRESSION: Unremarkable two-view right wrist series [employer] Phone: [employer] Phone: XR WRIST RIGHT (MIN 3 VIEWS) [...] Ebenezer Pepe MD 03/01/21 Final result Normal [facility] XR WRIST RIGHT (MIN 3 VIEWS) Ordered By: Apryl Tucker on 03-01-2021 Unremarkable right wrist. [employer] Phone: EXAMINATION: 3 XRAY VIEWS OF THE [...] degenerative findings. No appreciable soft tissue abnormality. [employer] Phone: Luther, [employer] Incoming Radiant Results From [employer] - 03/01/2021 7:52 PM EDT EXAMINATION: 3 [...] soft tissue abnormality. IMPRESSION: Unremarkable right wrist. [facility] Work Phone: [facility] Work Phone: XR KNEE RIGHT (1-2 VIEWS)on [...] MD 11/07/20 Recipients: Shahrzad Hensley APRN - SCOUT EXECUTIVE - (authorizing provider) Final result Normal [facility] XR KNEE RIGHT (3 VIEWS)on Joint effusion witho ut acute osseous abnormality. [place] EXAMINATION: THREE XRAY VIEWS OF THE RIGHT [...] effusion. The periarticular soft tissues are unremarkable. [place], [place] Luther, [employer] Incoming Radiant Results From [employer] - 09/04/2019 6:08 PM EST EXAMINATION: THREE [...] effusion without acute osseous abnormality. [facility] XR HAND LEFT (MIN 3 VIEWS)on 05-12-2019 No acute osseous abnormality. [facility] EXAMINATION: THREE XRAY VIEWS OF THE LEFT HAND 05/12/2019 12:22 pm COMPARISON: November 12, 2018 HISTORY: ORDERING SYSTEM PROVIDED HISTORY: pain TECHNOLOGIST PROVIDED HISTORY: pain FINDINGS: There is no evidence of acute fracture. There is normal alignment. No acute joint abnormality. No focal osseous lesion. No focal soft tissue abnormality. [facility] MEHREEN COBB Luther, [employer] Incoming Radiant Results From [employer] - 05/12/2019 12:48 PM EDT EXAMINATION: THREE XRAY VIEWS OF THE LEFT HAND 05/12/2019 12:22 pm COMPARISON: November 12, 2018 HISTORY: ORDERING SYSTEM PROVIDED HISTORY: pain TECHNOLOGIST PROVIDED HISTORY: pain FINDINGS: There is no evidence of acute fracture. There is normal alignment. No acute joint abnormality. No focal osseous lesion. No focal soft tissue abnormality. IMPRESSION: No acute osseous abnormality. [facility] MEHREEN COBB MRI BRAIN WO CONTRASTon [...] Hughes MD 04/24/19 Final result Normal [facility] MRI CERVICAL SPINE WO CONTRA [...] Hughes MD 04/24/19 Final result Normal [facility] Vital Signs Date Time Vital Sign Value Performing Clinician Robson henry 05-15-2024 14:12-0400 Blood Pressure Location David NILL [facility] 05-15-2024 14:12-0400 Diastolic blood pressure 76 mm[Hg] David NILL [facility] 05-15-2024 14:12-0400 Heart rate 76 /min David NILL [facility] 05-15-2024 14:12-0400 Respiratory rate 16 /min David NILL [facility] 05-15-2024 14:12-0400 Systolic blood pressure 118 mm[Hg] David NILL [facility] 09-13-2021 08:22-0500 Diastolic blood pressure 86 mm[Hg] Francis Millie DO Work Phone: [employer] 09-13-2021 08:22-0500 Systolic blood pressure 147 mm[Hg] Francis Beachrov DO Work Phone: [employer] 09-13-2021 08:20-0500 Body mass index (BMI) [Ratio] 37.2 kg/m2 Francis Beachrov DO Work Phone: [employer] 09-13-2021 08:20-0500 Body temperature 97.39 [degF] Francis Beachrov DO Work Phone: [employer] 09-13-2021 08:20-0500 Body weight 95.25 kg Francis Beachrov DO Work Phone: [employer] 09-13-2021 08:20-0500 Heart rate 85 /min Francis Beachrov DO Work Phone: [employer] 09-13-2021 08:20-0500 Respiratory rate 16 /min Francis Beachrojeremy DO Work Phone: [employer] 09-13-2021 08:20-0500 SaO2% (BldA) [Mass fraction] 99 % Francis Beachrov DO Work Phone: [employer] 03-01-2021 18:28-0400 Diastolic blood pressure 96 mm[Hg] [employer] Work Phone: [employer] Work Phone: 03-01-2021 18:28-0400 Systolic blood pressure 151 mm[Hg] [employer] Work Phone: [employer] Work Phone: 03-01-2021 18:26-0400 Body temperature 98.71 [degF] [employer] Work Phone: [employer] Work Phone: 03-01-2021 18:26-0400 Heart rate 70 /min [employer] Work Phone: [employer] Work Phone: 03-01-2021 18:26-0400 Respiratory rate 18 /min Clari [employer] Work Phone: [employer] Work Phone: 03-01-2021 18:26-0400 SaO2% (BldA) [Mass fraction] 98 % Clari Mikala Work Phone: [employer] Work Phone: 09-06-2019 20:00-0500 Body Temperature 97.9 [degF] Oscar VetDC [facility], [place] 09-06-2019 20:00-0500 BP Diastolic 100 mm[Hg] Oscar Zuniga [employer] [facility] , [place] 09-06-2019 20:00-0500 BP Systolic 154 mm[Hg] Oscar Claytonimes [employer] [facility] [place] 09-06-2019 20:00-0500 Pulse (Heart Rate) 89 /min [facility] [place] 09-06-2019 20:00-0500 Pulse Oximetry 97 % Oscar Zuniga [employer] [facility] , [place] 09-06-2019 20:00-0500 Respiratory Rate 19 /min Oscar VetDC [facility] 09-04-2019 17:38-0500 BMI (Body Mass Index) 36.49 kg/m2 David Huitronpatrick [facility], [place] 09-04-2019 17:38-0500 Body Temperature 98.2 [degF] [facility] 09-04-2019 17:38-0500 Body weight 93.44 kg David Huitronpatrick [facility], [place] 09-04-2019 17:38-0500 BP Diastolic 94 mm[Hg] David Huitronpatrick [facility], [place] 09-04-2019 17:38-0500 BP Systolic 142 mm[Hg] David Huitronpatrick [facility], [place] 09-04-2019 17:38-0500 Pulse (Heart Rate) 87 /min David Carter [facility], [place] 09-04-2019 17:38-0500 Pulse Oximetry 99 % [facility] [place] 09-04-2019 17:38-0500 Respiratory Rate 14 /min David Perez [facility], [place] 05-12-2019 12:15-0400 Body Temperature 98.01 [degF] [place] 05-12-2019 12:14-0400 BP Diastolic 85 mm[Hg] [place], [place] 05-12-2019 12:14-0400 BP Systolic 152 mm[Hg] [place], [place] 05-12-2019 12:14-0400 Pulse (Heart Rate) 87 /min [place], [place] 05-12-2019 12:14-0400 Pulse Oximetry 96 % [place], [place] 05-12-2019 12:14-0400 Respiratory Rate 16 /min [place], [place] Encounters Encounter Date Encounter Type Care Provider Facility Start: 10-15-2024 End: 10-15-2024 ambulatory Lee Maradiaga MD Facility: [place] Start: 07-18-2024 End: 07-18-2024 Bamboo flowsheet Ruth Ann Gonzalez END MAKER Work Phone: [facility] Start: 07-18-2024 End: 07-18-2024 Bamboo flowsheet Ruth Ann Gonzalez END MAKER Work Phone: [facility] Start: 07-18-2024 End: 07-18-2024 Office outpatient visit 25 minutes Ruth Ann Gonzalez END MAKER Work Phone: [facility] Comment on above: Low back pain, unspe cified back pain laterality, unspecified chronicity, unspecified whether sciatica present (Primary Dx); Bilateral sciatica Start: 07-18-2024 End: 07-18-2024 ambulatory RUTH ANN GONZALEZ Not Available Start: 05-15-2024 End: 05-15-2024 ambulatory ISABELLA KAPLAN Facility:[facility] Start: 05-15-2024 End: 05-15-2024 Patient encounter procedure David DIAMOND [facility] [place] Start: 01-24-2024 End: 01-24-2024 ambulatory WILL SANTANA Not Available Start: 01-11-2024 End: 01-11-2024 ambulatory RUTH ANN Elkins APLING Not Available Start: 12-12-2023 End: 12-12-2023 ambulatory RUTH ANN Elkins APLING Not Available Start: 11-28-2023 End: 11-28-2023 ambulatory RUTH ANN Elkins APLING Not Available Start: 09-27-2023 ambulatory ISABELLA KAPLAN Facilit y: Yu Start: 09-12-2023 End: 09-12-2023 ambulatory RUTH ANN Elkins APLING Not Available Start: 08-22-2023 ambulatory [facility] Start: 08-12-2023 ambulatory Lakshmi Ruiz [facility] Start: 07-06-2022 End: 07-07-2022 ambulatory ISABELLA KAPLAN Facility:[facility] Start: 05-21-2022 End: 05-22-2022 ambulatory ISABELLA KAPLAN Facility:[facility] Start: 03-19-2022 End: 03-27-2022 ambulatory ISABELLA KAPLAN Facility:[facility] Start: 02-22-2022 End: 02-23-[address] APRYL RIOS Facility:[facility] Start: 09-23-2021 End: 09-23-2021 Emergency department patient visit KATE OLIVIER [facility] Start: 09-21-2021 End: 09-21-2021 Emergency department patient visit CLARI DUMONT [facility] Start: 09-13-2021 End: 09-13-2021 Emergency department patient visit FRANCIS PINTO [facility] Start: 09-13-2021 End: 09-13-2021 Emergency department patient visit Francis Pinto DO Work Phone: [facility] ED Comment on above: Sprain of right foot , initial encounter (Primary Dx); Sprain of left ankle, unspecified ligament, initial encounter Start: 05-08-2021 End: 05-11-2021 ambulatory QUINCY INTERIANO [facility] Start: 05-08-2021 End: 05-10-2021 Subsequent hospital visit by physician Karoline Meek Dr Room 4 [facility] Comment on above: Microscopic hematuri a; Flank pain; Hydronephrosis with ureteral calculus Start: 05-01-2021 End: 05-04-2021 ambulatory QUINCY INTERIANO [facility] Start: 05-01-2021 End: 05-03-2021 Subsequent hospital visit by physician Karoline Meek Dr Room 2 [facility] Comment on above: Seropositive rheumat oid arthritis (HCC) Pain Start: 03-01-2021 End: 03-01-2021 Emergency department patient visit CLARI A [facility] Start: 03-01-2021 End: 03-01-2021 Emergency department patient visit Clari Dumont Work Phone: [facility] ED Comment on above: Strain of right wris t, initial encounter (Primary Dx) Start: 11-07-2020 End: 11-10-2020 ambulatory SHA[facility]ZAD HENSLEY [facility] Start: 11-07-2020 End: 11-09-2020 [facility] Start: 09-06-2019 End: 09-06-2019 Emergency department patient visit Oscar Zuniga Work Phone: [facility] ED Comment on above: Sprain of collateral ligament of right knee, initial encounter (Primary Dx) Start: 09-04-2019 End: 09-04-2019 Emergency department patient visit David Perez [facility] ED Comment on above: Injury of right knee , initial encounter (Primary Dx); Effusion of right knee joint Start: 05-12-2019 End: 05-12-2019 Emergency department patient visit Clari [facility] ED Comment on above: Contusion of left coles nd including fingers, initial encounter (Primary Dx) Start: 04-20-2019 End: 04-20-2019 [facility] Procedures Date Procedure Procedure Detail Performing [...] 05-12-2019 Radex hand minimum 3 views Itzel Mcgeecheson Work Phone: Start: 04-20-2019 Mri brain brain stem w/o contrast material JEAN HARPER Start: 04-20-2019 Mri spinal canal cer vical w/o contrast matrl JEAN HARPER Start: 04-20-2019 IP CONSULT TO NEUROLOGY JEAN DIAMOND Fracture of ankle (disorder) David DARA Plan of Treatment Date Care Activity Detail Author Start: 11-28-2027 DTaP/Tdap/Td vaccine (2 - Td or Tdap) DTaP/Tdap/Td vaccine (2 - Td or Tdap) [facility] Start: 11-28-2027 DTaP/Tdap/Td vaccine (2 - Td) DTaP/Tdap/Td vaccine (2 - Td) [place] Start: 08-01-2024 End: 08-01-2024 Patient encounter procedure 08/01/2024 8:00 AM EDT Office Visit [facility] [address] [facility] [address] [place] [id number] Ruth Ann Gonzalez NP [address] [place] [address] [facility] Start: 07-18-2024 End: 07-18-2024 Patient encounter procedure 07/18/2024 8:45 AM EDT Office Visit [facility] [address] [place] [address] Ruth Ann Gonzalez, END MAKER [address] [facility] [address] [place] [address] Low back pain, unspecified back pain laterality, unspecified chronicity, unspecified whether sciatica present (Primary Dx) [facility] Comment on above: Low back pain, unspe cified back pain laterality, unspecified chronicity, unspecified whether sciatica present (Primary Dx) Start: 11-25-2021 End: 11-25-2021 Patient encounter procedure 11/25/2021 Office Visit Rheumatology Fatuma Sanchez MD [address] [place], [place] [id number] [facility] Physician Services Start: 06-24-2021 End: 06-24-2021 Patient encounter procedure 06/24/2021 Office Visit Rheumatology Fatuma Sanchez MD [address], [place] [id number] [facility] Start: 06-03-2021 Influenza vaccination [facility] Start: 2021 Lipid panel Lipid screen [facility] Start: 06-03-2020 Influenza vaccination Flu vaccine (# 1) [place] Start: 06-03-2019 Influenza vaccination Flu vaccine (# 1) [place] Start: 2016 Diabetes screen Diabetes screen [facility] Start: 2000 DTaP/Tdap/Td vaccine (1 - Tdap) DTaP/Tdap/Td vaccine (1 - Tdap) [place] Start: 1996 HIV screen HIV screen [place], [place] Start: 1996 HIV screening HIV screen [facility] Start: 1994 Varicella Vaccine (1 of 2 - 13+ 2-dose series) Varicella Vaccine (1 of 2 - 13+ 2-dose series) [place] Start: 1993 COVID-19 Vaccine (1) COVID-19 Vaccin e (1) [facility] Start: 1992 DTaP/Tdap/Td vaccine (1 - Tdap) DTaP/Tdap/Td vaccine (1 - Tdap) [place] Start: 1982 Varicella Vaccine (1 of 2 - 2-dose childhood series) Varicella Vaccine (1 of 2 - 2-dose childhood series) [facility] Start: 1981 Hepatitis C screening Hepatitis C sc reen [facility] End: 05-12-2019 Splint application Splint application Procedures STAT One Time for 1 Occurrences starting 05/12/2019 until 05/12/2019 [place] Comment on above: One Time for 1 Occur rences starting 05/12/2019 until 05/12/2019 Immunizations Immunization Date Immunization Notes Care Provider Fa [facility] 10-22-2019 influenza, injectable, quadrivalent, preservative free Ruth Ann Gonzalez END MAKER Work Phone: [facility] 11-28-2017 tetanus toxoid, reduced diphtheria toxoid, and acellular pertussis vaccine, adsorbed Ruth Ann Gonzalez END MAKER Work Phone: [facility] 07-14-2010 influenza virus vaccine, whole virus Clari Mikala [place] NEGATED: Highlighted row has not occurred!05-11-2021 SARS-CoV-2 (COVID-19) Ad26 vaccine, recombinant David CRANEL [facility] Payers Date Payer Category Payer Unknown 2024 [facility] er [id number] 2024 Unknown [id number] 2022 Medicaid [id number] 2020 Unknown [id number] 1.2.840.439705.1.13.239.2. 7.3.110463.315 2019 Unknown [id number] 2019 Unknown [facility] [id number] xxxxxxxxx 2019-Present [address] [address] [place] [address] xxxxxxxxx 1.2.840.775424.1.13.239.2. 7.3.035603.315 1981 Unknown [id number] 2.16840.1.592204.3.579.2. 175 1981 Unknown [id number] 2.16840.1.691422.3.579.2. 173 1981 Unknown [id number] 2.16840.1.224838.3.579.2. 173 1981 Unknown [id number] 2.16840.1.826932.3.579.2. 173 1981 Unknown [id number] 2.16840.1.735530.3.579.2. 173 1981 Unknown [id number] 2.16840.1.164962.3.579.2. 173 1981 Unknown [id number] 2.16840.1.195697.3.579.2. 173 1981 Unknown [id number] 2.16840.1.278570.3.579.2. 173 1981 Unknown [id number] 2.16840.1.867494.3.579.2. 173 1981 Unknown [id number] 2.16840.1.432001.3.579.2. 173 1981 Unknown [id number] 2.16840.1.817428.3.579.2. 173 1981 Unknown [id number] 2.16.840.1.142637.3.579.2. 173 1981 Unknown [id number] 2.16.840.1.261612.3.579.2. 173 1981 Unknown [id number] 2.16.840.1.274795.3.579.2. 173 1981 Unknown [id number] 2.16.840.1.289517.3.579.2. 173 1981 Unknown [id number] 2.16.840.1.189343.3.579.2. 173 1981 Unknown [id number] 2.16.840.1.872632.3.579.2. 173 1981 Unknown [id number] 2.16.840.1.792673.3.579.2. 173 1981 Unknown [id number] 2.16840.1.836611.3.579.2. 173 1981 Unknown [id number] 2.16.840.1.567861.3.579.2. 173 1981 Unknown [id number] 2.16.840.1.905522.3.579.2. 593 1981 Unknown [id number] 2.16.840.1.004854.3.579.2. 593 1981 Unknown [id number] 2.16.840.1.299380.3.579.2. 593 1981 Unknown [id number] 2.16.840.1.668021.3.579.2. 593 1981 Unknown [id number] 2.16.840.1.697377.3.579.2. 727 1981 Unknown [id number] 2.16.840.1.466299.3.579.2. 727 1981 Unknown [id number] 2.16.840.1.839244.3.579.2. 1259 1981 Unknown [id number] 2.16.840.1.770665.3.579.2. 9 1981 Unknown [id number] 2.16.840.1.971173.3.579.2. 9 1981 Unknown [id number] 2.16.840.1.424488.3.579.2. 9 1981 Unknown [id number] 2.16.840.1.654247.3.579.2. 1258 1981 Unknown [id number] 2.16.840.1.469271.3.579.2. 9 1981 Unknown [id number] 2.16.840.1.550790.3.579.2. 9 1981 Unknown [id number] 2.16.840.1.127636.3.579.2. 9 1981 Unknown [id number] 2.16.840.1.682277.3.579.2. 9 1981 Unknown [id number] 2.16.840.1.733658.3.579.2. 196 1959 Unknown [id number] 1.2.840.223266.1.13.239.2. 7.3.143727.315 1959 Unknown [id number] Social History Date Type Detail Facility Start: 09-04-2019 End: 02-10-2023 Tobacco smoking status NHIS Never smoker [facility] Start: 09-04-2019 End: 03-27-2021 Alcohol intake Current non-drinker of alcohol (finding) [place] Start: 10-16-2017 Alcohol Comment very re[place] Start: 1981 Sex Assigned At Not on file [place], [place] Start: 05-12-2019 End: 01-11-2024 Alcohol intake No [facility] Start: 09-06-2019 End: 02-10-2023 Tobacco use and exposure Never used [place] Exposure to SARS-CoV -2 (event) Not sure [facility] Start: 03-27-2021 Alcohol Comment very rare Emma parikh Work Phone: Tobacco smoking status Never Clarissa loeraPorterKuldip [facility] [place] Start: 01-11-2024 End: 07-18-2024 Alcoholic beverage intake Current drinker of alcohol (finding) [facility] Start: 01-11-2024 End: 07-18-2024 Alcoholic beverage intake [facility] Start: 02-10-2023 Alcohol Comment caffeine intak e: 3-4 cups per day, soda [facility] Start: 10-03-2023 Gender identity Identifies as male gender (finding) [facility] Functional Status Date Assessment Result Facility 05-15-2024 Functional Status N/A [facility] [place] Clinical Notes 09-13-2021 to 07-18-2024 Ruth Ann Gonzalez NP - 07/18/2024 8:45 AM EDTInstructionsAttachments Note Date [...] 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 [place]: XR NOMS 11/28/23, [...] activities as tolerated documented in this encounter [facility] 05-15-2024 Note General Surgery Offi ce/Clinic [...] qualifying data Procedure/Surgica (more content not included)... 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 Son states he will give his father the message to return call. [facility] 07-06-2022 Note CONSULTATION CONSULTATION DATE: [...] in office. CC: Chen Kaplan CNP [facility] 09-13-2021 Hospital Discharge instructions Francis Pinto, - 09/13/2021 Return to the Emergency Department immediately if you develop worsening pain, numbness, weakness , or you have any other concerns. Please follow up with your orthopaeidc doctor in 2-3 days. Ice, elevate Use crutches The following attachments cannot be sent through Care Everywhere.Ankle Sprain (Filipino)documented in this encounter [facility] Phone: Evaluation + Plan note No data available for this section [facility] [employer] Evaluation note Diagnosis Strain of right wrist, initial encounter- Primary documented in this encounter [employer] Phone: evaluation note* Diagnosis Seropositive rheumatoid arthritis (HCC) Rheumatoid arthritis documented in this encounter [employer] Phone: evaluation note* Diagnosis Pain Generalized pain documented in this encounter [facility] Phone: evaluation note* Diagnosis Microscopic hematuria Flank pain Abdominal pain, unspecified site Hydronephrosis with ureteral calculus Calculus of ureter documented in this encounter [employer] Phone: evaljahozv note* Diagnosis Sprain of right foot, initial encounter- Primary Sprain of left ankle, unspecified ligament, initial encounter documented in this encounter [employer] Phone: evaluation note* Diagnosis Low back pain, unspecified back pain laterality, unspecified chronicity, unspecified whether sciatica present- Primary Bilateral sciatica Sciatica documented in this encounter [facility]* Attachments The following attachments cannot be sent through Care Everywhere. * Strain or Sprain (Filipino) documented in this encounterEverPresent Phone: Hospital Discharge instructions No data available for this section [facility] [employer] Progress note No data available for this section [facility] [employer] Summary Purpose Family History No Family History Records FoundNo Family History Records FoundNo Family History Records FoundNo Family History Records FoundNo Family History Records Found No data available for this section No Family History Records FoundNo Family History Records FoundNo Family History Records Found Advance Directives No Advanced Directives Records FoundDocuments on File Type Date Recorded Patient Manager Decision Support Expl anation Advance Directives and Living Will Power of Systems Analyst Documents on File Type Date Recorded Patient Manager Decision Support Expl anation ACP-Advance Directive ACP-Power of Systems Analyst Assessments Diagnosis Injury of right knee, initial [...] sent through Care Everywhere. * Finger: Bruises (Filipino) documented in this encounter* Attachments The following attachments cannot be sent through Care Everywhere. * Knee Sprain (Filipino) documented in this encounter Additional Source Comments (unrecognized sect ion and content) No Status Records FoundNo Status Records FoundNo Status Records FoundNo Status Records FoundNo Status Records FoundNo Status Records FoundNo Status Records FoundNo Status Records Found INFORMATION SOURCE (unrecogn ized section and content) DATE CREATED AUTHOR 04/26/2019 [facility] DATE CREATED AUTHOR AUTHOR'S ORGANIZ ATION 09/23/2021 [facility] DATE CREATED AUTHOR AUTHOR'S ORGANIZ ATION 02/16/2023 [facility] DATE CREATED AUTHOR AUTHOR'S ORGANIZ ATION 08/14/2023 [facility] DATE CREATED AUTHOR AUTHOR'S ORGANIZ ATION 11/13/2023 [facility] DATE CREATED AUTHOR AUTHOR'S ORGANIZ ATION 05/16/[address] [facility] DATE CREATED AUTHOR AUTHOR'S ORGANIZ ATION 07/20/2024 [facility] DATE CREATED AUTHOR AUTHOR'S ORGANIZ ATION 10/24/2024 [facility] Reason for Visit (unrecogniz ed section [...] Care Teams (unrecognized sec tion and content) Environmental Property Assessor Relationship Specialty Start Date End Date Clari Dumont [address] [place] [phone] PCP - General Nurse Practitioner 04/21/19 Environmental Property Assessor Relationship Specialty Start Date End Date Ac Schmid MD [address] [place] [phone] PCP - General Family Medicine 02/08/23 Isabella Kaplan MD [address] [place] [phone] Referring Physician Family Medicine 09/12/23 Environmental Property Assessor Relationship Specialty Start Date End Date Ac Schmid MD [address] [place] [phone] PCP - General Family Medicine 02/08/23 Isabella Kaplan MD [address] [place] [phone] Referring Physician Family Medicine 09/12/23 FOR RECORDS [...] BE BASED ON THE PRIMARY CLINICAL RECORDS. [employer] [facility]. provides no warranty or guarantee of the accuracy or completeness of information in this document.
--- NOTE | 2024-10-29 15:51 | ED_ITS ---
HPI HPI - Back Pain/Injury General Chief Complaint: Back Pain/Injury Stated Complaint: TAIL BONE PAIN Time Seen by Provider: 10/29/24 15:37 Source: patient Mode of arrival: walk-in Limitations: no limitations History of Present Illness HPI Narrative: Patient is a 44-year-old male with a history of chronic pain who presents to the emergency department for increasing pain in the left posterior hip radiating down the back of the left leg for the last several days. He is currently being treated with muscle relaxants and NSAIDs for back pain. He was found to have a lesion on his lumbar spine and had an MRI of his lumbar spine several weeks ago showing a 5.1 cm cystic lesion. It was recommended he have an MRI as well of the sacrum which is pending next week. Patient states he had an increase in pain and presents to the emergency department for pain control. No new falls or injuries. He has not had any urinary symptoms or incontinence. He is ambulatory. Related Data Home Medications ?Medication ?Instructions ?Recorded ?Confirmed allopurinol 100 mg tablet 100 mg PO DAILY 06/15/24 10/29/24 hydrochlorothiazide 25 mg tablet 25 mg PO DAILY 10/15/24 10/29/24 methocarbamol 750 mg tablet 750 mg PO BID PRN pain 10/15/24 10/29/24 nabumetone 500 mg tablet 500 mg PO BID 10/15/24 10/29/24 Previous Rx's ?Medication ?Instructions ?Recorded hydrocodone 5 mg-acetaminophen 325 1 tab PO Q6H PRN pain 3 days #12 10/29/24 mg tablet tabs ketorolac 10 mg tablet 10 mg PO TID PRN pain #10 tabs 10/29/24 Allergies Allergy/AdvReac Type Severity Reaction Status Date / Time Penicillins Allergy Severe Rash Verified 10/22/24 07:56 tramadol (From Ultram) Allergy Severe Rash Verified 10/22/24 07:56 Opioid HPI Opioid Management Most Recent Opioid Data: Last Pain Scale 7 10/22/24 07:52 10/22/24 Review of Systems ROS Constitutional Denies: fever or chills Ears, nose, mouth, and throat Denies: throat pain or nasal congestion Respiratory Denies: shortness of breath Gastrointestinal Denies: nausea or vomiting Musculoskeletal Reports: back pain; Denies: neck pain, extremity pain or extremity swelling Integumentary/Breast Denies: rash Neurological Denies: numbness in extremities or weakness in extremities Hematologic/Lymphatic Denies: easy bruising or easy bleeding [facility] Medical History (Updated 10/29/24 @ 15:47 by JIL Fairbanks) Obesity ?E66.9 - Obesity, unspecified (ICD-10) Low back strain ?S39.012A - Strain of muscle, fascia and tendon of lower back, initial encounter (ICD-10) Influenza ?J11.1 - Influenza due to unidentified influenza virus with other respiratory manifestations (ICD-10) Gastroenteritis ?K52.9 - Noninfective gastroenteritis and colitis, unspecified (ICD-10) Bronchiolitis ?J21.9 - Acute bronchiolitis, unspecified (ICD-10) Anxiety ?F41.9 - Anxiety disorder, unspecified (ICD-10) Finger sprain ?S63.619A - Unspecified sprain of unspecified finger, initial encounter (ICD- 10) Arthritis ?M19.90 - Unspecified osteoarthritis, unspecified site (ICD-10) Bipolar 1 disorder, depressed ?F31.9 - Bipolar disorder, unspecified (ICD-10) Cluster headaches ?G44.009 - Cluster headache syndrome, unspecified, not intractable (ICD-10) Hypertension ?I10 - Essential (primary) hypertension (ICD-10) DDD (degenerative disc disease) Rectal pain ?K62.89 - Other specified diseases of anus and rectum (ICD-10) Rectal bleeding ?K62.5 - Hemorrhage of anus and rectum (ICD-10) Insomnia ?G47.00 - Insomnia, unspecified (ICD-10) Normal colonoscopy Kidney stones, calcium oxalate ?N20.0 - Calculus of kidney (ICD-10) Anal fissure ?K60.2 - Anal fissure, unspecified (ICD-10) Surgical History Hx of colonoscopy ?Z98.890 - Other specified postprocedural states (ICD-10) Status post ORIF of fracture of ankle ?Z98.890 - Other specified postprocedural states (ICD-10) ?Z87.81 - Personal history of (healed) traumatic fracture (ICD-10) Family History Other Family history of COPD (chronic obstructive pulmonary disease) Family history of diabetes mellitus Family history of hypertension Heart disease Multiple kidney stones Social History Within the past year, how often did you have a drink containing alcohol: never Score interpretation: A score less than 4 is consistent with normal alcohol consumption. 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 Normal hip flexion bilaterally Psych: Normal mood and affect Neuro: No focal neuro deficit Skin: Warm, dry, intact Constitutional Vital Signs, click to edit/add: Last Vital Signs Temp 97.6 F 10/29/24 14:56 Pulse 89 10/29/24 14:56 Resp 18 10/29/24 14:56 BP 150/96 H 10/29/24 14:56 Pulse Ox 98 10/29/24 14:56 O2 Del Method Room Air 10/29/24 14:56 Course Vital Signs Vital signs: Vital Signs Temperature 97.6 F 10/29/24 14:56 Pulse Rate 89 10/29/24 14:56 Respiratory Rate 18 10/29/24 14:56 Blood Pressure 150/96 H 10/29/24 14:56 Pulse Oximetry 98 10/29/24 14:56 Oxygen Delivery Method Room Air 10/29/24 14:56 Temperature 97.6 F 10/29/24 14:56 Pulse Rate 89 10/29/24 14:56 Respiratory Rate 18 10/29/24 14:56 Blood Pressure 150/96 H 10/29/24 14:56 Pulse Oximetry 98 10/29/24 14:56 Oxygen Delivery Method Room Air 10/29/24 14:56 MDM - Back Pain/Injury MDM Narrative Medical decision making narrative: Patient with a benign exam consistent with left-sided sciatica. Patient given a short course of analgesics and NSAIDs. He was made aware that the emergency department cannot refill these medications and he will need to see his primary care provider for further narcotics SUPERVISED APC VISIT, PHYSICIAN ATTESTATION: Based on the medical record the care appears appropriate. ? Medical Records Attestation: I reviewed the patient's medical records. Discharge Plan Discharge Chief Complaint: Back Pain/Injury Clinical Impression: Low back pain, Left sided sciatica Patient Disposition: Home, Self-Care Time of Disposition Decision: 15:47 Condition: Good Prescriptions / Home Meds: New hydrocodone-acetaminophen 5-325 mg tablet 1 tab PO Q6H PRN (Reason: pain) 3 Days Qty: 12 0RF Rx Instructions: DX: M54.5 ketorolac 10 mg tablet 10 mg PO TID PRN (Reason: pain) Qty: 10 0RF No Action allopurinol 100 mg tablet 100 mg PO DAILY methocarbamol 750 mg tablet 750 mg PO BID PRN (Reason: pain) hydrochlorothiazide 25 mg tablet 25 mg PO DAILY nabumetone 500 mg tablet 500 mg PO BID Print Language: Maltese Instructions: Sciatica (ED), Acute Low Back Pain (ED) Additional Instructions: Please follow up for your MRI as scheduled. Please contact your doctor's office for additional pain medication if needed. Referrals: RODRIGUEZ KAPLAN [Primary Care Provider] - 1 week
== END 2024-10-29 16:05 | disposition home or self-care (01) ==
PROVIDERS: Emergency Provider Emergency Medicine; PCP Nurse Practitioner Family
DX: M54.42 Lumbago with sciatica, left side (principal)
CPT/HCPCS: 99283

== ENCOUNTER 2024-10-31 10:16 | Outpatient (OUT) | payer MEDICAID, SELFPAY ==
--- OUTSIDE RECORDS SUMMARY | 2024-10-31 10:32 | XMS_ITS | CCD ---
Author Organization [facility] Informat ion Partnership [facility] Care Team Providers Care Oenologist Name Role Phone LEROYJEAN Primary Care Unavailable KENYATTA KEN Attending Unavailable FAN, ARTEMIO Consulting Unavailable Mikala, Clari A Primary Care Provider Mikala, Clari A Primary Care Provider Mikala, Clari A Primary Care Provider MIKALA, CLARI A Primary Care Unavailable SHAHRZAD ZENG Referring Unavailable MIKALA, CLARI A Primary Care Unavailable MIKALA, CLARI A Primary Care Unavailable QUINCY INTERIANO R Referring Unavailable MIKALA, CLARI A Primary Care Unavailable QUINCY INTERIANO R Referring Unavailable INTERIANO, QUINCY R Referring Unavailable MIKALA, CLARI A Primary Care Unavailable SHAHRZAD ZENG Referring Unavailable MIKALA, CLARI A Primary Care [...] MIKALA, CLARI A Primary Care Unavailable FRANCIS PNITO Attending Unavailable MIKALA, CLARI A Primary Care Unavailable KATE OLIVIER Attending Unavailable MIKALA, CLARI A Primary Care Unavailable EUSEBIO, ISABELLA Primary Care Unavailable CONTRERAS ., DR YULI Schmidt Attending Unavailable CONTRERAS ., DR YULI Schmidt Consulting Unavailable CONTRERAS ., DR YULI Schmidt Admitting Unavailable EUSEBIO, ISABELLA Primary Care Unavailable YOANA ., DR PEARSON Referring Unavailable HOY ., [...] Unavailable EUSEBIO, ISABELLA Primary Care Unavailable Ruiz JEM, Lakshmi Attending Unavailable MIKALA, CLARI A Primary Care Physician [phone] ISABELLA KAPLAN Referring Unavailable NILLDavid Attending Unavailable EUSEBIO, ISABELLA S Referring Unavailable NILL, David Loera Attending Unavailable Yoana FARIAS, Ac Godwin Primary Care Provider Eusebio FARIAS, Isabella Unavailable NICOLETTE, RUTH ANN Elkins Attending Unavailable APLING, RUTH ANN B Referring Unavailable APLING, RUTH ANN B Referring Unavailable APLING, RUTH ANN Elkins Attending Unavailable APLING, RUTH ANN Elkins Attending Unavailable WILL SANTANA Attending Unavailable APLING, RUTH ANN Elkins Attending Unavailable APLING, RUTH ANN Elkins Referring Unavailable APLING, RUTH ANN Elkins Attending Unavailable Ashwini FARIAS, Lee Reyes Attending Unavailable Ashwini FARIAS, Lee Reyes Attending Unavailable Allergies Allergy Classification Reported Allergen(s) Allergy Type Date of Onset Reaction(s) Facility Opioid Agonists (13 sources) traMADol Drug Allergy 6 Rash [facility] Penicillins (antibiotic) (13 sources) Penicillins Drug Allergy 1 Rash [facility] (7 sources) Penicillins; Translations: [penicillins] Propensity to adverse reactions to drug 1 Rash, Eruption of skin (disorder) [facility]- [place], [place] (9 sources) traMADol; Translations: [tramadol] Drug Allergy 6 Rash, Eruption of skin (disorder) [facility], [place] (2 sources) Penicillin; Translations: [penicillin] Drug Allergy 8 [facility] (2 sources) traMADol; Translations: [Ultram] Drug Allergy [facility] (3 sources) Naproxen Drug Allergy [...] BID, # 20 cap(s), Refills(s) 0, Pharmacy: [facility]22, 160, cm, 05/04/21 15:08:00 [...] you for choosing us for your care. [facility] Ambulatory Visit Summary Ambulatory Visit Summary THANIA [...] choosing us for your care. Normal [facility] Physician Referralon 023 Physician Referral [phone] [id number] TIFF Normal [facility] MRI LSPINE WO CONon 05-21-20 22 [...] MICHAEL RAE Date: 2022-05-21 18:38 Normal [facility] XR FOREIGN BODY EYEon 2021 XR FOREIGN BODY EYE EXAMINATION: XR FOREIGN BODY EYE HISTORY: Foreign body in eye COMPARISON: No relevant comparison available. FINDINGS: ORBITS: Negative for a metallic foreign body. OTHER: Negative. IMPRESSION: 1. No metallic foreign body within the orbits. Electronically authenticated by: APRYL RIOS Date: 2022-05-21 10:36 Normal [facility] XR LSPINE MIN 4 VIEWSon [...] APRYL RIOS Date: 2022-02-22 11:06 Normal [facility] CBC with Diffon 09-23-2021 Abs. Basophil 0.02 k/uL Normal 0.0-0.2 [facility] Comment on above: Performed By: #### C JESSICA, CP, IPF ####[facility] [place] [address] Lab Director: Michael Meyer MD Abs.Imm.Granulocyte 0.02 k/uL Normal 0.00-0.30 [facility] Comment on above: Performed By: #### C JESSICA CP, IPF ####[facility] [place] [address] Lab Director: Michael Meyer MD Abs.Neutrophil (Seg) 1.28 k/uL Low 1.50-8.10 [facility] Comment on above: Performed By: #### C ELOY LOPEZ, IPF ####[address] , [place] [address])[phone] Director: Michael Meyer MD Basophils/100 WBC (Bld) 1 % Normal 0-2 [facility] Comment on above: Performed By: #### C JESSICA CP, IPF ####[address] , [place] [address])[phone] Director: Michael Meyer MD Eosinophils (Bld) [#/Vol] 0.00 10*3/uL Normal 0.00-0.44 [facility] Comment on above: Performed By: #### C ELOY LOPEZ, IPF ####[address] , [place] [address])[phone] Director: Michael Meyer MD Eosinophils/100 WBC (Bld) 0 % Low 1-4 [facility] Comment on above: Performed By: #### C ELOY LOPEZ, IPF ####[address] , [facility]83[facility])[phone] Director: Michael Meyer MD Immature granulocytes/100 WBC (Bld) 1 % High 0 [facility] Comment on above: Performed By: #### C ELOY LOPEZ, IPF ####[address] , [facility]83[facility])[phone] Director: Michael Meyer MD Lymphocytes (Bld) [#/Vol] 0.73 10*3/uL Low 1.10-3.70 [facility] Comment on above: Performed By: #### C ELOY LOPEZ, IPF ####[address] [place] [address]([facility])[phone] Director: Michael Meyer MD Lymphocytes/100 WBC (Bld) 33 % Normal 24-43 [facility] Comment on above: Performed By: #### C DP, CP, IPF ####[address] [place] [address] Lab Director: Michael Meyer MD Monocytes (Bld) [#/Vol] 0.15 10*3/uL Normal 0.10-1.20 [facility] Comment on above: Performed By: #### C DP, CP, IPF ####[address] [place] [address] Lab Director: Michael Meyer MD Monocytes/100 WBC (Bld) 7 % Normal 3-12 [facility] Comment on above: Performed By: #### C DP, CP, IPF ####[address] [place] [address] Lab Director: Michael Meyer MD Morphology Fernando (Bld) [Interp] Platelet scan shows Normal Platelets Normal [facility] Comment on above: Performed By: #### C DP, CP, IPF ####[address] [place] [address] Lab Director: Michael Meyer MD Neutrophil (Seg) 58 % Normal 36-65 [facility] Comment on above: Performed By: #### C DP, CP, IPF ####[address] [place] [address] Lab Director: Michael Meyer MD Erythrocyte distribution width (RBC) [Ratio] 11.2 % Low 11.8-14.4 [facility] Comment on above: Performed By: #### C DP, CP, IPF ####[address] [place] [address] Lab Director: Michael Meyer MD Hematocrit (Bld) [Volume fraction] 46.3 % Normal 40.7-50.3 [facility] Comment on above: Performed By: #### C DP, CP, IPF ####[address] , [place] [address] lab Director: Michael Meyer MD Hemoglobin (Bld) [Mass/Vol] 15.6 g/dL Normal 13.0-17.0 [facility] Comment on above: Performed By: #### C DP, CP, IPF ####[address] , [place] [phone] lab Director: Michael Meyer MD MCH (RBC) [Entitic mass] 28.5 pg Normal 25.2-33.5 [facility] Comment on above: Performed By: #### C DP, CP, IPF ####[address] , [place] 6[address] lab Director: Michael Meyer MD MCHC (RBC) [Mass/Vol] 33.7 g/dL Normal 28.4-34.8 [facility] Comment on above: Performed By: #### C DP, CP, IPF ####[address] , [place] [phone] lab Director: Michael Meyer MD MCV (RBC) [Entitic vol] 84.6 fL Normal 82.6-102.9 [facility] Comment on above: Performed By: #### C DP, CP, IPF ####[address] , [place] [phone] lab Director: Michael Meyer MD NRBC Automated 0.0 per 100 WBC Normal 0.0 [facility] Comment on above: Performed By: #### C DP, CP, IPF ####[address] , [place] 0115[address] lab Director: Michael Meyer MD Platelet Count See Reflexed IPF Result Normal 138-453 [facility] Comment on above: Performed By: #### C DP, CP, IPF ####[address] , [place] 294[address]83 lab Director: Michael Meyer MD RBC (Bld) [#/Vol] 5.47 10*6/uL Normal 4.21-5.77 [facility] Comment on above: Performed By: #### C DP, CP, IPF ####[address] [place] [address] Lab Director: Michael Meyer MD WBC (Bld) [#/Vol] 2.2 10*3/uL Low 3.5-11.3 [facility] Comment on above: Performed By: #### C DP, CP, IPF ####[address] [place] [address] Lab Director: Michael Meyer MD Auto Diff Performed NOT REPORTED Normal [facility] Comment on above: Performed By: #### C DP, CP, IPF ####[address] , [facility]83[facility])[phone] Director: Michael Meyer MD MPV NOT REPORTED Normal 8.1-13.5 [facility] Comment on above: Performed By: #### C DP, CP, IPF ####[address] , [place] [phone] Director: Michael Meyer MD Platelet Comment NOT REPORTED Normal [facility] Comment on above: Performed By: #### C DP, CP, IPF ####[address] , [place] [phone] Director: Michael Meyer MD RBC morphology finding Nom (d) NOT REPORTED Normal [facility] Comment on above: Performed By: #### C DP, CP, IPF ####[address] [place] [address] Lab Director: Michael Meyer MD WBC Morphology NOT REPORTED Normal [facility] Comment on above: Performed By: #### C DP, CP, IPF ####[address] [place] [address] Lab Director: Michael Meyer MD Comp Metabolic Profon 2020 (cont.) Normal [facility] Comment on above: Result Comment: Aver age GFR for 40-49 years old: 99 mL/min/1.73sq m Chronic Kidney Disease: <60 mL/min/1.73sq m Kidney failure: <15 mL/min/1.73sq m eGFR calculated using average adult body mass. Additional eGFR calculator available at: http://www.[employer]/multiple_crcl_2012.htm Performed By: #### C DP, CP, IPF ####[address] [place] [address] Lab Director: Michael Meyer MD Albumin [Mass/Vol] 4.1 g/dL Normal 3.5-5.2 [facility] Comment on above: Performed By: #### C DP, CP, IPF ####[address] , [place] [address]83 Lab Director: Michael Meyer MD Albumin/Glob Ratio 1.1 Normal 1.0-2.5 [facility] Comment on above: Performed By: #### C DP, CP, IPF ####[address] , [place] 264[address]83 Lab Director: Michael Meyer MD Alkaline Phos 87 U/L Normal 40-129 [facility] Comment on above: Performed By: #### C DP, CP, IPF ####[address] , [place] 3858683 Lab Director: Michael Myeer MD ALT [Catalytic activity/Vol] 65 U/L High 5-41 [facility] Comment on above: Performed By: #### C DP, CP, IPF ####[address] [place] [address] Lab Director: Michael Meyer MD Anion gap [Moles/Vol] 13 mmol/L Normal 9-17 [facility] Comment on above: Performed By: #### C DP, CP, IPF ####[address] , [place] 1941583 Lab Director: Michael Meyer MD AST [Catalytic activity/Vol] 68 U/L High <40 [facility] Comment on above: Performed By: #### C DP, CP, IPF ####[address] , [place] 4452983 lab Director: Michael Meyer MD Bilirubin [Mass/Vol] 0.52 mg/dL Normal 0.3-1.2 [facility] Comment on above: Performed By: #### C DP, CP, IPF ####[address] , [place] 9193883 lab Director: Michael Meyer MD BUN/CRE Ratio 8 Low 9-20 [facility] Comment on above: Performed By: #### C JESSICA, CP, IPF ####[address] , [place] 028[address]83 lab Director: Michael Meyer MD Calcium [Mass/Vol] 8.8 mg/dL Normal 8.6-10.4 [facility] Comment on above: Performed By: #### C DP, CP, IPF ####[address] , [place] [phone] lab Director: Michael Meyer MD Chloride [Moles/Vol] 100 mmol/L Normal 98-107 [facility] Comment on above: Performed By: #### C DP, CP, IPF ####[address] , [place] 6844283 lab Director: Michael Meyer MD CO2 [Moles/Vol] 23 mmol/L Normal 20-31 [facility] Comment on above: Performed By: #### C DP, CP, IPF ####[address] [place] [address] Lab Director: Michael Meyer MD Creatinine [Mass/Vol] 1.55 mg/dL High 0.70-1.20 [facility] Comment on above: Performed By: #### C DP, CP, IPF ####[address] , [place] 3744383 Lab Director: Michael Meyer MD GFR, Amer >60 Normal >60 [facility] Comment on above: Performed By: #### C DP, CP, IPF ####[address] [place] [address] Lab Director: Michael Meyre MD GFR,non Amer 50 mL/min Low >60 [facility] Comment on above: Performed By: #### C DP, CP, IPF ####[address] [place] [address] Lab Director: Michael Meyer MD Glucose [Mass/Vol] 94 mg/dL Normal 70-99 [facility] Comment on above: Performed By: #### C DP, CP, IPF ####[address] , [place] 3713483 Lab Director: Michael Meyer MD Potassium [Moles/Vol] 3.9 mmol/L Normal 3.7-5.3 [facility] Comment on above: Performed By: #### C DP, CP, IPF ####[address] [place] [address] Lab Director: Michael Meyer MD Protein [Mass/Vol] 7.9 g/dL Normal 6.4-8.3 [facility] Comment on above: Performed By: #### C DP, CP, IPF ####[address] , [place] 6723783 Lab Director: Michael Meyer MD Sodium [Moles/Vol] 136 mmol/L Normal 135-144 [facility] Comment on above: Performed By: #### C ELOY LOPEZ, IPF ####[address] [place] [address] Lab Director: Michael Meyer MD Staging: Normal [facility] Comment on above: Result Comment: Stag e 1: Some kidney damage normal GFR Stage 2: Mild kidney damage GFR 60-89 Stage 3: Moderate kidney damage GFR 30-59 Stage 4: Severe kidney damage GFR 15-29 Stage 5: Severe kidney damage GFR <15 ESRD - chronic treatment by dialysis or transplant Performed By: #### C ELOY LOPEZ, IPF ####[address] [place] [address] lab Director: Michael Meyer MD Urea nitrogen [Mass/Vol] 13 mg/dL Normal 6-20 [facility] Comment on above: Performed By: #### C ELOY LOPEZ, IPF ####[address] , [place] [phone] Lab Director: Michael Meyer MD Lactic Acidon 09-23-2021 Lactate [Moles/Vol] 0.9 mmol/L Normal 0.5-2.2 [facility] Comment on above: Performed By: #### L ACTIC ####[address] , [place] 019[address]83 lab Director: Michael Meyer MD Lactic Acid,Whole Bl NOT REPORTED Normal 0.7-2.1 [facility] Comment on above: Performed By: #### L ACTIC ####[address] [place] [address] Lab Director: Michael Meyer MD PLT, Immature Fract.on 09-23 Platelet, Fluoresc. 42 k/uL Low 138-453 [facility] Comment on above: Performed By: #### C ELOY LOPEZ, IPF #### [address] [place] [address] Transport Company Manager: Michael Meyer MD PLT, Immature Fract. 1.2 % Normal 1.1-10.3 [facility] Comment on above: Performed By: #### C DP, CP, IPF #### [facility] [address] [place] [address] [place] [address] Transport Company Manager: Michael Meyer MD XR CHEST (SINGLE [...] by: Will Calderón 09/22/21 Final result Normal [facility] Resp Viral Panelon Adenovirus Not detected Normal [facility] Comment on above: Performed By: #### R [employer]ILFIELD PLANT [employer] FIELD OPERATOR ####[facility] [address] [place] [address] Lab Director: Juan R Tang[address] [place] [address] Lab Director: Michael Meyer MD Bordet.parapertussis Not detected Normal [facility] Comment on above: Performed By: #### R [employer] PL[employer] FIELD OPERATOR ####[facility] [address] [place] [address] Lab Director: Juan R Tang[address] [place], [place] [address]83 Lab Director: Michael Meyer MD Bordetella pertussis Not detected Normal [facility] Comment on above: Performed By: #### R OILFIELD PLANT [employer] FIELD OPERATOR ####[facility] [address] [place] [address] Lab Director: Juan R aTng[address] [place] [address] Lab Director: Michael Meyer MD Chlamyd.pneumoniae Not detected Normal [facility] Comment on above: Performed By: #### R OILFIELD PLANT [employer] FIELD OPERATOR ####[facility] [address] [place] [address] Lab Director: Juan R Tang[address] [place] [address] Lab Director: Michael Meyer MD Coronavirus 229E Not detected [facility] Comment on above: Performed By: #### R OILFIELD PLANT [employer] FIELD OPERATOR ####[place] [address] [place], [place] [phone] Director: Juan R Tang[address] [place] [address] Lab Director: Michael Meyer MD Coronavirus HKU1 Not detected [facility] Comment on above: Performed By: #### R [employer]ILFIELD PL[employer] FIELD OPERATOR ####[place] [address] [place] [address] Lab Director: Juan R Tang[address] [place] [address] Lab Director: Michael Meyer MD Coronavirus NL63 Not detected [facility] Comment on above: Performed By: #### R [employer] FIELD OPERATOR ####[facility] [address] [place] [address] Lab Director: Juan R Tang[address] [place] [address] Lab Director: Michael Meyer MD Coronavirus OC43 Not detected [facility] Comment on above: Performed By: #### R OILFIELD PL[employer] FIELD OPERATOR ####[facility] [address] [place], [place] [phone])[phone] Director: Juan R [address] [place] [address] Lab Director: Michael Meyer MD Human Metapneumo Not detected [facility] Comment on above: Performed By: #### R O[employer] PL[employer] FIELD OPERATOR ####[facility] [address] [place], [place] [phone])[phone] Director: [address] [place] [address] Lab Director: Michael Meyer MD Influenza A Not detected [facility] Comment on above: Performed By: #### R OILFIELD PL[employer] FIELD OPERATOR ####[facility] [address] [phone])[phone] Director: Juan R [address] [place] [address] Lab Director: Michael Meyer MD Influenza B Not detected [facility] Comment on above: Performed By: #### R OILFIELD PLANT [employer] FIELD OPERATOR ####[address] [phone])[phone] Director: Juan R [address] [place] [address] Lab Director: Michael Meyer MD Mycoplas.pneumoniae Not detected Normal [facility] Comment on above: Result Comment: Perf ormed by multiplexed nucleic acid assay. Performed By: #### R OIL[employer] PLANT [employer] FIELD OPERATOR ####[facility] [address] [place], [place] [phone])[phone] Director: Juan R [address] [place] [address] Lab Director: Michael Meyer MD Parainfluenza 1 Not detected Normal [facility] Comment on above: Performed By: #### R OILFIELD PL[employer] FIELD OPERATOR ####[facility] [address] [place] [address] Lab Director: Juan R Tang[address] [place] [phone] Director: Michael Meyer MD Parainfluenza 2 Not detected [facility] Comment on above: Performed By: #### R OILFIELD PLANT [employer] FIELD OPERATOR ####[facility] [address] [place] [address] Lab Director: Juan R Tang[address] [place] [address] Lab Director: Michael Meyer MD Parainfluenza 3 Not detected [facility] Comment on above: Performed By: #### R OILFIELD PLANT [employer] FIELD OPERATOR ####[address] [address] Lab Director: Juan R Tang[address] [place] [address] Lab Director: Michael Meyer MD Parainfluenza 4 Not detected [facility] Comment on above: Performed By: #### R OILFIELD PLANT AND FIELD OPERATOR ####[facility] [place] [address] Lab Director: Juan R Tang[address] [place] [address] Lab Director: Michael Meyer MD Resp Syncytial Virus Not detected Normal [facility] Comment on above: Performed By: #### R OILFIELD PLANT [employer] FIELD OPERATOR ####[facility] [address] [place] [address] Lab Director: Juan R [facility] [place] [address] Lab Director: Michael Meyer MD Rhino/Enterovirus Not detected [facility] Comment on above: Performed By: #### R OILFIELD PL[employer] FIELD OPERATOR ####[place] [address] [place], [place] [phone] Director: Juan R Tang[address] [place] [address] Lab Director: Michael Meyer MD SARS-CoV-2 (COVID-19) RNA LYNDON+probe Ql (Unsp spec) Detected Abnormal [facility] Comment on above: Result Comment: Resu lts reported to the appropriate Health Department Performed By: #### R OILFIELD PLANT [employer] FIELD OPERATOR ####[address] [phone] Director: Juan R Tang[address] [place] [address] Lab Director: Michael Meyer MD Resp Viral Panelon 1 Source: .NASOPHARYNGEAL SWAB Normal [facility] Comment on above: Performed By: #### R OILFIELD PLANT [employer] FIELD OPERATOR ####[address] [phone])[phone] Director: Juan R Tang[address] [place] [address] Lab Director: Michael Meyer MD Influenza A H1 NOT REPORTED Normal [facility] Comment on above: Performed By: #### R [employer]ILFIELD PL[employer] FIELD OPERATOR ####[address] [phone] Director: Juan R Tang [address] [place] [address] Lab Director: Michael Meyer MD Influenza A H1-2009 NOT REPORTED Normal [facility] Comment on above: Performed By: #### R [employer]ILFIELD PLANT [employer] FIELD OPERATOR ####[address] [phone] Director: Juan R Tang[address] [place] [address] Lab Director: Michael Meyer MD Influenza A H3 NOT REPORTED Normal [facility] Comment on above: Performed By: #### R OILFIELD PLANT [employer] FIELD OPERATOR ####[facility] [address] [place] [address] lab Director: Juan R Tang, [facility] [address] [place] [address] lab Director: Michael Meyer MD No Panel Informationon 09-13 No acute findings. [facility] EXAMINATION: THREE XRAY VIEWS OF THE RIGHT ANKLE; THREE XRAY VIEWS OF THE LEFT FOOT 09/13/2021 9:16 am COMPARISON: None. HISTORY: ORDERING SYSTEM PROVIDED HISTORY: Pain TECHNOLOGIST PROVIDED HISTORY: Pain FINDINGS: No acute fracture demonstrated. 2 threaded screws noted medial malleolus from repair prior injury. Alignment anatomic. Small plantar and dorsal calcaneal spurs present. Scld-qi-gbnafabj degenerative change primarily midfoot. Overall alignment anatomic. Soft tissues unremarkable. [facility] Jeronimo Art DO - 09/13/2021 EXAMINATION: THREE XRAY VIEWS OF THE RIGHT ANKLE; THREE XRAY VIEWS OF THE LEFT FOOT 09/13/2021 9:16 am COMPARISON: None. HISTORY: ORDERING SYSTEM PROVIDED HISTORY: Pain TECHNOLOGIST PROVIDED HISTORY: Pain FINDINGS: No acute fracture demonstrated. 2 threaded screws noted medial malleolus from repair prior injury. Alignment anatomic. Small plantar and dorsal calcaneal spurs present. Uewd-fp-czhgktbc degenerative change primarily midfoot. Overall alignment anatomic. Soft tissues unremarkable. IMPRESSION: No acute findings. [facility]: [facility] Work Phone: No acute findings. [facility] EXAMINATION: THREE XRAY VIEWS OF THE RIGHT FOOT; THREE XRAY VIEWS OF THE LEFT ANKLE 09/13/2021 9:14 am COMPARISON: None. HISTORY: ORDERING SYSTEM PROVIDED HISTORY: pain TECHNOLOGIST PROVIDED HISTORY: pain FINDINGS: No acute fracture demonstrated. Alignment is anatomic. 2 threaded screws noted within the medial malleolus. Lllx-vm-oozkgryu degenerative change primarily midfoot. Small plantar and dorsal calcaneal spurs present. Soft tissues unremarkable. [facility] Jeronimo Herrera DO - 09/13/2021 EXAMINATION: THREE XRAY VIEWS OF THE RIGHT FOOT; THREE XRAY VIEWS OF THE LEFT ANKLE 09/13/2021 9:14 am COMPARISON: None. HISTORY: ORDERING SYSTEM PROVIDED HISTORY: pain TECHNOLOGIST PROVIDED HISTORY: pain FINDINGS: No acute fracture demonstrated. Alignment is anatomic. 2 threaded screws noted within the medial malleolus. Bdih-mk-zoymyikr degenerative change primarily midfoot. Small plantar and dorsal calcaneal spurs present. Soft tissues unremarkable. IMPRESSION: No acute findings. [facility] Phone: No Panel InformationOrdered By: Jeronimo Art on 09-13-2021 [facility] Phone: XR ANKLE LEFT (MIN 3 VIEWS)o n 09-13-2021 XR ANKLE LEFT (MIN 3 VIEWS) EXAMINATION: THREE XRAY VIEWS OF THE RIGHT FOOT; THREE XRAY VIEWS OF THE LEFT ANKLE 09/13/2021 9:14 am COMPARISON: None. HISTORY: ORDERING SYSTEM PROVIDED HISTORY: pain TECHNOLOGIST PROVIDED HISTORY: pain FINDINGS: No acute fracture demonstrated. Alignment is anatomic. 2 threaded screws noted within the medial malleolus. Kkgc-st-pedvsiuj degenerative change primarily midfoot. Small plantar and dorsal calcaneal spurs present. Soft tissues unremarkable. IMPRESSION: No acute findings. Interpreted by: Jeronimo Art DO Signed by: Jeronimo Art DO 09/13/21 Final result Normal [facility] Radiology Study observation (narrative) [facility] Phone: XR ANKLE RIGHT (MIN 3 VIEWS) [...] Small plantar and dorsal calcaneal spurs present. Tckg-pi-pbmhqhhk degenerative change primarily midfoot. Overall alignment anatomic. Soft tissues unremarkable. IMPRESSION: No acute findings. Interpreted by: Jeronimo Art DO Signed by: Jeronimo Art DO 09/13/21 Final result Normal [facility] Radiology Study observation (narrative) [facility] Phone: XR FOOT LEFT (MIN 3 VIEWS)on [...] Small plantar and dorsal calcaneal spurs present. Aral-df-ogoewjiz degenerative change primarily midfoot. Overall alignment anatomic. Soft tissues unremarkable. IMPRESSION: No acute findings. Interpreted by: Jeronimo Art DO Signed by: Jeronimo Art DO 09/13/21 Final result Normal [facility] Radiology Study observation (narrative) [facility] Phone: XR FOOT RIGHT (MIN 3 VIEWS)o n 09-13-2021 XR FOOT RIGHT (MIN 3 VIEWS) EXAMINATION: THREE XRAY VIEWS OF THE RIGHT FOOT; THREE XRAY VIEWS OF THE LEFT ANKLE 09/13/2021 9:14 am COMPARISON: None. HISTORY: ORDERING SYSTEM PROVIDED HISTORY: pain TECHNOLOGIST PROVIDED HISTORY: pain FINDINGS: No acute fracture demonstrated. Alignment is anatomic. 2 threaded screws noted within the medial malleolus. Ejri-sf-kffsyyfu degenerative change primarily midfoot. Small plantar and dorsal calcaneal spurs present. Soft tissues unremarkable. IMPRESSION: No acute findings. Interpreted by: Jeronimo Art DO Signed by: Jeronimo Art DO 09/13/21 Final result Normal [facility]iology Study observation (narrative) [facility] Phone: XR ABDOMEN (KUB) (SINGLE AP VIEW)on [...] Kerri Scott MD 05/08/21 Final result Normal [facility] XR ABDOMEN (KUB) (SINGLE AP VIEW)Ordered By: Quincy Interiano on 05-08-2021 Nonobstructive bowel gas pattern. No radiodensities diagnostic of nephroliths. [facility] Phone: EXAMINATION: ONE SUPINE XRAY VIEW(S) OF THE ABDOMEN 05/08/2021 10:35 am COMPARISON: 01 May 2021 HISTORY: ORDERING SYSTEM PROVIDED HISTORY: Microscopic hematuria FINDINGS: The bowel gas pattern is non obstructive. No organomegaly, free air or abnormal calcifications are noted. Mild levo scoliotic curvature is present. [facility] Phone: [place], pn Incoming Radiant Results From [employer] - 05/08/2021 2:06 PM EDT EXAMINATION: ONE SUPINE XRAY VIEW(S) OF THE ABDOMEN 05/08/2021 10:35 am COMPARISON: 01 May 2021 HISTORY: ORDERING SYSTEM PROVIDED HISTORY: Microscopic hematuria FINDINGS: The bowel gas pattern is non obstructive. No organomegaly, free air or abnormal calcifications are noted. Mild levo scoliotic curvature is present. IMPRESSION: Nonobstructive bowel gas pattern. No radiodensities diagnostic of nephroliths. [facility] Phone: [facility] Phone: No Panel InformationOrdered By: Fatuma Sanchez on 05-01-2021 1. No acute osseous abnormality of the right ankle. Posttraumatic and postsurgical changes as above. Mild tibiotalar joint osteoarthritis. 2. Acute osseous abnormality of the right foot. Chronic appearing well-defined erosion or subchondral cyst at the base of the 3rd metatarsal without associated joint space loss. This is a nonspecific finding. [facility] Phone: EXAMINATION: THREE XRAY VIEWS OF THE [...] base of the 3rd metatarsal is nonspecific. [facility] Phone: Luther, pn Incoming Radiant Results From [employer] - 05/01/2021 5:46 PM EDT EXAMINATION: THREE [...] space loss. This is a nonspecific finding. [facility] Phone: [facility] Phone: Unremarkable left wrist/left hand series. There are no plain radiographic findings to suggest an active synovial process of bone as rheumatoid arthritis [facility] Phone: EXAMINATION: 2 XRAY VIEWS OF THE LEFT WRIST; TWO XRAY VIEWS OF THE LEFT HAND 05/01/2021 11:10 am COMPARISON: None. HISTORY: ORDERING SYSTEM PROVIDED HISTORY: Seropositive rheumatoid arthritis (HCC) FINDINGS: The bones and joints are unremarkable without definite fracture, dislocation, significant degenerative/erosive change, radiopaque foreign body, abnormal soft tissue calcification or bony destructive lesion [facility] Phone: Luther, pn Incoming Radiant Results From [employer] - 05/01/2021 11:26 AM EDT EXAMINATION: 2 [...] synovial process of bone as rheumatoid arthritis [facility] Phone: [facility] Phone: XR ABDOMEN (KUB) (SINGLE AP VIEW)on [...] Linda Albarran MD 05/01/21 Final result Normal [facility] XR ABDOMEN (KUB) (SINGLE AP VIEW)Ordered By: Quincy Interiano on 05-01-2021 No significant radiographic abnormality in the abdomen. [facility] Phone: EXAMINATION: ONE SUPINE XRAY VIEW(S) OF THE ABDOMEN 05/01/2021 10:51 am COMPARISON: None. HISTORY: ORDERING SYSTEM PROVIDED HISTORY: Pain FINDINGS: Nonobstructive bowel gas pattern. No abnormal calcifications overlying the gallbladder urinary tract. No mass effect. Osseous structures grossly intact. [facility] Phone: Luther, pn Incoming Radiant Results From [employer] - 05/01/2021 11:21 AM EDT EXAMINATION: ONE SUPINE XRAY VIEW(S) OF THE ABDOMEN 05/01/2021 10:51 am COMPARISON: None. HISTORY: ORDERING SYSTEM PROVIDED HISTORY: Pain FINDINGS: Nonobstructive bowel gas pattern. No abnormal calcifications overlying the gallbladder urinary tract. No mass effect. Osseous structures grossly intact. IMPRESSION: No significant radiographic abnormality in the abdomen. [facility] Phone: [facility] Phone: XR ANKLE LEFT (MIN 3 VIEWS)o [...] Clarissa Gomez MD 05/01/21 Final result Normal [facility] XR ANKLE LEFT (MIN 3 VIEWS)O rdered By: Fatuma Sanchez on 05-01-2021 Moderate calcaneal spurring [facility] Phone: EXAMINATION: THREE XRAY VIEWS OF THE LEFT ANKLE 05/01/2021 11:12 am COMPARISON: None. HISTORY: ORDERING SYSTEM PROVIDED HISTORY: Seropositive rheumatoid arthritis (HCC) FINDINGS: There is moderate spurring of the superior aspect of the os calcis. The bones and joints are otherwise unremarkable without definite effusion, acute fracture, dislocation radiopaque foreign body or bony destructive lesion [facility] Phone: Luther, M[facility] Incoming Radiant Results From [employer] - 05/01/2021 11:21 AM EDT EXAMINATION: THREE [...] bony destructive lesion IMPRESSION: Moderate calcaneal spurring [facility] Phone: [facility] Phone: XR ANKLE RIGHT (MIN 3 VIEWS) [...] Michael Caceres MD 05/01/21 Final result Normal [facility] XR FOOT LEFT (2 VIEWS)on XR FOOT [...] Clarissa Gomez MD 05/01/21 Final result Normal [facility] XR FOOT LEFT (2 VIEWS)Ordere d By: Fatuma Sanchez on 05-01-2021 Mild degenerative changes There are no plain radiographic findings to suggest an active synovial process of bone as rheumatoid arthritis [facility] Phone: EXAMINATION: TWO XRA Y VIEWS OF [...] radiopaque foreign body or bony destructive lesion [facility] Phone: Luther, Mhpn Incoming Radiant Results From [employer] - 05/01/2021 11:29 AM EDT EXAMINATION: TWO [...] synovial process of bone as rheumatoid arthritis [employer] Work Phone: [facility]: XR FOOT RIGHT (2 VIEWS)on [...] Michael Caceres MD 05/01/21 Final result Normal [facility] XR HAND LEFT (2 VIEWS)on XR HAND [...] Clarissa Gomez MD 05/01/21 Final result Normal [facility] XR HAND RIGHT (2 VIEWS)on XR HAND [...] Clarissa Gomez MD 05/01/21 Final result Normal [facility] XR HAND RIGHT (2 VIEWS)Order ed By: Fatuma Sanchez on 05-01-2021 Unremarkable two-vie w right hand series. There are no definite plain radiographic findings to suggest an active synovial process of bone as rheumatoid arthritis [facility] Phone: EXAMINATION: TWO XRA Y VIEWS OF THE RIGHT HAND 05/01/2021 11:12 am COMPARISON: None. HISTORY: ORDERING SYSTEM PROVIDED HISTORY: Seropositive rheumatoid arthritis (HCC) FINDINGS: The bones and joints are unremarkable without definite fracture, dislocation, significant degenerative/erosive change, radiopaque foreign body, abnormal soft tissue calcification or bony destructive lesion [facility] Phone: [place], [facility] Incoming Radiant Results From [employer] - 05/01/2021 11:24 AM EDT EXAMINATION: TWO [...] synovial process of bone as rheumatoid arthritis [facility] Phone: [facility] Phone: XR WRIST LEFT (2 VIEWS)on XR [...] Clarissa Gomez MD 05/01/21 Final result Normal [facility] XR WRIST RIGHT (2 VIEWS)on 0 05-01-2021 [...] Clarissa Gomez MD 05/01/21 Final result Normal [facility] XR WRIST RIGHT (2 VIEWS)Orde red By: Fatuma Sanchez on 05-01-2021 Unremarkable two-vie w right wrist series [facility] Phone: EXAMINATION: 2 XRAY VIEWS OF THE RIGHT WRIST; 05/01/2021 11:11 am COMPARISON: None. HISTORY: ORDERING SYSTEM PROVIDED HISTORY: Seropositive rheumatoid arthritis (HCC) FINDINGS: The bones and joints are unremarkable without definite fracture, dislocation, significant degenerative/erosive change, radiopaque foreign body or bony destructive lesion [facility] Phone: Luther, Mhpn Incoming Radiant Results From [employer] - 05/01/2021 11:23 AM EDT EXAMINATION: 2 XRAY VIEWS OF THE RIGHT WRIST; 05/01/2021 11:11 am COMPARISON: None. HISTORY: ORDERING SYSTEM PROVIDED HISTORY: Seropositive rheumatoid arthritis (HCC) FINDINGS: The bones and joints are unremarkable without definite fracture, dislocation, significant degenerative/erosive change, radiopaque foreign body or bony destructive lesion IMPRESSION: Unremarkable two-view right wrist series [facility] Phone: [facility] Phone: XR WRIST RIGHT (MIN 3 VIEWS) [...] Ebenezer Pepe MD 03/01/21 Final result Normal [facility] XR WRIST RIGHT (MIN 3 VIEWS) Ordered By: Apryl Tucker on 03-01-2021 Unremarkable right wrist. [facility] Phone: EXAMINATION: 3 XRAY VIEWS OF THE [...] degenerative findings. No appreciable soft tissue abnormality. [facility] Phone: Luther, Mhpn Incoming Radiant Results From [employer] - 03/01/2021 7:52 PM EDT EXAMINATION: 3 [...] soft tissue abnormality. IMPRESSION: Unremarkable right wrist. [facility]: [facility] Work Phone: XR KNEE RIGHT (1-2 VIEWS)on [...] by: Damion Leung MD 11/07/20 CC Recipients: EDIE Ramon CNP - (authorizing provider) Final result Normal [facility] XR KNEE RIGHT (3 VIEWS)on Joint effusion witho ut acute osseous abnormality. [place] EXAMINATION: THREE XRAY VIEWS OF THE [...] effusion. The periarticular soft tissues are unremarkable. [place], [place] Luther, Mhpn Incoming Radiant Results From [employer] - 09/04/2019 6:08 PM EST EXAMINATION: THREE [...] IMPRESSION: Joint effusion without acute [facility]seous abnormality. [facility] (MIN 3 VIEWS)on 05-12-2019 No acute osseous abnormality. [facility] EXAM[facility]ATION: THREE XRAY VIEWS OF THE LEFT HAND 05/12/2019 12:22 pm COMPARISON: November 12, 2018 HISTORY: ORDERING SYSTEM PROVIDED HISTORY: pain TECHNOLOGIST PROVIDED HISTORY: pain FINDINGS: There is no evidence of acute fracture. There is normal alignment. No acute joint abnormality. No focal osseous lesion. No focal soft tissue abnormality. [facility], [facility] Incoming Radiant Results From [employer] - 05/12/2019 12:48 PM EDT EXAMINATION: THREE XRAY VIEWS OF THE LEFT HAND 05/12/2019 12:22 pm COMPARISON: November 12, 2018 HISTORY: ORDERING SYSTEM PROVIDED HISTORY: pain TECHNOLOGIST PROVIDED HISTORY: pain FINDINGS: There is no evidence of acute fracture. There is normal alignment. No acute joint abnormality. No focal osseous lesion. No focal soft tissue abnormality. IMPRESSION: No acute osseous abnormality. [facility] [place] MRI BRAIN WO CONTRASTon 04-03 MRI BRAIN [...] Tiffanie Hughes MD 04/24/19 Final result Normal [facility] MRI CERVICAL SPINE WO CONTRA [...] Tiffanie Hughes MD 04/24/19 Final result Normal [facility] Vital Signs Date Time Vital Sign Value Performing Clinician Robson henry 05-15-2024 14:12-0400 Blood Pressure Location [employer] [facility] 05-15-2024 14:12-0400 Diastolic blood pressure 76 mm[Hg] David TrendyolL [facility] 05-15-2024 14:12-0400 Heart rate 76 /min [employer] [facility] 05-15-2024 14:12-0400 Respiratory rate 16 /min David TrendyolL [facility] 05-15-2024 14:12-0400 Systolic blood pressure 118 mm[Hg] David TrendyolL [facility] 09-13-2021 08:22-0500 Diastolic blood pressure 86 mm[Hg] Francis Marleyjeremy DO Work Phone: [employer] 09-13-2021 08:22-0500 Systolic blood pressure 147 mm[Hg] Francis Beachrov DO Work Phone: [employer] 09-13-2021 08:20-0500 Body mass index (BMI) [Ratio] 37.2 kg/m2 Francis Beachrov DO Work Phone: [employer] 09-13-2021 08:20-0500 Body temperature 97.39 [degF] Francis Beachrov DO Work Phone: [employer] 09-13-2021 08:20-0500 Body weight 95.25 kg Francis Beachrov DO Work Phone: [employer] 09-13-2021 08:20-0500 Heart rate 85 /min Francis Beachrov DO Work Phone: [employer] 09-13-2021 08:20-0500 Respiratory rate 16 /min Francis Pinto DO Work Phone: [employer] 09-13-2021 08:20-0500 SaO2% (BldA) [Mass fraction] 99 % Francis Beachrojeremy DO Work Phone: [employer] 03-01-2021 18:28-0400 Diastolic blood pressure 96 mm[Hg] Lenet Work Phone: [employer] Work Phone: 03-01-2021 18:28-0400 Systolic blood pressure 151 mm[Hg] Clari Mikala Work Phone: [employer] Work Phone: 03-01-2021 18:26-0400 Body temperature 98.71 [degF] Lenet Work Phone: [employer] Work Phone: 03-01-2021 18:26-0400 Heart rate 70 /min Lenet Work Phone: [employer] Work Phone: 03-01-2021 18:26-0400 Respiratory rate 18 /min Clari Glasgowhmann Work Phone: [employer] Work Phone: 03-01-2021 18:26-0400 SaO2% (BldA) [Mass fraction] 98 % Clari Glasgowhmann Work Phone: [employer] Work Phone: 09-06-2019 20:00-0500 Body Temperature 97.9 [degF] [facility], [place] 09-06-2019 20:00-0500 BP Diastolic 100 mm[Hg] Oscar Corduro [facility] , [place] 09-06-2019 20:00-0500 BP Systolic 154 mm[Hg] Oscar Claytonimes [employer] [facility] , [place] 09-06-2019 20:00-0500 Pulse (Heart Rate) 89 /min [facility] [place] 09-06-2019 20:00-0500 Pulse Oximetry 97 % Oscar Corduro [facility] , [place] 09-06-2019 20:00-0500 Respiratory Rate 19 /min Oscar ClaytonB[facility], [place] 09-04-2019 17:38-0500 BMI (Body Mass Index) 36.49 kg/m2 David Huitronpatrick [facility], [place] 09-04-2019 17:38-0500 Body Temperature 98.2 [degF] [facility], [place] 09-04-2019 17:38-0500 Body weight 93.44 kg David Huitronpatrick [facility], [place] 09-04-2019 17:38-0500 BP Diastolic 94 mm[Hg] David Perez [facility], [place] 09-04-2019 17:38-0500 BP Systolic 142 mm[Hg] David Palmerk [facility], [place] 09-04-2019 17:38-0500 Pulse (Heart Rate) 87 /min David Carter [facility], [place] 09-04-2019 17:38-0500 Pulse Oximetry 99 % David Perez [facility], [place] 09-04-2019 17:38-0500 Respiratory Rate 14 /min David Carter [facility], [place] 05-12-2019 12:15-0400 Body Temperature 98.01 [degF] Clari Dumont [facility] [place] 05-12-2019 12:14-0400 BP Diastolic 85 mm[Hg] [facility] [place] 05-12-2019 12:14-0400 BP Systolic 152 mm[Hg] [facility] [place] 05-12-2019 12:14-0400 Pulse (Heart Rate) 87 /min [facility] [place] 05-12-2019 12:14-0400 Pulse Oximetry 96 % Clari Dumont [facility] , [place] 05-12-2019 12:14-0400 Respiratory Rate 16 /min [facility] [place] Encounters Encounter Date Encounter Type Care Provider Facility Start: 10-22-2024 End: 10-22-2024 ambulatory Lee Maradiaga MD Facility: [facility] Start: 10-15-2024 End: 10-15-2024 ambulatory Lee Maradiaga MD Facility: [facility] Start: 07-18-2024 End: 07-18-2024 Mitchell Gonzalez HEARING AID REPAIRER Work Phone: [facility] Start: 07-18-2024 End: 07-18-2024 Bamboo flowsnabil Gonzalez HEARING AID REPAIRER Work Phone: [facility] Start: 07-18-2024 End: 07-18-2024 Office outpatient visit 25 minutes Ruth Ann Gonzalez HEARING AID REPAIRER Work Phone: [facility] Comment on above: Low back pain, unspe cified back pain laterality, unspecified chronicity, unspecified whether sciatica present (Primary Dx); Bilateral sciatica Start: 07-18-2024 End: 07-18-2024 ambulatory RUTH ANN B APLING Not Available Start: 05-15-2024 End: 05-15-2024 ambulatory ISABELLA KAPLAN Facility: [place] Start: 05-15-2024 End: 05-15-2024 Patient encounter procedure David DIAMOND [facility] Start: 01-24-2024 End: 01-24-2024 ambulatory WILL SANTANA Not Available Start: 01-11-2024 End: 01-11-2024 ambulatory RUTH ANN B APLING Not Available Start: 12-12-2023 End: 12-12-2023 ambulatory RUTH ANN B APLING Not Available Start: 11-28-2023 End: 11-28-2023 ambulatory RUTH ANN B APLING Not Available Start: 09-27-2023 ambulatory ISABELLA KAPLAN Facilit y:DARIAN Nicholas Start: 09-12-2023 End: 09-12-2023 ambulatory RUTH ANN B APLING Not Available Start: 08-22-2023 ambulatory ISABELLA KAPLAN Facility: [place] Start: 08-12-2023 ambulatory Lakshmi Ruiz [facility] Start: 07-06-2022 End: 07-07-2022 ambulatory ISABELLA KAPLAN Facility:[facility] Start: 05-21-2022 End: 05-22-2022 ambulatory ISABELLA KAPLAN Facility:[facility] Start: 03-19-2022 End: 03-27-2022 ambulatory ISABELLA KAPLAN Facility:[facility] Start: 02-22-2022 End: 02-23-[address] APRYL RIOS Facility:[facility] Start: 09-23-2021 End: 09-23-2021 Emergency department patient visit KATE OLIVIER [facility] Start: 09-21-2021 End: 09-21-2021 Emergency department patient visit CLARI DUMONT [facility] Start: 09-13-2021 End: 09-13-2021 Emergency department patient visit FRANCIS PINTO [facility] Start: 09-13-2021 End: 09-13-2021 Emergency department patient visit Francis Pinto DO Work Phone: [facility] ED Comment on above: Sprain of right foot , initial encounter (Primary Dx); Sprain of left ankle, unspecified ligament, initial encounter Start: 05-08-2021 End: 05-11-2021 ambulatory QUINCY INTERIANO [facility] Start: 05-08-2021 End: 05-10-2021 Subsequent hospital visit by physician Karoline Meek Dr Room 4 [facility] Comment on above: Microscopic hematuri a; Flank pain; Hydronephrosis with ureteral calculus Start: 05-01-2021 End: 05-04-2021 ambulatory [facility] Start: 05-01-2021 End: 05-03-2021 Subsequent hospital visit by physician Karoline Meek Dr Room 2 [facility] Comment on above: Seropositive rheumat oid arthritis (HCC) Pain Start: 03-01-2021 End: 03-01-2021 Emergency department patient visit [place] Bacilio [facility] Start: 03-01-2021 End: 03-01-2021 Emergency department patient visit [facility] Work Phone: [facility] Comment on above: Strain of right wris t, initial encounter (Primary Dx) Start: 11-07-2020 End: 11-10-2020 ambulatory SHAHRZAD ZENG [facility] Start: 11-07-2020 End: 11-09-2020 [facility] Start: 09-06-2019 End: 09-06-2019 Emergency department patient visit Oscar Zuniga Work Phone: [facility] Comment on above: Sprain of collateral ligament of right knee, initial encounter (Primary Dx) Start: 09-04-2019 End: 09-04-2019 Emergency department patient visit David Perez [facility] ED Comment on above: Injury of right knee , initial encounter (Primary Dx); Effusion of right knee joint Start: 05-12-2019 End: 05-12-2019 [facility] Comment [facility] above: Contusion of left coles nd including fingers, initial encounter (Primary Dx) Start: 04-20-2019 End: 04-20-2019 Emergency department patient visit JEAN [facility] Procedures Date Procedure Procedure Detail Performing Clinician Start: 09-13-2021 End: 09-13-2021 Radex ankle complete minimum 3 views Francis Pnito DO Work Phone: Start: 05-08-2021 Radiologic exam [...] Mri brain brain stem w/o contrast material JEANCANDE HARPER Start: 04-20-2019 Mri spinal canal cer vical w/o contrast matrl JEANCANDE HARPER Start: 04-20-2019 IP CONSULT TO NEUROLOGY JEAN HARPER Bhargavi DIAMOND Fracture of ankle (disorder) David DIAMOND Plan of Treatment Date Care Activity Detail Author Start: 11-28-2027 DTaP/Tdap/Td vaccine (2 - Td or Tdap) DTaP/Tdap/Td vaccine (2 - Td or Tdap) [facility] Start: 11-28-2027 DTaP/Tdap/Td vaccine (2 - Td) DTaP/Tdap/Td vaccine (2 - Td) [facility] [place], [place] Start: 08-01-2024 End: 08-01-2024 Patient encounter procedure 08/01/2024 8:00 AM EDT Office Visit [facility] [address] [place] [address] Ruth Ann Gonzalez, HEARING AID REPAIRER [address] [place] [address] [facility] Start: 07-18-2024 End: 07-18-2024 Patient encounter procedure 07/18/2024 8:45 AM EDT Office Visit [facility] [address] [facility] [address] [place] [address] Ruth Ann Gonzalez, HEARING AID REPAIRER [address] [facility] [address] [place] [address] Low back pain, unspecified back pain laterality, unspecified chronicity, unspecified whether sciatica present (Primary Dx) [facility] Comment on above: Low back pain, unspe cified back pain laterality, unspecified chronicity, unspecified whether sciatica present (Primary Dx) Start: 11-25-2021 End: 11-25-2021 Patient encounter procedure 11/25/2021 Office Visit Rheumatology Fatuma Sanchez MD [address] [place] [id number] [facility] Start: 06-24-2021 End: 06-24-2021 Patient encounter procedure 06/24/2021 Office Visit Rheumatology Fatuma Sanchez MD [address] [place] [phone] [facility] Start: 06-03-2021 Influenza vaccination [facility] Start: 2021 Lipid panel Lipid screen [facility] Start: 06-03-2020 Influenza vaccination Flu vaccine (# 1) [place], [place] Start: 06-03-2019 Influenza vaccination Flu vaccine (# 1) [place] Start: 2016 Diabetes screen Diabetes screen [facility] Start: 2000 DTaP/Tdap/Td vaccine (1 - Tdap) DTaP/Tdap/Td vaccine (1 - Tdap) [place] Start: 1996 HIV screen HIV screen [place], [place] Start: 1996 HIV screening HIV screen [facility] Start: 1994 Varicella Vaccine (1 of 2 - 13+ 2-dose series) Varicella Vaccine (1 of 2 - 13+ 2-dose series) [place], [place] Start: 1993 COVID-19 Vaccine (1) COVID-19 Vaccin e (1) [facility] Start: 1992 DTaP/Tdap/Td vaccine (1 - Tdap) DTaP/Tdap/Td vaccine (1 - Tdap) [place] Start: 1982 Varicella Vaccine (1 of 2 - 2-dose childhood series) Varicella Vaccine (1 of 2 - 2-dose childhood series) [facility] Start: 1981 Hepatitis C screening Hepatitis C sc reen [facility] End: 05-12-2019 Splint application Splint application Procedures STAT One Time for 1 Occurrences starting 05/12/2019 until 05/12/2019 [place], [place] Comment on above: One Time for 1 Occur rences starting 05/12/2019 until 05/12/2019 Immunizations Immunization Date Immunization Notes Care Provider Fa [facility] 10-22-2019 influenza, injectable, quadrivalent, preservative free Ruth Ann Gonzalez NP Work Phone: [facility] 11-28-2017 tetanus toxoid, reduced diphtheria toxoid, and acellular pertussis vaccine, adsorbed Ruth Ann Gonzalez NP Work Phone: [facility] 07-14-2010 influenza virus vaccine, whole virus Clari Mikaal [place], [place] NEGATED: Highlighted row has not occurred!05-11-2021 SARS-CoV-2 (COVID-19) Ad26 vaccine, recombinant David NILL [facility] Payers Date Payer Category Payer Unknown 2024 [place] Blue Shield [facility] [id number] 2024 Unknown [id number] 2022 Medicaid [id number] 2020 Unknown [id number] 1.2.840.989327.1.13.239.2. 7.3.033047.315 2019 Unknown [id number] 2019 Unknown [facility] [id number] xxxxxxxxx 2019-Present [address] [address] [place] [address] xxxxxxxxx 1.2.840.638639.1.13.239.2. 7.3.474993.315 1981 Unknown [id number] 2.840.1.640771.3.579.2. 175 1981 Unknown [id number] 2.840.1.420047.3.579.2. 173 1981 Unknown [id number] 2.16840.1.912670.3.579.2. 173 1981 Unknown [id number] 2.840.1.941684.3.579.2. 173 1981 Unknown [id number] 2.840.1.974365.3.579.2. 173 1981 Unknown [id number] 2.16840.1.948812.3.579.2. 173 1981 Unknown [id number] 2.16840.1.164656.3.579.2. 173 1981 Unknown [id number] 2.16840.1.765198.3.579.2. 173 1981 Unknown [id number] 2.16840.1.620916.3.579.2. 173 1981 Unknown [id number] 2.16.840.1.472996.3.579.2. 173 1981 Unknown [id number] 2.16.840.1.197964.3.579.2. 173 1981 Unknown [id number] 2.16.840.1.405792.3.579.2. 173 1981 Unknown [id number] 2.16.840.1.911387.3.579.2. 173 1981 Unknown [id number] 2.16.840.1.976045.3.579.2. 173 1981 Unknown [id number] 2.16.840.1.529404.3.579.2. 173 1981 Unknown [id number] 2.16.840.1.040768.3.579.2. 173 1981 Unknown [id number] 2.16840.1.059117.3.579.2. 173 1981 Unknown [id number] 2.16.840.1.298904.3.579.2. 173 1981 Unknown [id number] 2.16.840.1.108073.3.579.2. 173 1981 Unknown [id number] 2.16.840.1.691220.3.579.2. 173 1981 Unknown [id number] 2.16840.1.416527.3.579.2. 593 1981 Unknown [id number] 2.16.840.1.134440.3.579.2. 593 1981 Unknown [id number] 2.16.840.1.803388.3.579.2. 593 1981 Unknown [id number] 2.16.840.1.629995.3.579.2. 593 1981 Unknown [id number] 2.16.840.1.764230.3.579.2. 727 1981 Unknown [id number] 2.16.840.1.774036.3.579.2. 727 1981 Unknown [id number] 2.16.840.1.255876.3.579.2. 9 1981 Unknown [id number] 2.16.840.1.709340.3.579.2. 1259 1981 Unknown [id number] 2.16.840.1.817970.3.579.2. 9 1981 Unknown [id number] 2.16.840.1.632924.3.579.2. 1259 1981 Unknown [id number] 2.16.840.1.254610.3.579.2. 9 1981 Unknown [id number] 2.16.840.1.264809.3.579.2. 9 1981 Unknown [id number] 2.16.840.1.961093.3.579.2. 9 1981 Unknown [id number] 2.16.840.1.247971.3.579.2. 9 1981 Unknown [id number] 2.16.840.1.603332.3.579.2. 9 1981 Unknown [id number] 2.16.840.1.327197.3.579.2. 196 1981 Unknown [id number] 2.16.840.1.186271.3.579.2. 196 1959 Unknown [id number] 1.2.840.590374.1.13.239.2. 7.3.060220.315 1959 Unknown [id number] Social History Date Type Detail Facility Start: 09-04-2019 End: 02-10-2023 Tobacco smoking status OKIS Never smoker [facility] Start: 09-04-2019 End: 03-27-2021 Alcohol intake Current non-drinker of alcohol (finding) [place], [place] Start: 10-16-2017 Alcohol Comment very reare [place], [place] Start: 1980 Sex Assigned At [facility] on file [facility] Start: 05-12-2019 End: 01-11-2024 Alcohol intake No [facility] Start: 09-06-2019 End: 02-10-2023 Tobacco use and exposure [facility] Exposure to SARS-CoV -2 (event) Not sure [facility] Start: 03-27-2021 Alcohol Comment very rare Emma parikh Work Phone: Tobacco smoking status Never [facility] Start: 01-11-2024 End: 07-18-2024 Alcoholic beverage intake Current drinker of alcohol (finding) [facility] Start: 01-11-2024 End: 07-18-2024 Alcoholic beverage intake [facility] Start: 02-10-2023 Alcohol Comment caffeine intak e: 3-4 cups per day, soda [facility] Start: 10-03-2023 Gender identity Identifies as male gender (finding) [facility] Functional Status Date Assessment Result Facility 05-15-2024 Functional Status N/A [facility] Clinical Notes 09-13-2021 to 07-18-2024 Ruth Ann [...] has a new job working at a [employer], 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 [place]: XR NOMS 11/28/23, [...] activities as tolerated documented in this encounter [facility] 05-15-2024 Note General Surgery Offi ce/Clinic [...] data Procedure/Surgica (more content not included)... [facility] Comment on above: Result Comment: Elec tronically Signed By: DARA FARIAS, David Merrill.br\Date and Time Signed: 05/15/24 14:59 EDT 11-11-2023 Note TC to Home number fo r HEARING AID REPAIRER referral for: Elevated Rheumatoid Factor Referral in digital media manager Spoke with son and provider Rheum clinic call back number. Son states he will give his father the message to return call. [facility] 07-06-2022 Note CONSULTATION CONSULTATION DATE: 07/06/2022 CHIEF [...] his work. 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 He has low back pain [...] in office. CC: Chen Kaplan CNP [facility] 09-13-2021 Hospital Discharge instructions Francis Pinto, - 09/13/2021 Return to the Emergency Department immediately if you develop worsening pain, numbness, weakness , or you have any other concerns. Please follow up with your orthopaeidc doctor in 2-3 days. Ice, elevate Use crutches The following attachments cannot be sent through Care Everywhere.Ankle Sprain (Prydeinig)documented in this encounter [facility] Phone: Evaluation + Plan note No data available for this section [facility] [place] [facility] [employer] Evaluation note Diagnosis Strain of right wrist, initial encounter- Primary documented in this encounter [facility] Phone: evaluation note* Diagnosis Seropositive rheumatoid arthritis (HCC) Rheumatoid arthritis documented in this encounter [facility] Phone: evaluation note* Diagnosis Pain Generalized pain documented in this encounter [facility] Phone: evalprmzei note* Diagnosis Microscopic hematuria Flank pain Abdominal pain, unspecified site Hydronephrosis with ureteral calculus Calculus of ureter documented in this encounter [facility] Phone: evaluation note* Diagnosis Sprain of right foot, initial encounter- Primary Sprain of left ankle, unspecified ligament, initial encounter documented in this encounter [facility] Phone: evaluation note* Diagnosis Low back pain, unspecified back pain laterality, unspecified chronicity, unspecified whether sciatica present- Primary Bilateral sciatica Sciatica documented in this encounter [facility] Attachments The following attachments cannot be sent through Care Everywhere. * Strain or Sprain (Prydeinig) [facility] Work Phone: Hospital Discharge instructions No data available for this section [facility] [place] Progress note No data available for this section [facility] [place] Summary Purpose Family History No Family History Records FoundNo Family History Records FoundNo Family History Records FoundNo Family History Records FoundNo Family History Records Found No data available for this section No Family History Records FoundNo Family History Records FoundNo Family History Records Found Advance Directives No Advanced Directives Records FoundDocuments on File Type Date Recorded Patient Transactional Attorney Expl anation Advance Directives and Living Will Power of Traffic Sergeant Documents on File Type Date Recorded Patient Transactional Attorney Expl anation ACP-Advance Directive ACP-Power of Traffic Sergeant Assessments Diagnosis Injury of right knee, initial [...] sent through Care Everywhere. * Finger: Bruises (Prydeinig) documented in this encounter* Attachments The following attachments cannot be sent through Care Everywhere. * Knee Sprain (Prydeinig) documented in this encounter Additional Source Comments (unrecognized sect ion and content) No Status Records FoundNo Status Records FoundNo Status Records FoundNo Status Records FoundNo Status Records FoundNo Status Records FoundNo Status Records FoundNo Status Records Found INFORMATION SOURCE (unrecogn ized section and content) DATE CREATED AUTHOR 04/26/2019 [facility] DATE CREATED AUTHOR AUTHOR'S ORGANIZ ATION 09/23/2021 [facility] DATE CREATED AUTHOR AUTHOR'S ORGANIZ ATION 02/16/2023 [facility] DATE CREATED AUTHOR AUTHOR'S ORGANIZ ATION 08/14/2023 [facility] DATE CREATED AUTHOR AUTHOR'S ORGANIZ ATION 11/13/2023 [facility] DATE CREATED AUTHOR AUTHOR'S ORGANIZ ATION 05/16/2024 [facility] DATE CREATED AUTHOR AUTHOR'S ORGANIZ ATION 07/20/2024 [facility] DATE CREATED AUTHOR AUTHOR'S ORGANIZ ATION 10/30/2024 [facility] Reason for Visit (unrecogniz ed section [...] Foot Pain 3rd & 4th toe on ht foot, across the top of left [...] Care Teams (unrecognized sec tion and content) Oenologist Relationship Specialty Start Date End Date Clari Dumont [address] [place] [address] PCP - General Nurse Practitioner 04/21/19 Oenologist Relationship Specialty Start Date End Date Ac Schmid MD [address] [place] [phone] PCP - General Family Medicine 02/08/23 Isabella Kaplan MD [address] [place] [phone] Referring Physician Family Medicine 09/12/23 Oenologist Relationship Specialty Start Date End Date Ac Schmid MD [address] [place] [phone] PCP - General Family Medicine 02/08/23 Isabella Kaplan MD [address] [place] [phone] Referring Physician Family Medicine 09/12/23 FOR RECORDS [...] BE BASED ON THE PRIMARY CLINICAL RECORDS. [facility] provides no warranty or guarantee of the accuracy or completeness of information in this document.
--- NOTE | 2024-10-31 10:51 | P.CN_ITS ---
Consult Note: HPI Data of Consult Patient: known to practice within the last 3 years Requesting Physician: Adeline Cosby NP Primary Care Provider: RODRIGUEZ KAPLAN Consult Narrative Reason for consult: f/u Narrative: Junior Gonzalez a pleasant 44 year old male presents for evaluation and management of chronic back and sacral pain. recent lumbar MRI consistent with lumbar disc bulge and lumbar stenosis with NC. pt has failed >6 weeks of PT/provider guided HEP tylenol heat ice and NSAIDs. pt was referred by NS Dr Elmore for bilateral L4-5 TFESI which pt recently underwent with 70% improvement in lumbar stenosis with NC symptoms. pain today 6/10 shooting burning pain in tailbone, pending sacral MRI for cysts noted in sacral region. denies falls, does report urinary incontinence and constipation which is newer. currently utilizing nabumetone and robaxin PRN without side effects. cc:: CC: Adeline Cosby NP Review of Systems ROS Status of ROS 10 or more systems reviewed and unremark able except as noted in history and below Gastrointestinal Reports: constipation Genitourinary Reports: other (urinary incontinence ) Musculoskeletal Denies: back pain PFSH PFSH Medical History (Updated 10/31/24 @ 10:56 by Adeline Cosby NP) Obesity ?E66.9 - Obesity, unspecified (ICD-10) Low back strain ?S39.012A - Strain of muscle, fascia and tendon of lower back, initial encounter (ICD-10) Influenza ?J11.1 - Influenza due to unidentified influenza virus with other respiratory manifestations (ICD-10) Gastroenteritis ?K52.9 - Noninfective gastroenteritis and colitis, unspecified (ICD-10) Bronchiolitis ?J21.9 - Acute bronchiolitis, unspecified (ICD-10) Anxiety ?F41.9 - Anxiety disorder, unspecified (ICD-10) Finger sprain ?S63.619A - Unspecified sprain of unspecified finger, initial encounter (ICD- 10) Arthritis ?M19.90 - Unspecified osteoarthritis, unspecified site (ICD-10) Bipolar 1 disorder, depressed ?F31.9 - Bipolar disorder, unspecified (ICD-10) Cluster headaches ?G44.009 - Cluster headache syndrome, unspecified, not intractable (ICD-10) Hypertension ?I10 - Essential (primary) hypertension (ICD-10) DDD (degenerative disc disease) Rectal pain ?K62.89 - Other specified diseases of anus and rectum (ICD-10) Rectal bleeding ?K62.5 - Hemorrhage of anus and rectum (ICD-10) Insomnia ?G47.00 - Insomnia, unspecified (ICD-10) Normal colonoscopy Kidney stones, calcium oxalate ?N20.0 - Calculus of kidney (ICD-10) Anal fissure ?K60.2 - Anal fissure, unspecified (ICD-10) Surgical History Hx of colonoscopy ?Z98.890 - Other specified postprocedural states (ICD-10) Status post ORIF of fracture of ankle ?Z98.890 - Other specified postprocedural states (ICD-10) ?Z87.81 - Personal history of (healed) traumatic fracture (ICD-10) Family History Other Family history of COPD (chronic obstructive pulmonary disease) Family history of diabetes mellitus Family history of hypertension Heart disease Multiple kidney stones Social History Within the past year, how often did you have a drink containing alcohol: never Score interpretation: A score less than 4 is consistent with normal alcohol consumption. 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 Highest level of school completed/degree received: high school graduate Little interest or pleasure in doing things: not at all Feeling down, depressed, or hopeless: not at all Meds Home Medications and Allergies Home Medications ?Medication ?Instructions ?Recorded ?Confirmed ?Type allopurinol 100 mg tablet 100 mg PO DAILY 06/15/24 10/29/24 History hydrochlorothiazide 25 mg tablet 25 mg PO DAILY 10/15/24 10/29/24 History methocarbamol 750 mg tablet 750 mg PO BID PRN pain 10/15/24 10/29/24 History nabumetone 500 mg tablet 500 mg PO BID 10/15/24 10/29/24 History hydrocodone 5 mg-acetaminophen 325 1 tab PO Q6H PRN pain 3 days #12 10/29/24 Rx mg tablet tabs ketorolac 10 mg tablet 10 mg PO TID PRN pain #10 tabs 10/29/24 Rx Allergies Allergy/AdvReac Type Severity Reaction Status Date / Time Penicillins Allergy Severe Rash Verified 10/22/24 07:56 tramadol (From Ultram) Allergy Severe Rash Verified 10/22/24 07:56 Exam Constitutional Documenting provider has reviewed patient's vital signs: yes Common normals: no apparent distress, oriented x3, healthy appearing, alert and well nourished General appearance: cooperative HENMT Common normals: normocephalic, hearing grossly normal bilaterally and moist oral mucous membranes Head and scalp: normocephalic Eye Common normals: PERRL Pupil: PERRL Neck & C-Spine Common normals: full ROM General: normal visual inspection Chest Common normals: inspection of chest normal Respiratory Common normals: normal respiratory effort, no retractions and no use of accessory muscles Back & Pelvis Lumbar spine/lower back: straight leg raise positive left; ROM not limited, no pain with ROM and no lumbar spinal tenderness Sacroiliac joints: SI joints normal Other: positive left SLR, strength 4/5 in LLE negative bilateral SIJ prabhakar(patricks), gaenslens, thigh thrust, compression test Neuro Common normals: oriented x3, CN's II-XII intact bilaterally, moves all extremities, no focal motor deficits, no sensory deficits noted and deep tendon reflexes 2+ bilaterally Sensorium/orientation: alert Motor exam: strength 5/5 throughout and no movement abnormalities noted Psych Common normals: mental status grossly normal, thought process normal, cooperative, affect normal, speech normal and activity/motor behavior normal Speech: normal speech Thought process: normal thought process Results Additional Findings Additional findings: If on a controlled substance or opioids, I have checked an [place]AR[place] report on this patient and there are no aberrancies noted in the prescribing history.??If on a controlled substance or opioid a drug screen was completed and reviewed within the last year, and if there has not been a drug screen completed we ordered one today to monitor higher risk, state monitored pain medication use. As part of providing excellent, safe, comprehensive care, the following was completed at our patient's visit: 1. A medication reconciliation and review to ensure accurate knowledge of current/active medications, including asking our patients to inform us about any [id number] medications or herbal remedies/nutritional supplements/alternative remedies. 2. A review to specifically ensure our patients have had annual screening for screening for depression, screening for tobacco use, and screening for unhealthy alcohol use. For concerning screenings had a discussion with the patient, provided patient education, and recommended follow-up with primary care provider when appropriate. If patient noted with a risk of falling, they received education on strength, gait, and balance training to prevent future risk of falling. Portions of this note may have been carried over from the previous visit and updated as appropriate. Please note this office utilizes paper charting in addition to the electronic medical record. A list of current medications, vitals, and PMH is available there as the clinical staff outside of myself do not have access to [facility] [employer] charting during the clinic day operations. As part of providing quality comprehensive care the current medications, vitals, and PMH were reviewed in the paper chart. Assessment and Plan Assessment and Plan (1) Lumbar stenosis with neurogenic claudication: (2) Lumbosacral radiculopathy: Plan upcoming sacral MRI next week, f/u with Dr Elmore for further management f/u with our office as directed by WINSTON/PRLuis
== END 2024-10-31 10:17 | disposition home or self-care (01) ==
LOC: PM 10:17
PROVIDERS: PCP Nurse Practitioner Family; Visit Provider Nurse Practitioner
DX: M48.062 Spinal stenosis, lumbar region with neurogenic claudication (principal); M54.16 Radiculopathy, lumbar region
CPT/HCPCS: G0463

== ENCOUNTER 2024-11-05 20:40 | Emergency (ER) | payer MEDICAID, SELFPAY ==
[2024-11-05 20:44] VITALS: BP 157/96; PULSE 93; TEMP 36.6; O2SAT 98; BMI 37.0
--- OUTSIDE RECORDS SUMMARY | 2024-11-05 20:49 | XMS_ITS | CCD ---
Author Organization [facility] Informat ion Partnership [facility] Care Team Providers Care Winemaker Name Role Phone LEROYJEAN Primary Care Unavailable KENYATTA KEN Attending Unavailable FAN, ARTEMIO Consulting Unavailable Mikala, Clari A Primary Care Provider Mikala, Clari A Primary Care Provider [phone] Mikala, Clari A Primary Care Provider MIKALA, [...] DR PEARSON Referring Unavailable HOY ., DR EPARSON Attending Unavailable HOY ., DR PEARSON Consulting [...] Unavailable MIKALA, CLARI A Primary Care Physician [phone] ISABELLA KAPLAN Referring Unavailable NILLDavid Attending Unavailable EUSEBIO, ISABELLA S Referring Unavailable NILL, David Loera Attending Unavailable Yoana FARIAS, Ac Godwin Primary Care Provider [phone] Eusebio FARIAS, Isabella Unavailable NICOLETTE, RUTH [...] traMADol Drug Allergy [address] [facility] Penicillins (antibiotic) (13 sources) Penicillins Drug Allergy [address] [facility] (7 sources) Penicillins; Translations: [penicillins] Propensity to adverse reactions to drug 1 Rash, Eruption of skin (disorder) [facility]- [place], [place] (9 sources) traMADol; Translations: [tramadol] Drug Allergy 6 Rash, Eruption of skin (disorder) [facility], [place] (2 sources) Penicillin; Translations: [penicillin] Drug Allergy 8 [facility] (2 sources) traMADol; Translations: [Ultram] Drug Allergy [facility] (3 sources) Naproxen Drug [...] BID, # 20 cap(s), Refills(s) 0, Pharmacy: [facility]22, 160, cm, 05/04/21 [...] choosing us for your care. [facility] Ambulatory Visit Summary Ambulatory Visit Summary THANIA [...] for choosing us for your care. Normal [facility] Physician Referralon 023 Physician Referral [phone] [id number] TIFF Normal [facility] MRI LSPINE WO CONon 05-21-20 22 MRI [...] MICHAEL RAE Date: 2022-05-21 18:38 Normal [facility] XR FOREIGN BODY EYEon 2021 XR FOREIGN BODY EYE EXAMINATION: XR FOREIGN BODY EYE HISTORY: Foreign body in eye COMPARISON: No relevant comparison available. FINDINGS: ORBITS: Negative for a metallic foreign body. OTHER: Negative. IMPRESSION: 1. No metallic foreign body within the orbits. Electronically authenticated by: APRYL RIOS Date: 2022-05-21 10:36 Normal [facility] XR LSPINE MIN 4 VIEWSon 02-01 [...] APRYL RIOS Date: 2022-02-22 11:06 Normal [facility] CBC with Diffon 09-23-2021 Abs. Basophil 0.02 k/uL Normal 0.0-0.2 [facility] Comment on above: Performed By: #### C JESSICA, CP, IPF ####[facility] [address] [place] [address] Lab Director: Michael Meyer MD Abs.Imm.Granulocyte 0.02 k/uL Normal 0.00-0.30 [facility] Comment on above: Performed By: #### C JESSICA CP, IPF ####[facility] [place] [address] Lab Director: Michael Meyer MD Abs.Neutrophil (Seg) 1.28 k/uL Low 1.50-8.10 [facility] Comment on above: Performed By: #### C ELOY LOPEZ, IPF ####[address] , [place] [address])[phone] Director: Michael Meyer MD Basophils/100 WBC (Bld) 1 % Normal 0-2 [facility] Comment on above: Performed By: #### C JESSICA CP, IPF ####[address] , [place] [address])[phone] Director: Michael Meyer MD Eosinophils (Bld) [#/Vol] 0.00 10*3/uL Normal 0.00-0.44 [facility] Comment on above: Performed By: #### C ELOY LOPEZ, IPF ####[address] , [place] [address])[phone] Director: Michael Meyer MD Eosinophils/100 WBC (Bld) 0 % Low 1-4 [facility] Comment on above: Performed By: #### C ELOY LOPEZ, IPF ####[address] , [facility]83[facility])[phone] Director: Michael Meyer MD Immature granulocytes/100 WBC (Bld) 1 % High 0 [facility] Comment on above: Performed By: #### C ELOY LOPEZ, IPF ####[address] , [facility]83[facility])[phone] Director: Michael Meyer MD Lymphocytes (Bld) [#/Vol] 0.73 10*3/uL Low 1.10-3.70 [facility] Comment on above: Performed By: #### C ELOY LOPEZ, IPF ####[address] [place] [address]([facility])[phone] Director: Michael Meyer MD Lymphocytes/100 WBC (Bld) 33 % Normal 24-43 [facility] Comment on above: Performed By: #### C DP, CP, IPF ####[address] [place] [address] Lab Director: Michael Meyer MD Monocytes (Bld) [#/Vol] 0.15 10*3/uL Normal 0.10-1.20 [facility] Comment on above: Performed By: #### C DP, CP, IPF ####[address] [place] [address] Lab Director: Michael Meyer MD Monocytes/100 WBC (Bld) 7 % Normal 3-12 [facility] Comment on above: Performed By: #### C DP, CP, IPF ####[address] [place] [address] Lab Director: Michael Meyer MD Morphology Fernando (Bld) [Interp] Platelet scan shows Normal Platelets Normal [facility] Comment on above: Performed By: #### C DP, CP, IPF ####[address] [place] [address] Lab Director: Michael Meyer MD Neutrophil (Seg) 58 % Normal 36-65 [facility] Comment on above: Performed By: #### C DP, CP, IPF ####[address] [place] [address] Lab Director: Michael Meyer MD Erythrocyte distribution width (RBC) [Ratio] 11.2 % Low 11.8-14.4 [facility] Comment on above: Performed By: #### C DP, CP, IPF ####[address] [place] [address] Lab Director: Michael Meyer MD Hematocrit (Bld) [Volume fraction] 46.3 % Normal 40.7-50.3 [facility] Comment on above: Performed By: #### C DP, CP, IPF ####[address] , [place] 229[address]83 lab Director: Michael Meyer MD Hemoglobin (Bld) [Mass/Vol] 15.6 g/dL Normal 13.0-17.0 [facility] Comment on above: Performed By: #### C DP, CP, IPF ####[address] , [place] 9666883 lab Director: Michael Meyer MD MCH (RBC) [Entitic mass] 28.5 pg Normal 25.2-33.5 [facility] Comment on above: Performed By: #### C DP, CP, IPF ####[address] , [place] 63[address]383 lab Director: Michael Meyer MD MCHC (RBC) [Mass/Vol] 33.7 g/dL Normal 28.4-34.8 [facility] Comment on above: Performed By: #### C DP, CP, IPF ####[address] , [place] 730[address]83 lab Director: Michael Meyer MD MCV (RBC) [Entitic vol] 84.6 fL Normal 82.6-102.9 [facility] Comment on above: Performed By: #### C DP, CP, IPF ####[address] , [place] [phone] lab Director: Michael Meyer MD NRBC Automated 0.0 per 100 WBC Normal 0.0 [facility] Comment on above: Performed By: #### C DP, CP, IPF ####[address] , [place] 5808783 lab Director: Michael Meyer MD Platelet Count See Reflexed IPF Result Normal 138-453 [facility] Comment on above: Performed By: #### C DP, CP, IPF ####[address] , [place] 516[address]83 lab Director: Michael Meyer MD RBC (Bld) [#/Vol] 5.47 10*6/uL Normal 4.21-5.77 [facility] Comment on above: Performed By: #### C DP, CP, IPF ####[address] [place] [address] Lab Director: Michael Meyer MD WBC (Bld) [#/Vol] 2.2 10*3/uL Low 3.5-11.3 [facility] Comment on above: Performed By: #### C DP, CP, IPF ####[address] [place] [address] Lab Director: Michael Meyer MD Auto Diff Performed NOT REPORTED Normal [facility] [place] Comment on above: Performed By: #### C DP, CP, IPF ####[address] , [facility]83[facility])[phone] Director: Michael Meyer MD MPV NOT REPORTED Normal 8.1-13.5 [facility] Comment on above: Performed By: #### C DP, CP, IPF ####[address] , [place] [phone])[phone] Director: Michael Meyer MD Platelet Comment NOT REPORTED Normal [facility] Comment on above: Performed By: #### C DP, CP, IPF ####[address] , [place] [phone] Director: Michael Meyer MD RBC morphology finding Nom (d) NOT REPORTED Normal [facility] Comment on above: Performed By: #### C DP, CP, IPF ####[address] [place] [address] Lab Director: Michael Meyer MD WBC Morphology NOT REPORTED Normal [facility] Comment on above: Performed By: #### C DP, CP, IPF ####[address] [place] [address] Lab Director: Michael Meyer MD Comp Metabolic Profon 2020 (cont.) Normal [facility] Comment on above: Result Comment: Aver age GFR for 40-49 years old: 99 mL/min/1.73sq m Chronic Kidney Disease: <60 mL/min/1.73sq m Kidney failure: <15 mL/min/1.73sq m eGFR calculated using average adult body mass. Additional eGFR calculator available at: http://www.[employer]/multiple_crcl_2012.htm Performed By: #### C DP, CP, IPF ####[address] [place] [address] Lab Director: Michael Meyer MD Albumin [Mass/Vol] 4.1 g/dL Normal 3.5-5.2 [facility] Comment on above: Performed By: #### C DP, CP, IPF ####[address] , [place] 9098783 Lab Director: Michael Meyer MD Albumin/Glob Ratio 1.1 Normal 1.0-2.5 [facility] Comment on above: Performed By: #### C DP, CP, IPF ####[address] , [place] 1936283 Lab Director: Michael Meyer MD Alkaline Phos 87 U/L Normal 40-129 [facility] Comment on above: Performed By: #### C DP, CP, IPF ####[address] , [place] 958[address]83 Lab Director: Michael Meyer MD ALT [Catalytic activity/Vol] 65 U/L High 5-41 [facility] Comment on above: Performed By: #### C DP, CP, IPF ####[address] [place] [address] Lab Director: Michael Meyer MD Anion gap [Moles/Vol] 13 mmol/L Normal 9-17 [facility] [place] Comment on above: Performed By: #### C DP, CP, IPF ####[address] , [place] 1665483 Lab Director: Michael Meyer MD AST [Catalytic activity/Vol] 68 U/L High <40 [facility] Comment on above: Performed By: #### C DP, CP, IPF ####[address] , [place] 4437083 lab Director: Michael Meyer MD Bilirubin [Mass/Vol] 0.52 mg/dL Normal 0.3-1.2 [facility] Comment on above: Performed By: #### C DP, CP, IPF ####[address] , [place] 2561583 lab Director: Michael Meyer MD BUN/CRE Ratio 8 Low 9-20 [facility] Comment on above: Performed By: #### C JESSICA, CP, IPF ####[address] , [place] 1730883 lab Director: Michael Meyer MD Calcium [Mass/Vol] 8.8 mg/dL Normal 8.6-10.4 [facility] Comment on above: Performed By: #### C DP, CP, IPF ####[address] , [place] 4788283 lab Director: Michael Meyer MD Chloride [Moles/Vol] 100 mmol/L Normal 98-107 [facility] Comment on above: Performed By: #### C DP, CP, IPF ####[address] , [place] 86[address]83 lab Director: Michael Meyer MD CO2 [Moles/Vol] 23 mmol/L Normal 20-31 [facility] Comment on above: Performed By: #### C DP, CP, IPF ####[address] [place] [address] Lab Director: Michael Meyer MD Creatinine [Mass/Vol] 1.55 mg/dL High 0.70-1.20 [facility] [place] Comment on above: Performed By: #### C DP, CP, IPF ####[address] , [place] 7260883 Lab Director: Michael Meyer MD GFR, Amer >60 Normal >60 [facility] Comment on above: Performed By: #### C DP, CP, IPF ####[address] [place] [address] Lab Director: Michael Meyer MD GFR,non Amer 50 mL/min Low >60 [facility] Comment on above: Performed By: #### C DP, CP, IPF ####[address] [place] [address] Lab Director: Michael Meyer MD Glucose [Mass/Vol] 94 mg/dL Normal 70-99 [facility] Comment on above: Performed By: #### C DP, CP, IPF ####[address] , [place] 2035083 Lab Director: Michael Meyer MD Potassium [Moles/Vol] 3.9 mmol/L Normal 3.7-5.3 [facility] Comment on above: Performed By: #### C DP, CP, IPF ####[address] [place] [address] Lab Director: Michael Meyer MD Protein [Mass/Vol] 7.9 g/dL Normal 6.4-8.3 [facility] Comment on above: Performed By: #### C DP, CP, IPF ####[address] , [place] 1466283 Lab Director: Michael Meyer MD Sodium [Moles/Vol] 136 mmol/L Normal 135-144 [facility] Comment on above: Performed By: #### C ELOY LOPEZ, IPF ####[address] [place] [address] Lab Director: Michael Meyer MD Staging: Normal [facility] Comment on above: Result Comment: Stag e 1: Some kidney damage normal GFR Stage 2: Mild kidney damage GFR 60-89 Stage 3: Moderate kidney damage GFR 30-59 Stage 4: Severe kidney damage GFR 15-29 Stage 5: Severe kidney damage GFR <15 ESRD - chronic treatment by dialysis or transplant Performed By: #### C ELOY LOPEZ, IPF ####[address] [place] [address] lab Director: Michael Meyer MD Urea nitrogen [Mass/Vol] 13 mg/dL Normal 6-20 [facility] Comment on above: Performed By: #### C ELOY LOPEZ, IPF ####[address] , [place] 9047983 Lab Director: Michael Meyer MD Lactic Acidon 09-23-2021 Lactate [Moles/Vol] 0.9 mmol/L Normal 0.5-2.2 [facility] Comment on above: Performed By: #### L ACTIC ####[address] , [place] 8707383 lab Director: Michael Meyer MD Lactic Acid,Whole Bl NOT REPORTED Normal 0.7-2.1 [facility] Comment on above: Performed By: #### L ACTIC ####[address] [place] [address] Lab Director: Michael Meyer MD PLT, Immature Fract.on 09-23 Platelet, Fluoresc. 42 k/uL Low 138-453 [facility] Comment on above: Performed By: #### C ELOY LOPEZ, IPF #### [address] [place] [address] Supervisor Floor Assembly: Michael Meyer MD PLT, Immature Fract. 1.2 % Normal 1.1-10.3 [facility] Comment on above: Performed By: #### C DP, CP, IPF #### [facility] [address] [place] [address] [place] [address] Supervisor Floor Assembly: Michael Meyer MD XR CHEST (SINGLE VIEW [...] by: Will Calderón 09/22/21 Final result Normal [facility] Resp Viral Panelon Adenovirus Not detected Normal [facility] Comment on above: Performed By: #### R SLABBER LIGHT ####[facility] [address] [place] [address] Lab Director: Juan R Tang[address] [place] [address] Lab Director: Michael Meyer MD Bordet.parapertussis Not detected Normal [facility] Comment on above: Performed By: #### R SLABBER LIGHT ####[facility] [address] [place] [address] Lab Director: Juan R Tang[address] [place], [place] [address] Lab Director: Michael Meyer MD Bordetella pertussis Not detected Normal [facility] Comment on above: Performed By: #### R SLABBER LIGHT ####[facility] [address] [place] [address] Lab Director: Juan R [address] [place] [address] Lab Director: Michael Meyer MD Chlamyd.pneumoniae Not detected Normal [facility] Comment on above: Performed By: #### R SLABBER LIGHT ####[facility] [address] [place] [address] Lab Director: Juan R [address] [place] [address] Lab Director: Michael Meyer MD Coronavirus 229E Not detected [facility] Comment on above: Performed By: #### R SLABBER LIGHT ####[place] [address] [place], [place] [phone])[phone] Director: Juan R [address] [place] [address] Lab Director: Michael Meyer MD Coronavirus HKU1 Not detected [facility] Comment on above: Performed By: #### R SLABBER LIGHT ####[address] [place] [address] Lab Director: Juan R [address] [place] [address] Lab Director: Michael Meyer MD Coronavirus NL63 Not detected [facility] Comment on above: Performed By: #### R SLABBER LIGHT ####[facility] [address] [place] [address] Lab Director: Juan R [address] [place] [address] Lab Director: Michael Meyer MD Coronavirus OC43 Not detected [facility] Comment on above: Performed By: #### R SLABBER LIGHT ####[facility] [address] [place], [place] [phone] Director: Juan R [address] [place] [address] Lab Director: Michael Meyer MD Human Metapneumo Not detected [facility] Comment on above: Performed By: #### R SLABBER LIGHT ####[facility] [address] [place], [place] [phone])[phone] Director: [address] [place] [address] Lab Director: Michael Meyer MD Influenza A Not detected [facility] Comment on above: Performed By: #### R SLABBER LIGHT ####[facility] [address] [phone])[phone] Director: Juan R [address] [place] [address] Lab Director: Michael Meyer MD Influenza B Not detected [facility] Comment on above: Performed By: #### R SLABBER LIGHT ####[address] [phone])[phone] Director: Juan R [address] [place] [address] Lab Director: Michael Meyer MD Mycoplas.pneumoniae Not detected Normal [facility] Comment on above: Result Comment: Perf ormed by multiplexed nucleic acid assay. Performed By: #### R SLABBER LIGHT ####[facility] [address] [place], [place] [phone])[phone] Director: Juan R [address] [place] [address] Lab Director: Michael Meyer MD Parainfluenza 1 Not detected Normal [facility] Comment on above: Performed By: #### R SLABBER LIGHT ####[facility] [address] [place] [address] Lab Director: Juan R [address] [place] [phone] Director: Michael Meyer MD Parainfluenza 2 Not detected [facility] Comment on above: Performed By: #### R SLABBER LIGHT ####[facility] [address] [place] [address] Lab Director: Juan R [address] [place] [address] Lab Director: Michael Meyer MD Parainfluenza 3 Not detected [facility] Comment on above: Performed By: #### R SLABBER LIGHT ####[address] [address] Lab Director: Juan R [address] [place] [address] Lab Director: Michael Meyer MD Parainfluenza 4 Not detected [facility] Comment on above: Performed By: #### R SLABBER LIGHT ####[facility] [place] [address] Lab Director: Juan R [address] [place] [address] Lab Director: Michael Meyer MD Resp Syncytial Virus Not detected Normal [facility] Comment on above: Performed By: #### R SLABBER LIGHT ####[facility] [address] [place] [address] Lab Director: Juan R [facility] [place] [address] Lab Director: Michael Meyer MD Rhino/Enterovirus Not detected [facility] Comment on above: Performed By: #### R SLABBER LIGHT ####[address] [place], [place] [phone])[phone] Director: Juan R [address] [place] [address] Lab Director: Michael Meyer MD SARS-CoV-2 (COVID-19) RNA LYNDON+probe Ql (Unsp spec) Detected Abnormal [facility] Comment on above: Result Comment: Resu lts reported to the appropriate Health Department Performed By: #### R SLABBER LIGHT ####[address] [phone])[phone] Director: Juan R [address] [place] [address] Lab Director: Michael Meyer MD Resp Viral Panelon 1 Source: .NASOPHARYNGEAL SWAB Normal [facility] Comment on above: Performed By: #### R SLABBER LIGHT ####[address] [phone] Director: Juan R [address] [place] [address] Lab Director: Michael Meyer MD Influenza A H1 NOT REPORTED Normal [facility] Comment on above: Performed By: #### R SLABBER LIGHT ####[address] [id number])[phone] Director: Juan R Tang [address] [place] [address] Lab Director: Michael Meyer MD Influenza A H1-2009 NOT REPORTED Normal [facility] Comment on above: Performed By: #### R SLABBER LIGHT ####[address] [phone])[phone] Director: Juan R [address] [place] [address] Lab Director: Michael Meyer MD Influenza A H3 NOT REPORTED Normal [facility] Comment on above: Performed By: #### R SLABBER LIGHT ####[facility] [address] [place] [address] lab Director: Juan R Tang, [facility] [address] [place] [address] lab Director: Michael Meyer MD No Panel Informationon 09-13 No acute findings. [facility] EXAMINATION: THREE XRAY VIEWS OF THE RIGHT ANKLE; THREE XRAY VIEWS OF THE LEFT FOOT 09/13/2021 9:16 am COMPARISON: None. HISTORY: ORDERING SYSTEM PROVIDED HISTORY: Pain TECHNOLOGIST PROVIDED HISTORY: Pain FINDINGS: No acute fracture demonstrated. 2 threaded screws noted medial malleolus from repair prior injury. Alignment anatomic. Small plantar and dorsal calcaneal spurs present. Cinz-mg-wmniwtqb degenerative change primarily midfoot. Overall alignment anatomic. Soft tissues unremarkable. [facility] Jeronimo Art DO - 09/13/2021 EXAMINATION: THREE XRAY VIEWS OF THE RIGHT ANKLE; THREE XRAY VIEWS OF THE LEFT FOOT 09/13/2021 9:16 am COMPARISON: None. HISTORY: ORDERING SYSTEM PROVIDED HISTORY: Pain TECHNOLOGIST PROVIDED HISTORY: Pain FINDINGS: No acute fracture demonstrated. 2 threaded screws noted medial malleolus from repair prior injury. Alignment anatomic. Small plantar and dorsal calcaneal spurs present. Fqsw-rw-cortgddh degenerative change primarily midfoot. Overall alignment anatomic. Soft tissues unremarkable. IMPRESSION: No acute findings. [facility] Work Phone: [facility] Work Phone: No acute findings. [facility] EXAMINATION: THREE XRAY VIEWS OF THE RIGHT FOOT; THREE XRAY VIEWS OF THE LEFT ANKLE 09/13/2021 9:14 am COMPARISON: None. HISTORY: ORDERING SYSTEM PROVIDED HISTORY: pain TECHNOLOGIST PROVIDED HISTORY: pain FINDINGS: No acute fracture demonstrated. Alignment is anatomic. 2 threaded screws noted within the medial malleolus. Oxco-ip-lohncdjl degenerative change primarily midfoot. Small plantar and [...] threaded screws noted within the medial malleolus. Wjfi-yz-kwxxttfx degenerative change primarily midfoot. Small plantar and dorsal calcaneal spurs present. Soft tissues unremarkable. IMPRESSION: No acute findings. [employer] Phone: No Panel InformationOrdered By: Jeronimo Art on 09-13-2021 [employer] Phone: XR ANKLE LEFT (MIN 3 VIEWS)o n 09-13-2021 XR ANKLE LEFT (MIN 3 VIEWS) EXAMINATION: THREE XRAY VIEWS OF THE RIGHT FOOT; THREE XRAY VIEWS OF THE LEFT ANKLE 09/13/2021 9:14 am COMPARISON: None. HISTORY: ORDERING SYSTEM PROVIDED HISTORY: pain TECHNOLOGIST PROVIDED HISTORY: pain FINDINGS: No acute fracture demonstrated. Alignment is anatomic. 2 threaded screws noted within the medial malleolus. Qihj-nj-mdhbwtoa degenerative change primarily midfoot. Small plantar and dorsal calcaneal spurs present. Soft tissues unremarkable. IMPRESSION: No acute findings. Interpreted by: Jeronimo Art DO Signed by: Jeronimo Art DO 09/13/21 Final result Normal [facility] Radiology Study observation (narrative) [employer] Phone: XR ANKLE RIGHT (MIN 3 VIEWS) [...] Small plantar and dorsal calcaneal spurs present. Yotm-cz-tymtriwk degenerative change primarily midfoot. Overall alignment anatomic. Soft tissues unremarkable. IMPRESSION: No acute findings. Interpreted by: Jeronimo Art DO Signed by: Jeronimo Art DO 09/13/21 Final result Normal [facility] [facility] Radiology Study observation (narrative) [employer] Phone: XR FOOT LEFT (MIN 3 VIEWS)on [...] Small plantar and dorsal calcaneal spurs present. [id number] degenerative change primarily midfoot. Overall alignment anatomic. Soft tissues unremarkable. IMPRESSION: No acute findings. Interpreted by: Jeronimo Art DO Signed by: Jeronimo Art DO 09/13/21 Final result Normal [facility] Radiology Study observation (narrative) [employer] Phone: XR FOOT RIGHT (MIN 3 VIEWS)o n 09-13-2021 XR FOOT RIGHT (MIN 3 VIEWS) EXAMINATION: THREE XRAY VIEWS OF THE RIGHT FOOT; THREE XRAY VIEWS OF THE LEFT ANKLE 09/13/2021 9:14 am COMPARISON: None. HISTORY: ORDERING SYSTEM PROVIDED HISTORY: pain TECHNOLOGIST PROVIDED HISTORY: pain FINDINGS: No acute fracture demonstrated. Alignment is anatomic. 2 threaded screws noted within the medial malleolus. [id number] degenerative change primarily midfoot. Small plantar and dorsal calcaneal spurs present. Soft tissues unremarkable. IMPRESSION: No acute findings. Interpreted by: Jeronimo Art DO Signed by: Jeronimo Art DO 09/13/21 Final result Normal [facility] Radiology Study observation (narrative) [employer] Phone: XR ABDOMEN (KUB) (SINGLE AP VIEW)on [...] Kerri Scott MD 05/08/21 Final result Normal [facility] XR ABDOMEN (KUB) (SINGLE AP VIEW)Ordered By: Quincy Interiano on 05-08-2021 Nonobstructive bowel gas pattern. No radiodensities diagnostic of nephroliths. [employer] Phone: EXAMINATION: ONE SUPINE XRAY VIEW(S) OF THE ABDOMEN 05/08/2021 10:35 am COMPARISON: 01 May 2021 HISTORY: ORDERING SYSTEM PROVIDED HISTORY: Microscopic hematuria FINDINGS: The bowel gas pattern is non obstructive. No organomegaly, free air or abnormal calcifications are noted. Mild levo scoliotic curvature is present. [facility] Phone: Luther, pn Incoming Radiant Results From MeMed/4Less - 05/08/2021 2:06 PM EDT EXAMINATION: ONE SUPINE XRAY VIEW(S) OF THE ABDOMEN 05/08/2021 10:35 am COMPARISON: 01 May 2021 HISTORY: ORDERING SYSTEM PROVIDED HISTORY: Microscopic hematuria FINDINGS: The bowel gas pattern is non obstructive. No organomegaly, free air or abnormal calcifications are noted. Mild levo scoliotic curvature is present. IMPRESSION: Nonobstructive bowel gas pattern. No radiodensities diagnostic of nephroliths. [employer] Phone: TopOPPS Phone: No Panel InformationOrdered By: Fatuma Sanchez on 05-01-2021 1. No acute osseous abnormality of the right ankle. Posttraumatic and postsurgical changes as above. Mild tibiotalar joint osteoarthritis. 2. Acute osseous abnormality of the right foot. Chronic appearing well-defined erosion or subchondral cyst at the base of the 3rd metatarsal without associated joint space loss. This is a nonspecific finding. [employer] Phone: EXAMINATION: THREE XRAY VIEWS OF THE [...] base of the 3rd metatarsal is nonspecific. [employer] Phone: Luther, pn Incoming Radiant Results From BlazeMeter - 05/01/2021 5:46 PM EDT EXAMINATION: THREE [...] space loss. This is a nonspecific finding. [employer] Phone: [employer] Phone: Unremarkable left wrist/left hand series. There are no plain radiographic findings to suggest an active synovial process of bone as rheumatoid arthritis [employer] Phone: EXAMINATION: 2 XRAY VIEWS OF THE LEFT WRIST; TWO XRAY VIEWS OF THE LEFT HAND 05/01/2021 11:10 am COMPARISON: None. HISTORY: ORDERING SYSTEM PROVIDED HISTORY: Seropositive rheumatoid arthritis (HCC) FINDINGS: The bones and joints are unremarkable without definite fracture, dislocation, significant degenerative/erosive change, radiopaque foreign body, abnormal soft tissue calcification or bony destructive lesion [employer] Phone: Luther, pn Incoming Radiant Results From MeMed/4Less - 05/01/2021 11:26 AM EDT EXAMINATION: 2 [...] synovial process of bone as rheumatoid arthritis [employer] Phone: TopOPPS Phone: XR ABDOMEN (KUB) (SINGLE AP VIEW)on [...] Linda Albarran MD 05/01/21 Final result Normal [facility] XR ABDOMEN (KUB) (SINGLE AP VIEW)Ordered By: Quincy Interiano on 05-01-2021 No significant radiographic abnormality in the abdomen. [employer] Phone: EXAMINATION: ONE SUPINE XRAY VIEW(S) OF THE ABDOMEN 05/01/2021 10:51 am COMPARISON: None. HISTORY: ORDERING SYSTEM PROVIDED HISTORY: Pain FINDINGS: Nonobstructive bowel gas pattern. No abnormal calcifications overlying the gallbladder urinary tract. No mass effect. Osseous structures grossly intact. [employer] Phone: Luther, pn Incoming Radiant Results From BlazeMeter - 05/01/2021 11:21 AM EDT EXAMINATION: ONE SUPINE XRAY VIEW(S) OF THE ABDOMEN 05/01/2021 10:51 am COMPARISON: None. HISTORY: ORDERING SYSTEM PROVIDED HISTORY: Pain FINDINGS: Nonobstructive bowel gas pattern. No abnormal calcifications overlying the gallbladder urinary tract. No mass effect. Osseous structures grossly intact. IMPRESSION: No significant radiographic abnormality in the abdomen. [employer] Phone: [employer]PS Phone: XR ANKLE LEFT (MIN 3 VIEWS)o [...] Clarissa Gomez MD 05/01/21 Final result Normal [facility] XR ANKLE LEFT (MIN 3 VIEWS)O rdered By: Fatuma Sanchez on 05-01-2021 Moderate calcaneal spurring [employer] Phone: EXAMINATION: THREE XRAY VIEWS OF THE LEFT ANKLE 05/01/2021 11:12 am COMPARISON: None. HISTORY: ORDERING SYSTEM PROVIDED HISTORY: Seropositive rheumatoid arthritis (HCC) FINDINGS: There is moderate spurring of the superior aspect of the os calcis. The bones and joints are otherwise unremarkable without definite effusion, acute fracture, dislocation radiopaque foreign body or bony destructive lesion [employer] Phone: Luther, Mhpn Incoming Radiant Results From LOGIC [employer]ICESs - 05/01/2021 11:21 AM EDT EXAMINATION: THREE [...] bony destructive lesion IMPRESSION: Moderate calcaneal spurring [employer] Phone: TopOPPS Phone: XR ANKLE RIGHT (MIN 3 VIEWS) [...] Michael Caceres MD 05/01/21 Final result Normal [facility] XR FOOT LEFT (2 VIEWS)on [...] Clarissa Gomez MD 05/01/21 Final result Normal [facility] XR FOOT LEFT (2 VIEWS)Ordere d By: Fatuma Sanchez on 05-01-2021 Mild degenerative changes There are no plain radiographic findings to suggest an active synovial process of bone as rheumatoid arthritis [employer] Phone: EXAMINATION: TWO XRA Y VIEWS OF [...] radiopaque foreign body or bony destructive lesion [employer] Phone: Luther, Mhpn Incoming Radiant Results From MeMed/4Less - 05/01/2021 11:29 AM EDT EXAMINATION: TWO [...] synovial process of bone as rheumatoid arthritis [employer] Work Phone: [facility] Work Phone: XR FOOT RIGHT (2 VIEWS)on [...] Michael Caceres MD 05/01/21 Final result Normal [facility] XR HAND LEFT (2 VIEWS)on [...] Clarissa Gomez MD 05/01/21 Final result Normal [facility] XR HAND RIGHT (2 VIEWS)on [...] Clarissa Gomez MD 05/01/21 Final result Normal [facility] XR HAND RIGHT (2 VIEWS)Order ed By: Fatuma Sanchez on 05-01-2021 Unremarkable two-vie w right hand series. There are no definite plain radiographic findings to suggest an active synovial process of bone as rheumatoid arthritis [employer] Phone: EXAMINATION: TWO XRA Y VIEWS OF THE RIGHT HAND 05/01/2021 11:12 am COMPARISON: None. HISTORY: ORDERING SYSTEM PROVIDED HISTORY: Seropositive rheumatoid arthritis (HCC) FINDINGS: The bones and joints are unremarkable without definite fracture, dislocation, significant degenerative/erosive change, radiopaque foreign body, abnormal soft tissue calcification or bony destructive lesion [employer] Phone: Luther, [facility] Incoming Radiant Results From MeMed/4Less - 05/01/2021 11:24 AM EDT EXAMINATION: TWO [...] synovial process of bone as rheumatoid arthritis [employer] Phone: TopOPPS Phone: XR WRIST LEFT (2 VIEWS)on XR [...] Clarissa Gomez MD 05/01/21 Final result Normal [facility] XR WRIST RIGHT (2 VIEWS)on [...] Clarissa Gomez MD 05/01/21 Final result Normal [facility] XR WRIST RIGHT (2 VIEWS)Orde red By: Fatuma Sanchez on 05-01-2021 Unremarkable two-vie w right wrist series [employer] Phone: EXAMINATION: 2 XRAY VIEWS OF THE RIGHT WRIST; 05/01/2021 11:11 am COMPARISON: None. HISTORY: ORDERING SYSTEM PROVIDED HISTORY: Seropositive rheumatoid arthritis (HCC) FINDINGS: The bones and joints are unremarkable without definite fracture, dislocation, significant degenerative/erosive change, radiopaque foreign body or bony destructive lesion [employer] Phone: Luther, Mhpn Incoming Radiant Results From MeMed/4Less - 05/01/2021 11:23 AM EDT EXAMINATION: 2 XRAY VIEWS OF THE RIGHT WRIST; 05/01/2021 11:11 am COMPARISON: None. HISTORY: ORDERING SYSTEM PROVIDED HISTORY: Seropositive rheumatoid arthritis (HCC) FINDINGS: The bones and joints are unremarkable without definite fracture, dislocation, significant degenerative/erosive change, radiopaque foreign body or bony destructive lesion IMPRESSION: Unremarkable two-view right wrist series [facility] Phone: TopOPPS Phone: XR WRIST RIGHT (MIN 3 VIEWS) [...] Ebenezer Pepe MD 03/01/21 Final result Normal [facility] XR WRIST RIGHT (MIN 3 VIEWS) Ordered By: Apryl Tucker on 03-01-2021 Unremarkable right wrist. [employer] Phone: EXAMINATION: 3 XRAY VIEWS OF THE [...] degenerative findings. No appreciable soft tissue abnormality. [employer]OP[facility] Phone: Luther, Mhpn Incoming Radiant Results From MeMed/4Less - 03/01/2021 7:52 PM EDT EXAMINATION: 3 XRAY VIEWS OF THE RIGHT WRIST 03/01/2021 6:30 pm COMPARISON: None. HISTORY: ORDERING SYSTEM PROVIDED HISTORY: right wrist pain after lifting hay lan TECHNOLOGIST PROVIDED HISTORY: right wrist pain after lifting hay aln FINDINGS: Frontal, lateral, and oblique view radiographs of the right wrist were obtained. Bone mineralization is normal. The osseous structures are intact without acute fracture or destructive abnormality. Carpal joint relationships are maintained. No significant degenerative findings. No appreciable soft tissue abnormality. IMPRESSION: Unremarkable right wrist. [facility] Work Phone: [facility] Work Phone: XR KNEE RIGHT (1-2 VIEWS)on [...] CNP - (authorizing provider) Final result Normal [facility] XR KNEE RIGHT (3 VIEWS)on Joint effusion witho ut acute osseous abnormality. [place], [place] EXAMINATION: THREE XRAY VIEWS OF THE [...] effusion. The periarticular soft tissues are unremarkable. [place], [place] Luther, Mhpn Incoming Radiant Results From MeMed/Kindermints - 09/04/2019 6:08 PM EST EXAMINATION: THREE [...] IMPRESSION: Joint effusion without acute [facility]seous abnormality. [facility] (MIN [facility] VIEWS)on 05-12-2019 No acute osseous abnormality. [facility] EXAM[facility]ATION: THREE XRAY VIEWS OF THE LEFT HAND 05/12/2019 12:22 pm COMPARISON: November 12, 2018 HISTORY: ORDERING SYSTEM PROVIDED HISTORY: pain TECHNOLOGIST PROVIDED HISTORY: pain FINDINGS: There is no evidence of acute fracture. There is normal alignment. No acute joint abnormality. No focal osseous lesion. No focal soft tissue abnormality. [facility] Luther, Mhpn Incoming Radiant Results From weeSPINe/Kindermints - 05/12/2019 12:48 PM EDT EXAMINATION: THREE XRAY VIEWS OF THE LEFT HAND 05/12/2019 12:22 pm COMPARISON: November 12, 2018 HISTORY: ORDERING SYSTEM PROVIDED HISTORY: pain TECHNOLOGIST PROVIDED HISTORY: pain FINDINGS: There is no evidence of acute fracture. There is normal alignment. No acute joint abnormality. No focal osseous lesion. No focal soft tissue abnormality. IMPRESSION: No acute osseous abnormality. [facility] [place] MRI BRAIN WO CONTRASTon 04-03 MRI BRAIN [...] MD 04/24/19 Final result Normal [facility] MRI CERVICAL SPINE WO CONTRA STon [...] MD 04/24/19 Final result Normal [facility] Vital Signs Date Time Vital Sign Value Performing Clinician Robson henry 05-15-2024 14:12-0400 Blood Pressure Location [employer]elks [facility] 05-15-2024 14:12-0400 Diastolic blood pressure 76 mm[Hg] David MemeoirsL [facility] 05-15-2024 14:12-0400 Heart rate 76 /min [employer] [facility] 05-15-2024 14:12-0400 Respiratory rate 16 /min David MemeoirsL [facility] 05-15-2024 14:12-0400 Systolic blood pressure 118 mm[Hg] David MemeoirsL [facility] 09-13-2021 08:22-0500 Diastolic blood pressure 86 mm[Hg] Francis Marleyjeremy DO Work Phone: [employer] 09-13-2021 08:22-0500 Systolic blood pressure 147 mm[Hg] Francis Beachrov DO Work Phone: [employer] 09-13-2021 08:20-0500 Body mass index (BMI) [Ratio] 37.2 kg/m2 Francis Beachrov DO Work Phone: [employer] 09-13-2021 08:20-0500 Body temperature 97.39 [degF] Francis Beachrov DO Work Phone: [employer] 09-13-2021 08:20-0500 Body weight 95.25 kg Francis Beachrov DO Work Phone: [employer] 09-13-2021 08:20-0500 Heart rate 85 /min Francis Beachrov DO Work Phone: [employer] 09-13-2021 08:20-0500 Respiratory rate 16 /min Francis Pinto DO Work Phone: [employer] 09-13-2021 08:20-0500 SaO2% (BldA) [Mass fraction] 99 % Francis Beachrojeremy DO Work Phone: [employer] 03-01-2021 18:28-0400 Diastolic blood pressure 96 mm[Hg] [employer] Work Phone: [employer] Work Phone: 03-01-2021 18:28-0400 Systolic blood pressure 151 mm[Hg] Clari Mikala Work Phone: [employer] Work Phone: 03-01-2021 18:26-0400 Body temperature 98.71 [degF] [employer] Work Phone: [employer] Work Phone: 03-01-2021 18:26-0400 Heart rate 70 /min [employer] Work Phone: [employer] Work Phone: 03-01-2021 18:26-0400 Respiratory rate 18 /min Clari Glasgowhmann Work Phone: [employer] Work Phone: 03-01-2021 18:26-0400 SaO2% (BldA) [Mass fraction] 98 % Clari Glasgowhmann Work Phone: [employer] Work Phone: 09-06-2019 20:00-0500 Body Temperature 97.9 [degF] Oscar Clavis [employer] [facility], [place] 09-06-2019 20:00-0500 BP Diastolic 100 mm[Hg] Oscar [employer] [facility] , [place] 09-06-2019 20:00-0500 BP Systolic 154 mm[Hg] Oscar Claytonimes POKKT [facility] , [place] 09-06-2019 20:00-0500 Pulse (Heart Rate) 89 /min [facility] [place] 09-06-2019 20:00-0500 Pulse Oximetry 97 % Oscar [employer] [facility] , [place] 09-06-2019 20:00-0500 Respiratory Rate 19 /min Oscar ClaytonArchy [facility], [place] 09-04-2019 17:38-0500 BMI (Body Mass Index) 36.49 kg/m2 David Huitronpatrick [facility], [place] 09-04-2019 17:38-0500 Body Temperature 98.2 [degF] David Perez [email or web address], [place] 09-04-2019 17:38-0500 Body weight 93.44 kg David Huitronpatrick [facility] 09-04-2019 17:38-0500 BP Diastolic 94 mm[Hg] David Perez [facility] 09-04-2019 17:38-0500 BP Systolic 142 mm[Hg] David Palmerk [facility], [place] 09-04-2019 17:38-0500 Pulse (Heart Rate) 87 /min David Carter [facility], [place] 09-04-2019 17:38-0500 Pulse Oximetry 99 % David Perez [facility], [place] 09-04-2019 17:38-0500 Respiratory Rate 14 /min David Carter [facility], [place] 05-12-2019 12:15-0400 Body Temperature 98.01 [degF] Clari Dumont [facility] [place] 05-12-2019 12:14-0400 BP Diastolic 85 mm[Hg] [facility] [place] 05-12-2019 12:14-0400 BP Systolic 152 mm[Hg] [facility] [place] 05-12-2019 12:14-0400 Pulse (Heart Rate) 87 /min [facility] [place] 05-12-2019 12:14-0400 Pulse Oximetry 96 % Clari Dumont [facility] , [place] 05-12-2019 12:14-0400 Respiratory Rate 16 /min [facility] [place] Encounters Encounter Date Encounter Type Care Provider Facility Start: 10-22-2024 End: 10-22-2024 ambulatory Lee Maradiaga MD Facility: [facility] Start: 10-15-2024 End: 10-15-2024 ambulatory Lee Maradiaga MD Facility: [facility] Start: 07-18-2024 End: 07-18-2024 Mitchell Gonzalez WIRE CHIEF Work Phone: [facility] Start: 07-18-2024 End: 07-18-2024 Bamboo flowsnabil Gonzalez WIRE CHIEF Work Phone: [facility] Start: 07-18-2024 End: 07-18-2024 Office outpatient visit 25 minutes Ruth Ann Gonzalez WIRE CHIEF Work Phone: [facility] Comment on above: Low back pain, unspe cified back pain laterality, unspecified chronicity, unspecified whether sciatica present (Primary Dx); Bilateral sciatica Start: 07-18-2024 End: 07-18-2024 ambulatory RUTH ANN B APLING Not Available Start: 05-15-2024 End: 05-15-2024 ambulatory ISABELLA KAPLAN Facility: [place] Start: 05-15-2024 End: 05-15-2024 Patient encounter procedure David DIAMOND [facility] Start: 01-24-2024 End: 01-24-2024 [...] Available Start: 08-22-2023 ambulatory ISABELLA KAPLAN Facility: [place] Start: 08-12-2023 [facility] Start: 07-06-2022 End: 07-07-2022 ambulatory ISABELLA KAPLAN Facility:[facility] Start: 05-21-2022 End: 05-22-2022 ambulatory ISABELLA KAPLAN Facility:[facility] Start: 03-19-2022 End: 03-27-2022 ambulatory ISABELLA KAPLAN Facility:[facility] Start: 02-22-2022 End: 02-23-[address] APRYL RIOS Facility:[facility] Start: 09-23-2021 End: 09-23-2021 Emergency department patient visit KATE OLIVIER [facility] Start: 09-21-2021 End: 09-21-2021 Emergency department patient visit CLARI DUMONT [facility] Start: 09-13-2021 End: 09-13-2021 Emergency department patient visit FRANCIS PINTO [facility] Start: 09-13-2021 End: 09-13-2021 Emergency department patient visit Francis Pinto DO Work Phone: [facility] ED Comment on above: Sprain of right foot , initial encounter (Primary Dx); Sprain of left ankle, unspecified ligament, initial encounter Start: 05-08-2021 End: 05-11-2021 ambulatory QUINCY INTERIANO [facility] Start: 05-08-2021 End: 05-10-2021 Subsequent hospital visit by physician Karoline Meek Dr Room 4 [facility] Radiology Comment on above: Microscopic hematuri a; Flank pain; Hydronephrosis with ureteral calculus Start: 05-01-2021 End: 05-04-2021 ambulatory [facility]O [facility] Start: 05-01-2021 End: 05-03-2021 Subsequent hospital visit by physician Karoline Meek Dr Room 2 [facility] Radiology Comment on above: Seropositive rheumat oid arthritis (HCC) Pain Start: 03-01-2021 End: 03-01-2021 Emergency department patient visit BRIDGEWATER Bacilio [facility] Start: 03-01-2021 End: 03-01-2021 Emergency department patient visit [facility] Work Phone: [facility] ED Comment on above: Strain of right wris t, initial encounter (Primary Dx) Start: 11-07-2020 End: 11-10-2020 ambulatory SHAHRZAD ZENG [facility] Start: 11-07-2020 End: 11-09-2020 [facility] Start: 09-06-2019 End: 09-06-2019 Emergency department patient visit Oscar Zuniga Work Phone: [facility] ED Comment on above: Sprain of collateral ligament of right knee, initial encounter (Primary Dx) Start: 09-04-2019 End: 09-04-2019 Emergency department patient visit David Perez [facility] ED Comment on above: Injury of right knee , initial encounter (Primary Dx); Effusion of right knee joint Start: 05-12-2019 End: 05-12-2019 [facility] Comment on above: Contusion of left coles nd including fingers, initial encounter (Primary Dx) Start: 04-20-2019 End: 04-20-2019 Emergency department patient visit JEAN Carter [facility] Procedures Date Procedure Procedure Detail Performing [...] (2 - Td or Tdap) [facility] Start: 11-28-2027 DTaP/Tdap/Td vaccine (2 - Td) DTaP/Tdap/Td vaccine (2 - Td) [facility] [place], [place] Start: 08-01-2024 End: 08-01-2024 Patient encounter procedure 08/01/2024 8:00 AM EDT Office Visit [facility] [address] [place] [address] Ruth Ann Gonzalez, WIRE CHIEF [address] [place] [address] [facility] Start: 07-18-2024 End: 07-18-2024 Patient encounter procedure 07/18/2024 8:45 AM EDT Office Visit [facility] [address] [facility] [address] [place] [address] Ruth Ann Gonzalez, WIRE CHIEF [address] [facility] [address] [place] [address] Low back pain, unspecified back pain laterality, unspecified chronicity, unspecified whether sciatica present (Primary Dx) [facility] Comment on above: Low back pain, unspe cified back pain laterality, unspecified chronicity, unspecified whether sciatica present (Primary Dx) Start: 11-25-2021 End: 11-25-2021 Patient encounter procedure 11/25/2021 Office Visit Rheumatology Fatuma Sanchez MD [address] [place] [id number] [facility] Start: 06-24-2021 End: 06-24-2021 Patient encounter procedure 06/24/2021 Office Visit Rheumatology Fatuma Sanchez MD [address] [place] [id number] [phone] [facility] Start: 06-03-2021 Influenza vaccination [facility] Start: 2021 Lipid panel Lipid screen [facility] Start: 06-03-2020 Influenza vaccination Flu vaccine (# 1) [place], [place] Start: 06-03-2019 Influenza vaccination Flu vaccine (# 1) [place], [place] Start: 2016 Diabetes screen Diabetes screen [facility] Start: 2000 DTaP/Tdap/Td vaccine (1 - Tdap) DTaP/Tdap/Td vaccine (1 - Tdap) [place], [place] Start: 1996 HIV screen HIV screen [place], [place] Start: 1996 HIV screening HIV screen [facility] Start: 1994 Varicella Vaccine (1 of 2 - 13+ 2-dose series) Varicella Vaccine (1 of 2 - 13+ 2-dose series) [place], [place] Start: 1993 COVID-19 Vaccine (1) COVID-19 Vaccin e (1) [facility] Start: 1992 DTaP/Tdap/Td vaccine (1 - Tdap) DTaP/Tdap/Td vaccine (1 - Tdap) [place], [place] Start: 1982 Varicella Vaccine (1 of 2 - 2-dose childhood series) Varicella Vaccine (1 of 2 - 2-dose childhood series) [facility] Start: 1981 Hepatitis C screening Hepatitis C sc reen [facility] End: 05-12-2019 Splint application Splint application Procedures STAT One Time for 1 Occurrences starting 05/12/2019 until 05/12/2019 [place], [place] Comment on above: One Time for 1 Occur rences starting 05/12/2019 until 05/12/2019 Immunizations Immunization Date Immunization Notes Care Provider [facility] 10-22-2019 influenza, injectable, quadrivalent, preservative free Ruth Ann Gonzalez NP Work Phone: [facility] 11-28-2017 tetanus toxoid, reduced diphtheria toxoid, and acellular pertussis vaccine, adsorbed Ruth Ann Gonzalez NP Work Phone: [facility] 07-14-2010 influenza virus vaccine, whole virus Clari Mikala [place], [place] NEGATED: Highlighted row has not occurred!05-11-2021 SARS-CoV-2 (COVID-19) Ad26 vaccine, recombinant David NILL [facility] Payers Date Payer Category Payer Unknown 2024 [place] [employer] [facility] [id number] 2024 Unknown [id number] 2022 Medicaid [id number] 2020 Unknown [id number] 2019 Unknown [id number] 2019 Unknown [facility] [place] [id number] xxxxxxxxx 2019-Present [address] [address] [place] [address] xxxxxxxxx 1.2.840.763406.1.13.239.2. 7.3.897638.315 1981 Unknown [id number] 2.840.1.750349.3.579.2. 175 1981 Unknown [id number] 2.840.1.364050.3.579.2. 173 1981 Unknown [id number] 2.16840.1.067347.3.579.2. 173 1981 Unknown [id number] 2.840.1.856998.3.579.2. 173 1981 Unknown [id number] 2.840.1.691270.3.579.2. 173 1981 Unknown [id number] 2.16840.1.144976.3.579.2. 173 1981 Unknown [id number] 2.16840.1.382336.3.579.2. 173 1981 Unknown [id number] 2.16840.1.060208.3.579.2. 173 1981 Unknown [id number] 2.16840.1.377951.3.579.2. 173 1981 Unknown [id number] 2.16.840.1.217768.3.579.2. 173 1981 Unknown [id number] 2.16.840.1.366111.3.579.2. 173 1981 Unknown [id number] 2.16.840.1.990626.3.579.2. 173 1981 Unknown [id number] 2.16.840.1.586692.3.579.2. 173 1981 Unknown [id number] 2.16.840.1.504097.3.579.2. 173 1981 Unknown [id number] 2.16.840.1.634448.3.579.2. 173 1981 Unknown [id number] 2.16.840.1.146657.3.579.2. 173 1981 Unknown [id number] 2.16840.1.049296.3.579.2. 173 1981 Unknown [id number] 2.16.840.1.289103.3.579.2. 173 1981 Unknown [id number] 2.16.840.1.352412.3.579.2. 173 1981 Unknown [id number] 2.16.840.1.738380.3.579.2. 173 1981 Unknown [id number] 2.16840.1.463093.3.579.2. 593 1981 Unknown [id number] 2.16.840.1.839509.3.579.2. 593 1981 Unknown [id number] 2.16.840.1.963278.3.579.2. 593 1981 Unknown [id number] 2.16.840.1.214723.3.579.2. 593 1981 Unknown [id number] 2.16.840.1.713400.3.579.2. 727 1981 Unknown [id number] 2.16.840.1.930174.3.579.2. 727 1981 Unknown [id number] 2.16.840.1.486026.3.579.2. 9 1981 Unknown [id number] 2.16.840.1.015752.3.579.2. 1259 1981 Unknown [id number] 2.16.840.1.469020.3.579.2. 9 1981 Unknown [id number] 2.16.840.1.553726.3.579.2. 1259 1981 Unknown [id number] 2.16.840.1.655448.3.579.2. 9 1981 Unknown [id number] 2.16.840.1.752929.3.579.2. 9 1981 Unknown [id number] 2.16.840.1.279692.3.579.2. 9 1981 Unknown [id number] 2.16.840.1.190537.3.579.2. 9 1981 Unknown [id number] 2.16.840.1.172962.3.579.2. 9 1981 Unknown [id number] 2.16.840.1.283550.3.579.2. 196 1981 Unknown [id number] 2.16.840.1.372452.3.579.2. 196 1959 Unknown [id number] 1.2.840.554275.1.13.239.2. 7.3.816167.315 1959 Unknown [id number] Social History Date Type Detail Facility Start: 09-04-2019 End: 02-10-2023 Tobacco smoking status IDIS Never smoker [facility] Start: 09-04-2019 End: 03-27-2021 Alcohol intake Current non-drinker of alcohol (finding) [place], [place] Start: 10-16-2017 Alcohol Comment very reare [place], [place] Start: 1980 [facility] Assigned At [facility] Start: 05-12-2019 End: 01-11-2024 Alcohol intake No [facility] Start: 09-06-2019 End: 02-10-2023 Tobacco use and exposure Never used [email or web address] Exposure to SARS-CoV -2 (event) Not sure [facility] Start: 03-27-2021 Alcohol Comment very rare Emma parikh Work Phone: Tobacco smoking status Never [facility] Start: 01-11-2024 End: 07-18-2024 Alcoholic beverage intake Current drinker of alcohol (finding) [facility] Start: 01-11-2024 End: 07-18-2024 Alcoholic beverage intake [facility] Start: 02-10-2023 Alcohol Comment caffeine intak e: 3-4 cups per day, soda [facility] Start: 10-03-2023 Gender identity Identifies as male gender (finding) [facility] Functional Status Date Assessment Result Facility 05-15-2024 Functional Status N/A [facility] Clinical Notes 09-13-2021 to 07-18-2024 Ruth [...] has a new job working at a [employer], 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 [place]: XR NOMS 11/28/23, [...] activities as tolerated documented in this encounter [facility] 05-15-2024 Note General Surgery Offi ce/Clinic Note [...] qualifying data Procedure/Surgica (more content not included)... 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 Son states he will give his father the message to return call. [facility] 07-06-2022 Note CONSULTATION CONSULTATION DATE: 07/06/2022 [...] in office. CC: Chen Kaplan CNP [facility] 09-13-2021 Hospital Discharge instructions Francis Pinto, - 09/13/2021 Return to the Emergency Department immediately if you develop worsening pain, numbness, weakness , or you have any other concerns. Please follow up with your orthopaeidc doctor in 2-3 days. Ice, elevate Use crutches The following attachments cannot be sent through Care Everywhere.Ankle Sprain ([place]ri [place]ankan)documented in this encounter [facility] Phone: Evaluation + Plan note No data available for this section [facility] General Surgery [place] Evaluation note Diagnosis Strain of right wrist, initial encounter- Primary documented in this encounter [facility] Phone: evaluation note* Diagnosis Seropositive rheumatoid arthritis (HCC) Rheumatoid arthritis documented in this encounter [facility] Phone: evaluation note* Diagnosis Pain Generalized pain documented in this encounter [facility] Phone: evalxuaust note* Diagnosis Microscopic hematuria Flank pain Abdominal pain, unspecified site Hydronephrosis with ureteral calculus Calculus of ureter documented in this encounter [facility] Phone: evaluation note* Diagnosis Sprain of right foot, initial encounter- Primary Sprain of left ankle, unspecified ligament, initial encounter documented in this encounter [facility] Phone: evaluation note* Diagnosis Low back pain, unspecified back pain laterality, unspecified chronicity, unspecified whether sciatica present- Primary Bilateral sciatica Sciatica documented in this encounter [facility] Attachments The following attachments cannot be sent through Care Everywhere. * Strain or Sprain ([place]ankan) [facility] Work Phone: Hospital Discharge instructions No data available for this section [facility] General Surgery [place] Progress note No data available for this section [facility] Surgery [place] Summary Purpose Family History No Family History Records FoundNo Family History Records FoundNo Family History Records FoundNo Family History Records FoundNo Family History Records Found No data available for this section No Family History Records FoundNo Family History Records FoundNo Family History Records Found Advance Directives No Advanced Directives Records FoundDocuments on File Type Date Recorded 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 * Finger: Bruises ([place]ri Lankan) documented in this encounter* Attachments The following attachments cannot be sent through Care Everywhere. * Knee Sprain ([place]ankan) documented in this encounter Additional Source Comments (unrecognized sect ion and content) No Status Records FoundNo Status Records FoundNo Status Records FoundNo Status Records FoundNo Status Records FoundNo Status Records FoundNo Status Records FoundNo Status Records Found INFORMATION SOURCE (unrecogn ized section and content) DATE CREATED AUTHOR 04/26/2019 [facility] DATE CREATED AUTHOR AUTHOR'S ORGANIZ ATION 09/23/2021 [facility] DATE CREATED AUTHOR AUTHOR'S ORGANIZ ATION 02/16/2023 [facility] DATE CREATED AUTHOR AUTHOR'S ORGANIZ ATION 08/14/2023 [facility] DATE CREATED AUTHOR AUTHOR'S ORGANIZ ATION 11/13/2023 [facility] DATE CREATED AUTHOR AUTHOR'S ORGANIZ ATION 05/16/2024 [facility] DATE CREATED AUTHOR AUTHOR'S ORGANIZ ATION 07/20/2024 [facility] DATE CREATED AUTHOR AUTHOR'S ORGANIZ ATION 10/30/2024 [facility] Reason for Visit (unrecogniz ed [...] Care Teams (unrecognized sec tion and content) Winemaker Relationship Specialty Start Date End Date Clari Dumont [address] [place] [address] PCP - General Nurse Practitioner 04/21/19 Winemaker Relationship Specialty Start Date End Date Ac Schmid MD [address] [place] [phone] PCP - General Family Medicine 02/08/23 Isabella Kaplan MD [address] [place] [id number] Referring Physician Family Medicine 09/12/23 Winemaker Relationship Specialty Start Date End Date Ac Schmid MD [address] [place] [phone] PCP - General Family Medicine 02/08/23 Isabella Kaplan MD [address] [place] [id number] Referring Physician Family Medicine 09/12/23 FOR RECORDS [...] BE BASED ON THE PRIMARY CLINICAL RECORDS. [facility]. provides no warranty or guarantee of the accuracy or completeness of information in this document.
--- NOTE | 2024-11-06 00:21 | ED.BACK1 ---
HPI HPI - Back Pain/Injury General Chief Complaint: Back Pain/Injury Stated Complaint: BACK PAIN Time Seen by Provider: 11/05/24 23:29 Source: patient Mode of arrival: walk-in Limitations: no limitations History of Present Illness HPI Narrative: This 44-year-old male who is in pain management for chronic low back pain presents for evaluation of pain in his sacral area. The patient had an MRI of the lumbar spine with and without contrast on 09/21/2024 at which time a partially visualized cystic area 5.1 cm located posterior to the S2 and S3 vertebral bodies was noted. He is scheduled for an MRI of this area later today. He states he is having severe pain in this area now. He did recently have a lumbar epidural shot. He states he is having pain in this area that is worse when he tries to sit down and use the bathroom. He states he does occasionally take stool softeners. He has been on narcotic analgesics several times recently. He was diagnosed once with a kidney stone and then with his chronic sciatica. He denies any constipation or incontinence of urine. He has no lower extremity weakness or numbness. Related Data Home Medications ?Medication ?Instructions ?Recorded ?Confirmed allopurinol 100 mg tablet 100 mg PO DAILY 06/15/24 10/29/24 hydrochlorothiazide 25 mg tablet 25 mg PO DAILY 10/15/24 10/29/24 methocarbamol 750 mg tablet 750 mg PO BID PRN pain 10/15/24 10/29/24 nabumetone 500 mg tablet 500 mg PO BID 10/15/24 10/29/24 Previous Rx's ?Medication ?Instructions ?Recorded hydrocodone 5 mg-acetaminophen 325 1 tab PO Q6H PRN pain 3 days #12 10/29/24 mg tablet tabs ketorolac 10 mg tablet 10 mg PO TID PRN pain #10 tabs 10/29/24 Allergies Allergy/AdvReac Type Severity Reaction Status Date / Time Penicillins Allergy Severe Rash Verified 11/05/24 20:46 tramadol (From Ultram) Allergy Severe Rash Verified 11/05/24 20:46 Opioid HPI Opioid Management Most Recent Opioid Data: Last Pain Scale 10 11/06/24 00:15 11/06/24 Review of Systems ROS Status of ROS 10 or more systems reviewed and unremarkable except as noted in history and below [facility] Medical History (Updated 11/06/24 @ 00:32 by Tiffanie Clark MD) Obesity ?E66.9 - Obesity, unspecified (ICD-10) Low back strain ?S39.012A - Strain of muscle, fascia and tendon of lower back, initial encounter (ICD-10) Influenza ?J11.1 - Influenza due to unidentified influenza virus with other respiratory manifestations (ICD-10) Gastroenteritis ?K52.9 - Noninfective gastroenteritis and colitis, unspecified (ICD-10) Bronchiolitis ?J21.9 - Acute bronchiolitis, unspecified (ICD-10) Anxiety ?F41.9 - Anxiety disorder, unspecified (ICD-10) Finger sprain ?S63.619A - Unspecified sprain of unspecified finger, initial encounter (ICD-10) Arthritis ?M19.90 - Unspecified osteoarthritis, unspecified site (ICD-10) Bipolar 1 disorder, depressed ?F31.9 - Bipolar disorder, unspecified (ICD-10) Cluster headaches ?G44.009 - Cluster headache syndrome, unspecified, not intractable (ICD-10) Hypertension ?I10 - Essential (primary) hypertension (ICD-10) DDD (degenerative disc disease) Rectal pain ?K62.89 - Other specified diseases of anus and rectum (ICD-10) Rectal bleeding ?K62.5 - Hemorrhage of anus and rectum (ICD-10) Insomnia ?G47.00 - Insomnia, unspecified (ICD-10) Normal colonoscopy Kidney stones, calcium oxalate ?N20.0 - Calculus of kidney (ICD-10) Anal fissure ?K60.2 - Anal fissure, unspecified (ICD-10) Surgical History Hx of colonoscopy ?Z98.890 - Other specified postprocedural states (ICD-10) Status post ORIF of fracture of ankle ?Z98.890 - Other specified postprocedural states (ICD-10) ?Z87.81 - Personal history of (healed) traumatic fracture (ICD-10) Family History Other Family history of COPD (chronic obstructive pulmonary disease) Family history of diabetes mellitus Family history of hypertension Heart disease Multiple kidney stones Social History Within the past year, how often did you have a drink containing alcohol: never Score interpretation: A score less than 4 is consistent with normal alcohol consumption. 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 Highest level of school completed/degree received: high school graduate Little interest or pleasure in doing things: not at all Feeling down, depressed, or hopeless: not at all Exam Narrative Exam Narrative: Vital signs and Nursing Notes reviewed: Patient is afebrile with a normal pulse, blood pressure is elevated 157/96, he is not hypoxic with pulse ox of 98% on room air General: Awake, alert, oriented, no acute distress, lying comfortably on the stretcher, on his right side, he moves easily about the stretcher to stand up and pull his pants down to reveal his buttocks and sacral area HEENT: Normocephalic atraumatic, mucous membranes are moist and pink, eyes are clear, normal conjunctiva, vision is grossly intact Chest: Lungs are clear to auscultation with good air entry, there is no wheezing rhonchi or rales appreciated no accessory muscle use, patient is speaking in complete sentences-no chest wall tenderness to palpation CVS: Regular rate and rhythm S1-S2, no murmurs rubs or gallops, pulses are brisk and equal bilaterally ABD: Soft, nondistended, nontender, no rebound guarding or rigidity, bowel sounds are normal, no pulsatile masses appreciated Extremities: Moving all extremities, no lower extremity tenderness or swelling noted, lower extremity strength and sensation is intact. Musc: There is tenderness without redness induration or skin changes over the sacral area. Skin: Normal in appearance without rash,pallor, petechiae or purpura Neuro: No focal deficits, upper and lower extremity strength and sensation is intact. There is no saddle anesthesia Constitutional Vital Signs, click to edit/add: Last Vital Signs Temp 97.9 F 11/05/24 20:44 Pulse 93 H 11/05/24 20:44 Resp 18 11/05/24 20:44 BP 157/96 H 11/05/24 20:44 Pulse Ox 98 11/05/24 20:44 O2 Del Method Room Air 11/05/24 20:44 Course Vital Signs Vital signs: Vital Signs Temperature 97.9 F 11/05/24 20:44 Pulse Rate 93 H 11/05/24 20:44 Respiratory Rate 18 11/05/24 20:44 Blood Pressure 157/96 H 11/05/24 20:44 Pulse Oximetry 98 11/05/24 20:44 Oxygen Delivery Method Room Air 11/05/24 20:44 Temperature 97.9 F 11/05/24 20:44 Pulse Rate 93 H 11/05/24 20:44 Respiratory Rate 18 11/05/24 20:44 Blood Pressure 157/96 H 11/05/24 20:44 Pulse Oximetry 98 11/05/24 20:44 Oxygen Delivery Method Room Air 11/05/24 20:44 MDM - Back Pain/Injury MDM Narrative Medical decision making narrative: This 44-year-old male who is in pain management locally and recently had a lumbar epidural injection and was incidentally found to have a cystic structure in his sacrum on an MRI in September 2024 presents for evaluation of pain in his sacral area. He denies any injury. He has recently been on narcotic analgesics due to his low back pain and also recently diagnosed with a kidney stone. He does not have any neurologic symptoms related to this sacral pain. I did review his CT scan that showed a partially visualized cystic area with no central or foraminal stenosis measuring 5.1 x 2.8 cm posterior to the S2 and S3 vertebral body. He is scheduled for an MRI later today. He was medicated emergency department with a dose of Toradol, morphine and Norflex. He was encouraged to follow-up for his MRI later today and with his family physician for further evaluation and treatment. He will be given a prescription for Colace to use for his constipation. Discharge Plan Discharge Chief Complaint: Back Pain/Injury Clinical Impression: Acute exacerbation of chronic low back pain, Pain in sacrum, Constipation Patient Disposition: Home, Self-Care Time of Disposition Decision: 00:20 Condition: Good Prescriptions / Home Meds: No Action allopurinol 100 mg tablet 100 mg PO DAILY methocarbamol 750 mg tablet 750 mg PO BID PRN (Reason: pain) hydrochlorothiazide 25 mg tablet 25 mg PO DAILY nabumetone 500 mg tablet 500 mg PO BID hydrocodone-acetaminophen 5-325 mg tablet 1 tab PO Q6H PRN (Reason: pain) 3 Days Qty: 12 0RF Rx Instructions: DX: M54.5 ketorolac 10 mg tablet 10 mg PO TID PRN (Reason: pain) Qty: 10 0RF Print Language: Serbian Instructions: Pain Management (ED) Referrals: RODRIGUEZ KAPLAN [Primary Care Provider] - 1 week
[2024-11-06] MEDS: KETOROLAC TROMETHAMINE 30 MG/ML VIAL IM (00:34)
[2024-11-06] MEDS: MORPHINE SULFATE 4 MG/ML VIAL IM (00:34)
[2024-11-06] MEDS: ORPHENADRINE 60 MG/ 2 ML VIAL IM (00:34)
== END 2024-11-06 00:43 | disposition home or self-care (01) ==
PROVIDERS: Emergency Provider Emergency Medicine; PCP Nurse Practitioner Family
DX: K59.00 Constipation, unspecified (principal); M53.3 Sacrococcygeal disorders, not elsewhere classified; M54.50 Low back pain, unspecified; G89.29 Other chronic pain; Z87.442 Personal history of urinary calculi
CPT/HCPCS: 96372; 99284; J1885; J2270; J2360

== ENCOUNTER 2024-11-13 12:40 | Outpatient (OUT) | payer MEDICAID, SELFPAY ==
--- OUTSIDE RECORDS SUMMARY | 2024-11-06 12:19 | XMS_ITS | CCD ---
Author Organization [facility] Informat ion Partnership [facility] Care Team Providers Care Varnish Thinner Name Role Phone LEROYJEAN Primary Care Unavailable [...] Admitting Unavailable MIKALA, CLARI Primary Care Unavailable EUSEIBO, ISABELLA Consulting Unavailable EUSEBIO, ISABELLA Admitting Unavailable EUSEBIO, ISABELLA Attending Unavailable EUSEBIO, ISABELLA Primary Care Unavailable Ruiz JEM, Lakshmi Attending Unavailable MIKALA, CLARI A Primary Care Physician [phone] ISABELLA KAPLAN Referring Unavailable NILLDavid Attending Unavailable [...] (13 sources) traMADol Drug Allergy 6 Rash [facility] Penicillins (antibiotic) (13 sources) Penicillins Drug Allergy 1 Rash [facility] (7 sources) Penicillins; Translations: [penicillins] Propensity to adverse reactions to drug 1 Rash, Eruption of skin (disorder) [facility]- [place], [place] (9 sources) traMADol; Translations: [tramadol] Drug Allergy 6 Rash, Eruption of skin (disorder) [facility], [place] (2 sources) Penicillin; Translations: [penicillin] Drug Allergy 8 [facility] Rep[facility] (2 sources) traMADol; Translations: [Ultram] Drug Allergy [facility] (3 sources) Naproxen Drug Allergy [...] BID, # 20 cap(s), Refills(s) 0, Pharmacy: [facility] 1622, 160, cm, 05/04/21 [...] choosing us for your care. [facility] Ambulatory Visit Summary Ambulatory Visit Summary THANIA [...] us for your care. Normal [facility] Physician Referralon 023 Physician Referral [phone] [id number] TIFF Normal [facility] MRI LSPINE WO [...] MICHAEL RAE Date: 2022-05-21 18:38 Normal [facility] XR FOREIGN BODY EYEon 2021 XR FOREIGN BODY EYE EXAMINATION: XR FOREIGN BODY EYE HISTORY: Foreign body in eye COMPARISON: No relevant comparison available. FINDINGS: ORBITS: Negative for a metallic foreign body. OTHER: Negative. IMPRESSION: 1. No metallic foreign body within the orbits. Electronically authenticated by: APRYL RIOS Date: 2022-05-21 10:36 Normal [facility] XR LSPINE MIN 4 VIEWSon 02-01 XR [...] APRYL RIOS Date: 2022-02-22 11:06 Normal [facility] CBC with Diffon 09-23-2021 Abs. Basophil 0.02 k/uL Normal 0.0-0.2 [facility] Comment on above: Performed By: #### C JESSICA, CP, IPF ####[facility] [place] [address] Lab Director: Michael Meyer MD Abs.Imm.Granulocyte 0.02 k/uL Normal 0.00-0.30 [facility] Comment on above: Performed By: #### C JESSICA CP, IPF ####[facility] [place] [address] Lab Director: Michael Meyer MD Abs.Neutrophil (Seg) 1.28 k/uL Low 1.50-8.10 [facility] Comment on above: Performed By: #### C ELOY LOPEZ, IPF ####[address] , [place] [address])[phone] Director: Michael Meyer MD Basophils/100 WBC (Bld) 1 % Normal 0-2 [facility] Comment on above: Performed By: #### C JESSICA CP, IPF ####[address] , [place] [address])[phone] Director: Michael Meyer MD Eosinophils (Bld) [#/Vol] 0.00 10*3/uL Normal 0.00-0.44 [facility] Comment on above: Performed By: #### C ELOY LOPEZ, IPF ####[address] , [place] [address])[phone] Director: Michael Meyer MD Eosinophils/100 WBC (Bld) 0 % Low 1-4 [facility] Comment on above: Performed By: #### C ELOY LOPEZ, IPF ####[address] , [facility]83[facility])[phone] Director: Michael Meyer MD Immature granulocytes/100 WBC (Bld) 1 % High 0 [facility] Comment on above: Performed By: #### C ELOY LOPEZ, IPF ####[address] , [facility]83[facility])[phone] Director: Michael Meyer MD Lymphocytes (Bld) [#/Vol] 0.73 10*3/uL Low 1.10-3.70 [facility] Comment on above: Performed By: #### C ELOY LOPEZ, IPF ####[address] [place] [address]([facility])[phone] Director: Michael Meyer MD Lymphocytes/100 WBC (Bld) 33 % Normal 24-43 [facility] Comment on above: Performed By: #### C DP, CP, IPF ####[address] [place] [address] Lab Director: Michael Meyer MD Monocytes (Bld) [#/Vol] 0.15 10*3/uL Normal 0.10-1.20 [facility] Comment on above: Performed By: #### C DP, CP, IPF ####[address] [place] [address] Lab Director: Michael Meyer MD Monocytes/100 WBC (Bld) 7 % Normal 3-12 [facility] Comment on above: Performed By: #### C DP, CP, IPF ####[address] [place] [address] Lab Director: Michael Meyer MD Morphology Fernando (Bld) [Interp] Platelet scan shows Normal Platelets Normal [facility] Comment on above: Performed By: #### C DP, CP, IPF ####[address] [place] [address] Lab Director: Michael Meyer MD Neutrophil (Seg) 58 % Normal 36-65 [facility] Comment on above: Performed By: #### C DP, CP, IPF ####[address] [place] [address] Lab Director: Michael Meyer MD Erythrocyte distribution width (RBC) [Ratio] 11.2 % Low 11.8-14.4 [facility] Comment on above: Performed By: #### C DP, CP, IPF ####[address] [place] [address] Lab Director: Michael Meyer MD Hematocrit (Bld) [Volume fraction] 46.3 % Normal 40.7-50.3 [facility] Comment on above: Performed By: #### C DP, CP, IPF ####[address] , [place] 69[address]83 lab Director: Michael Meyer MD Hemoglobin (Bld) [Mass/Vol] 15.6 g/dL Normal 13.0-17.0 [facility] Comment on above: Performed By: #### C DP, CP, IPF ####[address] , [place] [phone] lab Director: Michael Meyer MD MCH (RBC) [Entitic mass] 28.5 pg Normal 25.2-33.5 [facility] Comment on above: Performed By: #### C DP, CP, IPF ####[address] , [place] [phone] lab Director: Michael Meeyr MD MCHC (RBC) [Mass/Vol] 33.7 g/dL Normal 28.4-34.8 [facility] Comment on above: Performed By: #### C DP, CP, IPF ####[address] , [place] 0177283 lab Director: Michael Meyer MD MCV (RBC) [Entitic vol] 84.6 fL Normal 82.6-102.9 [facility] Comment on above: Performed By: #### C DP, CP, IPF ####[address] , [place] 4792683 lab Director: Michael Meyer MD NRBC Automated 0.0 per 100 WBC Normal 0.0 [facility] Comment on above: Performed By: #### C DP, CP, IPF ####[address] , [place] [phone] lab Director: Michael Meyer MD Platelet Count See Reflexed IPF Result Normal 138-453 [facility] Comment on above: Performed By: #### C DP, CP, IPF ####[address] , [place] [address] lab Director: Michael Meyer MD RBC (Bld) [#/Vol] 5.47 10*6/uL Normal 4.21-5.77 [facility] Comment on above: Performed By: #### C DP, CP, IPF ####[address] [place] [address] Lab Director: Michael Meyer MD WBC (Bld) [#/Vol] 2.2 10*3/uL Low 3.5-11.3 [facility] Comment on above: Performed By: #### C DP, CP, IPF ####[address] [place] [address] Lab Director: Michael Meyer MD Auto Diff Performed NOT REPORTED Normal [facility] Comment on above: Performed By: #### C DP, CP, IPF ####[address] , [facility]83[facility])[phone] Director: Michael Meyer MD MPV NOT REPORTED Normal 8.1-13.5 [facility] Comment on above: Performed By: #### C DP, CP, IPF ####[address] , [place] [phone] Director: Michael Meyer MD Platelet Comment NOT REPORTED Normal [facility] Comment on above: Performed By: #### C DP, CP, IPF ####[address] , [place] [phone])[phone] Director: Michael Meyer MD RBC morphology finding Nom (d) NOT REPORTED Normal [facility] Comment on above: Performed By: #### C DP, CP, IPF ####[address] [place] [address] Lab Director: Michael Meyer MD WBC Morphology NOT REPORTED Normal [facility] Comment on above: Performed By: #### C DP, CP, IPF ####[address] [place] [address] Lab Director: Michael Meyer MD Comp Metabolic Profon 2020 (cont.) Normal [facility] Comment on above: Result Comment: Aver age GFR for 40-49 years old: 99 mL/min/1.73sq m Chronic Kidney Disease: <60 mL/min/1.73sq m Kidney failure: <15 mL/min/1.73sq m eGFR calculated using average adult body mass. Additional eGFR calculator available at: http://www.Finalta/multiple_crcl_2012.htm Performed By: #### C DP, CP, IPF ####[address] [place] [address] Lab Director: Michael Meyer MD Albumin [Mass/Vol] 4.1 g/dL Normal 3.5-5.2 [facility] Comment on above: Performed By: #### C DP, CP, IPF ####[address] , [place] 0060583 Lab Director: Michael Meyer MD Albumin/Glob Ratio 1.1 Normal 1.0-2.5 [facility] Comment on above: Performed By: #### C DP, CP, IPF ####[address] , [place] 697[address]83 Lab Director: Michael Meyer MD Alkaline Phos 87 U/L Normal 40-129 [facility] Comment on above: Performed By: #### C DP, CP, IPF ####[address] , [place] 0197183 Lab Director: Michael Meyer MD ALT [Catalytic activity/Vol] 65 U/L High 5-41 [facility] Comment on above: Performed By: #### C DP, CP, IPF ####[address] [place] [address] Lab Director: Michael Meyer MD Anion gap [Moles/Vol] 13 mmol/L Normal 9-17 [facility] Comment on above: Performed By: #### C DP, CP, IPF ####[address] , [place] 2126383 Lab Director: Michael Meyer MD AST [Catalytic activity/Vol] 68 U/L High <40 [facility] Comment on above: Performed By: #### C DP, CP, IPF ####[address] , [place] 4407083 lab Director: Michael Meyer MD Bilirubin [Mass/Vol] 0.52 mg/dL Normal 0.3-1.2 [facility] Comment on above: Performed By: #### C DP, CP, IPF ####[address] , [place] 4716983 lab Director: Michael Meyer MD BUN/CRE Ratio 8 Low 9-20 [facility] Comment on above: Performed By: #### C JESSICA, CP, IPF ####[address] , [place] 0672883 lab Director: Michael Meyer MD Calcium [Mass/Vol] 8.8 mg/dL Normal 8.6-10.4 [facility] Comment on above: Performed By: #### C DP, CP, IPF ####[address] , [place] 6406[address] lab Director: Michael Meyer MD Chloride [Moles/Vol] 100 mmol/L Normal 98-107 [facility] Comment on above: Performed By: #### C DP, CP, IPF ####[address] , [place] 613[address]83 lab Director: Michael Meyer MD CO2 [Moles/Vol] 23 mmol/L Normal 20-31 [facility] Comment on above: Performed By: #### C DP, CP, IPF ####[address] [place] [address] Lab Director: Michael Meyer MD Creatinine [Mass/Vol] 1.55 mg/dL High 0.70-1.20 [facility] Comment on above: Performed By: #### C DP, CP, IPF ####[address] , [place] 6738383 Lab Director: Michael Meyer MD GFR, Amer >60 Normal >60 [facility] Comment on above: Performed By: #### C DP, CP, IPF ####[address] [place] [address] Lab Director: Michael Meyer MD GFR,non Amer 50 mL/min Low >60 [facility] Comment on above: Performed By: #### C DP, CP, IPF ####[address] [place] [address] Lab Director: Michael Meyer MD Glucose [Mass/Vol] 94 mg/dL Normal 70-99 [facility] Comment on above: Performed By: #### C DP, CP, IPF ####[address] , [place] 0622983 Lab Director: Michael Meyer MD Potassium [Moles/Vol] 3.9 mmol/L Normal 3.7-5.3 [facility] Comment on above: Performed By: #### C DP, CP, IPF ####[address] [place] [address] Lab Director: Michael Meyer MD Protein [Mass/Vol] 7.9 g/dL Normal 6.4-8.3 [facility] Comment on above: Performed By: #### C DP, CP, IPF ####[address] , [place] 0804783 Lab Director: Michael Meyer MD Sodium [Moles/Vol] 136 mmol/L Normal 135-144 [facility] Comment on above: Performed By: #### C ELOY LOPEZ, IPF ####[address] [place] [address] Lab Director: Michael Meyer MD Staging: Normal [facility] Comment on above: Result Comment: Stag e 1: Some kidney damage normal GFR Stage 2: Mild kidney damage GFR 60-89 Stage 3: Moderate kidney damage GFR 30-59 Stage 4: Severe kidney damage GFR 15-29 Stage 5: Severe kidney damage GFR <15 ESRD - chronic treatment by dialysis or transplant Performed By: #### C ELOY LOPEZ, IPF ####[address] [place] [address] lab Director: Michael Meyer MD Urea nitrogen [Mass/Vol] 13 mg/dL Normal 6-20 [facility] Comment on above: Performed By: #### C ELOY LOPEZ, IPF ####[address] , [place] 1413583 Lab Director: Michael Meyer MD Lactic Acidon 09-23-2021 Lactate [Moles/Vol] 0.9 mmol/L Normal 0.5-2.2 [facility] Comment on above: Performed By: #### L ACTIC ####[address] , [place] 8896[address] lab Director: Michael Meyer MD Lactic Acid,Whole Bl NOT REPORTED Normal 0.7-2.1 [facility] Comment on above: Performed By: #### L ACTIC ####[address] [place] [address] Lab Director: Michael Meyer MD PLT, Immature Fract.on 09-23 Platelet, Fluoresc. 42 k/uL Low 138-453 [facility] Comment on above: Performed By: #### C ELOY LOPEZ, IPF #### [address] [place] [address] Staff Research Scientist: Michael Meyer MD PLT, Immature Fract. 1.2 % Normal 1.1-10.3 [facility] Comment on above: Performed By: #### C DP, CP, IPF #### [facility] [address] [place] [address] [place] [address] Staff Research Scientist: Michael Meyer MD XR CHEST (SINGLE VIEW [...] by: Will Calderón 09/22/21 Final result Normal [facility] Resp Viral Panelon Adenovirus Not detected Normal [facility] Comment on above: Performed By: #### R CORPORATE WEBMASTER ####[facility] [address] [place] [address] Lab Director: Juan R Tang[address] [place] [address] Lab Director: Michael Meyer MD Bordet.parapertussis Not detected Normal [facility] Comment on above: Performed By: #### R CORPORATE WEBMASTER ####[facility] [address] [place] [address] Lab Director: Juan R Tang[address] [place], [place] [address] Lab Director: Michael Meyer MD Bordetella pertussis Not detected Normal [facility] Comment on above: Performed By: #### R CORPORATE WEBMASTER ####[facility] [address] [place] [address] Lab Director: Juan R Tang[address] [place] [address] Lab Director: Michael Meyer MD Chlamyd.pneumoniae Not detected Normal [facility] Comment on above: Performed By: #### R CORPORATE WEBMASTER ####[facility] [address] [place] [address] Lab Director: Juan R Tang[address] [place] [address] Lab Director: Michael Meyer MD Coronavirus 229E Not detected [facility] Comment on above: Performed By: #### R CORPORATE WEBMASTER ####[place] [address] [place], [place] [phone] Director: Juan R Tang[address] [place] [address] Lab Director: Michael Meyer MD Coronavirus HKU1 Not detected [facility] Comment on above: Performed By: #### R CORPORATE WEBMASTER ####[place] [address] [place] [address] Lab Director: Juan R Tang[address] [place] [address] Lab Director: Michael Meyer MD Coronavirus NL63 Not detected [facility] Comment on above: Performed By: #### R CORPORATE WEBMASTER ####[facility] [address] [place] [address] Lab Director: Juan R Tang[address] [place] [address] Lab Director: Michael Meyer MD Coronavirus OC43 Not detected [facility] Comment on above: Performed By: #### R CORPORATE WEBMASTER ####[facility] [address] [place], [place] [phone] Director: Juan R [address] [place] [address] Lab Director: Michael Meyer MD Human Metapneumo Not detected [facility] Comment on above: Performed By: #### R CORPORATE WEBMASTER ####[facility] [address] [place], [place] [phone])[phone] Director: [address] [place] [address] Lab Director: Michael Meyer MD Influenza A Not detected [facility] Comment on above: Performed By: #### R CORPORATE WEBMASTER ####[facility] [address] [phone] Director: Juan R [address] [place] [address] Lab Director: Michael Meyer MD Influenza B Not detected [facility] Comment on above: Performed By: #### R CORPORATE WEBMASTER ####[address] [phone])[phone] Director: Juan R [address] [place] [address] Lab Director: Michael Meyer MD Mycoplas.pneumoniae Not detected Normal [facility] Comment on above: Result Comment: Perf ormed by multiplexed nucleic acid assay. Performed By: #### R CORPORATE WEBMASTER ####[facility] [address] [place], [place] [phone] Director: Juan R [address] [place] [address] Lab Director: Michael Meyer MD Parainfluenza 1 Not detected Normal [facility] Comment on above: Performed By: #### R CORPORATE WEBMASTER ####[facility] [address] [place] [address] Lab Director: Juan R Tang[address] [place] [phone] Director: Michael Meyer MD Parainfluenza [address] [facility] Comment on above: Performed By: #### R CORPORATE WEBMASTER ####[facility] [address] [place] [address] Lab Director: Juan R Tang[address] [place] [address] Lab Director: Michael Meyer MD Parainfluenza [address] [facility] Comment on above: Performed By: #### R CORPORATE WEBMASTER ####[address] [address] Lab Director: Juan R Tang[address] [place] [address] Lab Director: Michael Meyer MD Parainfluenza [address] [facility] Comment on above: Performed By: #### R CORPORATE WEBMASTER ####[facility] [place] [address] Lab Director: Juan R Tang[address] [place] [address] Lab Director: Michael Meyer MD Resp Syncytial Virus Not detected Normal [facility] Comment on above: Performed By: #### R CORPORATE WEBMASTER ####[facility] [address] [place] [address] Lab Director: Juan R [facility] [place] [address] Lab Director: Michael Meyer MD Rhino/Enterovirus Not detected [facility] Comment on above: Performed By: #### R CORPORATE WEBMASTER ####[place] [address] [place], [place] [phone] Director: Juan R Tang[address] [place] [address] Lab Director: Michael Meyer MD SARS-CoV-2 (COVID-19) RNA LYNDON+probe Ql (Unsp spec) Detected Abnormal [facility] Comment on above: Result Comment: Resu lts reported to the appropriate Health Department Performed By: #### R CORPORATE WEBMASTER ####[address] [phone])[phone] Director: Juan R Tang[address] [place] [address] Lab Director: Michael Meyer MD Resp Viral Panelon 1 Source: .NASOPHARYNGEAL SWAB Normal [facility] Comment on above: Performed By: #### R CORPORATE WEBMASTER ####[address] [phone])[phone] Director: Juan R Tang[address] [place] [address] Lab Director: Michael Meyer MD Influenza A H1 NOT REPORTED Normal [facility] Comment on above: Performed By: #### R CORPORATE WEBMASTER ####[address] [phone] Director: Juan R Tang [address] [place] [address] Lab Director: Michael Meyer MD Influenza A H1-2009 NOT REPORTED Normal [facility] Comment on above: Performed By: #### R CORPORATE WEBMASTER ####[address] [phone] Director: Juan R Tang[address] [place] [address] Lab Director: Michael Meyer MD Influenza A H3 NOT REPORTED Normal [facility] Comment on above: Performed By: #### R CORPORATE WEBMASTER ####[facility] [address] [place] [address] lab Director: Juan R Tang, [facility] [place] [address] lab Director: Michael Meyer MD No Panel Informationon 09-13 No acute findings. [facility] EXAMINATION: THREE XRAY VIEWS OF THE RIGHT ANKLE; THREE XRAY VIEWS OF THE LEFT FOOT 09/13/2021 9:16 am COMPARISON: None. HISTORY: ORDERING SYSTEM PROVIDED HISTORY: Pain TECHNOLOGIST PROVIDED HISTORY: Pain FINDINGS: No acute fracture demonstrated. 2 threaded screws noted medial malleolus from repair prior injury. Alignment anatomic. Small plantar and dorsal calcaneal spurs present. Fuzh-wi-rzfsdxmb degenerative change primarily midfoot. Overall alignment anatomic. Soft tissues unremarkable. [facility] Jeronimo Art DO - 09/13/2021 EXAMINATION: THREE XRAY VIEWS OF THE RIGHT ANKLE; THREE XRAY VIEWS OF THE LEFT FOOT 09/13/2021 9:16 am COMPARISON: None. HISTORY: ORDERING SYSTEM PROVIDED HISTORY: Pain TECHNOLOGIST PROVIDED HISTORY: Pain FINDINGS: No acute fracture demonstrated. 2 threaded screws noted medial malleolus from repair prior injury. Alignment anatomic. Small plantar and dorsal calcaneal spurs present. Uwem-ou-qkcimtvy degenerative change primarily midfoot. Overall alignment anatomic. Soft tissues unremarkable. IMPRESSION: No acute findings. [facility] Work Phone: [facility] Work Phone: No acute findings. [facility] EXAMINATION: THREE XRAY VIEWS OF THE RIGHT FOOT; THREE XRAY VIEWS OF THE LEFT ANKLE 09/13/2021 9:14 am COMPARISON: None. HISTORY: ORDERING SYSTEM PROVIDED HISTORY: pain TECHNOLOGIST PROVIDED HISTORY: pain FINDINGS: No acute fracture demonstrated. Alignment is anatomic. 2 threaded screws noted within the medial malleolus. Emrf-zb-hvvrnnvm degenerative change primarily midfoot. Small plantar and [...] threaded screws noted within the medial malleolus. Gfra-na-whkqlyyw degenerative change primarily midfoot. Small plantar and dorsal calcaneal spurs present. Soft tissues unremarkable. IMPRESSION: No acute findings. [employer] Phone: No Panel InformationOrdered By: Jeronimo Art on 09-13-2021 [employer] Phone: XR ANKLE LEFT (MIN 3 VIEWS)o n 09-13-2021 XR ANKLE LEFT (MIN 3 VIEWS) EXAMINATION: THREE XRAY VIEWS OF THE RIGHT FOOT; THREE XRAY VIEWS OF THE LEFT ANKLE 09/13/2021 9:14 am COMPARISON: None. HISTORY: ORDERING SYSTEM PROVIDED HISTORY: pain TECHNOLOGIST PROVIDED HISTORY: pain FINDINGS: No acute fracture demonstrated. Alignment is anatomic. 2 threaded screws noted within the medial malleolus. Wogf-hf-viqjqnpv degenerative change primarily midfoot. Small plantar and dorsal calcaneal spurs present. Soft tissues unremarkable. IMPRESSION: No acute findings. Interpreted by: Jeronimo Art DO Signed by: Jeronimo Art DO 09/13/21 Final result Normal [facility] Radiology Study observation (narrative) [employer] Phone: XR ANKLE RIGHT (MIN 3 VIEWS) [...] Small plantar and dorsal calcaneal spurs present. Xfek-kh-zwwhkopj degenerative change primarily midfoot. Overall alignment anatomic. Soft tissues unremarkable. IMPRESSION: No acute findings. Interpreted by: Jeronimo Art DO Signed by: Jeronimo Art DO 09/13/21 Final result Normal [facility] Radiology Study observation (narrative) [employer] Phone: XR FOOT LEFT (MIN 3 VIEWS)on [...] Small plantar and dorsal calcaneal spurs present. [id number] degenerative change primarily midfoot. Overall alignment anatomic. Soft tissues unremarkable. IMPRESSION: No acute findings. Interpreted by: Jeronimo Art DO Signed by: Jeronimo Art DO 09/13/21 Final result Normal [facility] Radiology Study observation (narrative) [employer] Phone: XR FOOT RIGHT (MIN 3 VIEWS)o n 09-13-2021 XR FOOT RIGHT (MIN 3 VIEWS) EXAMINATION: THREE XRAY VIEWS OF THE RIGHT FOOT; THREE XRAY VIEWS OF THE LEFT ANKLE 09/13/2021 9:14 am COMPARISON: None. HISTORY: ORDERING SYSTEM PROVIDED HISTORY: pain TECHNOLOGIST PROVIDED HISTORY: pain FINDINGS: No acute fracture demonstrated. Alignment is anatomic. 2 threaded screws noted within the medial malleolus. [id number] degenerative change primarily midfoot. Small plantar and dorsal calcaneal spurs present. Soft tissues unremarkable. IMPRESSION: No acute findings. Interpreted by: Jeronimo Art DO Signed by: Jeronimo Art DO 09/13/21 Final result Normal [facility] Radiology Study observation (narrative) [employer] Phone: XR ABDOMEN (KUB) (SINGLE AP VIEW)on [...] Kerri Scott MD 05/08/21 Final result Normal [facility] XR ABDOMEN (KUB) (SINGLE AP VIEW)Ordered By: Quincy Interiano on 05-08-2021 Nonobstructive bowel gas pattern. No radiodensities diagnostic of nephroliths. [employer] Phone: EXAMINATION: ONE SUPINE XRAY VIEW(S) OF THE ABDOMEN 05/08/2021 10:35 am COMPARISON: 01 May 2021 HISTORY: ORDERING SYSTEM PROVIDED HISTORY: Microscopic hematuria FINDINGS: The bowel gas pattern is non obstructive. No organomegaly, free air or abnormal calcifications are noted. Mild levo scoliotic curvature is present. [employer] Phone: Luther, pn Incoming Radiant Results From [employer] [place] - 05/08/2021 2:06 PM EDT EXAMINATION: ONE SUPINE XRAY VIEW(S) OF THE ABDOMEN 05/08/2021 10:35 am COMPARISON: 01 May 2021 HISTORY: ORDERING SYSTEM PROVIDED HISTORY: Microscopic hematuria FINDINGS: The bowel gas pattern is non obstructive. No organomegaly, free air or abnormal calcifications are noted. Mild levo scoliotic curvature is present. IMPRESSION: Nonobstructive bowel gas pattern. No radiodensities diagnostic of nephroliths. [employer] Phone: [employer] Phone: No Panel InformationOrdered By: Fatuma Sanchez on 05-01-2021 1. No acute osseous abnormality of the right ankle. Posttraumatic and postsurgical changes as above. Mild tibiotalar joint osteoarthritis. 2. Acute osseous abnormality of the right foot. Chronic appearing well-defined erosion or subchondral cyst at the base of the 3rd metatarsal without associated joint space loss. This is a nonspecific finding. [employer] Phone: EXAMINATION: THREE XRAY VIEWS OF THE [...] base of the 3rd metatarsal is nonspecific. [employer] Phone: Luther, pn Incoming Radiant Results From [employer] - 05/01/2021 5:46 PM EDT EXAMINATION: THREE [...] space loss. This is a nonspecific finding. [employer] Phone: [employer] Phone: Unremarkable left wrist/left hand series. There are no plain radiographic findings to suggest an active synovial process of bone as rheumatoid arthritis [employer] Phone: EXAMINATION: 2 XRAY VIEWS OF THE LEFT WRIST; TWO XRAY VIEWS OF THE LEFT HAND 05/01/2021 11:10 am COMPARISON: None. HISTORY: ORDERING SYSTEM PROVIDED HISTORY: Seropositive rheumatoid arthritis (HCC) FINDINGS: The bones and joints are unremarkable without definite fracture, dislocation, significant degenerative/erosive change, radiopaque foreign body, abnormal soft tissue calcification or bony destructive lesion [employer] Phone: Luther, pn Incoming Radiant Results From [employer] [place] - 05/01/2021 11:26 AM EDT EXAMINATION: 2 [...] synovial process of bone as rheumatoid arthritis [employer] Phone: [employer] Phone: XR ABDOMEN (KUB) (SINGLE AP VIEW)on [...] Linda Albarran MD 05/01/21 Final result Normal [facility] XR ABDOMEN (KUB) (SINGLE AP VIEW)Ordered By: Quincy Interiano on 05-01-2021 No significant radiographic abnormality in the abdomen. [employer] Phone: EXAMINATION: ONE SUPINE XRAY VIEW(S) OF THE ABDOMEN 05/01/2021 10:51 am COMPARISON: None. HISTORY: ORDERING SYSTEM PROVIDED HISTORY: Pain FINDINGS: Nonobstructive bowel gas pattern. No abnormal calcifications overlying the gallbladder urinary tract. No mass effect. Osseous structures grossly intact. [employer] Phone: Luther, pn Incoming Radiant Results From [employer] - 05/01/2021 11:21 AM EDT EXAMINATION: ONE SUPINE XRAY VIEW(S) OF THE ABDOMEN 05/01/2021 10:51 am COMPARISON: None. HISTORY: ORDERING SYSTEM PROVIDED HISTORY: Pain FINDINGS: Nonobstructive bowel gas pattern. No abnormal calcifications overlying the gallbladder urinary tract. No mass effect. Osseous structures grossly intact. IMPRESSION: No significant radiographic abnormality in the abdomen. [employer] Phone: [employer] Phone: XR ANKLE LEFT (MIN 3 VIEWS)o [...] Clarissa Gomez MD 05/01/21 Final result Normal [facility] XR ANKLE LEFT (MIN 3 VIEWS)O rdered By: Fatuma Sanchez on 05-01-2021 Moderate calcaneal spurring [employer] Phone: EXAMINATION: THREE XRAY VIEWS OF THE LEFT ANKLE 05/01/2021 11:12 am COMPARISON: None. HISTORY: ORDERING SYSTEM PROVIDED HISTORY: Seropositive rheumatoid arthritis (HCC) FINDINGS: There is moderate spurring of the superior aspect of the os calcis. The bones and joints are otherwise unremarkable without definite effusion, acute fracture, dislocation radiopaque foreign body or bony destructive lesion [employer] Phone: Luther, Mh[employer] Incoming Radiant Results From [employer] - 05/01/2021 11:21 AM EDT EXAMINATION: THREE [...] bony destructive lesion IMPRESSION: Moderate calcaneal spurring [employer] Phone: [employer] Phone: XR ANKLE RIGHT (MIN 3 VIEWS) [...] Michael Caceres MD 05/01/21 Final result Normal [facility] XR FOOT LEFT (2 VIEWS)on XR [...] Clarissa Gomez MD 05/01/21 Final result Normal [facility] XR FOOT LEFT (2 VIEWS)Ordere d By: Fatuma Sanchez on 05-01-2021 Mild degenerative changes There are no plain radiographic findings to suggest an active synovial process of bone as rheumatoid arthritis [employer] Phone: EXAMINATION: TWO XRA Y VIEWS OF [...] radiopaque foreign body or bony destructive lesion [employer] Phone: Luther, Mhpn Incoming Radiant Results From [employer] [place] - 05/01/2021 11:29 AM EDT EXAMINATION: TWO [...] synovial process of bone as rheumatoid arthritis Dydra Work Phone: [facility] Work Phone: XR FOOT RIGHT (2 VIEWS)on [...] Michael Caceres MD 05/01/21 Final result Normal [facility] XR HAND LEFT (2 VIEWS)on XR [...] Clarissa Gomez MD 05/01/21 Final result Normal [facility] XR HAND RIGHT (2 VIEWS)on XR [...] Clarissa Gomez MD 05/01/21 Final result Normal [facility] XR HAND RIGHT (2 VIEWS)Order ed By: Fatuma Sanchez on 05-01-2021 Unremarkable two-vie w right hand series. There are no definite plain radiographic findings to suggest an active synovial process of bone as rheumatoid arthritis [employer] Phone: EXAMINATION: TWO XRA Y VIEWS OF THE RIGHT HAND 05/01/2021 11:12 am COMPARISON: None. HISTORY: ORDERING SYSTEM PROVIDED HISTORY: Seropositive rheumatoid arthritis (HCC) FINDINGS: The bones and joints are unremarkable without definite fracture, dislocation, significant degenerative/erosive change, radiopaque foreign body, abnormal soft tissue calcification or bony destructive lesion [employer] Phone: Luther, [facility] Incoming Radiant Results From [employer] [place] - 05/01/2021 11:24 AM EDT EXAMINATION: TWO [...] synovial process of bone as rheumatoid arthritis [employer] Phone: [employer] Phone: XR WRIST LEFT (2 VIEWS)on XR [...] Clarissa Gomez MD 05/01/21 Final result Normal [facility] XR WRIST RIGHT (2 VIEWS)on 0 [...] Clarissa Gomez MD 05/01/21 Final result Normal [facility] XR WRIST RIGHT (2 VIEWS)Orde red By: Fatuma Sanchez on 05-01-2021 Unremarkable two-vie w right wrist series [employer] Phone: EXAMINATION: 2 XRAY VIEWS OF THE RIGHT WRIST; 05/01/2021 11:11 am COMPARISON: None. HISTORY: ORDERING SYSTEM PROVIDED HISTORY: Seropositive rheumatoid arthritis (HCC) FINDINGS: The bones and joints are unremarkable without definite fracture, dislocation, significant degenerative/erosive change, radiopaque foreign body or bony destructive lesion [employer] Phone: Luther, Mhpn Incoming Radiant Results From [employer] [place] - 05/01/2021 11:23 AM EDT EXAMINATION: 2 XRAY VIEWS OF THE RIGHT WRIST; 05/01/2021 11:11 am COMPARISON: None. HISTORY: ORDERING SYSTEM PROVIDED HISTORY: Seropositive rheumatoid arthritis (HCC) FINDINGS: The bones and joints are unremarkable without definite fracture, dislocation, significant degenerative/erosive change, radiopaque foreign body or bony destructive lesion IMPRESSION: Unremarkable two-view right wrist series [employer] Phone: [employer] Phone: XR WRIST RIGHT (MIN 3 VIEWS) [...] Ebenezer Pepe MD 03/01/21 Final result Normal [facility] XR WRIST RIGHT (MIN 3 VIEWS) Ordered By: Apryl Tucker on 03-01-2021 Unremarkable right wrist. [employer] Phone: EXAMINATION: 3 XRAY VIEWS OF THE [...] degenerative findings. No appreciable soft tissue abnormality. [employer] Phone: Luther, Mhpn Incoming Radiant Results From [employer] [place] - 03/01/2021 7:52 PM EDT EXAMINATION: 3 [...] soft tissue abnormality. IMPRESSION: Unremarkable right wrist. [facility] Work Phone: [facility] Work Phone: XR KNEE RIGHT (1-2 VIEWS)on [...] CNP - (authorizing provider) Final result Normal [facility] XR KNEE RIGHT (3 VIEWS)on Joint effusion witho ut acute osseous abnormality. [place] EXAMINATION: THREE XRAY VIEWS OF THE [...] effusion. The periarticular soft tissues are unremarkable. [place], [place] Luther, Mhpn Incoming Radiant Results From [employer] - 09/04/2019 6:08 PM EST EXAMINATION: THREE [...] IMPRESSION: Joint effusion without acute [facility]seous abnormality. [facility] (MIN [facility] VIEWS)on 05-12-2019 No acute osseous abnormality. [facility] EXAM[facility]ATION: THREE XRAY VIEWS OF THE LEFT HAND 05/12/2019 12:22 pm COMPARISON: November 12, 2018 HISTORY: ORDERING SYSTEM PROVIDED HISTORY: pain TECHNOLOGIST PROVIDED HISTORY: pain FINDINGS: There is no evidence of acute fracture. There is normal alignment. No acute joint abnormality. No focal osseous lesion. No focal soft tissue abnormality. [facility] Luther, Mhpn Incoming Radiant Results From [employer] - 05/12/2019 12:48 PM EDT EXAMINATION: THREE XRAY VIEWS OF THE LEFT HAND 05/12/2019 12:22 pm COMPARISON: November 12, 2018 HISTORY: ORDERING SYSTEM PROVIDED HISTORY: pain TECHNOLOGIST PROVIDED HISTORY: pain FINDINGS: There is no evidence of acute fracture. There is normal alignment. No acute joint abnormality. No focal osseous lesion. No focal soft tissue abnormality. IMPRESSION: No acute osseous abnormality. [facility] [place] MRI BRAIN WO CONTRASTon [...] Tiffanie Hughes MD 04/24/19 Final result Normal [facility] MRI CERVICAL SPINE WO CONTRA STon [...] Tiffanie Hughes MD 04/24/19 Final result Normal [facility] Vital Signs Date Time Vital Sign Value Performing Clinician Robson henry 05-15-2024 14:12-0400 Blood Pressure Location [employer] [facility] 05-15-2024 14:12-0400 Diastolic blood pressure 76 mm[Hg] David Despegar[employer]L [facility] 05-15-2024 14:12-0400 Heart rate 76 /min [employer] [facility] 05-15-2024 14:12-0400 Respiratory rate 16 /min David Despegar[employer] [facility] 05-15-2024 14:12-0400 Systolic blood pressure 118 mm[Hg] David Des[employer]gar[employer] [facility] 09-13-2021 08:22-0500 Diastolic blood pressure 86 mm[Hg] Francis Marleyjeremy DO Work Phone: [facility] 09-13-2021 08:22-0500 Systolic blood pressure 147 mm[Hg] Francis Beachrov DO Work Phone: [facility] 09-13-2021 08:20-0500 Body mass index (BMI) [Ratio] 37.2 kg/m2 Francis Beachrov DO Work Phone: [facility] 09-13-2021 08:20-0500 Body temperature 97.39 [degF] Francis Beachrov DO Work Phone: [facility] 09-13-2021 08:20-0500 Body weight 95.25 kg Francis Beachrov DO Work Phone: [facility] 09-13-2021 08:20-0500 Heart rate 85 /min Francis Beachrov DO Work Phone: [facility] 09-13-2021 08:20-0500 Respiratory rate 16 /min Francis Pinto DO Work Phone: [facility] 09-13-2021 08:20-0500 SaO2% (BldA) [Mass fraction] 99 % Francis Beachrojeremy DO Work Phone: [facility] 03-01-2021 18:28-0400 Diastolic blood pressure 96 mm[Hg] [employer] Work Phone: D[facility]ra Work Phone: 03-01-2021 18:28-0400 Systolic blood pressure 151 mm[Hg] Clari Mikala Work Phone: [facility] Work Phone: 03-01-2021 18:26-0400 Body temperature 98.71 [degF] [employer] Work Phone: [facility]ra Work Phone: 03-01-2021 18:26-0400 Heart rate 70 /min [employer] Work Phone: D[facility]ra Work Phone: 03-01-2021 18:26-0400 Respiratory rate 18 /min Clari Glasgowhmann Work Phone: [facility] Work Phone: 03-01-2021 18:26-0400 SaO2% (BldA) [Mass fraction] 98 % Clari Glasgowhmann Work Phone: D[facility]ra Work Phone: 09-06-2019 20:00-0500 Body Temperature 97.9 [degF] Oscar Elepath [facility] [place] 09-06-2019 20:00-0500 BP Diastolic 100 mm[Hg] Oscar [employer] [facility] , [place] 09-06-2019 20:00-0500 BP Systolic 154 mm[Hg] Oscar Claytonimes [employer] [facility] , [place] 09-06-2019 20:00-0500 Pulse (Heart Rate) 89 /min [facility] [place] 09-06-2019 20:00-0500 Pulse Oximetry 97 % Oscar [employer] [facility] , [place] 09-06-2019 20:00-0500 Respiratory Rate 19 /min Oscar ClaytonAra Labs [facility] 09-04-2019 17:38-0500 BMI (Body Mass Index) 36.49 kg/m2 David Huitronpatrick [facility], [place] 09-04-2019 17:38-0500 Body Temperature 98.2 [degF] David Perez [facility] [employer] [facility], [place] 09-04-2019 17:38-0500 Body weight 93.44 kg David Huitronpatrick [facility], [place] 09-04-2019 17:38-0500 BP Diastolic 94 mm[Hg] David Perez [facility], [place] 09-04-2019 17:38-0500 BP Systolic 142 mm[Hg] David Palmerk [facility], [place] 09-04-2019 17:38-0500 Pulse (Heart Rate) 87 /min David Carter [facility], [place] 09-04-2019 17:38-0500 Pulse Oximetry 99 % David Perez [facility], [place] 09-04-2019 17:38-0500 Respiratory Rate 14 /min David Carter [facility], [place] 05-12-2019 12:15-0400 Body Temperature 98.01 [degF] Clari [place] [facility] [place] 05-12-2019 12:14-0400 BP Diastolic 85 mm[Hg] [facility] [place] 05-12-2019 12:14-0400 BP Systolic 152 mm[Hg] [facility] [place] 05-12-2019 12:14-0400 Pulse (Heart Rate) 87 /min [facility] [place] 05-12-2019 12:14-0400 Pulse Oximetry 96 % Clari [place] [facility] , [place] 05-12-2019 12:14-0400 Respiratory Rate 16 /min [facility] [place] Encounters Encounter Date Encounter Type Care Provider Facility Start: 10-22-2024 End: 10-22-2024 ambulatory Lee Maradiaga MD Facility: [facility] Start: 10-15-2024 End: 10-15-2024 ambulatory Lee Maradiaga MD Facility: [facility] Start: 07-18-2024 End: 07-18-2024 Mitchell Gonzalez FORK REPAIRER Work Phone: [facility] Start: 07-18-2024 End: 07-18-2024 Bamboo flowsnabil Gonzalez FORK REPAIRER Work Phone: [facility] Start: 07-18-2024 End: 07-18-2024 Office outpatient visit 25 minutes Ruth Ann Gonzalez FORK REPAIRER Work Phone: [facility] Comment on above: Low back pain, unspe cified back pain laterality, unspecified chronicity, unspecified whether sciatica present (Primary Dx); Bilateral sciatica Start: 07-18-2024 End: 07-18-2024 ambulatory RUTH ANN B APLING Not Available Start: 05-15-2024 End: 05-15-2024 ambulatory ISABELLA KAPLAN Facility: [place] Start: 05-15-2024 End: 05-15-2024 Patient encounter procedure David DIAMOND [facility] Start: 01-24-2024 End: 01-24-2024 [...] Available Start: 08-22-2023 ambulatory ISABELLA KAPLAN Facility: [place] Start: 08-12-2023 [facility] Start: 07-06-2022 End: 07-07-2022 ambulatory ISABELLA KAPLAN Facility:[facility] Start: 05-21-2022 End: 05-22-2022 ambulatory ISABELLA KAPLAN Facility:[facility] Start: 03-19-2022 End: 03-27-2022 ambulatory ISABELLA KAPLAN Facility:[facility] Start: 02-22-2022 End: 02-23-[address] APRYL RIOS Facility:[facility] Start: 09-23-2021 End: 09-23-2021 Emergency department patient visit KATE OLIVIER [facility] Start: 09-21-2021 End: 09-21-2021 Emergency department patient visit CLARI DUMONT [facility] Start: 09-13-2021 End: 09-13-2021 Emergency department patient visit FRANCIS PINTO [facility] Start: 09-13-2021 End: 09-13-2021 Emergency department patient visit Francis Pinto DO Work Phone: [facility] ED Comment on above: Sprain of right foot , initial encounter (Primary Dx); Sprain of left ankle, unspecified ligament, initial encounter Start: 05-08-2021 End: 05-11-2021 ambulatory QUINCY INTERIANO [facility] Start: 05-08-2021 End: 05-10-2021 Subsequent hospital visit by physician Karoline Meek Dr Room [facility] Comment on above: Microscopic hematuri a; Flank pain; Hydronephrosis with ureteral calculus Start: 05-01-2021 End: 05-04-2021 ambulatory [facility]O [facility] Start: 05-01-2021 End: 05-03-2021 Subsequent hospital visit by physician Karoline Meek Dr Room [facility] Comment on above: Seropositive rheumat oid arthritis (HCC) Pain Start: 03-01-2021 End: 03-01-2021 Emergency department patient visit FALCON Bacilio [facility] Start: 03-01-2021 End: 03-01-2021 Emergency department patient visit [facility] Work Phone: [facility] ED Comment on above: Strain of right wris t, initial encounter (Primary Dx) Start: 11-07-2020 End: 11-10-2020 ambulatory SHAHRZAD ZENG [facility] Start: 11-07-2020 End: 11-09-2020 Subsequent [facility] visit by [facility] Start: 09-06-2019 End: 09-06-2019 Emergency department patient visit Oscar Zuniga Work Phone: [facility] ED Comment on above: Sprain of collateral ligament of right knee, initial encounter (Primary Dx) Start: 09-04-2019 End: 09-04-2019 Emergency department patient visit David Perez [facility] ED Comment on above: Injury of right knee , initial encounter (Primary Dx); Effusion of right knee joint Start: 05-12-2019 End: 05-12-2019 [facility] Comment [facility] above: Contusion of left coles nd including fingers, initial encounter (Primary Dx) Start: 04-20-2019 End: 04-20-2019 Emergency department patient visit JEAN Carter [facility] Procedures Date Procedure Procedure Detail Performing [...] DTaP/Tdap/Td vaccine (2 - Td or Tdap) [facility] Start: 11-28-2027 DTaP/Tdap/Td vaccine (2 - Td) DTaP/Tdap/Td vaccine (2 - Td) [facility] [place], [place] Start: 08-01-2024 End: 08-01-2024 Patient encounter procedure 08/01/2024 8:00 AM EDT Office Visit [facility] [address] [place] [address] Ruth Ann Gonzalez, FORK REPAIRER [address] [place] [address] [facility] Start: 07-18-2024 End: 07-18-2024 Patient encounter procedure 07/18/2024 8:45 AM EDT Office Visit [facility] [address] [facility] [address] [place] [address] Ruth Ann Gonzalez, FORK REPAIRER [address] [facility] [address] [place] [address] Low back pain, unspecified back pain laterality, unspecified chronicity, unspecified whether sciatica present (Primary Dx) [facility] Comment on above: Low back pain, unspe cified back pain laterality, unspecified chronicity, unspecified whether sciatica present (Primary Dx) Start: 11-25-2021 End: 11-25-2021 Patient encounter procedure 11/25/2021 Office Visit Rheumatology Fatuma Sanchez MD [address] [place] [address] [id number] [facility] Start: 06-24-2021 End: 06-24-2021 Patient encounter procedure 06/24/2021 Office Visit Rheumatology Fatuma Sanchez MD [address] [place] [id number] [phone] [facility] Start: 06-03-2021 Influenza vaccination [facility] Start: 2021 Lipid panel Lipid screen [facility] Start: 06-03-2020 Influenza vaccination Flu vaccine (# 1) [place], [place] Start: 06-03-2019 Influenza vaccination Flu vaccine (# 1) [place], [place] Start: 2016 Diabetes screen Diabetes screen [facility] Start: 2000 DTaP/Tdap/Td vaccine (1 - Tdap) DTaP/Tdap/Td vaccine (1 - Tdap) [place] Start: 1996 HIV screen HIV screen [place], [place] Start: 1996 HIV screening HIV screen [facility] Start: 1994 Varicella Vaccine (1 of 2 - 13+ 2-dose series) Varicella Vaccine (1 of 2 - 13+ 2-dose series) [place], [place] Start: 1993 COVID-19 Vaccine (1) COVID-19 Vaccin e (1) [facility] Start: 1992 DTaP/Tdap/Td vaccine (1 - Tdap) DTaP/Tdap/Td vaccine (1 - Tdap) [place] Start: 1982 Varicella Vaccine (1 of 2 - 2-dose childhood series) Varicella Vaccine (1 of 2 - 2-dose childhood series) [facility] Start: 1981 Hepatitis C screening Hepatitis C sc reen [facility] End: 05-12-2019 Splint application Splint application Procedures STAT One Time for 1 Occurrences starting 05/12/2019 until 05/12/2019 [place], [place] Comment on above: One Time for 1 Occur rences starting 05/12/2019 until 05/12/2019 Immunizations Immunization Date Immunization Notes Care Provider Fa [facility] 10-22-2019 influenza, injectable, quadrivalent, preservative free Ruth Ann Gonzalez NP Work Phone: [facility] 11-28-2017 tetanus toxoid, reduced diphtheria toxoid, and acellular pertussis vaccine, adsorbed Ruth Ann Gonzalez NP Work Phone: [facility] 07-14-2010 influenza virus vaccine, whole virus Clari Mikala [place], [place] NEGATED: Highlighted row has not occurred!05-11-2021 SARS-CoV-2 (COVID-19) Ad26 vaccine, recombinant David NILL [facility] Payers Date Payer Category Payer Unknown 2024 [place] Blue Shield [facility] [id number] 2024 Unknown [id number] 2022 Medicaid [id number] 2020 Unknown [id number] 2019 Unknown [id number] 2019 Unknown [facility] [id number] xxxxxxxxx 2019-Present [address] [address] [place] [address] xxxxxxxxx [id number] 1981 Unknown [id number] 1981 Unknown [id number] 173 1981 Unknown [id number] 1981 Unknown [id number] 173 1981 Unknown [id number] 173 1981 Unknown [id number] 173 1981 Unknown [id number] 173 1980 Unknown [id number] 2.16840.1.177148.3.579.2. 173 1980 Unknown [id number] 2.16840.1.116614.3.579.2. 173 1980 Unknown [id number] 2.16.840.1.958399.3.579.2. 173 1981 Unknown [id number] 2.16.840.1.453160.3.579.2. 173 1981 Unknown [id number] 2.16.840.1.161980.3.579.2. 173 1981 Unknown [id number] 2.16.840.1.714997.3.579.2. 173 1981 Unknown [id number] 2.16.840.1.363907.3.579.2. 173 1981 Unknown [id number] 2.16.840.1.842281.3.579.2. 173 1981 Unknown [id number] 2.16.840.1.041973.3.579.2. 173 1981 Unknown [id number] 2.16840.1.353348.3.579.2. 173 1981 Unknown [id number] 2.16.840.1.383835.3.579.2. 173 1981 Unknown [id number] 2.16.840.1.895213.3.579.2. 173 1981 Unknown [id number] 2.16.840.1.389246.3.579.2. 173 1981 Unknown [id number] 2.16840.1.505103.3.579.2. 593 1981 Unknown [id number] 2.16.840.1.699858.3.579.2. 593 1981 Unknown [id number] 2.16.840.1.834814.3.579.2. 593 1981 Unknown [id number] 2.16.840.1.548681.3.579.2. 593 1981 Unknown [id number] 2.16.840.1.972742.3.579.2. 727 1981 Unknown [id number] 2.16.840.1.315613.3.579.2. 727 1981 Unknown [id number] 2.16.840.1.873161.3.579.2. 9 1981 Unknown [id number] 2.16.840.1.623842.3.579.2. 1259 1981 Unknown [id number] 2.16.840.1.213275.3.579.2. 9 1981 Unknown [id number] 2.16.840.1.201246.3.579.2. 1259 1981 Unknown [id number] 2.16.840.1.543052.3.579.2. 9 1981 Unknown [id number] 2.16.840.1.028716.3.579.2. 9 1981 Unknown [id number] 2.16.840.1.949732.3.579.2. 9 1981 Unknown [id number] 2.16.840.1.287239.3.579.2. 9 1981 Unknown [id number] 2.16.840.1.244538.3.579.2. 9 1981 Unknown [id number] 2.16.840.1.481614.3.579.2. 196 1981 Unknown [id number] 2.16.840.1.525442.3.579.2. 196 1959 Unknown [id number] 1.2.840.907206.1.13.239.2. 7.3.552549.315 1959 Unknown [id number] Social History Date Type Detail Facility Start: 09-04-2019 End: 02-10-2023 Tobacco smoking status NVIS Never smoker [facility] Start: 09-04-2019 End: 03-27-2021 Alcohol intake Current non-drinker of alcohol (finding) [place], [place] Start: 10-16-2017 Alcohol Comment very reare [place], [place] Start: 1980 Sex Assigned At [facility] Start: 05-12-2019 End: 01-11-2024 Alcohol intake No [facility] Kuld[facility] Start: 09-06-2019 End: 02-10-2023 Tobacco use and exposure [facility] Exposure to SARS-CoV -2 (event) Not sure Dydra Start: 03-27-2021 Alcohol Comment very rare Emma parikh Work Phone: [facility] Start: 01-11-2024 End: 07-18-2024 Alcoholic beverage intake Current drinker of alcohol (finding) [facility] Start: 01-11-2024 End: 07-18-[address] [facility] Start: 02-10-2023 Alcohol Comment caffeine intak e: 3-4 cups per day, soda [facility] Start: 10-03-2023 Gender identity Identifies as male gender (finding) [facility] Functional Status Date Assessment Result Facility 05-15-2024 Functional Status N/A [facility] Clinical Notes 09-13-2021 to 07-18-2024 Ruth Ann [...] has a new job working at a [employer], 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 [place]: XR NOMS 11/28/23, [...] activities as tolerated documented in this encounter [facility] 05-15-2024 Note General Surgery Offi [...] Procedure/Surgica (more content not included)... [facility] Comment on above: Result Comment: Elec tronically Signed By: DARA FARIAS, David Merrill.br\Date and Time Signed: 05/15/24 14:59 EDT 11-11-2023 Note TC to Home number fo r FORK REPAIRER referral for: Elevated Rheumatoid Factor Referral in legal mediator Spoke with son and provider Rheum clinic call back number. Son states he will give his father the message to return call. [facility] 07-06-2022 Note CONSULTATION CONSULTATION DATE: 07/06/2022 [...] his work. 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 He has low back pain 3/10. The [...] CC: Chen Kaplan CNP [facility] 09-13-2021 Hospital Discharge instructions Francis Pinto, - 09/13/2021 Return to the Emergency Department immediately if you develop worsening pain, numbness, weakness , or you have any other concerns. Please follow up with your orthopaeidc doctor in 2-3 days. Ice, elevate Use crutches The following attachments cannot be sent through Care Everywhere.Ankle Sprain ([place])documented in this encounter [employer] Phone: Evaluation + Plan note No data available for this section [facility] [place] [employer] Evaluation note Diagnosis Strain of right wrist, initial encounter- Primary documented in this encounter [employer] Phone: evaluation note* Diagnosis Seropositive rheumatoid arthritis (HCC) Rheumatoid arthritis documented in this encounter [employer] Phone: evaluation note* Diagnosis Pain Generalized pain documented in this encounter [employer] Phone: evalsywxbd note* Diagnosis Microscopic hematuria Flank pain Abdominal pain, unspecified site Hydronephrosis with ureteral calculus Calculus of ureter documented in this encounter [employer] Phone: evaluation note* Diagnosis Sprain of right foot, initial encounter- Primary Sprain of left ankle, unspecified ligament, initial encounter documented in this encounter [employer] Phone: evaluation note* Diagnosis Low back pain, unspecified back pain laterality, unspecified chronicity, unspecified whether sciatica present- Primary Bilateral sciatica Sciatica documented in this encounter [facility] Attachments The following attachments cannot be sent through Care Everywhere. * Strain or Sprain ([place]) [facility] Work Phone: Hospital Discharge instructions No data available for this section [facility] [place] Progress note No data available for this section [facility] [place] Summary Purpose Family History No Family History Records FoundNo Family History Records FoundNo Family History Records FoundNo Family History Records FoundNo Family History Records Found No data available for this section No Family History Records FoundNo Family History Records FoundNo Family History Records Found Advance Directives No Advanced Directives Records FoundDocuments on File Type Date Recorded Patient Drum Sander Offbearer Expl anation Advance Directives and Living Will Power of Dye Jig Operator Documents on File Type Date Recorded Patient Drum Sander Offbearer Expl anation ACP-Advance Directive ACP-Power of Dye Jig Operator Assessments Diagnosis Injury of right knee, [...] sent through Care Everywhere. * Finger: Bruises ([place]qi) documented in this encounter* Attachments The following attachments cannot be sent through Care Everywhere. * Knee Sprain ([place]) documented in this encounter Additional Source Comments (unrecognized sect ion and content) No Status Records FoundNo Status Records FoundNo Status Records FoundNo Status Records FoundNo Status Records FoundNo Status Records FoundNo Status Records FoundNo Status Records Found INFORMATION SOURCE (unrecogn ized section and content) DATE CREATED AUTHOR 04/26/2019 [facility] DATE CREATED AUTHOR AUTHOR'S ORGANIZ ATION 09/23/2021 [facility] DATE CREATED AUTHOR AUTHOR'S ORGANIZ ATION 02/16/2023 [facility] DATE CREATED AUTHOR AUTHOR'S ORGANIZ ATION 08/14/2023 [facility] DATE CREATED AUTHOR AUTHOR'S ORGANIZ ATION 11/13/2023 [facility] DATE CREATED AUTHOR AUTHOR'S ORGANIZ ATION 05/16/2024 Simon Christiansen [facility] DATE CREATED AUTHOR AUTHOR'S ORGANIZ ATION 07/20/2024 [facility] DATE CREATED AUTHOR AUTHOR'S ORGANIZ ATION 10/30/2024 [facility] Reason for Visit (unrecogniz ed section and [...] Care Teams (unrecognized sec tion and content) Varnish Thinner Relationship Specialty Start Date End Date Clari Dumont [address] [place] [address] PCP - General Nurse Practitioner 04/21/19 Varnish Thinner Relationship Specialty Start Date End Date Ac Schmid MD [address] [place] [phone] PCP - General Family Medicine 02/08/23 Isabella Kaplan MD [address] [place] [id number] Referring Physician Family Medicine 09/12/23 Varnish Thinner Relationship Specialty Start Date End Date Ac Schmid MD [address] [place] [phone] PCP - General Family Medicine 02/08/23 Isabella Kaplan MD [address] [place] [phone] Referring Physician Family Medicine 09/12/23 FOR RECORDS [...] BE BASED ON THE PRIMARY CLINICAL RECORDS. [facility]. provides no warranty or guarantee of the accuracy or completeness of information in this document.
--- NOTE | 2024-11-13 12:43 | MR_ITS ---
[place] [id number] Patient Name: ARIADNA MONTEIRO MRN: [id number] date: 1980 Sex: M Assigned Patient Location: MRI Current Patient Location: MRI Accession/Order Number: [id number] Exam Date: 11/13/2024 13:00 Report Date: 11/20/2024 07:27 At the request of: RODRIGUEZ KAPLAN Procedure: MR pelvis wo/w con EXAMINATION: MR pelvis wo/w con HISTORY: abnormal MRI COMPARISON: CT scan 09/30/2024 TECHNIQUE: A complete multi-planar examination was performed to optimize visualization of suspected pathology. Images were obtained both before and after administration of intravenous Dotarem. FINDINGS: PROSTATE: Mildly heterogeneous prostate gland normal in size. LYMPH NODES: Normal. No adenopathy. BLADDER: Normal. No focal wall thickening or mass. BONES: Lobular heterogeneous expansile 8.5 x 5.5 x 8.0 cm mass identified replacing the left sacrum OTHER: No postcontrast imaging through the mass on the provided images MR/MR pelvis wo/w con IMPRESSION: 8.5 cm sacral mass. Malignancy is favored. This is significantly increased in size from the prior CT exam Electronically authenticated by: MICHAEL RAE Date: 11/20/2024 07:27
--- OUTSIDE RECORDS SUMMARY | 2024-11-13 12:45 | XMS_ITS | CCD ---
Author Organization [facility] Informat ion Partnership [facility] Care Team Providers Care Cage Supervisor Name Role Phone JEAN HARPER Primary Care Unavailable KENYATTA KEN Attending Unavailable ARTEMIO CHAVIRA Consulting Unavailable Clari Dumont Primary Care Provider Clari Dumont Primary Care Provider Clari Dumont Primary Care Provider ISABELLA KAPLAN Primary Care Unavailable BEN ., DR YULI Schmidt Attending Unavailable BEN ., DR YULI Schmidt Consulting Unavailable BEN ., DR YULI Schmidt Admitting Unavailable ISABELLA KAPLAN Primary Care Unavailable YOANA ., DR PEARSON Referring Unavailable YOANA ., DR PEARSON Attending Unavailable YOANA ., DR PEARSON Consulting Unavailable YAONA ., DR PEARSON Admitting Unavailable SYKESTON, DR MICHAEL Carr Consulting Unavailable BLANCA, DR APRYL Loera Consulting Unavailable BLANCA, DR APRYL Loera Consulting Unavailable ISABELLA KAPLAN Attending Unavailable ISABELLA KAPLAN Admitting Unavailable CLARI DUMONT Primary Care Unavailable ISABELLA KAPLAN Consulting Unavailable EUSEBIO ISABELLA Admitting Unavailable ISABELLA KAPLAN Attending Unavailable ISABELLA KAPLAN Primary Care Unavailable Sara DDRoxana, Rangeleen Attending Unavailable CLARI DUMONT Primary Care Physician ISABELLA KAPLAN Referring Unavailable David DIAMOND Attending Unavailable ISABELLA KAPLAN Referring Unavailable David DIAMOND Attending Unavailable Ac Schmid MD Primary Care Provider Isabella Kaplan MD Unavailable RUTH ANN GONZALEZ Attending Unavailable RUTH ANN GONZALEZ Referring Unavailable RUTH ANN GONZALEZ Referring Unavailable RUTH ANN GONZALEZ Attending Unavailable RUTH ANN GONZALEZ Attending Unavailable WILL SANTANA Attending Unavailable RUTH ANN GONZALEZ Attending Unavailable RUTH ANN GONZALEZ Referring Unavailable RUTH ANN GONZALEZ Attending Unavailable Ashwini FARIAS, Lee Reyes Attending Unavailable Ashwini FARIAS, Lee Reyes Attending Unavailable Clari Brasher APRN, CNP Primary Care Provid er CLARI DUMONT Primary Care Unavailable SHYAM PETERSON Attending Unavailable Allergies Allergy Classification Reported Allergen(s) Allergy Type Date of Onset Reaction(s) Facility Opioid Agonists (13 sources) traMADol Drug Allergy 6 [facility] Penicillins (antibiotic) (13 sources) Penicillins Drug Allergy 1 [facility] (7 sources) Penicillins; Translations: [penicillins] Propensity to adverse reactions to drug 1 Rash, Eruption of skin (disorder) [place] (10 sources) traMADol; Translations: [tramadol] Drug Allergy 6 Rash, Eruption of skin (disorder) [place] (2 sources) Penicillin; Translations: [penicillin] Drug Allergy 8 [facility] Rep[facility] (2 sources) traMADol; Translations: [Ultram] Drug Allergy [facility] Rep[facility] (3 sources) Naproxen Drug Allergy 3 Rash [facility] (3 sources) Penicillins Drug Allergy 3 Hives [facility] (1 source) Penicillins Propensity to adverse reactions to drug 1 Rash [facility] Medications Current Medications Medication Drug Class(es) Dates Sig (Normalized) Sig (Original) acetaminophen 500 mg oral tablet (19 sources) Start: 01-08-2011 take 1 tablet by mouth every four hours as needed acetaminophen (TYLENOL) 500 MG tablet Take 500 mg by mouth every 4 hours as needed. 01/08/2011 Active allopurinol 100 mg oral tablet [...] tablet (20 sources) Nonsteroidal Anti-inflammatory Drug Start: 03-01-2021 ibuprofen 600 MG tablet 600 mg 11/27/2023 Active Ibuprofen (IBU P O) IBU Active [...] 09/06/2019 Active meloxicam 15 mg oral tablet (14 sources) Nonsteroidal Anti-inflammatory Drug Start: 03-27-2021 take [...] BID, # 20 cap(s), Refills(s) 0, Pharmacy: [id number], 160, cm, 05/04/21 15:08:00 EDT, Height/Length Dosing, 92, kg, 05/04/21 15:08:00 EDT, Weight Dosing Start Date: 05/04/21 Status: Ordered 1 ml triamcinolone acetonide 40 mg/ml injection (14 sources) Corticosteroid Start: 03-27-2021 triamcinolone acetonide (KENALOG-40) injection 40 mg Start: 03-27-2021 triamcinolone acetonide (KENALOG-40) injection 40 [...] / oxyCODONE hydrochloride 5 mg oral tablet (3 sources) Opioid Agonist Start: 11-08-2024 End: 11-08-2024 take 1 tablet by mouth every twenty-four hours 1 tablet, Oral, ONCE, 1 dose, On Bri 11/08/24 at 1800, Maximum dose of acetaminophen is 4000 mg from all sources in 24 hours. Start: 11-08-2024 End: 11-11-2024 oxyCODONE-acetaminophen (PER COCET) 5-325 MG per tablet Indications: Sacral lesion Take 1 tablet by mouth every 6 hours as needed for Pain for up to 3 days. Intended supply: 3 days. Take lowest dose possible to manage pain Max Daily Amount: 4 tablets 12 tablet 11/08/2024 11/11/2024 Active Start: 09-04-2019 End: 09-04-2019 oxyCODONE-acetaminophen (PER COCET) 5-325 MG per tablet 2 tablet 200 [...] 400 mg oral tablet (1 source) Nonsteroidal Anti-inflammatory Drug Start: 09-06-2018 End: 05-12-2019 take 1 tablet by mouth twice daily etodolac (LODINE) 400 MG tablet Take 1 tablet by mouth 2 times daily 30 tablet 0 09/06/2018 05/12/2019 Discontinued (LIST CLEANUP) iopamidol (ISOVUE-370) 76 % injection 75 mL (1 source) Start: 11-08-2024 End: 11-08-2024 take 1 dose intravenously once 75 mL, IntraVENous, IMG ONCE PRN, 1 dose, Starting on Bri 11/08/24 at 1624, Until Bri 11/08/24 at 1626, Other methocarbamol 500 mg oral tablet (2 sources) Muscle Relaxant Start: 11-08-2024 End: 11-08-2024 take 1 dose by mouth once 1,000 mg, Oral, Once, 1 dose, On Bri 11/08/24 at 1800 Start: 11-08-2024 End: 11-15-2024 take 2 tablets by mouth four times daily methocarbamol (ROBAXIN) 500 MG tablet Take 2 tablets by mouth 4 times daily for 7 days 56 tablet 11/08/2024 11/15/2024 Active Problems Active Problems Problem Classification Problem Date [...] Translations: [Essential hypertension] Onset: 2 08-26-2023 Chronic Genitourinary symptoms and ill-defined conditions (3 sources) [...] Arthritis 05-04-2021 Chronic Other connective tissue disease (15 sources) Weakness of right hand; Translations: [Other [...] Spondylosis; intervertebral disc disorders; other back problems (12 sources) Low back pain; Translations: [Low back pain] Onset: 3 02-14-2023 Episodic Unclassified (4 sources) Injury of right knee; Translations: [Injury of right knee, initial encounter] Onset: 9 09-04-2019 Unclassified (3 sources) LOW BACK PAIN, UNSPECIFIED; Translations: [LOW BACK PAIN, UNSPECIFIED] Onset: 2 Past or Other Problems Problem Classification Problem Date Documented Da te Episodic/Chronic Gastrointestinal hemorrhage (20 sources) Rectal hemorrhage; Translations: [Hemorrhage of anus and rectum] Onset: 01-12-2011 01-12-2011 Episodic Open wounds of head; neck; and trunk (19 sources) Fracture of tooth ; Translations: [Fracture of tooth (traumatic), initial encounter for closed fracture] Onset: 09-06-2018 09-06-2018 Episodic Other connective tissue disease (3 sources) Peroneal tendinitis of right lower limb; Translations: [Peroneal tendinitis, right leg] Onset: 02-14-2023 02-14-2023 Episodic Other gastrointestinal disorders (19 sources) Diarrhea; Translations: [Diarrhea, unspecified] Onset: 01-12-2011 01-12-2011 Episodic Other injuries and conditions due to external causes (15 sources) Injury of right knee; Translations: [Unspecified injury of right lower leg, initial encounter] Onset: 09-04-2019 09-04-2019 Episodic Other non-traumatic joint disorders (15 sources) Effusion of right knee joint; Translations: [...] limb] Onset: 02-14-2023 Episodic Superficial injury; contusion (20 sources) Contusion of face; Translations: [Contusion of hand] Onset: 09-06-2018 09-06-2018 Episodic Unclassified (1 source) LOW BACK PAIN, UNSPECIFIED; Translations: [LOW BACK PAIN, UNSPECIFIED] Onset: 07-06-2022 Results Test Name Value Interpretation Reference Range Facility CT ABDOMEN PELVIS W IV CONTR Moises 11-12-2024 CT ABDOMEN PELVIS W IV CONTRAST EXAMINATION: CT OF THE ABDOMEN AND PELVIS WITH CONTRAST, 11/08/2024 4:27 pm TECHNIQUE: CT of the abdomen and pelvis was performed with the administration of intravenous contrast. Multiplanar reformatted images are provided for review. Automated exposure control, iterative reconstruction, and/or weight based adjustment of the mA/kV was utilized to reduce the radiation dose to as low as reasonably achievable. COMPARISON: None HISTORY: ORDERING SYSTEM PROVIDED HISTORY: Left lower quadrant pain, low back pain. TECHNOLOGIST PROVIDED HISTORY: Left lower quadrant pain, low back pain Decision Support Exception - unselect if not a suspected or confirmed emergency medical condition->Emergency Medical Condition (MA) FINDINGS: Lower Chest: Patchy ground-glass attenuation lung bases favoring atelectasis. Organs: The liver, spleen, pancreas, gallbladder and adrenal glands are otherwise without acute focal abnormality. No biliary duct dilation. 2 mm nonobstructing left nephrolithiasis. No hydronephrosis or perinephric stranding. Bosniak type 1 renal cysts the largest measuring up to 3.0 cm. GI/Bowel: No dilated loops of bowel or bowel wall thickening. The appendix is normal. No free air. Pelvis: No pathologically enlarged adenopathy or free fluid. No bladder wall thickening. The prostate gland is unremarkable. Peritoneum/Retroperito neum: The aorta is normal in caliber. The celiac axis, SMA and JOAQUÍN are patent. The portal venous system is patent. No pathologically enlarged adenopathy. No ascites or drainable fluid collection. Bones/Soft Tissues: Two discrete sclerotic lesions within the right ilium the largest of which measures up to 1.2 cm. There is an indeterminate lytic expansile destructive lesion involving the mid to lower sacrum measuring approximately 6.8 x 6.3 x 7.6 cm. No other acute findings within the bones or soft tissues. IMPRESSION: 1. No acute intra-abdominal or pelvic abnormality. 2. Indeterminate 7.6 cm lytic expansile lesion involving the mid to lower sacrum suspicious for malignancy. Recommend tissue sampling. Additional MRI may be helpful for characterization. 3. Two discrete sclerotic lesions within the right ilium the largest of which measures up to 1.2 cm. Findings could reflect bone islands although metastatic disease cannot be excluded. 4. 2 mm nonobstructing left nephrolithiasis. Interpreted by: Catalina Perrin MD Signed by: Catalina Perrin MD 11/12/24 Final result Normal [facility] CBC with Auto Differentialon 11-08-2024 Basophils (Bld) [#/Vol] 0.06 10*3/uL [facility] Basophils/100 WBC (Bld) 1 % 0 - 2 % [facility] Eosinophils (Bld) [#/Vol] 0.11 10*3/uL [facility] Eosinophils/100 WBC (Bld) 1 % 1 - 4 % [facility] Erythrocyte distribution width (RBC) [Ratio] 12.7 % 11.8 - 14.4 % [facility] Hematocrit (Bld) [Volume fraction] 45.2 % 40.7 - 50.3 % [facility] Hemoglobin (Bld) [Mass/Vol] 15.6 g/dL 13.0 - 17.0 g/dL [facility] Immature granulocytes (Bld) [#/Vol] 0.09 10*3/uL [facility] Immature granulocytes/100 WBC (Bld) 1 % High 0 [facility] Interpretation and review of laboratory results Abnormal [facility] Lymphocytes/100 WBC (Bld) 27 % 24 - 43 % [facility] Lymphocytes/100 WBC (Bld) 2.19 % [facility] MCH (RBC) [Entitic mass] 31.1 pg 25.2 - 33.5 pg [facility] MCHC (RBC) [Mass/Vol] 34.5 g/dL 28.4 - 34.8 g/dL [facility] MCV (RBC) [Entitic vol] 90.2 fL 82.6 - 102.[address] [facility] Monocytes/100 WBC (Bld) 9 % 3 - 12 % [facility] Monocytes/100 WBC (Bld) 0.70 % [facility] Neutrophils/100 WBC (Bld) 61 % 36 - 65 % [facility] Nucleated RBC/100 WBC (Bld) [Ratio] 0.0 % 0.0 per 100 WBC [facility] Platelet mean volume (Bld) [Entitic vol] 8.2 fL 8.1 - 13.5 fL [facility] Platelets (Bld) [#/Vol] 155 10*3/uL [facility] RBC (Bld) [#/Vol] 5.01 10*6/uL 4.21 - 5.7 7 m/uL [facility] Segmented neutrophils/100 WBC (Bld) 5.09 % [facility] WBC other (Bld) [#/Vol] 8.2 [facility] CBC with Diffon 11-08-2024 Abs. Basophil 0.06 k/uL Normal 0.00-0.20 [facility] Comment on above: Performed By: #### C DP, LIP, CP #### [facility] [address] [place] [address] Business Administration Professor: Michael Meyer MD Abs.Imm.Granulocyte 0.09 k/uL Normal 0.00-0.30 [facility] Comment on above: Performed By: #### C JESSICA LIP, CP #### [address] [place] [address] Business Administration Professor: Michael Meyer MD Abs.Neutrophil (Seg) 5.09 k/uL Normal 1.50-8.10 [facility] Comment on above: Performed By: #### C DP LIP, CP #### [address] [place] [address] Business Administration Professor: Michael Meyer MD Basophils/100 WBC (Bld) 1 % Normal 0-2 [facility] Comment on above: Performed By: #### C DP LIP, CP #### [address] [place] [address] Business Administration Professor: Michael Meyer MD Eosinophils (Bld) [#/Vol] 0.11 10*3/uL Normal 0.00-0.44 [facility] Comment on above: Performed By: #### C DP LIP, CP #### [address] [place] [address] Business Administration Professor: Michael Meyer MD Eosinophils/100 WBC (Bld) 1 % Normal 1-4 [facility] Comment on above: Performed By: #### C DP, LIP, CP #### [address] [place] [address] Business Administration Professor: Michael Meyer MD Erythrocyte distribution width (RBC) [Ratio] 12.7 % Normal 11.8-14.4 [facility] Comment on above: Performed By: #### C DP, LIP, CP #### [facility] [address] [place] [address] Business Administration Professor: Michael Meeyr MD Hematocrit (Bld) [Volume fraction] 45.2 % Normal 40.7-50.3 [facility] Comment on above: Performed By: #### C DP, LIP, CP #### [address] [place] [address] Business Administration Professor: Michael Meyer MD Hemoglobin (Bld) [Mass/Vol] 15.6 g/dL Normal 13.0-17.0 [facility] Comment on above: Performed By: #### C DP LIP, CP #### [address] [place] [address] Business Administration Professor: Michael Meyer MD Immature granulocytes/100 WBC (Bld) 1 % High 0 [facility] Comment on above: Performed By: #### C DP LIP, CP #### [address] [place], [place] [address] Business Administration Professor: Michael Meyer MD Lymphocytes (Bld) [#/Vol] 2.19 10*3/uL Normal 1.10-3.70 [facility] Comment on above: Performed By: #### C DP LIP, CP #### [facility] [address] [place], [facility] Business Administration Professor: Michael Meyer MD Lymphocytes/100 WBC (Bld) 27 % Normal 24-43 [facility] Comment on above: Performed By: #### C DP, LIP, CP #### [facility] [address] [place] [id number] Business Administration Professor: Michael Meyer MD MCH (RBC) [Entitic mass] 31.1 pg Normal 25.2-33.5 [facility] Comment on above: Performed By: #### C GALO LOPEZ, CP #### [address] [place], [place] [id number] Business Administration Professor: Michael Meyer MD MCHC (RBC) [Mass/Vol] 34.5 g/dL Normal 28.4-34.8 [facility] Comment on above: Performed By: #### C JESSICA LIP, CP #### [address] [place] [address] Business Administration Professor: Michael Meyer MD MCV (RBC) [Entitic vol] 90.2 fL Normal 82.6-102.9 [facility] Comment on above: Performed By: #### C GALO LOPEZ, CP #### [address] [place] [address] Business Administration Professor: Michael Meyer MD Monocytes (Bld) [#/Vol] 0.70 10*3/uL Normal 0.10-1.20 [facility] Comment on above: Performed By: #### C GALO LOPEZ, CP #### [address] [place], [place] [id number] Business Administration Professor: Michael Meyer MD Monocytes/100 WBC (Bld) 9 % Normal 3-12 [facility] Comment on above: Performed By: #### C JESSICA LIP, CP #### [facility] [address] [place] [address] [place] [address] Business Administration Professor: Michael Meyer MD Neutrophil (Seg) 61 % Normal 36-65 [facility] Comment on above: Performed By: #### C JESSICA LIP, CP #### [address] [place], [place] [id number] Business Administration Professor: Michael Meyer MD NRBC Automated 0.0 per 100 WBC Normal 0.0 [facility] Comment on above: Performed By: #### C JESSICA LIP, CP #### [facility] [address] [place] [address] Business Administration Professor: Michael Meyer MD Platelet mean volume (Bld) [Entitic vol] 8.2 fL Normal 8.1-13.5 [facility] Comment on above: Performed By: #### C JESSICA LIP, CP #### [facility] [address] [place], [place] [id number] Business Administration Professor: Michael Meyer MD Platelets (Bld) [#/Vol] 155 10*3/uL Normal 138-453 [facility] Comment on above: Performed By: #### C GALO LOPEZ, CP #### [address] [place], [place] [id number] Business Administration Professor: Michael Meyer MD RBC (Bld) [#/Vol] 5.01 10*6/uL Normal 4.21-5.77 [facility] Comment on above: Performed By: #### C GALO LOPEZ, CP #### [address] [place] [address] Business Administration Professor: Michael Meyer MD WBC (Bld) [#/Vol] 8.2 10*3/uL Normal 3.5-11.3 [facility] Comment on above: Performed By: #### C JESSICA LIP, CP #### [address] [place] [address] Business Administration Professor: Michael Meyer MD CMPon 11-08-2024 Albumin [Mass/Vol] 4.4 g/dL 3.5 - 5.2 g/dL [facility] Albumin/Globulin [Mass ratio] 1.7 {ratio} 1.0 - 2.5 [facility] ALP [Catalytic activity/Vol] 88 U/L 40 - 129 U/L [facility] ALT [Catalytic activity/Vol] 33 U/L 10 - 50 U/L [facility] Anion gap [Moles/Vol] 9 mmol/L 9 - 16 mmol/L [facility] AST [Catalytic activity/Vol] 22 U/L 10 - 50 U/L [facility] Bilirubin [Mass/Vol] 1.0 mg/dL 0.00 - 1.20 mg/dL [facility] Calcium [Mass/Vol] 9.4 mg/dL 8.6 - 10. 4 mg/dL [facility] Chloride [Moles/Vol] 103 mmol/L 98 - 10 7 mmol/L [facility] CO2 [Moles/Vol] 27 mmol/L 20 - 31 mmol/L [facility] Creatinine [Mass/Vol] 1.0 mg/dL 0.70 - 1.20 mg/dL [facility] Kostas Armando Rate - PINF [facility] Comment on above: These results are not intended for use in patients <18 years of age. eGFR results are calculated without a race factor using the 2020 CKD-EPI equation. Careful clinical correlation is recommended, particularly when comparing to results calculated using previous equations. The CKD-EPI equation is less accurate in patients with extremes of muscle mass, extra-renal metabolism of creatine, excessive creatine ingestion, or following therapy that affects renal tubular secretion. Glucose [Mass/Vol] 78 mg/dL 74 - 99 mg/dL [facility] Potassium [Moles/Vol] 4.1 mmol/L 3.7 - 5.3 mmol/L [facility] Protein [Mass/Vol] 7.1 g/dL 6.6 - 8.7 g/dL [facility] Sodium [Moles/Vol] 139 mmol/L 136 - 145 mmol/L [facility] Urea nitrogen [Mass/Vol] 16 mg/dL 6 - 20 mg/dL [facility] Urea nitrogen/Creatinine [Mass ratio] 16 mg/mg 9 - 20 [facility] Comp Metabolic Profon 2024 Albumin [Mass/Vol] 4.4 g/dL Normal 3.5-5.2 [facility] Comment on above: Performed By: #### C DP, LIP, CP #### [facility] [address] [place], [place] [id number] Business Administration Professor: Michael Meyer MD Albumin/Glob Ratio 1.7 Normal 1.0-2.5 [facility] Comment on above: Performed By: #### C DP, LIP, CP #### [facility] [address] [place], [place] [id number] Business Administration Professor: Michale Meyer MD Alkaline Phos 88 U/L Normal 40-129 [facility] Comment on above: Performed By: #### C DP, LIP, CP #### [facility] [address] [place], [place] [id number] Business Administration Professor: Michael Meyer MD ALT [Catalytic activity/Vol] 33 U/L Normal 10-50 [facility] Comment on above: Performed By: #### C DP, LIP, CP #### [facility] [address] [place], [place] [id number] Business Administration Professor: Michael Meyer MD Anion gap [Moles/Vol] 9 mmol/L Normal 9-16 [facility] Comment on above: Performed By: #### C DP, LIP, CP #### [facility] [address] [place], [place] [id number] Business Administration Professor: Michael Meyer MD AST [Catalytic activity/Vol] 22 U/L Normal 10-50 [facility] Comment on above: Performed By: #### C DP, LIP, CP #### [facility] [address] [place], [place] [id number] Business Administration Professor: Michael Meyer MD Bilirubin [Mass/Vol] 1.0 mg/dL Normal 0.00-1.20 [facility] Comment on above: Performed By: #### C DP, LIP, CP #### [facility] [address] [place], [place] [id number] Business Administration Professor: Michael Meyer MD BUN/CRE Ratio 16 Normal 9-20 [facility] Comment on above: Performed By: #### C DP, LIP, CP #### [facility] [address] [place], [place] [phone] Business Administration Professor: Michael Meyer MD Calcium [Mass/Vol] 9.4 mg/dL Normal 8.6-10.4 [facility] Comment on above: Performed By: #### C DP, LIP, CP #### [facility] [address] [place] [address] Business Administration Professor: Michael Meyer MD Chloride [Moles/Vol] 103 mmol/L Normal 98-107 [facility] Comment on above: Performed By: #### C DP, LIP, CP #### [facility] [address] [place] [address] Business Administration Professor: Michael Meyer MD CO2 [Moles/Vol] 27 mmol/L Normal 20-31 [facility] Comment on above: Performed By: #### C DP, LIP, CP #### [facility] [address] [place], [place] [phone] Business Administration Professor: Michael Meyer MD Creatinine [Mass/Vol] 1.0 mg/dL Normal 0.70-1.20 [facility] Comment on above: Performed By: #### C DP, LIP, CP #### [facility] [address] [place], [place] [phone] Business Administration Professor: Michael Meyer MD GFR/1.73 sq M.predicted among non-blacks MDRD (S/P/Bld) [Vol rate/Area] mL/min/{1.73_m2} Normal >60 [facility] Comment on above: Result Comment: These results are not intended for use in patients <18 years of age. eGFR results are calculated without a race factor using the 2020 CKD-EPI equation. Careful clinical correlation is recommended, particularly when comparing to results calculated using previous equations. The CKD-EPI equation is less accurate in patients with extremes of muscle mass, extra-renal metabolism of creatine, excessive creatine ingestion, or following therapy that affects renal tubular secretion. Performed By: #### C DP LIP, CP #### [facility] [address] [place], [place] [id number] Business Administration Professor: Michael Meyer MD Glucose [Mass/Vol] 78 mg/dL Normal 74-99 [facility] Comment on above: Performed By: #### C DP LIP, CP #### [facility] [address] [place], [place] [id number] Business Administration Professor: Michael Meyer MD Potassium [Moles/Vol] 4.1 mmol/L Normal 3.7-5.3 [facility] Comment on above: Performed By: #### C JESSICA LIP, CP #### [address] [place], [place] [id number] Business Administration Professor: Michael Meyer MD Protein [Mass/Vol] 7.1 g/dL Normal 6.6-8.7 [facility] Comment on above: Performed By: #### C JESSICA LIP, CP #### [address] [place], [place] [phone] Business Administration Professor: Michael Meyer MD Sodium [Moles/Vol] 139 mmol/L Normal 136-145 [facility] Comment on above: Performed By: #### C JESSICA LIP, CP #### [address] [place], [place] [id number] Business Administration Professor: Michael Meyer MD Urea nitrogen [Mass/Vol] 16 mg/dL Normal 6-20 [facility] Comment on above: Performed By: #### C JESSICA LIP, CP #### [facility] [address] [place], [place] [id number] Business Administration Professor: Michael Meyer MD Lipaseon 11-08-2024 Lipase [Catalytic activity/Vol] 55 U/L 13 - 60 U/L [facility] Lipase [Catalytic activity/Vol] 55 U/L Normal 13-60 [facility] Comment on above: Performed By: #### C DP, LIP, CP #### [facility] [address] [place] [address] Business Administration Professor: Michael Meyer MD No Panel Informationon 11-08 [facility] Urinalysison 11-08-2024 Bilirubin Ql (U) Negative NEGATIVE [facility] Clarity (U) Clear Clear [facility] Color (U) Yellow Yellow [facility] Glucose Test strip (U) [Mass/Vol] Negative NEGATIVE mg/dL [facility] Hemoglobin Auto test strip Ql (U) Negative NEGATIVE [facility] Interpretation and review of laboratory results Abnormal [facility] Ketones (U) [Mass/Vol] Negative NEGATIVE mg/dL [facility] Leukocyte esterase Test strip Ql (U) Negative NEGATIVE [facility] Nitrite Ql (U) Negative NEGATIVE [facility] pH (U) 6.0 [pH] 5.0 - 9.0 [facility] Protein (U) [Mass/Vol] Negative NEGATIVE mg/dL [facility] Specific gravity (U) [Rel density] Low 1.010 - 1.020 [facility] Urobilinogen Qn (U) Normal 0.0 - 1. 0 EU/dL [facility] Urinalysis, Routineon 2024 Bilirubin, SemiQt,Ur Negative Normal NEG [facility] Comment on above: Performed By: #### U A #### [facility] [address] [place] [address] Business Administration Professor: Michael Meyer MD Blood, Urine Negative Normal NEG [facility] Comment on above: Performed By: #### U A #### [facility] [address] [place] [address] Business Administration Professor: Michael Meyer MD Clarity (U) Clear Normal CLEAR [facility] Comment on above: Performed By: #### U A #### [facility] [address] [place], [place] [id number] Business Administration Professor: Michael Meyer MD Color (U) Yellow Normal YEL [facility] Comment on above: Performed By: #### U A #### [facility] [address] [place] [address] Dr[place], [place] [phone] Business Administration Professor: Michael Meyer MD Glucose Ql (U) Negative Normal NEG [facility] Comment on above: Performed By: #### U A #### [facility] [address] [place] [address] Business Administration Professor: Michael Meyer MD Ketones Ql (U) Negative Normal NEG [facility] Comment on above: Performed By: #### U A #### [facility] [address] [place] [address] Dr. [place], [place] [phone] Business Administration Professor: Michael Meyer MD Leukocyte esterase Test strip Ql (U) Negative Normal NEG [facility] Comment on above: Performed By: #### U A #### [facility] [address] [place] [address] Dr[address] [place], [place] [phone] Business Administration Professor: Michael Meyer MD Nitrite,Ur Negative Normal [facility] Comment on above: Performed By: #### U A #### [facility] [address] [place] [address] Dr[place], [place] [phone] Business Administration Professor: Michael Meyer MD PH,Ur 6.0 Normal 5.0-9.0 [facility] Comment on above: Performed By: #### U A #### [facility] [address] [place], [place] [phone] Business Administration Professor: Michael Meyer MD Protein Ql (U) Negative Normal NEG [facility] Comment on above: Performed By: #### U A #### [facility] [address] [place], [place] [phone] Business Administration Professor: Michael Meyer MD Spec. [place],Ur <1.005 Low 1.010-1.020 [facility] Comment on above: Performed By: #### U A #### [facility] [address] [place] [address] Business Administration Professor: Michael Meyer MD Urobilinogen,Ur Normal Normal 0.0-1.0 [facility] Comment on above: Performed By: #### U A #### [facility] [address] [place], [place] [phone] Business Administration Professor: Michael Meyer MD Ambulatory Visit Summaryon 0 05-15-2024 Ambulatory Visit [...] you for choosing us for your care. [facility] Ambulatory Visit Summary Ambulatory Visit Summary JUNIOR GONZALEZ :1980 Visit Date:05/15/2024 Ambulatory Visit Instructions Your Care Team Attending Physician - DARA FARIAS, David Loera Primary Care Physician - MIKALA JANE, CLARI Ribera Referring Physician - ISABELLA KAPLAN CNP This [...] you for choosing us for your care. [facility] Physician Referralon 023 Physician Referral [phone] [id number] TIFF Normal [facility] MRI LSPINE WO CONon 05-21-20 [...] MICHAEL RAE Date: 2022-05-21 18:38 Normal [facility] XR FOREIGN BODY EYEon 2021 XR FOREIGN BODY EYE EXAMINATION: XR FOREIGN BODY EYE HISTORY: Foreign body in eye COMPARISON: No relevant comparison available. FINDINGS: ORBITS: Negative for a metallic foreign body. OTHER: Negative. IMPRESSION: 1. No metallic foreign body within the orbits. Electronically authenticated by: APRYL RIOS Date: 2022-05-21 10:[address] [facility] XR LSPINE MIN 4 VIEWSon 02-01 [...] by: APRYL RIOS Date: 2022-02-22 11:[address] [facility] No Panel Informationon 09-13 No acute findings. [facility] EXAMINATION: THREE XRAY VIEWS OF THE RIGHT ANKLE; THREE XRAY VIEWS OF THE LEFT FOOT 09/13/2021 9:16 am COMPARISON: None. HISTORY: ORDERING SYSTEM PROVIDED HISTORY: Pain TECHNOLOGIST PROVIDED HISTORY: Pain FINDINGS: No acute fracture demonstrated. 2 threaded screws noted medial malleolus from repair prior injury. Alignment anatomic. Small plantar and dorsal calcaneal spurs present. Zgfe-ab-exowklky degenerative change primarily midfoot. Overall alignment anatomic. Soft tissues unremarkable. [facility] Jeronimo ArtDO - 09/13/2021 EXAMINATION: THREE XRAY VIEWS OF THE RIGHT ANKLE; THREE XRAY VIEWS OF THE LEFT FOOT 09/13/2021 9:16 am COMPARISON: None. HISTORY: ORDERING SYSTEM PROVIDED HISTORY: Pain TECHNOLOGIST PROVIDED HISTORY: Pain FINDINGS: No acute fracture demonstrated. 2 threaded screws noted medial malleolus from repair prior injury. Alignment anatomic. Small plantar and dorsal calcaneal spurs present. Uyzf-pn-gtdwzlzs degenerative change primarily midfoot. Overall alignment anatomic. Soft tissues unremarkable. IMPRESSION: No acute findings. [employer] Work Phone: [email or web address] Work Phone: No acute findings. [facility] EXAMINATION: THREE XRAY VIEWS OF THE RIGHT FOOT; THREE XRAY VIEWS OF THE LEFT ANKLE 09/13/2021 9:14 am COMPARISON: None. HISTORY: ORDERING SYSTEM PROVIDED HISTORY: pain TECHNOLOGIST PROVIDED HISTORY: pain FINDINGS: No acute fracture demonstrated. Alignment is anatomic. 2 threaded screws noted within the medial malleolus. Gwcf-rp-ezwmyjza degenerative change primarily midfoot. Small plantar and dorsal calcaneal spurs present. Soft tissues unremarkable. PN Jeronimo Herrera DO - 09/13/2021 EXAMINATION: THREE XRAY VIEWS OF THE RIGHT FOOT; THREE XRAY VIEWS OF THE LEFT ANKLE 09/13/2021 9:14 am COMPARISON: None. HISTORY: ORDERING SYSTEM PROVIDED HISTORY: pain TECHNOLOGIST PROVIDED HISTORY: pain FINDINGS: No acute fracture demonstrated. Alignment is anatomic. 2 threaded screws noted within the medial malleolus. Zybf-hi-tozuugqh degenerative change primarily midfoot. Small plantar and dorsal calcaneal spurs present. Soft tissues unremarkable. IMPRESSION: No acute findings. [facility] Phone: No Panel InformationOrdered By: Jeronimo Art on 09-13-2021 [facility] Phone: XR ANKLE LEFT (MIN 3 VIEWS)o n 09-13-2021 Radiology Study observation (narrative) [facility] Phone: XR ANKLE RIGHT (MIN 3 VIEWS) on 09-13-2021 Radiology Study observation (narrative) [facility] Phone: XR FOOT LEFT (MIN 3 VIEWS)on 09-13-2021 Radiology Study observation (narrative) [facility] Phone: XR FOOT RIGHT (MIN 3 VIEWS)o n 09-13-2021 Radiology Study observation (narrative) [facility] Phone: XR ABDOMEN (KUB) (SINGLE AP VIEW)Ordered By: Sahil Interiano on 05-08-2021 Nonobstructive bowel gas pattern. No radiodensities diagnostic of nephroliths. [facility] Phone: EXAMINATION: ONE SUPINE XRAY VIEW(S) OF THE ABDOMEN 05/08/2021 10:35 am COMPARISON: 01 May 2021 HISTORY: ORDERING SYSTEM PROVIDED HISTORY: Microscopic hematuria FINDINGS: The bowel gas pattern is non obstructive. No organomegaly, free air or abnormal calcifications are noted. Mild levo scoliotic curvature is present. [facility] Phone: [facility], [facility] Incoming Radiant Results From [email or web address] - 05/08/2021 2:06 PM EDT EXAMINATION: ONE SUPINE XRAY VIEW(S) OF THE ABDOMEN 05/08/2021 10:35 am COMPARISON: 01 May 2021 HISTORY: ORDERING SYSTEM PROVIDED HISTORY: Microscopic hematuria FINDINGS: The bowel gas pattern is non obstructive. No organomegaly, free air or abnormal calcifications are noted. Mild levo scoliotic curvature is present. IMPRESSION: Nonobstructive bowel gas pattern. No radiodensities diagnostic of nephroliths. [facility] [facility] Phone: [facility] Phone: No Panel InformationOrdered By: Fatuma Sanchez on 05-01-2021 1. No acute osseous abnormality of the right ankle. Posttraumatic and postsurgical changes as above. Mild tibiotalar joint osteoarthritis. 2. Acute osseous abnormality of the right foot. Chronic appearing well-defined erosion or subchondral cyst at the base of the 3rd metatarsal without associated joint space loss. This is a nonspecific finding. [facility] Phone: EXAMINATION: THREE XRAY VIEWS OF THE [...] base of the 3rd metatarsal is nonspecific. [employer] [facility] Phone: [facility], [facility] Incoming Radiant Results From [email or web address] - 05/01/2021 5:46 PM EDT EXAMINATION: THREE [...] space loss. This is a nonspecific finding. [facility] [facility] Phone: [facility] Phone: Unremarkable left wrist/left hand series. There are no plain radiographic findings to suggest an active synovial process of bone as rheumatoid arthritis [employer] Phone: EXAMINATION: 2 XRAY VIEWS OF THE LEFT WRIST; TWO XRAY VIEWS OF THE LEFT HAND 05/01/2021 11:10 am COMPARISON: None. HISTORY: ORDERING SYSTEM PROVIDED HISTORY: Seropositive rheumatoid arthritis (HCC) FINDINGS: The bones and joints are unremarkable without definite fracture, dislocation, significant degenerative/erosive change, radiopaque foreign body, abnormal soft tissue calcification or bony destructive lesion [facility] Phone: [facility], [facility] Incoming Radiant Results From [employer] - 05/01/2021 11:26 AM EDT EXAMINATION: 2 [...] synovial process of bone as rheumatoid arthritis [facility] Phone: [facility] Phone: XR ABDOMEN (KUB) (SINGLE AP VIEW)Ordered By: Sahil Interiano on 05-01-2021 No significant radiographic abnormality in the abdomen. [facility] Phone: EXAMINATION: ONE SUPINE XRAY VIEW(S) OF THE ABDOMEN 05/01/2021 10:51 am COMPARISON: None. HISTORY: ORDERING SYSTEM PROVIDED HISTORY: Pain FINDINGS: Nonobstructive bowel gas pattern. No abnormal calcifications overlying the gallbladder urinary tract. No mass effect. Osseous structures grossly intact. [facility] Phone: [facility], [facility] Incoming Radiant Results From [employer] - 05/01/2021 11:21 AM EDT EXAMINATION: ONE SUPINE XRAY VIEW(S) OF THE ABDOMEN 05/01/2021 10:51 am COMPARISON: None. HISTORY: ORDERING SYSTEM PROVIDED HISTORY: Pain FINDINGS: Nonobstructive bowel gas pattern. No abnormal calcifications overlying the gallbladder urinary tract. No mass effect. Osseous structures grossly intact. IMPRESSION: No significant radiographic abnormality in the abdomen. [facility] Phone: [facility] Phone: XR ANKLE LEFT (MIN 3 VIEWS)O rdered By: Fatuma Sanchez on 05-01-2021 Moderate calcaneal spurring [facility] Phone: EXAMINATION: THREE XRAY VIEWS OF THE LEFT ANKLE 05/01/2021 11:12 am COMPARISON: None. HISTORY: ORDERING SYSTEM PROVIDED HISTORY: Seropositive rheumatoid arthritis (HCC) FINDINGS: There is moderate spurring of the superior aspect of the os calcis. The bones and joints are otherwise unremarkable without definite effusion, acute fracture, dislocation radiopaque foreign body or bony destructive lesion [facility] Phone: [place], [facility] Incoming Radiant Results From [email or web address] - 05/01/2021 11:21 AM EDT EXAMINATION: THREE [...] bony destructive lesion IMPRESSION: Moderate calcaneal spurring [facility] Phone: [facility] Phone: XR FOOT LEFT (2 VIEWS)Ordere d By: Fatuma Sanchez on 05-01-2021 Mild degenerative changes There are no plain radiographic findings to suggest an active synovial process of bone as rheumatoid arthritis [facility] Phone: EXAMINATION: TWO XRA Y VIEWS OF [...] radiopaque foreign body or bony destructive lesion [facility] Phone: [place], [facility] Incoming Radiant Results From [email or web address] - 05/01/2021 11:29 AM EDT EXAMINATION: TWO [...] synovial process of bone as rheumatoid arthritis [facility] Phone: [facility] Phone: XR HAND RIGHT (2 VIEWS)Order ed By: Fatuma Sanchez on 05-01-2021 Unremarkable two-vie w right hand series. There are no definite plain radiographic findings to suggest an active synovial process of bone as rheumatoid arthritis [facility] Phone: EXAMINATION: TWO XRA Y VIEWS OF THE RIGHT HAND 05/01/2021 11:12 am COMPARISON: None. HISTORY: ORDERING SYSTEM PROVIDED HISTORY: Seropositive rheumatoid arthritis (HCC) FINDINGS: The bones and joints are unremarkable without definite fracture, dislocation, significant degenerative/erosive change, radiopaque foreign body, abnormal soft tissue calcification or bony destructive lesion [facility] Phone: [place], [facility] Incoming Radiant Results From [email or web address] - 05/01/2021 11:24 AM EDT EXAMINATION: TWO [...] synovial process of bone as rheumatoid arthritis [facility] Phone: [facility] Phone: XR WRIST RIGHT (2 VIEWS)Orde red By: Fatuma Sanchez on 05-01-2021 Unremarkable two-vie w right wrist series [facility] Phone: EXAMINATION: 2 XRAY VIEWS OF THE RIGHT WRIST; 05/01/2021 11:11 am COMPARISON: None. HISTORY: ORDERING SYSTEM PROVIDED HISTORY: Seropositive rheumatoid arthritis (HCC) FINDINGS: The bones and joints are unremarkable without definite fracture, dislocation, significant degenerative/erosive change, radiopaque foreign body or bony destructive lesion [facility] Phone: [place], [facility] Incoming Radiant Results From [email or web address] - 05/01/2021 11:23 AM EDT EXAMINATION: 2 XRAY VIEWS OF THE RIGHT WRIST; 05/01/2021 11:11 am COMPARISON: None. HISTORY: ORDERING SYSTEM PROVIDED HISTORY: Seropositive rheumatoid arthritis (HCC) FINDINGS: The bones and joints are unremarkable without definite fracture, dislocation, significant degenerative/erosive change, radiopaque foreign body or bony destructive lesion IMPRESSION: Unremarkable two-view right wrist series [facility] Phone: [facility] Phone: XR WRIST RIGHT (MIN 3 VIEWS) Ordered By: Apryl Tucker on 03-01-2021 Unremarkable right wrist. [facility] Phone: EXAMINATION: 3 XRAY VIEWS OF THE [...] degenerative findings. No appreciable soft tissue abnormality. [facility] Phone: [facility], [facility] Incoming Radiant Results From [email or web address] - 03/01/2021 7:52 PM EDT EXAMINATION: 3 [...] soft tissue abnormality. IMPRESSION: Unremarkable right wrist. [employer] Work Phone: [employer] Work Phone: XR KNEE RIGHT (3 VIEWS)on Joint effusion witho ut acute osseous abnormality. [employer] EXAMINATION: THREE XRAY VIEWS OF THE RIGHT [...] effusion. The periarticular soft tissues are unremarkable. [employer] [facility], pn Incoming Radiant Results From [email or web address] - 09/04/2019 6:08 PM EST EXAMINATION: THREE [...] IMPRESSION: Joint effusion without acute osseous abnormality. [employer] XR HAND LEFT (MIN 3 VIEWS)on 05-12-2019 No acute osseous abnormality. [employer] EXAMINATION: THREE XRAY VIEWS OF THE LEFT HAND 05/12/2019 12:22 pm COMPARISON: November 12, 2018 HISTORY: ORDERING SYSTEM PROVIDED HISTORY: pain TECHNOLOGIST PROVIDED HISTORY: pain FINDINGS: There is no evidence of acute fracture. There is normal alignment. No acute joint abnormality. No focal osseous lesion. No focal soft tissue abnormality. [employer] [facility], [facility] Incoming Radiant Results From [email or web address] - 05/12/2019 12:48 PM EDT EXAMINATION: THREE XRAY VIEWS OF THE LEFT HAND 05/12/2019 12:22 pm COMPARISON: November 12, 2018 HISTORY: ORDERING SYSTEM PROVIDED HISTORY: pain TECHNOLOGIST PROVIDED HISTORY: pain FINDINGS: There is no evidence of acute fracture. There is normal alignment. No acute joint abnormality. No focal osseous lesion. No focal soft tissue abnormality. IMPRESSION: No acute osseous abnormality. [facility] [place] MRI BRAIN WO CONTRASTon - MRI BRAIN WO CONTRAST EXAMINATION: MRI OF [...] Tiffanie Hughes MD 04/24/19 Final result Normal [facility] MRI CERVICAL SPINE WO CONTRA [...] Tiffanie Hughes MD 04/24/19 Final result Normal [facility] Vital Signs Date Time Vital Sign Value Performing Clinician Robson henry 11-08-2024 18:06-0500 Diastolic blood pressure 94 mm[Hg] Shyam Peterson MD Work Phone: [facility] 11-08-2024 18:06-0500 Respiratory rate 16 /min Shyam Peterson MD Work Phone: [facility] 11-08-2024 18:06-0500 Systolic blood pressure 156 mm[Hg] Shyam Peterson MD Work Phone: [facility] 11-08-2024 15:30-0500 Body temperature 98.01 [degF] Shyam Peterson MD Work Phone: [facility] 11-08-2024 15:30-0500 Heart rate 86 /min Shyam Peterson MD Work Phone: [facility] 11-08-2024 15:30-0500 SaO2% (BldA) [Mass fraction] 97 % Shyam Peterson MD Work Phone: [facility] 05-15-2024 14:12-0400 Blood Pressure Location David CRANEL [facility] 05-15-2024 14:12-0400 Diastolic blood pressure 76 mm[Hg] David DIAMOND [facility] 05-15-2024 14:12-0400 Heart rate 76 /min David CRANEL [facility] 05-15-2024 14:12-0400 Respiratory rate 16 /min David DAIMOND [facility] 05-15-2024 14:12-0400 Systolic blood pressure 118 mm[Hg] David NILL [facility] [place] 09-13-2021 08:22-0500 Diastolic blood pressure 86 mm[Hg] Francis Beachrov DO Work Phone: [employer] 09-13-2021 08:22-0500 Systolic blood pressure 147 mm[Hg] Francis Beachrov DO Work Phone: [employer] 09-13-2021 08:20-0500 Body mass index (BMI) [Ratio] 37.2 kg/m2 Francis Bobrov DO Work Phone: [employer] 09-13-2021 08:20-0500 Body temperature 97.39 [degF] Francis Beachrov DO Work Phone: [employer] 09-13-2021 08:20-0500 Body weight 95.25 kg Francis Beachrov DO Work Phone: [employer] 09-13-2021 08:20-0500 Heart rate 85 /min Francis Beachrov DO Work Phone: [employer] 09-13-2021 08:20-0500 Respiratory rate 16 /min Francis Beachrov DO Work Phone: [employer] 09-13-2021 08:20-0500 SaO2% (BldA) [Mass fraction] 99 % Francis Beachrov DO Work Phone: [employer] 03-01-2021 18:28-0400 Diastolic blood pressure 96 mm[Hg] Clari Mikala Work Phone: [employer] Work Phone: 03-01-2021 18:28-0400 Systolic blood pressure 151 mm[Hg] Clari Mikala Work Phone: [employer] Work Phone: 03-01-2021 18:26-0400 Body temperature 98.71 [degF] Clari Mikala Work Phone: [employer] Work Phone: 03-01-2021 18:26-0400 Heart rate 70 /min [employer] Work Phone: [employer] Work Phone: 03-01-2021 18:26-0400 Respiratory rate 18 /min Clari [employer] Work Phone: [employer] Work Phone: 03-01-2021 18:26-0400 SaO2% (BldA) [Mass fraction] 98 % [employer] Work Phone: [employer] Work Phone: 09-06-2019 20:00-0500 Body Temperature 97.9 [degF] Oscar [place] 09-06-2019 20:00-0500 BP Diastolic 100 mm[Hg] [facility] [place] 09-06-2019 20:00-0500 BP Systolic 154 mm[Hg] [facility] [place] 09-06-2019 20:00-0500 Pulse (Heart Rate) 89 /min Oscar [facility], [place] 09-06-2019 20:00-0500 Pulse Oximetry 97 % Oscar [employer] [place] , [place] 09-06-2019 20:00-0500 Respiratory Rate 19 /min Oscar [employer] [place], [place] 09-04-2019 17:38-0500 BMI (Body Mass Index) 36.49 kg/m2 David [facility] [place] 09-04-2019 17:38-0500 Body Temperature 98.2 [degF] [facility], [place] 09-04-2019 17:38-0500 Body weight 93.44 kg David HuitronFleksy [facility], [place] 09-04-2019 17:38-0500 BP Diastolic 94 mm[Hg] David H[employer] [facility], [place] 09-04-2019 17:38-0500 BP Systolic 142 mm[Hg] David Huitronpatrick [facility] [employer] [facility], [place] 09-04-2019 17:38-0500 Pulse (Heart Rate) 87 /min David Becker [facility], [place] 09-04-2019 17:38-0500 Pulse Oximetry 99 % David Perez [facility], [place] 09-04-2019 17:38-0500 Respiratory Rate 14 /min David Carter [facility], [place] 05-12-2019 12:15-0400 Body Temperature 98.01 [degF] [place], [place] 05-12-2019 12:14-0400 BP Diastolic 85 mm[Hg] [place], [place] 05-12-2019 12:14-0400 BP Systolic 152 mm[Hg] [place] 05-12-2019 12:14-0400 Pulse (Heart Rate) 87 /min [place], [place] 05-12-2019 12:14-0400 Pulse Oximetry 96 % [place] 05-12-2019 12:14-0400 Respiratory Rate 16 /min [place], [place] Encounters Encounter Date Encounter Type Care Provider Facility Start: 11-08-2024 End: 11-08-2024 Emergency department patient visit Shyam Peterson MD Work Phone: [facility] Comment on above: Sacral lesion (Prima ry Dx) Start: 10-22-2024 End: 10-22-2024 ambulatory Lee Maradiaga MD Facility: [facility] Start: 10-15-2024 End: 10-15-2024 ambulatory Lee Maradiaga MD Facility:[facility] Start: 07-18-2024 End: 07-18-2024 Bamtanvi flowsnabil Gonzalez [employer] Work Phone: [facility] Start: 07-18-2024 End: 07-18-2024 Bamboo flowsnabil Gonzalez [employer] Work Phone: [facility] Start: 07-18-2024 End: 07-18-2024 Office outpatient visit 25 minutes Ruth Ann Brittni Apling [employer] Work Phone: [facility] Comment on above: Low back pain, unspe cified back pain laterality, unspecified chronicity, unspecified whether sciatica present (Primary Dx); Bilateral sciatica Start: 07-18-2024 End: 07-18-2024 ambulatory RUTH ANN Elkins APLING Not Available Start: 05-15-2024 End: 05-15-2024 ambulatory ISABELLA KAPLAN Facility: [place] Start: 05-15-2024 End: 05-15-2024 Patient encounter procedure David DIAMOND [facility] [place] Start: 01-24-2024 End: 01-24-2024 ambulatory WILL SANTANA Not Available Start: 01-11-2024 End: 01-11-2024 ambulatory RUTH ANN Elkins APLING Not Available Start: 12-12-2023 End: 12-12-2023 ambulatory RUTH ANN B APLING Not Available Start: 11-28-2023 End: 11-28-2023 ambulatory RUTH ANN B APLING Not Available Start: 09-27-2023 ambulatory ISABELLA KAPLAN Facilit y:DARIAN [place] Start: 09-12-2023 End: 09-12-2023 ambulatory RUTH ANN Elkins APLING Not Available Start: 08-22-2023 ambulatory ISABELLA KAPLAN Facility: [facility] Start: 08-12-2023 ambulatory Lakshmi Ruiz [facility] Start: 07-06-2022 End: 07-07-2022 ambulatory ISABELLA KAPLAN Facility:[facility] Start: 05-21-2022 End: 05-22-2022 ambulatory ISABELLA KAPLAN Facility:[facility] Start: 03-19-2022 End: 03-27-2022 ambulatory ISABELLA KAPLAN Facility:[facility] Start: 02-22-2022 End: 02-23-[address] APRYL RIOS Facility:[facility] Start: 09-13-2021 End: 09-13-2021 Emergency department patient visit Francis Pinto DO Work Phone: [facility] Comment on above: Sprain of right foot , initial encounter (Primary Dx); Sprain of left ankle, unspecified ligament, initial encounter Start: 05-08-2021 End: 05-10-2021 Subsequent hospital visit by physician Karoline Meek Dr Room 4 [facility] Comment on above: Microscopic hematuri a; Flank pain; Hydronephrosis with ureteral calculus Start: 05-01-2021 End: 05-03-2021 Subsequent hospital visit by physician Karoline Meek Dr Room 2 [facility] Comment on above: Seropositive rheumat oid arthritis (HCC) Pain Start: 03-01-2021 End: 03-01-2021 Emergency department patient visit Clari Mikala Work Phone: [facility] Comment on above: Strain of right wris t, initial encounter (Primary Dx) Start: 11-07-2020 End: 11-09-2020 Subsequent hospital visit by physician Clari Glasgowhmann [facility] Start: 09-06-2019 End: 09-06-2019 Emergency department patient visit Oscar Zuniga Work Phone: [facility] Comment on above: Sprain of collateral ligament of right knee, initial encounter (Primary Dx) Start: 09-04-2019 End: 09-04-2019 Emergency department patient visit David Perez [facility] ED Comment on above: Injury of right knee , initial encounter (Primary Dx); Effusion of right knee joint Start: 05-12-2019 End: 05-12-2019 Emergency department patient visit Clari [facility] ED Comment on above: Contusion of left coles nd including fingers, initial encounter (Primary Dx) Start: 04-20-2019 End: 04-20-2019 Emergency department patient visit JEAN HARPER [facility] Procedures Date Procedure Procedure Detail Performing Clinician Start: 11-08-2024 Ct abdomen & pelvis w/contrast material Will Simons PA-C Work Phone: Start: 11-08-2024 Urnls dip stick/tabl et rgnt auto w/o microscopy Will Simons PA-C Work Phone: Start: 11-08-2024 Comprehensive metabo lic panel Will Simons PA-C Work Phone: Start: 09-13-2021 End: 09-13-2021 Radex ankle complete [...] DTaP/Tdap/Td vaccine (2 - Td or Tdap) [facility] Start: 11-28-2027 DTaP/Tdap/Td vaccine (2 - Td) DTaP/Tdap/Td vaccine (2 - Td) [facility] [place], [place] Start: 08-01-2024 End: 08-01-2024 Patient encounter procedure 08/01/2024 8:00 AM EDT Office Visit [facility] [address] [place] [address] Ruth Ann Gonzalez, AUTO BUMPER STRAIGHTENER [address] [place] [address] [facility] Start: 07-18-2024 End: 07-18-2024 Patient encounter procedure 07/18/2024 8:45 AM EDT Office Visit [facility] [address] [place] [address] Ruth Ann Gonzalez, AUTO BUMPER STRAIGHTENER [address] [facility] [address] [place] [address] Low back pain, unspecified back pain laterality, unspecified chronicity, unspecified whether sciatica present (Primary Dx) [facility] Comment on above: Low back pain, unspe cified back pain laterality, unspecified chronicity, unspecified whether sciatica present (Primary Dx) Start: 11-25-2021 End: 11-25-2021 Patient encounter procedure 11/25/2021 Office Visit Rheumatology Fatuma Sanchez MD [address] [place] [address] [facility] Start: 06-24-2021 End: 06-24-2021 Patient encounter procedure 06/24/2021 Office Visit Rheumatology Fatuma Sanchez MD [address] [place], [place] [id number] [facility] Start: 06-03-2021 Influenza vaccination [facility] Start: 2021 Lipid panel Lipid screen [facility] Start: 06-03-2020 Influenza vaccination Flu vaccine (# 1) [place], [place] Start: 06-03-2019 Influenza vaccination Flu vaccine (# 1) [place] Start: 2016 Diabetes screen Diabetes screen [facility] Start: 2000 DTaP/Tdap/Td vaccine (1 - Tdap) DTaP/Tdap/Td vaccine (1 - Tdap) [place] Start: 1996 HIV screen HIV screen [place], [place] Start: [address] HIV screen [facility] Start: 1994 Varicella Vaccine (1 of 2 - 13+ 2-dose series) Varicella Vaccine (1 of 2 - 13+ 2-dose series) [place], [place] Start: 1993 COVID-19 Vaccine (1) COVID-19 Vaccin e (1) [facility] Start: 1992 DTaP/Tdap/Td vaccine (1 - Tdap) DTaP/Tdap/Td vaccine (1 - Tdap) [place] Start: 1982 Varicella Vaccine (1 of 2 - 2-dose childhood series) Varicella Vaccine (1 of 2 - 2-dose childhood series) [facility] Start: 1981 Hepatitis C screening Hepatitis C sc reen [facility] CT Abdomen and Pelvi s W contrast IV CT ABDOMEN PELVIS W IV CONTRAST Additional Contrast? None Imaging STAT 11/08/2024 4:31 PM EST Lucas Lopezalexia [facility] End: 05-12-2019 Splint application Splint application Procedures STAT One Time for 1 Occurrences starting 05/12/2019 until 05/12/2019 [place] Comment on above: One Time for 1 Occur rences starting 05/12/2019 until 05/12/2019 Immunizations Immunization Date Immunization Notes Care Provider [facility] 10-22-2019 influenza, injectable, quadrivalent, preservative free Ruth Ann Gonzalez [employer] Work Phone: [facility] 11-28-2017 tetanus toxoid, reduced diphtheria toxoid, and acellular pertussis vaccine, adsorbed Ruth Ann Gonzalez NP Work Phone: [facility] 07-14-2010 influenza virus vaccine, whole virus Clari Glasgowhmann [place] NEGATED: Highlighted row has not occurred!05-11-2021 SARS-CoV-2 (COVID-19) Ad26 vaccine, recombinant David CRANEL [facility] Payers Date Payer Category Payer Unknown 2024 [facility] [id number] 2024 Unknown [id number] 2022 Medicaid [id number] 2020 Unknown MIROSLAVA BAUTISTA BRANNON [id number] 2020-Present [phone] [address] [place] [address] [id number]. [id number] 2019 Unknown [id number] 2019 Unknown [facility] [id number] xxxxxxxxx 2019-Present [address] [address] [place] [address] xxxxxxxxx [id number]. [id number] 1981 Unknown [id number] 2.840.1.002124.3.579.2. 175 1981 Unknown [id number] 2.840.1.361054.3.579.2. 593 1981 Unknown [id number] 2.16840.1.532207.3.579.2. 593 1981 Unknown [id number] 2.16840.1.034295.3.579.2. 593 1981 Unknown [id number] 2.16840.1.029300.3.579.2. 593 1981 Unknown [id number] 2.16840.1.522413.3.579.2. 727 1981 Unknown [id number] 2.16840.1.090465.3.579.2. 727 1981 Unknown [id number] 2.16.840.1.042840.3.579.2. 9 1981 Unknown [id number] 2.16.840.1.725943.3.579.2. 9 1981 Unknown [id number] 2.16.840.1.399171.3.579.2. 1258 1981 Unknown [id number] 2.16.840.1.444203.3.579.2. 1258 1981 Unknown [id number] 2.16.840.1.601701.3.579.2. 1258 1981 Unknown [id number] 2.16.840.1.194501.3.579.2. 9 1981 Unknown [id number] 2.16.840.1.944910.3.579.2. 1258 1981 Unknown [id number] 2.16.840.1.673111.3.579.2. 1258 1981 Unknown [id number] 2.16.840.1.042574.3.579.2. 1258 1981 Unknown [id number] 2.16.840.1.903174.3.579.2. 196 1981 Unknown [id number] 2.16.840.1.865077.3.579.2. 196 1981 Unknown [id number] 2.16.840.1.377256.3.579.2. 173 1959 Unknown [id number] 1.2.840.110109.1.13.239.2. 7.3.056124.315 1959 Unknown [id number] Social History Date Type Detail Facility Start: 10-16-2017 End: 09-04-2019 Tobacco smoking status RIIS Never smoker [email or web address] Start: 09-04-2019 End: 09-22-2021 Alcohol intake Current non-drinker of alcohol (finding) [facility] [place] [place] Start: 10-16-2017 Alcohol Comment very reare Emma parikh MEHREEN COBB Start: 1980 Sex Assigned At Not on file [facility] Start: 05-12-2019 End: 09-22-2021 Alcohol intake No [facility] Start: 10-16-2017 End: 09-06-2019 Tobacco use and exposure Never used [facility] Exposure to SARS-CoV -2 (event) Not sure [facility] [employer] Start: 03-27-2021 Alcohol Comment very rare Emma parikh Work Phone: Tobacco smoking status Never [facility] Start: 01-11-2024 End: 07-18-2024 Alcoholic beverage intake Current drinker of alcohol (finding) [facility] Start: 09-22-2021 End: 01-11-2024 Alcoholic beverage intake [facility] Start: 02-10-2023 Alcohol Comment caffeine intak e: 3-4 cups per day, soda [facility] Start: 10-03-2023 Gender identity Identifies as male gender (finding) [facility] Functional Status Date Assessment Result Facility 05-15-2024 Functional Status N/A [facility] Clinical Notes 09-13-2021 to 11-08-2024 Discharge InstructionsAttachRaciel Gonzalez NP - 07/18/2024 8:45 AM EDTInstructionsAttachments Note Date & Type Note Facility 11-08-2024 Hospital Discharge instructions Will Simons II, PA-C - 11/08/2024 5:[address] scan is concerning for a lesion on your tailbone. This will require further workup and may need an MRI. You are being referred to the specialist on-call, please call tomorrow for an appointment. CT reading is as follows, IMPRESSION: 1. No acute intra-abdominal or pelvic abnormality. 2. Indeterminate 7.6 cm lytic expansile lesion involving the mid to lower sacrum suspicious for malignancy. Recommend tissue sampling. Additional MRI may be helpful further additional MRI may be helpful for characterization. 3. 2 discrete sclerotic lesions within the right ilium the largest of which measures up to 1.2 cm. Findings could reflect bone islands although metastatic disease cannot be excluded. 4. 2 mm nonobstructing left nephrolithiasis. This result has not been signed. Information might be incomplete. You will receive a survey in the next couple days regarding your experience in the ED. We are constantly striving to improve our care and welcome your feedback. Thank you very much for your time. The emergency department evaluation is not a complete evaluation, you're always required to followup with another doctor within the next few days to assess how your symptoms are progressing and to ensure that there is no indication for further testing or returning to the hospital. Even with treatment sometimes your condition worsens and you will need to return to the hospital. If you are having pain and it is getting worse you should return to the hospital. If you have any new symptoms that were not addressed at your original visit you should return to the hospital. If you're having difficulty breathing but it is getting worse you should return to the hospital. If you're vomiting and cannot take the medicines that were prescribed you should return to the hospital. If you're having persistent fevers you should return to the hospital. If you have any question of whether or not your symptoms are serious enough or for any other urgent concerns- always return to the hospital for repeat evaluation. The following attachments cannot be sent through Care Everywhere.Pain: Coccyx (American)documented in this encounter [facility] 07-18-2024 History of Present illness Narrative Subjective [...] has a new job working at a [employer], 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 [place]: XR [facility] 11/28/23, [...] activities as tolerated documented in this encounter [facility] 05-15-2024 Note General Surgery Offi [...] qualifying data Procedure/Surgica (more content not included)... 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 Son states he will give his father the message to return call. [facility] 07-06-2022 Note CONSULTATION CONSULTATION DATE: 07/06/2022 [...] his work. 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 He has low back pain [...] CC: Chen Kaplan CNP [facility] 09-13-2021 Hospital Discharge instructions Francis Pinto, DO - 09/13/2021 Return to the Emergency Department immediately if you develop worsening pain, numbness, weakness , or you have any other concerns. Please follow up with your orthopaeidc doctor in 2-3 days. Ice, elevate Use crutches The following attachments cannot be sent through Care Everywhere.Ankle Sprain (American)documented in this encounter [employer] Phone: Evaluation + Plan note No data available for this section [facility] General Surgery Yu Evaluation note Diagnosis Strain of right wrist, initial encounter- Primary documented in this encounter [employer] Phone: evaluation note* Diagnosis Seropositive rheumatoid arthritis (HCC) Rheumatoid arthritis documented in this encounter [employer] Phone: evaluation note* Diagnosis Pain Generalized pain documented in this encounter [employer] Phone: evaluation note* Diagnosis Microscopic hematuria Flank pain Abdominal pain, unspecified site Hydronephrosis with ureteral calculus Calculus of ureter documented in this encounter [employer] Phone: evaluation note* Diagnosis Sprain of right foot, initial encounter- Primary Sprain of left ankle, unspecified ligament, initial encounter documented in this encounter [facility] Phone: evaluation note* Diagnosis Low back pain, unspecified back pain laterality, unspecified chronicity, unspecified whether sciatica present- Primary Bilateral sciatica Sciatica [facility] Diagnosis Sacral lesion- Primary Disorders of sacrum documented in this encounter Lucas Maya [facility] Attachments The following attachments cannot be sent through Care Everywhere. * Strain or Sprain (American) [facility] Work Phone: Hospital Discharge instructions No data available for this section [facility] Surgery Yu Progress note No data available for this section [facility] [place] Summary Purpose Family History No Family History Records FoundNo Family History Records FoundNo Family History Records FoundNo Family History Records Found No data available for this section No Family History Records FoundNo Family History Records FoundNo Family History Records FoundNo Family History Records Found Advance Directives No Advanced Directives Records FoundDocuments on File Type Date Recorded Patient Ext Js Developer Expl anation Advance Directives and Living Will Power of Meat Supervisor Documents on File Type Date Recorded Patient Ext Js Developer Expl anation ACP-Advance Directive ACP-Power of Meat Supervisor Assessments Diagnosis Injury of right knee, [...] sent through Care Everywhere. * Finger: Bruises (American) documented in this encounter* Attachments The following attachments cannot be sent through Care Everywhere. * Knee Sprain (American) documented in this encounter Additional Source Comments (unrecognized sect ion and content) No Status Records FoundNo Status Records FoundNo Status Records FoundNo Status Records FoundNo Status Records FoundNo Status Records FoundNo Status Records FoundNo Status Records Found INFORMATION SOURCE (unrecogn ized section and content) DATE CREATED AUTHOR 04/26/2019 [facility] DATE CREATED AUTHOR AUTHOR'S ORGANIZ ATION 02/16/2023 [facility] DATE CREATED AUTHOR AUTHOR'S ORGANIZ ATION 08/14/2023 Replaced by [facility] DATE CREATED AUTHOR AUTHOR'S ORGANIZ ATION 11/13/2023 [facility] DATE CREATED AUTHOR AUTHOR'S ORGANIZ ATION 05/16/2024 Montes Kuldip [facility] DATE CREATED AUTHOR AUTHOR'S ORGANIZ ATION 07/20/2024 [facility] DATE CREATED AUTHOR AUTHOR'S ORGANIZ ATION 10/30/2024 [facility] DATE CREATED AUTHOR AUTHOR'S ORGANIZ ATION 11/13/2024 Emma sam Reason for Visit (unrecogniz ed section and [...] Ankle Pain left ankle Reason Comments Pain Reason Comments Back Pain Ongoing for 3 days, located near the tailbone area down the left leg. Patient states that the pain spreads to the anal and groin areas as well. Sharp and stabbing pain. Constipation Ordered Prescriptions (unrec ognized section and content) Prescription Sig Dispensed Refills Start Date End Da te ibuprofen (IBU) 600 MG tablet Take 1 tablet by mouth every 6 hours as needed for Pain 35 tablet 0 03/01/2021 Prescription Sig Dispensed Refills Start Date End Da te methocarbamol (ROBAXIN) 500 MG tablet Take 2 tablets by mouth 4 times daily for 7 days 56 tablet 11/08/2024 11/15/2024 oxyCODONE-acetaminophen (PERCOCET) 5-325 MG per tabletIndications:Sacral lesion Take 1 tablet by mouth every 6 hours as needed for Pain for up to 3 days. Intended supply: 3 days. Take lowest dose possible to manage pain Max Daily Amount: 4 tablets 12 tablet 11/08/2024 11/11/2024 Scheduled Active and Recently Administ ered Medications [...] (Given - Provid er: Rocio Neville RN) Scheduled Medication Order 11/06/2024 11/07/2024 11/08/2024 methocarbamol (ROBAXIN) tablet 1,000 mg (COMPLETED) 1,000 mg, Oral, Once, 1 dose, On Bri 11/08/24 at 1800 1806 (Given - Provid er: Dina Almonte RN) oxyCODONE-acetaminophen (PERCOCET) 5-325 MG per tablet 1 tablet (COMPLETED) 1 tablet, Oral, ONCE, 1 dose, On Bri 11/08/24 at 1800, Maximum dose of acetaminophen is 4000 mg from all sources in 24 hours. 1806 (Given - Provid er: Dina Almonte RN) PRN Medication Order 11/06/2024 11/07/2024 11/08/2024 iopamidol (ISOVUE-370) 76 % injection 75 mL (COMPLETED) 75 mL, IntraVENous, IMG ONCE PRN, 1 dose, Starting on Bri 11/08/24 at 1624, Until Bri 11/08/24 at 1626, Other 1626 (Given - Provid er: Mckenzie Winston) Care Teams (unrecognized sec tion and content) Cage Supervisor Relationship Specialty Start Date End Date Clari Dumont [address] [place] [id number] PCP - General Nurse Practitioner 04/21/19 Cage Supervisor Relationship Specialty Start Date End Date Ac Schmid MD [address] [place] [phone] PCP - General Family Medicine 02/08/23 Isabella Kaplan MD [address] [place] [id number] Referring Physician Family Medicine 09/12/23 Cage Supervisor Relationship Specialty Start Date End Date Ac Schmid MD [address] [place] [phone] PCP - General Family Medicine 02/08/23 Isabella Kaplan MD [address] [place] [phone] Referring Physician Family Medicine 09/12/23 Cage Supervisor Relationship Specialty Start Date End Date Clari Dumont APRN - BUCK PCP - General Nurse Practitioner 04/21/19 FOR [...] BE BASED ON THE PRIMARY CLINICAL RECORDS. [facility]. provides no warranty or guarantee of the accuracy or completeness of information in this document.
== END 2024-11-13 12:41 | disposition home or self-care (01) ==
LOC: MRI 12:40
PROVIDERS: PCP Nurse Practitioner Family; Visit Provider Nurse Practitioner Family
DX: R93.89 Abnormal findings on diagnostic imaging of other specified body structures (principal); M99.84 Other biomechanical lesions of sacral region
CPT/HCPCS: 72195; 72197